=== PATIENT | male | born 1960 | race Caucasian/White ===

== ENCOUNTER 2019-09-19 00:23 | Day surgery (SDC) | payer MEDICARE, MEDICAID, SELFPAY ==
[2019-09-14 12:47] VITALS: BMI 39.5
[2019-09-19 11:44] LABS: Glucose Point of Care 110 (65-105)
[2019-09-19 11:47] VITALS: BP 111/76; PULSE 102; RESP 20; TEMP 36.9; O2SAT 90
[2019-09-19] MEDS: LACTATED RINGERS 1,000 ML 150 ML IV CONT (11:49)
[2019-09-19 11:56] LABS: INR 1.4; Prothrombin Time 16.6 Seconds (11.1-14.7)
[2019-09-19 11:57] LABS: Partial Thromboplastin Time 34.2 SECONDS (22.3-36.8)
--- NOTE | 2019-09-19 12:02 | WPDANESEPPF ---
Anes - Initial Pre Proc Eval Procedure: Operation Date: 09/19/19 12:45 Proposed Procedures p Screening Colonoscopy - Tulio Lawton MD Date/Time: 09/19/19 12:02 Surgeon: Tulio Lawton MD Pre Op Diagnosis: Screening Patient Data Age: 59 Gender: M Height: 5 ft 8 in Weight: 122.4 kg Last Vital Signs Temp 36.9 C 09/19/19 11:47 Pulse 102 H 09/19/19 11:47 Resp 20 09/19/19 11:47 BP 111/76 09/19/19 11:47 Pulse Ox 90 09/19/19 11:47 Allergies Allergy/AdvReac Type Severity Reaction Status Date / Time morphine AdvReac Unknown Increased Verified 09/19/19 11:45 HR Home Medications Medication Instructions Recorded Confirmed Type alprazolam 0.5 mg tablet 0.5 mg PO TID #90 tablet 06/19/19 09/14/19 Rx fluticasone propionate 50 2 spray NASAL DAILY PRN #18.2 ml 06/19/19 09/14/19 Rx mcg/actuation nasal spray,suspension potassium chloride 20 mEq 20 meq PO BID #180 tablet 06/28/19 09/14/19 Rx tablet,extended release albuterol sulfate 90 mcg/actuation 2 puff INHALATION Q4H PRN #6.7 gm 08/04/19 09/14/19 Rx aerosol inhaler furosemide 80 mg tablet 80 mg PO QAM #180 tablet 08/07/19 09/14/19 Rx metoprolol tartrate 100 mg tablet 150 mg PO BID #180 tablet 08/07/19 09/14/19 Rx simvastatin 40 mg tablet 40 mg PO DAILY #180 tablet 08/07/19 09/14/19 Rx warfarin 5 mg tablet See Rx Instructions PO QTUTHSA 08/24/19 09/14/19 Rx #135 tablet hydrocodone 7.5 mg-acetaminophen 1 tablet PO Q6H PRN #120 tablet 08/30/19 09/14/19 Rx 325 mg tablet aspirin 325 mg PO DAILY 09/14/19 09/14/19 History escitalopram oxalate [Lexapro] 5 mg PO DAILY 09/14/19 09/14/19 History metformin 500 mg PO BID 09/14/19 09/14/19 History methimazole 10 mg tablet 20 mg PO DAILY #90 tablet 09/19/19 Rx Laboratory Tests 09/19/19 09/19/19 11:35 11:39 PT 16.6 Seconds H Seconds (11.1-14.7) INR 1.4 APTT 34.2 SECONDS SECONDS (22.3-36.8) POC Capillary Glucose 110 mg/dl mg/dl (65-105) Patient hx anesthesia problems: none Family hx anesthesia problems: none PMFSH Past Medical History Medical History CAD (coronary artery disease) CHF (congestive heart failure) Hx of migraines Family History Family History Father Family history of cardiovascular disease Family history of malignant neoplasm of bone Mother Family history of malignant neoplasm Sibling Family history of cardiovascular disease Social History Social History Smoking status: Former smoker Smoking end date: 07/12/17 Alcohol intake: never Anes - Eval Final PreProcedure Day of Procedure 09/19/19 12:02 Patient weight: morbidly obese Heart: irregular rhythm Lungs: decreased breath sounds Airway: Mallampati scale class II Neurological: other (alert expressive aphasia) Last oral intake: >/= 8 hours ASA classification: IV Emergent: no Anesthetic plan: proceed Anesthesia type and monitoring: general GIVS and standard monitoring Informed Consent: The patient's anesthetic plan and its attendant risks and benefits were discussed with the patient/family/POA. Questions were solicited and answers provided to the satisfaction of the patient/family/POA.
--- NOTE | 2019-09-19 12:56 | PM.HPGS ---
History of Present Illness History of Present Illness Consent: Risks, benefits, and alternatives have been discussed and questions answered. Patient agrees to proceed with procedure. Chief complaint: Screening Narrative: John Peters is a 59 year old male here for first colonoscopy, he has been holding coumadin for 5 days Review of Systems Constitutional: Constitutional: Denies headache(s) and Denies weakness Eyes: Eyes: Denies blurry vision ENT: Reports Normal hearing present, Denies headache(s) and Denies neck pain Cardiovascular: Cardiovascular: Denies chest pain and Denies dyspnea Respiratory: Respiratory: Denies dyspnea Gastrointestinal: Gastrointestinal: Reports no additional gastrointestinal complaints Genitourinary: Genitourinary: Denies dysuria Musculoskeletal: Musculoskeletal: Denies neck pain Integumentary/Breasts: Skin/Breast: Denies dry skin Neurologic: Reports Normal hearing present, Denies headache(s) and Denies weakness Psychiatric: Psychiatric: Denies anxiety Endocrine: Endocrine: Denies change in body appearance Hematologic/Lymphatic: Hematologic/Lymphatic: Denies easy bleeding Allergic/Immunologic: Allergic/Immunologic: Denies urticaria PMFSH Past Medical History Medical History CAD (coronary artery disease) CHF (congestive heart failure) Hx of migraines Family History Family History Father Family history of cardiovascular disease Family history of malignant neoplasm of bone Mother Family history of malignant neoplasm Sibling Family history of cardiovascular disease Social History Social History Smoking status: Former smoker Smoking end date: 07/12/17 Alcohol intake: never Meds Home Medications and Allergies Home Medications Medication Instructions Recorded Confirmed Type alprazolam 0.5 mg tablet 0.5 mg PO TID #90 tablet 06/19/19 09/14/19 Rx fluticasone propionate 50 2 spray NASAL DAILY PRN #18.2 ml 06/19/19 09/14/19 Rx mcg/actuation nasal spray,suspension potassium chloride 20 mEq 20 meq PO BID #180 tablet 06/28/19 09/14/19 Rx tablet,extended release albuterol sulfate 90 mcg/actuation 2 puff INHALATION Q4H PRN #6.7 gm 08/04/19 09/14/19 Rx aerosol inhaler furosemide 80 mg tablet 80 mg PO QAM #180 tablet 08/07/19 09/14/19 Rx metoprolol tartrate 100 mg tablet 150 mg PO BID #180 tablet 08/07/19 09/14/19 Rx simvastatin 40 mg tablet 40 mg PO DAILY #180 tablet 08/07/19 09/14/19 Rx warfarin 5 mg tablet See Rx Instructions PO QTUTHSA 08/24/19 09/14/19 Rx #135 tablet hydrocodone 7.5 mg-acetaminophen 1 tablet PO Q6H PRN #120 tablet 08/30/19 09/14/19 Rx 325 mg tablet aspirin 325 mg PO DAILY 09/14/19 09/14/19 History escitalopram oxalate [Lexapro] 5 mg PO DAILY 09/14/19 09/14/19 History metformin 500 mg PO BID 09/14/19 09/14/19 History methimazole 10 mg tablet 20 mg PO DAILY #90 tablet 09/19/19 Rx Allergies Allergy/AdvReac Type Severity Reaction Status Date / Time morphine AdvReac Unknown Increased Verified 09/19/19 11:45 HR Vital Signs Vital Signs - 24 hr 09/19/19 11:47 Temperature 98.4 F Pulse Rate 102 H Respiratory Rate 20 Blood Pressure 111/76 Pulse Oximetry 90 Exam Const: General: comfortable and no acute distress HENMT: General nose exam: Normal nares present Eyes: General: appearance normal, both eyes and all related structures Neck: Neck: no JVD Resp: Auscultation: clear to auscultation bilaterally Cardio: Rhythm: abnormal rhythm GI: Inspection: non-distended GI Palp: Yes Soft to palpation Skin: General skin exam: normal color Neuro: General: gait normal Speech: normal speech Extrem: General: normal to inspection Psych: Mental Status: mental status grossly normal Assessment and Plan Asse
--- NOTE | 2019-09-19 13:21 | SUR.OPER ---
CLIP PLACED X2 TO TRANSVERSE COLON [id number] EXP 2022-06-10 & LOT [id number] 2022-05-31
--- NOTE | 2019-09-19 13:28 | SUR.OPER ---
CLIP TO DESCENDING COLON LOT [id number] EXP 2022-05-31
--- NOTE | 2019-09-19 13:38 | SUR.OPER ---
CLIP X2 TO SIGMOID [id number] EXP 2022-05-31
[2019-09-19 13:41] VITALS: BP 123/88; PULSE 87; RESP 20; O2SAT 99
[2019-09-19 13:51] VITALS: BP 133/92; PULSE 89; RESP 22; O2SAT 99
[2019-09-19 14:01] VITALS: BP 114/83; PULSE 84; RESP 22; O2SAT 92
== END 2019-09-19 14:16 | disposition home or self-care (01) ==
PROVIDERS: PCP Internal Medicine; Visit Provider Internal Medicine Gastroenterology
PROC: 0DJD8ZZ Inspection of Lower Intestinal Tract, Via Natural or Artificial Opening Endoscopic (ICD-10-PCS; CPT 45378; principal; 2019-09-19 12:45)
DX: Z12.11 Encounter for screening for malignant neoplasm of colon (principal); D12.2 Benign neoplasm of ascending colon; D12.3 Benign neoplasm of transverse colon; D12.5 Benign neoplasm of sigmoid colon; K63.5 Polyp of colon; I25.10 Atherosclerotic heart disease of native coronary artery without angina pectoris; I48.19 Other persistent atrial fibrillation; J44.9 Chronic obstructive pulmonary disease, unspecified; I50.9 Heart failure, unspecified; Z86.73 Personal history of transient ischemic attack (TIA), and cerebral infarction without residual deficits; Z87.891 Personal history of nicotine dependence; Z79.01 Long term (current) use of anticoagulants; Z79.82 Long term (current) use of aspirin; Z79.84 Long term (current) use of oral hypoglycemic drugs
CPT/HCPCS: 45385; 36415; 85610; 85730; 88305; J2704; J7120

== ENCOUNTER 2020-01-31 18:32 | Inpatient (IN) | payer MEDICARE, MEDICAID, SELFPAY ==
--- NOTE | ~2020-01-31 | XR_ITS ---
XR chest 1V portable DATE: 02/01/2020 08:08 INDICATION: Congestive heart failure, coronary artery disease. Weakness. TECHNIQUE: Portable upright AP chest on 02/01/2020 at 0800 hours COMPARISON: 01/31/2020 portable AP chest at 1856 hours FINDINGS: Status post sternotomy. Cardiomegaly. There is pulmonary vascular redistribution consistent with pulmonary venous hypertension. There is minimal atelectasis is suggested at the lung bases. No pulmonary consolidation, pleural effu tamiko or pneumothorax is detected. Osteopenia. IMPRESSION: Cardiomegaly Pulmonary vascular distribution suggests mild pulmonary venous hypertension Minimal atelectasis is suggested at the lung bases Reviewed, dictated and finalized at location B.
--- NOTE | ~2020-01-31 | XR_ITS ---
EXAMINATION: XR chest 1V portable INDICATION: Weakness, history of congestive heart failure TECHNIQUE: Portable AP chest at 1856 hours COMPARISON: 12/23/2018 FINDINGS: Mild interstitial and airspace opacities are present, worst in the mid and lower lung zones . No pleural effusion or pneumothorax is identified. The heart size is normal for technique. Median s ternotomy wires are consistent with prior cardiac surgery. IMPRESSION: 1. Interstitial and airspace opacities, worst in the mid and lower lung zones, consistent with atelec tasis versus pneumonia versus pulmonary edema. Reviewed, dictated and finalized at location A. IMPRESSION: 1. Interstitial and airspace opacities, worst in the mid and lower lung zones, consistent with atelectasis versus pneumonia versus pulmonary edema.
[2020-01-31 18:33] VITALS: BP 117/82; PULSE 133; RESP 17; TEMP 36.8; O2SAT 92
--- NOTE | 2020-01-31 18:38 | ECG_ITS ---
Measurements Intervals [place] Rate: 124 P: [place]: 0 QRS: 112 QRSD: 101 T: 20 QT: 346 QTc: 498 Interpretive Statements ATRIAL FIBRILLATION WITH RAPID VENTRICULAR RESPONSE DELAYED PRECORDIAL R/S TRANSITION BORDERLINE ST-T WAVE ABNORMALITY- DIFFUSE LEADS BASELINE ARTIFACT- I, III, AVL ABNORMAL ECG Electronically Signed On 02-01-2020 8:02:46 CDT by Charli Griffiths D.O.
[2020-01-31 19:02] VITALS: BP 117/82; PULSE 126
[2020-01-31] MEDS: dilTIAZem HCl INJ 25 MG/5 ML VIAL 10 MG IV PUSH (19:02)
[2020-01-31] MEDS: ONDANSETRON INJ 4 MG/2 ML VIAL IV PUSH (19:03)
--- NOTE | 2020-01-31 19:09 | ED.WEAKNESS ---
HPI - Weakness General Chief complaint: Weakness Stated complaint: weakness Time Seen by Provider: 01/31/20 18:42 Source: patient and family History of Present Illness HPI Narrative: 59 years old white male, history of CVA with coordination disorder. Patient lives alone, did not take his medication lately probably since yesterday. Patient reported getting weak over the last few days worse since yesterday. Patient denies any fever, chills, nausea, vomiting, coughing, shortness of breath, chest pain. EKG on arrival to the emergency room showed A. fib at 124 bpm, history of A. fib on Coumadin. Patient is DNR. Does not take oxygen at home, patient on CPAP. Patient came to the emergency room with his brother. Complaint: generalized weakness Related Data Home Medications Medication Instructions Recorded Confirmed aspirin 325 mg PO DAILY 09/14/19 12/11/19 Allergies Allergy/AdvReac Type Severity Reaction Status Date / Time morphine AdvReac Unknown Increased Verified 01/31/20 18:56 HR Review of Systems Review of Systems: Narrative: CONSTITUTIONAL: Denies fever, chills, or sweats. EYES: Denies visual changes, redness, or discharge. ENT: Denies rhinorrhea, congestion, sore throat, or otalgia. CARDIOVASCULAR: Denies chest pain, palpitations, or edema. RESPIRATORY: Denies cough or dyspnea. GASTROINTESTINAL: Denies abdominal pain, nausea, vomiting, or diarrhea. GENITOURINARY: Denies dysuria or hematuria. SKIN: Denies rash or itching. MUSCULOSKELETAL: Denies back pain, joint pain, or myalgia. NEUROLOGIC: Denies headache, numbness, or weakness. PSYCHIATRIC: Denies anxiety or depression. [facility] Past Medical History Medical History CAD (coronary artery disease) CHF (congestive heart failure) Colon cancer screening Hx of migraines Family History Family History Father Family history of cardiovascular disease Family history of malignant neoplasm of bone Mother Family history of malignant neoplasm Sibling Family history of cardiovascular disease Social History Social History Smoking status: Former smoker Smoking end date: 07/12/17 Alcohol intake: never Exam Narrative: Exam Narrative: General appearance: Well-developed, well-nourished, morbidly obese Skin: Normal color Head: Normocephalic, nontraumatic Eyes: Clear conjunctiva ENT: Oropharynx normal, ears normal, nose normal Neck: Supple, nontender Chest and respiratory: Airway patent, no respiratory distress, no accessory muscle use Heart: Tachycardia, irregular irregularity Abdomen: Soft, nontender, no organomegaly, quiet bowel sounds Vascular: Normal peripheral pulses, normal capillary refill. Musculoskeletal: Normal range of motion, nontender back Neurologic: Alert and oriented ?3, [employer] is normal as tested, no gross motor deficit Course Course Emergency Course: Improving Consultations Consultation #1: DR WAGNER Date: 01/31/20 Time: 20:25 Vital Signs Vital signs: Vital Signs Temperature 36.8 C 01/31/20 18:33 Pulse Rate 133 H 01/31/20 18:33 Respiratory Rate 17 01/31/20 18:33 Blood Pressure 117/82 01/31/20 18:33 Pulse Oximetry 92 01/31/20 18:33 Temperature 36.8 C 01/31/20 18:33 Pulse Rate 126 H 01/31/20 19:02 Respiratory Rate 17 01/31/20 18:33 Blood Pressure 117/82 01/31/20 19:02 Pulse Oximetry 92 01/31/20 18:33 MDM - Weakness MDM Narrative Medical decision making narrative: Patient came with general weakness, atrial fibrillation with RVR, nic
[2020-01-31 19:13] LABS: Basophils Absolute Auto 0.1 K/mm3 (0.0-0.1); Basophils Percent Auto 0.4 % (0.2-1.2); Eosinophils Percent Auto 0.1 % (0-4.4); Hematocrit 41.2 % (42.0-52.0); Hemoglobin 12.6 g/dL (14.0-18.0); Immature Granulocyte Absolute 0.07 K/mm3 (0.00-0.031); Immature Granulocyte Percent A 0.6 % (0-0.5); Lymphocytes Absolute Auto 0.61 K/mm3 (0.9-3.2); Lymphocytes Percent Auto 4.9 % (18.3-44.2); Mean Corpuscular HGB Conc 30.6 g/dl (32-36); Mean Corpuscular Hemoglobin 25.5 pg (26-34); Mean Corpuscular Volume 83.4 fl (80-100); Mean Platelet Volume 9.4 fl (7.4-10.4); Monocytes Absolute Auto 1.2 K/mm3 (0.1-0.6); Monocytes Percent Auto 9.5 % (2.6-8.5); Neutrophils Absolute Auto 10.6 K/mm3 (1.3-6.7); Neutrophils Percent Auto 84.5 % (45.5-73.1); Platelet Count Result 179 k/mm3 (150-375); Red Blood Count 4.94 M/mm3 (4.6-6.20); Red Cell Distribution Width 17.9 % (11.5-14.5); White Blood Count 12.5 K/mm3 (4.5-10.0)
[2020-01-31 19:23] LABS: INR 1.9; Prothrombin Time 21.7 Seconds (11.1-14.7)
[2020-01-31 19:24] LABS: Partial Thromboplastin Time 45.2 SECONDS (22.3-36.8)
[2020-01-31 19:25] LABS: Alanine Aminotransferase 39 U/L (4-50); Albumin Level 4.8 g/dL (3.5-5.1); Alkaline Phosphatase 119 U/L (38-126); Anion Gap 18.6 mmol/L (7-16); Aspartate Amino Transferase 211 U/L (17-59); Bilirubin,Total 0.8 mg/dL (0.2-1.3); Blood Urea Nitrogen 30 mg/dL (9-20); Calcium 8.8 mg/dL (8.4-10.2); Carbon Dioxide 25 mmol/L (22-30); Chloride 100 mmol/L (98-107); Estimated CRCL calculation 65 ml/min; Estimated Glomerular Filt Rate 52; Glucose 159 mg/dL (75-110); Potassium 3.6 mmol/L (3.4-5.0); Sodium 140 mmol/L (137-145)
[2020-01-31 19:34] LABS: Add Urine Microscopic? YES; Appearance Urine Clear (Clear); Bilirubin Urine Negative (Negative); Blood Urine 3+ (Negative); Color Urine Yellow (Yellow); Glucose Urine UA Negative (Negative); Ketones Urine Negative (Negative); Leukocyte Esterase Ur Negative LEU/UL (Negative); Mucus Urine Rare /lpf; Nitrate Urine Negative (Negative); Protein Urine 2+ mg/dL (Negative); RBC Urine 0-2 /hpf (0-2); Specific Grav Ur 1.017 (1.001-1.035); Squamous Epithelial Cell Urine Rare /hpf (Few); Urobilinogen Urine Negative mg/dL (<2.0); WBC Urine 0-3 /hpf
[2020-01-31 19:36] LABS: NT Pro B Type Natriuretic Pept 3310 PG/ML (5-100); Troponin I < 0.012 ng/mL (0.000-0.034)
[2020-01-31 19:45] LABS: Alveolar/Arterial O2 Gradient 48.4 mmHg; Base Excess ABG -4.8 mEq/l (+/-2.0); Fractional Inspired Oxygen 21 %; HCO3 ABG 21.2 mEq/l (22.0-26.0); Oxyhemoglobin 80.5 % THb (90.0-100.0); PCO2 ABG 42.6 mmHg (35.0-45.0); PO2 ABG 50.3 mmHg (80.0-100.0); Total Hemoglobin 13.3 g/dL (12.0-18.0); pH ABG 7.315 (7.350-7.450)
[2020-01-31 19:46] LABS: Device ROOM AIR; Modified Allen's Test Pass; Oxygen Saturation ABG 82.5 % (95.0-100.0); Site Drawn RIGHT RADIAL
[2020-01-31] MEDS: FUROSEMIDE INJ 100 MG/10 ML VIAL 80 MG IV PUSH (20:07)
--- NOTE | 2020-01-31 20:26 | PC.NURSE ---
pt placed on 3L nasal cannula for 02 saturation of 82% on ABG per verbal order
[2020-01-31 20:30] VITALS: BP 123/89; PULSE 114; RESP 14; O2SAT 99
--- NOTE | 2020-01-31 21:08 | PM.IMHP ---
H&P: HPI History of Present Illness Chief complaint: Rapid A. fib, CHF, JESUS, urinary retention, Narrative: This is a 59 year old morbidly obese male with known history of Atrial fibrillation on chronic coumadin therapy, CAD, CHF, s/p aortic valve repair who presented to the hospital with a complaints of increased generalized weakness and back pain. The patient admits that he has not taken his medications for over 48 hours and that he spent most of yesterday sitting in his chair. He isn't sure if he has had any increased lower extremity swelling but denies any fevers, chills, chest pain, cough, shortness of breath, abdominal pain, dysuria, hematuria, nausea, vomiting or diarrhea. The patient was evaluated in the ER tonight and found to be in rapid atrial fibrillation. The patient was started on Cardizem IV for rate control. He denies any known contact with anyone who might have coronavirus. The patient was swabbed for coronavirus in the ER tonight. He has not other complaints. Review of Systems Review of Systems: All systems reviewed & are unremarkable except as noted in HPI and below PMFSH Past Medical History Medical History (Updated 01/31/20 @ 23:29 by Manuel Prajapati MD) CAD (coronary artery disease) CHF (congestive heart failure) Colon cancer screening Hx of migraines Surgical History Surgical History (Updated 01/31/20 @ 21:43 by Manuel Prajapati MD) Hx of aortic valve repair Family History Family History Father Family history of cardiovascular disease Family history of malignant neoplasm of bone Mother Family history of malignant neoplasm Sibling Family history of cardiovascular disease Social History Social History Smoking packs per day: 1 Smoking cigarettes per day: 20.0 Years smoked: 30 Smoking pack-years: 30.00 Smoking status: Former smoker Second hand tobacco smoke exposure: No Smoking end date: 07/12/17 Alcohol intake: former Substance use: current Spiritual care concerns: No Meds Home Medications and Allergies Home Medications Medication Instructions Recorded Confirmed Type potassium chloride 20 mEq 20 meq PO BID #180 tablet 06/28/19 01/31/20 Rx tablet,extended release metoprolol tartrate 100 mg tablet 150 mg PO BID #180 tablet 08/07/19 01/31/20 Rx aspirin 325 mg PO DAILY 09/14/19 01/31/20 History simvastatin 40 mg tablet 40 mg PO DAILY #180 tablet 10/03/19 01/31/20 Rx escitalopram oxalate 5 mg tablet 5 mg PO DAILY #90 tablet 10/12/19 01/31/20 Rx metformin 500 mg tablet 500 mg PO BID #180 tablet 11/24/19 01/31/20 Rx fluticasone propionate 50 2 spray NASAL DAILY PRN #18.2 ml 12/27/19 01/31/20 Rx mcg/actuation nasal spray,suspension furosemide 80 mg tablet 80 mg PO BID #180 tablet 12/27/19 01/31/20 Rx alprazolam 0.5 mg tablet 0.5 mg PO TID #90 tablet 01/29/20 01/31/20 Rx albuterol sulfate 2 puff INHALATION Q4H PRN 01/31/20 01/31/20 History hydrocodone-acetaminophen 1 tablet PO Q6H PRN 01/31/20 01/31/20 History methimazole 20 mg PO DAILY 01/31/20 01/31/20 History warfarin 5 mg PO QMWF 01/31/20 01/31/20 History warfarin 7.5 mg PO QTUTHSASU 01/31/20 01/31/20 History Allergies Allergy/AdvReac Type Severity Reaction Status Date / Time morphine AdvReac Unknown Increased Verified 01/31/20 18:56 HR Vital Signs Vital Signs - 24 hr 01/31/20 18:33 01/31/20 19:02 01/31/20 20:30 Temperature 36.8 C Pulse Rate 133 H 126 H 114 H Respiratory Rate 17 14 Blood Pressure 117/82 117/82 123/89 Pulse Oximetry 92 99 Exam Const: General: cooperative, alert, awake and ill appearing chronically Nutritional Appearance: obese morbidly obese Orientation/consciousness: patient oriented x3 HENMT: Head: normal to inspection General nose exam: Normal external nose present Face and sinus: normal facial exam Mouth: Yes
[2020-01-31 21:46] VITALS: BP 94/84; PULSE 103; RESP 16; TEMP 36.6; O2SAT 99
[2020-01-31 22:15] LABS: Troponin I < 0.012 ng/mL (0.000-0.034)
[2020-01-31 22:22] VITALS: BMI 40.8
--- NOTE | 2020-01-31 22:40 | ADMIMU ---
This patient, John Peters, was admitted to IMU status, and placed in Intensive Care Unit-5. Patient/family oriented to hospital policies and general routines including ID bracelet, bed and alarms, visiting hours, pain management, procedures, bathroom and other care routines, personal items, smoking policy, room service/diet, and visiting hours. Valuables list has been completed. Information on how to activate the Rapid Response Team has been discussed. Patient/Family are encouraged to report perceived risks to care and to ask questions if they do not understand what they are told or what they should do.
[2020-01-31 22:45] VITALS: BP 100/78; PULSE 105; RESP 16; O2SAT 93
[2020-01-31] MEDS: ENOXAPARIN 120 MG/0.8 ML SYRINGE SUB-Q (22:47)
[2020-01-31 23:00] VITALS: BP 100/78; PULSE 108
[2020-02-01] VITALS (15 sets, daily range): BP systolic 96–113; BP diastolic 67–81; PULSE 95–122; RESP 11–20; TEMP 37.1–37.3; O2SAT 93–97
[2020-02-01 05:53] LABS: SARS-CoV-2 RNA PCR Negative
[2020-02-01] MEDS: ALPRAZolam 0.5 MG TABLET PO ×3 (06:03→21:29)
--- NOTE | 2020-02-01 06:23 | PC.NURSE ---
Pt refused labs during the entire shift because he wants pain meds
[2020-02-01 08:44] LABS: Basophils Percent Auto 0.4 % (0.2-1.2); Eosinophils Absolute Auto 0.2 K/mm3 (0-0.3); Eosinophils Percent Auto 1.6 % (0-4.4); Hematocrit 38.3 % (42.0-52.0); Hemoglobin 11.6 g/dL (14.0-18.0); Immature Granulocyte Absolute 0.06 K/mm3 (0.00-0.031); Immature Granulocyte Percent A 0.5 % (0-0.5); Lymphocytes Absolute Auto 0.74 K/mm3 (0.9-3.2); Lymphocytes Percent Auto 6.7 % (18.3-44.2); Mean Corpuscular HGB Conc 30.3 g/dl (32-36); Mean Corpuscular Hemoglobin 25.4 pg (26-34); Mean Platelet Volume 9.4 fl (7.4-10.4); Monocytes Absolute Auto 1.1 K/mm3 (0.1-0.6); Monocytes Percent Auto 9.8 % (2.6-8.5); Neutrophils Absolute Auto 8.9 K/mm3 (1.3-6.7); Platelet Count Result 166 k/mm3 (150-375); Red Blood Count 4.56 M/mm3 (4.6-6.20)
[2020-02-01 08:52] LABS: INR 2.1; Prothrombin Time 22.8 Seconds (11.1-14.7)
[2020-02-01 08:59] LABS: Anion Gap 10.7 mmol/L (7-16); Anion Gap 11.6 mmol/L (7-16); Blood Urea Nitrogen 23 mg/dL (9-20); Calcium 8.1 mg/dL (8.4-10.2); Calcium 8.3 mg/dL (8.4-10.2); Carbon Dioxide 31 mmol/L (22-30); Carbon Dioxide 33 mmol/L (22-30); Chloride 97 mmol/L (98-107); Estimated CRCL calculation 88 ml/min; Estimated Glomerular Filt Rate > 60; Glucose 132 mg/dL (75-110); Lactic Acid Reflex 0.9 mmol/L (0.7-2.1); Magnesium 2.3 mg/dL (1.6-2.3); Phosphorus 3.7 mg/dL (2.5-4.5); Potassium 3.6 mmol/L (3.4-5.0); Potassium 3.7 mmol/L (3.4-5.0); Sodium 136 mmol/L (137-145); Sodium 137 mmol/L (137-145)
[2020-02-01 09:10] LABS: Troponin I < 0.012 ng/mL (0.000-0.034)
[2020-02-01] MEDS: ASPIRIN 325 MG TABLET PO (09:49)
[2020-02-01] MEDS: ESCITALOPRAM OXALATE 5 MG TABLET PO (09:49)
[2020-02-01] MEDS: ENOXAPARIN 120 MG/0.8 ML SYRINGE SUB-Q (09:49)
[2020-02-01] MEDS: SIMVASTATIN 20 MG TABLET 40 MG PO (09:50)
[2020-02-01] MEDS: FUROSEMIDE INJ 40 MG/4 ML VIAL 80 MG IV PUSH (09:50)
[2020-02-01 10:13] LABS: Creatine Kinase 13280 U/L (55-170)
[2020-02-01 13:21] LABS: Free T4 Free Thyroxine Reflex 0.12 ng/dL (0.78-2.19)
--- NOTE | 2020-02-01 17:15 | PC.NURSE ---
This patient, John Peters, was received from ICU 5 on 02/01/20 at 1715. Report received from KENYA Chowdary. Patient/family oriented to unit policies and routines
[2020-02-01] MEDS: WARFARIN (*PBKC) 7.5 MG TABLET PO (17:16)
--- NOTE | 2020-02-01 17:27 | PM.IMPN ---
Progress Note: A&P Assessment and Plan (1) Atrial fibrillation with rapid ventricular response: Code(s): I48.91 - Unspecified atrial fibrillation Status: Acute Assessment and Plan: Patient noted to be in AFib/RVR on admission. Diltiazem drip started. He is on Metoprolol for rate control. INR mildly subtherapeutic. Brother states patient very compliant with his medications. HR still mildly elevated but BP soft. Will keep on drip for tonight and stop Lasix. IV fluids should help with BP. Transition to oral meds tomorrow as BP allows. Echo as mentioned below. (2) Rhabdomyolysis: Code(s): M62.82 - Rhabdomyolysis Status: Acute Assessment and Plan: Patient down for an extended period with elevated AST and 3+ blood in urine but no red cells consistent with rhabdo. Stop Lasix. Start IV fluids. PT/OT. Check lumbar spine xray and brain CT since he fell. (3) Acute CHF (congestive heart failure): Qualifiers: Heart failure type: unspecified Qualified Code(s): I50.9 - Heart failure, unspecified Code(s): I50.9 - Heart failure, unspecified Status: Acute Assessment and Plan: CXR showing mild intersistial airspace disease. BNP 3310. Patient stared on IV Lasix on admission. Excellent UOP. Cr 1.4 but improved to 1.0 today. Patient probably fluid overloaded and Lasix has improved renal perfusion. Will stop Lasix now that rhabdomyolysis has been recognized. Start IV fluids and will give intermittent Lasix as needed until TCK improves. Echo showng EF 50-55% wiht diastolic dysfunction. (4) JESUS (acute kidney injury): Code(s): N17.9 - Acute kidney failure, unspecified Status: Acute Assessment and Plan: Likely secondary to rhabdomyolysis. Cr impoved. Continue to monitor renal function. Avoid nephrotoxic agents. Renally dose medications. Monitor Cr closely given the Lasix IV and rhabdo. (5) High anion gap metabolic acidosis: Code(s): E87.2 - Acidosis Status: Acute Assessment and Plan: Likely secondary to poor perfusion. Lactic acid normal. No urine ketones. Related to rhabdo? AG has closed. (6) Subtherapeutic international normalized ratio (INR): Code(s): R79.1 - Abnormal coagulation profile Status: Acute Assessment and Plan: INR is subtherapeuticat 1.9. He was started on therapeutic Lovenox to bridge. INR 2.1 today so will stop Lovenox. Continue warfarin. Daily INR. (7) Hyperthyroidism: Code(s): E05.90 - Thyrotoxicosis, unspecified without thyrotoxic crisis or storm Status: Acute Assessment and Plan: Patient with hyperthyroidism. TSH 29.5 with low FT4 at 0.12. Hyperthyroidism too well controlled. Will stop his methimazole for now. Resume in a few days at lower dose. (8) Acute urinary retention: Code(s): R33.8 - Other retention of urine Status: Acute Assessment and Plan: Patient with urine retention. Walker secured. Will attempt Walker trial in a few days. Add Flomax as BP allows. (9) Suspected 2019 novel coronavirus infection: Code(s): Z20.828 - Contact with and (suspected) exposure to other viral communicable diseases Status: Acute Assessment and Plan: COVID-19 negative. Isolation stopped. Subjective Date/time seen: 02/01/20 17:27 Interval history: 59yo male with AFib on Coumadin, CAD, CHF, s/p aortic valve repair here for increased generalized weakness and back pain. He states he was having back pain and went to lie on the floor. He couldn't get back up and layed on the floor for about 6hours. No head injury, fall or LOC. He normally sleeps in a recliner. His brother states patietn told him that he had fallen and was down for at least 18 hours. Patient has hx of CVA 18 months ago. Brother states patient did not have imaging because he would become belligerent. Patietn complains of back pain
[2020-02-01] MEDS: SODIUM CHLORIDE 0.9% IV 1,000 ML 125 ML IV CONT (18:10)
--- NOTE | 2020-02-01 20:15 | PC.NURSE ---
PT. REFUSED TO HAVE XRAYS AND CT SCAN. STATES HE DID NOT FALL. RADIOLOGY DEPT. NOTIFIED.
[2020-02-01] MEDS: ACETAMINOPHEN 325 MG TABLET 650 MG PO (21:28)
--- NOTE | 2020-02-01 23:09 | ECHO_ITS ---
Patient Info Name: John Peters Age: 59 years : 1960 Gender: Male Ht: 68 in Wt: 269 lbs BSA: 2.48 m2 HR: 110 bpm BP: 105 / 71 mmHg Heart Rhythm: Atrial Fibrillation Technical Quality: Good Exam Date: 02/01/2020 1:10 PM Exam Location: [facility] Pulmonary Patient Status: Inpatient Admit Date: 01/31/2020 Staff Ordering Physician: Manuel Prajapati MD Emergency Medical Service Coordinator: Lamont Yip RDCS Attending Provider: Manuel Prajapati MD Referring Physician: Victorina SCHULER; Exam Type: CA echo dop color flow w con Study Info Indications I48.1 - Persistent atrial fibrillation Complete two-dimensional, color flow and Doppler transthoracic echocardiogram is performed with contrast to opacify the left ventricle and to improve the deliniation of the left ventricle endocardial borders. Contrast/Agitated Saline Contrast/Ag. Saline: Definity Amount: 2.00 ml Administered By: Gayathri Gorman RN Existing IV Access: Yes History/Risk Factors Atrial fibrillation w/ MV Ring, CHF, CAD, edema. Summary 1. Left ventricular chamber dimension is mildly enlarged. 2. Left ventricular systolic function is mildly reduced, estimated at 50-55%. 3. There is mildly increased left ventricular wall thickness. 4. The left ventricular diastolic function is abnormal. 5. Left atrial chamber dimension is moderately enlarged. 6. There is mild regurgitation of the annuloplasty ring prosthetic mitral valve. 7. There is mild tricuspid valve regurgitation. 8. Mild pulmonary hypertension, estimated pulmonary arterial systolic pressure is 39 mmHg. Left Ventricle Left ventricular chamber dimension is mildly enlarged. Left ventricular systolic function is mildly reduced, estimated at 50-55%. There is mildly increased left ventricular wall thickness. The left ventricular diastolic function is abnormal. Right Ventricle Right ventricular chamber dimension is normal. Right ventricular systolic function is normal. Left Atria Left atrial chamber dimension is moderately enlarged. Right Atria Right atrial chamber dimension is normal. Atrial Septum Intact interatrial septum visualized by color flow imaging. Aortic Valve The aortic valve is trileaflet. There is mild aortic valve sclerosis. There is no aortic valve stenosis. There is trace aortic valve regurgitation. Pulmonic Valve The pulmonic valve is normal. There is no pulmonic valve stenosis. There is trace pulmonic regurgitation. Mitral Valve There is no stenosis of the annuloplasty ring prosthetic mitral valve. There is mild regurgitation of the annuloplasty ring prosthetic mitral valve. Tricuspid Valve The tricuspid valve leaflets are normal. There is no significant tricuspid valve stenosis. There is mild tricuspid valve regurgitation. Mild pulmonary hypertension, estimated pulmonary arterial systolic pressure is 39 mmHg. Pericardium/Pleural The pericardium appears normal. There is no pericardial effusion. Inferior Vena Cava Normal inferior vena cava with >50% collapse upon inspiration consistent with normal right atrial pressure, 5 mmHg. Aorta The aortic root size at the sinus of Valsalva is normal. Left Ventricular Outflow Tract Name Value Normal LVOT 2D
[2020-02-02] VITALS (13 sets, daily range): BP systolic 95–123; BP diastolic 60–79; PULSE 86–139; RESP 18–22; TEMP 36–36.6; O2SAT 91–98
[2020-02-02] MEDS: SODIUM CHLORIDE 0.9% IV 1,000 ML 125 ML IV CONT ×3 (00:14→23:07)
[2020-02-02] MEDS: ACETAMINOPHEN 325 MG TABLET 650 MG PO (03:08)
[2020-02-02 05:13] LABS: Basophils Percent Auto 0.5 % (0.2-1.2); Eosinophils Absolute Auto 0.4 K/mm3 (0-0.3); Eosinophils Percent Auto 4.7 % (0-4.4); Hematocrit 36.1 % (42.0-52.0); Hemoglobin 10.6 g/dL (14.0-18.0); Immature Granulocyte Absolute 0.02 K/mm3 (0.00-0.031); Immature Granulocyte Percent A 0.3 % (0-0.5); Lymphocytes Absolute Auto 0.81 K/mm3 (0.9-3.2); Lymphocytes Percent Auto 10.7 % (18.3-44.2); Mean Corpuscular HGB Conc 29.4 g/dl (32-36); Mean Corpuscular Hemoglobin 25.3 pg (26-34); Mean Corpuscular Volume 86.2 fl (80-100); Mean Platelet Volume 9.8 fl (7.4-10.4); Monocytes Percent Auto 13.7 % (2.6-8.5); Neutrophils Absolute Auto 5.3 K/mm3 (1.3-6.7); Neutrophils Percent Auto 70.1 % (45.5-73.1); Platelet Count Result 160 k/mm3 (150-375); Red Blood Count 4.19 M/mm3 (4.6-6.20); Red Cell Distribution Width 17.9 % (11.5-14.5); White Blood Count 7.6 K/mm3 (4.5-10.0)
[2020-02-02 05:18] LABS: INR 2.2; Prothrombin Time 23.8 Seconds (11.1-14.7)
[2020-02-02 05:26] LABS: Alanine Aminotransferase 35 U/L (4-50); Albumin Level 3.7 g/dL (3.5-5.1); Alkaline Phosphatase 88 U/L (38-126); Anion Gap 9.7 mmol/L (7-16); Aspartate Amino Transferase 132 U/L (17-59); Bilirubin,Total 0.4 mg/dL (0.2-1.3); Blood Urea Nitrogen 20 mg/dL (9-20); Calcium 7.8 mg/dL (8.4-10.2); Carbon Dioxide 33 mmol/L (22-30); Chloride 97 mmol/L (98-107); Estimated CRCL calculation 88 ml/min; Estimated Glomerular Filt Rate > 60; Glucose 156 mg/dL (75-110); Magnesium 2.3 mg/dL (1.6-2.3); Phosphorus 2.8 mg/dL (2.5-4.5); Potassium 3.7 mmol/L (3.4-5.0); Sodium 136 mmol/L (137-145)
[2020-02-02] MEDS: ALPRAZolam 0.5 MG TABLET PO ×2 (06:08→21:35)
[2020-02-02 06:11] LABS: Creatine Kinase 7059 U/L (55-170)
[2020-02-02] MEDS: ASPIRIN 325 MG TABLET PO (09:13)
[2020-02-02] MEDS: ESCITALOPRAM OXALATE 5 MG TABLET PO (09:13)
--- NOTE | 2020-02-02 11:54 | PM.IMPN ---
Progress Note: A&P Assessment and Plan (1) Atrial fibrillation with rapid ventricular response: Code(s): I48.91 - Unspecified atrial fibrillation Status: Acute Assessment and Plan: Patient noted to be in AFib/RVR on admission. Diltiazem drip started. He is on Metoprolol at home for rate control. Brother states patient very compliant with his medications. HR still mildly elevated but BP soft at times. Will transition to oral diltiazem and then resume metoprolol at lower dose as BP toelrates. Increase activity. (2) Rhabdomyolysis: Code(s): M62.82 - Rhabdomyolysis Status: Acute Assessment and Plan: Patient down for an extended period with elevated AST and 3+ blood in urine but no red cells [place] [address]. Lasix stopped and IV fluids started. TCK today 7060. Continue PT/OT. Patient refusing any imaging studies. (3) Acute CHF (congestive heart failure): Qualifiers: Heart failure type: unspecified Qualified Code(s): I50.9 - Heart failure, unspecified Code(s): I50.9 - Heart failure, unspecified Status: Acute Assessment and Plan: CXR showing mild intersistial airspace disease. BNP 3310. Echo 02/01/20 showing EF 50-55% with diastolic dysfunction. Patient stared on IV Lasix on admission. Excellent UOP. Cr 1.4 but improved to 1.0. Patient probably fluid overloaded and Lasix has improved renal perfusion. Lasix stopped once rhabdomyolysis had been recognized. IV fluids started and will give intermittent Lasix as needed until TCK improves. (4) JESUS (acute kidney injury): Code(s): N17.9 - Acute kidney failure, unspecified Status: Acute Assessment and Plan: Likely secondary to rhabdomyolysis. Cr improved and stable. Continue to monitor renal function. Avoid nephrotoxic agents. Renally dose medications. Monitor Cr closely (5) High anion gap metabolic acidosis: Code(s): E87.2 - Acidosis Status: Acute Assessment and Plan: Likely secondary to poor perfusion. Lactic acid normal. No urine ketones. Related to rhabdo? AG has closed. (6) Subtherapeutic international normalized ratio (INR): Code(s): R79.1 - Abnormal coagulation profile Status: Acute Assessment and Plan: INR is subtherapeutic at 1.9 on admission. He was started on therapeutic Lovenox to bridge. INR became therapeutic so will stop Lovenox. INR 2.2. Continue warfarin. Daily INR. (7) Hyperthyroidism: Code(s): E05.90 - Thyrotoxicosis, unspecified without thyrotoxic crisis or storm Status: Acute Assessment and Plan: Patient with hyperthyroidism. TSH 29.5 with low FT4 at 0.12. Hyperthyroidism too well controlled. Methimazole on hold for now. Resume in a few days at lower dose. (8) Acute urinary retention: Code(s): R33.8 - Other retention of urine Status: Acute Assessment and Plan: Patient with urine retention. Walker secured. Will attempt Walker trial in a few days. Add Flomax as BP allows. (9) Suspected 2019 novel coronavirus infection: Code(s): Z20.828 - Contact with and (suspected) exposure to other viral communicable diseases Status: Acute Assessment and Plan: COVID-19 negative. Isolation stopped. Subjective Date/time seen: 02/02/20 11:54 Interval history: 59yo male with AFib on Coumadin, CAD, CHF, s/p aortic valve repair here for increased generalized weakness and back pain. Patient refused CT of the brain and x-ray. He denies that he fell. He is requesting information on how to change POA since he dislikes his brother's involvement. He denies any chest pain or palpitations. Still has the back pain. Denies any nausea or vomiting. Eating normally Exam Narrative: Exam Narrative: AF 95/60 106 20 91% 2L Gen - NARD lying semi-recumbent in bed Chest - bilateral LL crackles, nml RR CV - Irregularly irre
[2020-02-02] MEDS: dilTIAZem HCL 30 MG TABLET PO ×3 (13:10→23:08)
[2020-02-02] MEDS: WARFARIN (*PBKC) 5 MG TABLET PO (18:12)
[2020-02-03] VITALS (17 sets, daily range): BP systolic 111–137; BP diastolic 56–94; PULSE 92–134; RESP 12–22; TEMP 36–37.6; O2SAT 90–98
[2020-02-03 05:04] LABS: Basophils Absolute Auto 0.1 K/mm3 (0.0-0.1); Basophils Percent Auto 0.7 % (0.2-1.2); Eosinophils Absolute Auto 0.4 K/mm3 (0-0.3); Eosinophils Percent Auto 5.8 % (0-4.4); Hematocrit 35.8 % (42.0-52.0); Hemoglobin 10.2 g/dL (14.0-18.0); Immature Granulocyte Absolute 0.04 K/mm3 (0.00-0.031); Immature Granulocyte Percent A 0.5 % (0-0.5); Lymphocytes Absolute Auto 0.76 K/mm3 (0.9-3.2); Lymphocytes Percent Auto 10.2 % (18.3-44.2); Mean Corpuscular HGB Conc 28.5 g/dl (32-36); Mean Corpuscular Hemoglobin 25.3 pg (26-34); Mean Corpuscular Volume 88.8 fl (80-100); Mean Platelet Volume 9.6 fl (7.4-10.4); Monocytes Absolute Auto 0.8 K/mm3 (0.1-0.6); Monocytes Percent Auto 10.6 % (2.6-8.5); Neutrophils Absolute Auto 5.4 K/mm3 (1.3-6.7); Neutrophils Percent Auto 72.2 % (45.5-73.1); Platelet Count Result 158 k/mm3 (150-375); Red Blood Count 4.03 M/mm3 (4.6-6.20); Red Cell Distribution Width 18.3 % (11.5-14.5); White Blood Count 7.4 K/mm3 (4.5-10.0)
[2020-02-03 05:18] LABS: Prothrombin Time 22.1 Seconds (11.1-14.7)
[2020-02-03 05:19] LABS: Alanine Aminotransferase 37 U/L (4-50); Albumin Level 3.6 g/dL (3.5-5.1); Alkaline Phosphatase 83 U/L (38-126); Anion Gap 8.7 mmol/L (7-16); Aspartate Amino Transferase 92 U/L (17-59); Bilirubin,Total 0.3 mg/dL (0.2-1.3); Blood Urea Nitrogen 14 mg/dL (9-20); Calcium 8.1 mg/dL (8.4-10.2); Carbon Dioxide 35 mmol/L (22-30); Chloride 99 mmol/L (98-107); Creatine Kinase 2344 U/L (55-170); Estimated CRCL calculation 102 ml/min; Estimated Glomerular Filt Rate > 60; Glucose 134 mg/dL (75-110); Magnesium 2.4 mg/dL (1.6-2.3); Phosphorus 3.1 mg/dL (2.5-4.5); Potassium 4.7 mmol/L (3.4-5.0); Sodium 138 mmol/L (137-145)
[2020-02-03] MEDS: ALPRAZolam 0.5 MG TABLET PO ×3 (05:34→22:02)
[2020-02-03] MEDS: dilTIAZem HCL 30 MG TABLET PO ×4 (05:34→23:53)
[2020-02-03] MEDS: SODIUM CHLORIDE 0.9% IV 1,000 ML 125 ML IV CONT ×2 (06:39→14:47)
[2020-02-03 07:30] LABS: Hypochromasia 1+ (NORMAL); Platelet Estimate Adequate (Adequate)
[2020-02-03] MEDS: ASPIRIN 325 MG TABLET PO (07:39)
[2020-02-03] MEDS: ESCITALOPRAM OXALATE 5 MG TABLET PO (07:40)
--- NOTE | 2020-02-03 14:09 | PM.IMPN ---
Progress Note: A&P Assessment and Plan (1) Atrial fibrillation with rapid ventricular response: Code(s): I48.91 - Unspecified atrial fibrillation Status: Acute Assessment and Plan: Patient has chronic AFib and noted to be in RVR on admission. Diltiazem drip started. He is on Metoprolol at home for rate control. Brother states patient very compliant with his medications. Able to be transitioned to oral diltiazem and rate reasonable. Will add back lower dose Metoprolol and continue to advance medciations as his BP tolerates. (2) Rhabdomyolysis: Code(s): M62.82 - Rhabdomyolysis Status: Acute Assessment and Plan: Patient down for an extended period with elevated AST and 3+ blood in urine but no red cells consistent with rhabdo. TCK 11022. Lasix stopped and IV fluids started. TCK today 2344. Continue PT/OT. Patient refusing any imaging studies. Check UA. Decrease fluid rate and start Lasix. (3) Acute CHF (congestive heart failure): Qualifiers: Heart failure type: unspecified Qualified Code(s): I50.9 - Heart failure, unspecified Code(s): I50.9 - Heart failure, unspecified Status: Acute Assessment and Plan: CXR showing mild intersistial airspace disease. BNP 3310. Echo 02/01/20 showing EF 50-55% with diastolic dysfunction. Patient stared on IV Lasix on admission. Excellent UOP. Cr 1.4 but improved to 1.0. Patient probably fluid overloaded and Lasix has improved renal perfusion. Lasix stopped once rhabdomyolysis had been recognized. IV fluids started. Will decrease IV fluid rate. Start IV Lasix. (4) JESUS (acute kidney injury): Code(s): N17.9 - Acute kidney failure, unspecified Status: Acute Assessment and Plan: Likely secondary to rhabdomyolysis. Cr improved and stable. Continue to monitor renal function. Avoid nephrotoxic agents. Renally dose medications. Monitor Cr closely (5) High anion gap metabolic acidosis: Code(s): E87.2 - Acidosis Status: Acute Assessment and Plan: Likely secondary to poor perfusion. Lactic acid normal. No urine ketones. Related to rhabdo? AG has closed. (6) Subtherapeutic international normalized ratio (INR): Code(s): R79.1 - Abnormal coagulation profile Status: Acute Assessment and Plan: INR was subtherapeutic at 1.9 on admission. He was started on therapeutic Lovenox to bridge. INR became therapeutic so Lovenox stopped. INR 2.0. Continue warfarin. Daily INR. (7) Hyperthyroidism: Code(s): E05.90 - Thyrotoxicosis, unspecified without thyrotoxic crisis or storm Status: Acute Assessment and Plan: Patient with hyperthyroidism. TSH 29.5 with low FT4 at 0.12. Hyperthyroidism too well controlled. Methimazole on hold for now. Resume in a few days at lower dose. (8) Acute urinary retention: Code(s): R33.8 - Other retention of urine Status: Acute Assessment and Plan: Patient with urine retention. Walker secured. Will attempt Walker trial in a few days. Add Flomax tomorrow if BP tolerates the metoprolol. (9) Suspected 2019 novel coronavirus infection: Code(s): Z20.828 - Contact with and (suspected) exposure to other viral communicable diseases Status: Acute Assessment and Plan: COVID-19 negative. Isolation stopped. Subjective Date/time seen: 02/03/20 14:09 Interval history: 59yo male with AFib on Coumadin, CAD, CHF, s/p aortic valve repair here for increased generalized weakness and back pain. Patient still with back pain. He slept well last night. He has been up walking with assistance. He denies any chest pain. He denies any orthopnea. No shortness of breath. Exam Narrative: Exam Narrative: AF 112/73 122 20 94% ra Gen - NARD Chest - bilateral LL crackles, nml RR CV - Irregularly irregular and tachycaridc. Tele showing AFib with occasional RVR.
[2020-02-03] MEDS: WARFARIN (*PBKC) 7.5 MG TABLET PO (17:34)
[2020-02-03] MEDS: FUROSEMIDE INJ 40 MG/4 ML VIAL IV PUSH (18:08)
[2020-02-03] MEDS: METOPROLOL TARTRATE 25 MG TABLET PO ×2 (18:09→22:02)
[2020-02-04] VITALS (20 sets, daily range): BP systolic 113–141; BP diastolic 69–85; PULSE 91–131; RESP 16–20; TEMP 35.9–37.2; O2SAT 90–96
[2020-02-04 00:07] LABS: Add Urine Microscopic? YES; Appearance Urine Clear (Clear); Bilirubin Urine Negative (Negative); Blood Urine 3+ (Negative); Color Urine Yellow (Yellow); Glucose Urine UA Negative (Negative); Ketones Urine Negative (Negative); Leukocyte Esterase Ur Trace LEU/UL (NEGATIVE); Mucus Urine Rare /lpf; Nitrate Urine Negative (Negative); Protein Urine 1+ mg/dL (Negative); RBC Urine >75 /hpf (0-2); Specific Grav Ur 1.017 (1.001-1.035); Squamous Epithelial Cell Urine Rare /hpf (Few); Urobilinogen Urine Negative mg/dL (<2.0)
[2020-02-04] MEDS: SODIUM CHLORIDE 0.9% IV 1,000 ML 75 ML IV CONT (04:09)
[2020-02-04 05:36] LABS: Basophils Percent Auto 0.5 % (0.2-1.2); Eosinophils Absolute Auto 0.3 K/mm3 (0-0.3); Eosinophils Percent Auto 3.2 % (0-4.4); Hematocrit 36.3 % (42.0-52.0); Hemoglobin 10.4 g/dL (14.0-18.0); Immature Granulocyte Absolute 0.05 K/mm3 (0.00-0.031); Immature Granulocyte Percent A 0.6 % (0-0.5); Lymphocytes Absolute Auto 0.61 K/mm3 (0.9-3.2); Lymphocytes Percent Auto 7.5 % (18.3-44.2); Mean Corpuscular HGB Conc 28.7 g/dl (32-36); Mean Corpuscular Hemoglobin 25.6 pg (26-34); Mean Corpuscular Volume 89.2 fl (80-100); Mean Platelet Volume 10.2 fl (7.4-10.4); Monocytes Absolute Auto 0.9 K/mm3 (0.1-0.6); Monocytes Percent Auto 10.9 % (2.6-8.5); Neutrophils Absolute Auto 6.2 K/mm3 (1.3-6.7); Neutrophils Percent Auto 77.3 % (45.5-73.1); Platelet Count Result 174 k/mm3 (150-375); Red Blood Count 4.07 M/mm3 (4.6-6.20); Red Cell Distribution Width 18.7 % (11.5-14.5); White Blood Count 8.1 K/mm3 (4.5-10.0)
[2020-02-04 05:47] LABS: INR 1.8; Prothrombin Time 20.8 Seconds (11.1-14.7)
[2020-02-04 05:52] LABS: Alanine Aminotransferase 50 U/L (4-50); Albumin Level 3.8 g/dL (3.5-5.1); Alkaline Phosphatase 86 U/L (38-126); Anion Gap 11.4 mmol/L (7-16); Aspartate Amino Transferase 70 U/L (17-59); Bilirubin,Total 0.5 mg/dL (0.2-1.3); Blood Urea Nitrogen 13 mg/dL (9-20); Calcium 8.1 mg/dL (8.4-10.2); Carbon Dioxide 32 mmol/L (22-30); Chloride 98 mmol/L (98-107); Creatine Kinase 864 U/L (55-170); Estimated CRCL calculation 129 ml/min; Estimated Glomerular Filt Rate > 60; Glucose 147 mg/dL (75-110); Magnesium 2.2 mg/dL (1.6-2.3); Phosphorus 3.3 mg/dL (2.5-4.5); Potassium 4.4 mmol/L (3.4-5.0); Sodium 137 mmol/L (137-145)
[2020-02-04] MEDS: dilTIAZem HCL 30 MG TABLET PO ×4 (05:57→23:02)
[2020-02-04] MEDS: WARFARIN (*PBKC) 5 MG TABLET PO (09:17)
[2020-02-04] MEDS: ALPRAZolam 0.5 MG TABLET PO ×3 (09:17→20:10)
[2020-02-04] MEDS: METOPROLOL TARTRATE 50 MG TAB PO ×2 (09:18→20:09)
[2020-02-04] MEDS: ASPIRIN 81 MG CHEWABLE TABLET PO (09:18)
[2020-02-04] MEDS: ESCITALOPRAM OXALATE 5 MG TABLET PO (09:18)
[2020-02-04] MEDS: FUROSEMIDE INJ 40 MG/4 ML VIAL IV PUSH ×3 (09:19→20:10)
--- NOTE | 2020-02-04 15:59 | PM.IMPN ---
Progress Note: A&P Assessment and Plan (1) Atrial fibrillation with rapid ventricular response: Code(s): I48.91 - Unspecified atrial fibrillation Status: Acute Assessment and Plan: Patient has chronic AFib and noted to be in RVR on admission. Diltiazem drip started. He is on Metoprolol at home for rate control. Brother states patient very compliant with his medications. Able to be transitioned to oral diltiazem and lower dose Metoprolol added back. HR overall better. Change to Diltiazem CD and continue to advance Metoprolol as needed. (2) Rhabdomyolysis: Code(s): M62.82 - Rhabdomyolysis Status: Acute Assessment and Plan: Patient down for an extended period with elevated AST and 3+ blood in urine but no red cells [place]do. T[place] [address]70. Lasix stopped and IV fluids started. TCK today 864. Continue PT/OT. Patient refusing any imaging studies. UA not helpful given the hematuria from the Walker. Stop IV fluids. (3) Acute CHF (congestive heart failure): Qualifiers: Heart failure type: unspecified Qualified Code(s): I50.9 - Heart failure, unspecified Code(s): I50.9 - Heart failure, unspecified Status: Acute Assessment and Plan: CXR showing mild intersistial airspace disease. BNP 3310. Echo 02/01/20 showing EF 50-55% with diastolic dysfunction. Patient stared on IV Lasix on admission. Excellent UOP. Cr 1.4 but improved to 1.0. Patient probably fluid overloaded and Lasix has improved renal perfusion. Lasix was stopped and IV fluids started once rhabdomyolysis was recognized. TCK coming down so IV Lasix resumed on 02/02. IV fluid stopped this morning when TCK 864. Still appears edematous. Will advance IV Lasix and continue fluid restriction. (4) JESUS (acute kidney injury): Code(s): N17.9 - Acute kidney failure, unspecified Status: Acute Assessment and Plan: Likely secondary to rhabdomyolysis. Cr improved and stable despite the IV Lasix. Continue to monitor renal function. Monitor Cr closely (5) High anion gap metabolic acidosis: Code(s): E87.2 - Acidosis Status: Acute Assessment and Plan: Likely secondary to poor perfusion. Lactic acid normal. No urine ketones. Related to rhabdo? AG has closed. (6) Subtherapeutic international normalized ratio (INR): Code(s): R79.1 - Abnormal coagulation profile Status: Acute Assessment and Plan: INR was subtherapeutic at 1.9 on admission. He was started on therapeutic Lovenox to bridge. INR became therapeutic so Lovenox stopped. INR 1.8 today so extra dose of Coumadin given today. Continue warfarin. Continue daily INR. (7) Hyperthyroidism: Code(s): E05.90 - Thyrotoxicosis, unspecified without thyrotoxic crisis or storm Status: Acute Assessment and Plan: Patient with hyperthyroidism. TSH 29.5 with low FT4 at 0.12. Hyperthyroidism too well controlled. Methimazole on hold for now. Resume methimazole at lower dose. (8) Acute urinary retention: Code(s): R33.8 - Other retention of urine Status: Acute Assessment and Plan: Patient with urine retention so Walker placed. Patient demanding to have Walker removed per RN. Wakler removed and patient appears to be voidnig normally. Will monitor for recurrent retention. Will hold on Flomax at this time given his hx of soft BP and ongong diuresis. (9) Suspected 2019 novel coronavirus infection: Code(s): Z20.828 - Contact with and (suspected) exposure to other viral communicable diseases Status: Acute Assessment and Plan: COVID-19 negative. Isolation stopped. Subjective Date/time seen: 02/04/20 15:59 Interval history: 59yo male with AFib on Coumadin, CAD, CHF, s/p aortic valve repair here for increased generalized weakness and back pain. Patient complaining of back pain still. Denies CP. Feels better ove
[2020-02-04] MEDS: WARFARIN (*PBKC) 7.5 MG TABLET PO (18:09)
--- NOTE | 2020-02-04 22:20 | ADMGEN ---
This patient, John Peters, was admitted to 3 [facility] Surg Room 319-01. Patient/family oriented to hospital policies and general routines including ID bracelet, bed and alarms, visiting hours, pain management, procedures, bathroom and other care routines, personal items, smoking policy, room service/diet, and visiting hours. Valuables list has been completed. Information on how to activate the Rapid Response Team has been discussed. Patient/Family are encouraged to report perceived risks to care and to ask questions if they do not understand what they are told or what they should do.
[2020-02-05] VITALS (11 sets, daily range): BP systolic 123–127; BP diastolic 68–83; PULSE 91–126; RESP 16–18; TEMP 36.5–37.2; O2SAT 93–96
[2020-02-05] MEDS: ONDANSETRON INJ 4 MG/2 ML VIAL IV PUSH (01:40)
[2020-02-05] MEDS: FUROSEMIDE INJ 40 MG/4 ML VIAL IV PUSH ×3 (05:33→21:07)
[2020-02-05] MEDS: ALPRAZolam 0.5 MG TABLET PO ×3 (05:33→21:07)
[2020-02-05 06:36] LABS: Basophils Percent Auto 0.5 % (0.2-1.2); Eosinophils Absolute Auto 0.3 K/mm3 (0-0.3); Eosinophils Percent Auto 3.5 % (0-4.4); Hematocrit 36.8 % (42.0-52.0); Hemoglobin 10.7 g/dL (14.0-18.0); Immature Granulocyte Absolute 0.01 K/mm3 (0.00-0.031); Immature Granulocyte Percent A 0.1 % (0-0.5); Lymphocytes Absolute Auto 0.89 K/mm3 (0.9-3.2); Lymphocytes Percent Auto 10.3 % (18.3-44.2); Mean Corpuscular HGB Conc 29.1 g/dl (32-36); Mean Corpuscular Hemoglobin 25.4 pg (26-34); Mean Corpuscular Volume 87.2 fl (80-100); Mean Platelet Volume 9.7 fl (7.4-10.4); Monocytes Absolute Auto 0.9 K/mm3 (0.1-0.6); Monocytes Percent Auto 10.3 % (2.6-8.5); Neutrophils Absolute Auto 6.5 K/mm3 (1.3-6.7); Neutrophils Percent Auto 75.3 % (45.5-73.1); Platelet Count Result 175 k/mm3 (150-375); Red Blood Count 4.22 M/mm3 (4.6-6.20); White Blood Count 8.6 K/mm3 (4.5-10.0)
[2020-02-05 06:38] LABS: INR 2.3; Prothrombin Time 24.9 Seconds (11.1-14.7)
[2020-02-05 06:46] LABS: Alanine Aminotransferase 53 U/L (4-50); Alkaline Phosphatase 99 U/L (38-126); Anion Gap 11.7 mmol/L (7-16); Aspartate Amino Transferase 59 U/L (17-59); Bilirubin,Total 0.7 mg/dL (0.2-1.3); Blood Urea Nitrogen 15 mg/dL (9-20); Calcium 8.5 mg/dL (8.4-10.2); Carbon Dioxide 36 mmol/L (22-30); Chloride 94 mmol/L (98-107); Estimated CRCL calculation 112 ml/min; Estimated Glomerular Filt Rate > 60; Glucose 161 mg/dL (75-110); Magnesium 2.1 mg/dL (1.6-2.3); Phosphorus 3.3 mg/dL (2.5-4.5); Potassium 3.7 mmol/L (3.4-5.0); Sodium 138 mmol/L (137-145)
[2020-02-05] MEDS: methiMAzole 10 MG TAB PO (08:11)
[2020-02-05] MEDS: ASPIRIN 81 MG CHEWABLE TABLET PO (08:11)
[2020-02-05] MEDS: ESCITALOPRAM OXALATE 5 MG TABLET PO (08:11)
[2020-02-05] MEDS: METOPROLOL TARTRATE 50 MG TAB PO (09:32)
--- NOTE | 2020-02-05 15:04 | PM.IMPN ---
Progress Note: A&P Assessment and Plan (1) Atrial fibrillation with rapid ventricular response: Code(s): I48.91 - Unspecified atrial fibrillation Status: Acute Assessment and Plan: Patient has chronic AFib and noted to be in RVR on admission. Diltiazem drip started. He is on Metoprolol at home for rate control. Brother states patient very compliant with his medications. Able to be transitioned to oral diltiazem and lower dose Metoprolol added back. HR stil elevated at times. Change to Diltiazem CD and continue to advance medications now that BP more stable. (2) Rhabdomyolysis: Code(s): M62.82 - Rhabdomyolysis Status: Acute Assessment and Plan: Patient down for an extended period with elevated AST and 3+ blood in urine but no red cells consistent with [place]habdo. T[place] [address]696. Lasix stopped and IV fluids started. TCK yesterday 864 so IV fluids stopped. Continue PT/OT. Patient refusing any imaging studies. (3) Acute CHF (congestive heart failure): Qualifiers: Heart failure type: unspecified Qualified Code(s): I50.9 - Heart failure, unspecified Code(s): I50.9 - Heart failure, unspecified Status: Acute Assessment and Plan: CXR showing mild interstisial airspace disease. BNP 3310. Echo 02/01/20 showing EF 50-55% with diastolic dysfunction. Patient stared on IV Lasix on admission. Excellent UOP. Cr 1.4 but improved to 1.0. Patient probably fluid overloaded and Lasix has improved renal perfusion. Lasix was stopped and IV fluids started once rhabdomyolysis was recognized. TCK coming down so IV Lasix resumed on 02/02. IV fluid stopped 02/03 when TCK 864. Still appears edematous. Will continue IV Lasix at current dose given the good response (-2.7L) and continue fluid restriction. (4) JESUS (acute kidney injury): Code(s): N17.9 - Acute kidney failure, unspecified Status: Acute Assessment and Plan: Likely secondary to rhabdomyolysis. Cr improved and stable despite the IV Lasix. Continue to monitor renal function. Monitor Cr closely (5) High anion gap metabolic acidosis: Code(s): E87.2 - Acidosis Status: Acute Assessment and Plan: Likely secondary to poor perfusion. Lactic acid normal. No urine ketones. Related to rhabdo? AG has closed. (6) Subtherapeutic international normalized ratio (INR): Code(s): R79.1 - Abnormal coagulation profile Status: Acute Assessment and Plan: INR was subtherapeutic at 1.9 on admission. He was started on therapeutic Lovenox to bridge. INR became therapeutic so Lovenox stopped. INR 1.8 yesterday so extra dose of Coumadin given. INR therapeutic today. Continue warfarin. Continue daily INR. (7) Hyperthyroidism: Code(s): E05.90 - Thyrotoxicosis, unspecified without thyrotoxic crisis or storm Status: Acute Assessment and Plan: Patient with hyperthyroidism. TSH 29.5 with low FT4 at 0.12. Hyperthyroidism too well controlled. Methimazole wsa held and now resumed at lower dose. (8) Acute urinary retention: Code(s): R33.8 - Other retention of urine Status: Acute Assessment and Plan: Patient with urine retention so Walker placed. Patient demanding to have Walker removed per RN. Walker removed 02/03 and patient appears to be voiding normally. Will monitor for recurrent retention. Will hold on Flomax at this time given his hx of soft BP (9) Suspected 2019 novel coronavirus infection: Code(s): Z20.828 - Contact with and (suspected) exposure to other viral communicable diseases Status: Acute Assessment and Plan: COVID-19 negative. Isolation stopped. Subjective Date/time seen: 02/05/20 15:04 Interval history: 59yo male with AFib on Coumadin, CAD, CHF, s/p aortic valve repair here for increased generalized weakness and back pain. Feeling better. Walking with walker now. Still with edema
[2020-02-05] MEDS: WARFARIN (*PBKC) 5 MG TABLET PO (18:54)
[2020-02-05] MEDS: METOPROLOL TARTRATE TAB 25 MG, METOPROLOL TARTRATE TAB 50 MG 75 MG PO (20:25)
[2020-02-06] VITALS (7 sets, daily range): BP systolic 110–112; BP diastolic 72–79; PULSE 85–122; RESP 16; TEMP 36.6–36.8; O2SAT 92–93
[2020-02-06] MEDS: ALPRAZolam 0.5 MG TABLET PO ×2 (05:38→13:38)
[2020-02-06] MEDS: FUROSEMIDE INJ 40 MG/4 ML VIAL IV PUSH ×2 (05:38→13:38)
[2020-02-06 06:46] LABS: Blood Urea Nitrogen 27 mg/dL (9-20); Calcium 8.5 mg/dL (8.4-10.2); Carbon Dioxide > 40 mmol/L (22-30); Chloride 90 mmol/L (98-107); Estimated CRCL calculation 102 ml/min; Estimated Glomerular Filt Rate > 60; Glucose 183 mg/dL (75-110); Potassium 3.7 mmol/L (3.4-5.0); Sodium 137 mmol/L (137-145)
[2020-02-06] MEDS: ASPIRIN 81 MG CHEWABLE TABLET PO (09:15)
[2020-02-06] MEDS: METOPROLOL TARTRATE TAB 25 MG, METOPROLOL TARTRATE TAB 50 MG 75 MG PO (09:15)
[2020-02-06] MEDS: methiMAzole 10 MG TAB PO (09:15)
[2020-02-06] MEDS: ESCITALOPRAM OXALATE 5 MG TABLET PO (09:15)
[2020-02-06] MEDS: dilTIAZem HCL CD 180 MG CAP.ER.24H PO (09:17)
--- NOTE | 2020-02-06 12:58 | P.CDI_ITS ---
CDI Query Clarification Request - Acute CHF has been documented - Echo 02/01/20 showing EF 50-55% with diastolic dysfunction. Patient stared on IV Lasix on admission. has been documented Please further specify type of CHF: * Systolic * Diastolic * Both Systolic and Diastolic * Unable to determine
[2020-02-06] MEDS: WARFARIN (*PBKC) 7.5 MG TABLET PO (18:07)
--- NOTE | 2020-02-07 17:48 | PM.DS ---
DS: Admitting Diagnosis Admitting Diagnosis Admitting Diagnosis: Unspecified atrial fibrillation DS: Discharge Diagnosis Discharge Diagnosis (1) Atrial fibrillation with rapid ventricular response: Code(s): I48.91 - Unspecified atrial fibrillation Status: Acute Assessment and Plan: Patient has chronic AFib and noted to be in RVR on admission. Diltiazem drip started. He is on Metoprolol at home for rate control. Brother states patient very compliant with his medications. Able to be transitioned to oral diltiazem and lower dose Metoprolol added back. HR stil elevated at times. Changed to Diltiazem CD 180 and metoprolol tartrate 100 b.i.d. and ventricular rate consistently in the 80s or low 90s (2) Rhabdomyolysis: Code(s): M62.82 - Rhabdomyolysis Status: Acute Assessment and Plan: Patient down for an extended period with elevated AST and 3+ blood in urine but no red cells [place]do. T[place] [address]. Lasix stopped and IV fluids started. TCK decreased 864 2 days prior to discharge so IV fluids stopped. Continue PT/OT. Patient refusing any imaging studies. (3) Acute CHF (congestive heart failure): Qualifiers: Heart failure type: unspecified Qualified Code(s): I50.9 - Heart failure, unspecified Code(s): I50.9 - Heart failure, unspecified Status: Acute Assessment and Plan: CXR showing mild interstisial airspace disease. BNP 3310. Echo 02/01/20 showing EF 50-55% with diastolic dysfunction. Patient stared on IV Lasix on admission. Excellent UOP. Cr 1.4 but improved to 1.0. Patient probably fluid overloaded and Lasix has improved renal perfusion. Lasix was stopped and IV fluids started once rhabdomyolysis was recognized. TCK coming down so IV Lasix resumed on 02/02. IV fluid stopped 02/03 when TCK 864. . Will continue is Lasix 80 b.i.d. at discharge (4) JESUS (acute kidney injury): Code(s): N17.9 - Acute kidney failure, unspecified Status: Acute Assessment and Plan: Likely secondary to rhabdomyolysis. Cr improved 0.9 at discharge (5) High anion gap metabolic acidosis: Code(s): E87.2 - Acidosis Status: Acute Assessment and Plan: Likely secondary to poor perfusion. Lactic acid normal. No urine ketones. Related to rhabdo? AG closed. (6) Subtherapeutic international normalized ratio (INR): Code(s): R79.1 - Abnormal coagulation profile Status: Acute Assessment and Plan: INR was subtherapeutic at 1.9 on admission. He was started on therapeutic Lovenox to bridge. INR became therapeutic so Lovenox stopped. INR 1.8 yesterday so extra dose of Coumadin given. INR therapeutic 2.2 at discharge. Continue warfarin. (7) Hyperthyroidism: Code(s): E05.90 - Thyrotoxicosis, unspecified without thyrotoxic crisis or storm Status: Acute Assessment and Plan: Patient with hyperthyroidism. TSH 29.5 with low FT4 at 0.12. Hyperthyroidism too well controlled. Methimazole was held and now resumed at lower dose. of 10 mg daily instead of 20, T4 TSH in 5 weeks (8) Acute urinary retention: Code(s): R33.8 - Other retention of urine Status: Acute Assessment and Plan: Patient with urine retention so Walker placed. Patient demanding to have Walker removed per RN. Walker removed 02/03 and patient appears to be voiding normally. Will monitor for recurrent retention. Flomax continued on discharge DS: Summary Hospital Course Hospital Course: 59-year-old white male with chronic AFib found down at home and admitted with dehydration, acute kidney injury, and rhabdomyolysis. With hydration creatinine fell to 0.9 at discharge, CK fell, and AFib ventricular rate was controlled. TSH was elevated so methimazole was decreased to 10 mg daily and diltiazem 180 daily was added to his metoprolol 100 b.i.d. with good control of rate and blood pressure. Will fa
== END 2020-02-06 18:50 | disposition home health service (06) | DRG 309 ==
LOC: ANHED 20:44 → ANHIMU 02-01 21:08 → ANH3MEDSUR 02-08 15:08 → ANHICU 02-08 15:08 → ANHIMU 02-08 15:08
PROVIDERS: Internal Medicine; Admitting Provider Family Medicine; Emergency Provider Emergency Medicine; Visit Provider Internal Medicine
DX: I48.20 Chronic atrial fibrillation, unspecified (principal); N17.9 Acute kidney failure, unspecified; Z68.41 Body mass index [BMI] 40.0-44.9, adult; E87.2 Acidosis; M62.82 Rhabdomyolysis; I50.9 Heart failure, unspecified; I25.10 Atherosclerotic heart disease of native coronary artery without angina pectoris; E86.0 Dehydration; R33.8 Other retention of urine; E05.90 Thyrotoxicosis, unspecified without thyrotoxic crisis or storm; E66.01 Morbid (severe) obesity due to excess calories; R79.1 Abnormal coagulation profile; R79.89 Other specified abnormal findings of blood chemistry; D72.829 Elevated white blood cell count, unspecified; Z20.828 Contact with and (suspected) exposure to other viral communicable diseases; Z66 Do not resuscitate; Z79.01 Long term (current) use of anticoagulants; Z79.82 Long term (current) use of aspirin; Z79.84 Long term (current) use of oral hypoglycemic drugs; Z87.891 Personal history of nicotine dependence; Z91.19 Patient's noncompliance with other medical treatment and regimen; Z86.73 Personal history of transient ischemic attack (TIA), and cerebral infarction without residual deficits
CPT/HCPCS: 36415; 36600; 51701; 71045; 80048; 80053; 81001; 82550; 82805; 83605; 83735; 83880; 84100; 84439; 84443; 84484; 85025; 85610; 85730; 87040; 87635; 93005; 96374; 96375; 97110; 97116; 97161; 97165; 97530; 99285; A9270; C8929; C9803; J1650; J1940; J2405; J7030; Q9957; U0003

== ENCOUNTER 2020-02-08 15:01 | Emergency (ER) | payer MEDICARE, MEDICAID, SELFPAY ==
[2020-02-08] VITALS (16 sets, daily range): BP systolic 95–126; BP diastolic 67–96; PULSE 88–126; RESP 16–26; TEMP 36.6–37.2; O2SAT 85–100
--- NOTE | ~2020-02-08 | CT_ITS ---
EXAMINATION: CT brain wo con DATE: 02/08/2020 15:40 INDICATION: Altered mental status. TECHNIQUE: Computed tomography (CT) of the head was performed without intravenous contrast. The mA wa s adjusted according to patient size. Iterative reconstruction technique was employed. The dose-lengt h product was 1513.33 mGy-cm. COMPARISON: Head CT 12/23/2018 FINDINGS: Motion artifact is noted. Again seen is a 3.7 x 2.6 cm arachnoid cyst anterior to left temp oral lobe. There is a hyperdense subdural hematoma overlying right frontal lobe with maximum thicknes s of 5 mm. There is an old infarct involving left parietal lobe. There is no abnormal mass lesion. Th e ventricles are normal in size. The paranasal sinuses are clear. The mastoid air cells are normal. T he orbits are normal. IMPRESSION: 1. Small acute subdural hematoma overlying right frontal lobe. I called this result to Dr. Yu on 02/08/20 at 15:48. 2. 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 Reviewed, dictated and finalized at location A. IMPRESSION: 1. Small acute subdural hematoma overlying right frontal lobe. I called this re sult to Dr. Yu on 02/08/20 at 15:48. 2. 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
--- NOTE | ~2020-02-08 | XR_ITS ---
XR chest ET placement 02/08/2020 17:12 Indication: Intubation. Respiratory distress. Procedure: AP portable chest Comparison: Comparison to multiple prior studies sequentially, with oldest reviewed study dated 05/13. Findings: Status post median sternotomy for CABG interstitial edema. No pleural effusion. No pneumoth orax. Endotracheal tube tip 3.4 cm above the loraine. Impression: 1: Cardiomegaly with interstitial edema. Reviewed, dictated and finalized at location A. Impression: 1: Cardiomegaly with interstitial edema.
--- NOTE | 2020-02-08 14:58 | ED.GENADULT ---
HPI - General Adult General Chief complaint: Shortness of Breath/Dyspnea Stated complaint: Leg swelling, SOB Source: EMS Mode of arrival: EMS Limitations: altered mental status and clinical condition History of Present Illness HPI narrative: Patient is a 59-year-old male who presents for evaluation of low oxygen. Patient was assessed by home health today at home, patient's mother was also checking on him and found him to have increased work of breathing and increased confusion from baseline. At the time of EMS arrival, oxygen saturation was approximately 86 to 87% on room air, diminished breath sounds bilaterally with tachypnea. Patiently recently admitted to this hospital and discharged home. Patient currently is denying any pain, he is very difficult to obtain any history from and is basically unreliable. He is able to state that he has not been feeling well today. When asked about alcohol intoxication or drug use the patient denies. Additional history unable to be obtained. Related Data Home Medications Medication Instructions Recorded Confirmed aspirin 325 mg PO DAILY 09/14/19 01/31/20 albuterol sulfate 2 puff INHALATION Q4H PRN 01/31/20 01/31/20 hydrocodone-acetaminophen 1 tablet PO Q6H PRN 01/31/20 01/31/20 warfarin 5 mg PO QMWF 01/31/20 01/31/20 warfarin 7.5 mg PO QTUTHSASU 01/31/20 01/31/20 Allergies Allergy/AdvReac Type Severity Reaction Status Date / Time morphine AdvReac Unknown Increased Verified 02/08/20 15:26 HR Review of Systems Review of Systems: ROS unobtainable: Yes unobtainable due to mental status PMFSH Past Medical History Medical History CAD (coronary artery disease) CHF (congestive heart failure) Colon cancer screening Hx of migraines Surgical History Surgical History Hx of aortic valve repair Family History Family History Father Family history of cardiovascular disease Family history of malignant neoplasm of bone Mother Family history of malignant neoplasm Sibling Family history of cardiovascular disease Social History Social History Smoking packs per day: 1 Smoking cigarettes per day: 20.0 Years smoked: 30 Smoking pack-years: 30.00 Smoking status: Former smoker Second hand tobacco smoke exposure: No Smoking end date: 07/12/17 Alcohol intake: former Substance use: current Spiritual care concerns: No Exam Narrative: Exam Narrative: GENERAL: Awake, alert, conversant, confused HEAD: Normocephalic, atraumatic. EYES: 2+ PERRLA and EOMI. ENT: Nares clear, no rhinorrhea or epistaxis. Mucous membranes moist. NECK: Supple. CHEST: Tachypnea, use of abdominal accessory muscles to breathe, diminished breath sounds bilaterally, crackles greatest on the left HEART: Regular rate, sinus rhythm ABDOMEN:Non distended, non tender, ecchymosis to the lower abdomen EXTREMITIES: Normal range of motion. Bilateral lower extremity pitting edema to the knees, 2+ SKIN: Warm, dry, no rash. NEURO:No focal deficits. Alert and oriented x3. Able to name the President as well. GCS 14. Course Vital Signs Vital signs: Vital Signs Temperature 36.6 C 02/08/20 14:59 Pulse Rate 105 H 02/08/20 14:59 Respiratory Rate 18 02/08/20 14:59 Blood Pressure 118/82 02/08/20 14:59 Pulse Oximetry 85 L 02/08/20 14:59 Temperature 36.6 C 02/08/20 20:08 Pulse Rate 111 H 02/08/20 20:15 Respiratory Rate 16 02/08/20 20:08 Blood Pressure 103/79 02/08/20 20:08 Pulse Oximetry 100 02/08/20 20:15 Transfer Transfered to: [facility] Transportation: ALS Transfer rationale: Acute subdural hemorrhage Accepting physician: MD Mynor Procedures Intubation Intubation #1: Intubation Date: 02/08/20
[2020-02-08 15:20] LABS: Glucose Point of Care 139 (65-105)
--- NOTE | 2020-02-08 15:20 | ECG_ITS ---
Measurements Intervals [place] Rate: 97 P: AK: 0 QRS: 112 QRSD: 94 T: 70 QT: 363 QTc: 463 Interpretive Statements ATRIAL FIBRILLATION RIGHT AXIS DEVIATION BASELINE ARTIFACT- I, II, AVR, AVL, AVF, V1-V2, V4-V5 ABNORMAL ECG Electronically Signed On 02-08-2020 16:09:45 CDT by Charli Griffiths D.O.
[2020-02-08] MEDS: NALOXONE HCL INJ 2 MG/2 ML AMP IV PUSH (15:26)
[2020-02-08 15:45] LABS: Basophils Absolute Auto 0.1 K/mm3 (0.0-0.1); Basophils Percent Auto 0.7 % (0.2-1.2); Eosinophils Absolute Auto 0.3 K/mm3 (0-0.3); Eosinophils Percent Auto 3.7 % (0-4.4); Hematocrit 35.1 % (42.0-52.0); Hemoglobin 9.9 g/dL (14.0-18.0); Immature Granulocyte Absolute 0.04 K/mm3 (0.00-0.031); Immature Granulocyte Percent A 0.5 % (0-0.5); Lymphocytes Absolute Auto 1.01 K/mm3 (0.9-3.2); Lymphocytes Percent Auto 12.2 % (18.3-44.2); Mean Corpuscular HGB Conc 28.2 g/dl (32-36); Mean Corpuscular Hemoglobin 25.1 pg (26-34); Mean Corpuscular Volume 89.1 fl (80-100); Mean Platelet Volume 9.7 fl (7.4-10.4); Monocytes Absolute Auto 0.8 K/mm3 (0.1-0.6); Monocytes Percent Auto 9.9 % (2.6-8.5); Neutrophils Absolute Auto 6.1 K/mm3 (1.3-6.7); Platelet Count Result 200 k/mm3 (150-375); Red Blood Count 3.94 M/mm3 (4.6-6.20); Red Cell Distribution Width 19.7 % (11.5-14.5); White Blood Count 8.3 K/mm3 (4.5-10.0)
[2020-02-08 15:50] LABS: Acetaminophen < 10 ug/mL (10-30); Ammonia 20 umol/L (9-30); Ethanol < 10 mg/dL (<10); Prothrombin Time 38.3 Seconds (11.1-14.7); Salicylate < 1.0 mg/dL (2-20)
[2020-02-08 15:51] LABS: Alanine Aminotransferase 38 U/L (4-50); Albumin Level 4.1 g/dL (3.5-5.1); Alkaline Phosphatase 100 U/L (38-126); Aspartate Amino Transferase 25 U/L (17-59); Bilirubin,Total 0.5 mg/dL (0.2-1.3); Blood Urea Nitrogen 26 mg/dL (9-20); Calcium 8.4 mg/dL (8.4-10.2); Carbon Dioxide 36 mmol/L (22-30); Chloride 95 mmol/L (98-107); Estimated CRCL calculation 92 ml/min; Estimated Glomerular Filt Rate > 60; Glucose 136 mg/dL (75-110); Partial Thromboplastin Time 57.1 SECONDS (22.3-36.8); Sodium 140 mmol/L (137-145)
[2020-02-08 15:52] LABS: Lactic Acid Reflex 1.1 mmol/L (0.7-2.1)
--- NOTE | 2020-02-08 15:52 | PC.NURSE ---
Dr Yu speaking with patients brother at this time about patient care
[2020-02-08 16:02] LABS: Troponin I 0.017 ng/mL (0.000-0.034)
[2020-02-08 16:04] LABS: Anisocytosis 3+ (NORMAL); Hypochromasia 1+ (NORMAL); Platelet Estimate Adequate (Adequate)
[2020-02-08 16:08] LABS: Alveolar/Arterial O2 Gradient 185.9 mmHg; Base Excess ABG 9.9 mEq/l (+/-2.0); Fractional Inspired Oxygen 44 %; HCO3 ABG 36.3 mEq/l (22.0-26.0); Oxygen Saturation ABG 90.6 % (95.0-100.0); Oxyhemoglobin 88.5 % THb (90.0-100.0); PCO2 ABG 59.2 mmHg (35.0-45.0); PO2 ABG 60.3 mmHg (80.0-100.0); PO2 FiO2 Ratio Arterial Blood 1.37 %; Total Hemoglobin 11.2 g/dL (12.0-18.0); pH ABG 7.406 (7.350-7.450)
[2020-02-08 16:09] LABS: Device NASAL CANNULA; Modified Allen's Test Pass; Site Drawn LEFT RADIAL
[2020-02-08 16:21] LABS: NT Pro B Type Natriuretic Pept 4070 PG/ML (5-100); Thyroid Stimulating Hormone 0.787 uIU/mL (0.465-4.680)
--- NOTE | 2020-02-08 16:22 | PC.NURSE ---
Pt becoming more restless and diaphoretic. Heart lead not staying on patient due to sweat. placed on crash cart monitor
--- NOTE | 2020-02-08 16:30 | PC.NURSE ---
Pt put on a non rebeather to hyperventilate prior to intubation
--- NOTE | 2020-02-08 16:39 | PC.NURSE ---
Addendum entered by Rupa Xie RN 02/08/20 16:40: Dr at bedside Original Note: Pt at bedside to intubate at this time.
--- NOTE | 2020-02-08 16:46 | PC.NURSE ---
1646: 20 mg Etomidate, 100 mg Rocuronium given at this time
--- NOTE | 2020-02-08 16:48 | PC.NURSE ---
1648: Pt tube placed, 23 at the lip, good color change, equal bilateral breath sounds. Vent settings: 400, peep of 5, 100%, rate of 15
[2020-02-08] MEDS: PHYTONADIONE ADULT INJ 10 MG in DEXTROSE 5% IN WATER 50 ML 100 MG IVPB (17:13)
[2020-02-08] MEDS: HUMAN PROTHROMBIN COMPLEX(PCC) 3,500 UNITS in PREMIXIV 0 ML 504 UNITS IV CONT (17:24)
[2020-02-08 18:07] LABS: Add Urine Microscopic? NO; Appearance Urine Clear (Clear); Bilirubin Urine Negative (Negative); Blood Urine Negative (Negative); Color Urine Yellow (Yellow); Glucose Urine UA Negative (Negative); Ketones Urine Negative (Negative); Leukocyte Esterase Ur Negative LEU/UL (Negative); Nitrate Urine Negative (Negative); Protein Urine Negative (Negative); Specific Grav Ur 1.013 (1.001-1.035); Urobilinogen Urine Negative mg/dL (<2.0)
[2020-02-08 18:45] LABS: Amphetamine Screen Urine Negative (Negative); Barbiturate Screen Urine Negative (Negative); Benzodiazepines Screen Urine Positive (Negative); Cannabinoid Screen Urine Negative (Negative); Cocaine Screen Urine Negative (Negative); Methadone Screen Urine Negative (Negative); Opiate Screen Urine Positive (Negative); Phencyclidine Screen Urine Negative (Negative)
== END 2020-02-08 21:30 | disposition short-term general hospital (02) ==
PROVIDERS: Emergency Provider Emergency Medicine
DX: I62.00 Nontraumatic subdural hemorrhage, unspecified (principal); J96.90 Respiratory failure, unspecified, unspecified whether with hypoxia or hypercapnia; I25.10 Atherosclerotic heart disease of native coronary artery without angina pectoris; I50.9 Heart failure, unspecified; Z87.891 Personal history of nicotine dependence; Z79.82 Long term (current) use of aspirin; Z79.01 Long term (current) use of anticoagulants; Z79.899 Other long term (current) drug therapy
CPT/HCPCS: 31500; 36415; 36600; 70450; 80053; 80307; 81003; 82140; 82805; 82948; 83605; 83880; 84443; 84484; 85025; 85610; 85730; 87040; 93005; 96365; 96366; 96367; 96368; 99291; C9132; J2250; J2310; J3010; J3430

== ENCOUNTER 2020-02-28 14:12 | Inpatient (IN) | payer MEDICARE, MEDICAID, SELFPAY ==
[2020-02-28] VITALS (34 sets, daily range): BP systolic 104–132; BP diastolic 54–120; PULSE 89–124; RESP 13–22; TEMP 36.6–37.1; O2SAT 90–100; BMI 43.5
--- NOTE | ~2020-02-28 | XR_ITS ---
EXAMINATION: XR chest 1V portable INDICATION: Congestive heart failure TECHNIQUE: Portable AP chest at 0610 hours COMPARISON: 02/28/2020 FINDINGS: Diffuse interstitial and airspace opacities persist without significant change. There appea rs to be a small amount of fluid in the minor fissure. Cardiomegaly is noted. There is no pneumothora x. Median sternotomy wires are consistent with prior cardiac surgery. IMPRESSION: 1. Cardiomegaly with stable pulmonary edema. Reviewed, dictated and finalized at location A.
--- NOTE | ~2020-02-28 | XR_ITS ---
EXAMINATION: XR chest 1V portable DATE: 02/28/2020 16:20 INDICATION: Shortness of breath TECHNIQUE: frontal view of the chest was obtained. COMPARISON: Chest radiograph dated 02/08/2020 FINDINGS: Bilateral opacities with perihilar and basilar predominance. Suggestion of small left pleural effusio n with blunting at the right costophrenic angle. No pneumothorax or definitive left pleural effusion. Cardiomegaly. Median sternotomy wires and mediastinal surgical clips are seen, likely from prior cor onary artery bypass grafting. IMPRESSION: 1. Cardiomegaly with perihilar and basilar predominant opacities most likely congestive heart failure related mild pulmonary edema with differential including less likely atelectasis or pneumonia. 2. Likely small right pleural effusion. Reviewed, dictated and finalized at location A. IMPRESSION: 1. Cardiomegaly with perihilar and basilar predominant opacities most likely co ngestive heart failure related mild pulmonary edema with differential including less likely atelectasis or pneumonia. 2. Likely small right pleural effusion.
--- NOTE | 2020-02-28 14:23 | ECG_ITS ---
Measurements Intervals [place] Rate: 103 P: NM: 0 QRS: 96 QRSD: 96 T: 32 QT: 339 QTc: 445 Interpretive Statements ATRIAL FIBRILLATION WITH RAPID VENTRICULAR RESPONSE RIGHT AXIS DEVIATION NONSPECIFIC T-WAVE ABNORMALITY- ANTERIOR LEADS BASELINE WANDER- V4-V6 ABNORMAL ECG Electronically Signed On 02-28-2020 14:42:44 CDT by Charli Griffiths D.O.
[2020-02-28 14:29] LABS: Alveolar/Arterial O2 Gradient 519.4 mmHg; Base Excess ABG 4.2 mEq/l (+/-2.0); Carboxyhemoglobin 1.9 % THb (0-2.0); Fractional Inspired Oxygen 100 %; HCO3 ABG 28.6 mEq/l (22.0-26.0); Methemoglobin ABG 0.2 %THb (0-1.5); Oxygen Content ABG 12.8 %vol (16.0-22.0); Oxyhemoglobin 96.6 % THb (90.0-100.0); PCO2 ABG 42.4 mmHg (35.0-45.0); PO2 ABG 151.2 mmHg (80.0-100.0); PO2 FiO2 Ratio Arterial Blood 1.51 %; Reduced Hemoglobin 1.3 %THb (0-5.0); Total Hemoglobin 9.2 g/dL (12.0-18.0); pH ABG 7.447 (7.350-7.450)
[2020-02-28 14:30] LABS: Modified Allen's Test Pass; Site Drawn RIGHT RADIAL
[2020-02-28 14:31] LABS: Device OTHER DEVICE
--- NOTE | 2020-02-28 14:39 | ED.SOB ---
HPI - SOB/Dyspnea General Chief Complaint: Shortness of Breath/Dyspnea Stated Complaint: DIFFICULTY BREATHING Time Seen by Provider: 02/28/20 14:21 Source: patient and EMS Mode of arrival: EMS Limitations: no limitations History of Present Illness HPI Narrative: Patient presents via EMS from his home for low saturations. His home health nurse was there and could not get his saturations above 80. He has known congestive heart failure and COPD. He is on 3 L of oxygen at home routinely. He comes in via EMS with CPAP and he has 100% saturation. His blood gas showed 151 on the oxygenation. Patient said he feels much better since being on the CPAP. He said he has pain all over but particularly in his back and his legs. He has not been sick recently. He denies cough fever chills or sweats. He said his appetite is been decreased. MD elicited complaint: shortness of breath Pertinent past history: COPD and congestive heart failure Onset (ago): hour(s) Timing: constant Severity: severe Exacerbating factors: nothing Relieving factors: nothing Known history of: COPD and congestive heart failure Associated symptoms: denies other symptoms Treatment prior to arrival: oxygen and other (CPAP) Related Data Home oxygen amount: 3 liters Home Medications Medication Instructions Recorded Confirmed aspirin 325 mg PO DAILY 09/14/19 01/31/20 albuterol sulfate 2 puff INHALATION Q4H PRN 01/31/20 01/31/20 warfarin 5 mg PO QMWF 01/31/20 01/31/20 alprazolam 0.5 mg PO TID 02/28/20 simvastatin 40 mg PO DAILY 02/28/20 Allergies Allergy/AdvReac Type Severity Reaction Status Date / Time morphine AdvReac Unknown Increased Verified 02/20/20 13:15 HR Review of Systems Review of Systems: Narrative: CONSTITUTIONAL: Denies fever, chills, or sweats. ENT: Denies rhinorrhea, congestion, sore throat, or otalgia. CARDIOVASCULAR: Denies chest pain, palpitations, or edema. RESPIRATORY: Denies cough but does have dyspnea. GASTROINTESTINAL: Denies abdominal pain, nausea, vomiting, or diarrhea. GENITOURINARY: Denies dysuria or hematuria. SKIN: Denies rash or itching. MUSCULOSKELETAL: Denies back pain, joint pain, or myalgia. NEUROLOGIC: Denies headache, numbness, or weakness. PSYCHIATRIC: Denies anxiety or depression. All systems reviewed & are unremarkable except as noted in HPI and below PMFSH Past Medical History Medical History CAD (coronary artery disease) CHF (congestive heart failure) Colon cancer screening Hx of migraines Surgical History Surgical History Hx of aortic valve repair Social History Social History Smoking packs per day: 1 Smoking cigarettes per day: 20.0 Years smoked: 30 Smoking pack-years: 30.00 Smoking status: Former smoker Second hand tobacco smoke exposure: No Smoking end date: 07/12/17 Alcohol intake: former Substance use: current Gender identity (if verbalized by the patient): Male Spiritual care concerns: No Exam Narrative: Exam Narrative: GENERAL: Well-appearing, well-nourished, morbid obesity on CPAP. HEAD: Normocephalic, atraumatic. EYES: PERRLA and EOMI. ENT: Nares clear, no rhinorrhea or epistaxis. Mucous membranes moist. NECK: Supple. CHEST: Clear to auscultation. No respiratory distress. Shallow respirations. HEART: Regular rate and rhythm. No murmur heard. Normal peripheral pulses. ABDOMEN: Soft, nontender, nondistended, normal active bowel sounds. EXTREMITIES: Normal range of motion. Large amount of edema. SKIN: Warm, dry, no rash. Bruises on his lower abdomen(from Lovenox injections) NEURO: No focal deficits. Alert and oriented x3. PSYCH: Normal mood and affect. Course Reevaluation(s) Reevaluation #1: The brother was here and he is the power of commercial real estate attorney. Alton says that Zain takes too much of his narcotic and Xanax a
[2020-02-28 14:52] LABS: Basophils Percent Auto 0.5 % (0.2-1.2); Eosinophils Absolute Auto 0.1 K/mm3 (0-0.3); Eosinophils Percent Auto 1.4 % (0-4.4); Hematocrit 28.6 % (42.0-52.0); Hemoglobin 8.1 g/dL (14.0-18.0); Immature Granulocyte Absolute 0.03 K/mm3 (0.00-0.031); Immature Granulocyte Percent A 0.3 % (0-0.5); Lymphocytes Absolute Auto 0.67 K/mm3 (0.9-3.2); Lymphocytes Percent Auto 7.6 % (18.3-44.2); Mean Corpuscular HGB Conc 28.3 g/dl (32-36); Mean Corpuscular Hemoglobin 25.4 pg (26-34); Mean Corpuscular Volume 89.7 fl (80-100); Mean Platelet Volume 9.3 fl (7.4-10.4); Monocytes Absolute Auto 0.9 K/mm3 (0.1-0.6); Monocytes Percent Auto 10.4 % (2.6-8.5); Neutrophils Percent Auto 79.8 % (45.5-73.1); Platelet Count Result 159 k/mm3 (150-375); Red Blood Count 3.19 M/mm3 (4.6-6.20); White Blood Count 8.8 K/mm3 (4.5-10.0)
[2020-02-28 15:04] LABS: Alanine Aminotransferase 18 U/L (4-50); Albumin Level 3.7 g/dL (3.5-5.1); Alkaline Phosphatase 87 U/L (38-126); Anion Gap 5 mmol/L (8-16); Aspartate Amino Transferase 21 U/L (17-59); Bilirubin,Total 0.6 mg/dL (0.2-1.3); Blood Urea Nitrogen 19 mg/dL (9-20); Calcium 8.2 mg/dL (8.4-10.2); Carbon Dioxide 38 mmol/L (22-30); Chloride 94 mmol/L (98-107); Estimated CRCL calculation 134 ml/min; Estimated Glomerular Filt Rate > 60; Glucose 114 mg/dL (75-110); Potassium 4.2 mmol/L (3.4-5.0); Sodium 137 mmol/L (137-145)
[2020-02-28 15:11] LABS: Anisocytosis 2+ (NORMAL); Hypochromasia 1+ (NORMAL); Platelet Estimate Adequate (Adequate)
[2020-02-28 15:14] LABS: Add Urine Microscopic? YES; Appearance Urine Clear (Clear); Bilirubin Urine Negative (Negative); Blood Urine Negative (Negative); Color Urine Yellow (Yellow); Glucose Urine UA Negative (Negative); Ketones Urine Negative (Negative); Leukocyte Esterase Ur Negative LEU/UL (Negative); Nitrate Urine Negative (Negative); Protein Urine 1+ mg/dL (Negative); RBC Urine 0-2 /hpf (0-2); Specific Grav Ur 1.017 (1.001-1.035); Squamous Epithelial Cell Urine Rare /hpf (Few); Urobilinogen Urine Negative mg/dL (<2.0); WBC Urine 0-3 /hpf
[2020-02-28 15:15] LABS: NT Pro B Type Natriuretic Pept 1470 PG/ML (5-100); Troponin I < 0.012 ng/mL (0.000-0.034)
[2020-02-28] MEDS: FUROSEMIDE INJ 100 MG/10 ML VIAL 80 MG IV PUSH (16:26)
[2020-02-28] MEDS: methylPREDNISolone SOD SUCC 125 MG VIAL IV PUSH (16:26)
--- NOTE | 2020-02-28 17:41 | PC.NURSE ---
Pt. has 850 after 80mg of lasix IVP. EDP notified. EDP wants to hold off on 40mg of lasix for now via verbal order readback.
[2020-02-28 18:15] LABS: Troponin I < 0.012 ng/mL (0.000-0.034)
--- NOTE | 2020-02-28 19:18 | PM.IMHP ---
H&P: HPI History of Present Illness Date/Time: 02/28/20 19:18 Chief complaint: CHF and COPD ex Narrative: This is a 59 year old male with known Diastolic heart failure w/ an EF of 50-55% and chronic respiratory failure on 3L of oxygen at home who was recently admitted to our Hospitalist service in January for Afib w/ RVR, rhabdomyolysis and acute CHF returned to the hospital today with a complaint of worsening shortness of breath. Apparently the patient was just discharged from [facility] and since his discharge he has been at home and not doing much. He has had increased shortness of breath since his discharge home from [place] and today his home health nurse could not get his saturations above 80%. The patient was placed on Cpap by EMS and bought to the hospital. On my encounter with the patient kenzie he is currently on 6L of oxygen via [place] and saturating 97%. His ABG on the Cpap was unrermarkable. He complains of diffuse aches and pains which he tells me is chronic as well as generalized weakness. He admits that he has noticed increased lower extremity swelling and abdominal swelling. He has not been walking at all as he cannot tolerate even minimal activity due to his shortness of breath. Tonight he denies any recent fevers, chills, coughing, sore throat, headache, chest pain, palpitations, abdominal pain, nausea, vomiting, dysuria, or rectal bleeding. The patient is chronically on warfarin for Atrial fibrillation and [facility]. The patient has been treated with solumedrol and lasix IV in the ER [facility]. He last tested negative for Coronavirus about 1 week ago at [facility]. Review of Systems Review of Systems: All systems reviewed & are unremarkable except as noted in HPI and below PMFSH Past Medical History Medical History CAD (coronary artery disease) CHF (congestive heart failure) Colon cancer screening Hx of migraines Surgical History Surgical History Hx of aortic valve repair Family History Family History Father Family history of cardiovascular disease Family history of malignant neoplasm of bone Mother Family history of malignant neoplasm Sibling Family history of cardiovascular disease Social History Social History Smoking packs per day: 1 Smoking cigarettes per day: 20.0 Years smoked: 30 Smoking pack-years: 30.00 Smoking status: Former smoker Second hand tobacco smoke exposure: No Smoking end date: 07/12/17 Alcohol intake: never Substance use: never Gender identity (if verbalized by the patient): Male Spiritual care concerns: No Meds Home Medications and Allergies Home Medications Medication Instructions Recorded Confirmed Type aspirin 325 mg PO DAILY 09/14/19 02/28/20 History escitalopram oxalate 5 mg tablet 5 mg PO DAILY #90 tablet 10/12/19 02/28/20 Rx metformin 500 mg tablet 500 mg PO BID #180 tablet 11/24/19 02/28/20 Rx fluticasone propionate 50 2 spray NASAL DAILY PRN #18.2 ml 12/27/19 02/28/20 Rx mcg/actuation nasal spray,suspension furosemide 80 mg tablet 80 mg PO BID #180 tablet 12/27/19 02/28/20 Rx albuterol sulfate 2 puff INHALATION Q4H PRN 01/31/20 02/28/20 History warfarin 5 mg PO QMWF 01/31/20 02/28/20 History methimazole 10 mg PO DAILY #0 tablet 02/06/20 02/28/20 Rx metoprolol tartrate 100 mg tablet 150 mg PO Q12H #60 tablet 02/20/20 02/28/20 Rx hydrocodone 5 mg-acetaminophen 325 1 tablet PO Q6H PRN #120 tablet 02/26/20 02/28/20 Rx mg tablet potassium chloride 20 mEq See Rx Instructions .ROUTE 02/26/20 02/28/20 Rx tablet,extended release(part/cryst) .COMPLEX #180 tablet warfarin 5 mg tablet 7.5 mg PO QTUTHSASU #135 tablet 02/26/20 02/28/20 Rx alprazolam 0.5 mg PO TID 02/28/2002/27
--- NOTE | 2020-02-28 19:56 | PM.CNCAR ---
Assessment and Plan Assessment and plan (1) Acute diastolic heart failure: Code(s): I50.31 - Acute diastolic (congestive) heart failure Status: Acute (2) Acute and chronic respiratory failure ([id number]): Code(s): J96.20 - Acute and chronic respiratory failure, unspecified whether with hypoxia or hypercapnia Status: Acute Assessment and Plan: Pt appears to have exacerbation of diastolic dysfunction in setting of respiratory failure. Previous ECHO showed low normal LV systolic function (LVEF 50-55%) will repeat ECHO to re-evaluate LV function agree with diuretics monitor electrolytes and kidney function (3) Chronic obstructive pulmonary disease with (acute) exacerbation: Code(s): J44.1 - Chronic obstructive pulmonary disease with (acute) exacerbation Status: Acute Assessment and Plan: management per hospitalist (4) Non-compliance: Code(s): Z91.19 - Patient's noncompliance with other medical treatment and regimen Status: Acute (5) HERNAN (obstructive sleep apnea): Code(s): G47.33 - Obstructive sleep apnea (adult) (pediatric) Status: Acute (6) Persistent atrial fibrillation: Code(s): I48.19 - Other persistent atrial fibrillation Status: Chronic Assessment and Plan: HR relatively well controlled cont meds INR subtherapeutic goal 2-3 (7) Status post aorto-coronary artery bypass graft: Code(s): Z95.1 - Presence of aortocoronary bypass graft Status: Acute Assessment and Plan: appears stable cont meds Thank you for consult. Saurav estes. History of Present Illness History of Present Illness Consult date/time: 02/28/20 Mr. Peters is a pleasant 68 y/o WM with PMH of CAD s/p CABG, s/p MV repair, chronic AFIB, CVA, CRI, HL, HERNAN, COPD and diastolic dyfunction who presented today to ER of [facility] due to SOB. Pt is a poor historian, history is obtained predominantly from medical records and family. Pt does have SOB and LE edema for the last few weeks. States that his symptoms were getting worse which is the reason of presentation to ER. He denies CP, palpitations or syncopal episodes. No fever, chills or cough. According to notes he had about one week ago test for COVID which was negative. Pt does follow on regular basis with his sales engineer account manager at [facility] - Dr. Vasquez. He was recently dc from [facility] where he was admitted due to SOB. Previously was admitted to [facility] due to SOB in setting of AFIB with RVR. Pt does have long hx of smoking (> 40 yrs) as well as ETOH in the past. Pt was seen and examined while in ER, chart was reviewed, case d/w pt's family. Reason For Visit: CHF and COPD ex Review of Systems Review of Systems: All systems reviewed & are unremarkable except as noted in HPI and below Constitutional: Constitutional: Reports as per HPI Eyes: Eyes: Reports as per HPI ENT: Reports system reviewed and no additional complaints, except as documented and Reports as per HPI Cardiovascular: Cardiovascular: Reports as per HPI Respiratory: Respiratory: Reports as per HPI Gastrointestinal: Gastrointestinal: Reports as per HPI Genitourinary: Genitourinary: Reports as per HPI Musculoskeletal: Musculoskeletal: Reports as per HPI PMFSH Past Medical History Medical History CAD (coronary artery disease) CHF (congestive heart failure) Colon cancer screening Hx of migraines Surgical History Surgical History Hx of aortic valve repair Family History Family History Father Family history of cardiovascular disease Family history of malignant neoplasm of bone Mother Family history of malignant neoplasm Sibling Family history of cardiovascular disease Social History Social Hi
--- NOTE | 2020-02-28 21:23 | ADMGEN ---
This patient, John Peters, was admitted to IMU Room 212-01 at 2049. Patient/family oriented to hospital policies and general routines including ID bracelet, bed and alarms, visiting hours, pain management, procedures, bathroom and other care routines, personal items, smoking policy, room service/diet, and visiting hours. Valuables list has been completed. Information on how to activate the Rapid Response Team has been discussed. Patient/Family are encouraged to report perceived risks to care and to ask questions if they do not understand what they are told or what they should do.
[2020-02-28] MEDS: ALPRAZolam 0.5 MG TABLET PO (22:25)
[2020-02-28] MEDS: ENOXAPARIN 30 MG/0.3 ML SYRINGE SUB-Q (22:26)
[2020-02-28] MEDS: ENOXAPARIN 100 MG/ML SYRINGE SUB-Q (22:26)
[2020-02-28 23:02] LABS: Troponin I < 0.012 ng/mL (0.000-0.034)
[2020-02-29] VITALS (21 sets, daily range): BP systolic 99–129; BP diastolic 62–85; PULSE 93–115; RESP 15–22; TEMP 36.2–36.5; O2SAT 90–97
[2020-02-29 05:36] LABS: Hematocrit 26.6 % (42.0-52.0); Hemoglobin 7.7 g/dL (14.0-18.0); Immature Granulocyte Absolute 0.03 K/mm3 (0.00-0.031); Immature Granulocyte Percent A 0.4 % (0-0.5); Lymphocytes Percent Auto 5.8 % (18.3-44.2); Mean Corpuscular HGB Conc 28.9 g/dl (32-36); Mean Corpuscular Hemoglobin 25.6 pg (26-34); Mean Corpuscular Volume 88.4 fl (80-100); Mean Platelet Volume 9.6 fl (7.4-10.4); Monocytes Absolute Auto 0.2 K/mm3 (0.1-0.6); Monocytes Percent Auto 3.1 % (2.6-8.5); Neutrophils Absolute Auto 6.2 K/mm3 (1.3-6.7); Neutrophils Percent Auto 90.7 % (45.5-73.1); Platelet Count Result 163 k/mm3 (150-375); Red Blood Count 3.01 M/mm3 (4.6-6.20); Red Cell Distribution Width 18.5 % (11.5-14.5); White Blood Count 6.9 K/mm3 (4.5-10.0)
[2020-02-29 05:37] LABS: INR 2.7; Prothrombin Time 27.8 Seconds (11.1-14.7)
[2020-02-29 06:12] LABS: Hypochromasia 3+ (NORMAL)
[2020-02-29 06:13] LABS: Ovalocytes 1+ (NORMAL); Platelet Estimate Adequate (Adequate); Stomatocytes 1+ (NORMAL); Tear Drop Cells 1+ (NORMAL)
[2020-02-29 08:11] LABS: Anion Gap 4 mmol/L (8-16); Blood Urea Nitrogen 23 mg/dL (9-20); Calcium 7.9 mg/dL (8.4-10.2); Carbon Dioxide 33 mmol/L (22-30); Chloride 97 mmol/L (98-107); Estimated CRCL calculation 129 ml/min; Estimated Glomerular Filt Rate > 60; Glucose 154 mg/dL (75-110); Potassium 4.3 mmol/L (3.4-5.0); Sodium 134 mmol/L (137-145)
--- NOTE | 2020-02-29 08:40 | PM.PNCARD ---
Progress Note: A&P Assessment and Plan (1) Acute diastolic heart failure: Code(s): I50.31 - Acute diastolic (congestive) heart failure Status: Acute Assessment and Plan: 59 y/o with h/o CAD s/p CABG and mitral valve repair, Chronic A fib on coumadin, HERNAN, CVA, recent admission with JESUS/dehydration who presents now with shortness of breath and acute CHF exacerbation with A fib and RVR He received IV fluids during recent admission for JESUS. Now appears to have decompensated CHF. He required BiPAP on admission. He is doing better now. Will continue Lasix 80 mg BID. No accurate in/out as he is incontinent Monitor creatinine and electrolytes He had recent echocardiogram in January. EF 50-55% with mildly dilated LV. Mild MR with mitral ring prosthesis. No need to repeat 2D echocardiogram (2) Atrial fibrillation with rapid ventricular response: Code(s): I48.91 - Unspecified atrial fibrillation Status: Acute Assessment and Plan: He is on 150 BID of Metoprolol. HR ~100-120 Will add Diltiazem 120 mg daily. His INR is therapeutic. May d/c Lovenox. (3) Cerebrovascular accident (CVA): Qualifiers: CVA mechanism: unspecified Qualified Code(s): I63.9 - Cerebral infarction, unspecified Code(s): I63.9 - Cerebral infarction, unspecified Status: Acute (4) HERNAN (obstructive sleep apnea): Code(s): G47.33 - Obstructive sleep apnea (adult) (pediatric) Status: Acute Subjective Date/time seen: 02/29/20 08:40 Objective Data Vital Signs Vital Signs: Vital Signs - 24 hr 02/28/20 14:26 02/28/20 14:29 02/28/20 14:32 Temperature 37.1 C Pulse Rate 110 H 104 H Respiratory Rate 20 Blood Pressure 109/79 Pulse Oximetry 100 100 02/28/20 14:53 02/28/20 15:07 02/28/20 15:15 Temperature Pulse Rate 99 102 H 98 Respiratory Rate 17 18 17 Blood Pressure Pulse Oximetry 100 100 100 02/28/20 15:16 02/28/20 15:30 02/28/20 15:31 Temperature Pulse Rate 103 H 98 93 Respiratory Rate 16 16 17 Blood Pressure 108/66 108/74 Pulse Oximetry 100 100 100 02/28/20 15:48 02/28/20 16:03 02/28/20 16:15 Temperature Pulse Rate 98 89 105 H Respiratory Rate 18 15 20 Blood Pressure Pulse Oximetry 100 100 100 02/28/20 16:30 02/28/20 16:45 02/28/20 17:00 Temperature Pulse Rate 100 106 H Respiratory Rate 13 15 Blood Pressure Pulse Oximetry 100 100 100 02/28/20 17:07 02/28/20 17:15 02/28/20 17:16 Temperature Pulse Rate 104 H 104 H 93 Respiratory Rate 18 17 17 Blood Pressure 121/88 104/80 Pulse Oximetry 100 100 100 02/28/20 17:30 02/28/20 17:45 02/28/20 17:46 Temperature Pulse Rate 103 H 103 H 102 H Respiratory Rate 20 21 H 18 Blood Pressure 108/65 Pulse Oximetry 98 99 02/28/20 18:00 02/28/20 18:01 02/28/20 18:15 Temperature Pulse Rate 101 H 98 111 H Respiratory Rate 17 16 22 H Blood Pressure 107/76 Pulse Oximetry 94 96 90 02/28/20 18:17 02/28/20 18:30 02/28/20 18:31 Temperature Pulse Rate 124 H Respiratory Rate 17 Blood Pressure 132/120 H 113/88 Pulse Oximetry 95 96 02/28/20 18:45 02/28/20 18:46 02/28/20 19:40 Temperature Pulse Rate 108 H 104 H 107 H Respiratory Rate 16 14 16 Blood Pressure 123/83 123/89 Pulse Oximetry 96 96 100 02/28/20 20:29 02/28/20 20:50 02/28/20 22:00 Temperature 36.6 C Pulse Rate 112 H 113 H 117 H Respiratory Rate 18 20 Blood Pressure 111/54 L 125/75 Pulse Oximetry 98 96 02/28/20 23:30 02/29/20 00:00 02/29/20 00:10 Temperature 36.5 C Pulse Rate 110 H 107 H Respiratory Rate 14 18 Blood Pressure 104/65 Pulse Oximetry 93 95 92 02/29/20 02:00 02/29/20 02:21 02/29/20 04:00 Temperature Pulse Rate 98 113 H 106 H Respiratory Rate 15 16 Blood Pressure Pulse Oximetry 92 97 02/29/20 04:06 02/29/20 06:00 02/29/20 08:00 Temperature 36.2 C L 36.2 C L Pulse Rate 106 H 98 115 H Respiratory Rate 16 18 Blood Pressur
[2020-02-29 08:55] LABS: Glucose Point of Care 153 (65-105)
[2020-02-29] MEDS: ALPRAZolam 0.5 MG TABLET PO ×3 (10:03→21:05)
[2020-02-29] MEDS: SIMVASTATIN 20 MG TABLET 40 MG PO (10:04)
[2020-02-29] MEDS: ASPIRIN 325 MG TABLET PO (10:04)
[2020-02-29] MEDS: ESCITALOPRAM OXALATE 5 MG TABLET PO (10:04)
[2020-02-29] MEDS: FUROSEMIDE INJ 100 MG/10 ML VIAL 80 MG IV PUSH ×2 (10:04→16:59)
[2020-02-29] MEDS: metFORMIN HCL 500 MG TABLET PO ×2 (10:04→16:59)
[2020-02-29] MEDS: methiMAzole 10 MG TAB PO (10:04)
[2020-02-29] MEDS: METOPROLOL TARTRATE 50 MG TAB 100 MG PO ×2 (10:05→21:04)
[2020-02-29] MEDS: MAGNESIUM OXIDE 400 MG TABLET PO (10:05)
[2020-02-29] MEDS: SPIRONOLACTONE 12.5 MG TABLET PO (10:05)
--- NOTE | 2020-02-29 11:20 | PM.IMPN ---
Progress Note: A&P Assessment and Plan (1) Acute and chronic respiratory failure ([id number]): Code(s): J96.20 - Acute and chronic respiratory failure, unspecified whether with hypoxia or hypercapnia Status: Acute Assessment and Plan: CXR findings most likely related to CHF. Patient did well with BiPAP overnight. He states his mask is broken at home so will consult respiratory to try to obtain new mask for him. Currently on 6 L nasal cannula. Continue to wean down to his baseline 3 L nasal cannula. (2) Acute diastolic heart failure: Code(s): I50.31 - Acute diastolic (congestive) heart failure Status: Acute Assessment and Plan: On home Lasix at 80mg BID. This was changed to IV form. CXR as above. Trop negative x3. BNP 1470. Continue to follow Is and Os. Continue fluid restricted. Wean O2 as toelrated. Monitor renal function. (3) Persistent atrial fibrillation: Code(s): I48.19 - Other persistent atrial fibrillation Status: Chronic Assessment and Plan: HR mildly elevated. Was on Metoprolol 150mg BID on admission but this dropped to 100mf BID and Diltiazem added. INR therapeutic on admission. Continue warfarin. Daily INR. Agree with stopping Lovenox. (4) Chronic anemia: Code(s): D64.9 - Anemia, unspecified Status: Acute Assessment and Plan: Hemoglobin mostly in the 10 range in January. Hemoglobin has drifted down to 7.7 now today. No signs of acute blood loss. He is on Coumadin. Will check iron studes, etc. Monitor H/H, transfuse prn. (5) Type 2 diabetes mellitus without complication, without long-term current use of insulin: Code(s): E11.9 - Type 2 diabetes mellitus without complications Status: Chronic Assessment and Plan: The patient's blood glucose was reviewed on 02/29/20. Glucose remains well controlled. Continue AccuCheks covering with sliding scale. Hypoglycemia protocol available as needed. Continue current medications of metformin. (6) Hyperthyroidism: Code(s): E05.90 - Thyrotoxicosis, unspecified without thyrotoxic crisis or storm Status: Chronic Assessment and Plan: TSH 46 in January so methimazole dose decreased from 20mg to 10mg. TSH 5.3 on 02/15/20. Continue methimazole at lower dose of 10 mg. (7) Chronic obstructive pulmonary disease, unspecified: Qualifiers: COPD type: unspecified COPD Qualified Code(s): J44.9 - Chronic obstructive pulmonary disease, unspecified Code(s): J44.9 - Chronic obstructive pulmonary disease, unspecified Status: Chronic Assessment and Plan: Stable. A few rhonchi but no wheezing. Continue to moniotr. Subjective Date/time seen: 02/29/20 11:20 Interval history: 59yo male with CHF here for acute on chronic respiratory failure from CHF exacerbation and AFib/RVR. Kaila wears 3L NC at home. He does not use BiPAP at home since his machine has been broken. He does not know the name of the [employer] company. He states that his SOB improved here once they put the mask on. He slept well last night with using the mask. This morning, he feels 'much better'. Eating well. Minimal cough. Exam Narrative: Exam Narrative: AF 129/85 105 18 93% 5L Gen - NARD siting up in chair Chest - bibasilar inspiratory rhonchi, nml RR CV - IRR and mildly tachycardic; Tele showing AFIB with occas RVR Abd - Soft, NT/ND, Positive BS Ext - 2+ pitting and nonpitting pedal edema Psych - Nml mood and affect Skin - Warm and dry; small abd wound oozing blood Objective Data Vital Signs Vital Signs: Vital Signs - 24 hr 02/28/20 14:26 02/28/20 14:29 02/28/20 14:32 Temperature 98.8 F Pulse Rate 110 H 104 H Respiratory Rate 20 Blood Pressure 109/79 Pulse Oximetry 100 100 02/28/20 14:53 02/28/20 15:07 02/28/20 15:15 Temperature Pulse Rate 99 102 H 98 Respiratory Rate 17 18 17 Blood Pressure Pulse
[2020-02-29 13:10] LABS: Glucose Point of Care 189 (65-105)
[2020-02-29 16:26] LABS: Glucose Point of Care 174 (65-105)
[2020-02-29] MEDS: WARFARIN (*PBKC) 7.5 MG TABLET PO (16:59)
[2020-02-29 20:42] LABS: Glucose Point of Care 138 (65-105)
--- NOTE | 2020-02-29 21:16 | PCRCNOTE ---
APNEA LINK HELD UNTIL CLOSER TO DISCHARGE. PT WEARS 3LPM NC AT HOME AND IS ON 6LPM NC AT THIS TIME. DR YAN AND KENYA Cifuentes IS AWARE OF PLAN.
[2020-03-01] VITALS (16 sets, daily range): BP systolic 105–124; BP diastolic 69–77; PULSE 84–112; RESP 12–26; TEMP 35.5–36.7; O2SAT 90–97
[2020-03-01 04:47] LABS: Basophils Percent Auto 0.3 % (0.2-1.2); Eosinophils Absolute Auto 0.1 K/mm3 (0-0.3); Eosinophils Percent Auto 0.6 % (0-4.4); Hematocrit 29.5 % (42.0-52.0); Hemoglobin 8.2 g/dL (14.0-18.0); Immature Granulocyte Absolute 0.06 K/mm3 (0.00-0.031); Immature Granulocyte Percent A 0.5 % (0-0.5); Lymphocytes Percent Auto 9.1 % (18.3-44.2); Mean Corpuscular HGB Conc 27.8 g/dl (32-36); Mean Corpuscular Hemoglobin 25.4 pg (26-34); Mean Corpuscular Volume 91.3 fl (80-100); Mean Platelet Volume 9.4 fl (7.4-10.4); Monocytes Absolute Auto 1.3 K/mm3 (0.1-0.6); Monocytes Percent Auto 11.9 % (2.6-8.5); Neutrophils Absolute Auto 8.5 K/mm3 (1.3-6.7); Neutrophils Percent Auto 77.6 % (45.5-73.1); Platelet Count Result 172 k/mm3 (150-375); Red Blood Count 3.23 M/mm3 (4.6-6.20)
[2020-03-01 04:57] LABS: Prothrombin Time 21.9 Seconds (11.1-14.7)
[2020-03-01 05:07] LABS: Albumin Level 3.6 g/dL (3.5-5.1); Anion Gap 7 mmol/L (8-16); Blood Urea Nitrogen 25 mg/dL (9-20); Calcium 7.9 mg/dL (8.4-10.2); Carbon Dioxide 39 mmol/L (22-30); Chloride 92 mmol/L (98-107); Estimated CRCL calculation 129 ml/min; Estimated Glomerular Filt Rate > 60; Glucose 133 mg/dL (75-110); Magnesium 2.6 mg/dL (1.6-2.3); Potassium 4.1 mmol/L (3.4-5.0); Sodium 138 mmol/L (137-145)
[2020-03-01 05:41] LABS: Iron 213 ug/dL (49-181)
[2020-03-01 05:48] LABS: Anisocytosis 1+ (NORMAL); Hypochromasia 1+ (NORMAL); Ovalocytes 1+ (NORMAL); Platelet Estimate Adequate (Adequate)
[2020-03-01 05:49] LABS: Percent Iron Saturation 43 % (20-50)
[2020-03-01 06:08] LABS: Folic Acid 15.6 ng/mL (2.76->20)
--- NOTE | 2020-03-01 08:07 | PM.PNCARD ---
Progress Note: A&P Assessment and Plan (1) Acute diastolic heart failure: Code(s): I50.31 - Acute diastolic (congestive) heart failure Status: Acute Assessment and Plan: 59 y/o with h/o CAD s/p CABG and mitral valve repair, Chronic A fib on coumadin, HERNAN, CVA, recent admission with JESUS/dehydration who presents now with shortness of breath and acute CHF exacerbation with A fib and RVR He received IV fluids during recent admission for JESUS. Now appears to have decompensated CHF. Diuresing well. Creatinine stable. Will continue with IV lasix today. Will also give one time dose of Metolazone Monitor creatinine and electrolytes He had recent echocardiogram in January. EF 50-55% with mildly dilated LV. Mild MR with mitral ring prosthesis. No need to repeat 2D echocardiogram (2) Atrial fibrillation with rapid ventricular response: Code(s): I48.91 - Unspecified atrial fibrillation Status: Acute Assessment and Plan: Continue Metoprolol 100 BID. Added Diltiazem 120 daily. HR better overall ~90-100 Continue coumadin. Anemia noted. Need close follow up of INR (2.0 today) (3) Cerebrovascular accident (CVA): Qualifiers: CVA mechanism: unspecified Qualified Code(s): I63.9 - Cerebral infarction, unspecified Code(s): I63.9 - Cerebral infarction, unspecified Status: Acute (4) HERNAN (obstructive sleep apnea): Code(s): G47.33 - Obstructive sleep apnea (adult) (pediatric) Status: Acute Subjective Date/time seen: 03/01/20 08:07 He continues to feel better every passing day. Leg swelling going down. Still on 6 liters of oxygen. Denies chest pain Review of Systems Review of Systems: All systems reviewed & are unremarkable except as noted in HPI and below Constitutional: Constitutional: Reports as per HPI Eyes: Eyes: Reports as per HPI ENT: Reports system reviewed and no additional complaints, except as documented and Reports as per HPI Cardiovascular: Cardiovascular: Reports as per HPI Respiratory: Respiratory: Reports as per HPI Gastrointestinal: Gastrointestinal: Reports as per HPI Genitourinary: Genitourinary: Reports as per HPI Musculoskeletal: Musculoskeletal: Reports as per HPI Exam Const: General: alert and awake; No acute distress Nutritional Appearance: obese Other: Pt on CPAP HENMT: Head: normal to inspection and atraumatic Ears: hearing grossly normal bilaterally Face and sinus: normal facial exam Eyes: General: appearance normal, both eyes and all related structures Pupils: Equal, round and reactive pupils present EOM: EOMs intact bilaterally Neck: Neck: normal visual inspection and no JVD Chest: Chest palpation & inspection: normal inspection of the chest Resp: Effort & Inspection: normal respiratory effort and no respiratory distress Auscultation: diminished lung sounds Cardio: Jugular venous distension: no JVD Rate: regular rate Heart sounds: S1 normal heart sound present, S2 normal heart sound present and no murmurs GI: Inspection: normal to inspection Auscultation: normal bowel sounds Skin: General skin exam: normal color Neuro: Cranial nerves: Yes Equal, round and reactive pupils present Extrem: General: edema (2+ matthew LE edema) Objective Data Vital Signs Vital Signs: Vital Signs - 24 hr 02/29/20 09:46 02/29/20 10:00 02/29/20 10:05 Temperature Pulse Rate 108 H 105 H Respiratory Rate Blood Pressure Pulse Oximetry 93 02/29/20 12:00 02/29/20 14:00 02/29/20 16:00 Temperature 36.2 C L 36.2 C L Pulse Rate 93 94 97 Respiratory Rate 22 H 20 Blood Pressure 99/62 L 118/80 Pulse Oximetry 96 97 02/29/20 18:00 02/29/20 19:30 02/29/20 20:00 Temperature 36.5 C Pulse Rate 99 115 H 103 H Respiratory Rate 22 H 22 H Blood Pressure 120/74 Pulse Oximetry 94 94 02/29/20 20:45 02/29/20 21:04 02/29/20 22:00 Temperature Pulse Rate 104 H 103 H 106 H Respiratory Rate 20 Blood Pr
[2020-03-01] MEDS: ALPRAZolam 0.5 MG TABLET PO ×3 (08:32→16:28)
[2020-03-01] MEDS: FUROSEMIDE INJ 100 MG/10 ML VIAL 80 MG IV PUSH ×2 (08:33→16:28)
[2020-03-01] MEDS: ASPIRIN 81 MG CHEWABLE TABLET PO (08:34)
[2020-03-01] MEDS: MAGNESIUM OXIDE 400 MG TABLET PO (08:34)
[2020-03-01] MEDS: metFORMIN HCL 500 MG TABLET PO ×2 (08:34→16:29)
[2020-03-01] MEDS: SIMVASTATIN 20 MG TABLET 40 MG PO (08:34)
[2020-03-01] MEDS: methiMAzole 10 MG TAB PO (08:34)
[2020-03-01] MEDS: SPIRONOLACTONE 12.5 MG TABLET PO (08:34)
[2020-03-01] MEDS: METOPROLOL TARTRATE 50 MG TAB 100 MG PO ×2 (08:35→20:49)
[2020-03-01] MEDS: ESCITALOPRAM OXALATE 5 MG TABLET PO (08:35)
[2020-03-01 08:39] LABS: Glucose Point of Care 154 (65-105)
[2020-03-01] MEDS: metOLazone 5 MG TABLET PO (11:00)
[2020-03-01 12:15] LABS: Glucose Point of Care 125 (65-105)
--- NOTE | 2020-03-01 13:40 | PM.IMPN ---
Progress Note: A&P Assessment and Plan (1) Acute and chronic respiratory failure ([id number]): Code(s): J96.20 - Acute and chronic respiratory failure, unspecified whether with hypoxia or hypercapnia Status: Acute Assessment and Plan: CXR findings most likely related to CHF. Patient tolerating BiPAP at night. He states his mask is broken at home but come to discover that patient has not had a machine for many years. Currently on 5L nasal cannula. Continue to wean down to his baseline 3 L nasal cannula. Will need apnea link toward the end of his stay. Brother states patient uses Albuterol very frequently (200 dose container lasted 8 days per brother). Patient educated about the use of medications as prescribed. (2) Acute diastolic heart failure: Code(s): I50.31 - Acute diastolic (congestive) heart failure Status: Acute Assessment and Plan: On home Lasix at 80mg BID. This was changed to IV form. CXR as above. Trop negative x3. BNP 1470. Negative fluid balance. Continue to follow Is and Os. Continue fluid restricted. Metolazone once today. Wean O2 as tolerated. Monitor renal function. Discussed with Cardiology. (3) Persistent atrial fibrillation: Code(s): I48.19 - Other persistent atrial fibrillation Status: Chronic Assessment and Plan: HR better controlled now. Was on Metoprolol 150mg BID on admission but this was dropped to 100mg BID and Diltiazem added. INR remains therapeutic. Continue warfarin. Daily INR. (4) Chronic anemia: Code(s): D64.9 - Anemia, unspecified Status: Acute Assessment and Plan: Hemoglobin mostly in the 10 range in January. Hemoglobin has drifted down to 7-8 this admisison. No signs of acute blood loss. He is on Coumadin. Iron studies noted. Monitor H/H, transfuse prn. (5) Type 2 diabetes mellitus without complication, without long-term current use of insulin: Code(s): E11.9 - Type 2 diabetes mellitus without complications Status: Chronic Assessment and Plan: The patient's blood glucose was reviewed on 03/01. Glucose remains well controlled. Continue AccuCheks covering with sliding scale. Hypoglycemia protocol available as needed. Continue metformin. (6) Hyperthyroidism: Code(s): E05.90 - Thyrotoxicosis, unspecified without thyrotoxic crisis or storm Status: Chronic Assessment and Plan: TSH 46 in January so methimazole dose decreased from 20mg to 10mg. TSH 5.3 on 02/15/20. Continue methimazole at lower dose of 10 mg. (7) Chronic obstructive pulmonary disease, unspecified: Qualifiers: COPD type: unspecified COPD Qualified Code(s): J44.9 - Chronic obstructive pulmonary disease, unspecified Code(s): J44.9 - Chronic obstructive pulmonary disease, unspecified Status: Chronic Assessment and Plan: Stable. A few rhonchi but no wheezing. Has productive cough but no fever. WBC slightly elevated. Continue to monitor. Subjective Date/time seen: 03/01/20 13:40 Interval history: 59yo male with CHF here for acute on chronic respiratory failure from CHF exacerbation and AFib/RVR. Patient wears 3L NC at home. He does not use BiPAP at home. Patient slept well last night. He did wear the mask last night. Eating normally. Back pain much improved today. Good urine output. Denies chest pain. He states the legs are less edematous today. Is having cough productive of brownish sputum. brother is in the room and he was updated with patient permission. Exam Narrative: Exam Narrative: AF 112/69 108 20 95% 5L Gen - NARD sitting up at the side of the bed Chest - Bibasilar inspiratory crackles. Normal respiratory rate. CV - Irregularly irregular. S1-S2. Telemetry showing atrial fibrillation with mostly controlled rate Abd - Soft, NT/ND, Positive BS Ext - 2+ pitting and nonpitting pedal edema Psych - Nml mood and affect Skin
[2020-03-01] MEDS: WARFARIN (*PBKC) 5 MG TABLET PO (16:29)
[2020-03-01 16:50] LABS: Glucose Point of Care 135 (65-105)
--- NOTE | 2020-03-01 18:10 | PC.NURSE ---
Patient received from IMU at 1800 03/01/20. Patient oriented to the room.
--- NOTE | 2020-03-01 18:31 | PC.NURSE ---
This patient, John Peters, was transferred to [facility] on 03/01/20 at 1754. Personal belongings sent with patient. Belongings list checked and signed with receiving. Report given to KENYA Mai. Appropriate documentation sent with patient.
[2020-03-01 21:11] LABS: Glucose Point of Care 164 (65-105)
[2020-03-02] VITALS (15 sets, daily range): BP systolic 104–116; BP diastolic 66–73; PULSE 86–119; RESP 16–20; TEMP 36–36.5; O2SAT 91–95
[2020-03-02 05:41] LABS: Hematocrit 28.3 % (42.0-52.0); Hemoglobin 8.1 g/dL (14.0-18.0); Mean Corpuscular HGB Conc 28.6 g/dl (32-36); Mean Corpuscular Hemoglobin 26.2 pg (26-34); Mean Corpuscular Volume 91.6 fl (80-100); Mean Platelet Volume 9.6 fl (7.4-10.4); Platelet Count Result 191 k/mm3 (150-375); Red Blood Count 3.09 M/mm3 (4.6-6.20); Red Cell Distribution Width 19.3 % (11.5-14.5); White Blood Count 9.4 K/mm3 (4.5-10.0)
[2020-03-02 05:52] LABS: INR 2.2; Prothrombin Time 23.9 Seconds (11.1-14.7)
[2020-03-02 05:56] LABS: Potassium 3.4 mmol/L (3.4-5.0)
[2020-03-02 05:58] LABS: Anion Gap 10.99999 mmol/L (8-16); Blood Urea Nitrogen 23 mg/dL (9-20); Calcium 8.2 mg/dL (8.4-10.2); Carbon Dioxide > 40 mmol/L (22-30); Chloride 85 mmol/L (98-107); Estimated CRCL calculation 103 ml/min; Estimated Glomerular Filt Rate > 60; Glucose 119 mg/dL (75-110); Sodium 136 mmol/L (137-145)
[2020-03-02] MEDS: POTASSIUM CHLORIDE 20 MEQ TABLET 40 MEQ PO (08:03)
[2020-03-02] MEDS: METOPROLOL TARTRATE 50 MG TAB 100 MG PO ×2 (08:03→20:32)
[2020-03-02] MEDS: ALPRAZolam 0.5 MG TABLET PO ×3 (08:03→16:23)
[2020-03-02] MEDS: MAGNESIUM OXIDE 400 MG TABLET PO (08:03)
[2020-03-02] MEDS: SPIRONOLACTONE 12.5 MG TABLET PO (08:04)
[2020-03-02] MEDS: ASPIRIN 81 MG CHEWABLE TABLET PO (08:04)
[2020-03-02] MEDS: ESCITALOPRAM OXALATE 5 MG TABLET PO (08:04)
[2020-03-02] MEDS: SIMVASTATIN 20 MG TABLET 40 MG PO (08:04)
[2020-03-02] MEDS: metFORMIN HCL 500 MG TABLET PO ×2 (08:05→16:23)
[2020-03-02] MEDS: FUROSEMIDE INJ 100 MG/10 ML VIAL 80 MG IV PUSH ×2 (08:05→16:24)
[2020-03-02] MEDS: methiMAzole 10 MG TAB PO (08:05)
[2020-03-02 09:27] LABS: Glucose Point of Care 128 (65-105)
[2020-03-02 12:52] LABS: Glucose Point of Care 130 (65-105)
--- NOTE | 2020-03-02 14:06 | PM.PNCARD ---
Progress Note: A&P Assessment and Plan (1) Acute diastolic heart failure: Code(s): I50.31 - Acute diastolic (congestive) heart failure Status: Acute Assessment and Plan: 59 y/o with h/o CAD s/p CABG and mitral valve repair, Chronic A fib on coumadin, HERNAN, CVA, recent admission with JESUS/dehydration who presents now with shortness of breath and acute CHF exacerbation with A fib and RVR Diuresing well. Net negative 2 liters over the last 24 hours Creatinine stable. Will continue with IV lasix today. Will also give one time dose of Metolazone Monitor creatinine with effective diurses Need to replace K Will continue with IV lasix and will give another dose of Metolazone today He had recent echocardiogram in January. EF 50-55% with mildly dilated LV. Mild MR with mitral ring prosthesis. No need to repeat 2D echocardiogram (2) Atrial fibrillation with rapid ventricular response: Code(s): I48.91 - Unspecified atrial fibrillation Status: Acute Assessment and Plan: Continue Metoprolol 100 BID. Added Diltiazem 120 daily. HR better overall ~90-100 Continue coumadin. Anemia noted. Need close follow up of INR (3) HERNAN (obstructive sleep apnea): Code(s): G47.33 - Obstructive sleep apnea (adult) (pediatric) Status: Acute Assessment and Plan: Continue CPAP QHS Subjective Date/time seen: 03/02/20 14:06 He continues to feel better. Leg edema is improving. Still with some shortness of breath but that is also improving Review of Systems Review of Systems: All systems reviewed & are unremarkable except as noted in HPI and below Constitutional: Constitutional: Reports as per HPI Eyes: Eyes: Reports as per HPI ENT: Reports system reviewed and no additional complaints, except as documented and Reports as per HPI Cardiovascular: Cardiovascular: Reports as per HPI Respiratory: Respiratory: Reports as per HPI Gastrointestinal: Gastrointestinal: Reports as per HPI Genitourinary: Genitourinary: Reports as per HPI Musculoskeletal: Musculoskeletal: Reports as per HPI Exam Const: General: alert and awake; No acute distress Nutritional Appearance: obese Other: Pt on CPAP HENMT: Head: normal to inspection and atraumatic Ears: hearing grossly normal bilaterally Face and sinus: normal facial exam Eyes: General: appearance normal, both eyes and all related structures Pupils: Equal, round and reactive pupils present EOM: EOMs intact bilaterally Neck: Neck: normal visual inspection and no JVD Chest: Chest palpation & inspection: normal inspection of the chest Resp: Effort & Inspection: normal respiratory effort and no respiratory distress Auscultation: diminished lung sounds Cardio: Jugular venous distension: no JVD Rate: regular rate Heart sounds: S1 normal heart sound present, S2 normal heart sound present and no murmurs GI: Inspection: normal to inspection Auscultation: normal bowel sounds Skin: General skin exam: normal color Neuro: Cranial nerves: Yes Equal, round and reactive pupils present Extrem: General: edema (2+ matthew LE edema) Objective Data Vital Signs Vital Signs: Vital Signs - 24 hr 03/01/20 16:00 03/01/20 17:46 03/01/20 20:00 Temperature 36.2 C L 36.7 C Pulse Rate 104 H 101 H 84 Respiratory Rate 18 18 18 Blood Pressure 119/71 105/74 Pulse Oximetry 92 96 96 03/01/20 20:49 03/01/20 21:22 03/02/20 00:00 Temperature 36.6 C Pulse Rate 84 99 98 Respiratory Rate 18 Blood Pressure 111/76 Pulse Oximetry 95 03/02/20 01:32 03/02/20 02:02 03/02/20 04:00 Temperature 36.3 C L Pulse Rate 89 86 100 Respiratory Rate 20 18 Blood Pressure 113/73 Pulse Oximetry 95 94 03/02/20 06:00 03/02/20 08:00 03/02/20 08:03 Temperature 36.0 C L Pulse Rate 102 H 101 H 96 Respiratory Rate 16 Blood Pressure 116/68 Pulse Oximetry 92 03/02/20 10:00 03/02/20 10:40 03/02/20 12:00 Temperature 36.3 C L Pulse Rate 9
[2020-03-02] MEDS: WARFARIN (*PBKC) 7.5 MG TABLET PO (16:23)
[2020-03-02 16:45] LABS: Glucose Point of Care 160 (65-105)
--- NOTE | 2020-03-02 18:12 | PM.IMPN ---
Progress Note: A&P Assessment and Plan (1) Acute and chronic respiratory failure ([id number]): Code(s): J96.20 - Acute and chronic respiratory failure, unspecified whether with hypoxia or hypercapnia Status: Acute Assessment and Plan: CXR findings most likely related to CHF. Patient tolerating BiPAP at night. He has not had a CPAP machine for many years. Currently on 6L nasal cannula despite the good diuresis. Continue to wean down to his baseline 3 L nasal cannula. Will need apnea link toward the end of his stay. (2) Acute diastolic heart failure: Code(s): I50.31 - Acute diastolic (congestive) heart failure Status: Acute Assessment and Plan: On home Lasix at 80mg BID. This was changed to IV form. CXR as above. Trop negative x3. BNP 1470. Negative fluid balance with good UOP. Continue to follow Is and Os. Continue fluid restricted. Wean O2 as tolerated. Monitor renal function. Repeat CXR in the morning. (3) Persistent atrial fibrillation: Code(s): I48.19 - Other persistent atrial fibrillation Status: Chronic Assessment and Plan: HR better controlled now. Was on Metoprolol 150mg BID on admission but this was dropped to 100mg BID and Diltiazem added. INR remains therapeutic. Continue warfarin. Daily INR. Change Zocor to Lipitor due to the addition of DIltiazem (4) Chronic anemia: Code(s): D64.9 - Anemia, unspecified Status: Acute Assessment and Plan: Hemoglobin mostly in the 10 range in January. Hemoglobin has drifted down to 7-8 this admission. No signs of acute blood loss. He is on Coumadin. Iron studies noted. Monitor H/H, transfuse prn. (5) Type 2 diabetes mellitus without complication, without long-term current use of insulin: Code(s): E11.9 - Type 2 diabetes mellitus without complications Status: Chronic Assessment and Plan: The patient's blood glucose was reviewed on 03/02. Glucose remains well controlled. Continue AccuCheks covering with sliding scale. Hypoglycemia protocol available as needed. Continue metformin. (6) Hyperthyroidism: Code(s): E05.90 - Thyrotoxicosis, unspecified without thyrotoxic crisis or storm Status: Chronic Assessment and Plan: TSH 46 in January so methimazole dose decreased from 20mg to 10mg. TSH 5.3 on 02/15/20. Continue methimazole at lower dose of 10 mg. (7) Chronic obstructive pulmonary disease, unspecified: Qualifiers: COPD type: unspecified COPD Qualified Code(s): J44.9 - Chronic obstructive pulmonary disease, unspecified Code(s): J44.9 - Chronic obstructive pulmonary disease, unspecified Status: Chronic Assessment and Plan: Stable. No wheezing. WBC slightly elevated intially but normal now. Continue to monitor. Repeat CXR in the morning. (8) DVT prophylaxis: Code(s): Z29.9 - Encounter for prophylactic measures, unspecified Status: Acute Assessment and Plan: On Coumadin. INR therapeutic Subjective Date/time seen: 03/02/20 18:12 Interval history: 59yo male with CHF here for acute on chronic respiratory failure from CHF exacerbation and AFib/RVR. Patient wears 3L NC at home. He does not use BiPAP at home. Patient feels well today. Leg pain persistent but improve today. Good UOP with diuretics. No CP. Eating well. Exam Narrative: Exam Narrative: AF 97.5 104/67 102 20 92% 6L Gen - NARD Chest - bibasilar crackles R>L CV - Irregularly irregular. S1-S2. Abd - Soft, NT/ND, Positive BS Ext - 2+ pitting and nonpitting pedal edema Psych - Nml mood and affect; in good spirits Skin - Warm and dry Objective Data Vital Signs Vital Signs: Vital Signs - 24 hr 03/01/20 20:00 03/01/20 20:49 03/01/20 21:22 Temperature 97.9 F Pulse Rate 84 84 99 Respiratory Rate 18 18 Blood Pressure 111/76 Pulse Oximetry 96 95 03/02/20 00:00 03/02/20 01:32 03/02/20 02
[2020-03-02 21:35] LABS: Glucose Point of Care 152 (65-105)
[2020-03-03] VITALS (15 sets, daily range): BP systolic 104–121; BP diastolic 62–78; PULSE 86–116; RESP 16–20; TEMP 36.3–36.9; O2SAT 87–97
[2020-03-03 07:54] LABS: Hematocrit 26.5 % (42.0-52.0); Hemoglobin 7.5 g/dL (14.0-18.0); Mean Corpuscular HGB Conc 28.3 g/dl (32-36); Mean Corpuscular Hemoglobin 25.8 pg (26-34); Mean Corpuscular Volume 91.1 fl (80-100); Mean Platelet Volume 9.5 fl (7.4-10.4); Platelet Count Result 155 k/mm3 (150-375); Red Blood Count 2.91 M/mm3 (4.6-6.20); Red Cell Distribution Width 19.4 % (11.5-14.5); White Blood Count 8.7 K/mm3 (4.5-10.0)
[2020-03-03 07:59] LABS: INR 2.1; Prothrombin Time 23.1 Seconds (11.1-14.7)
[2020-03-03 08:01] LABS: Glucose Point of Care 140 (65-105)
[2020-03-03 08:10] LABS: Albumin Level 3.6 g/dL (3.5-5.1); Anion Gap 12.99999 mmol/L (8-16); Blood Urea Nitrogen 24 mg/dL (9-20); Calcium 8.4 mg/dL (8.4-10.2); Carbon Dioxide > 40 mmol/L (22-30); Chloride 82 mmol/L (98-107); Estimated CRCL calculation 115 ml/min; Estimated Glomerular Filt Rate > 60; Glucose 131 mg/dL (75-110); Magnesium 2.3 mg/dL (1.6-2.3); Phosphorus 3.9 mg/dL (2.5-4.5); Potassium 3.4 mmol/L (3.4-5.0); Sodium 135 mmol/L (137-145)
[2020-03-03] MEDS: MAGNESIUM OXIDE 400 MG TABLET PO (09:57)
[2020-03-03] MEDS: METOPROLOL TARTRATE 50 MG TAB 100 MG PO ×2 (09:57→20:29)
[2020-03-03] MEDS: metFORMIN HCL 500 MG TABLET PO ×2 (09:58→16:39)
[2020-03-03] MEDS: methiMAzole 10 MG TAB PO (09:58)
[2020-03-03] MEDS: ASPIRIN 81 MG CHEWABLE TABLET PO (09:58)
[2020-03-03] MEDS: SPIRONOLACTONE 12.5 MG TABLET PO (09:58)
[2020-03-03] MEDS: FUROSEMIDE INJ 100 MG/10 ML VIAL 80 MG IV PUSH (09:58)
[2020-03-03] MEDS: ATORVASTATIN 20 MG TABLET PO (09:58)
[2020-03-03] MEDS: ESCITALOPRAM OXALATE 5 MG TABLET PO (09:59)
[2020-03-03] MEDS: ALPRAZolam 0.5 MG TABLET PO ×3 (10:02→16:39)
[2020-03-03 11:59] LABS: Glucose Point of Care 129 (65-105)
--- NOTE | 2020-03-03 13:30 | PM.PNCARD ---
Progress Note: A&P Assessment and Plan (1) Acute diastolic heart failure: Code(s): I50.31 - Acute diastolic (congestive) heart failure Status: Acute Assessment and Plan: 59 y/o with h/o CAD s/p CABG and mitral valve repair, Chronic A fib on coumadin, HERNAN, CVA, recent admission with JESUS/dehydration who presents now with shortness of breath and acute CHF exacerbation with A fib and RVR Urine out put slowed down. Creatinine remains stable. Will continue with IV lasix 80 mg BID Will also give one time dose of Metolazone (did not received yesterday) Monitor creatinine Need to replace K He had recent echocardiogram in January. EF 50-55% with mildly dilated LV. Mild MR with mitral ring prosthesis. (2) Atrial fibrillation with rapid ventricular response: Code(s): I48.91 - Unspecified atrial fibrillation Status: Acute Assessment and Plan: Continue Metoprolol 100 BID. Added Diltiazem 120 daily. HR better overall ~90-100 Continue coumadin. Anemia noted. Need close follow up of INR (3) HERNAN (obstructive sleep apnea): Code(s): G47.33 - Obstructive sleep apnea (adult) (pediatric) Status: Acute Assessment and Plan: Continue CPAP QHS Subjective Date/time seen: 03/03/20 13:30 No overnight events. Continues to feel better every passing day. Not quite back to normal though Review of Systems Review of Systems: All systems reviewed & are unremarkable except as noted in HPI and below Constitutional: Constitutional: Reports as per HPI Eyes: Eyes: Reports as per HPI ENT: Reports system reviewed and no additional complaints, except as documented and Reports as per HPI Cardiovascular: Cardiovascular: Reports as per HPI Respiratory: Respiratory: Reports as per HPI Gastrointestinal: Gastrointestinal: Reports as per HPI Genitourinary: Genitourinary: Reports as per HPI Musculoskeletal: Musculoskeletal: Reports as per HPI Exam Const: General: alert and awake; No acute distress Nutritional Appearance: obese Other: Pt on CPAP HENMT: Head: normal to inspection and atraumatic Ears: hearing grossly normal bilaterally Face and sinus: normal facial exam Eyes: General: appearance normal, both eyes and all related structures Pupils: Equal, round and reactive pupils present EOM: EOMs intact bilaterally Neck: Neck: normal visual inspection and no JVD Chest: Chest palpation & inspection: normal inspection of the chest Resp: Effort & Inspection: normal respiratory effort and no respiratory distress Auscultation: diminished lung sounds Cardio: Jugular venous distension: no JVD Rate: regular rate Heart sounds: S1 normal heart sound present, S2 normal heart sound present and no murmurs GI: Inspection: normal to inspection Auscultation: normal bowel sounds Skin: General skin exam: normal color Neuro: Cranial nerves: Yes Equal, round and reactive pupils present Extrem: General: edema (2+ matthew LE edema) Objective Data Vital Signs Vital Signs: Vital Signs - 24 hr 03/02/20 14:00 03/02/20 16:00 03/02/20 20:00 Temperature 36.4 C L Pulse Rate 90 102 H 103 H Respiratory Rate 20 Blood Pressure 104/67 Pulse Oximetry 92 03/02/20 20:32 03/02/20 22:00 03/03/20 00:00 Temperature 36.5 C Pulse Rate 119 H 97 90 Respiratory Rate 18 Blood Pressure 112/66 Pulse Oximetry 92 03/03/20 04:00 03/03/20 06:00 03/03/20 08:00 Temperature 36.3 C L Pulse Rate 88 89 116 H Respiratory Rate 16 Blood Pressure 121/78 Pulse Oximetry 94 03/03/20 09:57 03/03/20 12:00 Temperature Pulse Rate 105 H 96 Respiratory Rate Blood Pressure Pulse Oximetry Intake/Output Intake/Output: Intake & Output 02/29/20 03/01/20 03/02/20 03/03/20 23:59 23:59 23:59 23:59 Intake Total 1110 1280 1300 870 Output Total 1850 2750 1600 1250 [facility] -[phone] -[phone] Meds/Results Medications: Active Medications Generic Name Dose Route Start
--- NOTE | 2020-03-03 14:06 | PM.IMPN ---
Progress Note: A&P Assessment and Plan (1) Acute and chronic respiratory failure ([id number]): Code(s): J96.20 - Acute and chronic respiratory failure, unspecified whether with hypoxia or hypercapnia Status: Acute Assessment and Plan: CXR findings most likely related to CHF. Patient tolerating BiPAP at night when he wears it. He has not had a CPAP machine for many years. Currently on 5L nasal cannula. Good diuresis but minimal negative fluid balance. Continue to wean down to his baseline 3 L nasal cannula. Will need apnea link toward the end of his stay. (2) Acute diastolic heart failure: Code(s): I50.31 - Acute diastolic (congestive) heart failure Status: Acute Assessment and Plan: On home Lasix at 80mg BID. This was changed to IV form. CXR on admission as above. Trop negative x3. BNP 1470. Minor negative fluid balance with good UOP. Repeat CXR showing persistent pulmonary edema. Continue to follow Is and Os. Continue fluid restricted. Wean O2 as tolerated. Monitor renal function. Change to Bumex. Metolazone to be repeated (3) Persistent atrial fibrillation: Code(s): I48.19 - Other persistent atrial fibrillation Status: Chronic Assessment and Plan: HR better controlled now. Was on Metoprolol 150mg BID on admission but this was dropped to 100mg BID and Diltiazem added. INR remains therapeutic. Continue warfarin. Daily INR. Statin changed form Zocor to Lipitor due to the addition of Diltiazem. (4) Chronic anemia: Code(s): D64.9 - Anemia, unspecified Status: Acute Assessment and Plan: Hemoglobin mostly in the 10 range in January. Hemoglobin has drifted down to 7-8 this admission. No signs of acute blood loss. He is on Coumadin. Iron studies noted. Monitor H/H, transfuse prn. (5) Type 2 diabetes mellitus without complication, without long-term current use of insulin: Code(s): E11.9 - Type 2 diabetes mellitus without complications Status: Chronic Assessment and Plan: The patient's blood glucose was reviewed on 03/03. Glucose remains well controlled. Continue AccuCheks covering with sliding scale. Hypoglycemia protocol available as needed. Continue metformin. (6) Hyperthyroidism: Code(s): E05.90 - Thyrotoxicosis, unspecified without thyrotoxic crisis or storm Status: Chronic Assessment and Plan: TSH 46 in January so methimazole dose decreased from 20mg to 10mg. TSH 5.3 on 02/15/20. Continue methimazole at lower dose of 10 mg. (7) Chronic obstructive pulmonary disease, unspecified: Qualifiers: COPD type: unspecified COPD Qualified Code(s): J44.9 - Chronic obstructive pulmonary disease, unspecified Code(s): J44.9 - Chronic obstructive pulmonary disease, unspecified Status: Chronic Assessment and Plan: Stable. No wheezing. WBC slightly elevated initially but normal now. Continue to monitor. (8) DVT prophylaxis: Code(s): Z29.9 - Encounter for prophylactic measures, unspecified Status: Acute Assessment and Plan: On Coumadin. INR therapeutic Subjective Date/time seen: 03/03/20 14:06 Interval history: 59yo male with CHF here for acute on chronic respiratory failure from CHF exacerbation and AFib/RVR. Patient wears 3L NC at home. He does not use BiPAP at home. No complaints today. Voiding well. no nausea or vomiting. Slept well last night but did not wear his mask. He is up walking to the bathroom with standby assist. No chest pain. He has mild shortness of breath at times. No significant dyspnea on exertion. Exam Narrative: Exam Narrative: AF 97.4 121/78 96 94% 5L Gen - NARD sitting up in bed Chest - bibasilar crackles R>L CV - Irregularly irregular. S1-S2. Abd - Soft, obese, NT, +BS Ext - 1+ pitting and nonpitting pedal edema Psych - Nml mood and affect; in good spirits Skin - Warm and dry Ob
[2020-03-03] MEDS: POTASSIUM CHLORIDE 20 MEQ TABLET 40 MEQ PO (15:09)
[2020-03-03] MEDS: metOLazone 5 MG TABLET PO (15:10)
[2020-03-03] MEDS: BUMETANIDE INJ 1 MG/4 ML VIAL 2 MG IV PUSH (16:39)
[2020-03-03] MEDS: WARFARIN (*PBKC) 7.5 MG TABLET PO (16:44)
[2020-03-03 16:50] LABS: Glucose Point of Care 124 (65-105)
[2020-03-04] VITALS (14 sets, daily range): BP systolic 114–121; BP diastolic 65–69; PULSE 85–111; RESP 13–20; TEMP 36.4–36.9; O2SAT 90–96
[2020-03-04 01:21] LABS: Glucose Point of Care 160 (65-105)
[2020-03-04 05:49] LABS: INR 1.7; Prothrombin Time 19.3 Seconds (11.1-14.7)
[2020-03-04 06:04] LABS: Albumin Level 3.8 g/dL (3.5-5.1); Anion Gap 13.99999 mmol/L (8-16); Blood Urea Nitrogen 29 mg/dL (9-20); Calcium 8.6 mg/dL (8.4-10.2); Carbon Dioxide > 40 mmol/L (22-30); Chloride 81 mmol/L (98-107); Estimated CRCL calculation 103 ml/min; Estimated Glomerular Filt Rate > 60; Glucose 158 mg/dL (75-110); Phosphorus 3.9 mg/dL (2.5-4.5); Potassium 3.3 mmol/L (3.4-5.0); Sodium 135 mmol/L (137-145)
[2020-03-04 07:55] LABS: Glucose Point of Care 128 (65-105)
[2020-03-04] MEDS: ASPIRIN 81 MG CHEWABLE TABLET PO (09:45)
[2020-03-04] MEDS: METOPROLOL TARTRATE 50 MG TAB 100 MG PO ×2 (09:45→20:44)
[2020-03-04] MEDS: WARFARIN (*PBKC) 5 MG TABLET PO ×2 (09:45→16:28)
[2020-03-04] MEDS: metFORMIN HCL 500 MG TABLET PO ×2 (09:46→16:28)
[2020-03-04] MEDS: ESCITALOPRAM OXALATE 5 MG TABLET PO (09:46)
[2020-03-04] MEDS: ATORVASTATIN 20 MG TABLET PO (09:46)
[2020-03-04] MEDS: SPIRONOLACTONE 12.5 MG TABLET PO (09:47)
[2020-03-04] MEDS: methiMAzole 10 MG TAB PO (09:47)
[2020-03-04] MEDS: BUMETANIDE INJ 1 MG/4 ML VIAL 2 MG IV PUSH ×2 (09:47→16:28)
[2020-03-04] MEDS: MAGNESIUM OXIDE 400 MG TABLET PO (09:47)
[2020-03-04] MEDS: ALPRAZolam 0.5 MG TABLET PO ×3 (09:51→16:28)
[2020-03-04] MEDS: POTASSIUM CHLORIDE 20 MEQ TABLET 40 MEQ PO (09:51)
[2020-03-04 11:36] LABS: Glucose Point of Care 150 (65-105)
--- NOTE | 2020-03-04 13:18 | PM.PNCARD ---
Progress Note: A&P Assessment and Plan (1) Acute diastolic heart failure: Code(s): I50.31 - Acute diastolic (congestive) heart failure Status: Acute Assessment and Plan: 59 y/o with h/o CAD s/p CABG and mitral valve repair, Chronic A fib on coumadin, HERNAN, CVA, recent admission with JESUS/dehydration who presents now with shortness of breath and acute CHF exacerbation with A fib and RVR Creatinine remains stable. Will continue with IV lasix 80 mg BID Will also give one time dose of Metolazone Monitor creatinine Need to replace K He had recent echocardiogram in January. EF 50-55% with mildly dilated LV. Mild MR with mitral ring prosthesis. (2) Atrial fibrillation with rapid ventricular response: Code(s): I48.91 - Unspecified atrial fibrillation Status: Acute Assessment and Plan: Continue Metoprolol 100 BID. Added Diltiazem 120 daily. HR better overall ~90-100 Continue coumadin. Anemia noted. Need close follow up of INR (3) HERNAN (obstructive sleep apnea): Code(s): G47.33 - Obstructive sleep apnea (adult) (pediatric) Status: Acute Assessment and Plan: Continue CPAP QHS Subjective Date/time seen: 03/04/20 13:18 He feels better today, still with mild shortness of breath, mild cough and mild leg swelling. Exam Const: General: alert and awake; No acute distress Nutritional Appearance: obese Other: Pt on CPAP HENMT: Head: normal to inspection and atraumatic Ears: hearing grossly normal bilaterally Face and sinus: normal facial exam Eyes: General: appearance normal, both eyes and all related structures Pupils: Equal, round and reactive pupils present EOM: EOMs intact bilaterally Neck: Neck: normal visual inspection and no JVD Chest: Chest palpation & inspection: normal inspection of the chest Resp: Effort & Inspection: normal respiratory effort and no respiratory distress Auscultation: diminished lung sounds Cardio: Jugular venous distension: no JVD Rate: regular rate Heart sounds: S1 normal heart sound present, S2 normal heart sound present and no murmurs GI: Inspection: normal to inspection Auscultation: normal bowel sounds Skin: General skin exam: normal color Neuro: Cranial nerves: Yes Equal, round and reactive pupils present Extrem: General: edema (2+ matthew LE edema) Objective Data Vital Signs Vital Signs: Vital Signs - 24 hr 03/03/20 14:00 08/23/20 15:20 03/03/20 16:00 Temperature 36.3 C L Pulse Rate 86 95 Respiratory Rate 20 Blood Pressure 104/62 Pulse Oximetry 96 96 03/03/20 16:15 03/03/20 16:23 03/03/20 20:00 Temperature Pulse Rate 99 Respiratory Rate Blood Pressure Pulse Oximetry 87 L 91 03/03/20 20:29 03/03/20 20:45 03/03/20 20:53 Temperature 36.9 C Pulse Rate 110 H 102 H Respiratory Rate 16 17 Blood Pressure 113/77 Pulse Oximetry 95 94 97 03/04/20 00:00 03/04/20 02:01 03/04/20 04:00 Temperature Pulse Rate 85 88 108 H Respiratory Rate 13 Blood Pressure Pulse Oximetry 93 03/04/20 06:00 03/04/20 08:00 03/04/20 09:29 Temperature 36.4 C Pulse Rate 99 99 Respiratory Rate 18 Blood Pressure 114/69 Pulse Oximetry 96 93 03/04/20 09:45 03/04/20 12:00 Temperature Pulse Rate 99 111 H Respiratory Rate Blood Pressure Pulse Oximetry Intake/Output Intake/Output: Intake & Output 03/01/20 03/02/20 03/03/20 03/04/20 23:59 23:59 23:59 23:59 Intake Total 1280 1300 1380 620 Output Total 2750 1600 1115 1600 [facility] -1470 -300 -1445 -980 Meds/Results Medications: Active Medications Generic Name Dose Route Start Last Admin Trade Name Freq PRN Reason Stop Dose Admin Acetaminophen 650 mg 02/28/20 19:38 Tylenol Tablet PO Q4H PRN Mild Pain (1-3) or Fever Hydrocodone Bitart/Acetaminophen 2 tab 02/28/20 17:24 03/04/20 09:51 [place] 5-325 Mg PO 2 tab Q4H PRN Administration Pain Rated 7-10 Alprazolam 0.5 mg 08
--- NOTE | 2020-03-04 16:12 | PM.IMPN ---
Progress Note: A&P Assessment and Plan (1) Acute and chronic respiratory failure ([id number]): Code(s): J96.20 - Acute and chronic respiratory failure, unspecified whether with hypoxia or hypercapnia Status: Acute Assessment and Plan: CXR findings most likely related to CHF. Patient tolerating BiPAP at night when he wears it. He has not had a CPAP machine for many years. Currently on 4L nasal cannula. Good diuresis but minimal negative fluid balance. Continue to wean down to his baseline 3 L nasal cannula. Will need apnea link toward the end of his stay. (2) Acute diastolic heart failure: Code(s): I50.31 - Acute diastolic (congestive) heart failure Status: Acute Assessment and Plan: On home Lasix at 80mg BID. This was changed to IV form. CXR on admission as above. Trop negative x3. BNP 1470. Negative fluid balance with good UOP. Repeat CXR showing persistent pulmonary edema. Continue to follow Is and Os. Continue fluid restricted. Wean O2 as tolerated. Monitor renal function. Changed to Bumex. Also receiving intermittent Metolazone dosing (3) Persistent atrial fibrillation: Code(s): I48.19 - Other persistent atrial fibrillation Status: Chronic Assessment and Plan: HR better controlled now. Was on Metoprolol 150mg BID on admission but this was dropped to 100mg BID and Diltiazem added. INR subtherapeutic. Continue warfarin but add one extra dose today. Daily INR. Statin changed form Zocor to Lipitor due to the addition of Diltiazem. (4) Chronic anemia: Code(s): D64.9 - Anemia, unspecified Status: Acute Assessment and Plan: Hemoglobin mostly in the 10 range in January. Hemoglobin has drifted down to 7-8 this admission. No signs of acute blood loss. He is on Coumadin. Iron studies noted. Monitor H/H, transfuse prn. (5) Type 2 diabetes mellitus without complication, without long-term current use of insulin: Code(s): E11.9 - Type 2 diabetes mellitus without complications Status: Chronic Assessment and Plan: The patient's blood glucose was reviewed on . Glucose remains well controlled. Continue AccuCheks covering with sliding scale. Hypoglycemia protocol available as needed. Continue metformin. (6) Hyperthyroidism: Code(s): E05.90 - Thyrotoxicosis, unspecified without thyrotoxic crisis or storm Status: Chronic Assessment and Plan: TSH 46 in January so methimazole dose decreased from 20mg to 10mg. TSH 5.3 on 02/15/20. Continue methimazole at lower dose of 10 mg. (7) Chronic obstructive pulmonary disease, unspecified: Qualifiers: COPD type: unspecified COPD Qualified Code(s): J44.9 - Chronic obstructive pulmonary disease, unspecified Code(s): J44.9 - Chronic obstructive pulmonary disease, unspecified Status: Chronic Assessment and Plan: Stable. No wheezing. Continue to monitor. (8) DVT prophylaxis: Code(s): Z29.9 - Encounter for prophylactic measures, unspecified Status: Acute Assessment and Plan: On Coumadin. INR sub therapeutic. Coumadin 5mg x1. Subjective Date/time seen: 03/04/20 16:12 Interval history: 59yo male with CHF here for acute on chronic respiratory failure from CHF exacerbation and AFib/RVR. Patient wears 3L NC at home. He does not use BiPAP at home. Eating well. Slept okay. Normal bowel movements. Did not wear the mask. Shortness of breath is much improved. Exam Narrative: Exam Narrative: AF 98.5 121/67 87 19 94% ra Gen - NARD Chest - Left base inspiratory crackles otherwise distant breath sounds. CV - Irregularly irregular. S1-S2. Telemetry showing 1 episode of 4 beat run of nonsustained V-tach Abd - Soft, obese, NT, +BS Ext - 1+ pitting and nonpitting pedal edema Psych - Nml mood and affect; in good spirits Skin - Warm and dry Objective Data Vital Signs Vital Signs:
[2020-03-04 16:46] LABS: Glucose Point of Care 150 (65-105)
[2020-03-04 20:21] LABS: Glucose Point of Care 174 (65-105)
[2020-03-05] VITALS (12 sets, daily range): BP systolic 98–117; BP diastolic 62–73; PULSE 82–108; RESP 15–20; TEMP 36.1–36.6; O2SAT 87–97
[2020-03-05 05:37] LABS: Hemoglobin 8.2 g/dL (14.0-18.0); Mean Corpuscular HGB Conc 28.3 g/dl (32-36); Mean Corpuscular Hemoglobin 25.5 pg (26-34); Mean Corpuscular Volume 90.3 fl (80-100); Platelet Count Result 195 k/mm3 (150-375); Red Blood Count 3.21 M/mm3 (4.6-6.20); Red Cell Distribution Width 19.3 % (11.5-14.5); White Blood Count 11.3 K/mm3 (4.5-10.0)
[2020-03-05 05:55] LABS: Anion Gap 12.99999 mmol/L (8-16); Blood Urea Nitrogen 27 mg/dL (9-20); Calcium 8.6 mg/dL (8.4-10.2); Carbon Dioxide > 40 mmol/L (22-30); Chloride 82 mmol/L (98-107); Estimated CRCL calculation 103 ml/min; Estimated Glomerular Filt Rate > 60; Glucose 147 mg/dL (75-110); Magnesium 2.4 mg/dL (1.6-2.3); Potassium 3.9 mmol/L (3.4-5.0); Sodium 135 mmol/L (137-145)
[2020-03-05] MEDS: ALPRAZolam 0.5 MG TABLET PO ×3 (07:54→17:38)
[2020-03-05] MEDS: ASPIRIN 81 MG CHEWABLE TABLET PO (07:55)
[2020-03-05] MEDS: methiMAzole 10 MG TAB PO (07:55)
[2020-03-05] MEDS: SPIRONOLACTONE 12.5 MG TABLET PO (07:55)
[2020-03-05] MEDS: metFORMIN HCL 500 MG TABLET PO ×2 (07:56→17:38)
[2020-03-05] MEDS: ATORVASTATIN 20 MG TABLET PO (07:56)
[2020-03-05] MEDS: METOPROLOL TARTRATE 50 MG TAB 100 MG PO ×2 (07:56→19:58)
[2020-03-05] MEDS: BUMETANIDE INJ 1 MG/4 ML VIAL 2 MG IV PUSH ×2 (07:57→17:38)
[2020-03-05] MEDS: ESCITALOPRAM OXALATE 5 MG TABLET PO (07:58)
[2020-03-05 08:03] LABS: Glucose Point of Care 141 (65-105)
[2020-03-05 11:58] LABS: Glucose Point of Care 128 (65-105)
--- NOTE | 2020-03-05 13:44 | PM.PNCARD ---
Progress Note: A&P Assessment and Plan (1) Acute diastolic heart failure: Code(s): I50.31 - Acute diastolic (congestive) heart failure Status: Acute Assessment and Plan: 59 y/o with h/o CAD s/p CABG and mitral valve repair, Chronic A fib on coumadin, HERNAN, CVA, recent admission with JESUS/dehydration who presents now with shortness of breath and acute CHF exacerbation with A fib and RVR He was switched to Bumex and his urine output improved. Net negative 1 liter so far today. He is also scheduled to received dose of Metolazone this afternoon Creatinine remains stable. Will plan discharge possibly tomorrow if he continues to improve. Will discharge on Bumex for better bio-availability and he responded better to it compared to lasix. Would also discharge on Metolazone 3 times a week He had recent echocardiogram in January. EF 50-55% with mildly dilated LV. Mild MR with mitral ring prosthesis. He is followed by Dr Vasquez at [facility]. He will need close follow up post discharge (2) Atrial fibrillation with rapid ventricular response: Code(s): I48.91 - Unspecified atrial fibrillation Status: Acute Assessment and Plan: Continue Metoprolol 100 BID (dose decreased this admission) Continue Diltiazem 120 daily (started this admission). HR better overall ~90-100 Continue coumadin. (3) HERNAN (obstructive sleep apnea): Code(s): G47.33 - Obstructive sleep apnea (adult) (pediatric) Status: Acute Assessment and Plan: Continue CPAP QHS Subjective Date/time seen: 03/05/20 13:44 No overnight events. He denies chest pain or dyspnea. Leg edema continues to improve Review of Systems Review of Systems: All systems reviewed & are unremarkable except as noted in HPI and below Constitutional: Constitutional: Reports as per HPI Eyes: Eyes: Reports as per HPI ENT: Reports system reviewed and no additional complaints, except as documented and Reports as per HPI Cardiovascular: Cardiovascular: Reports as per HPI Respiratory: Respiratory: Reports as per HPI Gastrointestinal: Gastrointestinal: Reports as per HPI Genitourinary: Genitourinary: Reports as per HPI Musculoskeletal: Musculoskeletal: Reports as per HPI Exam Const: General: alert and awake; No acute distress Nutritional Appearance: obese Other: Pt on CPAP HENMT: Head: normal to inspection and atraumatic Ears: hearing grossly normal bilaterally Face and sinus: normal facial exam Eyes: General: appearance normal, both eyes and all related structures Pupils: Equal, round and reactive pupils present EOM: EOMs intact bilaterally Neck: Neck: normal visual inspection and no JVD Chest: Chest palpation & inspection: normal inspection of the chest Resp: Effort & Inspection: normal respiratory effort and no respiratory distress Auscultation: diminished lung sounds Cardio: Jugular venous distension: no JVD Rate: regular rate Heart sounds: S1 normal heart sound present, S2 normal heart sound present and no murmurs GI: Inspection: normal to inspection Auscultation: normal bowel sounds Skin: General skin exam: normal color Neuro: Cranial nerves: Yes Equal, round and reactive pupils present Extrem: General: edema (2+ matthew LE edema) Objective Data Vital Signs Vital Signs: Vital Signs - 24 hr 03/04/20 14:00 03/04/20 16:00 03/04/20 20:00 Temperature 36.9 C Pulse Rate 87 87 105 H Respiratory Rate 19 Blood Pressure 121/67 Pulse Oximetry 94 03/04/20 20:32 03/04/20 20:44 03/04/20 22:00 Temperature 36.5 C Pulse Rate 92 98 Respiratory Rate 20 Blood Pressure 118/65 Pulse Oximetry 90 93 03/05/20 00:00 03/05/20 04:00 03/05/20 05:54 Temperature 36.6 C Pulse Rate 93 95 97 Respiratory Rate 20 Blood Pressure 117/73 Pulse Oximetry 87 L 03/05/20 08:00 03/05/20 08:16 03/05/20 12:00 Temperature Pulse Rate 108 H 99 Respiratory Rate Blood Pressure Pulse Oximetry 90
[2020-03-05] MEDS: LIDOCAINE 5% PATCH 1 PATCH TRANSDERM (14:42)
[2020-03-05] MEDS: metOLazone 5 MG TABLET PO (14:42)
--- NOTE | 2020-03-05 16:37 | PM.IMPN ---
Progress Note: A&P Assessment and Plan (1) Acute and chronic respiratory failure ([id number]): Code(s): J96.20 - Acute and chronic respiratory failure, unspecified whether with hypoxia or hypercapnia Status: Acute Assessment and Plan: CXR findings most likely related to CHF. Patient tolerating BiPAP at night when he wears it. He has not had a CPAP machine for many years. Currently on 3L nasal cannula. Good diuresis . . (2) Acute diastolic heart failure: Code(s): I50.31 - Acute diastolic (congestive) heart failure Status: Acute Assessment and Plan: On home Lasix at 80mg BID. This was changed to IV form. CXR on admission as above. Trop negative x3. BNP 1470. Minor negative fluid balance with good UOP. Repeat CXR showing persistent pulmonary edema. Continue to follow Is and Os. Continue fluid restricted. Wean O2 as tolerated. Monitor renal function. Changed to Bumex. Metolazone to be repeated againt today too (3) Persistent atrial fibrillation: Code(s): I48.19 - Other persistent atrial fibrillation Status: Chronic Assessment and Plan: HR better controlled now. Was on Metoprolol 150mg BID on admission but this was dropped to 100mg BID and Diltiazem added. INR recheck am. Continue warfarin. Statin changed form Zocor to Lipitor due to the addition of Diltiazem. (4) Chronic anemia: Code(s): D64.9 - Anemia, unspecified Status: Acute Assessment and Plan: Hemoglobin mostly in the 10 range in January. Hemoglobin has drifted down to 7-8 this admission. No signs of acute blood loss. He is on Coumadin. Iron studies noted. Monitor H/H, transfuse prn. (5) Type 2 diabetes mellitus without complication, without long-term current use of insulin: Code(s): E11.9 - Type 2 diabetes mellitus without complications Status: Chronic Assessment and Plan: The patient's blood glucose was reviewed on 03/05. Glucose remains well controlled. Continue AccuCheks covering with sliding scale. Hypoglycemia protocol available as needed. Continue metformin. (6) Hyperthyroidism: Code(s): E05.90 - Thyrotoxicosis, unspecified without thyrotoxic crisis or storm Status: Chronic Assessment and Plan: TSH 46 in January so methimazole dose decreased from 20mg to 10mg. TSH 5.3 on 02/15/20. Continue methimazole at lower dose of 10 mg. (7) Chronic obstructive pulmonary disease, unspecified: Qualifiers: COPD type: unspecified COPD Qualified Code(s): J44.9 - Chronic obstructive pulmonary disease, unspecified Code(s): J44.9 - Chronic obstructive pulmonary disease, unspecified Status: Chronic Assessment and Plan: Stable. No wheezing. WBC slightly elevated initially but normal now. Continue to monitor. (8) DVT prophylaxis: Code(s): Z29.9 - Encounter for prophylactic measures, unspecified Status: Acute Assessment and Plan: On Coumadin. INR therapeutic Subjective Date/time seen: 03/05/20 16:37 Interval history: DAte of visit 03/05. 59yo male with CHF here for acute on chronic respiratory failure from CHF exacerbation and AFib/RVR. Patient wears 3L NC at home. He does not use BiPAP at home. Eating well. Slept okay. Normal bowel movements. Did not wear the mask. Shortness of breath is much improved. Still some swelling Exam Narrative: Exam Narrative: AF 98.5 100/62 86 19 97% 3L Gen - NARD Chest - Left base faint inspiratory crackles otherwise distant breath sounds. CV - Irregularly irregular. S1-S2 Abd - Soft, obese, NT, +BS Ext - 1+ pitting and nonpitting pedal edema Psych - Nml mood and affect; in good spirits Skin - Warm and dry Objective Data Vital Signs Vital Signs: Vital Signs - 24 hr 03/04/20 20:00 03/04/20 20:32 03/04/20 20:44 Temperature Pulse Rate 105 H 92 Respiratory Rate Blood Pressure Pulse Oximetry 90 08/
--- NOTE | 2020-03-05 16:46 | PCRCNOTE ---
SPOKE TO PT IN REGARDS TO CURRENT HOME O2 DME COMPANY. HE DOESNT KNOW WHO PROVIDES HIM WITH HOME O2. RECEIVED O2 FROM [facility] WHEN HE DISCHARGED FROM THERE.
[2020-03-05 16:51] LABS: Glucose Point of Care 125 (65-105)
[2020-03-05] MEDS: WARFARIN (*PBKC) 7.5 MG TABLET PO (17:38)
[2020-03-05] MEDS: ACETAMINOPHEN 325 MG TABLET 650 MG PO (19:55)
[2020-03-05 21:26] LABS: Glucose Point of Care 145 (65-105)
[2020-03-06] VITALS (12 sets, daily range): BP systolic 109–118; BP diastolic 67–77; PULSE 91–130; RESP 19–22; TEMP 35.5–36.9; O2SAT 91–96
[2020-03-06 06:36] LABS: Basophils Percent Auto 0.4 % (0.2-1.2); Eosinophils Absolute Auto 0.4 K/mm3 (0-0.3); Eosinophils Percent Auto 3.4 % (0-4.4); Hematocrit 28.7 % (42.0-52.0); Hemoglobin 8.2 g/dL (14.0-18.0); Immature Granulocyte Absolute 0.04 K/mm3 (0.00-0.031); Immature Granulocyte Percent A 0.4 % (0-0.5); Lymphocytes Absolute Auto 0.98 K/mm3 (0.9-3.2); Lymphocytes Percent Auto 9.6 % (18.3-44.2); Mean Corpuscular HGB Conc 28.6 g/dl (32-36); Mean Corpuscular Hemoglobin 25.5 pg (26-34); Mean Corpuscular Volume 89.4 fl (80-100); Mean Platelet Volume 9.3 fl (7.4-10.4); Monocytes Absolute Auto 1.1 K/mm3 (0.1-0.6); Monocytes Percent Auto 10.3 % (2.6-8.5); Neutrophils Absolute Auto 7.7 K/mm3 (1.3-6.7); Neutrophils Percent Auto 75.9 % (45.5-73.1); Platelet Count Result 197 k/mm3 (150-375); Red Blood Count 3.21 M/mm3 (4.6-6.20); White Blood Count 10.2 K/mm3 (4.5-10.0)
[2020-03-06 06:44] LABS: INR 2.1; Prothrombin Time 22.9 Seconds (11.1-14.7)
[2020-03-06 06:50] LABS: Potassium 3.5 mmol/L (3.4-5.0)
[2020-03-06 07:08] LABS: Anion Gap 10.99999 mmol/L (8-16); Blood Urea Nitrogen 27 mg/dL (9-20); Calcium 8.6 mg/dL (8.4-10.2); Carbon Dioxide > 40 mmol/L (22-30); Chloride 83 mmol/L (98-107); Estimated CRCL calculation 115 ml/min; Estimated Glomerular Filt Rate > 60; Glucose 133 mg/dL (75-110); Sodium 134 mmol/L (137-145)
[2020-03-06 07:32] LABS: Hypochromasia 1+ (NORMAL); Platelet Estimate Adequate (Adequate)
[2020-03-06 07:33] LABS: Anisocytosis 1+ (NORMAL); Ovalocytes 1+ (NORMAL); Poikilocytosis 1+ (NORMAL); Stomatocytes 1+ (NORMAL)
[2020-03-06 07:50] LABS: Glucose Point of Care 138 (65-105)
[2020-03-06] MEDS: METOPROLOL TARTRATE 50 MG TAB 100 MG PO ×2 (08:06→20:39)
[2020-03-06] MEDS: metFORMIN HCL 500 MG TABLET PO ×2 (08:08→17:52)
[2020-03-06] MEDS: methiMAzole 10 MG TAB PO (08:08)
[2020-03-06] MEDS: ATORVASTATIN 20 MG TABLET PO (08:08)
[2020-03-06] MEDS: BUMETANIDE INJ 1 MG/4 ML VIAL 2 MG IV PUSH ×2 (08:08→17:52)
[2020-03-06] MEDS: MAGNESIUM OXIDE 400 MG TABLET PO (08:08)
[2020-03-06] MEDS: ESCITALOPRAM OXALATE 5 MG TABLET PO (08:09)
[2020-03-06] MEDS: LIDOCAINE 5% PATCH 2 PATCH TRANSDERM (08:09)
[2020-03-06] MEDS: SPIRONOLACTONE 12.5 MG TABLET PO (08:09)
[2020-03-06] MEDS: ASPIRIN 81 MG CHEWABLE TABLET PO (08:09)
[2020-03-06] MEDS: ALPRAZolam 0.5 MG TABLET PO ×3 (08:11→17:52)
[2020-03-06] MEDS: POTASSIUM CHLORIDE 20 MEQ TABLET 40 MEQ PO (08:11)
--- NOTE | 2020-03-06 08:57 | PM.PNCARD ---
Progress Note: A&P Assessment and Plan (1) Acute diastolic heart failure: Code(s): I50.31 - Acute diastolic (congestive) heart failure Status: Acute Assessment and Plan: 59 y/o with h/o CAD s/p CABG and mitral valve repair, Chronic A fib on coumadin, HERNAN, CVA, recent admission with JESUS/dehydration who presents now with shortness of breath and acute CHF exacerbation with A fib and RVR He diuresed very well so far and appears close to euvolemia now He is stable for discharge from cardiac standpoint. Would recommend following regimen on discharge s/c Lasix 80 BID. Start Bumex 2 mg BID Metolazone 5 mg Twice a WEEK Metoprolol 100 BID (previously on 150 BID) Diltiazem 180 mg daily (newly started this admission) Continue Coumadin He is followed by Dr Vasquez at [facility]. He will need close follow up post discharge (2) Atrial fibrillation with rapid ventricular response: Code(s): I48.91 - Unspecified atrial fibrillation Status: Acute Assessment and Plan: Heart rate well controlled overall. Elevated this am as did not received evening dose of Metoprolol Will follow HR control after am meds. If better by afternoon then he should be stable for discharge Continue coumadin. (3) HERNAN (obstructive sleep apnea): Code(s): G47.33 - Obstructive sleep apnea (adult) (pediatric) Status: Acute Assessment and Plan: Continue CPAP QHS Subjective Date/time seen: 03/06/20 08:57 He feels good. HR up to 120s this am. It appears he did not take his evening dose of Metoprolol last night (tablet found by nursing staff in his room this morning) Review of Systems Review of Systems: All systems reviewed & are unremarkable except as noted in HPI and below Constitutional: Constitutional: Reports as per HPI Eyes: Eyes: Reports as per HPI ENT: Reports system reviewed and no additional complaints, except as documented and Reports as per HPI Cardiovascular: Cardiovascular: Reports as per HPI Respiratory: Respiratory: Reports as per HPI Gastrointestinal: Gastrointestinal: Reports as per HPI Genitourinary: Genitourinary: Reports as per HPI Musculoskeletal: Musculoskeletal: Reports as per HPI Exam Const: General: alert and awake; No acute distress Nutritional Appearance: obese Other: Pt on CPAP HENMT: Head: normal to inspection and atraumatic Ears: hearing grossly normal bilaterally Face and sinus: normal facial exam Eyes: General: appearance normal, both eyes and all related structures Pupils: Equal, round and reactive pupils present EOM: EOMs intact bilaterally Neck: Neck: normal visual inspection and no JVD Chest: Chest palpation & inspection: normal inspection of the chest Resp: Effort & Inspection: normal respiratory effort and no respiratory distress Auscultation: diminished lung sounds Cardio: Jugular venous distension: no JVD Rate: regular rate Heart sounds: S1 normal heart sound present, S2 normal heart sound present and no murmurs GI: Inspection: normal to inspection Auscultation: normal bowel sounds Skin: General skin exam: normal color Neuro: Cranial nerves: Yes Equal, round and reactive pupils present Extrem: General: edema (2+ matthew LE edema) Objective Data Vital Signs Vital Signs: Vital Signs - 24 hr 03/05/20 12:00 03/05/20 14:00 03/05/20 16:00 Temperature 36.4 C L Pulse Rate 99 88 84 Respiratory Rate 20 Blood Pressure 98/62 L Pulse Oximetry 97 03/05/20 19:58 03/05/20 20:00 03/05/20 21:15 Temperature 36.1 C L Pulse Rate 82 97 Respiratory Rate 20 Blood Pressure 100/66 Pulse Oximetry 97 93 03/05/20 23:35 03/06/20 00:00 03/06/20 03:54 Temperature Pulse Rate 90 100 98 Respiratory Rate 15 Blood Pressure Pulse Oximetry 94 95 03/06/20 04:00 03/06/20 08:06 03/06/20 08:41 Temperature 36.1 C L Pulse Rate 99 130 H 108 H Respiratory Rate 20 20 Blood Pressure 109/72 Pulse Oximetry 94 91
--- NOTE | 2020-03-06 09:43 | PC.NURSE ---
Patient has received Diltiazem 120mg this morning prior to his new order of Diltiazem 180mg. Does he want patient to receive 120mg and 180mg this morning? Per Dr. Szymanski, it is okay to not give patient the new Dilt 180mg order since he has received 120mg already. Monitor HR. Nonadministered the 0900 Diltiazem CD 180mg dose.
--- NOTE | 2020-03-06 10:55 | PM.IMPN ---
Progress Note: A&P Assessment and Plan (1) Acute and chronic respiratory failure ([id number]): Code(s): J96.20 - Acute and chronic respiratory failure, unspecified whether with hypoxia or hypercapnia Status: Acute Assessment and Plan: CXR findings related to CHF ad copd . Patient tolerating ventilator device at night which he requires . He has not had a ventilator device for home use for many years. Currently on 3L nasal cannula. Good diuresis . Due to his COPD and chronic respiratory failure with c02 retention he requires a ventilator for non-invasive ventilation to reduce the c02 levels , improve overall lung function and reduce hospital readmissions . (2) Acute diastolic heart failure: Code(s): I50.31 - Acute diastolic (congestive) heart failure Status: Acute Assessment and Plan: On home Lasix at 80mg BID. This was changed to IV form. CXR on admission as above. Trop negative x3. BNP 1470. Minor negative fluid balance with good UOP. Repeat CXR showed persistent pulmonary edema. Changed to Bumex. Metolazone to be repeated last days with good output (3) Persistent atrial fibrillation: Code(s): I48.19 - Other persistent atrial fibrillation Status: Chronic Assessment and Plan: HR better controlled now. Was on Metoprolol 150mg BID on admission but this was dropped to 100mg BID and Diltiazem added. INR 2.1 . Continue warfarin. Statin changed form Zocor to Lipitor due to the addition of Diltiazem. (4) Chronic anemia: Code(s): D64.9 - Anemia, unspecified Status: Acute Assessment and Plan: Hemoglobin mostly in the 10 range in January. Hemoglobin has drifted down to 7-8 this admission. No signs of acute blood loss. He is on Coumadin. Iron studies noted. Hgb 8.2 last 2 days Monitor H/H, transfuse prn. (5) Type 2 diabetes mellitus without complication, without long-term current use of insulin: Code(s): E11.9 - Type 2 diabetes mellitus without complications Status: Chronic Assessment and Plan: The patient's blood glucose was reviewed on 03/05. Glucose remains well controlled. Continue AccuCheks covering with sliding scale. Hypoglycemia protocol available as needed. Continue metformin. (6) Hyperthyroidism: Code(s): E05.90 - Thyrotoxicosis, unspecified without thyrotoxic crisis or storm Status: Chronic Assessment and Plan: TSH 46 in January so methimazole dose decreased from 20mg to 10mg. TSH 5.3 on 02/15/20. Continue methimazole at lower dose of 10 mg. (7) Chronic obstructive pulmonary disease, unspecified: Qualifiers: COPD type: unspecified COPD Qualified Code(s): J44.9 - Chronic obstructive pulmonary disease, unspecified Code(s): J44.9 - Chronic obstructive pulmonary disease, unspecified Status: Chronic Assessment and Plan: Stable. No wheezing. WBC slightly elevated initially but normal now. Continue to monitor. (8) DVT prophylaxis: Code(s): Z29.9 - Encounter for prophylactic measures, unspecified Status: Acute Assessment and Plan: On Coumadin. INR therapeutic Subjective Date/time seen: 03/06/20 10:55 Interval history: DAte of visit 03/06 . 59yo male with CHF here for acute on chronic respiratory failure from CHF exacerbation and AFib/RVR. Patient wears 3L NC at home. . Eating well. Slept okay. Normal bowel movements. . Shortness of breath is much improved. Minimal swelling Exam Narrative: Exam Narrative: AF 98.5 110/72 86 19 94% 3L Gen - NARD sitting in chair Chest - distant breath sounds otherwise clear CV - Irregularly irregular. S1-S2 Abd - Soft, obese, NT, +BS Ext - trace pitting and nonpitting pedal edema Psych - Nml mood and affect; in good spirits Skin - Warm and dry Objective Data Vital Signs Vital Signs: Vital Signs - 24 hr 03/05/20 12:00 03/05/20 14:00 03/05/20 16:00 Solange
[2020-03-06 11:37] LABS: Glucose Point of Care 118 (65-105)
[2020-03-06 16:30] LABS: Glucose Point of Care 144 (65-105)
[2020-03-06] MEDS: WARFARIN (*PBKC) 5 MG TABLET PO (17:53)
[2020-03-06 21:03] LABS: Glucose Point of Care 192 (65-105)
[2020-03-07] VITALS (9 sets, daily range): BP systolic 100–104; BP diastolic 60–63; PULSE 78–92; RESP 11–22; TEMP 36–36.5; O2SAT 90–97
[2020-03-07 06:14] LABS: Potassium 3.9 mmol/L (3.4-5.0)
[2020-03-07 06:40] LABS: Anion Gap 9.99999 mmol/L (8-16); Blood Urea Nitrogen 36 mg/dL (9-20); Calcium 8.8 mg/dL (8.4-10.2); Carbon Dioxide > 40 mmol/L (22-30); Chloride 84 mmol/L (98-107); Estimated CRCL calculation 93 ml/min; Estimated Glomerular Filt Rate > 60; Glucose 138 mg/dL (75-110); Sodium 134 mmol/L (137-145)
[2020-03-07 07:57] LABS: Glucose Point of Care 133 (65-105)
[2020-03-07] MEDS: METOPROLOL TARTRATE 50 MG TAB 100 MG PO (08:53)
[2020-03-07] MEDS: MAGNESIUM OXIDE 400 MG TABLET PO (08:53)
[2020-03-07] MEDS: metFORMIN HCL 500 MG TABLET PO (08:53)
[2020-03-07] MEDS: methiMAzole 10 MG TAB PO (08:53)
[2020-03-07] MEDS: ALPRAZolam 0.5 MG TABLET PO ×2 (08:53→13:00)
[2020-03-07] MEDS: SPIRONOLACTONE 25 MG TABLET PO (08:53)
[2020-03-07] MEDS: ASPIRIN 81 MG CHEWABLE TABLET PO (08:53)
[2020-03-07] MEDS: dilTIAZem HCL CD 180 MG CAP.ER.24H PO (08:53)
[2020-03-07] MEDS: ATORVASTATIN 20 MG TABLET PO (08:54)
[2020-03-07] MEDS: LIDOCAINE 5% PATCH 2 PATCH TRANSDERM (08:54)
[2020-03-07] MEDS: BUMETANIDE INJ 1 MG/4 ML VIAL 2 MG IV PUSH (08:54)
[2020-03-07] MEDS: ESCITALOPRAM OXALATE 5 MG TABLET PO (08:54)
[2020-03-07 11:45] LABS: Glucose Point of Care 116 (65-105)
--- NOTE | 2020-03-07 13:02 | PCNWS ---
Weekly nutritional screen. Patient is tolerating DBCC/2 gram sodium diet with a fluid restriction of 1,500 ml/day. Patient is eating 100% of meals with no diet related issues (i.e. N/V, Diarrhea, Constipation). Patient states the food is amazing and is feeling great with a strong appetite. Weight remans stable. Abdomen puncture is well approximated according to the integumentary report. No nutritional needs at this time.
--- NOTE | 2020-03-07 13:23 | PCNSR ---
On 03/07/20, the student, Kirby Alcantar, provided care and completed [facility] on this [facility]. I have reviewed the student's documentation and agree with the findings.
--- NOTE | 2020-03-07 18:12 | PM.DS ---
DS: Admitting Diagnosis Admitting Diagnosis Admitting Diagnosis: CHF and COPD ex DS: Discharge Diagnosis Discharge Diagnosis (1) Acute and chronic respiratory failure ([id number]): Code(s): J96.20 - Acute and chronic respiratory failure, unspecified whether with hypoxia or hypercapnia Status: Acute Assessment and Plan: CXR findings related to CHF ad copd . Patient tolerating ventilator device at night which he requires . He has not had a ventilator device for home use for many years. Currently on 3L nasal cannula. Good diuresis . Due to his COPD and chronic respiratory failure with c02 retention he requires a ventilator for non-invasive ventilation to reduce the c02 levels , improve overall lung function and reduce hospital readmissions trilogy unit approved for home use . (2) Acute diastolic heart failure: Code(s): I50.31 - Acute diastolic (congestive) heart failure Status: Acute Assessment and Plan: On home Lasix at 80mg BID. This was changed to IV form. CXR on admission as above. Trop negative x3. BNP 1470. Minor negative fluid balance with good UOP. Repeat CXR showed persistent pulmonary edema. Changed to Bumex. Metolazone and achieved good diuresis continue both at home with the spironolactone (3) Persistent atrial fibrillation: Code(s): I48.19 - Other persistent atrial fibrillation Status: Chronic Assessment and Plan: HR better controlled now. Was on Metoprolol 150mg BID on admission but this was dropped to 100mg BID and Diltiazem added. INR 2.1 . Continue warfarin. Statin changed form Zocor to Lipitor due to the addition of Diltiazem 180 daily. (4) Chronic anemia: Code(s): D64.9 - Anemia, unspecified Status: Acute Assessment and Plan: Hemoglobin mostly in the 10 range in January. Hemoglobin has drifted down to 7-8 this admission. No signs of acute blood loss. He is on Coumadin. Iron studies noted. Hgb 8.2 last 2 days Monitor H/H, transfuse prn. (5) Type 2 diabetes mellitus without complication, without long-term current use of insulin: Code(s): E11.9 - Type 2 diabetes mellitus without complications Status: Chronic Assessment and Plan: The patient's blood glucose was reviewed on 03/07. Glucose remains well controlled. Continue AccuCheks covering with sliding scale. Continue metformin on discharge. (6) Hyperthyroidism: Code(s): E05.90 - Thyrotoxicosis, unspecified without thyrotoxic crisis or storm Status: Chronic Assessment and Plan: TSH 46 in January so methimazole dose decreased from 20mg to 10mg. TSH 5.3 on 02/15/20. Continue methimazole at lower dose of 10 mg. (7) Chronic obstructive pulmonary disease, unspecified: Qualifiers: COPD type: unspecified COPD Qualified Code(s): J44.9 - Chronic obstructive pulmonary disease, unspecified Code(s): J44.9 - Chronic obstructive pulmonary disease, unspecified Status: Chronic Assessment and Plan: Stable. No wheezing. WBC slightly elevated initially but normal now. trilogy at night. (8) DVT prophylaxis: Code(s): Z29.9 - Encounter for prophylactic measures, unspecified Status: Acute Assessment and Plan: On Coumadin. INR therapeutic DS: Summary Hospital Course Hospital Course: 76-year-old obese white male with chronic AFib and diastolic heart failure admitted with respiratory failure. He was diuresed and medication adjusted and arrange for trilogy unit at home HS. Lasix was changed to Bumex 2 mg b.i.d. and will have metolazone 2 times a week BMP in 1 week and follow-up with cardiology in 2-3 week Time Spent with Patient Time attestation: Total time spent providing and/or coordinating discharge services: 35 minutes Exam Narrative: Exam Narrative: condition on discharge blood pressure 104/62 pulse is 78 saturating 95% on 3 L nasal cannula lungs clear
== END 2020-03-07 15:25 | disposition home health service (06) | DRG 291 ==
LOC: ANHED 17:31 → ANHIMU 23:34 → ANH2MED 03-02 14:35 → ANHIMU 03-08 15:22
PROVIDERS: Family Medicine; Admitting Provider Internal Medicine; Emergency Provider Emergency Medicine; Visit Provider Internal Medicine
DX: I50.33 Acute on chronic diastolic (congestive) heart failure (principal); J96.20 Acute and chronic respiratory failure, unspecified whether with hypoxia or hypercapnia; J44.1 Chronic obstructive pulmonary disease with (acute) exacerbation; I48.19 Other persistent atrial fibrillation; E11.9 Type 2 diabetes mellitus without complications; E05.90 Thyrotoxicosis, unspecified without thyrotoxic crisis or storm; G89.4 Chronic pain syndrome; F41.8 Other specified anxiety disorders; E78.2 Mixed hyperlipidemia; I25.10 Atherosclerotic heart disease of native coronary artery without angina pectoris; D63.8 Anemia in other chronic diseases classified elsewhere; R79.1 Abnormal coagulation profile; G47.33 Obstructive sleep apnea (adult) (pediatric); Z91.19 Patient's noncompliance with other medical treatment and regimen; Z87.891 Personal history of nicotine dependence; Z99.81 Dependence on supplemental oxygen; Z95.1 Presence of aortocoronary bypass graft
CPT/HCPCS: 36415; 36600; 71045; 80048; 80053; 80069; 81001; 82375; 82607; 82728; 82746; 82805; 83050; 83540; 83550; 83735; 83880; 84484; 85025; 85027; 85610; 85730; 93005; 94002; 94003; 94762; 96374; 96375; 99285; A9270; J1650; J1940; J2930

== ENCOUNTER 2020-03-17 10:25 | Inpatient (IN) | payer MEDICARE, MEDICAID, SELFPAY ==
[2020-03-17] VITALS (16 sets, daily range): BP systolic 95–127; BP diastolic 72–97; PULSE 80–103; RESP 13–23; TEMP 36.1–36.8; O2SAT 88–98; BMI 39.2
--- NOTE | ~2020-03-17 | XR_ITS ---
EXAMINATION: XR chest 1V portable INDICATION: Shortness of breath TECHNIQUE: Portable AP chest at 1511 hours COMPARISON: 03/17/2020 FINDINGS: Diffuse interstitial and airspace opacities persist without significant change. Small pleur al effusions are suggested. Cardiomegaly is noted. There is no pneumothorax. Median sternotomy wires are consistent with prior cardiac surgery. IMPRESSION: 1. Stable diffuse lung disease, consistent with pneumonia and/or pulmonary edema and/or acute respira tory distress syndrome (ARDS). 2. Cardiomegaly. Reviewed, dictated and finalized at location B. IMPRESSION: 1. Stable diffuse lung disease, consistent with pneumonia and/or pulmonary aden a and/or acute respiratory distress syndrome (ARDS). 2. Cardiomegaly.
--- NOTE | ~2020-03-17 | CT_ITS ---
EXAMINATION: CT brain wo con INDICATION: Altered mental status COMPARISON: 02/08/2020 TECHNIQUE: Standard unenhanced head CT. The dose-length product (DLP) was 681.00 mGy-cm. The mA was a djusted according to patient size. Iterative reconstruction technique was employed. FINDINGS: There is no acute intraparenchymal hemorrhage. No evidence of mass lesion. No evidence of a cute infarction. An old left temporoparietal infarct is noted. An arachnoid cyst is again seen anteri or to the left temporal lobe. There is mild periventricular and subcortical hypodensity probably rela kathia to small vessel ischemic disease. There is mild prominence of the sulci and ventricles related to cerebral atrophy. Intracranial calcified cerebral atherosclerosis is noted. There are no extra-axial collections. There is no mass effect or midline shift. The orbits and soft tissues are unremarkable. The visualized sinuses and mastoid air cells are well aerated. IMPRESSION: 1. Old left temporoparietal infarct without acute intracranial abnormality. 2. Age related findings. Reviewed, dictated and finalized at location A.
--- NOTE | ~2020-03-17 | XR_ITS ---
EXAMINATION: XR chest 1V portable INDICATION: Shortness of breath and confusion TECHNIQUE: Portable AP chest at 1234 hours COMPARISON: 03/03/2020 FINDINGS: There is stable cardiomegaly. Diffuse interstitial and airspace opacities persist with slig ht worsening in the right lung base. No pleural effusion or pneumothorax is identified. Median sterno angelia wires and mediastinal surgical clips are seen, likely from prior coronary artery bypass grafting . IMPRESSION: 1. Diffuse lung disease, consistent with pneumonia and/or pulmonary edema and/or acute respiratory di stress syndrome (ARDS). 2. Cardiomegaly. Reviewed, dictated and finalized at location A. IMPRESSION: 1. Diffuse lung disease, consistent with pneumonia and/or pulmonary edema and/o r acute respiratory distress syndrome (ARDS). 2. Cardiomegaly.
--- NOTE | 2020-03-17 10:34 | ECG_ITS ---
Measurements Intervals [place] Rate: 88 P: CT: 0 QRS: 79 QRSD: 89 T: 51 QT: 348 QTc: 423 Interpretive Statements ATRIAL FIBRILLATION BASELINE ARTIFACT- V5-V6 ABNORMAL ECG Electronically Signed On 03-17-2020 13:02:04 CDT by Charli Griffiths D.O.
--- NOTE | 2020-03-17 10:37 | ED.AMS ---
HPI - Altered Mental Status General Chief Complaint: Altered Mental Status Stated Complaint: SOB, ALTERED MENTAL STATUS Time Seen by Provider: 03/17/20 10:37 Source: patient and EMS Mode of arrival: EMS Limitations: no limitations History of Present Illness HPI narrative: Patient is a 59-year-old male with a history of atrial fibrillation, congestive heart failure, hypoxic respiratory failure who presents for evaluation of shortness of breath and altered mental status. Per EMS report, the patient's brother called to speak with him this morning and felt he was more confused from baseline, thus EMS was called and patient was transported to this facility. Patient at the time of EMS arrival oxygen saturations were 80%, patient was confused. Patient was placed on a nonrebreather as a tried initially to place nasal cannula oxygen without improvement in his oxygenation. At the time of assessment, patient is awake and alert to person, place and time. He is a bit foggy but I have treated this patient before, and he is able to provide some history and is denying any pain. He can identify his brother in the room Patient does have crackles bilaterally and coarse breath sounds. Patient states he has tried to be compliant with his medication but is very difficult. Patient's brother is stating that he does not seem to be doing well at home given multiple recent admissions. Related Data Home Medications Medication Instructions Recorded Confirmed albuterol sulfate 2 puff INHALATION Q4H PRN 01/31/20 02/28/20 warfarin 5 mg PO QMWF 01/31/20 02/28/20 alprazolam 0.5 mg PO TID 02/28/20 02/28/20 Allergies Allergy/AdvReac Type Severity Reaction Status Date / Time morphine AdvReac Unknown Increased Verified 03/17/20 10:42 HR Review of Systems Review of Systems: Narrative: CONSTITUTIONAL: Denies fever CARDIOVASCULAR: Denies chest pain RESPIRATORY: Denies cough, reports mild shortness of breath GASTROINTESTINAL: Denies abdominal pain SKIN: Denies rash MUSCULOSKELETAL: Denies back pain NEUROLOGIC: Denies headache [facility] Past Medical History Medical History CAD (coronary artery disease) CHF (congestive heart failure) Colon cancer screening Hx of migraines Surgical History Surgical History Hx of aortic valve repair Social History Social History Smoking packs per day: 1 Smoking cigarettes per day: 20.0 Years smoked: 30 Smoking pack-years: 30.00 Smoking status: Former smoker Second hand tobacco smoke exposure: No Smoking end date: 07/12/17 Alcohol intake: never Substance use: never Gender identity (if verbalized by the patient): Male Spiritual care concerns: No Exam Narrative: Exam Narrative: GENERAL: Awake, conversant, chronically ill-appearing HEAD: Normocephalic, atraumatic. EYES: PERRLA and EOMI. ENT: Nares clear, no rhinorrhea or epistaxis. Mucous membranes dry NECK: Supple. CHEST: Moderate respiratory distress, mild tachypnea, hypoxemia, abdominal retractions noted HEART: Regular rate, sinus rhythm ABDOMEN: Obese, mild distention, non tender EXTREMITIES: Normal range of motion. Bilateral pitting edema 2+ to the knees. SKIN: Warm, dry, no rash. NEURO:No focal deficits. Alert and oriented x3 Course Vital Signs Vital signs: Vital Signs Temperature 36.8 C 03/17/20 10:23 Pulse Rate 83 03/17/20 10:23 Respiratory Rate 18 03/17/20 10:23 Blood Pressure 112/72 03/17/20 10:23 Pulse Oximetry 88 L 03/17/20 10:23 Temperature 36.8 C 03/17/20 10:23 Pulse Rate 83 03/17/20 15:19 Respiratory Rate 15 03/17/20 15:19 Blood Pressure 95/76 L 03/17/20 15:19 Pulse Oximetry 92 03/17/20 15:19 MDM - Altered Mental Status MDM Narrative Medical decision making narrative: Patient presented for evaluation of altered ment
[2020-03-17 10:48] LABS: Glucose Point of Care 147 (65-105)
[2020-03-17 10:51] LABS: Basophils Absolute Auto 0.1 K/mm3 (0.0-0.1); Basophils Percent Auto 0.4 % (0.2-1.2); Eosinophils Absolute Auto 0.2 K/mm3 (0-0.3); Eosinophils Percent Auto 1.7 % (0-4.4); Hematocrit 27.3 % (42.0-52.0); Hemoglobin 7.5 g/dL (14.0-18.0); Immature Granulocyte Absolute 0.03 K/mm3 (0.00-0.031); Immature Granulocyte Percent A 0.3 % (0-0.5); Lymphocytes Absolute Auto 0.79 K/mm3 (0.9-3.2); Mean Corpuscular HGB Conc 27.5 g/dl (32-36); Mean Corpuscular Hemoglobin 25.3 pg (26-34); Mean Corpuscular Volume 91.9 fl (80-100); Mean Platelet Volume 8.7 fl (7.4-10.4); Monocytes Absolute Auto 0.9 K/mm3 (0.1-0.6); Monocytes Percent Auto 8.2 % (2.6-8.5); Neutrophils Absolute Auto 9.3 K/mm3 (1.3-6.7); Neutrophils Percent Auto 82.4 % (45.5-73.1); Platelet Count Result 203 k/mm3 (150-375); Red Blood Count 2.97 M/mm3 (4.6-6.20); Red Cell Distribution Width 17.9 % (11.5-14.5); White Blood Count 11.3 K/mm3 (4.5-10.0)
--- NOTE | 2020-03-17 10:59 | PCRCNOTE ---
ARRIVED TO DRAW THE ABG AND PT. WAS NOT IN THE ROOM.
[2020-03-17 11:03] LABS: Alanine Aminotransferase 20 U/L (4-50); Albumin Level 4.1 g/dL (3.5-5.1); Alkaline Phosphatase 107 U/L (38-126); Anion Gap 7 mmol/L (8-16); Aspartate Amino Transferase 18 U/L (17-59); Bilirubin,Total 0.6 mg/dL (0.2-1.3); Blood Urea Nitrogen 23 mg/dL (9-20); Calcium 8.6 mg/dL (8.4-10.2); Carbon Dioxide 37 mmol/L (22-30); Chloride 92 mmol/L (98-107); Estimated CRCL calculation 84 ml/min; Estimated Glomerular Filt Rate > 60; Glucose 145 mg/dL (75-110); Lactic Acid 1.1 mmol/L (0.7-2.1); Potassium 5.6 mmol/L (3.4-5.0); Sodium 136 mmol/L (137-145)
[2020-03-17 11:41] LABS: Alveolar/Arterial O2 Gradient 72.9 mmHg; Base Excess ABG 10.2 mEq/l (+/-2.0); Carboxyhemoglobin 1.7 % THb (0-2.0); Fractional Inspired Oxygen 32 %; HCO3 ABG 38.6 mEq/l (22.0-26.0); Methemoglobin ABG 0.4 %THb (0-1.5); Oxygen Content ABG 10.2 %vol (16.0-22.0); PO2 ABG 58.7 mmHg (80.0-100.0); PO2 FiO2 Ratio Arterial Blood 1.83 %; Reduced Hemoglobin 12.9 %THb (0-5.0); Total Hemoglobin 8.5 g/dL (12.0-18.0)
[2020-03-17 11:42] LABS: pH ABG 7.288 (7.350-7.450)
[2020-03-17 11:43] LABS: Oxygen Saturation ABG 85.7 % (95.0-100.0); PCO2 ABG 82.5 mmHg (35.0-45.0)
[2020-03-17 11:44] LABS: Device NASAL CANNULA; Modified Allen's Test Pass; Site Drawn LEFT RADIAL
[2020-03-17 12:01] LABS: Add Urine Microscopic? YES; Appearance Urine Clear (Clear); Bacteria Urine Trace /hpf; Bilirubin Urine Negative (Negative); Blood Urine Negative (Negative); Color Urine Yellow (Yellow); Glucose Urine UA Negative (Negative); Hyaline Casts Urine 15-19 /lpf; Ketones Urine Negative (Negative); Leukocyte Esterase Ur Trace LEU/UL (Negative); Mucus Urine Rare /lpf; Nitrate Urine Negative (Negative); Protein Urine 1+ mg/dL (Negative); Specific Grav Ur 1.024 (1.001-1.035); Squamous Epithelial Cell Urine Rare /hpf (Few); Urobilinogen Urine Negative mg/dL (<2.0); WBC Urine 0-3 /hpf
[2020-03-17 12:59] LABS: Troponin I < 0.012 ng/mL (0.000-0.034)
[2020-03-17 13:06] LABS: NT Pro B Type Natriuretic Pept 2730 PG/ML (5-100)
[2020-03-17] MEDS: FUROSEMIDE INJ 40 MG/4 ML VIAL 20 MG IV PUSH (13:23)
[2020-03-17 13:50] LABS: Alveolar/Arterial O2 Gradient 116.1 mmHg; Base Excess ABG 8.6 mEq/l (+/-2.0); Carboxyhemoglobin 1.5 % THb (0-2.0); Fractional Inspired Oxygen 40 %; HCO3 ABG 37.2 mEq/l (22.0-26.0); Methemoglobin ABG 0.3 %THb (0-1.5); Oxygen Content ABG 10.8 %vol (16.0-22.0); Oxygen Saturation ABG 91.6 % (95.0-100.0); Oxyhemoglobin 89.7 % THb (90.0-100.0); PO2 FiO2 Ratio Arterial Blood 1.83 %; Reduced Hemoglobin 8.5 %THb (0-5.0); Total Hemoglobin 8.5 g/dL (12.0-18.0)
[2020-03-17 13:51] LABS: PCO2 ABG 83.6 mmHg (35.0-45.0); pH ABG 7.266 (7.350-7.450)
[2020-03-17] MEDS: CALCIUM GLUC 2,000 MG/NS 100ML 2,000 MG/100 ML BAG 100 MG IVPB (13:51)
[2020-03-17 13:52] LABS: Device NON-INVASIVE VENT; Modified Allen's Test Pass; Non-Invasive Expiratory Pressure 5 CMH2O; Non-Invasive Inspiratory Pressure 15 CMH2O; Non-Invasive Vent Rate 16 /MIN; Site Drawn LEFT RADIAL
[2020-03-17 15:25] LABS: Troponin I < 0.012 ng/mL (0.000-0.034)
--- NOTE | 2020-03-17 16:23 | ADMGEN ---
This patient, John Peters, was admitted to Intensive Care Unit-2. Patient/family oriented to hospital policies and general routines including ID bracelet, bed and alarms, visiting hours, pain management, procedures, bathroom and other care routines, personal items, smoking policy, room service/diet, and visiting hours. Valuables list has been completed. Information on how to activate the Rapid Response Team has been discussed. Patient/Family are encouraged to report perceived risks to care and to ask questions if they do not understand what they are told or what they should do.
[2020-03-17 17:13] LABS: Alveolar/Arterial O2 Gradient 68.1 mmHg; Base Excess ABG 7.1 mEq/l (+/-2.0); Carboxyhemoglobin 1.4 % THb (0-2.0); Fractional Inspired Oxygen 30 %; HCO3 ABG 31.8 mEq/l (22.0-26.0); Methemoglobin ABG 0.4 %THb (0-1.5); Oxygen Content ABG 10.6 %vol (16.0-22.0); Oxygen Saturation ABG 97.2 % (95.0-100.0); Oxyhemoglobin 95.3 % THb (90.0-100.0); PCO2 ABG 46.7 mmHg (35.0-45.0); PO2 ABG 90.9 mmHg (80.0-100.0); PO2 FiO2 Ratio Arterial Blood 3.03 %; Reduced Hemoglobin 2.9 %THb (0-5.0); Site Drawn RIGHT RADIAL; Total Hemoglobin 7.8 g/dL (12.0-18.0); pH ABG 7.451 (7.350-7.450)
[2020-03-17 17:14] LABS: Device NON-INVASIVE VENT; Modified Allen's Test Pass; Non-Invasive Expiratory Pressure 10 CMH2O; Non-Invasive Inspiratory Pressure 20 CMH2O; Non-Invasive Vent Rate 20 /MIN
--- NOTE | 2020-03-17 18:30 | PM.IMHP ---
H&P: HPI History of Present Illness Date/Time: 03/17/20 17:30. Chief complaint: Altered mental status. Narrative: John Peters is a 59-year-old male with multiple medical problems including history of stroke, chronic atrial fibrillation, obstructive sleep apnea, chronic respiratory failure, type 2 diabetes mellitus, coronary artery disease, hypertension, and several other comorbidities who presented to the emergency department earlier this morning via EMS from home for evaluation of altered mental status. With his previous stroke he had global aphasia, however has improved markedly though with the BiPAP, mild hearing loss, and history of stroke it is difficult for him to understand everything that I am saying to him. As such, some of this medical history is supplemented via a review of his electronic medical records. He is known to myself and the hospitalist service and this will be his 3rd admission to us since January 31, 2020. At that time he was admitted for rhabdomyolysis, acute kidney injury, and atrial fibrillation with rapid ventricular response. With IV fluid rehydration he did develop some volume overload as well requiring diuresis. It is my understanding he was hospitalized at [facility] sometime thereafter before being readmitted to our facility on February 27 with acute on chronic respiratory failure and CHF exacerbation. According to documentation, he was approved for a trilogy unit at home and is my understanding that he had 1 provided to him on or shortly after discharge on March 07, 2020. He states compliance with the mask majority of the time, however admits that he frequently falls asleep in his recliner watching television and will not have the mask on during those times. In any regard, his brother was concerned after and our conversation this morning, apparently she on was saying some bizarre and nonsensical things. On EMS arrival his SpO2 was in the 80s and he was indeed confused. He was started on BiPAP with marked improvement in his ABGs. This evening when the BiPAP was removed for him to eat dinner, his oxygen saturations dipped into the 80s despite being on his usual 3 L nasal cannula and he was placed back on the BiPAP. It sounds as though he has chronic shortness of breath and orthopnea, spending a majority of time in his recliner. He has chronic lower extremity edema but he does not believe that is changed significantly. Will occasionally have a cough productive of dark brown/green phlegm and this does not seem to be a new finding. He has not had fever, chills, or sweats. He denies chest pain, palpitations, and pleuritic pain. No nausea or vomiting. He denies diarrhea and dysuria. Of note, it does not sound as though he is very compliant with his diet or medications at home and I think he does get a bit confused with regards to his medications ?I think I am a little bit dumb from my previous stroke.? Review of Systems Review of Systems: Narrative: Twelve systems were reviewed with pertinent positives and negatives as per HPI. Except as documented, all other systems were reviewed and are negative. [facility] Past Medical History Medical History (Updated 03/18/20 @ 00:15 by Bharati Tripathi PA-C) Cerebrovascular accident (~05/2018) With global aphasia, much improved. Chronic anemia Chronic atrial fibrillation With failed cardiac ablation and cardioversion on several occasions. On long-term Coumadin for stroke prophylaxis. [employer] is Dr. Vasquez at [facility] in [place]. Chronic respiratory failure with hypoxia, on home oxygen therapy 3 L nasal cannula with rest. 4 L bleed in at nighttime. Congestive heart failure Echocardiogram on 01/31/2020: 1. Left ventricular chamber dimension is mildly enlarged. 2. Left ventricular systolic function mildly reduced, estimated at 50-55%. 3. There is mildly increased left ventricular wall thickness. 4. The left ventricular diastolic function is abnormal. 5. Left atrial chamber di
[2020-03-17] MEDS: METOPROLOL TARTRATE 50 MG TAB 100 MG PO (22:17)
[2020-03-17 22:20] LABS: Hematocrit 25.5 % (42.0-52.0); Hemoglobin 7.1 g/dL (14.0-18.0)
[2020-03-17 22:30] LABS: INR 2.7; Prothrombin Time 27.8 Seconds (11.1-14.7)
[2020-03-17 22:31] LABS: Partial Thromboplastin Time 46.6 SECONDS (22.3-36.8)
[2020-03-17 22:34] LABS: Anion Gap 7 mmol/L (8-16); Blood Urea Nitrogen 21 mg/dL (9-20); Calcium 8.7 mg/dL (8.4-10.2); Carbon Dioxide 35 mmol/L (22-30); Chloride 93 mmol/L (98-107); Estimated CRCL calculation 106 ml/min; Estimated Glomerular Filt Rate > 60; Glucose 113 mg/dL (75-110); Magnesium 2.3 mg/dL (1.6-2.3); Potassium 4.7 mmol/L (3.4-5.0); Sodium 135 mmol/L (137-145)
[2020-03-17 22:51] LABS: T4 Thyroxine 4.17 ug/dL (5.53-11.0)
[2020-03-18] VITALS (23 sets, daily range): BP systolic 104–125; BP diastolic 56–85; PULSE 80–116; RESP 12–25; TEMP 35.9–36.8; O2SAT 94–100
[2020-03-18] MEDS: ALPRAZolam 0.5 MG TABLET PO ×4 (03:11→16:05)
[2020-03-18 04:30] LABS: Mean Corpuscular HGB Conc 28.3 g/dl (32-36); Mean Corpuscular Hemoglobin 25.6 pg (26-34); Mean Corpuscular Volume 90.2 fl (80-100); Platelet Count Result 175 k/mm3 (150-375); Red Blood Count 2.66 M/mm3 (4.6-6.20); Red Cell Distribution Width 17.8 % (11.5-14.5); White Blood Count 7.7 K/mm3 (4.5-10.0)
[2020-03-18 04:43] LABS: Anion Gap 4 mmol/L (8-16); Blood Urea Nitrogen 19 mg/dL (9-20); Calcium 8.4 mg/dL (8.4-10.2); Carbon Dioxide 39 mmol/L (22-30); Chloride 90 mmol/L (98-107); Estimated CRCL calculation 120 ml/min; Estimated Glomerular Filt Rate > 60; Glucose 159 mg/dL (75-110); Magnesium 2.4 mg/dL (1.6-2.3); Potassium 4.4 mmol/L (3.4-5.0); Sodium 133 mmol/L (137-145)
[2020-03-18 05:02] LABS: Hemoglobin 6.8 g/dL (14.0-18.0)
[2020-03-18] MEDS: BUMETANIDE INJ 1 MG/4 ML VIAL IV PUSH ×2 (09:06→16:05)
[2020-03-18] MEDS: ATORVASTATIN 20 MG TABLET PO (09:06)
[2020-03-18] MEDS: metOLazone 5 MG TABLET PO (09:06)
[2020-03-18] MEDS: ESCITALOPRAM OXALATE 5 MG TABLET PO (09:06)
[2020-03-18] MEDS: dilTIAZem HCL CD 180 MG CAP.ER.24H PO (09:07)
[2020-03-18] MEDS: ASPIRIN 81 MG CHEWABLE TABLET PO (10:08)
[2020-03-18] MEDS: METOPROLOL TARTRATE 50 MG TAB 100 MG PO ×2 (10:08→20:13)
[2020-03-18 11:39] LABS: SARS-CoV-2 RNA PCR Negative
--- NOTE | 2020-03-18 11:50 | PM.CNCAR ---
Assessment and Plan Assessment and plan (1) Chronic anemia: Code(s): D64.9 - Anemia, unspecified Status: Acute Assessment and Plan: his latest hemoglobin is 6.8, he is getting 1 unit of RBCs today (2) Obstructive sleep apnea: Code(s): G47.33 - Obstructive sleep apnea (adult) (pediatric) Status: Acute Assessment and Plan: currently on BiPAP, he seems to be responding better to erica (3) Chronic atrial fibrillation: Code(s): I48.20 - Chronic atrial fibrillation, unspecified Status: Acute Assessment and Plan: rate is well controlled continue with Cardizem He is on Coumadin INR is 2.7, okay to hold Coumadin due to bleeding, in case he had GI bleed, and could be resumed in 2 weeks if he has no more drop in his hemoglobin (4) Congestive heart failure: Code(s): I50.9 - Heart failure, unspecified Status: Acute Assessment and Plan: last echo showed EF 50%, with significant pulmonary hypertension due to sleep apnea, agree with diuresis, follow up input and outputs closely. (5) Metabolic encephalopathy: Code(s): G93.41 - Metabolic encephalopathy Status: Acute Assessment and Plan: He had respiratory acidosis which improved after he was placed on BiPAP (6) Acute and chronic respiratory failure with hypercapnia: Code(s): J96.22 - Acute and chronic respiratory failure with hypercapnia Status: Acute (7) Suspected 2019 novel coronavirus infection: Code(s): Z20.828 - Contact with and (suspected) exposure to other viral communicable diseases Status: Acute (8) Acute CHF (congestive heart failure): Qualifiers: Heart failure type: combined systolic and diastolic Qualified Code(s): I50.41 - Acute combined systolic (congestive) and diastolic (congestive) heart failure Code(s): I50.9 - Heart failure, unspecified Status: Acute Assessment and Plan: he has acute on chronic diastolic congestive heart failure, likely worsened by AFib and anemia, rate is well controlled continue diuresis, follow up input and outputs closely. Additional Plan Thank you for allowing me to participate in this patient's care, I will be following up with you. Please do not hesitate to call me for any other inquiry History of Present Illness History of Present Illness Consult date/time: 03/18/20 11:50 59 years old gentleman with multiple medical problems including diastolic congestive heart failure sleep apnea COPD, was brought to the hospital due to change in mental status and weakness and shortness of breath. Noted to have significant anemia and currently is getting blood transfusion he was in the hospital recently with the COPD exacerbation, according to his family he has been taking his medication at home but he had significant respiratory acidosis, improved with BiPAP. He has occasional cough no chest pain, [id number] leg swelling. He has been in the hospital multiple times with the respiratory failure. Last echocardiogram was done last admission showed EF 50% Reason For Visit: Altered mental status. Review of Systems Review of Systems: ROS unobtainable: Yes unobtainable due to medical condition and unobtainable due to mental status PMFSH Past Medical History Medical History (Updated 03/18/20 @ 00:15 by Bharati Tripathi PA-C) Cerebrovascular accident (~05/2018) With global aphasia, much improved. Chronic anemia Chronic atrial fibrillation With failed cardiac ablation and cardioversion on several occasions. On long-term Coumadin for stroke prophylaxis. 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 Chronic respiratory failure with hypoxia, on home oxygen therapy 3 L nasal cannula with rest. 4 L bleed in at nighttime. Congestive heart failure Echocardiogram on 01/31/2020: 1. Left ventricular chamber dimension is mildly enlarged. 2. Left ventricular systolic function mildly reduced, estima
--- NOTE | 2020-03-18 11:52 | P.PNIM_ITS ---
Progress Note: A&P Assessment and Plan (1) Acute and chronic respiratory failure with hypercapnia: Code(s): J96.22 - Acute and chronic respiratory failure with hypercapnia Status: Acute Assessment and Plan: Patient states he is compliant with the Trilogy but notes state he is intermittently compliant. Respiratory status better. Continue to wean Trilogy to being used at sleep. Once weaned to NC while awake, then wean down to his baseline 3 L nasal cannula. (2) Abnormal chest x-ray: Code(s): R93.89 - Abnormal findings on diagnostic imaging of other specified body structures Status: Acute Assessment and Plan: * Chest x-ray shows diffuse lung disease consistent with pneumonia and/or pulmonary edema and/or acute respiratory distress syndrome. * He has been started on empiric antibiotics for possible underlying pneumonia. * Continue isolation, pending SARS-CoV-2 by PCR * Could all be related to CHF. Continue Bumex IV. * Contract Attorney to see (3) Hyperkalemia: Code(s): E87.5 - Hyperkalemia Status: Acute Assessment and Plan: * Potassium has normalized with diuresis. * Spironolactone remains on hold (4) Metabolic encephalopathy: Code(s): G93.41 - Metabolic encephalopathy Status: Acute Assessment and Plan: * Secondary to hypercarbia * He appears back to his baseline. (5) Chronic atrial fibrillation: Code(s): I48.20 - Chronic atrial fibrillation, unspecified Status: Acute Assessment and Plan: * He is rate controlled on diltiazem and metoprolol. * Continue warfarin; INR is 2.7 yesterday * Daily INR. (6) Congestive heart failure: Code(s): I50.9 - Heart failure, unspecified Status: Acute Assessment and Plan: * Acute on Chronic Diastolic congestive heart failure * Likely due to intermittent compliance with medications and dietary indiscretion. * Continue IV Bumex; Continue metolazone. (7) Hyperthyroidism: Code(s): E05.90 - Thyrotoxicosis, unspecified without thyrotoxic crisis or storm Status: Acute Assessment and Plan: * TSH 46 in January so methimazole dose decreased from 20mg to 10mg. TSH dropped to 5.3 on 02/15/20 on the lower dose. * Methimazole 10 mg currently on hold. * TSH now 7.6 but no FT4. * Check FT4; continue to hold but would resume back at 10mg dose if FT4 okay. (8) Type 2 diabetes mellitus: Code(s): E11.9 - Type 2 diabetes mellitus without complications Status: Acute Assessment and Plan: * Well controlled with a recent hemoglobin A1c of 6.8%. * Hold metformin while hospitalized. * Continue sliding scale insulin, Accu-Cheks, and hypoglycemic protocol. (9) Obstructive sleep apnea: Code(s): G47.33 - Obstructive sleep apnea (adult) (pediatric) Status: Acute Assessment and Plan: * Currently on BiPAP * As above. (10) Chronic anemia: Code(s): D64.9 - Anemia, unspecified Status: Acute Assessment and Plan: * Hegb mostly in the 10 range in January. Hemoglobin has drifted down to 7-8
--- NOTE | 2020-03-18 11:52 | PM.IMPN ---
Progress Note: A&P Assessment and Plan (1) Acute and chronic respiratory failure with hypercapnia: Code(s): J96.22 - Acute and chronic respiratory failure with hypercapnia Status: Acute Assessment and Plan: Patient states he is compliant with the Trilogy but notes state he is intermittently compliant. Respiratory status better. Continue to wean Trilogy to being used at sleep. Once weaned to NC while awake, then wean down to his baseline 3 L nasal cannula. (2) Abnormal chest x-ray: Code(s): R93.89 - Abnormal findings on diagnostic imaging of other specified body structures Status: Acute Assessment and Plan: Chest x-ray shows diffuse lung disease consistent with pneumonia and/or pulmonary edema and/or acute respiratory distress syndrome. He has been started on empiric antibiotics for possible underlying pneumonia. Continue isolation, pending SARS-CoV-2 by PCR Could all be related to CHF. Continue Bumex IV. Merchandise For Res[employer] Purchasing Agent to see (3) Hyperkalemia: Code(s): E87.5 - Hyperkalemia Status: Acute Assessment and Plan: Potassium has normalized with diuresis. Spironolactone remains on hold (4) Metabolic encephalopathy: Code(s): G93.41 - Metabolic encephalopathy Status: Acute Assessment and Plan: Secondary to hypercarbia He appears back to his baseline. (5) Chronic atrial fibrillation: Code(s): I48.20 - Chronic atrial fibrillation, unspecified Status: Acute Assessment and Plan: He is rate controlled on diltiazem and metoprolol. Continue warfarin; INR is 2.7 yesterday Daily INR. (6) Congestive heart failure: Code(s): I50.9 - Heart failure, unspecified Status: Acute Assessment and Plan: Acute on Chronic Diastolic congestive heart failure Likely due to intermittent compliance with medications and dietary indiscretion. Continue IV Bumex; Continue metolazone. (7) Hyperthyroidism: Code(s): E05.90 - Thyrotoxicosis, unspecified without thyrotoxic crisis or storm Status: Acute Assessment and Plan: TSH 46 in January so methimazole dose decreased from 20mg to 10mg. TSH dropped to 5.3 on 02/15/20 on the lower dose. Methimazole 10 mg currently on hold. TSH now 7.6 but no FT4. Check FT4; continue to hold but would resume back at 10mg dose if FT4 okay. (8) Type 2 diabetes mellitus: Code(s): E11.9 - Type 2 diabetes mellitus without complications Status: Acute Assessment and Plan: Well controlled with a recent hemoglobin A1c of 6.8%. Hold metformin while hospitalized. Continue sliding scale insulin, Accu-Cheks, and hypoglycemic protocol. (9) Obstructive sleep apnea: Code(s): G47.33 - Obstructive sleep apnea (adult) (pediatric) Status: Acute Assessment and Plan: Currently on BiPAP As above. (10) Chronic anemia: Code(s): D64.9 - Anemia, unspecified Status: Acute Assessment and Plan: Hegb mostly in the 10 range in January. Hemoglobin has drifted down to 7-8 in February but no signs of acute blood loss. Iron studies showing saturation of 43%; B12 and Folate okay in February. Hgb 7.5 on admission but dropped to 6.8 this morning. Transfusion ordered. Will check stool guaiac; Hold Coumadin but not reverse yet. Subjective Date/time seen: 03/18/20 11:52 Interval history: 59yo male with history of stroke, chronic AFib, HERNNA an
--- NOTE | 2020-03-18 14:06 | PM.CNPUL ---
Assessment and Plan Assessment and plan (1) Acute and chronic respiratory failure with hypercapnia: Code(s): J96.22 - Acute and chronic respiratory failure with hypercapnia Status: Acute Assessment and Plan: Improved with biPAP 20/10 + 30%. He has poor compliance at home with naps throughout the day, not using the Trilogy NPPV provided Feb 28 after discharge. He uses it some, but not with all sleep. He also reports having O2 at home for 5-8 years, and uses 3 L/min. He has a pulmonary doctor in [place]. He may have overlap with COPD. There are no inhalers listed on home meds. CXR has diffuse markings, and appears to show pulmonary edema. He has a significant amount of leg edema, suggesting that this episode may be driven by a CHF exacerbation. Shortness of breath is worsened by his anemia, worse today and required transfusion. (2) Obstructive sleep apnea: Code(s): G47.33 - Obstructive sleep apnea (adult) (pediatric) Status: Acute Assessment and Plan: Split night test 08/21/2003 severe HERNAN AHI 120 and min sat 70%, optimal pressure 16 cm. not sure if he has had a more recent study; he now has a Trilogy device which is being used for chronic respiratory failure, so degree of HERNAN is not an issue. (3) Altered mental status: Qualifiers: Altered mental status type: transient alteration of awareness Qualified Code(s): R40.4 - Transient alteration of awareness Code(s): R41.82 - Altered mental status, unspecified Status: Acute Assessment and Plan: admitted with decreased LOC, improved with biPAP; Has had this experience before, has been found confused and incoherent. This is likely due to increased pCO2 from not using NPPV, exac CHF. (4) CHF (congestive heart failure): Qualifiers: Heart failure chronicity: unspecified Heart failure type: unspecified Qualified Code(s): I50.9 - Heart failure, unspecified Code(s): I50.9 - Heart failure, unspecified Status: Acute Assessment and Plan: diastolic CHF, CAD, h/o MV Ring replacement (5) Chronic, continuous use of opioids: Code(s): F11.90 - Opioid use, unspecified, uncomplicated Status: Acute Assessment and Plan: He is on Bethesda 5 mg QID and Xanax 0,5 mg TID; on these same doses at home; Seems to be anxious, may need more meds to prevent withdrawal. I think he may be under-reporting his home doses. Will add additional Xanax 0.25 Q 3 hours p.r.n. anxiety. In the big picture, avoiding benzodiazepines and opioids would benefit him in multiple ways including avoiding suppressing his respiratory drive and aggravating his hypercapnea. He gives a hx of possible bipolar disorder, may benefit from re-evaluation of his treatment. History of Present Illness History of Present Illness Consult date: 03/19/20 Requesting physician: Bharati Tripathi PA-C Reason for consult: other (hypercapnia, abnormal CXR) Chief complaint: Altered mental status. Narrative: NEW: John Peters is a 59 yo man admitted yesterday 03/17/2020 with acute and chronic respiratory failure with hypercapnia, who has been in the hospital several times over the last 6-7 weeks. He was admitted with altered mental status. He recently was started on a NPPV Trilogy for respiratory failure with hypercapnia, however he does not always wear it with sleep. He had a stroke which caused problems with memory and aphasia. He reported that he often sleeps in his chair, napping on and off in the day, without the Trilogy. His initial ABGs showed severe CO2 retention, ABG on Mar 17 pH 7.228 / pCO2 82.5 / pO2 58.7 / HCO3 38.6 /
--- NOTE | 2020-03-18 15:04 | PC.NURSE ---
This patient, John Peters, was received from ICU-02 on 03/18/20 at 1502 into room 203. Personal belongings list checked and signed. Patient/family oriented to unit policies and routines
--- NOTE | 2020-03-18 15:11 | PC.NURSE ---
This patient, John Peters, was transferred to [ imu 203] on 03/18/20 at 1500. Personal belongings sent with patient. Belongings list checked and signed with receiving [ bela snow rn]. Report given to [ bela snow rn]. Appropriate documentation sent with patient.
[2020-03-18 16:26] LABS: Glucose Point of Care 164 (65-105)
[2020-03-18 17:35] LABS: IFOB Positive Control Positive; Immunochemical Fecal Occult Bl Negative (N)
[2020-03-18 17:58] LABS: Glucose Point of Care 146 (65-105)
[2020-03-18] MEDS: ACETAMINOPHEN 325 MG TABLET PO (18:42)
[2020-03-18 19:57] LABS: Glucose Point of Care 127 (65-105)
[2020-03-18] MEDS: ALPRAZolam 0.25 MG TABLET PO (22:06)
[2020-03-19] VITALS (18 sets, daily range): BP systolic 114–128; BP diastolic 59–79; PULSE 71–102; RESP 18–27; TEMP 36.1–37; O2SAT 91–100
[2020-03-19] MEDS: ALPRAZolam 0.25 MG TABLET PO ×2 (04:00→20:52)
[2020-03-19 04:43] LABS: Hematocrit 27.5 % (42.0-52.0); Hemoglobin 7.7 g/dL (14.0-18.0); Mean Corpuscular Hemoglobin 25.2 pg (26-34); Mean Corpuscular Volume 89.9 fl (80-100); Platelet Count Result 167 k/mm3 (150-375); Red Blood Count 3.06 M/mm3 (4.6-6.20); Red Cell Distribution Width 17.2 % (11.5-14.5); White Blood Count 7.2 K/mm3 (4.5-10.0)
[2020-03-19 04:52] LABS: INR 1.7; Prothrombin Time 19.7 Seconds (11.1-14.7)
[2020-03-19 05:00] LABS: Albumin Level 3.6 g/dL (3.5-5.1); Anion Gap 6.99999 mmol/L (8-16); Blood Urea Nitrogen 25 mg/dL (9-20); Calcium 8.2 mg/dL (8.4-10.2); Carbon Dioxide > 40 mmol/L (22-30); Chloride 87 mmol/L (98-107); Estimated CRCL calculation 83 ml/min; Estimated Glomerular Filt Rate > 60; Glucose 188 mg/dL (75-110); Magnesium 2.1 mg/dL (1.6-2.3); Phosphorus 4.3 mg/dL (2.5-4.5); Potassium 3.9 mmol/L (3.4-5.0); Sodium 134 mmol/L (137-145)
[2020-03-19 05:32] LABS: Free T4 Free Thyroxine 0.48 ng/mL (0.78-2.19)
[2020-03-19] MEDS: dilTIAZem HCL CD 180 MG CAP.ER.24H PO (08:30)
[2020-03-19] MEDS: LIDOCAINE 5% PATCH 2 PATCH TRANSDERM (08:30)
[2020-03-19] MEDS: BUMETANIDE INJ 1 MG/4 ML VIAL IV PUSH (08:30)
[2020-03-19] MEDS: ESCITALOPRAM OXALATE 5 MG TABLET PO (08:31)
[2020-03-19] MEDS: ALPRAZolam 0.5 MG TABLET PO ×3 (08:31→17:10)
[2020-03-19] MEDS: ACETAMINOPHEN 325 MG TABLET PO ×3 (08:31→20:52)
[2020-03-19] MEDS: METOPROLOL TARTRATE 50 MG TAB 100 MG PO ×2 (08:31→20:53)
[2020-03-19] MEDS: ASPIRIN 81 MG CHEWABLE TABLET PO (08:31)
[2020-03-19] MEDS: ATORVASTATIN 20 MG TABLET PO (08:31)
[2020-03-19 08:44] LABS: Glucose Point of Care 159 (65-105)
[2020-03-19 13:18] LABS: Glucose Point of Care 128 (65-105)
--- NOTE | 2020-03-19 14:13 | PM.PNCARD ---
Progress Note: A&P Assessment and Plan (1) Congestive heart failure: Code(s): I50.9 - Heart failure, unspecified Status: Acute Assessment and Plan: Recent admission with CHF exacerbation. Now back with encephalopathy (Pco2 80 on admission). better on BiPAP He appears volume overloaded,with questionable compliance with meds Continue diuretics via IV while admitted. Will increase Bumex to 2 mg BID. Will also give dose of Metolazone (was discharged recently on Bi-weekly dosing of Metolazone) last echo showed EF 50%, with significant pulmonary hypertension due to sleep apnea Follow up input and outputs closely. (2) Chronic atrial fibrillation: Code(s): I48.20 - Chronic atrial fibrillation, unspecified Status: Acute Assessment and Plan: rate is well controlled continue with Cardizem and Metoprolol He is on Coumadin previously. Okay to hold Coumadin due to anemia. In case he had GI bleed, and could be resumed in 2 weeks if he has no more drop in his hemoglobin (3) Obstructive sleep apnea: Code(s): G47.33 - Obstructive sleep apnea (adult) (pediatric) Status: Acute Assessment and Plan: currently on BiPAP (4) Chronic anemia: Code(s): D64.9 - Anemia, unspecified Status: Acute Assessment and Plan: Hold Coumadin (5) Metabolic encephalopathy: Code(s): G93.41 - Metabolic encephalopathy Status: Acute Assessment and Plan: He had respiratory acidosis which improved after he was placed on BiPAP (6) Acute and chronic respiratory failure with hypercapnia: Code(s): J96.22 - Acute and chronic respiratory failure with hypercapnia Status: Acute Assessment and Plan: Pulmonary on board Subjective Date/time seen: 03/19/20 14:13 Breathing better. Leg edema better. Hg better since transfusion. His main concern now is back pain. He does not feel that he is getting enough pain medications. Review of Systems Review of Systems: All systems reviewed & are unremarkable except as noted in HPI and below Exam Narrative: Exam Narrative: Const: General: alert and awake;obese. Pt on BiPAP HENMT: Head: normal to inspection and atraumatic Ears: hearing grossly normal bilaterally Face and sinus: normal facial exam Eyes: General: appearance normal, both eyes and all related structures Pupils: Equal, round and reactive pupils present EOM: EOMs intact bilaterally Neck: Neck: normal visual inspection and no JVD Chest: Chest palpation & inspection: normal inspection of the chest Resp: Effort & Inspection: normal respiratory effort and no respiratory distress Auscultation: diminished lung sounds Cardio: Jugular venous distension: no JVD Rate: regular rate Heart sounds: S1 normal heart sound present, S2 normal heart sound present and no murmurs. +1-2 edema GI: Inspection: normal to inspection Auscultation: normal bowel sounds Skin: General skin exam: normal color Neuro: Cranial nerves: Yes Equal, round and reactive pupils present Objective Data Vital Signs Vital Signs: Vital Signs - 24 hr 03/18/20 16:00 03/18/20 18:00 03/18/20 18:51 Temperature 36.5 C 36.3 C L Pulse Rate 91 83 96 Respiratory Rate 18 18 Blood Pressure 110/56 L 116/64 Pulse Oximetry 98 98 03/18/20 20:00 03/18/20 20:13 03/18/20 21:23 Temperature Pulse Rate 88 85 80 Respiratory Rate 18 Blood Pressure Pulse Oximetry 98 03/18/20 23:11 03/18/20 23:30 03/19/20 00:00 Temperature 36.6 C Pulse Rate 87 85 76 Respiratory Rate 24 H 20 20 Blood Pressure 104/67 Pulse Oximetry 96 99 99 03/19/20 02:00 03/19/20 02:42 03/19/20 03:35 Temperature Pulse Rate 72 89 86 Respiratory Rate 25 H 25 H Blood Pressure Pulse Oximetry 96 96 03/19/20 04:00 03/19/20 05:58 03/19/20 08:00 Temperature 36.7 C 36.1 C L Pulse Rate 81 82 78 Respiratory Rate 22 H 18 Blood Pressure 114/73 118/78 Pulse Oximetry 96 100
--- NOTE | 2020-03-19 14:33 | P.PNIM_ITS ---
Progress Note: A&P Assessment and Plan (1) Acute and chronic respiratory failure with hypercapnia: Code(s): J96.22 - Acute and chronic respiratory failure with hypercapnia Status: Acute Assessment and Plan: Patient states he is compliant with the Trilogy but notes state he is intermittently compliant. Respiratory status better. Continue to wean Trilogy to being used at sleep. Once weaned to NC while awake, then wean down to his baseline 3 L nasal cannula. (2) Abnormal chest x-ray: Code(s): R93.89 - Abnormal findings on diagnostic imaging of other specified body structures Status: Acute Assessment and Plan: * Chest x-ray shows diffuse lung disease consistent with pneumonia and/or pulmonary edema and/or acute respiratory distress syndrome. * He has been started on empiric antibiotics for possible underlying pneumonia. SARS-CoV-2 by PCR negative * Could all be related to CHF. Continue Bumex IV. (3) Hyperkalemia: Code(s): E87.5 - Hyperkalemia Status: Acute Assessment and Plan: * Potassium has normalized with diuresis. * Spironolactone remains on hold (4) Metabolic encephalopathy: Code(s): G93.41 - Metabolic encephalopathy Status: Acute Assessment and Plan: * Secondary to hypercarbia * He appears back to his baseline. (5) Chronic atrial fibrillation: Code(s): I48.20 - Chronic atrial fibrillation, unspecified Status: Acute Assessment and Plan: * He is rate controlled on diltiazem and metoprolol. * Continue warfarin; INR is 1.7 today * Daily INR. (6) Congestive heart failure: Code(s): I50.9 - Heart failure, unspecified Status: Acute Assessment and Plan: * Acute on Chronic Diastolic congestive heart failure * Likely due to intermittent compliance with medications and dietary indiscretion. * Continue IV Bumex; Continue metolazone. (7) Hyperthyroidism: Code(s): E05.90 - Thyrotoxicosis, unspecified without thyrotoxic crisis or storm Status: Acute Assessment and Plan: * TSH 46 in January so methimazole dose decreased from 20mg to 10mg. TSH dropped to 5.3 on 02/15/20 on the lower dose. * Methimazole 10 mg currently on hold. * TSH now 7.6. * Check FT4; still low at 0.48 so will continue to hold (8) Type 2 diabetes mellitus: Code(s): E11.9 - Type 2 diabetes mellitus without complications Status: Acute Assessment and Plan: * Well controlled with a recent hemoglobin A1c of 6.8%. * Hold metformin while hospitalized. * Continue sliding scale insulin, Accu-Cheks, and hypoglycemic protocol. * FBS 188 today (9) Obstructive sleep apnea: Code(s): G47.33 - Obstructive sleep apnea (adult) (pediatric) Status: Acute Assessment and Plan: * Currently on BiPAP * As above. (10) Chronic anemia: Code(s): D64.9 - Anemia, unspecified Status: Acute Assessment and Plan: * Hegb mostly in the 10 range in January. Hemoglobin has drifted down to 7-8 in February but no signs of acute blood loss.
--- NOTE | 2020-03-19 14:33 | PM.IMPN ---
Progress Note: A&P Assessment and Plan (1) Acute and chronic respiratory failure with hypercapnia: Code(s): J96.22 - Acute and chronic respiratory failure with hypercapnia Status: Acute Assessment and Plan: Patient states he is compliant with the Trilogy but notes state he is intermittently compliant. Respiratory status better. Continue to wean Trilogy to being used at sleep. Once weaned to NC while awake, then wean down to his baseline 3 L nasal cannula. (2) Abnormal chest x-ray: Code(s): R93.89 - Abnormal findings on diagnostic imaging of other specified body structures Status: Acute Assessment and Plan: Chest x-ray shows diffuse lung disease consistent with pneumonia and/or pulmonary edema and/or acute respiratory distress syndrome. He has been started on empiric antibiotics for possible underlying pneumonia. SARS-CoV-2 by PCR negative Could all be related to CHF. Continue Bumex IV. (3) Hyperkalemia: Code(s): E87.5 - Hyperkalemia Status: Acute Assessment and Plan: Potassium has normalized with diuresis. Spironolactone remains on hold (4) Metabolic encephalopathy: Code(s): G93.41 - Metabolic encephalopathy Status: Acute Assessment and Plan: Secondary to hypercarbia He appears back to his baseline. (5) Chronic atrial fibrillation: Code(s): I48.20 - Chronic atrial fibrillation, unspecified Status: Acute Assessment and Plan: He is rate controlled on diltiazem and metoprolol. Continue warfarin; INR is 1.7 today Daily INR. (6) Congestive heart failure: Code(s): I50.9 - Heart failure, unspecified Status: Acute Assessment and Plan: Acute on Chronic Diastolic congestive heart failure Likely due to intermittent compliance with medications and dietary indiscretion. Continue IV Bumex; Continue metolazone. (7) Hyperthyroidism: Code(s): E05.90 - Thyrotoxicosis, unspecified without thyrotoxic crisis or storm Status: Acute Assessment and Plan: TSH 46 in January so methimazole dose decreased from 20mg to 10mg. TSH dropped to 5.3 on 02/15/20 on the lower dose. Methimazole 10 mg currently on hold. TSH now 7.6. Check FT4; still low at 0.48 so will continue to hold (8) Type 2 diabetes mellitus: Code(s): E11.9 - Type 2 diabetes mellitus without complications Status: Acute Assessment and Plan: Well controlled with a recent hemoglobin A1c of 6.8%. Hold metformin while hospitalized. Continue sliding scale insulin, Accu-Cheks, and hypoglycemic protocol. FBS 188 today (9) Obstructive sleep apnea: Code(s): G47.33 - Obstructive sleep apnea (adult) (pediatric) Status: Acute Assessment and Plan: Currently on BiPAP As above. (10) Chronic anemia: Code(s): D64.9 - Anemia, unspecified Status: Acute Assessment and Plan: Hegb mostly in the 10 range in January. Hemoglobin has drifted down to 7-8 in February but no signs of acute blood loss. Iron studies showing saturation of 43%; B12 and Folate okay in February. Hgb 7.5 on admission but dropped to 6.8 and now 7.7 after transfusion stool guaiac negative ; continue warfarin Subjective Date/time seen: 03/19/20 14:33 Interval history: Date of visit 03/19. 59yo male with history of stroke, chronic AFib, HERNAN and chronic respiratory failure here for acute respiratory
[2020-03-19] MEDS: metOLazone 5 MG TABLET PO (15:42)
[2020-03-19] MEDS: BUMETANIDE INJ 1 MG/4 ML VIAL 2 MG IV PUSH (17:09)
[2020-03-19 17:13] LABS: Glucose Point of Care 122 (65-105)
--- NOTE | 2020-03-19 18:12 | PC.NURSE ---
This patient, John Peters, was transferred to [facility] on 03/19/20 at 1812. Personal belongings sent with patient. Belongings list checked and signed with receiving. Report given to KENYA Rodriguez. Appropriate documentation sent with patient.
--- NOTE | 2020-03-19 18:31 | PC.NURSE ---
Received patient from IMU 203, IV intact.
[2020-03-20] VITALS (15 sets, daily range): BP systolic 100–114; BP diastolic 56–63; PULSE 67–97; RESP 16–24; TEMP 36.1–36.8; O2SAT 93–98
[2020-03-20 00:22] LABS: Glucose Point of Care 133 (65-105)
[2020-03-20 04:58] LABS: Basophils Percent Auto 0.6 % (0.2-1.2); Eosinophils Absolute Auto 0.3 K/mm3 (0-0.3); Eosinophils Percent Auto 3.9 % (0-4.4); Hematocrit 26.3 % (42.0-52.0); Hemoglobin 7.7 g/dL (14.0-18.0); Immature Granulocyte Absolute 0.02 K/mm3 (0.00-0.031); Immature Granulocyte Percent A 0.3 % (0-0.5); Lymphocytes Absolute Auto 1.01 K/mm3 (0.9-3.2); Lymphocytes Percent Auto 14.7 % (18.3-44.2); Mean Corpuscular HGB Conc 29.3 g/dl (32-36); Mean Corpuscular Hemoglobin 25.1 pg (26-34); Mean Corpuscular Volume 85.7 fl (80-100); Mean Platelet Volume 8.3 fl (7.4-10.4); Monocytes Absolute Auto 0.7 K/mm3 (0.1-0.6); Monocytes Percent Auto 9.9 % (2.6-8.5); Neutrophils Absolute Auto 4.8 K/mm3 (1.3-6.7); Neutrophils Percent Auto 70.6 % (45.5-73.1); Platelet Count Result 158 k/mm3 (150-375); Red Blood Count 3.07 M/mm3 (4.6-6.20); Red Cell Distribution Width 16.7 % (11.5-14.5); White Blood Count 6.9 K/mm3 (4.5-10.0)
[2020-03-20 05:08] LABS: INR 1.3; Prothrombin Time 15.8 Seconds (11.1-14.7)
[2020-03-20 05:15] LABS: Anion Gap 7.99999 mmol/L (8-16); Blood Urea Nitrogen 24 mg/dL (9-20); Calcium 8.2 mg/dL (8.4-10.2); Carbon Dioxide > 40 mmol/L (22-30); Chloride 83 mmol/L (98-107); Estimated CRCL calculation 101 ml/min; Estimated Glomerular Filt Rate > 60; Glucose 124 mg/dL (75-110); Potassium 3.3 mmol/L (3.4-5.0); Sodium 131 mmol/L (137-145)
[2020-03-20 05:55] LABS: Hypochromasia 2+ (NORMAL); Platelet Estimate Adequate (Adequate)
[2020-03-20 05:57] LABS: Microcytosis 1+ (NORMAL)
[2020-03-20 07:45] LABS: Glucose Point of Care 101 (65-105)
[2020-03-20] MEDS: POTASSIUM CHLORIDE 20 MEQ TABLET 40 MEQ PO ×2 (08:38→17:20)
[2020-03-20] MEDS: ATORVASTATIN 20 MG TABLET PO (08:39)
[2020-03-20] MEDS: ALPRAZolam 0.5 MG TABLET PO ×3 (08:39→16:46)
[2020-03-20] MEDS: ASPIRIN 81 MG CHEWABLE TABLET PO (08:39)
[2020-03-20] MEDS: BUMETANIDE INJ 1 MG/4 ML VIAL 2 MG IV PUSH ×2 (08:40→16:46)
[2020-03-20] MEDS: ESCITALOPRAM OXALATE 5 MG TABLET PO (08:40)
[2020-03-20] MEDS: LIDOCAINE 5% PATCH 2 PATCH TRANSDERM (08:40)
[2020-03-20] MEDS: dilTIAZem HCL CD 180 MG CAP.ER.24H PO (08:40)
[2020-03-20] MEDS: METOPROLOL TARTRATE 50 MG TAB 100 MG PO ×2 (08:41→21:02)
--- NOTE | 2020-03-20 09:38 | PM.PNCARD ---
Progress Note: A&P Assessment and Plan (1) Congestive heart failure: Code(s): I50.9 - Heart failure, unspecified Status: Acute Assessment and Plan: Recent admission with CHF exacerbation. Now back with encephalopathy (Pco2 80 on admission). better on BiPAP Exam and Chest X ray shows evidence of volume overloaded Diuresing well with Bumex. Bicarb going up, possible in part due to contraction alkalosis. Will add Acetazolamide 250 BID for 1-2 days. Continue Bumex IV while admitted. Continue Metolazone on Bi-weekly schedule last echo showed EF 50%, with significant pulmonary hypertension due to sleep apnea Follow up input and outputs closely. (2) Chronic atrial fibrillation: Code(s): I48.20 - Chronic atrial fibrillation, unspecified Status: Acute Assessment and Plan: rate is well controlled continue with Cardizem and Metoprolol He is on Coumadin. Okay to hold if needed due to anemia. In case he had GI bleed, and could be resumed in 2 weeks if he has no more drop in his hemoglobin (3) Obstructive sleep apnea: Code(s): G47.33 - Obstructive sleep apnea (adult) (pediatric) Status: Acute Assessment and Plan: currently on BiPAP (4) Chronic anemia: Code(s): D64.9 - Anemia, unspecified Status: Acute (5) Metabolic encephalopathy: Code(s): G93.41 - Metabolic encephalopathy Status: Acute Assessment and Plan: He had respiratory acidosis which improved after he was placed on BiPAP (6) Acute and chronic respiratory failure with hypercapnia: Code(s): J96.22 - Acute and chronic respiratory failure with hypercapnia Status: Acute Assessment and Plan: Pulmonary on board Additional Plan Thank you for allowing me to participate in this patient's care, I will be following up with you. Please do not hesitate to call me for any other inquiry Subjective Date/time seen: 03/20/20 09:38 Asks to get higher dose of the pain medication. Also asks if can get up to chair as staying in bed not helping his back pain. Review of Systems Review of Systems: All systems reviewed & are unremarkable except as noted in HPI and below ROS unobtainable: Yes unobtainable due to medical condition and unobtainable due to mental status Exam Narrative: Exam Narrative: Const: General: alert and awake;obese. Pt on BiPAP HENMT: Head: normal to inspection and atraumatic Ears: hearing grossly normal bilaterally Face and sinus: normal facial exam Eyes: General: appearance normal, both eyes and all related structures Pupils: Equal, round and reactive pupils present EOM: EOMs intact bilaterally Neck: Neck: normal visual inspection and no JVD Chest: Chest palpation & inspection: normal inspection of the chest Resp: Effort & Inspection: normal respiratory effort and no respiratory distress Auscultation: diminished lung sounds Cardio: Jugular venous distension: no JVD Rate: regular rate Heart sounds: S1 normal heart sound present, S2 normal heart sound present and no murmurs. +1-2 edema GI: Inspection: normal to inspection Auscultation: normal bowel sounds Skin: General skin exam: normal color Neuro: Cranial nerves: Yes Equal, round and reactive pupils present Objective Data Vital Signs Vital Signs: Vital Signs - 24 hr 03/19/20 10:00 03/19/20 12:00 03/19/20 14:00 Temperature 36.9 C Pulse Rate 76 76 71 Respiratory Rate 22 H Blood Pressure 128/79 Pulse Oximetry 95 03/19/20 14:30 03/19/20 16:00 03/19/20 17:55 Temperature 36.2 C L Pulse Rate 88 77 88 Respiratory Rate 24 H 20 Blood Pressure 122/59 L Pulse Oximetry 98 95 03/19/20 20:00 03/19/20 20:04 03/19/20 20:53 Temperature 37.0 C Pulse Rate 97 102 H 86 Respiratory Rate 18 Blood Pressure 121/73 Pulse Oximetry 91 03/19/20 22:50 03/20/20 00:00 03/20/20 02:00 Temperature 36.6 C Pulse Rate 89 75 82 Respiratory Rate 27 H 18 Blood Pressure 10
[2020-03-20] MEDS: acetaZOLAMIDE TAB 250 MG TABLET PO ×2 (10:26→16:47)
[2020-03-20 11:48] LABS: Glucose Point of Care 129 (65-105)
--- NOTE | 2020-03-20 14:47 | P.PNIM_ITS ---
Progress Note: A&P Assessment and Plan (1) Acute and chronic respiratory failure with hypercapnia: Code(s): J96.22 - Acute and chronic respiratory failure with hypercapnia Status: Acute Assessment and Plan: Patient states he is compliant with the Trilogy but notes state he is intermittently compliant. Respiratory status better. Continue to wean Trilogy to being used at sleep. Once weaned to NC while awake, then wean down to his baseline 3 L nasal cannula. (2) Abnormal chest x-ray: Code(s): R93.89 - Abnormal findings on diagnostic imaging of other specified body structures Status: Acute Assessment and Plan: * Chest x-ray shows diffuse lung disease consistent with pneumonia and/or pulmonary edema and/or acute respiratory distress syndrome most likely chf. * started on empiric antibiotics for possible underlying pneumonia.and have continued SARS-CoV-2 by PCR negative * Probably related to CHF. Continue Bumex IV. * repeat cxr am (3) Hyperkalemia: Code(s): E87.5 - Hyperkalemia Status: Acute Assessment and Plan: * Potassium has normalized with diuresis. * Spironolactone remains on hold (4) Metabolic encephalopathy: Code(s): G93.41 - Metabolic encephalopathy Status: Acute Assessment and Plan: * Secondary to hypercarbia * He appears back to his baseline. (5) Chronic atrial fibrillation: Code(s): I48.20 - Chronic atrial fibrillation, unspecified Status: Acute Assessment and Plan: * He is rate controlled on diltiazem and metoprolol. * warfarin held with anemia and to restart later per cardiology (6) Congestive heart failure: Code(s): I50.9 - Heart failure, unspecified Status: Acute Assessment and Plan: * Acute on Chronic Diastolic congestive heart failure * Likely due to intermittent compliance with medications and dietary indiscretion. * Continue IV Bumex; Continue metolazone., continues to diurese (7) Hyperthyroidism: Code(s): E05.90 - Thyrotoxicosis, unspecified without thyrotoxic crisis or storm Status: Acute Assessment and Plan: * TSH 46 in January so methimazole dose decreased from 20mg to 10mg. TSH dropped to 5.3 on 02/15/20 on the lower dose. * Methimazole 10 mg currently on hold. * TSH now 7.6. * Check FT4; still low at 0.48 so will continue to hold (8) Type 2 diabetes mellitus: Code(s): E11.9 - Type 2 diabetes mellitus without complications Status: Acute Assessment and Plan: * Well controlled with a recent hemoglobin A1c of 6.8%. * Hold metformin while hospitalized. * Continue sliding scale insulin, Accu-Cheks, and hypoglycemic protocol. * FBS 124 today (9) Obstructive sleep apnea: Code(s): G47.33 - Obstructive sleep apnea (adult) (pediatric) Status: Acute Assessment and Plan: * Currently on BiPAP(trilogy at home) * As above. (10) Chronic anemia: Code(s): D64.9 - Anemia, unspecified Status: Acute Assessment and Plan: * Hegb mostly in the 10 range in Ju
--- NOTE | 2020-03-20 14:47 | PM.IMPN ---
Progress Note: A&P Assessment and Plan (1) Acute and chronic respiratory failure with hypercapnia: Code(s): J96.22 - Acute and chronic respiratory failure with hypercapnia Status: Acute Assessment and Plan: Patient states he is compliant with the Trilogy but notes state he is intermittently compliant. Respiratory status better. Continue to wean Trilogy to being used at sleep. Once weaned to NC while awake, then wean down to his baseline 3 L nasal cannula. (2) Abnormal chest x-ray: Code(s): R93.89 - Abnormal findings on diagnostic imaging of other specified body structures Status: Acute Assessment and Plan: Chest x-ray shows diffuse lung disease consistent with pneumonia and/or pulmonary edema and/or acute respiratory distress syndrome most likely chf. started on empiric antibiotics for possible underlying pneumonia.and have continued SARS-CoV-2 by PCR negative Probably related to CHF. Continue Bumex IV. repeat cxr am (3) Hyperkalemia: Code(s): E87.5 - Hyperkalemia Status: Acute Assessment and Plan: Potassium has normalized with diuresis. Spironolactone remains on hold (4) Metabolic encephalopathy: Code(s): G93.41 - Metabolic encephalopathy Status: Acute Assessment and Plan: Secondary to hypercarbia He appears back to his baseline. (5) Chronic atrial fibrillation: Code(s): I48.20 - Chronic atrial fibrillation, unspecified Status: Acute Assessment and Plan: He is rate controlled on diltiazem and metoprolol. warfarin held with anemia and to restart later per cardiology (6) Congestive heart failure: Code(s): I50.9 - Heart failure, unspecified Status: Acute Assessment and Plan: Acute on Chronic Diastolic congestive heart failure Likely due to intermittent compliance with medications and dietary indiscretion. Continue IV Bumex; Continue metolazone., continues to diurese (7) Hyperthyroidism: Code(s): E05.90 - Thyrotoxicosis, unspecified without thyrotoxic crisis or storm Status: Acute Assessment and Plan: TSH 46 in January so methimazole dose decreased from 20mg to 10mg. TSH dropped to 5.3 on 02/15/20 on the lower dose. Methimazole 10 mg currently on hold. TSH now 7.6. Check FT4; still low at 0.48 so will continue to hold (8) Type 2 diabetes mellitus: Code(s): E11.9 - Type 2 diabetes mellitus without complications Status: Acute Assessment and Plan: Well controlled with a recent hemoglobin A1c of 6.8%. Hold metformin while hospitalized. Continue sliding scale insulin, Accu-Cheks, and hypoglycemic protocol. FBS 124 today (9) Obstructive sleep apnea: Code(s): G47.33 - Obstructive sleep apnea (adult) (pediatric) Status: Acute Assessment and Plan: Currently on BiPAP(trilogy at home) As above. (10) Chronic anemia: Code(s): D64.9 - Anemia, unspecified Status: Acute Assessment and Plan: Hegb mostly in the 10 range in January. Hemoglobin has drifted down to 7-8 in February but no signs of acute blood loss. Iron studies showing saturation of 43%; B12 and Folate okay in February. Hgb 7.5 on admission but dropped to 6.8 and now 7.7 after transfusion stool guaiac negative but holding warfarin Subjective Date/time seen: 03/20/20 14:47 Interval history: Date of visit 03/20. 59 yo male with his
[2020-03-20 16:29] LABS: Glucose Point of Care 145 (65-105)
--- NOTE | 2020-03-20 20:02 | PM.PNPUL ---
Progress Note: A&P Assessment and Plan (1) Acute and chronic respiratory failure with hypercapnia: Code(s): J96.22 - Acute and chronic respiratory failure with hypercapnia Status: Acute Assessment and Plan: Improved with biPAP 20/10 + 30%. He has poor compliance at home with naps throughout the day, not using the Trilogy NPPV provided Feb 28 after discharge. He uses it some, but not with all sleep. He also reports having O2 at home for 5-8 years, and uses 3 L/min. He has a pulmonary doctor in [place]. He may have overlap with COPD. There are no inhalers listed on home meds. CXR has diffuse markings, and appears to show pulmonary edema. He has a significant amount of leg edema, suggesting that this episode may be driven by a CHF exacerbation. Shortness of breath is worsened by his anemia, worse today and required transfusion. (2) Obstructive sleep apnea: Code(s): G47.33 - Obstructive sleep apnea (adult) (pediatric) Status: Acute Assessment and Plan: Split night test 08/21/2003 severe HERNAN AHI 120 and min sat 70%, optimal pressure 16 cm. not sure if he has had a more recent study; he now has a Trilogy device which is being used for chronic respiratory failure, so degree of HERNAN is not an issue. (3) Altered mental status: Qualifiers: Altered mental status type: transient alteration of awareness Qualified Code(s): R40.4 - Transient alteration of awareness Code(s): R41.82 - Altered mental status, unspecified Status: Acute Assessment and Plan: admitted with decreased LOC, improved with biPAP; Has had this experience before, has been found confused and incoherent. This is likely due to increased pCO2 from not using NPPV, exac CHF. (4) CHF (congestive heart failure): Qualifiers: Heart failure chronicity: unspecified Heart failure type: unspecified Qualified Code(s): I50.9 - Heart failure, unspecified Code(s): I50.9 - Heart failure, unspecified Status: Acute Assessment and Plan: diastolic CHF, CAD, h/o MV Ring replacement (5) Chronic, continuous use of opioids: Code(s): F11.90 - Opioid use, unspecified, uncomplicated Status: Acute Assessment and Plan: He is on [place] 5 mg QID and Xanax 0,5 mg TID; on these same doses at home; Seems to be anxious, may need more meds to prevent withdrawal. I think he may be under-reporting his home doses. Will add additional Xanax 0.25 Q 3 hours p.r.n. anxiety. In the big picture, avoiding benzodiazepines and opioids would benefit him in multiple ways including avoiding suppressing his respiratory drive and aggravating his hypercapnea. He gives a hx of possible bipolar disorder, may benefit from re-evaluation of his treatment. Subjective Date/time seen: 03/20/20 20:02 This 59 yo man is seen in follow up for acute on chronic resp failure, lower O2 needs, on Trilogy at night but was not compliant prior to this admission Review of Systems Gastrointestinal: Gastrointestinal: Denies abdominal pain Neurologic: Reports Abnormal speech present (slow, deliberate; not slurred. ) Exam Narrative: Exam Narrative: This is a pleasant 59 yo man, alert, has poor hearing. This is made worse by wearing BiPAP and the examiner wearing an N95 mask. He speaks deliberately, he is cooperative. Const: General: comfortable and no acute distress Eyes: General: appearance normal, both eyes and all related structures Neck: Lymphatic: lymphadenopathy not noted Resp: Effort & Inspection: normal respiratory effort Auscultation: diminished lung sounds (large man, seems larger than
[2020-03-20] MEDS: ACETAMINOPHEN 325 MG TABLET PO (21:02)
[2020-03-20] MEDS: ALPRAZolam 0.25 MG TABLET PO (21:02)
[2020-03-20 21:16] LABS: Glucose Point of Care 157 (65-105)
[2020-03-21] VITALS (13 sets, daily range): BP systolic 102–110; BP diastolic 52–65; PULSE 68–96; RESP 16–20; TEMP 35.9–37; O2SAT 93–99
[2020-03-21 05:28] LABS: Basophils Absolute Auto 0.1 K/mm3 (0.0-0.1); Basophils Percent Auto 0.9 % (0.2-1.2); Eosinophils Absolute Auto 0.4 K/mm3 (0-0.3); Eosinophils Percent Auto 5.8 % (0-4.4); Hematocrit 29.3 % (42.0-52.0); Hemoglobin 8.4 g/dL (14.0-18.0); Immature Granulocyte Absolute 0.02 K/mm3 (0.00-0.031); Immature Granulocyte Percent A 0.3 % (0-0.5); Lymphocytes Absolute Auto 1.05 K/mm3 (0.9-3.2); Lymphocytes Percent Auto 16.5 % (18.3-44.2); Mean Corpuscular HGB Conc 28.7 g/dl (32-36); Mean Corpuscular Hemoglobin 24.9 pg (26-34); Mean Corpuscular Volume 86.7 fl (80-100); Mean Platelet Volume 9.1 fl (7.4-10.4); Monocytes Absolute Auto 0.7 K/mm3 (0.1-0.6); Monocytes Percent Auto 11.7 % (2.6-8.5); Neutrophils Absolute Auto 4.1 K/mm3 (1.3-6.7); Neutrophils Percent Auto 64.8 % (45.5-73.1); Platelet Count Result 198 k/mm3 (150-375); Red Blood Count 3.38 M/mm3 (4.6-6.20); Red Cell Distribution Width 16.7 % (11.5-14.5); White Blood Count 6.4 K/mm3 (4.5-10.0)
[2020-03-21 05:45] LABS: Anion Gap 8 mmol/L (8-16); Blood Urea Nitrogen 23 mg/dL (9-20); Calcium 8.6 mg/dL (8.4-10.2); Carbon Dioxide 37 mmol/L (22-30); Chloride 87 mmol/L (98-107); Estimated CRCL calculation 84 ml/min; Estimated Glomerular Filt Rate > 60; Glucose 127 mg/dL (75-110); Potassium 3.6 mmol/L (3.4-5.0); Sodium 132 mmol/L (137-145)
[2020-03-21] MEDS: FLUTICASONE PROPIONATE 0.05% NA SPR 16 GM BTL (*BKC) 2 SPRAY NASAL (08:12)
[2020-03-21] MEDS: ASPIRIN 81 MG CHEWABLE TABLET PO (08:12)
[2020-03-21] MEDS: ALPRAZolam 0.5 MG TABLET PO ×3 (08:12→16:51)
[2020-03-21] MEDS: dilTIAZem HCL CD 180 MG CAP.ER.24H PO (08:13)
[2020-03-21] MEDS: metOLazone 5 MG TABLET PO (08:13)
[2020-03-21] MEDS: acetaZOLAMIDE TAB 250 MG TABLET PO ×2 (08:13→16:50)
[2020-03-21] MEDS: ESCITALOPRAM OXALATE 5 MG TABLET PO (08:13)
[2020-03-21] MEDS: ATORVASTATIN 20 MG TABLET PO (08:13)
[2020-03-21] MEDS: METOPROLOL TARTRATE 50 MG TAB 100 MG PO ×2 (08:13→20:32)
[2020-03-21] MEDS: LIDOCAINE 5% PATCH 2 PATCH TRANSDERM (08:14)
[2020-03-21] MEDS: BUMETANIDE INJ 1 MG/4 ML VIAL 2 MG IV PUSH ×2 (08:14→16:51)
--- NOTE | 2020-03-21 13:42 | PM.PNCARD ---
Progress Note: A&P Assessment and Plan (1) Congestive heart failure: Code(s): I50.9 - Heart failure, unspecified Status: Acute Assessment and Plan: Recent admission with CHF exacerbation. Now back with encephalopathy (Pco2 80 on admission). better on BiPAP Exam and Chest X ray shows evidence of volume overloaded Diuresing well with Bumex. Bicarb going up, possible in part due to contraction alkalosis. Will add Acetazolamide 250 BID for 1-2 days. Continue Bumex IV while admitted. Continue Metolazone on Bi-weekly schedule last echo showed EF 50%, with significant pulmonary hypertension due to sleep apnea Follow up input and outputs closely. (2) Chronic atrial fibrillation: Code(s): I48.20 - Chronic atrial fibrillation, unspecified Status: Acute Assessment and Plan: rate is well controlled continue with Cardizem and Metoprolol He is on Coumadin. Okay to hold if needed due to anemia. In case he had GI bleed, and could be resumed in 2 weeks if he has no more drop in his hemoglobin (3) Obstructive sleep apnea: Code(s): G47.33 - Obstructive sleep apnea (adult) (pediatric) Status: Acute Assessment and Plan: currently on BiPAP (4) Chronic anemia: Code(s): D64.9 - Anemia, unspecified Status: Acute (5) Metabolic encephalopathy: Code(s): G93.41 - Metabolic encephalopathy Status: Acute Assessment and Plan: He had respiratory acidosis which improved after he was placed on BiPAP (6) Acute and chronic respiratory failure with hypercapnia: Code(s): J96.22 - Acute and chronic respiratory failure with hypercapnia Status: Acute Assessment and Plan: Pulmonary on board Subjective Date/time seen: 03/21/20 13:42 he feels slightly better today, shortness of breath is better, still with some leg swelling but seems to be slightly better today no chest pain Exam Narrative: Exam Narrative: Const: General: alert and awake;obese. Pt on BiPAP HENMT: Head: normal to inspection and atraumatic Ears: hearing grossly normal bilaterally Face and sinus: normal facial exam Eyes: General: appearance normal, both eyes and all related structures Pupils: Equal, round and reactive pupils present EOM: EOMs intact bilaterally Neck: Neck: normal visual inspection and no JVD Chest: Chest palpation & inspection: normal inspection of the chest Resp: Effort & Inspection: normal respiratory effort and no respiratory distress Auscultation: diminished lung sounds Cardio: Jugular venous distension: no JVD Rate: regular rate Heart sounds: S1 normal heart sound present, S2 normal heart sound present and no murmurs. +1 edema GI: Inspection: normal to inspection Auscultation: normal bowel sounds Skin: General skin exam: normal color Neuro: Cranial nerves: Yes Equal, round and reactive pupils present Objective Data Vital Signs Vital Signs: Vital Signs - 24 hr 03/20/20 15:01 03/20/20 16:00 03/20/20 20:00 Temperature 36.8 C Pulse Rate 67 95 Respiratory Rate 18 Blood Pressure 100/56 L Pulse Oximetry 93 96 03/20/20 20:13 03/20/20 20:31 03/20/20 21:02 Temperature 36.8 C Pulse Rate 85 84 76 Respiratory Rate 16 20 Blood Pressure 110/59 L Pulse Oximetry 98 97 03/20/20 23:36 03/21/20 00:00 03/21/20 02:00 Temperature 36.9 C Pulse Rate 75 68 80 Respiratory Rate 22 H 18 Blood Pressure 105/60 Pulse Oximetry 98 98 03/21/20 04:00 03/21/20 05:00 03/21/20 08:00 Temperature 37.0 C 36.1 C L Pulse Rate 73 88 86 Respiratory Rate 18 20 Blood Pressure 110/64 102/59 L Pulse Oximetry 99 99 03/21/20 08:13 03/21/20 10:45 03/21/20 11:05 Temperature Pulse Rate 88 Respiratory Rate Blood Pressure Pulse Oximetry 98 94 03/21/20 12:00 Temperature Pulse Rate 78 Respiratory Rate Blood Pressure Pulse Oximetry Intake/Output Intake/Output: Intake & Output 03/18/20 03/19/20
[2020-03-21 14:16] LABS: Glucose Point of Care 141 (65-105)
[2020-03-21 14:16] LABS: Glucose Point of Care 125 (65-105)
--- NOTE | 2020-03-21 18:10 | P.PNIM_ITS ---
Progress Note: A&P Assessment and Plan (1) Acute and chronic respiratory failure with hypercapnia: Code(s): J96.22 - Acute and chronic respiratory failure with hypercapnia Status: Acute Assessment and Plan: Patient states he is compliant with the Trilogy but notes state he is intermittently compliant. Respiratory status better. Continue to wear Trilogy to being used at sleep. weaned to NC while awake, and weaned down to his baseline 3 L nasal cannula. (2) Abnormal chest x-ray: Code(s): R93.89 - Abnormal findings on diagnostic imaging of other specified body structures Status: Acute Assessment and Plan: * Chest x-ray shows diffuse lung disease consistent with pneumonia and/or pulmonary edema and/or acute respiratory distress syndrome most likely chf. * started on empiric antibiotics for possible underlying pneumonia.and have continued SARS-CoV-2 by PCR negative * Probably related to CHF. Continue Bumex IV. * repeat cxr today no real change (3) Hyperkalemia: Code(s): E87.5 - Hyperkalemia Status: Acute Assessment and Plan: * Potassium has normalized with diuresis and have had to replace. * Spironolactone remains on hold (4) Metabolic encephalopathy: Code(s): G93.41 - Metabolic encephalopathy Status: Acute Assessment and Plan: * Secondary to hypercarbia * He appears back to his baseline. (5) Chronic atrial fibrillation: Code(s): I48.20 - Chronic atrial fibrillation, unspecified Status: Acute Assessment and Plan: * He is rate controlled on diltiazem and metoprolol. * warfarin held with anemia and to restart later per cardiology (6) Congestive heart failure: Code(s): I50.9 - Heart failure, unspecified Status: Acute Assessment and Plan: * Acute on Chronic Diastolic congestive heart failure * Likely due to intermittent compliance with medications and dietary indis cretion. * Continue IV Bumex; Continue metolazone., continues to diurese (7) Hyperthyroidism: Code(s): E05.90 - Thyrotoxicosis, unspecified without thyrotoxic crisis or storm Status: Acute Assessment and Plan: * TSH 46 in January so methimazole dose decreased from 20mg to 10mg. TSH dropped to 5.3 on 02/15/20 on the lower dose. * Methimazole 10 mg currently on hold. * TSH now 7.6. * Check FT4; still low at 0.48 so will continue to hold (8) Type 2 diabetes mellitus: Code(s): E11.9 - Type 2 diabetes mellitus without complications Status: Acute Assessment and Plan: * Well controlled with a recent hemoglobin A1c of 6.8%. * Hold metformin while hospitalized. * Continue sliding scale insulin, Accu-Cheks, and hypoglycemic protocol. * FBS 127 today (9) Obstructive sleep apnea: Code(s): G47.33 - Obstructive sleep apnea (adult) (pediatric) Status: Acute Assessment and Plan: * Currently on BiPAP(trilogy at home) * As above. (10) Chronic anemia: Code(s): D64.9 - Anemia, unspecified Status: Acute Assessment and Plan:
--- NOTE | 2020-03-21 18:10 | PM.IMPN ---
Progress Note: A&P Assessment and Plan (1) Acute and chronic respiratory failure with hypercapnia: Code(s): J96.22 - Acute and chronic respiratory failure with hypercapnia Status: Acute Assessment and Plan: Patient states he is compliant with the Trilogy but notes state he is intermittently compliant. Respiratory status better. Continue to wear Trilogy to being used at sleep. weaned to NC while awake, and weaned down to his baseline 3 L nasal cannula. (2) Abnormal chest x-ray: Code(s): R93.89 - Abnormal findings on diagnostic imaging of other specified body structures Status: Acute Assessment and Plan: Chest x-ray shows diffuse lung disease consistent with pneumonia and/or pulmonary edema and/or acute respiratory distress syndrome most likely chf. started on empiric antibiotics for possible underlying pneumonia.and have continued SARS-CoV-2 by PCR negative Probably related to CHF. Continue Bumex IV. repeat cxr today no real change (3) Hyperkalemia: Code(s): E87.5 - Hyperkalemia Status: Acute Assessment and Plan: Potassium has normalized with diuresis and have had to replace. Spironolactone remains on hold (4) Metabolic encephalopathy: Code(s): G93.41 - Metabolic encephalopathy Status: Acute Assessment and Plan: Secondary to hypercarbia He appears back to his baseline. (5) Chronic atrial fibrillation: Code(s): I48.20 - Chronic atrial fibrillation, unspecified Status: Acute Assessment and Plan: He is rate controlled on diltiazem and metoprolol. warfarin held with anemia and to restart later per cardiology (6) Congestive heart failure: Code(s): I50.9 - Heart failure, unspecified Status: Acute Assessment and Plan: Acute on Chronic Diastolic congestive heart failure Likely due to intermittent compliance with medications and dietary indiscretion. Continue IV Bumex; Continue metolazone., continues to diurese (7) Hyperthyroidism: Code(s): E05.90 - Thyrotoxicosis, unspecified without thyrotoxic crisis or storm Status: Acute Assessment and Plan: TSH 46 in January so methimazole dose decreased from 20mg to 10mg. TSH dropped to 5.3 on 02/15/20 on the lower dose. Methimazole 10 mg currently on hold. TSH now 7.6. Check FT4; still low at 0.48 so will continue to hold (8) Type 2 diabetes mellitus: Code(s): E11.9 - Type 2 diabetes mellitus without complications Status: Acute Assessment and Plan: Well controlled with a recent hemoglobin A1c of 6.8%. Hold metformin while hospitalized. Continue sliding scale insulin, Accu-Cheks, and hypoglycemic protocol. FBS 127 today (9) Obstructive sleep apnea: Code(s): G47.33 - Obstructive sleep apnea (adult) (pediatric) Status: Acute Assessment and Plan: Currently on BiPAP(trilogy at home) As above. (10) Chronic anemia: Code(s): D64.9 - Anemia, unspecified Status: Acute Assessment and Plan: Hegb mostly in the 10 range in January. Hemoglobin has drifted down to 7-8 in February but no signs of acute blood loss. Iron studies showing saturation of 43%; B12 and Folate okay in February. Hgb 7.5 on admission but dropped to 6.8 and now 8.4 today stool guaiac negative but holding warfarin Subjective Date/time seen: 03/21/20 18:10 Interval history: Date of visit
[2020-03-21 19:23] LABS: Glucose Point of Care 135 (65-105)
[2020-03-21] MEDS: POTASSIUM CHLORIDE 20 MEQ TABLET 40 MEQ PO (20:33)
[2020-03-22] VITALS (12 sets, daily range): BP systolic 99–106; BP diastolic 62–70; PULSE 64–94; RESP 16–22; TEMP 36.7–37.1; O2SAT 92–98
[2020-03-22 02:43] LABS: Glucose Point of Care 160 (65-105)
[2020-03-22 05:05] LABS: Basophils Absolute Auto 0.1 K/mm3 (0.0-0.1); Basophils Percent Auto 0.5 % (0.2-1.2); Eosinophils Absolute Auto 0.5 K/mm3 (0-0.3); Eosinophils Percent Auto 5.3 % (0-4.4); Hematocrit 31.6 % (42.0-52.0); Hemoglobin 9.3 g/dL (14.0-18.0); Immature Granulocyte Absolute 0.03 K/mm3 (0.00-0.031); Immature Granulocyte Percent A 0.3 % (0-0.5); Lymphocytes Absolute Auto 0.93 K/mm3 (0.9-3.2); Mean Corpuscular HGB Conc 29.4 g/dl (32-36); Mean Corpuscular Hemoglobin 25.6 pg (26-34); Mean Corpuscular Volume 87.1 fl (80-100); Mean Platelet Volume 9.1 fl (7.4-10.4); Monocytes Absolute Auto 1.2 K/mm3 (0.1-0.6); Monocytes Percent Auto 12.5 % (2.6-8.5); Neutrophils Absolute Auto 6.6 K/mm3 (1.3-6.7); Neutrophils Percent Auto 71.4 % (45.5-73.1); Platelet Count Result 226 k/mm3 (150-375); Red Blood Count 3.63 M/mm3 (4.6-6.20); Red Cell Distribution Width 16.5 % (11.5-14.5); White Blood Count 9.3 K/mm3 (4.5-10.0)
[2020-03-22 05:32] LABS: Anion Gap 11 mmol/L (8-16); Blood Urea Nitrogen 31 mg/dL (9-20); Carbon Dioxide 35 mmol/L (22-30); Chloride 87 mmol/L (98-107); Estimated CRCL calculation 75 ml/min; Estimated Glomerular Filt Rate > 60; Glucose 140 mg/dL (75-110); Potassium 3.6 mmol/L (3.4-5.0); Sodium 133 mmol/L (137-145)
[2020-03-22] MEDS: FLUTICASONE PROPIONATE 0.05% NA SPR 16 GM BTL (*BKC) 2 SPRAY NASAL (08:18)
[2020-03-22] MEDS: METOPROLOL TARTRATE 50 MG TAB 100 MG PO (08:19)
[2020-03-22] MEDS: ASPIRIN 81 MG CHEWABLE TABLET PO (08:19)
[2020-03-22] MEDS: LIDOCAINE 5% PATCH 2 PATCH TRANSDERM (08:19)
[2020-03-22] MEDS: BUMETANIDE INJ 1 MG/4 ML VIAL 2 MG IV PUSH (08:19)
[2020-03-22] MEDS: dilTIAZem HCL CD 180 MG CAP.ER.24H PO (08:19)
[2020-03-22] MEDS: ESCITALOPRAM OXALATE 5 MG TABLET PO (08:19)
[2020-03-22] MEDS: ATORVASTATIN 20 MG TABLET PO (08:19)
[2020-03-22] MEDS: acetaZOLAMIDE TAB 250 MG TABLET PO (08:19)
[2020-03-22] MEDS: ALPRAZolam 0.5 MG TABLET PO ×2 (08:30→12:43)
[2020-03-22 09:27] LABS: Glucose Point of Care 147 (65-105)
--- NOTE | 2020-03-22 09:29 | PM.PNCARD ---
Progress Note: A&P Assessment and Plan (1) Congestive heart failure: Code(s): I50.9 - Heart failure, unspecified Status: Acute Assessment and Plan: Recent admission with CHF exacerbation. Now back with encephalopathy (Pco2 80 on admission). better on BiPAP Exam and Chest X ray shows evidence of volume overloaded Diuresing well with Bumex. Bicarb going up, possible in part due to contraction alkalosis. Will add Acetazolamide 250 BID for 1-2 days. Continue Bumex IV while admitted. Continue Metolazone on Bi-weekly schedule last echo showed EF 50%, with significant pulmonary hypertension due to sleep apnea Follow up input and outputs closely. (2) Chronic atrial fibrillation: Code(s): I48.20 - Chronic atrial fibrillation, unspecified Status: Acute Assessment and Plan: rate is well controlled continue with Cardizem and Metoprolol (3) Obstructive sleep apnea: Code(s): G47.33 - Obstructive sleep apnea (adult) (pediatric) Status: Acute (4) Chronic anemia: Code(s): D64.9 - Anemia, unspecified Status: Acute (5) Type 2 diabetes mellitus: Code(s): E11.9 - Type 2 diabetes mellitus without complications Status: Acute (6) Metabolic encephalopathy: Code(s): G93.41 - Metabolic encephalopathy Status: Acute Assessment and Plan: He had respiratory acidosis which improved after he was placed on BiPAP (7) Acute and chronic respiratory failure with hypercapnia: Code(s): J96.22 - Acute and chronic respiratory failure with hypercapnia Status: Acute Subjective Date/time seen: 03/22/20 09:29 Pt feels fine today. No CP, SOB . Little sleepy. Pt was seen and examined, chart reviewed. Review of Systems Review of Systems: All systems reviewed & are unremarkable except as noted in HPI and below Constitutional: Constitutional: Reports as per HPI Eyes: Eyes: Reports as per HPI ENT: Reports system reviewed and no additional complaints, except as documented and Reports as per HPI Cardiovascular: Cardiovascular: Reports as per HPI Respiratory: Respiratory: Reports as per HPI Gastrointestinal: Gastrointestinal: Reports as per HPI Genitourinary: Genitourinary: Reports as per HPI Musculoskeletal: Musculoskeletal: Reports as per HPI Exam Const: General: no acute distress Nutritional Appearance: well nourished Orientation/consciousness: patient oriented x3 HENMT: Head: normal to inspection and atraumatic Ears: hearing grossly normal bilaterally Face and sinus: normal facial exam Eyes: General: appearance normal, both eyes and all related structures Pupils: Equal, round and reactive pupils present EOM: EOMs intact bilaterally Neck: Neck: supple Chest: Chest palpation & inspection: normal inspection of the chest Resp: Effort & Inspection: normal respiratory effort and no respiratory distress Auscultation: clear to auscultation bilaterally Cardio: Jugular venous distension: no JVD Rate: regular rate Heart sounds: S1 normal heart sound present, S2 normal heart sound present and no murmurs Peripheral pulses: Peripheral pulses 2+ throughout GI: GI Palp: No abdominal tenderness Auscultation: normal bowel sounds Skin: General skin exam: normal color Neuro: General: patient oriented x3 Cranial nerves: Yes Equal, round and reactive pupils present Extrem: General: normal to inspection and no clubbing, cyanosis or edema Objective Data Vital Signs Vital Signs: Vital Signs - 24 hr 03/21/20 10:45 03/21/20 11:05 03/21/20 12:00 Temperature 35.9 C L Pulse Rate 78 Respiratory Rate 20 Blood Pressure 102/52 L Pulse Oximetry 98 94 99 03/21/20 16:00 03/21/20 20:00 03/21/20 20:32 Temperature 36.0 C L 36.6 C Pulse Rate 80 78 78 Respiratory Rate 20 16 Blood Pressure 109/61 106/65 Pulse Oximetry 95 93 03/21/20 22:45 03/22/20 00:00 03/22/20 01:41 Temperature Pulse Rate 77 77 72 Respiratory Rate 20 20
[2020-03-22 11:49] LABS: Glucose Point of Care 133 (65-105)
[2020-03-22 15:54] LABS: Glucose Point of Care 149 (65-105)
--- NOTE | 2020-03-23 17:43 | P.DS_ITS ---
DS: Admitting Diagnosis Admitting Diagnosis Admitting Diagnosis: Hypercarbic hypoxemic respiratory failure,AMS,ARDS DS: Discharge Diagnosis Discharge Diagnosis (1) Acute and chronic respiratory failure with hypercapnia: Code(s): J96.22 - Acute and chronic respiratory failure with hypercapnia Status: Acute Assessment and Plan: Patient states he is compliant with the Trilogy but notes state he is intermittently compliant. steadily improved while here and transitioned from BiPAP to nasal cannula with BiPAP HS only., and weaned down to his baseline 3 L nasal cannula. Instructed uses trilogy unit HS but also during the day if he naps (2) Abnormal chest x-ray: Code(s): R93.89 - Abnormal findings on diagnostic imaging of other specified body structures Status: Acute Assessment and Plan: * Chest x-ray shows diffuse lung disease consistent with pneumonia and/or pulmonary edema and/or acute respiratory distress syndrome most likely chf. * started on empiric antibiotics for possible underlying pneumonia.and have continued while here SARS-CoV-2 by PCR negative * Probably related to CHF. Continue Bumex IV while here and p.o. on discharge with increase of metolazone to 3 times a week. repeat BMP 03/27 (3) Hyperkalemia: Code(s): E87.5 - Hyperkalemia Status: Acute Assessment and Plan: * Potassium has normalized with diuresis and have had to replace. * Spironolactone was discontinued and potassium to be drawn 03/27 (4) Metabolic encephalopathy: Code(s): G93.41 - Metabolic encephalopathy Status: Acute Assessment and Plan: * Secondary to hypercarbia * He appears back to his baseline. after correction (5) Chronic atrial fibrillation: Code(s): I48.20 - Chronic atrial fibrillation, unspecified Status: Acute Assessment and Plan: * He is rate controlled on diltiazem and metoprolol. * warfarin held with anemia and to restart later per cardiology (6) Congestive heart failure: Code(s): I50.9 - Heart failure, unspecified Status: Acute Assessment and Plan: * Acute on Chronic Diastolic congestive heart failure * Likely due to intermittent compliance with medications and dietary i ndiscretion. * Continued IV Bumex; Continue metolazone. and diuresed upwards of 1-2 L daily while here (7) Hyperthyroidism: Code(s): E05.90 - Thyrotoxicosis, unspecified without thyrotoxic crisis or storm Status: Acute Assessment and Plan: * TSH 46 in January so methimazole dose decreased from 20mg to 10mg. TSH dropped to 5.3 on 02/15/20 on the lower dose. * Methimazole 10 mg currently on hold. * TSH now 7.6. * FT4; still low at 0.48 so held while here but restarted on discharge (8) Type 2 diabetes mellitus: Code(s): E11.9 - Type 2 diabetes mellitus without complications Status: Acute Assessment and Plan: * Well controlled with a recent hemoglobin A1c of 6.8%. * Held metformin while hospitalized and restart at discharge (9) Obstructive sleep apnea: Code(s): G47.33 - Obstructive sleep apnea (adult) (pediatric)
--- NOTE | 2020-03-23 17:43 | PM.DS ---
DS: Admitting Diagnosis Admitting Diagnosis Admitting Diagnosis: Hypercarbic hypoxemic respiratory failure,AMS,ARDS DS: Discharge Diagnosis Discharge Diagnosis (1) Acute and chronic respiratory failure with hypercapnia: Code(s): J96.22 - Acute and chronic respiratory failure with hypercapnia Status: Acute Assessment and Plan: Patient states he is compliant with the Trilogy but notes state he is intermittently compliant. steadily improved while here and transitioned from BiPAP to nasal cannula with BiPAP HS only., and weaned down to his baseline 3 L nasal cannula. Instructed uses trilogy unit HS but also during the day if he naps (2) Abnormal chest x-ray: Code(s): R93.89 - Abnormal findings on diagnostic imaging of other specified body structures Status: Acute Assessment and Plan: Chest x-ray shows diffuse lung disease consistent with pneumonia and/or pulmonary edema and/or acute respiratory distress syndrome most likely chf. started on empiric antibiotics for possible underlying pneumonia.and have continued while here SARS-CoV-2 by PCR negative Probably related to CHF. Continue Bumex IV while here and p.o. on discharge with increase of metolazone to 3 times a week. repeat BMP 03/27 (3) Hyperkalemia: Code(s): E87.5 - Hyperkalemia Status: Acute Assessment and Plan: Potassium has normalized with diuresis and have had to replace. Spironolactone was discontinued and potassium to be drawn 03/27 (4) Metabolic encephalopathy: Code(s): G93.41 - Metabolic encephalopathy Status: Acute Assessment and Plan: Secondary to hypercarbia He appears back to his baseline. after correction (5) Chronic atrial fibrillation: Code(s): I48.20 - Chronic atrial fibrillation, unspecified Status: Acute Assessment and Plan: He is rate controlled on diltiazem and metoprolol. warfarin held with anemia and to restart later per cardiology (6) Congestive heart failure: Code(s): I50.9 - Heart failure, unspecified Status: Acute Assessment and Plan: Acute on Chronic Diastolic congestive heart failure Likely due to intermittent compliance with medications and dietary indiscretion. Continued IV Bumex; Continue metolazone. and diuresed upwards of 1-2 L daily while here (7) Hyperthyroidism: Code(s): E05.90 - Thyrotoxicosis, unspecified without thyrotoxic crisis or storm Status: Acute Assessment and Plan: TSH 46 in January so methimazole dose decreased from 20mg to 10mg. TSH dropped to 5.3 on 02/15/20 on the lower dose. Methimazole 10 mg currently on hold. TSH now 7.6. FT4; still low at 0.48 so held while here but restarted on discharge (8) Type 2 diabetes mellitus: Code(s): E11.9 - Type 2 diabetes mellitus without complications Status: Acute Assessment and Plan: Well controlled with a recent hemoglobin A1c of 6.8%. Held metformin while hospitalized and restart at discharge (9) Obstructive sleep apnea: Code(s): G47.33 - Obstructive sleep apnea (adult) (pediatric) Status: Acute Assessment and Plan: Currently on BiPAP(trilogy at home) (10) Chronic anemia: Code(s): D64.9 - Anemia, unspecified Status: Acute Assessment and Plan: Hegb mostly in the 10 range in January. Hemoglobin has drifted down to 7-8 in February but no signs of acute blood loss. Iron studies showing saturation of 43%;
== END 2020-03-22 17:00 | disposition home health service (06) | DRG 189 ==
LOC: ANHED 10:41 → ANHICU 15:39 → ANHIMU 03-19 11:26 → ANH2MED 03-20 13:50 → ANHICU 03-26 08:34 → ANHIMU 03-26 08:34
PROVIDERS: Internal Medicine; Physician Assistant; Admitting Provider Family Medicine; Emergency Provider Emergency Medicine; Visit Provider Internal Medicine
DX: J96.22 Acute and chronic respiratory failure with hypercapnia (principal); I50.33 Acute on chronic diastolic (congestive) heart failure; G93.41 Metabolic encephalopathy; J18.9 Pneumonia, unspecified organism; I48.20 Chronic atrial fibrillation, unspecified; F05 Delirium due to known physiological condition; R47.01 Aphasia; J96.21 Acute and chronic respiratory failure with hypoxia; I69.320 Aphasia following cerebral infarction; Z20.828 Contact with and (suspected) exposure to other viral communicable diseases; Z91.19 Patient's noncompliance with other medical treatment and regimen; E87.5 Hyperkalemia; E05.90 Thyrotoxicosis, unspecified without thyrotoxic crisis or storm; E11.9 Type 2 diabetes mellitus without complications; G47.33 Obstructive sleep apnea (adult) (pediatric); D64.9 Anemia, unspecified; R93.89 Abnormal findings on diagnostic imaging of other specified body structures; I25.10 Atherosclerotic heart disease of native coronary artery without angina pectoris; E78.5 Hyperlipidemia, unspecified; M19.90 Unspecified osteoarthritis, unspecified site; Z99.81 Dependence on supplemental oxygen; Z87.891 Personal history of nicotine dependence; F11.90 Opioid use, unspecified, uncomplicated; Z95.1 Presence of aortocoronary bypass graft
CPT/HCPCS: 36415; 36430; 36600; 51701; 70450; 71045; 80048; 80053; 80069; 81001; 82274; 82375; 82805; 82948; 83050; 83605; 83735; 83880; 84436; 84439; 84443; 84484; 85014; 85018; 85025; 85027; 85610; 85730; 86850; 86900; 86901; 86923; 87040; 87635; 93005; 94002; 94003; 96365; 96375; 97110; 97116; 97161; 97165; 97530; 99291; A9270; C9803; J0456; J0610; J0696; J1940; P9016; U0003

== ENCOUNTER 2020-04-24 16:17 | Outpatient (NON) | payer MEDICARE, MEDICAID, SELFPAY ==
[2020-04-24 18:25] LABS: Anion Gap 14.99999 mmol/L (8-16); Blood Urea Nitrogen 25 mg/dL (9-20); Calcium 9.7 mg/dL (8.4-10.2); Carbon Dioxide > 40 mmol/L (22-30); Chloride 85 mmol/L (98-107); Estimated Glomerular Filt Rate > 60; Glucose 99 mg/dL (75-110); Potassium 3.2 mmol/L (3.4-5.0); Sodium 140 mmol/L (137-145)
== END 2020-04-24 16:18 ==
LOC: ANHLAB 16:22 → HOME HLTH 16:22
PROVIDERS: Visit Provider Internal Medicine
DX: I48.91 Unspecified atrial fibrillation (principal); J96.22 Acute and chronic respiratory failure with hypercapnia; G93.40 Encephalopathy, unspecified; I50.9 Heart failure, unspecified
CPT/HCPCS: 80048

== ENCOUNTER 2020-10-18 09:43 | Outpatient (RCR) | payer MEDICARE, MEDICAID, SELFPAY ==
[2020-10-18 10:23] LABS: INR 1.4
== END 2021-01-16 23:59 | disposition home or self-care (01) ==
LOC: ANHLAB 09:43
PROVIDERS: Visit Provider Internal Medicine
DX: Z51.81 Encounter for therapeutic drug level monitoring (principal); I48.20 Chronic atrial fibrillation, unspecified; Z79.01 Long term (current) use of anticoagulants
CPT/HCPCS: 36415; 85610

== ENCOUNTER 2021-01-20 08:51 | Outpatient (CLI) | payer MEDICARE, MEDICAID, SELFPAY ==
[2021-01-20 10:30] LABS: Free T4 Free Thyroxine 0.33 ng/mL (0.78-2.19)
== END 2021-01-20 08:52 | disposition home or self-care (01) ==
PROVIDERS: PCP Internal Medicine; Visit Provider Nurse Practitioner
DX: E05.90 Thyrotoxicosis, unspecified without thyrotoxic crisis or storm (principal)
CPT/HCPCS: 36415; 84439; 84443

== ENCOUNTER 2021-03-25 09:24 | Inpatient (IN) | payer MEDICARE, MEDICAID, SELFPAY ==
[2021-03-25] VITALS (10 sets, daily range): BP systolic 100–135; BP diastolic 58–87; PULSE 75–103; RESP 16–20; TEMP 36.4–37.7; O2SAT 95–99; BMI 44.6
--- NOTE | ~2021-03-25 | XR_ITS ---
EXAMINATION: XR chest 1V portable INDICATION: COPD TECHNIQUE: Portable AP chest at 0751 hours COMPARISON: 03/25/2021 FINDINGS: Cardiomegaly is noted. There is mild atelectasis of the lung bases. No pleural effusion or pneumothorax is identified. Median sternotomy wires and mediastinal surgical clips are seen, likely f rom prior coronary artery bypass grafting. IMPRESSION: 1. Bibasilar atelectasis. 2. Cardiomegaly. Reviewed, dictated and finalized at location A.
--- NOTE | ~2021-03-25 | CT_ITS ---
EXAMINATION: CT chest high resolution wo ne DATE: 03/27/2021 09:46 INDICATION: Pneumonia, history of interstitial lung disease TECHNIQUE: Computed tomography (CT) of the chest was performed without intravenous contrast. The dose -length product (DLP) was 781.62 mGy-cm. Automated exposure control and iterative reconstruction tech [employer] were employed. COMPARISON: 05/14/2018 FINDINGS: Thyromegaly is noted. There are small pleural effusions. Passive dependent atelectasis is p resent. There is no pneumothorax. Changes of coronary artery bypass grafting are noted. Cardiomegaly is noted. Calcified pulmonary nodules and calcified bilateral hilar and mediastinal lymph nodes are c onsistent with old granulomatous disease. There is mild bilateral gynecomastia. There are no patholog ically enlarged thoracic lymph nodes. Punctate calcifications in an otherwise normal spleen likely re present healed granulomatous disease. There is moderate thoracic spondylosis. There is chronic thicke alena of the left adrenal gland. IMPRESSION: 1. Small pleural effusions with passive dependent atelectasis. Reviewed, dictated and finalized at location A.
--- NOTE | ~2021-03-25 | XR_ITS ---
EXAMINATION: XR lumbar spine 2-3V EXAM DATE: 03/26/2021 15:13 INDICATION: Fell this morning, back pain. Initial encounter. Mild abdominal aortic ectasia. TECHNIQUE: Lumber spine frontal, lateral, lateral L5-S1 projections for interpretation. There is no prior study for comparison. FINDINGS: Sacrum, sacroiliac joints, sacral arcuate lines are intact. There is moderate disc disease at L5-S1. There are no acute fractures identified. Mild to moderate lumbar facet arthropathy. IMPRESSION: 1. L5-S1 moderate disc disease. 2. Mild to moderate facet arthropathy. Reviewed, dictated and finalized at location B.
--- NOTE | ~2021-03-25 | XR_ITS ---
EXAMINATION: XR chest 1V portable EXAM DATE: 03/25/2021 10:50 INDICATION: Dyspnea, CHF. Coronary artery disease. TECHNIQUE: Portable AP frontal chest x-ray was obtained. Comparison is made to prior examination from 03/20/2020. FINDINGS: Sternotomy wires are present without findings to suggest sternal dehiscence. The cardiac si lhouette is enlarged. There is indistinct reticulation with a bibasal predominance which may indicate pulmonary edema. Some regions of confluence also suspected which could be pneumonia or edema. There is no pneumothorax suspected. There are bony degenerative changes. Accounting for differences in tech nique, there is no significant interval change. IMPRESSION: Cardiomegaly, congestion, edema and/or pneumonia. Reviewed, dictated and finalized at location B.
--- NOTE | ~2021-03-25 | XR_ITS ---
EXAMINATION: XR thoracic spine 3V EXAM DATE: 03/26/2021 15:13 INDICATION: Fall, back pain. Initial encounter. TECHNIQUE: Frontal and lateral projections of the thoracic spine as well as lateral swimmers projecti on of the upper thoracic spine for interpretation. Correlation is made to CT thoracic spine 2007. FINDINGS: Mild anterior wedging 2 couple of midthoracic levels, unchanged compared to a CT thoracic spine 2018. There are no acute fractures identified. Small lower thoracic bridging endplate osteoph ytes. Mild diffuse thoracic disc disease. There are no bony erosions identified. Sternotomy wires are present without findings to suggest sternal dehiscence. IMPRESSION: 1. Mild thoracic spondylosis. 2. No acute findings. Reviewed, dictated and finalized at location B.
--- NOTE | 2021-03-25 09:26 | ECG_ITS ---
Measurements Intervals [place] Rate: 94 P: SD: 0 QRS: 91 QRSD: 89 T: 48 QT: 337 QTc: 422 Interpretive Statements ATRIAL FIBRILLATION BASELINE ARTIFACT- I, II, III, AVR, AVL, AVF ABNORMAL ECG Electronically Signed On 03-25-2021 9:43:55 CDT by Charli Griffiths D.O.
[2021-03-25 09:51] LABS: Basophils Percent Auto 0.5 % (0.2-1.2); Eosinophils Absolute Auto 0.1 K/mm3 (0-0.3); Eosinophils Percent Auto 1.2 % (0-4.4); Hematocrit 34.2 % (42.0-52.0); Hemoglobin 10.5 g/dL (14.0-18.0); Immature Granulocyte Absolute 0.02 K/mm3 (0.00-0.031); Immature Granulocyte Percent A 0.2 % (0-0.5); Lymphocytes Percent Auto 8.6 % (18.3-44.2); Mean Corpuscular HGB Conc 30.7 g/dl (32-36); Mean Corpuscular Hemoglobin 29.7 pg (26-34); Mean Corpuscular Volume 96.9 fl (80-100); Mean Platelet Volume 8.9 fl (7.4-10.4); Monocytes Absolute Auto 0.6 K/mm3 (0.1-0.6); Monocytes Percent Auto 7.4 % (2.6-8.5); Neutrophils Absolute Auto 6.7 K/mm3 (1.3-6.7); Neutrophils Percent Auto 82.1 % (45.5-73.1); Platelet Count Result 177 k/mm3 (150-375); Red Blood Count 3.53 M/mm3 (4.6-6.20); White Blood Count 8.1 K/mm3 (4.5-10.0)
[2021-03-25 10:04] LABS: Anion Gap 11 mmol/L (8-16); Blood Urea Nitrogen 12 mg/dL (9-20); Calcium 8.9 mg/dL (8.4-10.2); Carbon Dioxide 28 mmol/L (22-30); Chloride 101 mmol/L (98-107); Estimated CRCL calculation 129 ml/min; Estimated Glomerular Filt Rate > 60; Glucose 144 mg/dL (65-110); Potassium 4.4 mmol/L (3.4-5.0); Sodium 140 mmol/L (137-145)
[2021-03-25 10:24] LABS: Add Urine Microscopic? NO; Appearance Urine Clear (Clear); Bilirubin Urine Negative (Negative); Blood Urine Negative (Negative); Color Urine Colorless (Yellow); Glucose Urine UA Negative (Negative); Ketones Urine Negative (Negative); Leukocyte Esterase Ur Negative LEU/UL (Negative); Nitrate Urine Negative (Negative); Protein Urine Negative (Negative); Specific Grav Ur 1.005 (1.001-1.035); Urobilinogen Urine Negative mg/dL (<2.0)
[2021-03-25 11:17] LABS: NT Pro B Type Natriuretic Pept 925 pg/mL (5-100)
--- NOTE | 2021-03-25 11:28 | PC.NURSE ---
pt aggressive and yelling at RN. pt grabbing at RN shirt while trying to place O2 in pt nares. pt told sternly to not touch this RN or any staff. therapeutic communication used and pt settled back into stretcher with call light and TV on.
[2021-03-25 11:50] LABS: Alveolar/Arterial O2 Gradient 125.1 mmHg; Base Excess ABG 0.1 mEq/l (+/-2.0); Carboxyhemoglobin 0.6 % THb (0-2.0); Fractional Inspired Oxygen 40 %; HCO3 ABG 25.2 mEq/l (22.0-26.0); Methemoglobin ABG 0.2 %THb (0-1.5); Oxygen Content ABG 14.2 %vol (16.0-22.0); Oxyhemoglobin 96.7 % THb (90.0-100.0); PCO2 ABG 42.7 mmHg (35.0-45.0); PO2 FiO2 Ratio Arterial Blood 2.78 %; Reduced Hemoglobin 2.5 %THb (0-5.0); Total Hemoglobin 10.3 g/dL (12.0-18.0); pH ABG 7.388 (7.350-7.450)
[2021-03-25 11:52] LABS: Device NASAL CANNULA; Modified Allen's Test Pass; Site Drawn RIGHT RADIAL
--- NOTE | 2021-03-25 12:55 | ED.SOB ---
HPI - SOB/Dyspnea General Chief Complaint: Shortness of Breath/Dyspnea Stated Complaint: sob Time Seen by Provider: 03/25/21 09:37 History of Present Illness HPI Narrative: Patient is a 60-year-old male who presents to the ER with shortness of breath. Ongoing over the last week. Reports he is exposed to potential Covid after seeing something members 2 weeks ago who are positive at the time. Denies fevers or chills. Reports he has had to increase his oxygen to help with his shortness of breath at home and has also been using his home CPAP more often. Denies chest pain or chest pressure. No loss consciousness. Related Data Home Medications Medication Instructions Recorded Confirmed furosemide 80 mg tablet 80 mg PO QAM 03/07/21 Allergies Allergy/AdvReac Type Severity Reaction Status Date / Time morphine AdvReac Unknown Increased Verified 03/07/21 13:06 HR Review of Systems Review of Systems: All systems reviewed & are unremarkable except as noted in HPI and below Constitutional: Constitutional: Denies chills, Reports fatigue and Denies fever(s) ENT: Denies nasal congestion and Denies sore throat Cardiovascular: Cardiovascular: Denies chest pain and Denies radiating jaw, neck or arm pain Respiratory: Respiratory: Reports chest congestion, Reports cough, Reports dyspnea and Reports wheezing Gastrointestinal: Gastrointestinal: Denies abdominal pain, Denies nausea and Denies vomiting PMFSH Past Medical History Medical History Cerebrovascular accident (~05/2018) With global aphasia, much improved. Chronic anemia Chronic atrial fibrillation With failed cardiac ablation and cardioversion on several occasions. On long-term Coumadin for stroke prophylaxis. 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 Chronic respiratory failure with hypoxia, on home oxygen therapy 3 L nasal cannula with rest. 4 L bleed in at nighttime. Congestive heart failure Echocardiogram on 01/31/2020: 1. Left ventricular chamber dimension is mildly enlarged. 2. Left ventricular systolic function mildly reduced, estimated at 50-55%. 3. There is mildly increased left ventricular wall thickness. 4. The left ventricular diastolic function is abnormal. 5. Left atrial chamber dimension is moderately enlarged. 6. Mild regurgitation of the annuloplasty ring prosthetic mitral valve. 7. There is mild tricuspid valve regurgitation. 8. Mild pulmonary hypertension, estimated pulmonary arterial systolic pressure is 39 mmHg. Coronary artery disease (~2001) Status post three-vessel bypass. Depression with anxiety Essential hypertension Hyperlipidemia Hyperthyroidism MRSA colonization Obstructive sleep apnea Approved for trilogy unit in February 2020. Osteoarthritis Type 2 diabetes mellitus Hemoglobin A1c was 6.8% on 01/08/2020. Valvular heart disease Status post mitral valve repair. Surgical History Surgical History History of coronary artery bypass graft x 3 History of mitral valve repair Family History Family History Father Family history of cardiovascular disease Family history of malignant neoplasm of bone Mother Family history of malignant neoplasm Sibling Family history of cardiovascular disease Social History Social History Social History: Surrogate decision maker: Alton Peters, brother. Code status: Do not resuscitate. 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
--- NOTE | 2021-03-25 15:00 | PM.IMHP ---
H&P: HPI History of Present Illness Date/Time: 03/25/21 15:00 this is a 60-year-old male patient has a history of interstitial lung disease and has chronically on oxygen at 3 L per nasal cannula. The patient stated that he is fully vaccinated for COVID-19. The patient stated he has 1 more short of breath over the last week. He was exposed to potential COVID 19 by visiting 1 of his family members 2 weeks ago who had a positive COVID test at that time. The patient does not have any fever chills. He has had increased his oxygen level at home and has been using his nebulizer treatment and CPAP machine more frequently. 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 The patient is quite anxious and complaining of lower back pain as well. He stated that his back pain is chronic. Chest x-ray was read as cardiomegaly, congestion, edema and/or pneumonia. The patient was started on a azithromycin Rocephin. His H&H is stable at 10.5 and 34.2 which is his baseline. His pH was normal on his ABGs and his PO2 was 111.0. Patient was taken off the BiPAP and placed on his home oxygen of 3 L at this time. The COVID PCR is pending. The patient is being admitted for observation status on the date of service of 03/25/2021. Chief Complaint: Shortness of breath Review of Systems Review of Systems: All systems reviewed & are unremarkable except as noted in HPI and below Constitutional: Constitutional: Reports as per HPI and Reports no additional constitutional complaints Eyes: Eyes: Reports as per HPI and Reports no additional eye complaints ENT: Reports system reviewed and no additional complaints, except as documented and Reports Normal hearing present Cardiovascular: Cardiovascular: Reports no additional cardiovascular complaints Respiratory: Respiratory: Reports no additional respiratory complaints and Reports no additional respiratory complaints Gastrointestinal: Gastrointestinal: Reports as per HPI and Reports no additional gastrointestinal complaints Musculoskeletal: Musculoskeletal: Reports no additional musculoskeletal complaints Integumentary/Breasts: Skin/Breast: Reports system reviewed and no additional complaints, except as docu and Reports as per HPI Neurologic: Reports system reviewed and no additional complaints, except as documented, Reports as per HPI and Reports Normal hearing present Psychiatric: Psychiatric: Reports no additional psychiatric complaints and Reports as per HPI Endocrine: Endocrine: Reports no additional endocrine complaints Hematologic/Lymphatic: Hematologic/Lymphatic: Reports no additional hematologic/lymphatic complaints Allergic/Immunologic: Allergic/Immunologic: Reports no additional allergic/immunologic complaints [facility] Past Medical History Medical History Cerebrovascular accident (~05/2018) With global aphasia, much improved. Chronic anemia Chronic atrial fibrillation With failed cardiac ablation and cardioversion on several occasions. On long-term Coumadin for stroke prophylaxis. 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 Chronic respiratory failure with hypoxia, on home oxygen therapy 3 L nasal cannula with rest. 4 L bleed in at nighttime. Congestive heart failure Echocardiogram on 01/31/2020: 1. Left ventricular chamber dimension is mildly enlarged. 2. Left ventricular systolic function mildly reduced, estimated at 50-55%. 3. There is mildly increased left ventricular wall thickness. 4. The left ventricular diastolic function is abnormal. 5. Left atrial chamber dimension is moderately enlarged. 6. Mild regurgitation of the annuloplasty ring prosthetic mitral valve. 7. There is mild tricuspid valve regurgitation. 8. Mild pulmonary hypertension, estimated pulmonary arterial systolic pressure is 39 mmHg. Coronary artery disease (~2001) Status post three-vessel bypass. Depression with anxiety Ess
--- NOTE | 2021-03-25 15:52 | ADMGEN ---
This patient, John Peters, was admitted to [facility] Room 300-01. Patient/family oriented to hospital policies and general routines including ID bracelet, bed and alarms, visiting hours, pain management, procedures, bathroom and other care routines, personal items, smoking policy, room service/diet, and visiting hours. Information on how to activate the Rapid Response Team has been discussed. Patient/Family are encouraged to report perceived risks to care and to ask questions if they do not understand what they are told or what they should do.
--- NOTE | 2021-03-25 16:10 | PCRCNOTE ---
Window of time for administration has passed. See next scheduled administration.
[2021-03-25] MEDS: BUMETANIDE INJ 1 MG/4 ML VIAL IV PUSH (16:53)
[2021-03-25 17:22] LABS: Glucose Point of Care 160 mg/dl (65-105)
[2021-03-25] MEDS: POTASSIUM CHLORIDE 20 MEQ TABLET.ER BY MOUTH (18:56)
[2021-03-25] MEDS: HYDROcodone/acetaminophen (*CRX) 7.5-325 MG TABLET 1 TAB PO (18:59)
[2021-03-25] MEDS: LIDOCAINE 5% PATCH 2 PATCH TRANSDERM (20:25)
[2021-03-25] MEDS: ACETAMINOPHEN 325 MG TABLET 650 MG PO (20:26)
[2021-03-25] MEDS: METOPROLOL TARTRATE 50 MG TAB 100 MG PO (20:26)
[2021-03-25] MEDS: ALBUTEROL SULFATE NEB 2.5 MG/0.5 ML INH 5 MG INHALATION (20:26)
[2021-03-25] MEDS: IPRATROPIUM BR 0.02% INH SOLN 0.5 MG/2.5 ML VIAL 1 MG INHALATION (20:27)
[2021-03-25 20:37] LABS: INR 1.5; Prothrombin Time 18.2 Seconds (11.1-14.7)
[2021-03-25] MEDS: LORazepam INJ (*CRX) 2 MG/ML VIAL 0.5 MG IV PUSH (22:23)
[2021-03-26] VITALS (18 sets, daily range): BP systolic 78–112; BP diastolic 48–84; PULSE 53–123; RESP 16–20; TEMP 36–36.7; O2SAT 91–100
[2021-03-26] MEDS: HYDROcodone/acetaminophen (*CRX) 5-325 MG TABLET 1 TAB PO ×4 (01:43→22:53)
[2021-03-26] MEDS: ENOXAPARIN 80 MG/0.8 ML SYRINGE 135 MG SUB-Q ×2 (01:44→15:16)
[2021-03-26 01:54] LABS: Glucose Point of Care 133 mg/dl (65-105)
[2021-03-26] MEDS: LORazepam INJ (*CRX) 2 MG/ML VIAL 0.5 MG IV PUSH ×4 (04:23→20:28)
[2021-03-26 06:13] LABS: Basophils Percent Auto 0.6 % (0.2-1.2); Eosinophils Absolute Auto 0.2 K/mm3 (0-0.3); Eosinophils Percent Auto 3.3 % (0-4.4); Hematocrit 33.3 % (42.0-52.0); Hemoglobin 10.1 g/dL (14.0-18.0); Immature Granulocyte Absolute 0.01 K/mm3 (0.00-0.031); Immature Granulocyte Percent A 0.2 % (0-0.5); Lymphocytes Absolute Auto 0.98 K/mm3 (0.9-3.2); Mean Corpuscular HGB Conc 30.3 g/dl (32-36); Mean Corpuscular Hemoglobin 29.9 pg (26-34); Mean Corpuscular Volume 98.5 fl (80-100); Mean Platelet Volume 9.2 fl (7.4-10.4); Monocytes Absolute Auto 0.4 K/mm3 (0.1-0.6); Monocytes Percent Auto 7.9 % (2.6-8.5); Neutrophils Absolute Auto 3.8 K/mm3 (1.3-6.7); Platelet Count Result 171 k/mm3 (150-375); Red Blood Count 3.38 M/mm3 (4.6-6.20); Red Cell Distribution Width 14.7 % (11.5-14.5); White Blood Count 5.4 K/mm3 (4.5-10.0)
[2021-03-26 06:26] LABS: INR 1.5; Prothrombin Time 17.9 Seconds (11.1-14.7)
[2021-03-26 06:30] LABS: Lactic Acid Reflex 1.5 mmol/L (0.7-2.1)
[2021-03-26 06:31] LABS: Alanine Aminotransferase 24 U/L (4-50); Albumin Level 3.7 g/dL (3.5-5.1); Alkaline Phosphatase 90 U/L (38-126); Anion Gap 9 mmol/L (8-16); Aspartate Amino Transferase 21 U/L (17-59); Bilirubin,Total 0.5 mg/dL (0.2-1.3); Blood Urea Nitrogen 12 mg/dL (9-20); CRP 2.4 mg/dL (<1.0); Calcium 8.4 mg/dL (8.4-10.2); Carbon Dioxide 31 mmol/L (22-30); Chloride 99 mmol/L (98-107); Estimated CRCL calculation 113 ml/min; Estimated Glomerular Filt Rate > 60; Glucose 150 mg/dL (65-110); Lactate Dehydrogenase 394 U/L (313-618); Lipase 74 U/L (23-300); Magnesium 1.9 mg/dL (1.6-2.3); Potassium 3.7 mmol/L (3.4-5.0); Sodium 139 mmol/L (137-145)
[2021-03-26 07:17] LABS: Hemoglobin A1C 6.4 % (<5.7)
[2021-03-26] MEDS: metOLazone 5 MG TABLET BY MOUTH (08:13)
[2021-03-26] MEDS: FUROSEMIDE 80 MG TABLET PO (08:13)
[2021-03-26] MEDS: POTASSIUM CHLORIDE 20 MEQ TABLET.ER BY MOUTH ×2 (08:13→16:32)
[2021-03-26] MEDS: methiMAzole 10 MG TAB 20 MG BY MOUTH (08:16)
[2021-03-26] MEDS: METOPROLOL TARTRATE 50 MG TAB 100 MG PO ×2 (08:17→20:26)
[2021-03-26] MEDS: ESCITALOPRAM OXALATE 5 MG TABLET PO (08:17)
[2021-03-26] MEDS: BUMETANIDE 1 MG TABLET 2 MG BY MOUTH ×2 (08:19→16:32)
[2021-03-26] MEDS: HYDROcodone/acetaminophen (*CRX) 7.5-325 MG TABLET 1 TAB PO ×2 (08:25→16:31)
[2021-03-26 08:31] LABS: Glucose Point of Care 160 mg/dl (65-105)
--- NOTE | 2021-03-26 09:23 | PM.CNPUL ---
Assessment and Plan Assessment and plan (1) Obstructive sleep apnea: Code(s): G47.33 - Obstructive sleep apnea (adult) (pediatric) Status: Acute Assessment and Plan: Patient with history ups obstructive sleep apnea and the computer says he was approved for a trilogy machine in February of 2020. I will attempt to find out his DME company and obtain a download to determine what settings he was on at home and to assess his compliance. I recommended that he bring his home machine to the hospital and he says he has no way to accomplish this. Patient states that the auto PAP 23/12 with 5 L bleed in felt similar to his machine at home and he tolerated this well with a fullface mask. His blood gas on admission was 7.39/43/111 on 5 L bleed in so there is no evidence of hypercarbic respiratory failure at this time. Will continue his current auto PAP settings until more data is available. (2) Chronic obstructive pulmonary disease, unspecified: Qualifiers: COPD type: unspecified COPD Qualified Code(s): J44.9 - Chronic obstructive pulmonary disease, unspecified Code(s): J44.9 - Chronic obstructive pulmonary disease, unspecified Status: Chronic Assessment and Plan: Patient with a history of tobacco use quit 3 years ago and carries a diagnosis of COPD on home oxygen anywhere from 2-5 L nasal cannula 24-7. On a good day he can walk 5 yd and has an M MRC grade 4. He said he is on no inhaled medicines at home because his brother has destroyed all his medicines. Currently he was admitted for and hypoxic event, shortness of breath, increased cough and increased phlegm. Chest x-ray shows fluid overload versus pneumonia and his BNP is elevated at 925. He has peripheral edema. Given the shortness of breath change in phlegm production and worsening cough I will treat him for a COPD exacerbation. I will place him on prednisone 40 mg p.o. q.day x5 days, albuterol 2.5 mg nebs q.4 hours standing, ipratropium 0.5 mg nebs q.4 hours standing. Patient also may have a pneumonia and I would agree with ceftriaxone and azithromycin pending blood cultures which are negative today. Currently patient is on 5 L nasal cannula oxygen with saturations 94% and this appears to be close to his baseline oxygen use at home. His blood gases 7.39/43/111 on 5 L nasal cannula oxygen so there is no evidence of hypercarbic respiratory failure. His COVID test is pending. If the COVID test is negative, I will obtain a CT scan of the chest to exclude interstitial lung disease which was listed as the consultation reason. Agree with diuresing as aggressively as tolerated by his cardiac and renal systems. Will follow with you. History of Present Illness History of Present Illness Consult date: 03/26/21 Requesting physician: Carmita Coronado NP Reason for consult: hypoxemia and other (ILD) Chief complaint: Pneumonia; Covid PUI Narrative: This is a new Pulmonary consultation for hypoxemia and interstitial lung disease. 60-year-old man with a history of hypertension, diabetes, hyperthyroidism, CVA, coronary artery disease post status post CABG and mitral valve repair approximately 10 years ago, atrial fibrillation status post failed ablation on warfarin, COPD on home oxygen, obstructive sleep apnea on either CPAP, BiPAP or noninvasive ventilation.. Patient states that he had a stroke and it is hard for him to answer many of my questions. He simply says I do not know to about 50% of my questions. Regarding his COPD patient has a history of tobacco use from age [age] at 1 pack per day for total 31 pack years and he states he quit 2-3 years ago. he was exposed to secondhand smoke from both his parents but none currently. 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 One of these chemicals included Agent [place] to clear weeds. Patient states that he w
[2021-03-26] MEDS: ATORVASTATIN 20 MG TABLET PO (09:37)
[2021-03-26] MEDS: ASPIRIN 81 MG CHEWABLE TABLET PO (09:37)
[2021-03-26] MEDS: dilTIAZem HCL CD 180 MG CAP.ER.24H PO (09:37)
[2021-03-26] MEDS: predniSONE 20 MG TABLET 40 MG PO (11:20)
--- NOTE | 2021-03-26 12:14 | PM.IMPN ---
Progress Note: A&P Assessment and Plan (1) Pneumonia: Code(s): J18.9 - Pneumonia, unspecified organism Status: Acute Assessment and Plan: Chest x-ray nonspecific and does show congestion or pneumonia -BNP 925, much lower now than has been in the past. Continue home diuretics -continue ceftriaxone and azithromycin to cover for community-acquired pneumonia -COVID test pending, he has had exposure but is vaccinated -sputum culture ordered -pulmonology consulted, prednisone started (2) Person under investigation for COVID-19: Code(s): Z20.822 - Contact with and (suspected) exposure to COVID-19 Status: Acute Assessment and Plan: As above -continue isolation until PCR has resulted (3) Type 2 diabetes mellitus: Code(s): E11.9 - Type 2 diabetes mellitus without complications Status: Acute Assessment and Plan: Last glucose 160 -A1c 6.4 -continue sliding scale insulin (4) Obstructive sleep apnea: Code(s): G47.33 - Obstructive sleep apnea (adult) (pediatric) Status: Acute Assessment and Plan: History of sleep apnea and does wear a machine at home -continue with DME we have available here (5) Chronic back pain: Code(s): M54.9 - Dorsalgia, unspecified; G89.29 - Other chronic pain Status: Acute Assessment and Plan: Chronic in somewhat worse since the fall -will obtain x-rays (6) Chronic anemia: Code(s): D64.9 - Anemia, unspecified Status: Acute Assessment and Plan: Patient appears to be at baseline. Continue to monitor. (7) Essential hypertension: Code(s): I10 - Essential (primary) hypertension Status: Acute Assessment and Plan: Last blood pressure 108/84 -continue diltiazem, metoprolol, metolazone and Lasix (8) Chronic atrial fibrillation: Code(s): I48.20 - Chronic atrial fibrillation, unspecified Status: Acute Assessment and Plan: Continue with metoprolol and diltiazem -anticoagulated with warfarin with subtherapeutic INR 1.5 -he has been started on full-dose Lovenox -check daily INRs (9) Congestive heart failure: Code(s): I50.9 - Heart failure, unspecified Status: Acute Assessment and Plan: Slightly fluid overloaded as stated above, BNP better than baseline - Last filed echo was 01/31/2021 with an EF of 50-55%. Repeat echo. 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 Ativan (11) Hyperthyroidism: Code(s): E05.90 - Thyrotoxicosis, unspecified without thyrotoxic crisis or storm Status: Acute Assessment and Plan: TSH high and T4 low--will decrease methimazole -January 2020 his methimazole was changed from 20 mg to 10 mg when his TSH was high at that time as well. His home medications show that he takes 20 mg, I am unclear why this changed back to the 20 mg dose. I am going to have the nurse verify. Time Spent With Patient Time with patient: 25 - 35 minutes Subjective Date/time seen: 03/26/21 12:14 Interval history: Pt is a 60-year-old male on chronic oxygen here for pneumonia and hypoxia. Patient was seen today and says he feels slightly better but is upset that he did not get his morning medications on time. A code debra was called due to this. He was able to come down fairly easily but is upset with the food and timing of medications. Had to be redirected a lot during my history taking. He states that he has been having a cough for a while. He was found to be hypoxic at home which prompted him to call 911. He says he uses between 1 L and 5 L of oxygen just depending on how he feels. He says he came in because he thinks he passed out but did not lose consciousn
[2021-03-26 12:26] LABS: Glucose Point of Care 139 mg/dl (65-105)
[2021-03-26] MEDS: IPRATROPIUM BR 0.02% INH SOLN 0.5 MG/2.5 ML VIAL INHALATION ×3 (12:39→19:45)
[2021-03-26] MEDS: ALBUTEROL SULFATE NEB 2.5 MG/0.5 ML INH INHALATION ×3 (12:39→19:45)
[2021-03-26] MEDS: WARFARIN (*PBKC) 5 MG TABLET PO (16:32)
[2021-03-26] MEDS: INSULIN ASPART (*BKC) 100 UNITS/ML SUB-Q (16:50)
[2021-03-26 18:07] LABS: Glucose Point of Care 221 mg/dl (65-105)
[2021-03-26] MEDS: NICOTINE (*PBKC) 21 MG PATCH 1 PATCH TRANSDERM (20:59)
[2021-03-26 22:41] LABS: SARS-CoV-2 RNA PCR Negative
[2021-03-26 23:49] LABS: Glucose Point of Care 244 mg/dl (65-105)
[2021-03-27] VITALS (17 sets, daily range): BP systolic 83–118; BP diastolic 51–80; PULSE 70–106; RESP 16–20; TEMP 35.8–36; O2SAT 94–99
--- NOTE | 2021-03-27 | ECHO_ITS ---
Patient Info Name: John Peters Age: 60 years : 1960 Gender: Male Ht: 69 in Wt: 293 lbs BSA: 2.61 m2 HR: 89 bpm BP: 97 / 60 mmHg Heart Rhythm: Atrial Fibrillation Technical Quality: Fair Exam Date: 03/27/2021 2:47 PM Exam Location: [facility] Patient Status: Inpatient Admit Date: 03/26/2021 Staff Ordering Physician: Carmita Coronado NP Secondary Connector Armature: Donna Melchor RDCS Attending Provider: Aneta Sifuentes PA-C Referring Physician: Ivonne COLON; Exam Type: CA echo doppler color flow Study Info Indications - MITRAL VALVE RING I50.9 - Heart failure, unspecified Complete two-dimensional, color flow and Doppler transthoracic echocardiogram is performed. Summary 1. Complete two-dimensional, color flow and Doppler transthoracic echocardiogram is performed. 2. Left ventricular chamber dimension is mildly enlarged. 3. Left ventricular systolic function is normal, estimated at 55-60%. 4. There is mildly increased left ventricular wall thickness. 5. The left ventricular diastolic function is abnormal. 6. Right ventricular chamber dimension is moderately enlarged. 7. Right ventricular systolic function is reduced. 8. Left atrial chamber dimension is severely enlarged. 9. Right atrial chamber dimension is moderately enlarged. 10. There is mild regurgitation of the annuloplasty ring prosthetic mitral valve. 11. There is mild tricuspid valve regurgitation. 12. Mild pulmonary hypertension, estimated pulmonary arterial systolic pressure is 44 mmHg. Left Ventricle Left ventricular chamber dimension is mildly enlarged. Left ventricular systolic function is normal, estimated at 55-60%. There is mildly increased left ventricular wall thickness. The left ventricular diastolic function is abnormal. Right Ventricle Right ventricular chamber dimension is moderately enlarged. Right ventricular systolic function is reduced. Left Atria Left atrial chamber dimension is severely enlarged. Right Atria Right atrial chamber dimension is moderately enlarged. Atrial Septum Intact interatrial septum visualized by color flow imaging. Aortic Valve The aortic valve is trileaflet. There is mild aortic valve sclerosis. There is no aortic valve stenosis. There is trace aortic valve regurgitation. Pulmonic Valve The pulmonic valve is normal. There is no pulmonic valve stenosis. There is trace pulmonic regurgitation. Mitral Valve There is no stenosis of the annuloplasty ring prosthetic mitral valve. There is mild regurgitation of the annuloplasty ring prosthetic mitral valve. Tricuspid Valve The tricuspid valve leaflets are normal. There is no significant tricuspid valve stenosis. There is mild tricuspid valve regurgitation. Mild pulmonary hypertension, estimated pulmonary arterial systolic pressure is 44 mmHg. Pericardium/Pleural The pericardium appears normal. There is no pericardial effusion. Inferior Vena Cava Normal inferior vena cava with >50% collapse upon inspiration consistent with elevated right atrial pressure, 10 mmHg. Aorta The aortic root size at the sinus of Valsalva is normal. Left Ventricular Outflow Tract Name Value Normal LVOT 2D LVOT Diameter
[2021-03-27] MEDS: ALBUTEROL SULFATE NEB 2.5 MG/0.5 ML INH INHALATION ×2 (01:16→07:38)
[2021-03-27] MEDS: IPRATROPIUM BR 0.02% INH SOLN 0.5 MG/2.5 ML VIAL INHALATION ×2 (01:17→07:38)
[2021-03-27] MEDS: HYDROcodone/acetaminophen (*CRX) 7.5-325 MG TABLET 1 TAB PO ×3 (01:41→22:44)
[2021-03-27] MEDS: ENOXAPARIN 80 MG/0.8 ML SYRINGE 135 MG SUB-Q ×2 (01:42→15:09)
[2021-03-27] MEDS: LORazepam INJ (*CRX) 2 MG/ML VIAL 0.5 MG IV PUSH ×3 (02:59→21:10)
[2021-03-27 06:51] LABS: Hematocrit 33.9 % (42.0-52.0); Hemoglobin 10.8 g/dL (14.0-18.0); Mean Corpuscular HGB Conc 31.9 g/dl (32-36); Mean Corpuscular Hemoglobin 29.5 pg (26-34); Mean Corpuscular Volume 92.6 fl (80-100); Mean Platelet Volume 9.5 fl (7.4-10.4); Platelet Count Result 237 k/mm3 (150-375); Red Blood Count 3.66 M/mm3 (4.6-6.20); Red Cell Distribution Width 14.2 % (11.5-14.5)
[2021-03-27 07:01] LABS: INR 1.3; Prothrombin Time 15.6 Seconds (11.1-14.7)
[2021-03-27] MEDS: NICOTINE (*PBKC) 21 MG PATCH 1 PATCH TRANSDERM (08:33)
[2021-03-27] MEDS: METOPROLOL TARTRATE 50 MG TAB 100 MG PO ×2 (08:33→21:08)
[2021-03-27] MEDS: dilTIAZem HCL CD 180 MG CAP.ER.24H PO (08:35)
[2021-03-27] MEDS: ESCITALOPRAM OXALATE 5 MG TABLET PO (08:35)
[2021-03-27] MEDS: ATORVASTATIN 20 MG TABLET PO (08:35)
[2021-03-27] MEDS: predniSONE 20 MG TABLET 40 MG PO (08:35)
[2021-03-27] MEDS: ASPIRIN 81 MG CHEWABLE TABLET PO (08:35)
[2021-03-27] MEDS: FUROSEMIDE 80 MG TABLET PO (08:35)
[2021-03-27] MEDS: BUMETANIDE 1 MG TABLET 2 MG BY MOUTH ×2 (08:35→16:42)
[2021-03-27] MEDS: POTASSIUM CHLORIDE 20 MEQ TABLET.ER BY MOUTH ×2 (08:35→16:43)
[2021-03-27] MEDS: methiMAzole 10 MG TAB BY MOUTH (08:35)
--- NOTE | 2021-03-27 08:46 | PM.PNPUL ---
Progress Note: A&P Assessment and Plan (1) Obstructive sleep apnea: Code(s): G47.33 - Obstructive sleep apnea (adult) (pediatric) Status: Acute Assessment and Plan: 03/26 Patient with history ups obstructive sleep apnea and the computer says he was approved for a trilogy machine in February of 2020. I will attempt to find out his DME company and obtain a download to determine what settings he was on at home and to assess his compliance. I recommended that he bring his home machine to the hospital and he says he has no way to accomplish this. Patient states that the auto PAP 23/12 with 5 L bleed in felt similar to his machine at home and he tolerated this well with a fullface mask. His blood gas on admission was 7.39/43/111 on 5 L bleed in so there is no evidence of hypercarbic respiratory failure at this time. Will continue his current auto PAP settings until more data is available. I received a trilogy download from [employer] from 02/23/2021 through 03/24/2021. The patient is on AVAPS-AE mode with breath rate auto, tidal volume 375 mL, EPAP Min 6, EPAP max 10, pressure support min 5, pressure support max 25, max pressure 25, rise time 5.0 ramp is off. % days used is 100% days used for more hours is 100%, average use days used is 11.9 hours, average EPAP is 7.6, average IPAP is 14.9, average tidal volume is 419.5 mL, average peak flow 24, average total leak 84. this indicates excellent compliance, with a high air leak. I will place the patient on AVAPS in the hospital with a rate of 14, tidal volume 450, EPAP 8, minimal inspiratory pressure 9, maximal inspiratory pressure 25, 5 liters bleed in for now. 03/27 Charting indicates he wore hospital noninvasive ventilator with AVAPS mode last night but the patient states that he wore auto Pap. Patient states he wears his home a VATS 8 G with 2 L bleed in and I will place him on hospital noninvasive ventilation with AVAPS mode with 2 L bleed in and check an overnight oximetry. (2) Chronic obstructive pulmonary disease, unspecified: Qualifiers: COPD type: unspecified COPD Qualified Code(s): J44.9 - Chronic obstructive pulmonary disease, unspecified Code(s): J44.9 - Chronic obstructive pulmonary disease, unspecified Status: Chronic Assessment and Plan: Patient with a history of tobacco use quit 3 years ago and carries a diagnosis of COPD on home oxygen anywhere from 2-5 L nasal cannula 24-7. On a good day he can walk 5 yd and has an M MRC grade 4. He said he is on no inhaled medicines at home because his brother has destroyed all his medicines. 03/26 Currently he was admitted for and hypoxic event, shortness of breath, increased cough and increased phlegm. Chest x-ray shows fluid overload versus pneumonia and his BNP is elevated at 925. He has peripheral edema. Given the shortness of breath change in phlegm production and worsening cough I will treat him for a COPD exacerbation. I will place him on prednisone 40 mg p.o. q.day x5 days, albuterol 2.5 mg nebs q.4 hours standing, ipratropium 0.5 mg nebs q.4 hours standing. Patient also may have a pneumonia and I would agree with ceftriaxone and azithromycin pending blood cultures which are negative today. Currently patient is on 5 L nasal cannula oxygen with saturations 94% and this appears to be close to his baseline oxygen use at home. His blood gases 7.39/43/111 on 5 L nasal cannula oxygen so there is no evidence of hypercarbic respiratory failure. His COVID test is pending. If the COVID test is negative, I will obtain a CT scan of the chest to exclude interstitial lung disease which was listed as the consultation reason. Agree with diuresing as aggressively as tolerated by his cardiac and renal systems. 03/27 Patient tells me that he is improved since admission. He states he is 50% back to normal that his breathing, cough and phlegm production are all improved. I will discontinue
[2021-03-27 09:09] LABS: Anion Gap 9 mmol/L (8-16); Blood Urea Nitrogen 15 mg/dL (9-20); CRP 1.3 mg/dL (<1.0); Calcium 8.8 mg/dL (8.4-10.2); Carbon Dioxide 36 mmol/L (22-30); Chloride 90 mmol/L (98-107); Estimated CRCL calculation 113 ml/min; Estimated Glomerular Filt Rate > 60; Glucose 148 mg/dL (65-110); Potassium 3.6 mmol/L (3.4-5.0); Sodium 135 mmol/L (137-145)
[2021-03-27 09:11] LABS: Glucose Point of Care 144 mg/dl (65-105)
[2021-03-27] MEDS: HYDROcodone/acetaminophen (*CRX) 5-325 MG TABLET 1 TAB PO (10:08)
[2021-03-27] MEDS: FLUTICASONE PROPIONATE 0.05% NA SPR 16 GM BTL (*BKC) 2 SPRAY NASAL (10:11)
--- NOTE | 2021-03-27 11:15 | PM.IMPN ---
Progress Note: A&P Assessment and Plan (1) Pneumonia: Code(s): J18.9 - Pneumonia, unspecified organism Status: Acute Assessment and Plan: Chest x-ray nonspecific and does show congestion or pneumonia -BNP 925, much lower now than has been in the past. Continue home diuretics -continue ceftriaxone and azithromycin to cover for community-acquired pneumonia -COVID PCR negative -high-resolution CT ordered but has not been read -sputum culture ordered -pulmonology consulted, prednisone started -patient would like nebulizer medications at discharge. He has a nebulizer at home. He states these medications are improving his shortness of breath. (2) Congestive heart failure: Code(s): I50.9 - Heart failure, unspecified Status: Acute Assessment and Plan: Slightly fluid overloaded as stated above, BNP better than baseline - Last filed echo was 01/31/2021 with an EF of 50-55%. Repeat echo pending. 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 -continue metoprolol and diuretics (3) Type 2 diabetes mellitus: Code(s): E11.9 - Type 2 diabetes mellitus without complications Status: Acute Assessment and Plan: Last glucose 144 -A1c 6.4 -continue sliding scale insulin (4) Obstructive sleep apnea: Code(s): G47.33 - Obstructive sleep apnea (adult) (pediatric) Status: Acute Assessment and Plan: History of sleep apnea and does wear a machine at home -continue with DME we have available here (5) Chronic back pain: Code(s): M54.9 - Dorsalgia, unspecified; G89.29 - Other chronic pain Status: Acute Assessment and Plan: Chronic in somewhat worse since the fall -back x-rays without acute pathology (6) Chronic anemia: Code(s): D64.9 - Anemia, unspecified Status: Acute Assessment and Plan: Patient appears to be at baseline. Continue to monitor. (7) Essential hypertension: Code(s): I10 - Essential (primary) hypertension Status: Acute Assessment and Plan: Last blood pressure 97/60 and was low throughout the night. RN states that prior to giving blood pressure medications his blood pressure was 117/65 -he was given diltiazem, metoprolol, metolazone and Lasix this morning -I have called the nurse who is going to repeat a blood pressure. Patient is not having any symptoms of dizziness or lightheadedness -will add parameters on blood pressure medications (8) Chronic atrial fibrillation: Code(s): I48.20 - Chronic atrial fibrillation, unspecified Status: Acute Assessment and Plan: Rate controlled. -anticoagulated with warfarin with subtherapeutic INR 1.3 -he has been started on full-dose Lovenox -check daily INRs (9) Depression with anxiety: Code(s): F41.8 - Other specified anxiety disorders Status: Chronic Assessment and Plan: Continue Lexapro and p.r.n. Ativan (10) Hyperthyroidism: Code(s): E05.90 - Thyrotoxicosis, unspecified without thyrotoxic crisis or storm Status: Acute Assessment and Plan: TSH high and T4 low-decreased methimazole -January 2020 his methimazole was changed from 20 mg to 10 mg when his TSH was high at that time as well. His home medications show that he takes 20 mg, I am unclear why this changed back to the 20 mg dose. Pt unsure (11) Person under investigation for COVID-19: Code(s): Z20.822 - Contact with and (suspected) exposure to COVID-19 Status: Acute Assessment and Plan: Ruled out (12) Hypotension: Code(s): I95.9 - Hypotension, unspecified Status: Acute Assessment and Plan: As above -parameters set on blood pressure medications -no signs of worsening infection/sepsis Subjective Date/time seen: 03/27/21 11:15 Interval history: Pt is a 60-year-old male on chronic oxygen here for pneumonia and hypoxia. Patient was seen toda
--- NOTE | 2021-03-27 11:26 | PCRCNOTE ---
Attempted home O2 eval x2, pt is speaking with [facility]. Will check back at a later time.
[2021-03-27 11:40] LABS: Glucose Point of Care 137 mg/dl (65-105)
[2021-03-27] MEDS: UMECLIDINIUM/VILANTEROL 62.5-25 MCG ELLIPTA 1 PUFF INHALATION (12:54)
[2021-03-27] MEDS: WARFARIN (*PBKC) 7.5 MG TABLET PO (16:44)
[2021-03-27 17:25] LABS: Glucose Point of Care 232 mg/dl (65-105)
[2021-03-27] MEDS: INSULIN ASPART (*BKC) 100 UNITS/ML SUB-Q (17:52)
[2021-03-27] MEDS: guaiFENesin 12 HR 600 MG TABCR PO (21:08)
[2021-03-27] MEDS: SODIUM CHLORIDE NASAL GEL 14.1 GM 1 APPLIC NASAL (21:08)
[2021-03-27] MEDS: ARTIFICIAL TEARS OPHTH SOLN 15 ML BOTTLE 1 DROP EACH EYE (21:14)
[2021-03-27 22:55] LABS: Glucose Point of Care 183 mg/dl (65-105)
[2021-03-28] VITALS (12 sets, daily range): BP systolic 90–103; BP diastolic 56–79; PULSE 76–88; RESP 12–20; TEMP 36–36.6; O2SAT 85–100
[2021-03-28] MEDS: ENOXAPARIN 80 MG/0.8 ML SYRINGE 135 MG SUB-Q ×2 (01:10→15:17)
[2021-03-28] MEDS: HYDROcodone/acetaminophen (*CRX) 5-325 MG TABLET 1 TAB PO ×2 (02:18→16:31)
--- NOTE | 2021-03-28 05:44 | PCRCNOTE ---
patient refused the use of NIV-AVAPS mode for the oximetry study and stated that his home unit works properly; the patient said that he could not tolerate the use of AVAPS for more than a few hours; The oximetry study was completed with the use of a hospital unit with a 2L oxygen bleed-in
[2021-03-28 06:48] LABS: Hemoglobin 11.3 g/dL (14.0-18.0); Mean Corpuscular HGB Conc 31.4 g/dl (32-36); Mean Corpuscular Hemoglobin 29.7 pg (26-34); Mean Corpuscular Volume 94.7 fl (80-100); Mean Platelet Volume 9.6 fl (7.4-10.4); Platelet Count Result 265 k/mm3 (150-375); Red Cell Distribution Width 14.4 % (11.5-14.5); White Blood Count 10.3 K/mm3 (4.5-10.0)
[2021-03-28 06:57] LABS: INR 1.3; Prothrombin Time 16.1 Seconds (11.1-14.7)
--- NOTE | 2021-03-28 07:10 | PM.PNPUL ---
Progress Note: A&P Assessment and Plan (1) Obstructive sleep apnea: Code(s): G47.33 - Obstructive sleep apnea (adult) (pediatric) Status: Acute Assessment and Plan: 03/26 Patient with history ups obstructive sleep apnea and the computer says he was approved for a trilogy machine in February of 2020. I will attempt to find out his DME company and obtain a download to determine what settings he was on at home and to assess his compliance. I recommended that he bring his home machine to the hospital and he says he has no way to accomplish this. Patient states that the auto PAP 23/12 with 5 L bleed in felt similar to his machine at home and he tolerated this well with a fullface mask. His blood gas on admission was 7.39/43/111 on 5 L bleed in so there is no evidence of hypercarbic respiratory failure at this time. Will continue his current auto PAP settings until more data is available. I received a trilogy download from [employer] from 02/23/2021 through 03/24/2021. The patient is on AVAPS-AE mode with breath rate auto, tidal volume 375 mL, EPAP Min 6, EPAP max 10, pressure support min 5, pressure support max 25, max pressure 25, rise time 5.0 ramp is off. % days used is 100% days used for more hours is 100%, average use days used is 11.9 hours, average EPAP is 7.6, average IPAP is 14.9, average tidal volume is 419.5 mL, average peak flow 24, average total leak 84. this indicates excellent compliance, with a high air leak. I will place the patient on AVAPS in the hospital with a rate of 14, tidal volume 450, EPAP 8, minimal inspiratory pressure 9, maximal inspiratory pressure 25, 5 liters bleed in for now. 03/27 Charting indicates he wore hospital noninvasive ventilator with AVAPS mode last night but the patient states that he wore auto Pap. Patient states he wears his home a VATS 8 G with 2 L bleed in and I will place him on hospital noninvasive ventilation with AVAPS mode with 2 L bleed in and check an overnight oximetry. 03/28 patient with echocardiogram this admission showing improved LV function but worsening RV enlargement and now with reduced RV function. He has mild pulmonary heart hypertension essentially unchanged from 39-40 for now. His mitral valve shows mild regurgitation and I suspect this worsening RV function and pulmonary hypertension or related to his obstructive sleep apnea. Patient wore the auto PAP unit with pressures 14/6 and 2 L bleed in with Patient had an overnight oximetry on these settings that demonstrated an average saturation of 93, lowest saturation 71%, time with saturation less than or equal to 88% was 35 minutes or 10% of the monitored time. I have told him to wear his home AVAPS-AE unit with 3 L bleed in and to have at repeat overnight oximetry as an outpatient on 3 L. (2) Chronic obstructive pulmonary disease, unspecified: Qualifiers: COPD type: unspecified COPD Qualified Code(s): J44.9 - Chronic obstructive pulmonary disease, unspecified Code(s): J44.9 - Chronic obstructive pulmonary disease, unspecified Status: Chronic Assessment and Plan: Patient with a history of tobacco use quit 3 years ago and carries a diagnosis of COPD on home oxygen anywhere from 2-5 L nasal cannula 24-7. On a good day he can walk 5 yd and has an M MRC grade 4. He said he is on no inhaled medicines at home because his brother has destroyed all his medicines. 03/26 Currently he was admitted for and hypoxic event, shortness of breath, increased cough and increased phlegm. Chest x-ray shows fluid overload versus pneumonia and his BNP is elevated at 925. He has peripheral edema. Given the shortness of breath change in phlegm production and worsening cough I will treat him for a COPD exacerbation. I will place him on prednisone 40 mg p.o. q.day x5 days, albuterol 2.5 mg nebs q.4 hours standing, ipratropium 0.5 mg nebs q.4 hours standing. Patient also may have a pneumonia
[2021-03-28 07:14] LABS: Blood Urea Nitrogen 26 mg/dL (9-20); Calcium 8.9 mg/dL (8.4-10.2); Carbon Dioxide > 40 mmol/L (22-30); Chloride 87 mmol/L (98-107); Estimated CRCL calculation 91 ml/min; Estimated Glomerular Filt Rate > 60; Glucose 139 mg/dL (65-110); Potassium 3.4 mmol/L (3.4-5.0); Sodium 136 mmol/L (137-145)
[2021-03-28] MEDS: ASPIRIN 81 MG CHEWABLE TABLET PO (08:10)
[2021-03-28] MEDS: guaiFENesin 12 HR 600 MG TABCR PO (08:10)
[2021-03-28] MEDS: POTASSIUM CHLORIDE 20 MEQ TABLET.ER BY MOUTH ×2 (08:10→16:34)
[2021-03-28] MEDS: ESCITALOPRAM OXALATE 5 MG TABLET PO (08:10)
[2021-03-28] MEDS: predniSONE 20 MG TABLET 40 MG PO (08:10)
[2021-03-28] MEDS: BUMETANIDE 1 MG TABLET 2 MG BY MOUTH ×2 (08:10→16:33)
[2021-03-28] MEDS: NICOTINE (*PBKC) 21 MG PATCH 1 PATCH TRANSDERM (08:11)
[2021-03-28] MEDS: methiMAzole 10 MG TAB 20 MG BY MOUTH (08:11)
[2021-03-28] MEDS: ATORVASTATIN 20 MG TABLET PO (08:11)
[2021-03-28] MEDS: FLUTICASONE PROPIONATE 0.05% NA SPR 16 GM BTL (*BKC) 2 SPRAY NASAL (08:12)
[2021-03-28] MEDS: HYDROcodone/acetaminophen (*CRX) 7.5-325 MG TABLET 1 TAB PO (08:14)
[2021-03-28] MEDS: LORazepam INJ (*CRX) 2 MG/ML VIAL 0.5 MG IV PUSH ×2 (08:15→16:31)
[2021-03-28] MEDS: UMECLIDINIUM/VILANTEROL 62.5-25 MCG ELLIPTA 1 PUFF INHALATION (08:30)
[2021-03-28 08:31] LABS: Glucose Point of Care 125 mg/dl (65-105)
[2021-03-28] MEDS: FUROSEMIDE 80 MG TABLET PO (08:37)
[2021-03-28] MEDS: METOPROLOL TARTRATE 50 MG TAB 100 MG PO (08:37)
[2021-03-28 11:29] LABS: Glucose Point of Care 186 mg/dl (65-105)
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
--- NOTE | 2021-03-28 14:05 | HOMEO2EVAL ---
Evaluation was performed at [facility] Home Oxygen Evaluation RC: Home Oxygen (O2) Evaluation Start: 03/27/21 08:52 Freq: ONCE Status: Active Protocol: RPE Activity Type Activity Date Activity User E-Sign Co-Sign Detail Recorded Client Recorded Date Recorded By Document 03/28/21 11:15 JOHNATHAN [email or web address] 03/28/21 11:49 JOHNATHAN Document 03/28/21 11:16 JOHNATHAN [email or web address] 03/28/21 11:49 JOHNATHAN Document 03/28/21 11:17 JOHNATHAN [email or web address] 03/28/21 11:49 JOHNATHAN Document 03/28/21 11:18 JOHNATHAN [email or web address] 03/28/21 11:49 JOHNATHAN Document 03/28/21 11:19 JOHNATHAN [email or web address] 03/28/21 11:49 JOHNATHAN Document 03/28/21 11:20 JOHNATHAN [email or web address] 03/28/21 11:49 JOHNATHAN Document 03/28/21 11:30 JOHNATHAN [email or web address] 03/28/21 11:49 JOHNATHAN 03/28/21 03/28/21 03/28/21 11:15 11:16 11:17 Home O2 Evaluation Test Phase Resting Resting Resting Oxygen Delivery Room Air Nasal Cannula Nasal Cannula Oxygen Flow Rate (L/min) 2 3 Pulse Oximetry (90-100 %) 85 L 86 L 87 L Home Oxygen Evaluation Comments Treatment Charges O2 Evaluation - Inpatient 03/28/21 03/28/21 03/28/21 11:18 11:19 11:20 Home O2 Evaluation Test Phase Resting Resting Resting Oxygen Delivery Nasal Cannula Nasal Cannula Nasal Cannula Oxygen Flow Rate (L/min) 4 5 5 Pulse Oximetry (90-100 %) 87 L 94 96 Home Oxygen Evaluation Comments pt requires 5 liters and rest and with exertion Treatment Charges 03/28/21 11:30 Home O2 Evaluation Test Phase Resting Oxygen Delivery Nasal Cannula Oxygen Flow Rate (L/min) 5 Pulse Oximetry (90-100 %) 94 Home Oxygen Evaluation Comments Treatment Charges
--- NOTE | 2021-03-28 14:08 | PCRCNOTE ---
Pt is not currently an established O2 pt with any DME. Pt at one point was being serviced with [facility], although they havent billed for him or serviced his equipment in quite some time. I will resend required documentation and new order to re-establish him and ensure all o2 equipment is being serviced properly. [facility] # Pt does have his [facility] equip/supplies and services with [facility].
--- NOTE | 2021-03-28 14:13 | PCRCNOTE ---
Awaiting approval from [facility], then belly dump driver will bring a tank to hospital prior to DC for transport home.
--- NOTE | 2021-03-28 16:20 | PCRCNOTE ---
SPOKE TO RN, TANK FOR TRANSPORT HOME WILL BE ANOTHER 1-2 HOURS DUE TO NIGHT SHIFT SUPERVISOR SHORTAGE.
[2021-03-28] MEDS: WARFARIN (*PBKC) 5 MG TABLET PO (16:33)
[2021-03-28 17:19] LABS: Glucose Point of Care 218 mg/dl (65-105)
[2021-03-28] MEDS: INSULIN ASPART (*BKC) 100 UNITS/ML SUB-Q (18:00)
== END 2021-03-28 19:40 | disposition home or self-care (01) | DRG 193 ==
LOC: ANHED 13:51 → ANH3MEDSUR 13:54
PROVIDERS: Nurse Practitioner; Physician Assistant; Admitting Provider Internal Medicine; Emergency Provider Emergency Medicine; PCP Internal Medicine; Visit Provider Internal Medicine
DX: J18.9 Pneumonia, unspecified organism (principal); I50.33 Acute on chronic diastolic (congestive) heart failure; I48.20 Chronic atrial fibrillation, unspecified; J96.11 Chronic respiratory failure with hypoxia; Z68.41 Body mass index [BMI] 40.0-44.9, adult; J44.0 Chronic obstructive pulmonary disease with (acute) lower respiratory infection; G47.33 Obstructive sleep apnea (adult) (pediatric); I11.0 Hypertensive heart disease with heart failure; M54.9 Dorsalgia, unspecified; G89.29 Other chronic pain; D64.9 Anemia, unspecified; I10 Essential (primary) hypertension; F41.8 Other specified anxiety disorders; E05.90 Thyrotoxicosis, unspecified without thyrotoxic crisis or storm; I95.9 Hypotension, unspecified; Z20.822 Contact with and (suspected) exposure to COVID-19; I25.10 Atherosclerotic heart disease of native coronary artery without angina pectoris; E78.5 Hyperlipidemia, unspecified; M19.90 Unspecified osteoarthritis, unspecified site; E11.9 Type 2 diabetes mellitus without complications; E66.01 Morbid (severe) obesity due to excess calories; Z66 Do not resuscitate; I69.320 Aphasia following cerebral infarction; Z79.01 Long term (current) use of anticoagulants; Z99.81 Dependence on supplemental oxygen; Z95.1 Presence of aortocoronary bypass graft; Z87.891 Personal history of nicotine dependence
CPT/HCPCS: 36415; 36600; 51701; 71045; 71250; 72072; 72100; 80048; 80053; 81003; 82375; 82805; 82948; 83036; 83050; 83605; 83615; 83690; 83735; 83880; 84439; 84443; 85025; 85027; 85610; 86140; 87040; 93005; 93306; 94002; 94003; 94618; 94640; 94762; 96372; 96374; 96375; 96376; 97161; 97165; 99285; A9270; C9803; G0378; J0456; J0696; J1650; J1815; J2060; J7512; U0003; U0005

== ENCOUNTER 2021-04-14 12:42 | Emergency (ER) | payer MEDICARE, MEDICAID, SELFPAY ==
--- NOTE | ~2021-04-14 | XR_ITS ---
EXAMINATION: XR chest 2V EXAM DATE: 04/14/2021 13:26 INDICATION: Chest pain and shortness of breath. TECHNIQUE: Frontal and lateral projections of the chest obtained and reviewed. Comparison is made to prior examination from 03/28/2021. FINDINGS: Sternotomy wires are present without findings to suggest sternal dehiscence. Cardiomediast inal silhouette is normal. There is no pneumothorax suspected. There are no pleural effusions. There are no osseous abnormalities identified. Mild chronic midthoracic compression fracture. IMPRESSION: No acute cardiopulmonary findings. Reviewed, dictated and finalized at location A.
[2021-04-14 12:52] VITALS: BP 125/66; PULSE 64; RESP 18; TEMP 36.6; O2SAT 98
--- NOTE | 2021-04-14 13:02 | ECG_ITS ---
Measurements Intervals [place] Rate: 109 P: MA: 0 QRS: 86 QRSD: 115 T: -6 QT: 394 QTc: 531 Interpretive Statements ATRIAL FIBRILLATION WITH RAPID VENTRICULAR RESPONSE FREQUENT VENTRICULAR PREMATURE COMPLEXES INTRAVENTRICULAR CONDUCTION DELAY BORDERLINE ST-T WAVE ABNORMALITY- INF/LAT LEADS BASELINE ARTIFACT- I, III, AVR, AVL, AVF ABNORMAL ECG Electronically Signed On 04-14-2021 13:38:43 CDT by Charli Griffiths D.O.
[2021-04-14 13:16] LABS: Basophils Percent Auto 0.3 % (0.2-1.2); Eosinophils Percent Auto 0.3 % (0-4.4); Hematocrit 40.5 % (42.0-52.0); Hemoglobin 13.2 g/dL (14.0-18.0); Immature Granulocyte Absolute 0.04 K/mm3 (0.00-0.031); Immature Granulocyte Percent A 0.5 % (0-0.5); Lymphocytes Absolute Auto 0.84 K/mm3 (0.9-3.2); Lymphocytes Percent Auto 9.5 % (18.3-44.2); Mean Corpuscular HGB Conc 32.6 g/dl (32-36); Mean Corpuscular Hemoglobin 29.4 pg (26-34); Mean Corpuscular Volume 90.2 fl (80-100); Mean Platelet Volume 9.4 fl (7.4-10.4); Monocytes Absolute Auto 0.8 K/mm3 (0.1-0.6); Monocytes Percent Auto 9.5 % (2.6-8.5); Neutrophils Absolute Auto 7.1 K/mm3 (1.3-6.7); Neutrophils Percent Auto 79.9 % (45.5-73.1); Platelet Count Result 177 k/mm3 (150-375); Red Blood Count 4.49 M/mm3 (4.6-6.20); Red Cell Distribution Width 14.4 % (11.5-14.5); White Blood Count 8.9 K/mm3 (4.5-10.0)
[2021-04-14 13:28] LABS: Ethanol < 10 mg/dL (<10)
[2021-04-14 13:34] LABS: Add Urine Microscopic? NO; Appearance Urine Clear (Clear); Bilirubin Urine Negative (Negative); Blood Urine Negative (Negative); Color Urine Colorless (Yellow); Glucose Urine UA Negative (Negative); Ketones Urine Negative (Negative); Leukocyte Esterase Ur Negative LEU/UL (Negative); Nitrate Urine Negative (Negative); Protein Urine Negative (Negative); Urobilinogen Urine Negative mg/dL (<2.0)
[2021-04-14 13:38] LABS: NT Pro B Type Natriuretic Pept 287 pg/mL (5-100); Troponin I < 0.012 ng/mL (0.000-0.034)
[2021-04-14 13:45] LABS: Specific Grav Ur 1.004 (1.001-1.035)
[2021-04-14 13:55] LABS: Alanine Aminotransferase 36 U/L (4-50); Alkaline Phosphatase 106 U/L (38-126); Anion Gap 18 mmol/L (8-16); Aspartate Amino Transferase 24 U/L (17-59); Bilirubin,Total 0.6 mg/dL (0.2-1.3); Blood Urea Nitrogen 14 mg/dL (9-20); Calcium 9.5 mg/dL (8.4-10.2); Carbon Dioxide 27 mmol/L (22-30); Chloride 88 mmol/L (98-107); Estimated CRCL calculation 106 ml/min; Estimated Glomerular Filt Rate > 60; Glucose 178 mg/dL (65-110); Potassium 2.3 mmol/L (3.4-5.0); Sodium 133 mmol/L (137-145)
[2021-04-14 14:01] LABS: Thyroid Stimulating Hormone 0.412 uIU/mL (0.465-4.680)
[2021-04-14 14:15] LABS: Amphetamine Screen Urine Negative (Negative); Barbiturate Screen Urine Negative (Negative); Benzodiazepines Screen Urine Negative (Negative); Cannabinoid Screen Urine Negative (Negative); Cocaine Screen Urine Negative (Negative); Methadone Screen Urine Negative (Negative); Opiate Screen Urine Positive (Negative); Phencyclidine Screen Urine Negative (Negative)
[2021-04-14 15:04] VITALS: BP 128/71; PULSE 95; RESP 21; O2SAT 98
[2021-04-14 15:26] VITALS: O2SAT 98
[2021-04-14] MEDS: HYDROcodone/acetaminophen (*CRX) 5-325 MG TABLET 1 TAB PO (16:15)
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
[2021-04-14 21:04] VITALS: BP 126/85; PULSE 107; RESP 16; O2SAT 96
== END 2021-04-14 21:05 | disposition home or self-care (01) ==
PROVIDERS: Emergency Medicine; Emergency Provider Family Medicine; PCP Internal Medicine
DX: E87.6 Hypokalemia (principal); F11.23 Opioid dependence with withdrawal; I48.20 Chronic atrial fibrillation, unspecified; J96.11 Chronic respiratory failure with hypoxia; I50.9 Heart failure, unspecified; I25.10 Atherosclerotic heart disease of native coronary artery without angina pectoris; I11.0 Hypertensive heart disease with heart failure; E11.9 Type 2 diabetes mellitus without complications; E78.5 Hyperlipidemia, unspecified; E05.90 Thyrotoxicosis, unspecified without thyrotoxic crisis or storm; D64.9 Anemia, unspecified; M19.90 Unspecified osteoarthritis, unspecified site; Z99.81 Dependence on supplemental oxygen; Z95.1 Presence of aortocoronary bypass graft; Z66 Do not resuscitate; F41.8 Other specified anxiety disorders; G47.33 Obstructive sleep apnea (adult) (pediatric); Z79.84 Long term (current) use of oral hypoglycemic drugs; Z79.01 Long term (current) use of anticoagulants; Z79.82 Long term (current) use of aspirin; Z86.14 Personal history of Methicillin resistant Staphylococcus aureus infection; Z87.891 Personal history of nicotine dependence; I49.3 Ventricular premature depolarization; I45.9 Conduction disorder, unspecified
CPT/HCPCS: 36415; 71046; 80053; 80307; 81003; 83880; 84443; 84484; 85025; 93005; 96365; 96366; 99284; A9270; J3480

== ENCOUNTER 2021-04-25 13:35 | Observation (INO) | payer MEDICARE, MEDICAID, SELFPAY ==
[2021-04-25] VITALS (46 sets, daily range): BP systolic 95–146; BP diastolic 54–83; PULSE 115–159; RESP 13–28; TEMP 36.3–36.8; O2SAT 87–100; BMI 39.5
--- NOTE | 2021-04-25 | ECG_ITS ---
Measurements Intervals [place] Rate: 127 P: TN: 0 QRS: 92 QRSD: 90 T: 4 QT: 286 QTc: 417 Interpretive Statements ATRIAL FIBRILLATION WITH RAPID VENTRICULAR RESPONSE VENTRICULAR PREMATURE COMPLEX DELAYED PRECORDIAL R/S TRANSITION BORDERLINE T WAVE ABNORMALITY- INFERIOR LEADS BASELINE ARTIFACT- I, II, AVR, AVF, V5 ABNORMAL ECG Electronically Signed On 04-28-2021 10:47:14 CDT by Charli Griffiths D.O.
--- NOTE | ~2021-04-25 | XR_ITS ---
XR chest 1V portable DATE: 04/25/2021 14:15 INDICATION: Dyspnea TECHNIQUE: Portable upright AP chest views on 04/25/2021 at 1410 hours COMPARISON: 04/2021 2 view chest FINDINGS: There is pulmonary vascular congestion and redistribution, prominence of the minor fissure and Alisa B-lines, perihilar and lower lung zone infiltrates consistent with congestive heart failur e and pulmonary edema. Status post sternotomy. Aortic calcification. No pleural effusion or pneumothorax is evident. IMPRESSION: Congestive changes, pulmonary edema Reviewed, dictated and finalized at location A.
--- NOTE | 2021-04-25 14:05 | ED.SOB ---
HPI - SOB/Dyspnea General Chief Complaint: Shortness of Breath/Dyspnea Stated Complaint: sob Time Seen by Provider: 04/25/21 13:45 History of Present Illness HPI Narrative: Patient presents with shortness of breath and weakness. Patient reports he is feeling well over the weekend was not using any oxygen however since approximately Wednesday has had increased shortness of breath he is turned up his oxygen levels to 5 L which is unusual for him he had progressive weakness was concerned so came to the ER for evaluation. Shortness of breath is constant is worsened with laying flat he reports nonproductive cough generalized weakness. He has not noted any fevers or congestion. Denies any chest pain nausea or vomiting. Related Data Home Medications Medication Instructions Recorded Confirmed fluticasone propionate See Rx Instructions .ROUTE 03/25/21 03/25/21 .COMPLEX PRN lidocaine [Lidoderm] 2 patch TRANSDERMAL DAILY PRN 03/25/21 03/25/21 Allergies Allergy/AdvReac Type Severity Reaction Status Date / Time morphine AdvReac Unknown Increased Verified 04/25/21 15:03 HR Review of Systems Review of Systems: CONSTITUTIONAL: Denies fever, chills, or sweats. EYES: Denies visual changes, redness, or discharge. ENT: Denies rhinorrhea, congestion, sore throat, or otalgia. CARDIOVASCULAR: Denies chest pain, palpitations, or edema. RESPIRATORY: Reports shortness of breath and cough GASTROINTESTINAL: Denies abdominal pain, nausea, vomiting, or diarrhea. GENITOURINARY: Denies dysuria or hematuria. SKIN: Denies rash or itching. MUSCULOSKELETAL: Denies back pain, joint pain, or myalgia. NEUROLOGIC: Denies headache, numbness, dizziness, or weakness. PSYCHIATRIC: Denies anxiety or depression. All systems reviewed & are unremarkable except as noted in HPI and below PMFSH Past Medical History Medical History Cerebrovascular accident (~05/2018) With global aphasia, much improved. Chronic anemia Chronic atrial fibrillation With failed cardiac ablation and cardioversion on several occasions. On long-term Coumadin for stroke prophylaxis. 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 Chronic respiratory failure with hypoxia, on home oxygen therapy 3 L nasal cannula with rest. 4 L bleed in at nighttime. Congestive heart failure Echocardiogram on 01/31/2020: 1. Left ventricular chamber dimension is mildly enlarged. 2. Left ventricular systolic function mildly reduced, estimated at 50-55%. 3. There is mildly increased left ventricular wall thickness. 4. The left ventricular diastolic function is abnormal. 5. Left atrial chamber dimension is moderately enlarged. 6. Mild regurgitation of the annuloplasty ring prosthetic mitral valve. 7. There is mild tricuspid valve regurgitation. 8. Mild pulmonary hypertension, estimated pulmonary arterial systolic pressure is 39 mmHg. Coronary artery disease (~2001) Status post three-vessel bypass. Depression with anxiety Essential hypertension Hyperlipidemia Hyperthyroidism MRSA colonization Obstructive sleep apnea Approved for trilogy unit in February 2020. Osteoarthritis Type 2 diabetes mellitus Hemoglobin A1c was 6.8% on 01/08/2020. Valvular heart disease Status post mitral valve repair. Surgical History Surgical History History of coronary artery bypass graft x 3 History of mitral valve repair Family History Family History Father Family history of cardiovascular disease Family history of malignant neoplasm of bone Mother Family history of malignant neoplasm Sibling Family history of cardiovascular disease Social History Social History Social History: Surrogate decision maker: Alton Peters, brother. Code status: Do not
[2021-04-25] MEDS: ALBUTEROL SULFATE NEB 2.5 MG/0.5 ML INH 5 MG INHALATION ×3 (14:29→15:49)
[2021-04-25] MEDS: IPRATROPIUM BR 0.02% INH SOLN 0.5 MG/2.5 ML VIAL INHALATION ×3 (14:29→15:48)
[2021-04-25 14:32] LABS: Alveolar/Arterial O2 Gradient 110.8 mmHg; Fractional Inspired Oxygen 32 %; HCO3 ABG 27.8 mEq/l (22.0-26.0); Oxygen Content ABG 14.2 %vol (16.0-22.0); Oxygen Saturation ABG 90.1 % (95.0-100.0); PO2 FiO2 Ratio Arterial Blood 1.88 %; Total Hemoglobin 11.3 g/dL (12.0-18.0); pH ABG 7.372 (7.350-7.450)
[2021-04-25 14:38] LABS: Device NASAL CANNULA; Site Drawn LEFT BRACHIAL
[2021-04-25] MEDS: FUROSEMIDE INJ 40 MG/4 ML VIAL IV PUSH ×2 (14:51→22:37)
--- NOTE | 2021-04-25 15:13 | PC.NURSE ---
Called lab to add on BNP and troponin.
[2021-04-25 15:28] LABS: Anion Gap 7 mmol/L (8-16); Blood Urea Nitrogen 21 mg/dL (9-20); Calcium 8.6 mg/dL (8.4-10.2); Carbon Dioxide 31 mmol/L (22-30); Chloride 99 mmol/L (98-107); Estimated CRCL calculation 86 ml/min; Estimated Glomerular Filt Rate > 60; Glucose 166 mg/dL (65-110); Potassium 4.2 mmol/L (3.4-5.0); Sodium 137 mmol/L (137-145)
[2021-04-25] MEDS: HYDROcodone/acetaminophen (*CRX) 5-325 MG TABLET 1 TAB PO ×2 (15:32→17:54)
[2021-04-25 15:37] LABS: Add Urine Microscopic? YES; Appearance Urine Clear (Clear); Bilirubin Urine Negative (Negative); Blood Urine Negative (Negative); Color Urine Straw (Yellow); Glucose Urine UA 3+ mg/dL (Negative); Ketones Urine Trace mg/dL (Negative); Leukocyte Esterase Ur Negative LEU/UL (Negative); Nitrate Urine Negative (Negative); Protein Urine 1+ mg/dL (Negative); RBC Urine 0-2 /hpf (0-2); Specific Grav Ur 1.009 (1.001-1.035); Urobilinogen Urine Negative mg/dL (<2.0); WBC Urine 0-3 /hpf
[2021-04-25 15:45] LABS: Basophils Percent Auto 0.4 % (0.2-1.2); Eosinophils Absolute Auto 0.2 K/mm3 (0-0.3); Eosinophils Percent Auto 2.4 % (0-4.4); Hematocrit 38.6 % (42.0-52.0); Immature Granulocyte Absolute 0.03 K/mm3 (0.00-0.031); Immature Granulocyte Percent A 0.4 % (0-0.5); Lymphocytes Absolute Auto 0.51 K/mm3 (0.9-3.2); Mean Corpuscular HGB Conc 31.1 g/dl (32-36); Mean Corpuscular Hemoglobin 29.3 pg (26-34); Mean Corpuscular Volume 94.4 fl (80-100); Monocytes Absolute Auto 0.6 K/mm3 (0.1-0.6); Monocytes Percent Auto 6.6 % (2.6-8.5); Neutrophils Absolute Auto 7.2 K/mm3 (1.3-6.7); Neutrophils Percent Auto 84.2 % (45.5-73.1); Platelet Count Result 163 k/mm3 (150-375); Red Blood Count 4.09 M/mm3 (4.6-6.20); Red Cell Distribution Width 14.6 % (11.5-14.5); White Blood Count 8.5 K/mm3 (4.5-10.0)
[2021-04-25 15:49] LABS: NT Pro B Type Natriuretic Pept 1290 pg/mL (5-100); Troponin I < 0.012 ng/mL (0.000-0.034)
[2021-04-25] MEDS: dilTIAZem HCl INJ 25 MG/5 ML VIAL 10 MG IV PUSH (16:20)
--- NOTE | 2021-04-25 16:25 | PC.NURSE ---
Pt requesting his anxious medication. Takes Alprazolam at home per home med list / pharmacy. Dr Yoder aware, will place order.
--- NOTE | 2021-04-25 17:43 | PC.NURSE ---
Dietary called for dinner tray
[2021-04-25 18:03] LABS: Prothrombin Time 13.3 Seconds (11.1-14.7)
[2021-04-25 18:04] LABS: Partial Thromboplastin Time 30.2 SECONDS (22.3-36.8)
--- NOTE | 2021-04-25 18:15 | PM.IMHP ---
H&P: HPI History of Present Illness Date/Time: 04/25/21 18:15 Chief Complaint: Shortness of breath. Narrative: This is a 60-year-old male with multiple medical problems including history of stroke, chronic atrial fibrillation, obstructive sleep apnea, chronic respiratory failure, type 2 diabetes mellitus, coronary artery disease, hypertension, congestive heart failure, and several other comorbidities who presented to the emergency department earlier this morning via EMS from home with complaints of shortness of breath. He has been doing pretty well at home and in fact he has not really needed his oxygen much although over the past couple of days he has developed increasing shortness of breath on lesser and lesser exertion. Since that time he has been requiring about 5 L nasal cannula but unfortunately he has gotten progressively more weak as well. Additionally he reports mild orthopnea and lower extremity edema, which prompted him to come to the emergency department today. On arrival to triage he was tachycardic and was found to be in atrial fibrillation with rapid ventricular response for which he has been started on a Cardizem drip. He also received a nebulizer treatment as well as a dose of Lasix and he feels somewhat better at the time my evaluation. In fact he was resting quite comfortably when I entered the room. His only complaint at this time is that of being hungry. He has had a mild, nonproductive cough which is not necessarily unusual for him. He denies feelings of racing heart, fluttering, and palpitations. No chest pain or pleuritic pain. He denies nausea and vomiting. Review of Systems Review of Systems: Twelve systems were reviewed. No fever, chills, or sweats. No syncope or near syncope. He denies sinus congestion, rhinorrhea, otalgia, and odynophagia. No nausea, vomiting, or diarrhea. No dysuria. No sick contacts. No known exposure to those positive for COVID 19. Denies dysphagia and concerns for aspiration. Except as documented, all other systems were reviewed and are negative. [facility] Past Medical History Medical History (Updated 04/25/21 @ 23:29 by Bharati Tripathi PA-C) Cerebrovascular accident (~05/2018) With global aphasia, much improved with mild expressive aphasia. Chronic anemia Chronic atrial fibrillation With failed cardiac ablation and cardioversion on several occasions. On long-term Coumadin for stroke prophylaxis. 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 Vasquez at [facility] ([facility] Chronic respiratory failure with hypoxia, on home oxygen therapy 3 L nasal cannula with rest p.r.n. 4 L bleed in at nighttime. Congestive heart failure Echocardiogram on 03/27/2021 showed an enlarged left ventricular chamber with normal LV systolic function and an estimated EF of 55 to 60%, diastolic dysfunction, moderately enlarged right ventricular chamber, reduced RV systolic function, biatrial enlargement, mild regurgitation of annuloplasty ring of a prosthetic mitral valve, and mild pulmonary hypertension with an estimated pulmonary arterial systolic pressure of 44 mmHg. Coronary artery disease (~2001) Status post three-vessel bypass. Depression with anxiety Essential hypertension Hyperlipidemia Hyperthyroidism MRSA colonization Obstructive sleep apnea Approved for trilogy unit in February 2020. Osteoarthritis Type 2 diabetes mellitus Hemoglobin A1c was 6.4% on 03/26/2021. Valvular heart disease Status post mitral valve repair. Surgical History Surgical History History of coronary artery bypass graft x 3 History of mitral valve repair Family History Family History Father Family history of cardiovascular disease Family history of malignant neoplasm of bone Mother Family history of malignant neoplasm Sibling Family history of cardiovascular disease Social History Social History (Update
[2021-04-25] MEDS: ALPRAZolam (*CRX) 0.25 MG TABLET 0.5 MG PO (22:37)
[2021-04-26] VITALS (13 sets, daily range): BP systolic 97–117; BP diastolic 53–79; PULSE 90–121; RESP 16–20; TEMP 36.1–36.4; O2SAT 95–100
--- NOTE | 2021-04-26 00:48 | ADMGEN ---
This patient, John Peters, was admitted to IMU Room 201-01 on 04/25/21 at 2345. Patient/family oriented to hospital policies and general routines including ID bracelet, bed and alarms, visiting hours, pain management, procedures, bathroom and other care routines, personal items, smoking policy, room service/diet, and visiting hours. Information on how to activate the Rapid Response Team has been discussed. Patient/Family are encouraged to report perceived risks to care and to ask questions if they do not understand what they are told or what they should do.
[2021-04-26] MEDS: HYDROmorphone HCL INJ (*CRX) 1 MG/ML SYR IV PUSH (02:18)
[2021-04-26 05:24] LABS: Hemoglobin 9.5 g/dL (14.0-18.0); Mean Corpuscular HGB Conc 31.7 g/dl (32-36); Mean Corpuscular Hemoglobin 29.5 pg (26-34); Mean Corpuscular Volume 93.2 fl (80-100); Mean Platelet Volume 9.2 fl (7.4-10.4); Platelet Count Result 193 k/mm3 (150-375); Red Blood Count 3.22 M/mm3 (4.6-6.20); Red Cell Distribution Width 14.5 % (11.5-14.5); White Blood Count 7.7 K/mm3 (4.5-10.0)
[2021-04-26 05:29] LABS: Alanine Aminotransferase 42 U/L (4-50); Albumin Level 3.7 g/dL (3.5-5.1); Alkaline Phosphatase 99 U/L (38-126); Anion Gap 7 mmol/L (8-16); Aspartate Amino Transferase 27 U/L (17-59); Bilirubin,Total 0.4 mg/dL (0.2-1.3); Blood Urea Nitrogen 22 mg/dL (9-20); Calcium 8.5 mg/dL (8.4-10.2); Carbon Dioxide 33 mmol/L (22-30); Chloride 95 mmol/L (98-107); Estimated CRCL calculation 86 ml/min; Estimated Glomerular Filt Rate > 60; Glucose 256 mg/dL (65-110); Magnesium 2.3 mg/dL (1.6-2.3); Potassium 3.7 mmol/L (3.4-5.0); Sodium 135 mmol/L (137-145)
[2021-04-26 05:51] LABS: Free T4 Free Thyroxine 0.73 ng/mL (0.78-2.19)
--- NOTE | 2021-04-26 07:31 | PM.IMPN ---
Progress Note: A&P Assessment and Plan (1) Atrial fibrillation with rapid ventricular response: Code(s): I48.91 - Unspecified atrial fibrillation Status: Acute (2) CHF exacerbation: Code(s): I50.9 - Heart failure, unspecified Status: Acute (3) Chronic respiratory failure with hypoxia, on home oxygen therapy: Code(s): J96.11 - Chronic respiratory failure with hypoxia; Z99.81 - Dependence on supplemental oxygen Status: Chronic (4) Hyperthyroidism: Code(s): E05.90 - Thyrotoxicosis, unspecified without thyrotoxic crisis or storm Status: Chronic Assessment and Plan: tsh 1.37, t4 0.73 (5) Obstructive sleep apnea: Code(s): G47.33 - Obstructive sleep apnea (adult) (pediatric) Status: Acute (6) Type 2 diabetes mellitus: Code(s): E11.9 - Type 2 diabetes mellitus without complications Status: Acute (7) Chronic anemia: Code(s): D64.9 - Anemia, unspecified Status: Acute Additional Plan Decompensated CHF: pulm edema on cxr, BNP 1290, exertional dyspnea; 40 IV BID lasix, fl restrict diet, monitor I&O; wean off 3L as tolerated; obtain covid swab to ensure not contributing to resp failure; hold kalpana and other hypertensives for now in setting of SBP in 90s AFib RVR: chronic afib; currently on Dilt drip, cardiology on board, appreciate recommendations regarding converting to po; Eliquis held for drop in hgb Normocytic anemia: chronically hgb between 10-13, slightly low 9.5; will discuss any possible source of bleed; b12 and folate normal in 2020; will obtain iron studies and reticulocyte count HERNAN: CPAP at night, ordered; patient also can bring Trilogy from home if he prefers. DM2: sliding scale insulin Subjective Date/time seen: 04/26/21 07:31 3L NC for respiratory support no additional complaints - breathing greatly improved Review of Systems Review of Systems: All systems reviewed & are unremarkable except as noted in HPI and below Exam Const: General: no acute distress Neck: Neck: no JVD Resp: Effort & Inspection: normal respiratory effort Auscultation: clear to auscultation bilaterally Cardio: Rate: regular rate Rhythm: regular rhythm GI: GI Palp: Yes Soft to palpation and No Tenderness to palpation present (GI) Objective Data Vital Signs Vital Signs: Vital Signs - 24 hr 04/25/21 13:54 04/25/21 13:55 04/25/21 14:01 Temperature 98.3 F Pulse Rate 121 H 140 H 120 H Respiratory Rate 24 H 23 H Blood Pressure 137/77 Pulse Oximetry 87 L 94 04/25/21 14:15 04/25/21 14:24 04/25/21 14:30 Temperature Pulse Rate 117 H 119 H 116 H Respiratory Rate 18 23 H 16 Blood Pressure 109/58 L Pulse Oximetry 93 100 04/25/21 14:31 04/25/21 14:35 04/25/21 14:45 Temperature Pulse Rate 121 H 124 H Respiratory Rate 13 16 20 Blood Pressure 105/64 Pulse Oximetry 100 04/25/21 14:53 04/25/21 14:55 04/25/21 14:58 Temperature Pulse Rate 129 H 130 H Respiratory Rate 15 18 Blood Pressure 135/73 135/73 Pulse Oximetry 93 94 92 04/25/21 15:00 04/25/21 15:01 04/25/21 15:08 Temperature Pulse Rate 126 H 122 H 124 H Respiratory Rate 19 20 16 Blood Pressure 146/78 H Pulse Oximetry 92 92 04/25/21 15:15 04/25/21 15:16 04/25/21 15:20 Temperature Pulse Rate 133 H 132 H 130 H Respiratory Rate 16 Blood Pressure 120/75 Pulse Oximetry 99 100 04/25/21 15:30 04/25/21 15:36 04/25/21 15:45 Temperature Pulse Rate 143 H 149 H 142 H Respiratory Rate 26 H 18 19 Blood Pressure 137/79 Pulse Oximetry 96 93 04/25/21 15:46 04/25/21 15:49 04/25/21 15:58 Temperature Pulse Rate 159 H 144 H 143 H Respiratory Rate 22 H 16 16 Blood Pressure 129/78 Pulse Oximetry 04/25/21 16:00 04/25/21 16:01 04/25/21 16:15 Temperature Pulse Rate 141 H 146 H 152 H Respiratory Rate 15 17 17 Blood Pressure 116/59 L Pulse Oximetry 99 04/25/21 16:16 04/25/21 16:30 04/25/21 16:31
[2021-04-26] MEDS: INSULIN ASPART (*BKC) 100 UNITS/ML SUB-Q ×3 (09:06→18:32)
[2021-04-26] MEDS: HYDROcodone/acetaminophen (*CRX) 7.5-325 MG TABLET 1 TAB PO ×3 (09:07→21:43)
[2021-04-26] MEDS: NICOTINE (*PBKC) 21 MG PATCH 1 PATCH TRANSDERM (09:08)
[2021-04-26] MEDS: FUROSEMIDE INJ 40 MG/4 ML VIAL IV PUSH (09:08)
[2021-04-26 09:24] LABS: Glucose Point of Care 206 mg/dl (65-105)
--- NOTE | 2021-04-26 10:18 | PM.CNCAR ---
Assessment and Plan Additional Plan 60-year-old man with: Shortness of breath with modest exacerbation of CHF. His pathology is well worked up in delineated I do not think he needs any additional workup here. Echocardiogram done last month demonstrated normal left ventricular systolic function but dilated and dysfunctional right ventricle. His repaired mitral valve is working well. I believe I would recommend resuming his metoprolol and diltiazem for rate control and switching him to intravenous Bumex to try to improve his shortness of breath. I will also resume his systemic anticoagulation with apixaban. He seems to be field for taking this medication. I would have a high degree of suspicion that his frequent readmissions are likely due to medical non adherence in this setting. Osman Henao MD [facility] History of Present Illness History of Present Illness Consult date/time: 04/26/21 10:18 Consult reason: atrial fibrillation and congestive heart failure Reason For Visit: hypoxia Narrative: This is a 60-year-old man who is of relatively well known to physicians here at [facility] and apparently recently transitioned his cardiovascular care to Dr. Spence of our practice. He came to the emergency room yesterday afternoon because of symptoms of progressive shortness of breath that started about 3 days before his presentation. He states that that before that in early than the weekend last weekend he was doing relatively well with his breathing he notices gradual worsening in shortness of breath and of eventually came to the hospital yesterday. He is not noticing any orthopnea or PND he is not having any chest pain. He does not have any sense of palpitations. In the emergency room he was evaluated he was felt to be in atrial fibrillation with rapid ventricular response and modest congestive heart failure by exam and by x-ray. He was asleep admitted to the IMU. I do not know this patient well but his chart has been reviewed. He has a history of coronary heart disease valvular heart disease and chronic atrial fibrillation. He had a prior CVA as well. According to the records he underwent surgical myocardial revascularization and mitral valve repair about 10 years ago. He also had a history of atrial fibrillation for many years which was initially paroxysmal but has been chronic for a number of years as ablation and cardioversion have failed to restore sinus rhythm. He previously followed with a blunger loader at [facility] as stated above has recently transitioned his care to our practice. The patient in my opinion seems to be a rather questionable historian he does describe the symptoms fairly well but he does not really recall seeing my partner in the office even though he saw him in the office earlier this year. He seems to be relatively unaware of his medical regimen he also indicated that he is fearful of taking his anticoagulant because of the hemorrhagic complications. He states he lives alone in his own home but his brother is involved in his health and helps him obtain his medications. He then states he does not trust his brother to provide the correct medications. It is my opinion that it is unclear if he is taking his home medical regimen are not. In this setting he is being seen in consultation today. His home medical regimen includes a fairly high dose of metoprolol, a modest dose of diltiazem and 1 mg of Bumex q.12 hours as well as anticoagulation with apixaban. Following admission yesterday he was placed on a diltiazem infusion and IV furosemide 40 mg q.12 hours. His beta-jose and anticoagulant have not been reordered. His telemetry shows that he is in atrial fibrillation with a heart rate of about 105. Review of Systems Constitutional: Constitutional: Reports weakness Eyes: Eyes: Reports no additional eye complaints ENT: Reports system reviewed and no additional complaints, except as documented Cardiovascular:
[2021-04-26 12:29] LABS: Hematocrit 33.1 % (42.0-52.0); Hemoglobin 10.5 g/dL (14.0-18.0)
[2021-04-26 13:20] LABS: Glucose Point of Care 228 mg/dl (65-105)
[2021-04-26] MEDS: BUMETANIDE INJ 1 MG/4 ML VIAL IV PUSH (15:52)
[2021-04-26 17:01] LABS: Glucose Point of Care 229 mg/dl (65-105)
[2021-04-26 17:04] LABS: SARS-CoV-2 RNA PCR Negative
--- NOTE | 2021-04-26 18:52 | PC.NURSE ---
This patient, John Peters, was transferred to [facility] on 04/26/21 at 1845. Personal belongings sent with patient. Report given to Lauryn ZAMBRANO. Appropriate documentation sent with patient.
[2021-04-26] MEDS: ALPRAZolam (*CRX) 0.5 MG TABLET PO (20:01)
[2021-04-26] MEDS: METOPROLOL TARTRATE 50 MG TAB 100 MG PO (20:01)
[2021-04-26] MEDS: APIXABAN 5 MG TABLET PO (20:01)
[2021-04-26 20:51] LABS: Glucose Point of Care 143 mg/dl (65-105)
[2021-04-27] VITALS (18 sets, daily range): BP systolic 98–137; BP diastolic 65–88; PULSE 97–131; RESP 14–20; TEMP 35.8–36.9; O2SAT 96–98
[2021-04-27] MEDS: ALBUTEROL SULFATE NEB 2.5 MG/0.5 ML INH INHALATION ×4 (00:31→19:42)
[2021-04-27] MEDS: IPRATROPIUM BR 0.02% INH SOLN 0.5 MG/2.5 ML VIAL INHALATION ×4 (00:32→19:42)
[2021-04-27] MEDS: ALPRAZolam (*CRX) 0.5 MG TABLET PO ×4 (02:12→18:23)
[2021-04-27] MEDS: HYDROcodone/acetaminophen (*CRX) 7.5-325 MG TABLET 1 TAB PO ×3 (04:10→20:43)
[2021-04-27 06:22] LABS: Basophils Percent Auto 0.3 % (0.2-1.2); Eosinophils Percent Auto 0.1 % (0-4.4); Immature Granulocyte Absolute 0.12 K/mm3 (0.00-0.031); Immature Granulocyte Percent A 1.1 % (0-0.5); Lymphocytes Absolute Auto 0.96 K/mm3 (0.9-3.2); Lymphocytes Percent Auto 9.1 % (18.3-44.2); Mean Corpuscular HGB Conc 31.3 g/dl (32-36); Mean Corpuscular Hemoglobin 29.9 pg (26-34); Mean Corpuscular Volume 95.5 fl (80-100); Mean Platelet Volume 9.2 fl (7.4-10.4); Monocytes Absolute Auto 0.7 K/mm3 (0.1-0.6); Monocytes Percent Auto 6.8 % (2.6-8.5); Neutrophils Absolute Auto 8.8 K/mm3 (1.3-6.7); Neutrophils Percent Auto 82.6 % (45.5-73.1); Nucleated Red Blood Cells Perc 0.2 % (0.0-0.2); Platelet Count Result 225 k/mm3 (150-375); Red Blood Count 3.35 M/mm3 (4.6-6.20); Red Cell Distribution Width 14.7 % (11.5-14.5); White Blood Count 10.6 K/mm3 (4.5-10.0)
[2021-04-27 06:35] LABS: Alanine Aminotransferase 48 U/L (4-50); Albumin Level 3.6 g/dL (3.5-5.1); Alkaline Phosphatase 89 U/L (38-126); Anion Gap 8 mmol/L (8-16); Aspartate Amino Transferase 35 U/L (17-59); Bilirubin,Total 0.4 mg/dL (0.2-1.3); Blood Urea Nitrogen 24 mg/dL (9-20); Calcium 8.2 mg/dL (8.4-10.2); Carbon Dioxide 32 mmol/L (22-30); Chloride 95 mmol/L (98-107); Estimated CRCL calculation 111 ml/min; Estimated Glomerular Filt Rate > 60; Glucose 270 mg/dL (65-110); Magnesium 2.2 mg/dL (1.6-2.3); Phosphorus 2.3 mg/dL (2.5-4.5); Potassium 3.9 mmol/L (3.4-5.0); Sodium 135 mmol/L (137-145)
--- NOTE | 2021-04-27 08:13 | PM.PNCARD ---
Progress Note: A&P Additional Plan 60-year-old man with: Coronary artery disease remote history of bypass grafting and mitral valve repair as well as chronic atrial fibrillation. Patient has right ventricular dysfunction and edema on the basis of this. Regarding his frequent readmissions it seems relatively clear in my opinion that he is not capable of taking his medical regimen reliably at home. This is the only reasonable explanation for these frequent readmissions in my opinion. He is was still somewhat edematous but given his severe RV dysfunction I doubt that will be completely resolvable. There is clearly some underlying psychiatric issues going on here that are beyond the scope of my evaluation. I mention this because I seriously doubt this gentleman is capable of following his medical regimen when he is not in the hospital and he seems paranoid about the treatment that he is receiving in the hospital. Osman Henao MD [facility] Subjective Date/time seen: Date of service:04/27/21 08:13 Interval history: Follow-up visit in this 60-year-old man with: Chronic atrial fibrillation coronary artery disease with previous bypass surgery and previous mitral valve repair. Patient has been admitted here frequently with shortness of breath some evidence of decompensated heart failure and RVR with his atrial fibrillation. This is almost certainly the result of medical noncompliance. date of service 04/27/2021: Patient is comfortable sitting in his bed eating his breakfast. He seems to be unhappy that he is not receiving any of his cardiac medications and he does not believe that he is receiving good care and would like to be discharged. From my review of the chart it seems that his medications are ordered he persistent his statements that he is not receiving his medications and is unhappy with his treatment. Once again the patient speaks for a long time about his brother and is of the opinion that he is not receiving appropriate care apparently his brother assist him with arranging his medications at home. Exam Const: General: comfortable and no acute distress Other: Obese unkempt gentleman no distress HENMT: Mouth: Yes moist mucous membranes Eyes: Sclera: sclerae normal Pupils: Equal, round and reactive pupils present Neck: Neck: supple Other: no obvious venous distention somewhat difficult exam with his obesity Resp: Effort & Inspection: normal respiratory effort Other: breath sounds are relatively clear bilaterally Cardio: Rhythm: abnormal rhythm irregularly irregular GI: GI Palp: Yes Soft to palpation Auscultation: normal bowel sounds Neuro: Cognition (Neuro): abnormal cognition Extrem: General: normal to inspection Other: moderate chronic edema persists Objective Data Vital Signs Vital Signs: Vital Signs - 24 hr 04/26/21 10:00 04/26/21 12:00 04/26/21 16:00 Temperature 36.3 C L 36.4 C Pulse Rate 92 95 116 H Respiratory Rate 16 20 Blood Pressure 107/69 102/61 Pulse Oximetry 100 99 04/26/21 20:00 04/26/21 20:01 04/27/21 00:00 Temperature 36.1 C L 36.9 C Pulse Rate 117 H 117 H 126 H Respiratory Rate 20 18 Blood Pressure 117/79 107/65 Pulse Oximetry 100 96 04/27/21 00:35 04/27/21 00:45 04/27/21 04:00 Temperature Pulse Rate 105 H 110 H 108 H Respiratory Rate 18 18 Blood Pressure Pulse Oximetry 04/27/21 04:13 04/27/21 08:00 04/27/21 08:04 Temperature 36.6 C Pulse Rate 128 H 107 H 107 H Respiratory Rate 20 18 18 Blood Pressure 137/88 Pulse Oximetry 97 97 04/27/21 08:07 Temperature Pulse Rate 111 H Respiratory Rate 20 Blood Pressure Pulse Oximetry Intake/Output Intake/Output: Intake & Output 04/24/21 04/25/21 04/26/21 04/27/21 23:59 23:59 23:59 23:59 Intake Total 1420 450 Output Total 049 3825 Balance -750 -2405 450 Meds/Results Medications: Active Medications Generic Name Dose Route Start Last Admin Trade Name Darin
[2021-04-27 08:38] LABS: Glucose Point of Care 234 mg/dl (65-105)
[2021-04-27] MEDS: dilTIAZem HCL CD 180 MG CAP.ER.24H PO (09:39)
[2021-04-27] MEDS: METOPROLOL TARTRATE 50 MG TAB 100 MG PO ×2 (09:39→20:42)
[2021-04-27] MEDS: BUMETANIDE INJ 1 MG/4 ML VIAL IV PUSH ×2 (09:40→18:24)
[2021-04-27] MEDS: NICOTINE (*PBKC) 21 MG PATCH 1 PATCH TRANSDERM (09:40)
[2021-04-27] MEDS: APIXABAN 5 MG TABLET PO ×2 (09:40→20:43)
[2021-04-27] MEDS: INSULIN ASPART (*BKC) 100 UNITS/ML SUB-Q (09:40)
--- NOTE | 2021-04-27 09:55 | PM.IMPN ---
Progress Note: A&P Assessment and Plan (1) Atrial fibrillation with rapid ventricular response: Code(s): I48.91 - Unspecified atrial fibrillation Status: Acute (2) CHF exacerbation: Code(s): I50.9 - Heart failure, unspecified Status: Acute (3) Chronic respiratory failure with hypoxia, on home oxygen therapy: Code(s): J96.11 - Chronic respiratory failure with hypoxia; Z99.81 - Dependence on supplemental oxygen Status: Chronic (4) Hyperthyroidism: Code(s): E05.90 - Thyrotoxicosis, unspecified without thyrotoxic crisis or storm Status: Chronic Assessment and Plan: tsh 1.37, t4 0.73 (5) Obstructive sleep apnea: Code(s): G47.33 - Obstructive sleep apnea (adult) (pediatric) Status: Acute (6) Type 2 diabetes mellitus: Code(s): E11.9 - Type 2 diabetes mellitus without complications Status: Acute (7) Chronic anemia: Code(s): D64.9 - Anemia, unspecified Status: Acute Additional Plan 60yo man with chf and afib presenting with SOB & weakness. Found to be in CHF decompensation & AFib with RVR. Decompensated CHF: pulm edema on cxr, BNP 1290, exertional dyspnea; 40 IV BID lasix, fl restrict diet, monitor I&O; wean off 3L as tolerated; COVID negative; hold kalpana and other hypertensives for now in setting of SBP in 90s. Defer to cardiology regarding starting kalpana. AFib RVR: chronic afib; has been transitioned off of dilt drip, cardiology on board, titrating metoprolol - 100 BID tartrate rt now; 5 Q12 Eliquis Normocytic anemia: chronically hgb between 10-13, slightly low 9.5; will discuss any possible source of bleed; b12 and folate normal in 2020; will obtain iron studies and reticulocyte count HERNAN: CPAP at night, ordered; patient also can bring Trilogy from home if he prefers. DM2: sliding scale insulin Disposition: Per cardiology - serious doubt if patient can properly administer medications at home. May help explain frequent readmissions. Will discuss options with care coordination, incl home health or snf. Time Spent With Patient Time with patient: less than 15 minutes Subjective Date/time seen: 04/27/21 09:55 no acute medical complaints feeling like breathing at or near baseline Review of Systems Review of Systems: All systems reviewed & are unremarkable except as noted in HPI and below Exam Const: General: no acute distress Neck: Neck: no JVD Resp: Effort & Inspection: normal respiratory effort Auscultation: clear to auscultation bilaterally Cardio: Rate: regular rate Rhythm: regular rhythm GI: GI Palp: Yes Soft to palpation and No Tenderness to palpation present (GI) Objective Data Vital Signs Vital Signs: Vital Signs - 24 hr 04/26/21 10:00 04/26/21 12:00 04/26/21 16:00 Temperature 97.4 F L 97.6 F Pulse Rate 92 95 116 H Respiratory Rate 16 20 Blood Pressure 107/69 102/61 Pulse Oximetry 100 99 04/26/21 20:00 04/26/21 20:01 04/27/21 00:00 Temperature 97 F L 98.4 F Pulse Rate 117 H 117 H 126 H Respiratory Rate 20 18 Blood Pressure 117/79 107/65 Pulse Oximetry 100 96 04/27/21 00:35 04/27/21 00:45 04/27/21 04:00 Temperature Pulse Rate 105 H 110 H 108 H Respiratory Rate 18 18 Blood Pressure Pulse Oximetry 04/27/21 04:13 04/27/21 08:00 04/27/21 08:04 Temperature 98 F Pulse Rate 128 H 107 H 107 H Respiratory Rate 20 18 18 Blood Pressure 137/88 Pulse Oximetry 97 97 04/27/21 08:07 04/27/21 09:39 Temperature Pulse Rate 111 H 111 H Respiratory Rate 20 Blood Pressure Pulse Oximetry Intake/Output Intake/Output: Intake & Output 04/24/21 04/25/21 04/26/21 04/27/21 23:59 23:59 23:59 23:59 Intake Total 1420 930 Output Total 750 3825 Balance -750 -2405 930 Meds/Results Medications: Active Medications Generic Name Dose Route Start Last Admin Trade Name Freq PRN Reason Stop Dose Admin Hydrocodone Bitart/Acetaminophen 1 tab 04/26/21 08:04 04/11
[2021-04-27 10:47] LABS: Iron 60 ug/dL (49-181)
[2021-04-27 10:56] LABS: Transferrin 227 mg/dL (206-381)
[2021-04-27 11:02] LABS: Percent Iron Saturation 17 % (20-50)
[2021-04-27 12:05] LABS: Glucose Point of Care 192 mg/dl (65-105)
--- NOTE | 2021-04-27 16:56 | PCRCNOTE ---
Window of time for administration has passed. See next scheduled administration.
[2021-04-27 18:02] LABS: Glucose Point of Care 169 mg/dl (65-105)
[2021-04-27 20:47] LABS: Glucose Point of Care 153 mg/dl (65-105)
[2021-04-28] VITALS (10 sets, daily range): BP systolic 92–122; BP diastolic 52–69; PULSE 70–121; RESP 12–20; TEMP 36.6; O2SAT 97
[2021-04-28] MEDS: IPRATROPIUM BR 0.02% INH SOLN 0.5 MG/2.5 ML VIAL INHALATION ×2 (02:16→07:59)
[2021-04-28] MEDS: ALBUTEROL SULFATE NEB 2.5 MG/0.5 ML INH INHALATION ×2 (02:16→07:59)
[2021-04-28] MEDS: HYDROcodone/acetaminophen (*CRX) 7.5-325 MG TABLET 1 TAB PO ×2 (03:41→10:12)
[2021-04-28 06:23] LABS: Basophils Absolute Auto 0.1 K/mm3 (0.0-0.1); Basophils Percent Auto 0.7 % (0.2-1.2); Eosinophils Absolute Auto 0.2 K/mm3 (0-0.3); Eosinophils Percent Auto 2.1 % (0-4.4); Hematocrit 33.2 % (42.0-52.0); Hemoglobin 10.3 g/dL (14.0-18.0); Immature Granulocyte Absolute 0.24 K/mm3 (0.00-0.031); Immature Granulocyte Percent A 3.2 % (0-0.5); Lymphocytes Absolute Auto 1.17 K/mm3 (0.9-3.2); Lymphocytes Percent Auto 15.5 % (18.3-44.2); Mean Corpuscular Hemoglobin 29.3 pg (26-34); Mean Corpuscular Volume 94.3 fl (80-100); Mean Platelet Volume 8.8 fl (7.4-10.4); Monocytes Absolute Auto 0.6 K/mm3 (0.1-0.6); Monocytes Percent Auto 7.8 % (2.6-8.5); Neutrophils Absolute Auto 5.3 K/mm3 (1.3-6.7); Neutrophils Percent Auto 70.7 % (45.5-73.1); Nucleated Red Blood Cells Perc 0.4 % (0.0-0.2); Platelet Count Result 228 k/mm3 (150-375); Red Blood Count 3.52 M/mm3 (4.6-6.20); Red Cell Distribution Width 14.9 % (11.5-14.5); White Blood Count 7.5 K/mm3 (4.5-10.0)
[2021-04-28 06:41] LABS: Alanine Aminotransferase 44 U/L (4-50); Albumin Level 3.6 g/dL (3.5-5.1); Alkaline Phosphatase 74 U/L (38-126); Anion Gap 7 mmol/L (8-16); Aspartate Amino Transferase 31 U/L (17-59); Bilirubin,Total 0.6 mg/dL (0.2-1.3); Blood Urea Nitrogen 25 mg/dL (9-20); Calcium 8.1 mg/dL (8.4-10.2); Carbon Dioxide 33 mmol/L (22-30); Chloride 96 mmol/L (98-107); Estimated CRCL calculation 99 ml/min; Estimated Glomerular Filt Rate > 60; Glucose 206 mg/dL (65-110); Phosphorus 3.6 mg/dL (2.5-4.5); Potassium 3.6 mmol/L (3.4-5.0); Sodium 136 mmol/L (137-145)
[2021-04-28 07:55] LABS: Glucose Point of Care 162 mg/dl (65-105)
[2021-04-28] MEDS: METOPROLOL TARTRATE 50 MG TAB 100 MG PO (09:02)
[2021-04-28] MEDS: APIXABAN 5 MG TABLET PO (09:03)
[2021-04-28] MEDS: NICOTINE (*PBKC) 21 MG PATCH 1 PATCH TRANSDERM (09:03)
[2021-04-28] MEDS: dilTIAZem HCL CD 180 MG CAP.ER.24H PO (09:03)
[2021-04-28] MEDS: BUMETANIDE INJ 1 MG/4 ML VIAL IV PUSH (09:03)
[2021-04-28] MEDS: ALPRAZolam (*CRX) 0.5 MG TABLET PO (09:05)
--- NOTE | 2021-04-28 10:05 | PM.PNCARD ---
Progress Note: A&P Assessment and Plan (1) Atrial fibrillation with RVR: Code(s): I48.91 - Unspecified atrial fibrillation Status: Acute Assessment and Plan: Chronic atrial fibrillation reasonably rate controlled on metoprolol and diltiazem. He does become mildly tachycardic with activity but he tells me he is not symptomatic with this. Continue current doses of metoprolol and diltizem. 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 No signs or symptoms of adverse bleeding. (3) Congestive heart failure: Code(s): I50.9 - Heart failure, unspecified Status: Acute Assessment and Plan: This is stable. He does still have some LE edema but no evidence of volume overload on pulmonary exam. Continue bumex 1mg p.o. b.i.d., metolazone 5mg p.o. QMWF Additional Plan Subjective Date/time seen: 04/28/21 10:05 Interval history: Follow-up visit in this 60-year-old man with: Chronic atrial fibrillation coronary artery disease with previous bypass surgery and previous mitral valve repair. Patient has been admitted here frequently with shortness of breath some evidence of decompensated heart failure and RVR with his atrial fibrillation. This is almost certainly the result of medical noncompliance. date of service 04/27/2021: Patient is comfortable sitting in his bed eating his breakfast. He seems to be unhappy that he is not receiving any of his cardiac medications and he does not believe that he is receiving good care and would like to be discharged. From my review of the chart it seems that his medications are ordered he persistent his statements that he is not receiving his medications and is unhappy with his treatment. Once again the patient speaks for a long time about his brother and is of the opinion that he is not receiving appropriate care apparently his brother assist him with arranging his medications at home. Date of service 04/28/2021: Review of Systems Constitutional: Constitutional: Reports weakness Eyes: Eyes: Reports no additional eye complaints ENT: Reports system reviewed and no additional complaints, except as documented Cardiovascular: Cardiovascular: Reports as per HPI and Reports dyspnea Respiratory: Respiratory: Reports dyspnea Gastrointestinal: Gastrointestinal: Reports no additional gastrointestinal complaints Musculoskeletal: Musculoskeletal: Reports no additional musculoskeletal complaints Integumentary/Breasts: Skin/Breast: Reports system reviewed and no additional complaints, except as docu Neurologic: Reports system reviewed and no additional complaints, except as documented and Reports weakness Endocrine: Endocrine: Reports no additional endocrine complaints Hematologic/Lymphatic: Hematologic/Lymphatic: Reports no additional hematologic/lymphatic complaints Allergic/Immunologic: Allergic/Immunologic: Reports no additional allergic/immunologic complaints Exam Const: General: comfortable and no acute distress Other: Obese gentleman sitting on the edge of the bed. Alert and oriented. Pleasant and cooperative. HENMT: Head: normal to inspection Mouth: Yes moist mucous membranes Eyes: Sclera: sclerae normal Pupils: Equal, round and reactive pupils present Neck: Neck: supple and no JVD Resp: Effort & Inspection: normal respiratory effort Cardio: Rate: regular rate Rhythm: abnormal rhythm irregularly irregular Heart sounds: no murmurs GI: Auscultation: normal bowel sounds Skin: General skin exam: normal color Neuro: Cranial nerves: Yes Equal, round and reactive pupils present Cognition (Neuro): normal cognition and abnormal cognition Extrem: General: abnormal to inspection and edema
--- NOTE | 2021-04-28 10:41 | PC.NURSE ---
Patient refuses flu vaccine, states he has already received this.
--- NOTE | 2021-05-07 18:50 | PM.DS ---
DS: Admitting Diagnosis Discharge Date 04/28/21 Admitting Diagnosis Congestive heart failure decompensation, atrial fib with rapid ventricular response DS: Discharge Diagnosis Discharge Diagnosis (1) CHF exacerbation: Code(s): I50.9 - Heart failure, unspecified Status: Acute DS: Summary Hospital Course Reason for hospitalization: Shortness of breath and weakness Hospital Course: Patient is 60-year-old man with congestive heart failure and atrial fibrillation presenting with shortness of breath and weakness. Found to be in CHF decompensation with AFib with rapid ventricular response. Decompensated congestive heart failure likely as evidenced by pulmonary edema on chest x-ray and BNP of 1290, treated with IV diuresis and fluid restricted diet, was able to wean off of 3 L oxygen requirement at time of discharge. For atrial fibrillation, was initially on diltiazem drip, however transitioned to metoprolol tartrate. Continued Eliquis. Patient has normocytic anemia chronically, which was monitored without acute drops in patient continue CPAP for HERNAN, and sliding scale insulin while here an outpatient diabetes management per outpatient team. Discussed several options regarding placement, however patient mom very resolute that wants to return home, and can take care himself, and that is from we discharged him. Status at Discharge Functional status at discharge: independent ambulation Time Spent with Patient Time attestation: Total time spent providing and/or coordinating discharge services: Time spent: Less than 30 minutes Exam Const: General: no acute distress Neck: Neck: no JVD Resp: Effort & Inspection: normal respiratory effort Auscultation: clear to auscultation bilaterally Cardio: Rate: regular rate Rhythm: regular rhythm GI: GI Palp: Yes Soft to palpation and No Tenderness to palpation present (GI) Discharge Plan Discharge Attending physician on discharge: Otto Patel Consulting providers: Osman Henao ; Bharati Tripathi ; Charli Griffiths ; Sridhar Mckinney ; Radha Beltre Discharging Clinician: Otto Patel Anticipated Discharge Date/Time: 04/28/21 09:40 Patient Disposition: Home Health Service Activity: no shower, no straining and no driving Diet: as tolerated, heart healthy, diabetic, low cholesterol and low fat Discharge Instructions: Per Care Coordination, patient to discharge with [facility] ([phone]) for PT/OT and intermediate for medication management and monitoring. Patient Instructions: Antibiotic Form, Apixaban (By mouth), Heart Failure (DC), A-fib (Atrial Fibrillation) (DC), Pain Management (DC), Hypoxia (GEN) Stand Alone Forms: General Discharge Information Follow-up/Referrals: Osman Henao MD [Physician] - Valdo Wu DO [Primary Care Provider] - Discharge Medications: Continued metformin 500 mg tablet 500 mg PO Q12H RF: 0 atorvastatin 20 mg tablet 20 mg PO QNOON RF: 0 metolazone 5 mg tablet 5 mg PO QMWF RF: 0 potassium chloride 20 mEq tablet,ER particles/crystals 20 meq PO Q12H RF: 0 aspirin [Children's Aspirin] 81 mg tablet,chewable 81 mg PO QNOON RF: 0 bumetanide 1 mg tablet 1 mg PO BID RF: 0 methimazole 10 mg tablet 20 mg PO DAILY RF: 0 escitalopram oxalate [Lexapro] 5 mg tablet 5 mg PO HS RF: 0 Eliquis 5 mg tablet 5 mg PO Q12H RF: 0 Anoro Ellipta 62.5-25 mcg/actuation blister with device 1 inh INHALATION DAILY RF: 0 metoprolol tartrate 50 mg tablet 100 mg PO Q12HR Qty: 360 RF: 1 diltiazem HCl 180 mg capsule,ext.rel 24h degradable 180 mg PO QAM Qty: 90 RF: 1 albuterol sulfate 90 mcg/actuation HFA aerosol inhaler 2 puff inhalation Q4H PRN (Reason: Shortness Of Breath Or Wheezing) Qty: 8 RF: 3 hydrocodone-acetaminophen 7.5-325 mg tablet 1 tablet PO Q8H PRN (Reason: pain) Qty: 90 RF: 0 No Action alprazolam 0.5 mg tablet 0.5 mg PO
== END 2021-04-28 12:00 | disposition home health service (06) ==
LOC: ANHED 16:57 → ANHIMU 04-26 01:30 → ANH3MED 04-27 22:26 → ANHIMU 04-30 11:51
PROVIDERS: Physician Assistant; Admitting Provider Internal Medicine; Emergency Provider Emergency Medicine; PCP Internal Medicine; Visit Provider Internal Medicine
DX: I48.91 Unspecified atrial fibrillation (principal); I50.9 Heart failure, unspecified; I11.0 Hypertensive heart disease with heart failure; G47.33 Obstructive sleep apnea (adult) (pediatric); J96.11 Chronic respiratory failure with hypoxia; I25.10 Atherosclerotic heart disease of native coronary artery without angina pectoris; D64.9 Anemia, unspecified; E05.90 Thyrotoxicosis, unspecified without thyrotoxic crisis or storm; E11.9 Type 2 diabetes mellitus without complications; Z87.891 Personal history of nicotine dependence; Z99.81 Dependence on supplemental oxygen; Z86.73 Personal history of transient ischemic attack (TIA), and cerebral infarction without residual deficits; Z79.84 Long term (current) use of oral hypoglycemic drugs; Z20.822 Contact with and (suspected) exposure to COVID-19
CPT/HCPCS: 36415; 36600; 71045; 80048; 80053; 81001; 82728; 82805; 82948; 83540; 83550; 83735; 83880; 84100; 84439; 84443; 84466; 84484; 85014; 85018; 85025; 85027; 85610; 85730; 93005; 94640; 96365; 96366; 96368; 96375; 96376; 99285; A9270; C9803; G0378; J0131; J1170; J1815; J1940; U0003; U0005

== ENCOUNTER 2021-05-10 20:35 | Inpatient (IN) | payer MEDICARE, MEDICAID, SELFPAY ==
--- NOTE | ~2021-05-10 | XR_ITS ---
XR chest 2V 05/10/2021 21:05 Indication: Midsternal chest pain. Nausea, vomiting and diarrhea. Procedure: 2 view chest Comparison: 04/25/2021 Findings: Status post median sternotomy for CABG. Mild cardiomegaly. No focal air space disease, pulm onary edema, pleural effusion or suspected pneumothorax. Impression: 1: No acute cardiopulmonary disease. Reviewed, dictated and finalized at location A. Impression: 1: No acute cardiopulmonary disease.
--- NOTE | 2021-05-10 20:37 | ECG_ITS ---
Measurements Intervals [place] Rate: 114 P: CA: 0 QRS: 94 QRSD: 97 T: -9 QT: 430 QTc: 594 Interpretive Statements ATRIAL FIBRILLATION WITH RAPID VENTRICULAR RESPONSE RIGHT AXIS DEVIATION BORDERLINE ST-T WAVE ABNORMALITY- ANTEROLAT/INF LEADS BASELINE ARTIFACT- I, II, III, AVR, AVL, V5-V6 ABNORMAL ECG Electronically Signed On 05-11-2021 7:32:58 CDT by Charli Griffiths D.O.
[2021-05-10 20:42] VITALS: BP 123/80; PULSE 108; RESP 18; TEMP 37.1; O2SAT 97
[2021-05-10] MEDS: ASPIRIN 81 MG CHEWABLE TABLET 324 MG PO (20:53)
[2021-05-10 21:00] LABS: Basophils Absolute Auto 0.1 K/mm3 (0.0-0.1); Basophils Percent Auto 0.5 % (0.2-1.2); Eosinophils Percent Auto 0.2 % (0-4.4); Hematocrit 43.4 % (42.0-52.0); Hemoglobin 14.6 g/dL (14.0-18.0); Immature Granulocyte Absolute 0.05 K/mm3 (0.00-0.031); Immature Granulocyte Percent A 0.4 % (0-0.5); Lymphocytes Absolute Auto 1.23 K/mm3 (0.9-3.2); Lymphocytes Percent Auto 9.5 % (18.3-44.2); Mean Corpuscular HGB Conc 33.6 g/dl (32-36); Mean Corpuscular Hemoglobin 29.3 pg (26-34); Mean Platelet Volume 9.9 fl (7.4-10.4); Monocytes Percent Auto 7.8 % (2.6-8.5); Neutrophils Absolute Auto 10.5 K/mm3 (1.3-6.7); Neutrophils Percent Auto 81.6 % (45.5-73.1); Platelet Count Result 302 k/mm3 (150-375); Red Blood Count 4.99 M/mm3 (4.6-6.20); Red Cell Distribution Width 13.8 % (11.5-14.5); White Blood Count 12.9 K/mm3 (4.5-10.0)
[2021-05-10 21:15] LABS: INR 1.2; Prothrombin Time 14.6 Seconds (11.1-14.7)
[2021-05-10 21:16] LABS: Partial Thromboplastin Time 31.9 SECONDS (22.3-36.8)
[2021-05-10 21:20] LABS: Anion Gap 19 mmol/L (8-16); Blood Urea Nitrogen 24 mg/dL (9-20); Calcium 10.2 mg/dL (8.4-10.2); Carbon Dioxide 30 mmol/L (22-30); Chloride 80 mmol/L (98-107); Estimated CRCL calculation 84 ml/min; Estimated Glomerular Filt Rate > 60; Glucose 248 mg/dL (65-110); Potassium 2.5 mmol/L (3.4-5.0); Sodium 129 mmol/L (137-145)
[2021-05-10 21:26] LABS: Troponin I < 0.012 ng/mL (0.000-0.034)
[2021-05-10 21:31] VITALS: O2SAT 97
[2021-05-10] MEDS: SODIUM CHLORIDE 0.9% IV 1,000 ML 999 ML IV CONT (21:38)
[2021-05-10] MEDS: POTASSIUM CHLORIDE 20 MEQ TABLET 40 MEQ PO (21:39)
[2021-05-10 22:15] VITALS: PULSE 92; RESP 14; O2SAT 97
[2021-05-10] MEDS: fentaNYL CITRATE INJ (*CRX) 100 MCG/2 ML VIAL 50 MCG IV PUSH (22:21)
[2021-05-10] MEDS: ONDANSETRON INJ 4 MG/2 ML VIAL IV PUSH (22:22)
[2021-05-10 23:08] VITALS: BP 104/76; PULSE 91; RESP 15; O2SAT 98
--- NOTE | 2021-05-10 23:14 | ED.GENADULT ---
HPI - General Adult General Chief complaint: Chest Pain Stated complaint: chest pain Time Seen by Provider: 05/10/21 20:50 History of Present Illness HPI narrative: Patient is a 60-year-old male who presents ER with multiple complaints. Reports over the last week he has had numerous episodes of emesis and diarrhea. He has not been able to eat or drink due to this. He also has developed epigastric and central chest pain. No radiation. Has history of heart disease. No fevers or chills or sweats. No known sick contacts. Family is present and concerned patient may be abusing alprazolam. He is due for a refill on 05/16, however he thinks medication should have lasted longer as patient has had recurrent hospitalizations, and he is currently out of his medication. Patient cannot elaborate on these details, he is unsure if he could be withdrawing or not. Related Data Home Medications Medication Instructions Recorded Confirmed Anoro Ellipta 1 inh INHALATION DAILY 04/26/21 05/11/21 Eliquis 5 mg PO Q12H 04/26/21 05/11/21 aspirin [Children's Aspirin] 81 mg PO QAM 04/26/21 05/11/21 atorvastatin 20 mg PO HS 04/26/21 05/11/21 bumetanide 1 mg PO TID 04/26/21 05/11/21 escitalopram oxalate [Lexapro] 5 mg PO HS 04/26/21 05/11/21 metformin 500 mg PO Q12H 04/26/21 05/11/21 methimazole 20 mg PO DAILY 04/26/21 05/11/21 metolazone 5 mg PO DAILY 04/26/21 05/11/21 potassium chloride 20 meq PO Q12H 04/26/21 05/11/21 alprazolam 0.5 mg tablet 0.5 mg PO TID tablet 04/30/21 05/11/21 Allergies Allergy/AdvReac Type Severity Reaction Status Date / Time morphine AdvReac Unknown Increased Verified 05/10/21 20:54 HR Review of Systems Review of Systems: All systems reviewed & are unremarkable except as noted in HPI and below Constitutional: Constitutional: Denies chills, Reports fatigue, Denies fever(s) and Reports weakness ENT: Denies nasal congestion and Denies sore throat Cardiovascular: Cardiovascular: Reports chest pain, Denies rapid heart rate and Denies radiating jaw, neck or arm pain Gastrointestinal: Gastrointestinal: Reports abdominal pain, Reports diarrhea, Reports nausea and Reports vomiting Genitourinary: Genitourinary: Denies hematuria, Denies dysuria and Denies urinary frequency Musculoskeletal: Musculoskeletal: Denies back pain and Denies muscle cramps PMFSH Past Medical History Medical History Cerebrovascular accident (~05/2018) With global aphasia, much improved with mild expressive aphasia. Chronic anemia Chronic atrial fibrillation With failed cardiac ablation and cardioversion on several occasions. On long-term Coumadin for stroke prophylaxis. Transition Nurse is Dr. Vasquez at [facility]. Chronic respiratory failure with hypoxia, on home oxygen therapy 3 L nasal cannula with rest p.r.n. 4 L bleed in at nighttime. Congestive heart failure Echocardiogram on 03/27/2021 showed an enlarged left ventricular chamber with normal LV systolic function and an estimated EF of 55 to 60%, diastolic dysfunction, moderately enlarged right ventricular chamber, reduced RV systolic function, biatrial enlargement, mild regurgitation of annuloplasty ring of a prosthetic mitral valve, and mild pulmonary hypertension with an estimated pulmonary arterial systolic pressure of 44 mmHg. Coronary artery disease (~2001) Status post three-vessel bypass. Depression with anxiety Essential hypertension Hyperlipidemia Hyperthyroidism MRSA colonization Obstructive sleep apnea Approved for trilogy unit in February 2020. Osteoarthritis Type 2 diabetes mellitus Hemoglobin A1c was 6.4% on 03/26/2021. Valvular heart disease Status post mitral valve repair. Surgical History Surgical History History of coronary artery bypass graft x 3 History of mitral valve repair Family History Family History (Reviewed 05/11/21 @ 02:05 by Martha
--- NOTE | 2021-05-10 23:34 | PM.IMHP ---
H&P: HPI History of Present Illness Date/Time: 05/10/21 23:34 Chief Complaint: Nausea vomiting and diarrhea Narrative: This is a 60-year-old male with past medical history significant for cor pulmonale, mitral valve repair, chronic atrial fibrillation status post multiple cardioversions and ablations, COPD/emphysema, obstructive sleep apnea, coronary artery disease. Patient had a recent hospitalization and discharge as well he comes back today due to nausea vomiting and diarrhea for several days feeling very fatigue and tired and worsening shortness of breath he denies any fevers, any rigors, any chills,any cough ,any sputum production, he has bilateral lower extremity swelling but states that that is his usual, no lightheadedness ,no dizziness ,no syncope ,no near-syncope. Preliminary workup was significant for sodium of 129 chloride of 80 potassium of 2.5 a chest x-ray did not show any acute cardiopulmonary abnormality. Review of Systems Review of Systems: Nausea vomiting and diarrhea of several days duration now unable to eat Constitutional: Constitutional: Denies chills, Reports fatigue, Denies fever(s), Reports lethargy, Reports malaise, Denies night sweats and Reports weakness Eyes: Eyes: Denies change in vision ENT: Denies dysphagia, Denies vertigo, Denies dizziness, Denies nasal congestion, Denies nasal discharge, Denies nasal obstruction and Denies odynophagia Cardiovascular: Cardiovascular: Denies chest pain at rest, Denies irregular heart rhythm, Denies radiating jaw, neck or arm pain, Denies palpitations, Denies dyspnea on exertion and Denies orthopnea Respiratory: Respiratory: Denies cough, Denies dyspnea and Denies wheezing Gastrointestinal: Gastrointestinal: Reports abdominal pain (Epigastric), Reports diarrhea, Reports nausea and Reports vomiting Musculoskeletal: Musculoskeletal: Denies arthralgias Integumentary/Breasts: Skin/Breast: Denies rash and Denies skin ulcer Neurologic: Denies syncope, Denies focal weakness and Denies Sensory deficit (Neuro) Psychiatric: Psychiatric: Reports no additional psychiatric complaints and Reports as per HPI Endocrine: Endocrine: Reports no additional endocrine complaints and Reports as per HPI Hematologic/Lymphatic: Hematologic/Lymphatic: Reports no additional hematologic/lymphatic complaints and Reports as per HPI Allergic/Immunologic: Allergic/Immunologic: Reports no additional allergic/immunologic complaints and Reports as per HPI [facility] Past Medical History Medical History Cerebrovascular accident (~05/2018) With global aphasia, much improved with mild expressive aphasia. Chronic anemia Chronic atrial fibrillation With failed cardiac ablation and cardioversion on several occasions. On long-term Coumadin for stroke prophylaxis. [employer] is Dr. Vasquez at [facility]. Chronic respiratory failure with hypoxia, on home oxygen therapy 3 L nasal cannula with rest p.r.n. 4 L bleed in at nighttime. Congestive heart failure Echocardiogram on 03/27/2021 showed an enlarged left ventricular chamber with normal LV systolic function and an estimated EF of 55 to 60%, diastolic dysfunction, moderately enlarged right ventricular chamber, reduced RV systolic function, biatrial enlargement, mild regurgitation of annuloplasty ring of a prosthetic mitral valve, and mild pulmonary hypertension with an estimated pulmonary arterial systolic pressure of 44 mmHg. Coronary artery disease (~2001) Status post three-vessel bypass. Depression with anxiety Essential hypertension Hyperlipidemia Hyperthyroidism MRSA colonization Obstructive sleep apnea Approved for trilogy unit in February 2020. Osteoarthritis Type 2 diabetes mellitus Hemoglobin A1c was 6.4% on 03/26/2021. Valvular heart disease Status post mitral valve repair. Surgical History Surgical History History of
[2021-05-11] VITALS (25 sets, daily range): BP systolic 99–128; BP diastolic 56–88; PULSE 8–127; RESP 15–22; TEMP 36.3–37.4; O2SAT 96–100; BMI 38.8
[2021-05-11 00:05] LABS: Troponin I < 0.012 ng/mL (0.000-0.034)
--- NOTE | 2021-05-11 02:06 | PC.NURSE ---
This patient, John Peters, was admitted to IMU Room 213-01 on 05/11/21 at 0200. Patient/family oriented to hospital policies and general routines including ID bracelet, bed and alarms, visiting hours, pain management, procedures, bathroom and other care routines, personal items, smoking policy, room service/diet, and visiting hours. Information on how to activate the Rapid Response Team has been discussed. Patient/Family are encouraged to report perceived risks to care and to ask questions if they do not understand what they are told or what they should do.
[2021-05-11] MEDS: HYDROcodone/acetaminophen (*CRX) 5-325 MG TABLET 1 TAB PO ×4 (02:40→19:50)
[2021-05-11 03:18] LABS: Troponin I < 0.012 ng/mL (0.000-0.034)
[2021-05-11] MEDS: NICOTINE (*PBKC) 21 MG PATCH 1 PATCH TRANSDERM (05:43)
[2021-05-11] MEDS: BUMETANIDE 1 MG TABLET PO ×3 (07:57→17:56)
[2021-05-11] MEDS: METOPROLOL TARTRATE 50 MG TAB 100 MG PO ×2 (07:57→21:01)
[2021-05-11] MEDS: dilTIAZem HCL CD 180 MG CAP.ER.24H PO (07:58)
[2021-05-11] MEDS: ASPIRIN 81 MG CHEWABLE TABLET PO (07:58)
[2021-05-11] MEDS: APIXABAN 5 MG TABLET PO ×2 (07:58→21:02)
[2021-05-11] MEDS: methiMAzole 10 MG TAB 20 MG PO (07:58)
[2021-05-11] MEDS: metOLazone 5 MG TABLET PO (07:58)
[2021-05-11] MEDS: POTASSIUM CHLORIDE 20 MEQ TABLET.ER PO (07:58)
[2021-05-11] MEDS: ALPRAZolam (*CRX) 0.5 MG TABLET PO ×2 (07:59→21:01)
[2021-05-11 08:27] LABS: Glucose Point of Care 144 mg/dl (65-105)
[2021-05-11] MEDS: UMECLIDINIUM/VILANTEROL 62.5-25 MCG ELLIPTA 1 PUFF INHALATION (09:50)
[2021-05-11 10:49] LABS: Basophils Absolute Auto 0.1 K/mm3 (0.0-0.1); Basophils Percent Auto 0.6 % (0.2-1.2); Eosinophils Absolute Auto 0.1 K/mm3 (0-0.3); Eosinophils Percent Auto 0.4 % (0-4.4); Hematocrit 42.6 % (42.0-52.0); Hemoglobin 14.4 g/dL (14.0-18.0); Immature Granulocyte Absolute 0.05 K/mm3 (0.00-0.031); Immature Granulocyte Percent A 0.4 % (0-0.5); Lymphocytes Absolute Auto 1.42 K/mm3 (0.9-3.2); Lymphocytes Percent Auto 10.8 % (18.3-44.2); Mean Corpuscular HGB Conc 33.8 g/dl (32-36); Mean Corpuscular Hemoglobin 29.6 pg (26-34); Mean Corpuscular Volume 87.7 fl (80-100); Mean Platelet Volume 9.5 fl (7.4-10.4); Monocytes Absolute Auto 1.1 K/mm3 (0.1-0.6); Neutrophils Absolute Auto 10.5 K/mm3 (1.3-6.7); Neutrophils Percent Auto 79.8 % (45.5-73.1); Platelet Count Result 285 k/mm3 (150-375); Red Blood Count 4.86 M/mm3 (4.6-6.20); White Blood Count 13.1 K/mm3 (4.5-10.0)
[2021-05-11 11:10] LABS: Alanine Aminotransferase 26 U/L (4-50); Albumin Level 4.5 g/dL (3.5-5.1); Alkaline Phosphatase 118 U/L (38-126); Anion Gap 15 mmol/L (8-16); Aspartate Amino Transferase 23 U/L (17-59); Bilirubin,Total 0.6 mg/dL (0.2-1.3); Blood Urea Nitrogen 20 mg/dL (9-20); Calcium 9.7 mg/dL (8.4-10.2); Carbon Dioxide 33 mmol/L (22-30); Chloride 86 mmol/L (98-107); Estimated CRCL calculation 85 ml/min; Estimated Glomerular Filt Rate > 60; Glucose 251 mg/dL (65-110); Sodium 134 mmol/L (137-145)
[2021-05-11 11:17] LABS: Add Urine Microscopic? YES; Appearance Urine Clear (Clear); Bilirubin Urine Negative (Negative); Blood Urine Negative (Negative); Color Urine Straw (Yellow); Glucose Urine UA 3+ mg/dL (Negative); Ketones Urine Negative (Negative); Leukocyte Esterase Ur Negative LEU/UL (NEGATIVE); Nitrate Urine Negative (Negative); Protein Urine Negative (Negative); RBC Urine 0-2 /hpf (0-2); Specific Grav Ur 1.005 (1.001-1.035); Urobilinogen Urine Negative mg/dL (<2.0); WBC Urine 0-3 /hpf (0-3)
[2021-05-11 11:31] LABS: Amphetamine Screen Urine Negative (Negative); Barbiturate Screen Urine Negative (Negative); Benzodiazepines Screen Urine Negative (Negative); Cannabinoid Screen Urine Positive (Negative); Cocaine Screen Urine Negative (Negative); Methadone Screen Urine Negative (Negative); Opiate Screen Urine Positive (Negative); Phencyclidine Screen Urine Negative (Negative)
[2021-05-11 12:03] LABS: Glucose Point of Care 170 mg/dl (65-105)
--- NOTE | 2021-05-11 15:36 | PM.IMPN ---
Progress Note: A&P Assessment and Plan (1) Gastroenteritis: Code(s): K52.9 - Noninfective gastroenteritis and colitis, unspecified Status: Acute (2) Cannabis hyperemesis syndrome concurrent with and due to cannabis abuse: Code(s): F12.188 - Cannabis abuse with other cannabis-induced disorder Status: Acute (3) Hyponatremia: Code(s): E87.1 - Hypo-osmolality and hyponatremia Status: Acute (4) Hypokalemia: Code(s): E87.6 - Hypokalemia Status: Acute (5) Dehydration: Code(s): E86.0 - Dehydration Status: Acute (6) Chronic atrial fibrillation: Code(s): I48.20 - Chronic atrial fibrillation, unspecified Status: Acute (7) Obstructive sleep apnea: Code(s): G47.33 - Obstructive sleep apnea (adult) (pediatric) Status: Acute (8) Chronic anemia: Code(s): D64.9 - Anemia, unspecified Status: Acute (9) Essential hypertension: Code(s): I10 - Essential (primary) hypertension Status: Acute (10) Type 2 diabetes mellitus: Qualifiers: Diabetes mellitus long winder tender insulin use: with long winder tender use Diabetes mellitus complication status: with other specified complication Qualified Code(s): E11.69 - Type 2 diabetes mellitus with other specified complication; Z79.4 - senior care (current) use of insulin Code(s): E11.9 - Type 2 diabetes mellitus without complications Status: Acute (11) Hyperthyroidism: Code(s): E05.90 - Thyrotoxicosis, unspecified without thyrotoxic crisis or storm Status: Acute (12) Chronic atrial fibrillation: Code(s): I48.20 - Chronic atrial fibrillation, unspecified Status: Acute (13) Chronic obstructive pulmonary disease with (acute) exacerbation: Code(s): J44.1 - Chronic obstructive pulmonary disease with (acute) exacerbation Status: Acute (14) CHF (congestive heart failure): Qualifiers: Heart failure chronicity: unspecified Heart failure type: unspecified Qualified Code(s): I50.9 - Heart failure, unspecified Code(s): I50.9 - Heart failure, unspecified Status: Acute (15) Leukocytosis: Qualifiers: Leukocytosis type: unspecified Qualified Code(s): D72.829 - Elevated white blood cell count, unspecified Code(s): D72.829 - Elevated white blood cell count, unspecified Status: Acute (16) High anion gap metabolic acidosis: Code(s): E87.2 - Acidosis Status: Acute (17) Prolonged Q-T interval on ECG: Code(s): R94.31 - Abnormal electrocardiogram [ECG] [EKG] Status: Acute Additional Plan 1. Nausea vomiting possibly secondary to gastroenteritis with concerns for cannabis hyperemesis syndrome: -patient will be started IV Zosyn as ordered to have leukocytosis which is worsening since yesterday -IV Zofran the seed and IM Tigan started p.r.n. for nausea vomiting 2. Dehydration with multiple electrolyte abnormality secondary to 1.: -hold diuretics for now -continue p.o. hydration 3. Metabolic acidosis possibly secondary to lactic acidosis and metabolic alkalosis secondary to diuretic use: -patient presented with high anion gap metabolic acidosis possibly secondary to dehydration. Lactic acid was not evaluated on arrival however it is possible that it might have been elevated -continue to monitor for now 4. Elevated QT interval: -noted to have a QT interval of 594 -will provide IV magnesium 4 mg and replete potassium as well -check magnesium, potassium and phosphorus in a.m. Time Spent With Patient Time with patient: 25 - 35 minutes Subjective Date/time seen: 05/11/21 15:36 Interval history: 60-year-old male with past medical history significant for hypertension, hyperlipidemia, coronary artery disease status post CABG, chronic atrial fibrillation, heart failure with preserved ejection fraction, status post mitral valve repair, COPD, obstructive sleep apnea on CPAP and prior history
[2021-05-11] MEDS: POTASSIUM CHLORIDE 20 MEQ PACKET (FOR LIQUID) 60 MEQ PO (16:29)
[2021-05-11 16:35] LABS: Glucose Point of Care 168 mg/dl (65-105)
[2021-05-11] MEDS: MAGNESIUM SULF 4 GM/WATER100ML 4 GM/100 ML BAG IVPB (16:35)
[2021-05-11 19:48] LABS: Glucose Point of Care 200 mg/dl (65-105)
[2021-05-11] MEDS: ATORVASTATIN 20 MG TABLET PO (21:01)
[2021-05-11] MEDS: ESCITALOPRAM OXALATE 5 MG TABLET PO (21:01)
[2021-05-11 22:05] LABS: Potassium 3.2 mmol/L (3.4-5.0)
[2021-05-12] VITALS (22 sets, daily range): BP systolic 90–110; BP diastolic 52–83; PULSE 72–98; RESP 18–28; TEMP 35.7–36.9; O2SAT 96–100
[2021-05-12 05:11] LABS: Basophils Absolute Auto 0.1 K/mm3 (0.0-0.1); Basophils Percent Auto 0.9 % (0.2-1.2); Eosinophils Absolute Auto 0.2 K/mm3 (0-0.3); Eosinophils Percent Auto 1.8 % (0-4.4); Hemoglobin 13.9 g/dL (14.0-18.0); Immature Granulocyte Absolute 0.05 K/mm3 (0.00-0.031); Immature Granulocyte Percent A 0.5 % (0-0.5); Lymphocytes Absolute Auto 1.31 K/mm3 (0.9-3.2); Lymphocytes Percent Auto 12.5 % (18.3-44.2); Mean Corpuscular HGB Conc 33.1 g/dl (32-36); Mean Corpuscular Hemoglobin 29.5 pg (26-34); Mean Corpuscular Volume 89.2 fl (80-100); Mean Platelet Volume 9.7 fl (7.4-10.4); Monocytes Absolute Auto 1.2 K/mm3 (0.1-0.6); Monocytes Percent Auto 11.3 % (2.6-8.5); Neutrophils Absolute Auto 7.6 K/mm3 (1.3-6.7); Platelet Count Result 276 k/mm3 (150-375); Red Blood Count 4.71 M/mm3 (4.6-6.20); Red Cell Distribution Width 13.9 % (11.5-14.5); White Blood Count 10.5 K/mm3 (4.5-10.0)
[2021-05-12] MEDS: HYDROcodone/acetaminophen (*CRX) 5-325 MG TABLET 1 TAB PO ×3 (05:17→21:24)
[2021-05-12 05:20] LABS: Alanine Aminotransferase 28 U/L (4-50); Albumin Level 4.1 g/dL (3.5-5.1); Alkaline Phosphatase 115 U/L (38-126); Anion Gap 11 mmol/L (8-16); Aspartate Amino Transferase 24 U/L (17-59); Bilirubin,Total 0.5 mg/dL (0.2-1.3); Blood Urea Nitrogen 23 mg/dL (9-20); Calcium 9.2 mg/dL (8.4-10.2); Carbon Dioxide 32 mmol/L (22-30); Chloride 88 mmol/L (98-107); Creatine Kinase 28 U/L (55-170); Estimated CRCL calculation 77 ml/min; Estimated Glomerular Filt Rate > 60; Glucose 157 mg/dL (65-110); Magnesium 2.8 mg/dL (1.6-2.3); Phosphorus 4.2 mg/dL (2.5-4.5); Sodium 131 mmol/L (137-145)
[2021-05-12 08:21] LABS: Glucose Point of Care 122 mg/dl (65-105)
[2021-05-12] MEDS: ASPIRIN 81 MG CHEWABLE TABLET PO (09:18)
[2021-05-12] MEDS: dilTIAZem HCL CD 180 MG CAP.ER.24H PO (09:18)
[2021-05-12] MEDS: APIXABAN 5 MG TABLET PO ×2 (09:19→21:15)
[2021-05-12] MEDS: METOPROLOL TARTRATE 50 MG TAB 100 MG PO ×2 (09:19→21:15)
[2021-05-12] MEDS: POTASSIUM CHLORIDE 20 MEQ TABLET.ER PO ×2 (09:19→18:57)
[2021-05-12] MEDS: BUMETANIDE 1 MG TABLET PO ×3 (09:19→18:57)
[2021-05-12] MEDS: methiMAzole 10 MG TAB 20 MG PO (09:20)
[2021-05-12] MEDS: NICOTINE (*PBKC) 21 MG PATCH 1 PATCH TRANSDERM (09:21)
[2021-05-12] MEDS: UMECLIDINIUM/VILANTEROL 62.5-25 MCG ELLIPTA 1 PUFF INHALATION (09:29)
[2021-05-12] MEDS: ALPRAZolam (*CRX) 0.5 MG TABLET PO ×2 (09:34→21:14)
--- NOTE | 2021-05-12 09:59 | ECG_ITS ---
Measurements Intervals [place] Rate: 85 P: AL: 0 QRS: 97 QRSD: 102 T: 72 QT: 391 QTc: 466 Interpretive Statements ATRIAL FIBRILLATION RIGHT AXIS DEVIATION BORDERLINE T WAVE ABNORMALITY- HIGH LATERAL LEADS BASELINE ARTIFACT- I, III, AVR, AVL, AVF ABNORMAL ECG Electronically Signed On 05-12-2021 14:25:43 CDT by Charli Griffiths D.O.
[2021-05-12 11:42] LABS: Glucose Point of Care 166 mg/dl (65-105)
[2021-05-12] MEDS: POTASSIUM CHLORIDE 20 MEQ PACKET (FOR LIQUID) 60 MEQ PO (14:03)
[2021-05-12 14:33] LABS: Anion Gap 12 mmol/L (8-16); Blood Urea Nitrogen 24 mg/dL (9-20); Carbon Dioxide 35 mmol/L (22-30); Chloride 84 mmol/L (98-107); Estimated CRCL calculation 71 ml/min; Estimated Glomerular Filt Rate > 60; Glucose 163 mg/dL (65-110); Potassium 2.9 mmol/L (3.4-5.0); Sodium 131 mmol/L (137-145)
[2021-05-12 16:56] LABS: Glucose Point of Care 196 mg/dl (65-105)
[2021-05-12 17:13] LABS: Anion Gap 10 mmol/L (8-16); Blood Urea Nitrogen 24 mg/dL (9-20); Calcium 8.6 mg/dL (8.4-10.2); Carbon Dioxide 30 mmol/L (22-30); Chloride 89 mmol/L (98-107); Estimated CRCL calculation 66 ml/min; Estimated Glomerular Filt Rate 56; Glucose 190 mg/dL (65-110); Potassium 3.4 mmol/L (3.4-5.0); Sodium 129 mmol/L (137-145)
--- NOTE | 2021-05-12 19:35 | PM.IMPN ---
Progress Note: A&P Assessment and Plan (1) Prolonged Q-T interval on ECG: Code(s): R94.31 - Abnormal electrocardiogram [ECG] [EKG] Status: Resolved (2) Chronic atrial fibrillation: Code(s): I48.20 - Chronic atrial fibrillation, unspecified Status: Acute (3) Dehydration: Code(s): E86.0 - Dehydration Status: Acute (4) Hypokalemia: Code(s): E87.6 - Hypokalemia Status: Acute (5) Cannabis hyperemesis syndrome concurrent with and due to cannabis abuse: Code(s): F12.188 - Cannabis abuse with other cannabis-induced disorder Status: Acute (6) Hyponatremia: Code(s): E87.1 - Hypo-osmolality and hyponatremia Status: Acute (7) Gastroenteritis: Code(s): K52.9 - Noninfective gastroenteritis and colitis, unspecified Status: Acute (8) Chronic respiratory failure with hypoxia, on home oxygen therapy: Code(s): J96.11 - Chronic respiratory failure with hypoxia; Z99.81 - Dependence on supplemental oxygen Status: Chronic (9) Essential hypertension: Code(s): I10 - Essential (primary) hypertension Status: Acute (10) Chronic anemia: Code(s): D64.9 - Anemia, unspecified Status: Acute (11) Type 2 diabetes mellitus: Qualifiers: 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 insulin use: with equipment operator intermodal yard use Diabetes mellitus complication status: with other specified complication Qualified Code(s): E11.69 - Type 2 diabetes mellitus with other specified complication; Z79.4 - long-term (current) use of insulin Code(s): E11.9 - Type 2 diabetes mellitus without complications Status: Acute (12) Hyperthyroidism: Code(s): E05.90 - Thyrotoxicosis, unspecified without thyrotoxic crisis or storm Status: Acute (13) Congestive heart failure: Qualifiers: Heart failure type: diastolic Heart failure chronicity: chronic Qualified Code(s): I50.32 - Chronic diastolic (congestive) heart failure Code(s): I50.9 - Heart failure, unspecified Status: Acute (14) Chronic obstructive pulmonary disease, unspecified: Qualifiers: COPD type: unspecified COPD Qualified Code(s): J44.9 - Chronic obstructive pulmonary disease, unspecified Code(s): J44.9 - Chronic obstructive pulmonary disease, unspecified Status: Chronic (15) Major depressive disorder, single episode, unspecified: Qualifiers: Active/Remission status: remission status unspecified Qualified Code(s): F32.9 - Major depressive disorder, single episode, unspecified Code(s): F32.9 - Major depressive disorder, single episode, unspecified Status: Acute (16) HERNAN (obstructive sleep apnea): Code(s): G47.33 - Obstructive sleep apnea (adult) (pediatric) Status: Acute (17) Status post aorto-coronary artery bypass graft: Code(s): Z95.1 - Presence of aortocoronary bypass graft Status: Acute Additional Plan 1. Nausea vomiting possibly secondary to gastroenteritis with concerns for cannabis hyperemesis syndrome: -patient will be started IV Zosyn as ordered to have leukocytosis which is worsening since yesterday -IV Zofran the seed and IM Tigan started p.r.n. for nausea vomiting 2. Dehydration with multiple electrolyte abnormality secondary to 1.: -hold diuretics for now -will give a bolus of 500 mL patient is noted to be hypotensive 3. Metabolic acidosis possibly secondary to lactic acidosis and metabolic alkalosis secondary to diuretic use: -patient presented with high anion gap metabolic acidosis possibly secondary to dehydration. Lactic acid was not evaluated on arrival however it is possible that it might have been elevated -continue to monitor for now 4. Elevated QT interval-resolved: -noted to have a QT interval of 594 -provided with IV magnesium 4 mg and repleted potassium as well -QT interval this morning noted to be 466 Time Spent With Patient Time with patient: 15 - 25 m
[2021-05-12] MEDS: SODIUM CHLORIDE 0.9% IV 500 ML IV CONT (20:19)
[2021-05-12 20:34] LABS: Glucose Point of Care 233 mg/dl (65-105)
[2021-05-12] MEDS: ESCITALOPRAM OXALATE 5 MG TABLET PO (21:15)
[2021-05-12] MEDS: ATORVASTATIN 20 MG TABLET PO (21:15)
[2021-05-13] VITALS (21 sets, daily range): BP systolic 95–118; BP diastolic 47–91; PULSE 76–97; RESP 18–26; TEMP 36.2–36.8; O2SAT 95–100
[2021-05-13] MEDS: HYDROcodone/acetaminophen (*CRX) 5-325 MG TABLET 1 TAB PO ×3 (01:47→14:22)
[2021-05-13 05:40] LABS: Basophils Absolute Auto 0.1 K/mm3 (0.0-0.1); Basophils Percent Auto 1.1 % (0.2-1.2); Eosinophils Absolute Auto 0.2 K/mm3 (0-0.3); Hematocrit 40.2 % (42.0-52.0); Hemoglobin 13.3 g/dL (14.0-18.0); Immature Granulocyte Absolute 0.06 K/mm3 (0.00-0.031); Immature Granulocyte Percent A 0.6 % (0-0.5); Lymphocytes Absolute Auto 1.49 K/mm3 (0.9-3.2); Lymphocytes Percent Auto 14.6 % (18.3-44.2); Mean Corpuscular HGB Conc 33.1 g/dl (32-36); Mean Corpuscular Hemoglobin 29.1 pg (26-34); Monocytes Absolute Auto 0.9 K/mm3 (0.1-0.6); Monocytes Percent Auto 9.1 % (2.6-8.5); Neutrophils Absolute Auto 7.5 K/mm3 (1.3-6.7); Neutrophils Percent Auto 72.6 % (45.5-73.1); Platelet Count Result 258 k/mm3 (150-375); Red Blood Count 4.57 M/mm3 (4.6-6.20); Red Cell Distribution Width 13.6 % (11.5-14.5); White Blood Count 10.2 K/mm3 (4.5-10.0)
[2021-05-13 06:03] LABS: Alanine Aminotransferase 36 U/L (4-50); Alkaline Phosphatase 113 U/L (38-126); Anion Gap 15 mmol/L (8-16); Aspartate Amino Transferase 31 U/L (17-59); Bilirubin,Total 0.5 mg/dL (0.2-1.3); Blood Urea Nitrogen 26 mg/dL (9-20); CRP 0.9 mg/dL (<1.0); Calcium 8.3 mg/dL (8.4-10.2); Carbon Dioxide 30 mmol/L (22-30); Chloride 87 mmol/L (98-107); Creatine Kinase 23 U/L (55-170); Estimated CRCL calculation 71 ml/min; Estimated Glomerular Filt Rate > 60; Glucose 184 mg/dL (65-110); Potassium 2.9 mmol/L (3.4-5.0); Sodium 132 mmol/L (137-145)
[2021-05-13] MEDS: UMECLIDINIUM/VILANTEROL 62.5-25 MCG ELLIPTA 1 PUFF INHALATION (08:08)
[2021-05-13 08:10] LABS: Glucose Point of Care 181 mg/dl (65-105)
[2021-05-13] MEDS: ALPRAZolam (*CRX) 0.5 MG TABLET PO ×2 (08:13→20:20)
[2021-05-13] MEDS: POTASSIUM CHLORIDE 20 MEQ TABLET.ER PO ×2 (08:13→17:10)
[2021-05-13] MEDS: BUMETANIDE 1 MG TABLET PO (08:13)
[2021-05-13] MEDS: methiMAzole 10 MG TAB 20 MG PO (08:14)
[2021-05-13] MEDS: HYDROcodone/acetaminophen (*CRX) 7.5-325 MG TABLET 1 TAB PO ×2 (08:14→17:08)
[2021-05-13] MEDS: ASPIRIN 81 MG CHEWABLE TABLET PO (08:14)
[2021-05-13] MEDS: METOPROLOL TARTRATE 50 MG TAB 100 MG PO ×2 (08:15→20:21)
[2021-05-13] MEDS: dilTIAZem HCL CD 180 MG CAP.ER.24H PO (08:15)
[2021-05-13] MEDS: APIXABAN 5 MG TABLET PO ×2 (08:15→20:20)
[2021-05-13] MEDS: NICOTINE (*PBKC) 21 MG PATCH 1 PATCH TRANSDERM (08:16)
[2021-05-13 09:54] LABS: Phosphorus 3.2 mg/dL (2.5-4.5)
[2021-05-13 09:57] LABS: Lactic Acid Reflex 1.9 mmol/L (0.7-2.1)
[2021-05-13] MEDS: SODIUM CHLORIDE 0.9% IV 1,000 ML 999 ML IV CONT (10:39)
[2021-05-13 12:15] LABS: Glucose Point of Care 196 mg/dl (65-105)
--- NOTE | 2021-05-13 17:34 | PM.IMPN ---
Progress Note: A&P Assessment and Plan (1) Hypotension: Qualifiers: Hypotension type: unspecified hypotension type Qualified Code(s): I95.9 - Hypotension, unspecified Code(s): I95.9 - Hypotension, unspecified Status: Acute (2) Hypokalemia: Code(s): E87.6 - Hypokalemia Status: Acute (3) Prolonged Q-T interval on ECG: Code(s): R94.31 - Abnormal electrocardiogram [ECG] [EKG] Status: Resolved (4) Cannabis hyperemesis syndrome concurrent with and due to cannabis abuse: Code(s): F12.188 - Cannabis abuse with other cannabis-induced disorder Status: Acute (5) assisted (current) use of anticoagulants: Code(s): Z79.01 - marine oil terminal superintendent (current) use of anticoagulants Status: Acute (6) Type 2 diabetes mellitus: Qualifiers: Diabetes mellitus extermination inspector insulin use: with extermination inspector use Diabetes mellitus complication status: with other specified complication Qualified Code(s): E11.69 - Type 2 diabetes mellitus with other specified complication; Z79.4 - assisted (current) use of insulin Code(s): E11.9 - Type 2 diabetes mellitus without complications Status: Acute (7) Obstructive sleep apnea: Code(s): G47.33 - Obstructive sleep apnea (adult) (pediatric) Status: Acute (8) Chronic atrial fibrillation: Code(s): I48.20 - Chronic atrial fibrillation, unspecified Status: Acute (9) Congestive heart failure: Qualifiers: Heart failure type: diastolic Heart failure chronicity: chronic Qualified Code(s): I50.32 - Chronic diastolic (congestive) heart failure Code(s): I50.9 - Heart failure, unspecified Status: Acute (10) Metabolic encephalopathy: Code(s): G93.41 - Metabolic encephalopathy Status: Acute (11) Leukocytosis: Qualifiers: Leukocytosis type: unspecified Qualified Code(s): D72.829 - Elevated white blood cell count, unspecified Code(s): D72.829 - Elevated white blood cell count, unspecified Status: Acute (12) Mixed hyperlipidemia: Code(s): E78.2 - Mixed hyperlipidemia Status: Chronic (13) HERNAN (obstructive sleep apnea): Code(s): G47.33 - Obstructive sleep apnea (adult) (pediatric) Status: Acute (14) Status post aorto-coronary artery bypass graft: Code(s): Z95.1 - Presence of aortocoronary bypass graft Status: Acute (15) Type 2 diabetes mellitus without complication, without long-term current use of insulin: Code(s): E11.9 - Type 2 diabetes mellitus without complications Status: Chronic (16) Respiratory failure with hypoxia: Qualifiers: Chronicity: acute on chronic Qualified Code(s): J96.21 - Acute and chronic respiratory failure with hypoxia Code(s): J96.91 - Respiratory failure, unspecified with hypoxia Status: Acute Additional Plan 1. Hypotension: - unsure of the cause; possibly sec to Metoprolol and Cardizem use - ECHO from 03/27/2021 with RV systolic dysfunction; otherwise preserved EF; this could potentially make his BP more labile to fluid changes - will continue to hold Bumex and Metolazone now - received 1.5L bolus since yesterday- would not continue further boluses or fluids at this time - get orthostatic vitals - continue to monitor an additional day due to hypotension today - unfortunately patient's Afib was very hard to be controlled an di he is on maximal dose of Cardizem and Metoprolol; it would be difficult to dial down on the doses as previously has had much trouble with managing his heart rate - patient on both ASA and Eliquis however Hb is stable and no other evidence of bleeding is noted 2. Continued hypokalemia: -persistent hypokalemia despite multiple episodes of repletion - will continue to hold diuretics and schedule PO potassium BID 3. Metabolic acidosis and metabolic alkalosis secondary to diuretic use: -patient presented with high anion gap metabolic a
[2021-05-13] MEDS: POTASSIUM CHLORIDE 20 MEQ PACKET (FOR LIQUID) 40 MEQ PO (18:29)
[2021-05-13] MEDS: INSULIN ASPART (*BKC) 100 UNITS/ML SUB-Q (18:29)
--- NOTE | 2021-05-13 18:49 | PC.NURSE ---
This patient, John Peters, was transferred to [facility] on 05/13/21 at 1840. Personal belongings sent with patient. Report given to Lauryn ZAMBRANO. Appropriate documentation sent with patient.
[2021-05-13 18:53] LABS: Anion Gap 11 mmol/L (8-16); Blood Urea Nitrogen 29 mg/dL (9-20); Calcium 8.2 mg/dL (8.4-10.2); Carbon Dioxide 28 mmol/L (22-30); Chloride 91 mmol/L (98-107); Estimated CRCL calculation 54 ml/min; Estimated Glomerular Filt Rate 44; Glucose 202 mg/dL (65-110); Potassium 3.5 mmol/L (3.4-5.0); Sodium 130 mmol/L (137-145)
[2021-05-13 19:14] LABS: Glucose Point of Care 201 mg/dl (65-105)
[2021-05-13] MEDS: ATORVASTATIN 20 MG TABLET PO (20:20)
[2021-05-13] MEDS: ESCITALOPRAM OXALATE 5 MG TABLET PO (20:20)
[2021-05-13 22:05] LABS: Glucose Point of Care 182 mg/dl (65-105)
[2021-05-14] VITALS (7 sets, daily range): BP systolic 104–112; BP diastolic 69–92; PULSE 77–106; RESP 20; TEMP 36.2; O2SAT 99
[2021-05-14] MEDS: HYDROcodone/acetaminophen (*CRX) 7.5-325 MG TABLET 1 TAB PO (03:13)
[2021-05-14 05:36] LABS: Basophils Percent Auto 0.5 % (0.2-1.2); Eosinophils Absolute Auto 0.2 K/mm3 (0-0.3); Eosinophils Percent Auto 2.6 % (0-4.4); Hematocrit 36.3 % (42.0-52.0); Hemoglobin 11.9 g/dL (14.0-18.0); Immature Granulocyte Absolute 0.05 K/mm3 (0.00-0.031); Immature Granulocyte Percent A 0.6 % (0-0.5); Lymphocytes Absolute Auto 1.17 K/mm3 (0.9-3.2); Lymphocytes Percent Auto 14.4 % (18.3-44.2); Mean Corpuscular HGB Conc 32.8 g/dl (32-36); Mean Corpuscular Volume 91.4 fl (80-100); Mean Platelet Volume 9.9 fl (7.4-10.4); Monocytes Absolute Auto 0.7 K/mm3 (0.1-0.6); Monocytes Percent Auto 8.1 % (2.6-8.5); Neutrophils Percent Auto 73.8 % (45.5-73.1); Platelet Count Result 201 k/mm3 (150-375); Red Blood Count 3.97 M/mm3 (4.6-6.20); White Blood Count 8.2 K/mm3 (4.5-10.0)
[2021-05-14 05:46] LABS: Lactic Acid Reflex 1.8 mmol/L (0.7-2.1)
[2021-05-14 05:47] LABS: Alanine Aminotransferase 33 U/L (4-50); Albumin Level 3.7 g/dL (3.5-5.1); Alkaline Phosphatase 88 U/L (38-126); Anion Gap 12 mmol/L (8-16); Aspartate Amino Transferase 26 U/L (17-59); Bilirubin,Total 0.5 mg/dL (0.2-1.3); Blood Urea Nitrogen 22 mg/dL (9-20); Calcium 8.4 mg/dL (8.4-10.2); Carbon Dioxide 27 mmol/L (22-30); Chloride 94 mmol/L (98-107); Creatine Kinase 24 U/L (55-170); Estimated CRCL calculation 85 ml/min; Estimated Glomerular Filt Rate > 60; Glucose 253 mg/dL (65-110); Magnesium 2.1 mg/dL (1.6-2.3); Potassium 3.5 mmol/L (3.4-5.0); Sodium 133 mmol/L (137-145)
[2021-05-14 07:47] LABS: Glucose Point of Care 162 mg/dl (65-105)
[2021-05-14] MEDS: POTASSIUM CHLORIDE 20 MEQ TABLET.ER PO (08:24)
[2021-05-14] MEDS: APIXABAN 5 MG TABLET PO (08:24)
[2021-05-14] MEDS: dilTIAZem HCL CD 180 MG CAP.ER.24H PO (08:25)
[2021-05-14] MEDS: NICOTINE (*PBKC) 21 MG PATCH 1 PATCH TRANSDERM (08:25)
[2021-05-14] MEDS: ASPIRIN 81 MG CHEWABLE TABLET PO (08:25)
[2021-05-14] MEDS: methiMAzole 10 MG TAB 20 MG PO (08:25)
[2021-05-14] MEDS: METOPROLOL TARTRATE 50 MG TAB 100 MG PO (08:25)
[2021-05-14] MEDS: POTASSIUM CHLORIDE 20 MEQ PACKET (FOR LIQUID) 40 MEQ PO ×2 (08:26→16:07)
[2021-05-14] MEDS: LIDOCAINE 5% PATCH 2 PATCH TRANSDERM (08:28)
[2021-05-14] MEDS: ALPRAZolam (*CRX) 0.5 MG TABLET PO (08:30)
--- NOTE | 2021-05-14 10:33 | PCRCNOTE ---
Window of time for administration has passed. See next scheduled administration.
[2021-05-14] MEDS: HYDROcodone/acetaminophen (*CRX) 5-325 MG TABLET 1 TAB PO ×2 (10:38→15:47)
[2021-05-14 11:44] LABS: Glucose Point of Care 166 mg/dl (65-105)
--- NOTE | 2021-05-14 12:17 | PM.DS ---
DS: Admitting Diagnosis Discharge Date 05/14/2021 Admitting Diagnosis Nausea vomiting DS: Discharge Diagnosis Discharge Diagnosis (1) Cannabis hyperemesis syndrome concurrent with and due to cannabis abuse: Code(s): F12.188 - Cannabis abuse with other cannabis-induced disorder Status: Acute (2) Gastroenteritis: Code(s): K52.9 - Noninfective gastroenteritis and colitis, unspecified Status: Acute (3) Hypokalemia: Code(s): E87.6 - Hypokalemia Status: Acute (4) Dehydration: Code(s): E86.0 - Dehydration Status: Acute (5) Prolonged Q-T interval on ECG: Code(s): R94.31 - Abnormal electrocardiogram [ECG] [EKG] Status: Resolved (6) Hypotension: Qualifiers: Hypotension type: unspecified hypotension type Qualified Code(s): I95.9 - Hypotension, unspecified Code(s): I95.9 - Hypotension, unspecified Status: Acute DS: Summary Hospital Course Reason for hospitalization: Gastroenteritis Dehydration Cannabis hyperemesis syndrome Prolonged QT Hypokalemia Hospital Course: 60-year-old male with past medical history significant for hypertension, hyperlipidemia, coronary artery disease status post CABG, chronic atrial fibrillation, heart failure with preserved ejection fraction, status post mitral valve repair, COPD, obstructive sleep apnea on CPAP and prior history of recent hospitalization apparently his discharge 05/07 after being managed for AFib with RVR) presented with nausea vomiting and worsening shortness of breath. This is being attributed to possible gastroenteritis as patient reports he did consume food from outside and his symptoms seemed to have to abort association with food consumption of food. In addition the urine drug screen is positive for cannabinoids raising concerns for cannabinoid hyperemesis syndrome. In addition patient is noted to have significant electrolyte abnormalities which are resistant to repletion. His diuretics continue to be on hold. Despite multiple repletions to potassium, patient continued to have decreased K levels. He was also noted to have developed hypotension attributed to dehydration, as all three cell lines on CBC were noted to have gone up. He received a bolus of a total of 1.5 L and noted to have improving blood pressures. Of note, his QTC was noted to be 594 which is significantly elevated hence Zofran was discontinued and he received Tigan IM as needed. QTC is return to near normal around 466. He received IV Zosyn for possible gastroenteritis which will be discontinued at the time of discharge. He continued to improve and remained stable and is being discharged in stable condition. I have advised him to stop taking metolazone for now until he sees his PCP or viscosity inspector. He should see his PCP or viscosity inspector within a week after discharge as he also has a history of heart failure and not being on his 2nd diuretic might precipitate this. However is important that he does not take his metolazone his cousins in clinic disturbances which may put his life at risk. He is however understanding that not taking his 2nd diuretic might increase slight risk of heart failure he agrees to it. Status at Discharge Overall status at discharge: patient is progressing back to baseline Time Spent with Patient Time attestation: Total time spent providing and/or coordinating discharge services: Time spent: Greater than 30 minutes Exam Narrative: General: cooperative, comfortable, no acute distress HENMT:appearance normal, both eyes and all related structures; PERRLA; Dry mucous membranes Neck: normal visual inspection, full ROM, no lymphadenopathy, supple and no JVD Resp:decreased breath sounds B/L Heart: S1+S2+0; no MRGs GI: soft to palpation; no tenderness or organomegaly noted General skin exam: Bilateral lower extremity with stable pedal edema and stasis dermatitis noted Neuro: CN II-XII intact;A&Ox3 DS: Data Data Comp
[2021-05-14 16:37] LABS: Glucose Point of Care 175 mg/dl (65-105)
== END 2021-05-14 19:09 | disposition home health service (06) | DRG 391 ==
LOC: ANHED 21:45 → ANHIMU 05-11 01:31 → ANH3MED 05-13 18:42
PROVIDERS: Admitting Provider Internal Medicine; Emergency Provider Emergency Medicine; PCP Internal Medicine; Visit Provider Internal Medicine
DX: K52.9 Noninfective gastroenteritis and colitis, unspecified (principal); G93.41 Metabolic encephalopathy; E87.1 Hypo-osmolality and hyponatremia; J96.11 Chronic respiratory failure with hypoxia; I48.20 Chronic atrial fibrillation, unspecified; I50.32 Chronic diastolic (congestive) heart failure; E87.2 Acidosis; F12.188 Cannabis abuse with other cannabis-induced disorder; E87.6 Hypokalemia; E86.0 Dehydration; I11.0 Hypertensive heart disease with heart failure; E78.5 Hyperlipidemia, unspecified; I25.10 Atherosclerotic heart disease of native coronary artery without angina pectoris; R94.31 Abnormal electrocardiogram [ECG] [EKG]; E11.9 Type 2 diabetes mellitus without complications; G47.33 Obstructive sleep apnea (adult) (pediatric); J44.9 Chronic obstructive pulmonary disease, unspecified; D64.9 Anemia, unspecified; F41.8 Other specified anxiety disorders; M19.90 Unspecified osteoarthritis, unspecified site; I95.2 Hypotension due to drugs; T46.1X5A Adverse effect of calcium-channel blockers, initial encounter; E05.90 Thyrotoxicosis, unspecified without thyrotoxic crisis or storm; D72.829 Elevated white blood cell count, unspecified; M54.9 Dorsalgia, unspecified; G89.29 Other chronic pain; I69.320 Aphasia following cerebral infarction; Z95.1 Presence of aortocoronary bypass graft; Z79.01 Long term (current) use of anticoagulants; Z79.82 Long term (current) use of aspirin; Z99.81 Dependence on supplemental oxygen; Z87.891 Personal history of nicotine dependence
CPT/HCPCS: 36415; 71046; 80048; 80053; 80307; 81001; 82550; 82948; 83605; 83735; 84100; 84132; 84484; 85025; 85610; 85730; 86140; 93005; 94002; 94003; 94640; 96361; 96365; 96366; 96367; 96375; 99285; A9270; G0378; J1815; J2405; J2543; J3010; J3475; J3480; J7030; J7040

== ENCOUNTER 2021-05-20 10:59 | Outpatient (CLI) | payer MEDICARE, MEDICAID, SELFPAY ==
[2021-05-20 11:43] LABS: Anion Gap 7 mmol/L (8-16); Blood Urea Nitrogen 11 mg/dL (9-20); Calcium 9.2 mg/dL (8.4-10.2); Carbon Dioxide 29 mmol/L (22-30); Chloride 101 mmol/L (98-107); Estimated Glomerular Filt Rate > 60; Glucose 130 mg/dL (65-110); Phosphorus 3.8 mg/dL (2.5-4.5); Potassium 4.3 mmol/L (3.4-5.0); Sodium 137 mmol/L (137-145)
== END 2021-05-20 11:00 | disposition home or self-care (01) ==
PROVIDERS: PCP Internal Medicine; Visit Provider Internal Medicine
DX: E87.1 Hypo-osmolality and hyponatremia (principal); E87.6 Hypokalemia; E83.39 Other disorders of phosphorus metabolism
CPT/HCPCS: 36415; 80048; 84100

== ENCOUNTER 2021-05-26 04:04 | Emergency (ER) | payer MEDICARE, MEDICAID, SELFPAY ==
--- NOTE | ~2021-05-26 | CT_ITS ---
EXAMINATION: CT abdomen pelvis w con DATE: 05/26/2021 05:15 INDICATION: Generalized abdominal pain. TECHNIQUE: Computed tomography (CT) of the abdomen and pelvis was performed with 100 mL Omnipaque 350 intravenous contrast. Automated exposure control and iterative reconstruction technique were employe d. The dose-length product was 1397.47 mGy-cm. COMPARISON: CT abdomen and pelvis 09/21/2017, ultrasound kidneys 12/24/2018 FINDINGS: The visualized portions of the lung bases demonstrate mild atelectasis. Calcified bilateral lung nodules and calcified left hilar lymph nodes are consistent with old granulomatous disease. No pleural effusion. There is left atrial enlargement of the heart. There are coronary artery calcificat ions. There are calcifications of the aortic valve. No pericardial effusion. Calcifications in the li abiodun and spleen are consistent with old granulomatous disease. There is a 3 mm cyst in the liver. The gallbladder, pancreas, and right adrenal gland are normal. There is a chronic 2.2 cm mass in left adr enal gland that measured low attenuation on the prior CT, consistent with an adenoma. There are cysts in the kidneys measuring up to 2.1 cm on the left. There is a left inguinal hernia containing fat. T here are no dilated loops of bowel. The appendix is normal. There are no pathologically enlarged lymp h nodes. There is no free intraperitoneal fluid. There is severe lower lumbar spondylosis. IMPRESSION: 1. Left inguinal hernia containing fat. Reviewed, dictated and finalized at location A. [employer]
[2021-05-26 04:21] VITALS: BP 110/83; O2SAT 97
[2021-05-26 04:22] VITALS: BP 110/74; PULSE 88; RESP 14; TEMP 36.6; O2SAT 99
[2021-05-26 04:30] VITALS: O2SAT 93
--- NOTE | 2021-05-26 04:41 | ED.GENADULT ---
HPI - General Adult General Chief complaint: Nausea/Vomiting/Diarrhea Stated complaint: n/v, gen sick case, chills, body aches, back pain Time Seen by Provider: 05/26/21 04:23 History of Present Illness HPI narrative: Patient is a 60-year-old gentleman who presents the emergency department with chief complaint of nausea and vomiting and diarrhea. Patient reports he has been in and out of the hospital after he has had episodes of vomiting and diarrhea is also had an episode of congestive heart failure and hypokalemia. The patient states that he continues to have symptoms this morning started around 6 AM and reports that he has been vomiting since then and unable to keep anything down is also been unable to keep his pain meds down that he takes on a chronic basis. Patient states symptoms or not improved by anything or they worsened by anything. Related Data Home Medications Medication Instructions Recorded Confirmed Anoro Ellipta 1 inh INHALATION DAILY 04/26/21 05/19/21 aspirin [Children's Aspirin] 81 mg PO QAM 04/26/21 05/19/21 atorvastatin 20 mg PO HS 04/26/21 05/19/21 escitalopram oxalate [Lexapro] 5 mg PO HS 04/26/21 05/19/21 metformin 500 mg PO Q12H 04/26/21 05/19/21 methimazole 20 mg PO DAILY 04/26/21 05/19/21 bumetanide 1 mg tablet 2 mg PO ONCE tablet 05/19/21 05/19/21 Allergies Allergy/AdvReac Type Severity Reaction Status Date / Time morphine AdvReac Unknown Increased Verified 05/26/21 04:30 HR Review of Systems Review of Systems: A 10 system review of systems was completed on the patient and is negative except for what is stated in the HPI. Nursing and ancillary documentation was reviewed. [facility] Past Medical History Medical History Cerebrovascular accident (~05/2018) With global aphasia, much improved with mild expressive aphasia. Chronic anemia Chronic atrial fibrillation With failed cardiac ablation and cardioversion on several occasions. On long-term Coumadin for stroke prophylaxis. 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. Chronic respiratory failure with hypoxia, on home oxygen therapy 3 L nasal cannula with rest p.r.n. 4 L bleed in at nighttime. Congestive heart failure Echocardiogram on 03/27/2021 showed an enlarged left ventricular chamber with normal LV systolic function and an estimated EF of 55 to 60%, diastolic dysfunction, moderately enlarged right ventricular chamber, reduced RV systolic function, biatrial enlargement, mild regurgitation of annuloplasty ring of a prosthetic mitral valve, and mild pulmonary hypertension with an estimated pulmonary arterial systolic pressure of 44 mmHg. Coronary artery disease (~2001) Status post three-vessel bypass. Depression with anxiety Essential hypertension Hyperlipidemia Hyperthyroidism MRSA colonization Obstructive sleep apnea Approved for trilogy unit in February 2020. Osteoarthritis Type 2 diabetes mellitus Hemoglobin A1c was 6.4% on 03/26/2021. Valvular heart disease Status post mitral valve repair. Surgical History Surgical History History of coronary artery bypass graft x 3 History of mitral valve repair Family History Family History Father Family history of cardiovascular disease Family history of malignant neoplasm of bone Mother Family history of malignant neoplasm Sibling Family history of cardiovascular disease Social History Social History Social History: Surrogate decision maker: Alton Petres, brother. Code status: Full code. Smoking packs per day: 2 Smoking cigarettes per day: 40.0 Years smoked: 20 Smoking pack-years: 40.00 Smoking status: Former smoker Tobacco type: cigarettes Second hand tobacco smoke exposur
[2021-05-26] MEDS: ONDANSETRON INJ 4 MG/2 ML VIAL IV PUSH (04:42)
[2021-05-26] MEDS: HYDROmorphone HCL INJ (*CRX) 1 MG/ML SYR IV PUSH (04:42)
[2021-05-26 04:43] LABS: Basophils Absolute Auto 0.1 K/mm3 (0.0-0.1); Basophils Percent Auto 0.6 % (0.2-1.2); Eosinophils Absolute Auto 0.2 K/mm3 (0-0.3); Eosinophils Percent Auto 2.1 % (0-4.4); Hematocrit 37.7 % (42.0-52.0); Hemoglobin 12.5 g/dL (14.0-18.0); Immature Granulocyte Absolute 0.02 K/mm3 (0.00-0.031); Immature Granulocyte Percent A 0.2 % (0-0.5); Lymphocytes Absolute Auto 1.19 K/mm3 (0.9-3.2); Lymphocytes Percent Auto 13.3 % (18.3-44.2); Mean Corpuscular HGB Conc 33.2 g/dl (32-36); Mean Corpuscular Hemoglobin 29.8 pg (26-34); Mean Platelet Volume 9.4 fl (7.4-10.4); Monocytes Absolute Auto 0.7 K/mm3 (0.1-0.6); Monocytes Percent Auto 7.4 % (2.6-8.5); Neutrophils Absolute Auto 6.8 K/mm3 (1.3-6.7); Neutrophils Percent Auto 76.4 % (45.5-73.1); Platelet Count Result 184 k/mm3 (150-375); Red Blood Count 4.19 M/mm3 (4.6-6.20); Red Cell Distribution Width 15.1 % (11.5-14.5); White Blood Count 8.9 K/mm3 (4.5-10.0)
[2021-05-26] MEDS: SODIUM CHLORIDE 0.9% IV 1,000 ML 999 ML IV CONT (04:43)
[2021-05-26 04:45] VITALS: O2SAT 97
[2021-05-26 04:52] LABS: INR 1.1; Prothrombin Time 13.9 Seconds (11.1-14.7)
[2021-05-26 04:53] LABS: Partial Thromboplastin Time 33.2 SECONDS (22.3-36.8)
[2021-05-26 04:55] LABS: Lactic Acid Reflex 1.6 mmol/L (0.7-2.1)
[2021-05-26 04:56] LABS: Alanine Aminotransferase 20 U/L (4-50); Albumin Level 4.3 g/dL (3.5-5.1); Alkaline Phosphatase 84 U/L (38-126); Anion Gap 10 mmol/L (8-16); Aspartate Amino Transferase 20 U/L (17-59); Bilirubin,Total 0.3 mg/dL (0.2-1.3); Blood Urea Nitrogen 19 mg/dL (9-20); Calcium 9.5 mg/dL (8.4-10.2); Carbon Dioxide 27 mmol/L (22-30); Chloride 100 mmol/L (98-107); Estimated CRCL calculation 84 ml/min; Estimated Glomerular Filt Rate > 60; Glucose 158 mg/dL (65-110); Lipase 121 U/L (23-300); Magnesium 1.8 mg/dL (1.6-2.3); Potassium 3.6 mmol/L (3.4-5.0); Sodium 137 mmol/L (137-145)
[2021-05-26 05:00] VITALS: BP 112/78; PULSE 91; RESP 16; O2SAT 97
[2021-05-26 05:07] LABS: Troponin I < 0.012 ng/mL (0.000-0.034)
[2021-05-26 06:26] LABS: Add Urine Microscopic? YES; Appearance Urine Clear (Clear); Bilirubin Urine Negative (Negative); Blood Urine Negative (Negative); Color Urine Yellow (Yellow); Glucose Urine UA 2+ mg/dL (Negative); Ketones Urine Negative (Negative); Leukocyte Esterase Ur Negative LEU/UL (Negative); Nitrate Urine Negative (Negative); Protein Urine Negative (Negative); RBC Urine 0-2 /hpf (0-2); Urobilinogen Urine Negative mg/dL (<2.0); WBC Urine 0-3 /hpf
[2021-05-26 06:37] LABS: Amphetamine Screen Urine Negative (Negative); Barbiturate Screen Urine Negative (Negative); Benzodiazepines Screen Urine Negative (Negative); Cannabinoid Screen Urine Negative (Negative); Cocaine Screen Urine Negative (Negative); Methadone Screen Urine Negative (Negative); Opiate Screen Urine Positive (Negative); Phencyclidine Screen Urine Negative (Negative)
[2021-05-26 06:49] LABS: Specific Grav Ur 1.039 (1.001-1.035)
== END 2021-05-26 07:02 | disposition home or self-care (01) ==
PROVIDERS: Emergency Provider Emergency Medicine; PCP Internal Medicine
DX: R11.2 Nausea with vomiting, unspecified (principal); I48.20 Chronic atrial fibrillation, unspecified; J96.11 Chronic respiratory failure with hypoxia; Z99.81 Dependence on supplemental oxygen; I50.9 Heart failure, unspecified; I25.10 Atherosclerotic heart disease of native coronary artery without angina pectoris; I11.0 Hypertensive heart disease with heart failure; E78.5 Hyperlipidemia, unspecified; I69.920 Aphasia following unspecified cerebrovascular disease; E11.9 Type 2 diabetes mellitus without complications; I05.9 Rheumatic mitral valve disease, unspecified; E05.90 Thyrotoxicosis, unspecified without thyrotoxic crisis or storm; G47.33 Obstructive sleep apnea (adult) (pediatric); M19.90 Unspecified osteoarthritis, unspecified site; Z95.1 Presence of aortocoronary bypass graft; Z79.01 Long term (current) use of anticoagulants; Z79.84 Long term (current) use of oral hypoglycemic drugs; Z79.82 Long term (current) use of aspirin; Z87.891 Personal history of nicotine dependence; Z79.899 Other long term (current) drug therapy
CPT/HCPCS: 36415; 74177; 80053; 80307; 81001; 83605; 83690; 83735; 84484; 85025; 85610; 85730; 96361; 96374; 96375; 99284; J1170; J2405; J7030; Q9967

== ENCOUNTER 2021-05-28 03:31 | Emergency (ER) | payer MEDICARE, MEDICAID, SELFPAY ==
[2021-05-28 03:30] VITALS: BP 100/61; PULSE 92; RESP 16; TEMP 36.4; O2SAT 96
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
[2021-05-28] MEDS: CYCLOBENZAPRINE HCL 10 MG TABLET PO (04:52)
[2021-05-28 05:10] VITALS: BP 103/65; PULSE 92; RESP 17; O2SAT 97
== END 2021-05-28 05:06 | disposition home or self-care (01) ==
PROVIDERS: Emergency Provider Emergency Medicine; PCP Internal Medicine
DX: M54.42 Lumbago with sciatica, left side (principal); Z87.891 Personal history of nicotine dependence; I48.91 Unspecified atrial fibrillation; Z79.01 Long term (current) use of anticoagulants; I11.0 Hypertensive heart disease with heart failure; I50.9 Heart failure, unspecified; I25.10 Atherosclerotic heart disease of native coronary artery without angina pectoris; E78.5 Hyperlipidemia, unspecified; G40.909 Epilepsy, unspecified, not intractable, without status epilepticus; E05.90 Thyrotoxicosis, unspecified without thyrotoxic crisis or storm; M19.90 Unspecified osteoarthritis, unspecified site; E11.9 Type 2 diabetes mellitus without complications; Z79.84 Long term (current) use of oral hypoglycemic drugs
CPT/HCPCS: 96372; 99283; A9270; J1100

== ENCOUNTER 2021-06-12 04:12 | Emergency (ER) | payer MEDICARE, MEDICAID, SELFPAY ==
[2021-06-12 04:12] VITALS: BP 123/58; PULSE 111; RESP 22; TEMP 36.2; O2SAT 93
--- NOTE | 2021-06-12 04:31 | ED.GENADULT ---
HPI - General Adult General Chief complaint: Anxiety Stated complaint: anxious Time Seen by Provider: 06/12/21 04:21 History of Present Illness HPI narrative: Patient 60-year-old gentleman who presents the emergency department with complaint of anxiety and not on his pain medication patient reports that his primary care physician will not reorder his pain medicines because he has been taking too much of them. Patient states also they have increased his SSRI and will not rewrite Xanax. Patient states that he has not had his medications in about a week and a half and reports that he had some nausea and vomiting and some diarrhea. Related Data Home Medications Medication Instructions Recorded Confirmed Anoro Ellipta 1 inh INHALATION DAILY 04/26/21 06/03/21 aspirin [Children's Aspirin] 81 mg PO QAM 04/26/21 06/03/21 atorvastatin 20 mg PO HS 04/26/21 06/03/21 metformin 500 mg PO Q12H 04/26/21 06/03/21 methimazole 20 mg PO DAILY 04/26/21 06/03/21 bumetanide 1 mg tablet 2 mg PO ONCE tablet 05/19/21 06/03/21 Allergies Allergy/AdvReac Type Severity Reaction Status Date / Time morphine AdvReac Unknown Increased Verified 06/12/21 04:17 HR Review of Systems Review of Systems: A 10 system review of systems was completed on the patient and is negative except for what is stated in the HPI. Nursing and ancillary documentation was reviewed. [facility] Past Medical History Medical History Cerebrovascular accident (~05/2018) With global aphasia, much improved with mild expressive aphasia. Chronic anemia Chronic atrial fibrillation With failed cardiac ablation and cardioversion on several occasions. On long-term Coumadin for stroke prophylaxis. 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 Chronic respiratory failure with hypoxia, on home oxygen therapy 3 L nasal cannula with rest p.r.n. 4 L bleed in at nighttime. Congestive heart failure Echocardiogram on 03/27/2021 showed an enlarged left ventricular chamber with normal LV systolic function and an estimated EF of 55 to 60%, diastolic dysfunction, moderately enlarged right ventricular chamber, reduced RV systolic function, biatrial enlargement, mild regurgitation of annuloplasty ring of a prosthetic mitral valve, and mild pulmonary hypertension with an estimated pulmonary arterial systolic pressure of 44 mmHg. Coronary artery disease (~2001) Status post three-vessel bypass. Depression with anxiety Essential hypertension Hyperlipidemia Hyperthyroidism MRSA colonization Obstructive sleep apnea Approved for trilogy unit in February 2020. Osteoarthritis Type 2 diabetes mellitus Hemoglobin A1c was 6.4% on 03/26/2021. Valvular heart disease Status post mitral valve repair. Surgical History Surgical History History of coronary artery bypass graft x 3 History of mitral valve repair Family History Family History Father Family history of cardiovascular disease Family history of malignant neoplasm of bone Mother Family history of malignant neoplasm Sibling Family history of cardiovascular disease Social History Social History Social History: Surrogate decision maker: Alton Peters, brother. Code status: Full code. 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 Substance use: never Substance use type: does not use Additional living arrangements comments:
[2021-06-12] MEDS: diphenhydrAMINE HCl INJ 50 MG/ML VIAL IV PUSH (04:53)
[2021-06-12] MEDS: PROCHLORPERAZINE EDISYLATE 10 MG/2 ML VIAL IV PUSH (04:53)
[2021-06-12] MEDS: SODIUM CHLORIDE 0.9% IV 1,000 ML 999 ML IV CONT (04:54)
[2021-06-12 05:05] LABS: Basophils Absolute Auto 0.1 K/mm3 (0.0-0.1); Basophils Percent Auto 0.6 % (0.2-1.2); Eosinophils Absolute Auto 0.3 K/mm3 (0-0.3); Eosinophils Percent Auto 2.5 % (0-4.4); Hematocrit 39.9 % (42.0-52.0); Immature Granulocyte Absolute 0.04 K/mm3 (0.00-0.031); Immature Granulocyte Percent A 0.4 % (0-0.5); Lymphocytes Absolute Auto 1.38 K/mm3 (0.9-3.2); Lymphocytes Percent Auto 13.8 % (18.3-44.2); Mean Corpuscular HGB Conc 32.6 g/dl (32-36); Mean Corpuscular Hemoglobin 29.4 pg (26-34); Mean Corpuscular Volume 90.3 fl (80-100); Mean Platelet Volume 8.9 fl (7.4-10.4); Monocytes Absolute Auto 0.8 K/mm3 (0.1-0.6); Monocytes Percent Auto 7.6 % (2.6-8.5); Neutrophils Absolute Auto 7.5 K/mm3 (1.3-6.7); Neutrophils Percent Auto 75.1 % (45.5-73.1); Platelet Count Result 269 k/mm3 (150-375); Red Blood Count 4.42 M/mm3 (4.6-6.20); Red Cell Distribution Width 15.3 % (11.5-14.5)
[2021-06-12 05:42] LABS: Alanine Aminotransferase 25 U/L (4-50); Albumin Level 4.4 g/dL (3.5-5.1); Alkaline Phosphatase 122 U/L (38-126); Anion Gap 14 mmol/L (8-16); Aspartate Amino Transferase 24 U/L (17-59); Bilirubin,Total 0.7 mg/dL (0.2-1.3); Blood Urea Nitrogen 18 mg/dL (9-20); Calcium 9.9 mg/dL (8.4-10.2); Carbon Dioxide 27 mmol/L (22-30); Chloride 95 mmol/L (98-107); Estimated CRCL calculation 96 ml/min; Estimated Glomerular Filt Rate > 60; Glucose 154 mg/dL (65-110); Lipase 113 U/L (23-300); Potassium 3.5 mmol/L (3.4-5.0); Sodium 136 mmol/L (137-145)
[2021-06-12 06:21] VITALS: PULSE 120; RESP 20; O2SAT 93
--- NOTE | 2021-06-12 06:45 | PC.NURSE ---
RN called pt's brother to come pick him up from the ER. Brother will be by to pharmacy picking tech in a while
== END 2021-06-12 06:24 | disposition home or self-care (01) ==
PROVIDERS: Emergency Provider Emergency Medicine; PCP Internal Medicine
DX: F41.9 Anxiety disorder, unspecified (principal); R11.2 Nausea with vomiting, unspecified; I69.320 Aphasia following cerebral infarction; I48.20 Chronic atrial fibrillation, unspecified; I25.10 Atherosclerotic heart disease of native coronary artery without angina pectoris; I11.0 Hypertensive heart disease with heart failure; I50.9 Heart failure, unspecified; F32.A Depression, unspecified; E78.5 Hyperlipidemia, unspecified; E05.90 Thyrotoxicosis, unspecified without thyrotoxic crisis or storm; G47.33 Obstructive sleep apnea (adult) (pediatric); M19.90 Unspecified osteoarthritis, unspecified site; E11.9 Type 2 diabetes mellitus without complications; Z87.891 Personal history of nicotine dependence; Z86.2 Personal history of diseases of the blood and blood-forming organs and certain disorders involving the immune mechanism; Z86.14 Personal history of Methicillin resistant Staphylococcus aureus infection; Z79.899 Other long term (current) drug therapy; Z79.82 Long term (current) use of aspirin
CPT/HCPCS: 36415; 80053; 83690; 85025; 96361; 96374; 96375; 99284; J0780; J1200; J7030

== ENCOUNTER 2021-07-07 08:25 | Outpatient (CLI) | payer MEDICARE, SELFPAY ==
--- NOTE | ~2021-07-07 | XR_ITS ---
EXAMINATION: XR ankle RT 2V, XR foot RT min 3V DATE: 07/07/2021 08:40 INDICATION: Pain at the right first metatarsophalangeal joint. TECHNIQUE: 1. Anteroposterior and lateral view of the right ankle were obtained. 2. Dorsoplantar, oblique and lateral views of the right foot were obtained. COMPARISON: None. FINDINGS: Alignment of the right foot and ankle is normal. No fracture or osteochondral lesion. Moderate osteoa rthritis at the first metatarsophalangeal joint. Mild osteoarthritis at a few tarsal metatarsal, inte rphalangeal and a few remaining metatarsophalangeal joints. Small Achilles and plantar calcaneal spur s. No ankle joint effusion. The soft tissues are unremarkable. IMPRESSION: 1. Polyarticular osteoarthritis, moderate at the first metatarsophalangeal joint and otherwise mild a t several remaining joints in the mid and forefoot. Reviewed, dictated and finalized at location . [facility] IMPRESSION: 1. Polyarticular osteoarthritis, moderate at the first metatarsophalangeal join t and otherwise mild at several remaining joints in the mid and forefoot.
[2021-07-07 09:13] LABS: CRP 0.6 mg/dL (<1.0); Uric Acid 7.6 mg/dL (3.5-8.5)
== END 2021-07-07 08:26 | disposition home or self-care (01) ==
LOC: ANHIMG 08:27
PROVIDERS: PCP Internal Medicine; Visit Provider Internal Medicine
DX: M19.071 Primary osteoarthritis, right ankle and foot (principal)
CPT/HCPCS: 36415; 73600; 73630; 84550; 86140

== ENCOUNTER 2021-07-17 07:43 | Outpatient (CLI) | payer MEDICARE, SELFPAY ==
--- NOTE | 2021-07-21 20:27 | WPDSIXMINUTE ---
Six Minute Walk Procedure Procedure Performed Pulmonary Stress Test (6 min walk) Six Minute Walk Six Minute Walk: DOS: 07/17/2021 REQUESTING: Dr Osman Buchanan REASON FOR TESTING: COPD SIX MINUTE WALK This test was conducted per ATS guidelines. The study was conducted with the patient breathing room air. Initial saturation is 93% and the pulse is 85. The patient walked for 5 minutes and required 2 short episodes to rest due to back pain. His total time stopped was 15 seconds. His saturation decreased to 88% at the end of 4 minutes and again during recovery. Maximum pulse was 105. Distance walked was 1000 feet/ 304.8 meters. IMPRESSION: Mild desaturation transiently to 88% without renato hypoxemia. He does not meet criteria for supplemental oxygen with exertion. Test was stopped 1 minute early due to back pain. Distance walked is adequate given his age and that he walked 5 minutes instead of 6 minutes.
== END 2021-07-17 07:44 | disposition home or self-care (01) ==
PROVIDERS: PCP Internal Medicine; Visit Provider Internal Medicine Pulmonary Disease
DX: J40 Bronchitis, not specified as acute or chronic (principal); Z72.0 Tobacco use
CPT/HCPCS: 94618

== ENCOUNTER 2022-02-02 00:03 | Day surgery (SDC) | payer MEDICARE, MEDICAID, SELFPAY ==
[2022-01-19 09:13] VITALS: BMI 41.4
[2022-02-02 08:43] VITALS: BP 126/75; PULSE 98; RESP 18; TEMP 36.3; O2SAT 93; BMI 40.6
--- NOTE | 2022-02-02 08:53 | WPDANESEPPF ---
Anes - Initial Pre Proc Eval Procedure: Operation Date: 02/02/22 09:45 Proposed Procedures p Screening Colonoscopy - Tulio Lawton MD Date/Time: 02/02/22 08:53 Surgeon: Tulio Lawton MD Pre Op Diagnosis: hx of colon polyps Patient Data Age: 61 Gender: M Height: 1.75 m Weight: 125 kg Last Vital Signs Temp 36.3 C L 02/02/22 08:43 Pulse 98 02/02/22 08:43 Resp 18 02/02/22 08:43 BP 126/75 02/02/22 08:43 Pulse Ox 93 02/02/22 08:43 O2 Del Method Room Air 02/02/22 08:43 Allergies Allergy/AdvReac Type Severity Reaction Status Date / Time morphine AdvReac Unknown Increased Verified 02/02/22 08:41 HR Home Medications Medication Instructions Recorded Confirmed Type bumetanide 1 mg tablet 2 mg PO ONCE 05/19/21 02/02/22 History ipratropium 0.5 mg-albuterol 3 mg 3 ml inhalation QID PRN shortness 05/28/21 02/02/22 Rx (2.5 mg base)/3 mL nebulization of breath or wheezing #90 mL soln metolazone 5 mg tablet See Rx Instructions .Route 06/03/21 02/02/22 Rx .COMPLEX #180 tabs methimazole 10 mg tablet 20 mg PO DAILY #180 tabs 07/02/21 02/02/22 Rx Stiolto Respimat 2.5 mcg-2.5 2 puff inhalation Q24H #4 grams 07/09/21 02/02/22 Rx mcg/actuation solution for inhalation (tiotropium-olodaterol) apixaban 5 mg tablet (Eliquis) 5 mg PO BID #180 tabs 07/11/21 02/02/22 Rx albuterol sulfate 90 mcg/actuation 2 inh inhalation Q4H PRN shortness 07/24/21 02/02/22 Rx aerosol inhaler of breath or wheezing #8.5 grams atorvastatin 20 mg tablet 20 mg PO HS #90 tabs 07/24/21 02/02/22 Rx metoprolol tartrate 100 mg tablet 100 mg PO BID #180 tabs 08/12/21 02/02/22 Rx diltiazem HCl 180 mg 180 mg PO QAM #90 caps 08/13/21 02/02/22 Rx capsule,extended release 24 hr, controlled potassium chloride 20 mEq 40 meq PO Q12H 30 days #360 tabs 09/18/21 02/02/22 Rx tablet,extended release(part/cryst) citalopram 20 mg tablet 20 mg PO DAILY #30 tabs 12/05/21 02/02/22 Rx trazodone 50 mg tablet 50 mg PO QHS PRN insomnia #30 tabs 01/13/22 02/02/22 Rx gabapentin 300 mg capsule 300 cap PO DAILY 01/19/22 02/02/22 History metformin 500 mg tablet 500 mg PO Q12H #180 tabs 01/26/22 02/02/22 Rx hydrocodone 7.5 mg-acetaminophen 1 tablet PO Q8H PRN pain #90 tabs 01/29/22 02/02/22 Rx 325 mg tablet Patient hx anesthesia problems: none Family hx anesthesia problems: none Results Review: All pre-operative results and documents have been reviewed as part of the pre-operative evaluation. [facility] Past Medical History Medical History Cerebrovascular accident (~05/2018) With global aphasia, much improved with mild expressive aphasia. Chronic anemia Chronic atrial fibrillation With failed cardiac ablation and cardioversion on several occasions. On long-term Coumadin for stroke prophylaxis. 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 Chronic respiratory failure with hypoxia, on home oxygen therapy 3 L nasal cannula with rest p.r.n. 4 L bleed in at nighttime. Congestive heart failure Echocardiogram on 03/27/2021 showed an enlarged left ventricular chamber with normal LV systolic function and an estimated EF of 55 to 60%, diastolic dysfunction, moderately enlarged right ventricular chamber, reduced RV systolic function, biatrial enlargement, mild regurgitation of annuloplasty ring of a prosthetic mitral valve, and mild pulmonary hypertension with an estimated pulmonary arterial systolic pressure of 44 mmHg. Coronary artery disease (~2001) Status post three-vessel bypass. Depression with anxiety Essential hypertension Hyperlipidemia Hyperthyroidism MRSA colonization Obstructive sleep apnea Approved for trilogy unit in February 2020. Osteoarthritis Type 2 diabetes mellitus Hemoglobin A1c was 6.4% on 03/26/2021. Valvular heart disease Status post mitral valve repair. Surgical History Surgical History (Reviewed 10/06/21 @ 1
[2022-02-02 08:55] LABS: Glucose Point of Care 160 mg/dl (65-105)
[2022-02-02] MEDS: LACTATED RINGERS 1,000 ML 150 ML IV CONT (08:55)
--- NOTE | 2022-02-02 10:20 | PM.HPGS ---
History of Present Illness History of Present Illness Consent: Risks, benefits, and alternatives have been discussed and questions answered. Patient agrees to proceed with procedure. Chief complaint: hx of colon polyps Narrative: John Peters is a 61 year old male with colon polyp 3 years ago. Review of Systems Constitutional: Constitutional: Denies headache(s) and Denies weakness Eyes: Eyes: Denies blurry vision ENT: Reports Normal hearing present, Denies headache(s) and Denies neck pain Cardiovascular: Cardiovascular: Denies chest pain and Denies dyspnea Respiratory: Respiratory: Denies dyspnea Gastrointestinal: Gastrointestinal: Reports no additional gastrointestinal complaints Genitourinary: Genitourinary: Denies dysuria Musculoskeletal: Musculoskeletal: Denies neck pain Integumentary/Breasts: Skin/Breast: Denies dry skin Neurologic: Reports Normal hearing present, Denies headache(s) and Denies weakness Psychiatric: Psychiatric: Denies anxiety Endocrine: Endocrine: Denies change in body appearance Hematologic/Lymphatic: Hematologic/Lymphatic: Denies easy bleeding Allergic/Immunologic: Allergic/Immunologic: Denies urticaria PMFSH Past Medical History Medical History Cerebrovascular accident (~05/2018) With global aphasia, much improved with mild expressive aphasia. Chronic anemia Chronic atrial fibrillation With failed cardiac ablation and cardioversion on several occasions. On long-term Coumadin for stroke prophylaxis. 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 Chronic respiratory failure with hypoxia, on home oxygen therapy 3 L nasal cannula with rest p.r.n. 4 L bleed in at nighttime. Congestive heart failure Echocardiogram on 03/27/2021 showed an enlarged left ventricular chamber with normal LV systolic function and an estimated EF of 55 to 60%, diastolic dysfunction, moderately enlarged right ventricular chamber, reduced RV systolic function, biatrial enlargement, mild regurgitation of annuloplasty ring of a prosthetic mitral valve, and mild pulmonary hypertension with an estimated pulmonary arterial systolic pressure of 44 mmHg. Coronary artery disease (~2001) Status post three-vessel bypass. Depression with anxiety Essential hypertension Hyperlipidemia Hyperthyroidism MRSA colonization Obstructive sleep apnea Approved for trilogy unit in February 2020. Osteoarthritis Type 2 diabetes mellitus Hemoglobin A1c was 6.4% on 03/26/2021. Valvular heart disease Status post mitral valve repair. Surgical History Surgical History History of coronary artery bypass graft x 3 History of mitral valve repair Family History Family History Father Family history of cardiovascular disease Family history of malignant neoplasm of bone Mother Family history of malignant neoplasm Sibling Family history of cardiovascular disease Social History Social History Social History: Surrogate decision maker: Alton Peters, brother. Code status: Full code. Smoking packs per day: 2 Smoking cigarettes per day: 40.0 Years smoked: 40 Smoking pack-years: 80.00 Smoking status: Former smoker Tobacco type: cigarettes Second hand tobacco smoke exposure: No Smoking end date: 07/12/17 Alcohol intake: former Drinks per week: 199 Alcohol use details: recovering alcoholic since 1996, rare occasional single beer Substance use: never Substance use type: does not use Living arrangements: alone Additional living arrangements comments: Patient lives in his own apartment in [place]. Additional occupation/education comments: On disability. 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 Gender identity (if verbalized by the patient): Male Spiritual
[2022-02-02 10:53] VITALS: BP 128/44; PULSE 99; RESP 18; O2SAT 97
[2022-02-02 11:03] VITALS: BP 119/86; PULSE 97; RESP 18; O2SAT 99
[2022-02-02 11:13] VITALS: BP 126/64; PULSE 94; RESP 20; O2SAT 99
== END 2022-02-02 11:22 | disposition home or self-care (01) ==
PROVIDERS: PCP Internal Medicine; Visit Provider Internal Medicine Gastroenterology
PROC: 0DJD8ZZ Inspection of Lower Intestinal Tract, Via Natural or Artificial Opening Endoscopic (ICD-10-PCS; CPT 45378; principal; 2022-02-02 09:45)
DX: Z12.11 Encounter for screening for malignant neoplasm of colon (principal); K64.8 Other hemorrhoids; D64.9 Anemia, unspecified; I11.0 Hypertensive heart disease with heart failure; I48.20 Chronic atrial fibrillation, unspecified; J96.11 Chronic respiratory failure with hypoxia; Z95.1 Presence of aortocoronary bypass graft; F41.8 Other specified anxiety disorders; E05.90 Thyrotoxicosis, unspecified without thyrotoxic crisis or storm; G47.33 Obstructive sleep apnea (adult) (pediatric); E11.9 Type 2 diabetes mellitus without complications; E78.5 Hyperlipidemia, unspecified; I50.9 Heart failure, unspecified; Z95.4 Presence of other heart-valve replacement; Z79.01 Long term (current) use of anticoagulants; Z87.891 Personal history of nicotine dependence; Z79.84 Long term (current) use of oral hypoglycemic drugs; Z79.51 Long term (current) use of inhaled steroids; E66.01 Morbid (severe) obesity due to excess calories; Z68.41 Body mass index [BMI] 40.0-44.9, adult
CPT/HCPCS: 45380; 82948; 88305; J2704; J7120

== ENCOUNTER 2022-04-16 09:22 | Outpatient (CLI) | payer MEDICARE, MEDICAID, SELFPAY ==
[2022-04-16 10:53] LABS: Cholesterol 261 mg/dL (0-200); HDL Direct 36 mg/dL; Triglycerides 212 mg/dL (<150)
[2022-04-16 11:05] LABS: LDL Cholesterol Direct 192 mg/dL
[2022-04-16 12:00] LABS: Prostate Specific Antigen 0.3 ng/mL (< OR = 4.0)
[2022-04-16 13:01] LABS: Hemoglobin A1C 9.9 % (<5.7)
== END 2022-04-16 09:23 | disposition home or self-care (01) ==
LOC: ANHLAB 09:25
PROVIDERS: PCP Internal Medicine; Visit Provider Internal Medicine
DX: E78.5 Hyperlipidemia, unspecified (principal); E05.90 Thyrotoxicosis, unspecified without thyrotoxic crisis or storm; Z12.5 Encounter for screening for malignant neoplasm of prostate; Z79.4 Long term (current) use of insulin; E11.69 Type 2 diabetes mellitus with other specified complication
CPT/HCPCS: 36415; 80061; 83036; 84153; 84443; G0103

== ENCOUNTER 2022-10-12 07:30 | Emergency (ER) | payer MEDICARE, MEDICAID, SELFPAY ==
[2022-10-12] VITALS (9 sets, daily range): BP systolic 98–116; BP diastolic 59–85; PULSE 97–150; RESP 16–22; TEMP 36.5; O2SAT 97–98
--- NOTE | ~2022-10-12 | XR_ITS ---
EXAMINATION: XR chest 1V portable INDICATION: Weakness TECHNIQUE: Portable AP chest at 0811 hours COMPARISON: 05/10/2021 FINDINGS: Cardiomegaly is noted. There is mild atelectasis of the lung bases. No pleural effusion or pneumothorax. Median sternotomy wires are consistent with prior cardiac surgery. IMPRESSION: 1. Cardiomegaly. 2. Mild bibasilar atelectasis. Reviewed, dictated and finalized at location B.
--- NOTE | ~2022-10-12 | CT_ITS ---
EXAMINATION: CT brain wo con INDICATION: Fall, weakness, transient alteration of awareness COMPARISON: 03/17/2020 TECHNIQUE: Standard unenhanced head CT. The dose-length product (DLP) was 681.00 mGy-cm. The mA was a djusted according to patient size. Iterative reconstruction technique was employed. FINDINGS: There is no acute intraparenchymal hemorrhage. No evidence of mass lesion. No evidence of a cute infarction. Again noted is an old left temporoparietal infarct. A stable arachnoid cyst is seen anterior to the left temporal lobe. There is mild periventricular and subcortical hypodensity probabl y related to small vessel ischemic disease. There is mild prominence of the sulci and ventricles rela kathia to cerebral atrophy. Intracranial calcified cerebral atherosclerosis is noted. There are no extra -axial collections. There is no mass effect or midline shift. The orbits and soft tissues are unremar kable. There is a polyp or mucous retention cyst in the left sphenoid sinus. IMPRESSION: 1. Old left temporal parietal infarct without acute intracranial abnormality. 2. Age related findings. Reviewed, dictated and finalized at location B.
--- NOTE | ~2022-10-12 | CT_ITS ---
EXAMINATION: CT cervical spine wo con DATE: 10/12/2022 08:27 INDICATION: Head injury TECHNIQUE: Computed tomography (CT) of the cervical spine was performed without intravenous contrast. The dose-length product (DLP) was 539.44 mGy-cm. Automated exposure control and iterative reconstruc tion technique were employed. COMPARISON: 09/21/2017 FINDINGS: Bone alignment is normal. There is no fracture. The odontoid process is intact. There is mu ltilevel moderate facet and uncovertebral joint osteoarthritis. The vertebral body heights are normal . There is mild loss of intervertebral disc space height throughout the cervical spine. IMPRESSION: 1. Mild cervical spondylosis without acute findings or significant interval change. Reviewed, dictated and finalized at location B. IMPRESSION: 1. Mild cervical spondylosis without acute findings or significant interval yumiko nge.
--- NOTE | 2022-10-12 07:54 | ECG_ITS ---
Measurements Intervals [place] Rate: 116 P: MD: 0 QRS: 89 QRSD: 108 T: 57 QT: 349 QTc: 485 Interpretive Statements ATRIAL FIBRILLATION WITH RAPID VENTRICULAR RESPONSE ABNORMAL RHYTHM ECG COMPARED TO ECG 05/12/2021 14:14:58 RAPID VENTRICULAR RESPONSE IS PRESENT NOW Electronically Signed On 10-12-2022 12:25:20 CDT by Sadi Carvajal M.D.
[2022-10-12 08:03] LABS: Basophils Absolute Auto 0.1 K/mm3 (0.0-0.1); Basophils Percent Auto 0.6 % (0.2-1.2); Eosinophils Absolute Auto 0.1 K/mm3 (0-0.3); Eosinophils Percent Auto 1.2 % (0-4.4); Hematocrit 40.8 % (42.0-52.0); Hemoglobin 13.7 g/dL (14.0-18.0); Immature Granulocyte Absolute 0.03 K/mm3 (0.00-0.031); Immature Granulocyte Percent A 0.3 % (0-0.5); Lymphocytes Absolute Auto 1.44 K/mm3 (0.9-3.2); Lymphocytes Percent Auto 15.5 % (18.3-44.2); Mean Corpuscular HGB Conc 33.6 g/dl (32-36); Mean Corpuscular Hemoglobin 29.8 pg (26-34); Mean Corpuscular Volume 88.9 fl (80-100); Mean Platelet Volume 8.9 fl (7.4-10.4); Monocytes Absolute Auto 0.9 K/mm3 (0.1-0.6); Monocytes Percent Auto 9.2 % (2.6-8.5); Neutrophils Absolute Auto 6.8 K/mm3 (1.3-6.7); Neutrophils Percent Auto 73.2 % (45.5-73.1); Platelet Count Result 228 k/mm3 (150-375); Red Blood Count 4.59 M/mm3 (4.6-6.20); Red Cell Distribution Width 15.4 % (11.5-14.5); White Blood Count 9.3 K/mm3 (4.5-10.0)
--- NOTE | 2022-10-12 08:07 | PC.NURSE ---
Pt unable to provide urine sample at this time, declined straight cath. Given urinal and call light.
[2022-10-12 08:15] LABS: Alanine Aminotransferase 27 U/L (6-50); Alkaline Phosphatase 111 U/L (38-126); Anion Gap 7 mmol/L (8-16); Aspartate Amino Transferase 23 U/L (17-59); Bilirubin,Total 0.6 mg/dL (0.2-1.3); Blood Urea Nitrogen 15 mg/dL (9-20); Calcium 8.5 mg/dL (8.4-10.2); Carbon Dioxide 33 mmol/L (22-30); Chloride 92 mmol/L (98-107); Estimated CRCL calculation 117 ml/min; Estimated Glomerular Filt Rate > 60; Glucose 189 mg/dL (65-110); Lipase 124 U/L (23-300); Magnesium 1.9 mg/dL (1.6-2.3); Potassium 2.9 mmol/L (3.4-5.0); Sodium 132 mmol/L (137-145)
[2022-10-12 08:19] LABS: Prothrombin Time 13.2 Seconds (11.1-14.7)
[2022-10-12 08:21] LABS: Partial Thromboplastin Time 25.9 SECONDS (22.3-36.8)
[2022-10-12 08:26] LABS: NT Pro B Type Natriuretic Pept 303 pg/mL (19.9-100); Troponin I < 0.012 ng/mL (0.000-0.034)
--- NOTE | 2022-10-12 08:27 | ED.GENADULT ---
HPI - General Adult General Chief complaint: Extremity Injury, Lower Stated complaint: bilateral feet pain since Wednesday Time Seen by Provider: 10/12/22 07:40 Source: patient, EMS, RN notes reviewed and old records reviewed Mode of arrival: EMS Limitations: other (hard of hearing) History of Present Illness HPI narrative: This is a 62 year old male with history of multiple medical problems including DM and afib who presents for evaluation of bilateral feet pain and possible syncope. Patient reports having bilateral feet pain that he describes as pins and needles for 1 year but it has gotten worse. He takes norco twice daily for chronic pain but he states this is for his back pain. He also thinks that he may have passed out yesterday. He reports feeling dizzy and waking up on the floor yesterday. He reports nausea, dry heaves and poor appetite. He reports chronic issues with chest pain and palpitations. He denies shortness of breath, diarrhea , abdominal pain. He has not taken any medication today. Related Data Allergies Allergy/AdvReac Type Severity Reaction Status Date / Time morphine AdvReac Unknown Increased Verified 10/12/22 07:41 HR Review of Systems Constitutional: Constitutional: Reports weakness Cardiovascular: Cardiovascular: Reports syncope, Denies rapid heart rate, Reports irregular heart rhythm (chronic afib), Denies leg edema and Denies dyspnea Respiratory: Respiratory: Denies chest congestion, Denies hemoptysis, Denies excessive phlegm production and Denies dyspnea Gastrointestinal: Gastrointestinal: Denies abdominal pain, Denies hematochezia, Denies diarrhea, Reports nausea and Denies vomiting Genitourinary: Genitourinary: Denies hematuria, Denies dysuria, Denies penile discharge and Denies testicular pain Musculoskeletal: Musculoskeletal: Reports back pain (chronic), Reports arthralgias, Denies joint swelling, Denies loss of height and Denies muscle weakness Neurologic: Denies syncope, Denies focal weakness and Denies weakness PMFSH Past Medical History Medical History (Updated 10/12/22 @ 12:07 by Stephy Horvath MD) Cerebrovascular accident (~05/2018) With global aphasia, much improved with mild expressive aphasia. Chronic anemia Chronic atrial fibrillation With failed cardiac ablation and cardioversion on several occasions. On long-term Coumadin for stroke prophylaxis. 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 Chronic respiratory failure with hypoxia, on home oxygen therapy 3 L nasal cannula with rest p.r.n. 4 L bleed in at nighttime. Congestive heart failure Echocardiogram on 03/27/2021 showed an enlarged left ventricular chamber with normal LV systolic function and an estimated EF of 55 to 60%, diastolic dysfunction, moderately enlarged right ventricular chamber, reduced RV systolic function, biatrial enlargement, mild regurgitation of annuloplasty ring of a prosthetic mitral valve, and mild pulmonary hypertension with an estimated pulmonary arterial systolic pressure of 44 mmHg. COPD (chronic obstructive pulmonary disease) Coronary artery disease (~2001) Status post three-vessel bypass. Depression with anxiety Essential hypertension Hyperlipidemia Hyperthyroidism MRSA colonization Obstructive sleep apnea Approved for trilogy unit in February 2020. Osteoarthritis Type 2 diabetes mellitus Hemoglobin A1c was 6.4% on 03/26/2021. Type 2 diabetes mellitus without complication, without long-term current use of insulin Valvular heart disease Status post mitral valve repair. Surgical History Surgical History History of coronary artery bypass graft x 3 History of mitral valve repair Family History Family History Father Family history of cardiovascular disease Family history of malignant neoplasm of bone Mother Family history of malignant neop
[2022-10-12 08:28] LABS: Lactic Acid Reflex 2.7 mmol/L (0.7-2.0)
[2022-10-12] MEDS: POTASSIUM CHLORIDE 20 MEQ TABLET 40 MEQ PO (08:34)
[2022-10-12 08:38] LABS: SARS-CoV-2 RNA PCR Negative
[2022-10-12] MEDS: SODIUM CHLORIDE 0.9% IV 1,000 ML 999 ML IV CONT (08:48)
[2022-10-12 10:01] LABS: Appearance Urine Clear (Clear); Bilirubin Urine Negative (Negative); Blood Urine Negative (Negative); Color Urine Yellow (Yellow); Glucose Urine UA 3+ mg/dL (Negative); Ketones Urine Negative (Negative); Leukocyte Esterase Ur Negative LEU/UL (Negative); Nitrate Urine Negative (Negative); Protein Urine Negative (Negative); Urobilinogen Urine 0.2 mg/dL (<2.0)
[2022-10-12 10:06] LABS: Add Urine Microscopic? NO
[2022-10-12] MEDS: METOPROLOL TARTRATE 50 MG TAB 100 MG PO (10:19)
[2022-10-12 11:13] LABS: Reflex Lactic Acid Yes or No Add Lactic
[2022-10-12 12:00] LABS: Lactic Acid 1.9 mmol/L (0.7-2.0)
== END 2022-10-12 12:32 | disposition home or self-care (01) ==
PROVIDERS: Emergency Provider General Practice; PCP Internal Medicine
DX: G62.9 Polyneuropathy, unspecified (principal); E87.6 Hypokalemia; I48.20 Chronic atrial fibrillation, unspecified; J44.9 Chronic obstructive pulmonary disease, unspecified; I25.10 Atherosclerotic heart disease of native coronary artery without angina pectoris; I11.0 Hypertensive heart disease with heart failure; I50.9 Heart failure, unspecified; E11.9 Type 2 diabetes mellitus without complications; E78.5 Hyperlipidemia, unspecified; Z86.73 Personal history of transient ischemic attack (TIA), and cerebral infarction without residual deficits; Z87.891 Personal history of nicotine dependence; Z20.822 Contact with and (suspected) exposure to COVID-19
CPT/HCPCS: 36415; 70450; 71045; 72125; 80053; 81003; 83605; 83690; 83735; 83880; 84484; 85025; 85610; 85730; 93005; 96360; 99284; A9270; J7030; U0003; U0005

== ENCOUNTER 2022-10-25 07:19 | Inpatient (IN) | payer MEDICARE, MEDICAID, SELFPAY ==
[2022-10-25] VITALS (31 sets, daily range): BP systolic 94–140; BP diastolic 50–104; PULSE 77–153; RESP 15–25; TEMP 36–36.7; O2SAT 91–99; BMI 40.3
--- NOTE | ~2022-10-25 | CT_ITS ---
EXAMINATION: CT foot LT wo con DATE: 10/29/2022 14:35 INDICATION: Left foot pain TECHNIQUE: High resolution computed tomography (CT) of the was performed without intravenous contrast . Additional sagittal and coronal reconstructions were performed. The dose-length product was 352.40 mGy-cm. COMPARISON: None FINDINGS: Bone alignment is normal. No acute fracture. Mild polyarticular most prominent at the first metatarso phalangeal joint and to lesser degree at the left ankle and multiple additional joints in the mid and forefoot. No erosions or periosteal reaction. Moderate-sized plantar calcaneal spur. Minimal entheso pathic consultation at the distal Achilles tendon. Small calcaneal bone island. There is moderate fat ty atrophy of the intrinsic musculature of the foot which could represent sequela of chronic diabetic neuropathy. Subcutaneous edema along the dorsum of the foot. IMPRESSION: 1. Mild degenerative skeletal changes. No acute osseous abnormality. 2. Moderate fatty atrophy of the intrinsic musculature of the foot which could represent sequela of c hronic diabetic neuropathy. Reviewed, dictated and finalized at location A. IMPRESSION: 1. Mild degenerative skeletal changes. No acute osseous abnormality. 2. Moderate fatty atrophy of the intrinsic musculature of the foot which could represent sequela of chronic diabetic neuropathy.
--- NOTE | ~2022-10-25 | XR_ITS ---
EXAMINATION: XR lumbar spine 2-3V DATE: 10/25/2022 10:50 INDICATION: Chronic low back pain TECHNIQUE: Anteroposterior and lateral views of the lumbar spine, and cone-down lateral view of the l umbosacral junction were obtained. COMPARISON: 03/26/2021 FINDINGS: There is chronic moderate loss of intervertebral disc space height at L5-S1. There is mild loss of intervertebral disc space height at L4-5. The vertebral body heights and alignment are normal . There is no fracture. There are moderate facet joint osteoarthritis of the lower lumbar spine. Calc ified atherosclerosis is noted. IMPRESSION: 1. Moderate lumbar spondylosis without acute findings or significant interval change. Reviewed, dictated and finalized at location A. IMPRESSION: 1. Moderate lumbar spondylosis without acute findings or significant interval yousuf hodge
--- NOTE | ~2022-10-25 | XR_ITS ---
EXAMINATION: XR chest 2V DATE: 10/25/2022 07:42 INDICATION: Weakness TECHNIQUE: AP and lateral views of the chest are obtained. COMPARISON: 10/12/2022 FINDINGS: There is mild atelectasis of the lung bases. Cardiomegaly is noted. No pleural effusion or pneumothorax. Median sternotomy wires and mediastinal surgical clips are seen, likely from prior andrews nary artery bypass grafting. IMPRESSION: 1. Mild atelectasis of the lung bases. 2. Cardiomegaly. Reviewed, dictated and finalized at location A.
--- NOTE | ~2022-10-25 | US_ITS ---
US arterial ankle brachial ind INDICATION: Foot pain. Decreased pulses per TECHNIQUE: Segmental pressures and plethysmographic and Doppler waveforms of the brachial and lower e xtremity arteries were obtained. COMPARISON: None. FINDINGS: Right and left brachial artery pressures of 100 mm Hg and 95 mm Hg, respectively, are concordant (nor mal difference <= 30 mmHg). The right ankle-brachial index (JARET) is 0.9 (normal >= 0.9-1.0). The right great toe-brachial index ( TBI) is 0.76 (normal >= 0.60). The left JARET is 1.28. The left TBI is 0.68. IMPRESSION: 1. Normal bilateral ankle and toe brachial indices. Reviewed, dictated and finalized at location A.
--- NOTE | ~2022-10-25 | XR_ITS ---
XR foot RT standing 2V 10/28/2022 15:50 Indication: Foot pain and swelling Procedure: 2 views of the right foot Comparison: 07/07/2021 Findings: There is polyarticular osteoarthritis. There is moderate diffuse soft tissue swelling of th e foot. Lisfranc joint is intact. No acute fractures identified. There is a degenerative calcaneal en thesophyte at the plantar surface. Impression: 1: No acute bone or joint abnormality. 2: Mild-moderate polyarticular osteoarthritis. 3: Moderate diffuse soft tissue swelling. Reviewed, dictated and finalized at location A. Impression: 1: No acute bone or joint abnormality. 2: Mild-moderate polyarticular osteoarthritis. 3: Moderate diffuse soft tissue swelling.
--- NOTE | ~2022-10-25 | CT_ITS ---
EXAMINATION: CT foot RT wo con DATE: 10/29/2022 14:35 INDICATION: Right foot pain and edema TECHNIQUE: High resolution computed tomography (CT) of the right foot was performed without intraveno us contrast. Additional sagittal and coronal reconstructions were performed. Automated exposure contr ol and iterative reconstruction technique were employed. The dose-length product was 353.56 mGy-cm. COMPARISON: Right foot radiographs dated 10/28/2022 FINDINGS: Bone alignment is normal. No acute fracture. Irregular contour along the dorsal aspect of the navicul a which could represent either degenerative enthesophyte or sequela of old talonavicular capsular avu lsion injury. Mild polyarticular most prominent at the first metatarsophalangeal joint and to lesser degree at the right ankle and multiple additional joints in the mid and forefoot. No erosions or rocael osteal reaction. Moderate-sized plantar calcaneal spur. There is moderate fatty atrophy of the intrin sic musculature of the foot which could represent sequela of chronic diabetic neuropathy. Subcutaneou s edema about the medial and lateral ankle and over the dorsum of the foot. IMPRESSION: 1. Mild degenerative skeletal changes. No acute abnormality. 2. Moderate fatty atrophy of the intrinsic musculature of the foot which could represent sequela of c hronic diabetic neuropathy. Reviewed, dictated and finalized at location A. IMPRESSION: 1. Mild degenerative skeletal changes. No acute abnormality. 2. Moderate fatty atrophy of the intrinsic musculature of the foot which could represent sequela of chronic diabetic neuropathy.
--- NOTE | ~2022-10-25 | XR_ITS ---
XR foot LT standing 2V 10/28/2022 15:50 Indication: Left foot pain and swelling Procedure: 2 views left foot Comparison: No prior studies for comparison. Findings: There is mild polyarticular osteoarthritis. Lisfranc joint intact. No acute fracture or tra umatic malalignment. There is a degenerative calcaneal enthesophyte at the plantar surface. There is moderate diffuse soft tissue swelling. Impression: 1: No acute bone or joint abnormality. 2: Mild polyarticular osteoarthritis. 2: Moderate diffuse soft tissue swelling. Reviewed, dictated and finalized at location A. Impression: 1: No acute bone or joint abnormality. 2: Mild polyarticular osteoarthritis. 2: Moderate diffuse soft tissue swelling.
--- NOTE | ~2022-10-25 | US_ITS ---
Ultrasound of the Abdominal Aorta INDICATION: Smoking history, abdominal aortic aneurysm TECHNIQUE: Grayscale, color Doppler, and pulsed Doppler images of the aorta and common iliac arteries were obtained. COMPARISON: None. FINDINGS: Exam is markedly limited related to body habitus, and poor visualization of the aorta. Proximal abdominal aorta measures 2.3 cm in maximum diameter. Mid and distal aorta are not well seen. No definite aneurysm visualized. IMPRESSION: No definite aneurysm seen, but exam is very limited related to patient body habitus. Mid-distal aorta are clearly visualized. Reviewed, dictated and finalized at location . IMPRESSION: No definite aneurysm seen, but exam is very limited related to patient body hab itus. Mid-distal aorta are clearly visualized.
--- NOTE | 2022-10-25 07:24 | ECG_ITS ---
Measurements Intervals Scalf Rate: 145 P: NV: 0 QRS: 92 QRSD: 93 T: 31 QT: 298 QTc: 464 Interpretive Statements ATRIAL FIBRILLATION WITH RAPID VENTRICULAR RESPONSE BORDERLINE RIGHT AXIS DEVIATION [QRS AXIS > 90] ABNORMAL RHYTHM ECG COMPARED TO ECG 10/12/2022 07:59:24 NO SIGNIFICANT CHANGES Electronically Signed On 10-25-2022 9:23:48 CDT by Genie Carson M.D.
[2022-10-25 07:39] LABS: Basophils Absolute Auto 0.1 K/mm3 (0.0-0.1); Basophils Percent Auto 0.6 % (0.2-1.2); Eosinophils Absolute Auto 0.2 K/mm3 (0-0.3); Eosinophils Percent Auto 1.3 % (0-4.4); Hematocrit 42.3 % (42.0-52.0); Hemoglobin 13.8 g/dL (14.0-18.0); Immature Granulocyte Absolute 0.04 K/mm3 (0.00-0.031); Immature Granulocyte Percent A 0.4 % (0-0.5); Lymphocytes Absolute Auto 1.37 K/mm3 (0.9-3.2); Lymphocytes Percent Auto 12.2 % (18.3-44.2); Mean Corpuscular HGB Conc 32.6 g/dl (32-36); Mean Corpuscular Hemoglobin 29.6 pg (26-34); Mean Corpuscular Volume 90.6 fl (80-100); Mean Platelet Volume 9.2 fl (7.4-10.4); Monocytes Absolute Auto 1.2 K/mm3 (0.1-0.6); Monocytes Percent Auto 10.4 % (2.6-8.5); Neutrophils Absolute Auto 8.4 K/mm3 (1.3-6.7); Neutrophils Percent Auto 75.1 % (45.5-73.1); Platelet Count Result 193 k/mm3 (150-375); Red Blood Count 4.67 M/mm3 (4.6-6.20); Red Cell Distribution Width 15.2 % (11.5-14.5); White Blood Count 11.2 K/mm3 (4.5-10.0)
[2022-10-25] MEDS: dilTIAZem HCl INJ 25 MG/5 ML VIAL 10 MG IV PUSH ×2 (07:51→08:51)
[2022-10-25 07:52] LABS: Alanine Aminotransferase 31 U/L (6-50); Alkaline Phosphatase 113 U/L (38-126); Anion Gap 6 mmol/L (8-16); Aspartate Amino Transferase 23 U/L (17-59); Bilirubin,Total 0.7 mg/dL (0.2-1.3); Blood Urea Nitrogen 15 mg/dL (9-20); Calcium 8.5 mg/dL (8.4-10.2); Carbon Dioxide 35 mmol/L (22-30); Chloride 94 mmol/L (98-107); Estimated CRCL calculation 116 ml/min; Estimated Glomerular Filt Rate > 60; Glucose 189 mg/dL (65-110); Potassium 3.4 mmol/L (3.4-5.0); Sodium 135 mmol/L (137-145)
[2022-10-25 07:54] LABS: INR 1.1; Prothrombin Time 13.8 Seconds (11.1-14.7)
[2022-10-25 07:55] LABS: Partial Thromboplastin Time 30.4 SECONDS (22.3-36.8)
[2022-10-25 08:04] LABS: NT Pro B Type Natriuretic Pept 914 pg/mL (19.9-100); Troponin I < 0.012 ng/mL (0.000-0.034)
[2022-10-25] MEDS: fentaNYL CITRATE INJ (*CRX) 100 MCG/2 ML VIAL 50 MCG IV PUSH (08:52)
--- NOTE | 2022-10-25 09:18 | ED.GENADULT ---
HPI - General Adult General Chief complaint: Headache Stated complaint: OTOOLE Time Seen by Provider: 10/25/22 07:20 History of Present Illness HPI narrative: Patient is a 62-year-old male who presents ER with reports of low back pain. Began earlier today. No radiation down legs. Worse with walking. Patient reports headache to EMS but not to this physician. Patient also found to be in A-fib with RVR upon arrival. He does report racing heart but no chest pain or pressure. He is not short of breath. He is without any distress in regards to this. In terms of back pain he had no trauma. There is no fevers or chills. He reports chronic pain. Related Data Home Medications Medication Instructions Recorded Confirmed gabapentin 300 mg capsule 300 mg TID 10/25/22 10/25/22 Allergies Allergy/AdvReac Type Severity Reaction Status Date / Time morphine AdvReac Unknown Increased Verified 10/25/22 07:25 HR Review of Systems Review of Systems: All systems reviewed & are unremarkable except as noted in HPI and below Constitutional: Constitutional: Denies chills, Denies fatigue and Denies fever(s) ENT: Denies nasal congestion and Denies sore throat Cardiovascular: Cardiovascular: Denies chest pain, Reports rapid heart rate and Denies radiating jaw, neck or arm pain Respiratory: Respiratory: Denies cough, Denies dyspnea and Denies wheezing Gastrointestinal: Gastrointestinal: Denies abdominal pain, Denies nausea and Denies vomiting Musculoskeletal: Musculoskeletal: Reports back pain, Denies arthralgias and Denies joint swelling Neurologic: Denies syncope, Denies focal weakness and Denies numbness PMFSH Past Medical History Medical History Cerebrovascular accident (~05/2018) With global aphasia, much improved with mild expressive aphasia. Chronic anemia Chronic atrial fibrillation With failed cardiac ablation and cardioversion on several occasions. On long-term Coumadin for stroke prophylaxis. Virtual Assistant is Dr. Vasquez at [facility]. Chronic respiratory failure with hypoxia, on home oxygen therapy 3 L nasal cannula with rest p.r.n. 4 L bleed in at nighttime. Congestive heart failure Echocardiogram on 03/27/2021 showed an enlarged left ventricular chamber with normal LV systolic function and an estimated EF of 55 to 60%, diastolic dysfunction, moderately enlarged right ventricular chamber, reduced RV systolic function, biatrial enlargement, mild regurgitation of annuloplasty ring of a prosthetic mitral valve, and mild pulmonary hypertension with an estimated pulmonary arterial systolic pressure of 44 mmHg. COPD (chronic obstructive pulmonary disease) Coronary artery disease (~2001) Status post three-vessel bypass. Depression with anxiety Essential hypertension Hyperlipidemia Hyperthyroidism MRSA colonization Obstructive sleep apnea Approved for trilogy unit in February 2020. Osteoarthritis Type 2 diabetes mellitus Hemoglobin A1c was 6.4% on 03/26/2021. Type 2 diabetes mellitus without complication, without long-term current use of insulin Valvular heart disease Status post mitral valve repair. 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 Surrogate decision maker: Alton Peters, brother. 3 daughters Code status: Full code. Smoking packs per day: 2 Smoking ci
[2022-10-25] MEDS: dilTIAZem 100 MG/100 ML 100 MG/100 ML BAG IV CONT (09:23)
[2022-10-25 11:22] LABS: Appearance Urine Clear (Clear); Bilirubin Urine Negative (Negative); Blood Urine Negative (Negative); Color Urine Yellow (Yellow); Glucose Urine UA 3+ mg/dL (Negative); Ketones Urine Negative (Negative); Leukocyte Esterase Ur Negative LEU/UL (Negative); Nitrate Urine Negative (Negative); Protein Urine Negative (Negative); Specific Grav Ur 1.033 (1.001-1.035); Urobilinogen Urine 0.2 mg/dL (<2.0)
[2022-10-25 11:24] LABS: Add Urine Microscopic? NO
[2022-10-25] MEDS: HYDROcodone/acetaminophen (*CRX) 5-325 MG TABLET 1 TAB PO (11:47)
--- NOTE | 2022-10-25 11:55 | PC.NURSE ---
Pt meal ordered at this time.
--- NOTE | 2022-10-25 12:53 | PM.IMHP ---
H&P: HPI History of Present Illness Date/Time: 10/25/22 12:53 Chief Complaint: Headache Narrative: This is a 62-year-old male patient who came in with a complaint of a headache. The patient has had a history of having a CVA in the past with some global amnesia which is now improved. He has a history of atrial fibrillation and diastolic dysfunction. He also has a history of COPD and is diabetic. The patient has no complaints of any slurred speech or focal weakness. The patient is on apixaban for his AFib. The patient stated that he has been taking his medications as scheduled. His white count 11.2. Neutrophil percentage 75.1. Sodium is slightly low at 135. The patient complains of chronic back pain and today a lumbar spine x-ray was performed and it was read as the following moderate lumbar spondylosis without acute findings or significant interval change. Chest x-ray was read as mild atelectasis at the lung bases and cardiomegaly. The patient denies any chest pain or shortness of breath at this time. The patient's EKG was read as atrial fibrillation with rapid ventricular response heart rate 145. When I asked him about his AFib RVR the patient stated he had noticed and that it was not bothering him. The patient denies any fever chills. No nausea vomiting or diarrhea. The patient was just complaining of lower back pain. He was given fentanyl. The patient was given IV diltiazem x2. Then he was started on a Cardizem drip. His heart rate dropped down into the 1 teens. The patient is being admitted to observation status on the date of service of 10/25/2022 Review of Systems Review of Systems: All systems reviewed & are unremarkable except as noted in HPI and below Constitutional: Constitutional: Reports as per HPI and Reports no additional constitutional complaints Eyes: Eyes: Reports as per HPI and Reports no additional eye complaints ENT: Reports system reviewed and no additional complaints, except as documented and Reports Normal hearing present Cardiovascular: Cardiovascular: Reports no additional cardiovascular complaints Respiratory: Respiratory: Reports no additional respiratory complaints and Reports no additional respiratory complaints Gastrointestinal: Gastrointestinal: Reports as per HPI and Reports no additional gastrointestinal complaints Musculoskeletal: Musculoskeletal: Reports no additional musculoskeletal complaints Integumentary/Breasts: Skin/Breast: Reports system reviewed and no additional complaints, except as docu and Reports as per HPI Neurologic: Reports system reviewed and no additional complaints, except as documented, Reports as per HPI and Reports Normal hearing present Psychiatric: Psychiatric: Reports no additional psychiatric complaints and Reports as per HPI Endocrine: Endocrine: Reports no additional endocrine complaints Hematologic/Lymphatic: Hematologic/Lymphatic: Reports no additional hematologic/lymphatic complaints Allergic/Immunologic: Allergic/Immunologic: Reports no additional allergic/immunologic complaints [facility] Past Medical History Medical History Cerebrovascular accident (~05/2018) With global aphasia, much improved with mild expressive aphasia. Chronic anemia Chronic atrial fibrillation With failed cardiac ablation and cardioversion on several occasions. On long-term Coumadin for stroke prophylaxis. Housesmith is Dr. Vasquez at [facility] Chronic respiratory failure with hypoxia, on home oxygen therapy 3 L nasal cannula with rest p.r.n. 4 L bleed in at nighttime. Congestive heart failure Echocardiogram on 03/27/2021 showed an enlarged left ventricular chamber with normal LV systolic function and an estimated EF of 55 to 60%, diastolic dysfunction, moderately enlarged right ventricular chamber, reduced RV systolic function, biatrial enlargement, mild regurgitation of annuloplasty ring of a prosthetic mi
--- NOTE | 2022-10-25 13:19 | ADMGEN ---
This patient, John Peters, was admitted to IMU Room 232-01. Patient/family oriented to hospital policies and general routines including ID bracelet, bed and alarms, visiting hours, pain management, procedures, bathroom and other care routines, personal items, smoking policy, room service/diet, and visiting hours. Information on how to activate the Rapid Response Team has been discussed. Patient/Family are encouraged to report perceived risks to care and to ask questions if they do not understand what they are told or what they should do.
[2022-10-25 16:14] LABS: Glucose Point of Care 210 mg/dl (65-105)
[2022-10-25] MEDS: HYDROcodone/acetaminophen (*CRX) 7.5-325 MG TABLET 1 TAB PO (17:14)
[2022-10-25] MEDS: APIXABAN 5 MG TABLET PO (17:15)
[2022-10-25] MEDS: BUMETANIDE 1 MG TABLET 2 MG BY MOUTH (17:16)
[2022-10-25] MEDS: PREGABALIN (*CRX) 50 MG CAPSULE PO (17:18)
[2022-10-25] MEDS: INSULIN ASPART (*BKC) 100 UNITS/ML SUB-Q (17:19)
[2022-10-25] MEDS: dilTIAZem HCL CD 180 MG CAP.ER.24H PO (17:33)
[2022-10-25] MEDS: POTASSIUM CHLORIDE 20 MEQ TABLET.ER 40 MEQ PO (17:33)
[2022-10-25 20:06] LABS: Glucose Point of Care 225 mg/dl (65-105)
[2022-10-25] MEDS: ACETAMINOPHEN 325 MG TABLET 650 MG PO (21:14)
[2022-10-25] MEDS: ATORVASTATIN 40 MG TABLET PO (22:18)
[2022-10-25] MEDS: traZODone HCL 50 MG TABLET PO (22:18)
[2022-10-26] VITALS (16 sets, daily range): BP systolic 100–137; BP diastolic 65–80; PULSE 99–143; RESP 20–24; TEMP 36.2–36.7; O2SAT 95–100
--- NOTE | 2022-10-26 | ECHO_ITS ---
Patient Info Name: John Peters Age: 62 years : 1960 Gender: Male Ht: 68 in Wt: 265 lbs BSA: 2.46 m2 HR: 108 bpm BP: 148 / 72 mmHg Heart Rhythm: Atrial Fibrillation Exam Date: 10/26/2022 2:11 PM Exam Location: [facility] Patient Status: Inpatient Admit Date: 10/26/2022 Staff Ordering Physician: Carmita Coronado NP Auto Apprentice Mechanic: Sundar Awan RDCS, RT Attending Provider: Sophie Jones MD Referring Physician: Ivonne COLON; Exam Type: CA echo doppler color flow Study Info Indications I50.9 - Heart failure, unspecified Complete two-dimensional, color flow and Doppler transthoracic echocardiogram is performed. Strain analysis performed. Summary 1. Complete two-dimensional, color flow and Doppler transthoracic echocardiogram is performed. 2. Technically difficult echocardiogram presumably because of patient obesity. 3. Mild LV enlargement with mild global systolic dysfunction estimated ejection fraction 40-45%. 4. Dilated right ventricle with RV systolic dysfunction. 5. Biatrial dilation left greater than right. 6. Mitral valve appears to have previous annuloplasty ring with mild residual MR. 7. Aortic valve sclerosis but without significant stenosis. 8. Atrial fibrillation. Left Ventricle Left ventricular chamber dimension is mildly enlarged. Left ventricular systolic function is mildly reduced, estimated at 40-45%. The left ventricular diastolic function is grade I diastolic dysfunction. Right Ventricle Right ventricular chamber dimension is moderately enlarged. Right ventricular systolic function is reduced. Left Atria Left atrial chamber dimension is severely enlarged. Right Atria Right atrial chamber dimension is moderately enlarged. Aortic Valve The aortic valve is trileaflet. There is mild aortic valve sclerosis. Pulmonic Valve The pulmonic valve is not well visualized. Mitral Valve The annuloplasty ring prosthetic mitral valve leaflefts are Empty. There is mild regurgitation of the annuloplasty ring prosthetic mitral valve. Tricuspid Valve The tricuspid valve leaflets are normal. There is mild tricuspid valve regurgitation. Pericardium/Pleural The pericardium appears normal. Aorta The aortic root size at the sinus of Valsalva is normal. Left Ventricular Outflow Tract Name Value Normal LVOT 2D LVOT Diameter 2.1 cm LVOT Doppler LVOT Peak Gradient 2 mmHg LVOT Mean Gradient 1 mmHg LVOT VTI 16 cm LVOT VTI/AV VTI Ratio 0.7 LVOT Stroke Volume 56 ml LVOT CO 3.6 l/min LVOT CI 1.4 l/min/m2 Mitral Valve Name Value Normal MV Doppler MV Peak Gradient 2 mmHg
[2022-10-26] MEDS: HYDROcodone/acetaminophen (*CRX) 7.5-325 MG TABLET 1 TAB PO ×3 (00:54→16:55)
[2022-10-26 04:52] LABS: Basophils Absolute Auto 0.1 K/mm3 (0.0-0.1); Basophils Percent Auto 0.6 % (0.2-1.2); Eosinophils Absolute Auto 0.3 K/mm3 (0-0.3); Hemoglobin 13.1 g/dL (14.0-18.0); Immature Granulocyte Absolute 0.02 K/mm3 (0.00-0.031); Immature Granulocyte Percent A 0.2 % (0-0.5); Lymphocytes Percent Auto 15.8 % (18.3-44.2); Mean Corpuscular Hemoglobin 29.2 pg (26-34); Mean Corpuscular Volume 91.3 fl (80-100); Mean Platelet Volume 9.1 fl (7.4-10.4); Monocytes Absolute Auto 0.8 K/mm3 (0.1-0.6); Monocytes Percent Auto 9.1 % (2.6-8.5); Neutrophils Absolute Auto 5.9 K/mm3 (1.3-6.7); Neutrophils Percent Auto 71.3 % (45.5-73.1); Platelet Count Result 170 k/mm3 (150-375); Red Blood Count 4.49 M/mm3 (4.6-6.20); Red Cell Distribution Width 15.2 % (11.5-14.5); White Blood Count 8.2 K/mm3 (4.5-10.0)
[2022-10-26 05:02] LABS: Alanine Aminotransferase 28 U/L (6-50); Albumin Level 3.8 g/dL (3.5-5.1); Alkaline Phosphatase 106 U/L (38-126); Anion Gap 6 mmol/L (8-16); Aspartate Amino Transferase 27 U/L (17-59); Bilirubin,Total 0.9 mg/dL (0.2-1.3); Blood Urea Nitrogen 18 mg/dL (9-20); Calcium 8.2 mg/dL (8.4-10.2); Carbon Dioxide 37 mmol/L (22-30); Chloride 95 mmol/L (98-107); Estimated CRCL calculation 104 ml/min; Estimated Glomerular Filt Rate > 60; Glucose 180 mg/dL (65-110); Magnesium 1.8 mg/dL (1.6-2.3); Potassium 3.4 mmol/L (3.4-5.0); Sodium 138 mmol/L (137-145)
[2022-10-26 05:15] LABS: Lactic Acid Reflex 1.4 mmol/L (0.7-2.0)
[2022-10-26 05:30] LABS: Hemoglobin A1C 7.9 % (<5.7)
[2022-10-26 07:52] LABS: Glucose Point of Care 193 mg/dl (65-105)
[2022-10-26] MEDS: PREGABALIN (*CRX) 50 MG CAPSULE PO ×3 (08:43→17:01)
[2022-10-26] MEDS: NICOTINE (*PBKC) 21 MG PATCH 1 PATCH TRANSDERM (08:44)
[2022-10-26] MEDS: dilTIAZem HCL CD 180 MG CAP.ER.24H PO (08:44)
[2022-10-26] MEDS: POTASSIUM CHLORIDE 20 MEQ TABLET.ER 40 MEQ PO ×2 (08:44→16:56)
[2022-10-26] MEDS: methiMAzole 10 MG TAB 20 MG PO (11:18)
[2022-10-26] MEDS: CITALOPRAM HYDROBROMIDE 20 MG TABLET PO (11:18)
[2022-10-26] MEDS: APIXABAN 5 MG TABLET PO ×2 (11:19→16:56)
[2022-10-26] MEDS: BUMETANIDE 1 MG TABLET 2 MG BY MOUTH ×2 (11:19→16:54)
[2022-10-26] MEDS: EMPAGLIFLOZIN 25 MG TABLET PO (11:19)
[2022-10-26 11:47] LABS: Glucose Point of Care 314 mg/dl (65-105)
[2022-10-26] MEDS: INSULIN ASPART (*BKC) 100 UNITS/ML SUB-Q (12:27)
--- NOTE | 2022-10-26 13:21 | PM.IMPN ---
Progress Note: A&P Assessment and Plan (1) Atrial fibrillation with RVR: Code(s): I48.91 - Unspecified atrial fibrillation Status: Acute Assessment and Plan: The patient was given IV Cardizem and was started on a Cardizem drip. He was resumed on his p.o. Cardizem but rate still not at goal. BP soft so will add metoprolol. Continue apixaban. Monitor on tele. Adjust medications as needed (2) Congestive heart failure: Qualifiers: Heart failure chronicity: chronic Heart failure type: diastolic Qualified Code(s): I50.32 - Chronic diastolic (congestive) heart failure Code(s): I50.9 - Heart failure, unspecified Status: Acute Assessment and Plan: Appears euvolemic. CXR showing CMG and atelectasis. BNP 914. Echo ordered. Continue Bumex. Continue with Jardiance (3) Type 2 diabetes mellitus: Qualifiers: Diabetes mellitus complication status: with other specified complication Diabetes mellitus termite renewal inspector insulin use: with prison use Qualified Code(s): E11.69 - Type 2 diabetes mellitus with other specified complication; Z79.4 - terminal operations supervisor (current) use of insulin Code(s): E11.9 - Type 2 diabetes mellitus without complications Status: Acute Assessment and Plan: A1c 7.9. The patient's blood glucose was reviewed on 10/26 Glucose up and down. Continue AccuCheks covering with sliding scale. Hypoglycemia protocol available as needed. Continue current medications. (4) Essential hypertension: Code(s): I10 - Essential (primary) hypertension Status: Acute Assessment and Plan: Patient's blood pressure was reviewed on 10/26 Blood pressure remains well controlled. Will continue current medications. (5) Hyperthyroidism: Code(s): E05.90 - Thyrotoxicosis, unspecified without thyrotoxic crisis or storm Status: Acute Assessment and Plan: TSH normal. Continue with Tapazole (6) COPD (chronic obstructive pulmonary disease): Code(s): J44.9 - Chronic obstructive pulmonary disease, unspecified Status: Acute Assessment and Plan: No wheezing. Xopenex available prn (7) Obstructive sleep apnea: Code(s): G47.33 - Obstructive sleep apnea (adult) (pediatric) Status: Acute Assessment and Plan: According to the records the patient was approved for a trilogy. Continue BiPAP here (8) Chronic, continuous use of opioids: Code(s): F11.90 - Opioid use, unspecified, uncomplicated Status: Acute Assessment and Plan: The patient has peripheral neuropathy and is being followed by a doctor for this. Continue with Lyrica and [place]. He no longer takes Gabapentin. Subjective Date/time seen: 10/26/22 13:21 Interval history: 62yo male with hx of CHF, DM and AFib here for headache and found to have AFib/RVR He complains of feet pain that he has been told related to his back. Has pins and needles. no CP but feels slightly SOB. Feet pain better today. Exam Narrative: AF 98.0 109/71 120 24 95% ra Gen - NARD Chest - CTA bilaterally, nml RR CV - irregularly irregular and tachcycardic, Tele showing AFib with RVR Abd - Soft, obese, +BS Ext - Non-pitting pedal edema. No open areas on his feet Psych - Nml mood and affect Skin - Warm and dry Objective Data Vital Signs Vital Signs: Vital Signs - 24 hr 10/25/22 13:31 10/25/22 15:23 10/25/22 17:01 Temperature 96.8 F L 97.3 F L Pulse Rate 129 H 77 Respiratory Rate 22 H 22 H Blood Pressure 109/71 96/50 L 112/73 Pulse Oximetry 92 94 Oxygen Delivery 10/25/22 14:00 10/25/22 16:00 10/25/22 18:00 Temperature Pulse Rate 125 H 104 H 118 H Respiratory Rate Blood Pressure Pulse Oximetry Oxygen Delivery 10/25/22 16:00 10/25/22 20:00 10/25/22 20:00 Temperature 98.1 F Pulse Rate 114 H 115 H Respiratory Rate 22 H Blood Pressure 112/57 L Pulse Oximetry 99 Oxygen Delivery Room
[2022-10-26] MEDS: METOPROLOL TARTRATE 12.5 MG TABLET PO (15:24)
[2022-10-26 17:10] LABS: Glucose Point of Care 175 mg/dl (65-105)
[2022-10-26 19:57] LABS: Glucose Point of Care 211 mg/dl (65-105)
[2022-10-26] MEDS: ATORVASTATIN 40 MG TABLET PO (20:35)
[2022-10-26] MEDS: METOPROLOL TARTRATE 25 MG TABLET PO (20:35)
[2022-10-26] MEDS: traZODone HCL 50 MG TABLET PO (20:47)
[2022-10-27] VITALS (17 sets, daily range): BP systolic 95–106; BP diastolic 54–77; PULSE 63–126; RESP 14–22; TEMP 36.5–36.7; O2SAT 90–100
[2022-10-27] MEDS: HYDROcodone/acetaminophen (*CRX) 7.5-325 MG TABLET 1 TAB PO ×3 (01:08→17:05)
[2022-10-27 04:58] LABS: Anion Gap 2 mmol/L (8-16); Blood Urea Nitrogen 17 mg/dL (9-20); Calcium 8.2 mg/dL (8.4-10.2); Carbon Dioxide 37 mmol/L (22-30); Chloride 94 mmol/L (98-107); Estimated CRCL calculation 104 ml/min; Estimated Glomerular Filt Rate > 60; Glucose 162 mg/dL (65-110); Potassium 3.6 mmol/L (3.4-5.0); Sodium 133 mmol/L (137-145)
[2022-10-27 08:22] LABS: Glucose Point of Care 169 mg/dl (65-105)
[2022-10-27] MEDS: PREGABALIN (*CRX) 50 MG CAPSULE PO ×3 (08:47→17:30)
[2022-10-27] MEDS: METOPROLOL TARTRATE 25 MG TABLET PO ×3 (08:47→21:24)
[2022-10-27] MEDS: dilTIAZem HCL CD 180 MG CAP.ER.24H PO (08:47)
[2022-10-27] MEDS: POTASSIUM CHLORIDE 20 MEQ TABLET.ER 40 MEQ PO ×2 (08:47→17:03)
[2022-10-27] MEDS: CITALOPRAM HYDROBROMIDE 20 MG TABLET PO (08:47)
[2022-10-27] MEDS: APIXABAN 5 MG TABLET PO ×2 (08:47→17:02)
[2022-10-27] MEDS: BUMETANIDE 1 MG TABLET 2 MG BY MOUTH ×2 (08:47→17:02)
[2022-10-27] MEDS: EMPAGLIFLOZIN 25 MG TABLET PO (08:48)
[2022-10-27] MEDS: NICOTINE (*PBKC) 21 MG PATCH 1 PATCH TRANSDERM (08:48)
[2022-10-27] MEDS: methiMAzole 10 MG TAB 20 MG PO (08:48)
--- NOTE | 2022-10-27 10:05 | PM.IMPN ---
Progress Note: A&P Assessment and Plan (1) Atrial fibrillation with RVR: Code(s): I48.91 - Unspecified atrial fibrillation Status: Acute Assessment and Plan: The patient was given IV Cardizem and was started on a Cardizem drip. He was resumed on his p.o. Cardizem but rate was still not at goal so Metoprolol added. BP soft. Echo showing EF 40-45% with Grade I diastolic dysfunction, dilated RV and dysfunction, MV repair and biatrial enlargement. Continue apixaban. Monitor on tele. HR poorly controlled at to 120-130 with minor activity. Could be contributing to his decreasing EF. Will stop Diltiazem (should still have the HR control for the next 24 hrs). Consult Cardiology. Advance metoprolol today and again tomorrow once Diltiazem has washed out. (2) Congestive heart failure: Qualifiers: Heart failure chronicity: chronic Heart failure type: diastolic Qualified Code(s): I50.32 - Chronic diastolic (congestive) heart failure Code(s): I50.9 - Heart failure, unspecified Status: Acute Assessment and Plan: Appears euvolemic. CXR showing CMG and atelectasis. BNP 914. Echo in 03/2021 with EF 55-60% and Echo in 05/2022 with EF 51%. Echo this admission 40-45% otherwise as above. BP soft. Remains on Bumex but contributes to his soft BP. Continue with Jardiance. Plan to change to Toprol XL once his HR better controlled. No KIKE/ARB given soft BP. (3) Type 2 diabetes mellitus: Qualifiers: Diabetes mellitus complication status: with other specified complication Diabetes mellitus usp insulin use: with usp use Qualified Code(s): E11.69 - Type 2 diabetes mellitus with other specified complication; Z79.4 - [facility]FP (current) use of insulin Code(s): E11.9 - Type 2 diabetes mellitus without complications Status: Acute Assessment and Plan: A1c 7.9. The patient's blood glucose was reviewed on 10/27 Glucose better controlled this morning at 162. Continue AccuCheks covering with sliding scale. Hypoglycemia protocol available as needed. Continue current medications. (4) Essential hypertension: Code(s): I10 - Essential (primary) hypertension Status: Acute Assessment and Plan: Patient's blood pressure was reviewed on 10/27 Blood pressure soft at times Will continue current medications. (5) Hyperthyroidism: Code(s): E05.90 - Thyrotoxicosis, unspecified without thyrotoxic crisis or storm Status: Acute Assessment and Plan: TSH normal. Continue with Tapazole (6) COPD (chronic obstructive pulmonary disease): Code(s): J44.9 - Chronic obstructive pulmonary disease, unspecified Status: Acute Assessment and Plan: No wheezing. Xopenex available prn (7) Obstructive sleep apnea: Code(s): G47.33 - Obstructive sleep apnea (adult) (pediatric) Status: Acute Assessment and Plan: According to the records the patient was approved for a trilogy. Continue BiPAP here (8) Chronic, continuous use of opioids: Code(s): F11.90 - Opioid use, unspecified, uncomplicated Status: Acute Assessment and Plan: The patient has peripheral neuropathy and is being followed by a doctor for this. Continue with Lyrica and [place]. He no longer takes Gabapentin. Subjective Date/time seen: 10/27/22 10:05 Interval history: 62yo male with hx of CHF, DM and AFib here for headache and found to have AFib/RVR Feeling better. No CP. Slept well. Eating okay. Exam Narrative: AF 97.7 95/70 112 16 90% ra Gen - NARD sitting at the side of the bed Chest - CTA bilaterally, nml RR CV - irregularly irregular and tachycardic. HR 120-130 when patient was ambulating in the room. Tele showing AFib with RVR with rate average around 100 Abd - Soft, obese, +BS Ext - Non-pitting pedal edema Psych - Nml mood and affect Skin - Warm and dry Objective Data Vital Signs Vital Signs: Vital Sign
[2022-10-27 12:11] LABS: Glucose Point of Care 212 mg/dl (65-105)
[2022-10-27 12:14] LABS: Troponin I < 0.012 ng/mL (0.000-0.034)
[2022-10-27] MEDS: INSULIN ASPART (*BKC) 100 UNITS/ML SUB-Q (12:15)
[2022-10-27 17:14] LABS: Glucose Point of Care 263 mg/dl (65-105)
[2022-10-27 19:34] LABS: Glucose Point of Care 212 mg/dl (65-105)
[2022-10-27] MEDS: ATORVASTATIN 40 MG TABLET PO (21:24)
[2022-10-27] MEDS: traZODone HCL 50 MG TABLET PO (22:09)
[2022-10-28] VITALS (15 sets, daily range): BP systolic 95–106; BP diastolic 54–75; PULSE 88–129; RESP 20–22; TEMP 36.2–36.8; O2SAT 93–100
[2022-10-28] MEDS: HYDROcodone/acetaminophen (*CRX) 7.5-325 MG TABLET 1 TAB PO ×4 (01:09→20:55)
[2022-10-28 05:02] LABS: Albumin Level 3.8 g/dL (3.5-5.1); Anion Gap 5 mmol/L (8-16); Blood Urea Nitrogen 24 mg/dL (9-20); Carbon Dioxide 35 mmol/L (22-30); Chloride 93 mmol/L (98-107); Estimated CRCL calculation 104 ml/min; Estimated Glomerular Filt Rate > 60; Glucose 167 mg/dL (65-110); Phosphorus 3.7 mg/dL (2.5-4.5); Potassium 3.7 mmol/L (3.4-5.0); Sodium 133 mmol/L (137-145)
[2022-10-28] MEDS: METOPROLOL TARTRATE 25 MG TABLET PO (06:23)
[2022-10-28 07:43] LABS: Glucose Point of Care 196 mg/dl (65-105)
[2022-10-28] MEDS: BUMETANIDE 1 MG TABLET 2 MG BY MOUTH ×2 (08:34→17:26)
[2022-10-28] MEDS: CITALOPRAM HYDROBROMIDE 20 MG TABLET PO (08:34)
[2022-10-28] MEDS: POTASSIUM CHLORIDE 20 MEQ TABLET.ER 40 MEQ PO ×2 (08:34→17:25)
[2022-10-28] MEDS: APIXABAN 5 MG TABLET PO ×2 (08:34→17:26)
[2022-10-28] MEDS: EMPAGLIFLOZIN 25 MG TABLET PO (08:34)
[2022-10-28] MEDS: methiMAzole 10 MG TAB 20 MG PO (08:35)
[2022-10-28] MEDS: PREGABALIN (*CRX) 50 MG CAPSULE PO (08:35)
[2022-10-28] MEDS: NICOTINE (*PBKC) 21 MG PATCH 1 PATCH TRANSDERM (08:35)
[2022-10-28 12:10] LABS: Glucose Point of Care 201 mg/dl (65-105)
--- NOTE | 2022-10-28 13:20 | PM.CNCAR ---
Assessment and Plan Assessment and plan (1) Atrial fibrillation with RVR: Code(s): I48.91 - Unspecified atrial fibrillation Status: Acute Plan Currently, patient is overall rate controlled. Diltiazem has been discontinued due to mildly reduced LVEF. On Metoprolol 25mg Q8H, will switch to 100mg BID, which is what patient was taking at home. Continue with Eliquis. We will arrange for outpatient follow-up visit with Dr. Spence. History of Present Illness History of Present Illness Consult date/time: 10/28/22 13:20 Requesting physician: Mor Mccloud MD Consult reason: atrial fibrillation Reason For Visit: Afib RVR,Low back pain Narrative: We are consulted for atrial fibrillation with RVR. Patient follows with Dr. Spence in our office. Last seen in 03/2022. He has a history of CVA, hearing loss, permanent atrial fibrillation, history of AFIB ablation, history of CABG and mitral valve repair, COPD on home oxygen, hypertension, diabetes, hyperthyroidism. Patient had initially presented to the ER with low back pain and headache. Found to be in atrial fibrillation with RVR on arrival to the ED. He was started on IV Diltiazem drip which was then switched over to PO and his home Metoprolol restarted. Echocardiogram th admission shows LVEF 40-45%, dilated RV with RV systolic dysfunction, biatrial dilation. Review of Systems Review of Systems: All systems reviewed & are unremarkable except as noted in HPI and below (HPI) [facility] Past Medical History Medical History Cerebrovascular accident (~05/2018) With global aphasia, much improved with mild expressive aphasia. Chronic anemia Chronic atrial fibrillation With failed cardiac ablation and cardioversion on several occasions. On long-term Coumadin for stroke prophylaxis. 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 Chronic respiratory failure with hypoxia, on home oxygen therapy 3 L nasal cannula with rest p.r.n. 4 L bleed in at nighttime. Congestive heart failure Echocardiogram on 03/27/2021 showed an enlarged left ventricular chamber with normal LV systolic function and an estimated EF of 55 to 60%, diastolic dysfunction, moderately enlarged right ventricular chamber, reduced RV systolic function, biatrial enlargement, mild regurgitation of annuloplasty ring of a prosthetic mitral valve, and mild pulmonary hypertension with an estimated pulmonary arterial systolic pressure of 44 mmHg. COPD (chronic obstructive pulmonary disease) Coronary artery disease (~2001) Status post three-vessel bypass. Depression with anxiety Essential hypertension Hyperlipidemia Hyperthyroidism MRSA colonization Obstructive sleep apnea Approved for trilogy unit in February 2020. Osteoarthritis Type 2 diabetes mellitus Hemoglobin A1c was 6.4% on 03/26/2021. Type 2 diabetes mellitus without complication, without long-term current use of insulin Valvular heart disease Status post mitral valve repair. 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 Surrogate decision maker: Alton Peters, brother. 3 daughters Code status: Full code. Smoking packs per day: 2 Smoking cigarettes per day: 40.0 Years smoked: 40 Smoking pack-years: 80.00 Smoking status: Former smoker Tobacco type: cigarettes Second hand tobacco smoke exposure: No Smoking end
--- NOTE | 2022-10-28 14:33 | PM.IMPN ---
Progress Note: A&P Assessment and Plan (1) Atrial fibrillation with RVR: Code(s): I48.91 - Unspecified atrial fibrillation Status: Acute Assessment and Plan: The patient was given IV Cardizem and was started on a Cardizem drip. He was resumed on his p.o. Cardizem but rate was still not at goal so Metoprolol added. BP soft. Echo showing EF 40-45% with Grade I diastolic dysfunction, dilated RV and dysfunction, MV repair and biatrial enlargement. Continue apixaban. Monitor on tele. Appreciate cardiology consult, metoprolol increased to 100 mg BID (2) Congestive heart failure: Qualifiers: Heart failure chronicity: chronic Heart failure type: diastolic Qualified Code(s): I50.32 - Chronic diastolic (congestive) heart failure Code(s): I50.9 - Heart failure, unspecified Status: Acute Assessment and Plan: Appears euvolemic. CXR showing CMG and atelectasis. BNP 914. Echo in 03/2021 with EF 55-60% and Echo in 05/2022 with EF 51%. Echo this admission 40-45% otherwise as above. BP soft. Remains on Bumex but contributes to his soft BP. Continue with Jardiance. No KIKE/ARB given soft BP. 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 The patient's blood glucose was reviewed on 10/28 Glucose better controlled this morning at 162. Continue AccuCheks covering with sliding scale. Hypoglycemia protocol available as needed. Continue current medications. (4) Essential hypertension: Code(s): I10 - Essential (primary) hypertension Status: Acute Assessment and Plan: Patient's blood pressure was reviewed on 10/28 Blood pressure soft at times Will continue current medications. (5) Hyperthyroidism: Code(s): E05.90 - Thyrotoxicosis, unspecified without thyrotoxic crisis or storm Status: Acute Assessment and Plan: TSH normal. Continue with Tapazole (6) COPD (chronic obstructive pulmonary disease): Code(s): J44.9 - Chronic obstructive pulmonary disease, unspecified Status: Acute Assessment and Plan: No wheezing. Xopenex available prn (7) Obstructive sleep apnea: Code(s): G47.33 - Obstructive sleep apnea (adult) (pediatric) Status: Acute Assessment and Plan: According to the records the patient was approved for a trilogy. Continue BiPAP here (8) Chronic, continuous use of opioids: Code(s): F11.90 - Opioid use, unspecified, uncomplicated Status: Acute Assessment and Plan: The patient has peripheral neuropathy and is being followed by a doctor for this. Continue with Lyrica and [place]. He no longer takes Gabapentin. 10/28: d/c lyrica and celexa, trial cymbalta, check B12, folate, check standing foot xrays Plan DVT prophylaxis with SCDs GI prophylaxis not indicated Code status full code Subjective Date/time seen: 10/28/22 14:33 Interval history: 62yo male with hx of CHF, DM and AFib here for headache and found to have AFib/RVR No overnight events noted. No chest pain or shortness of breath. No nausea, vomiting or diarrhea. No fevers or chills. HR improved. Still c/o B/L foot pain, severe. He has also noted intermittent headaches, resolved at this point. He is requesting a AAA US to rule out aneurysm. He would also like the blood flow to his feet to be evaluated due to the severe, stabbing pain that is unresolved with gabapentin, lyrica. [place] only helps a little. Review of Systems Review of Systems: 12 point review of systems was assessed and was negative ex
[2022-10-28] MEDS: HYDROmorphone HCL INJ (*CRX) 1 MG/ML SYR 0.5 MG IV PUSH (16:06)
[2022-10-28 16:18] LABS: Folic Acid 13.1 ng/mL (2.76->20)
[2022-10-28 16:33] LABS: Glucose Point of Care 207 mg/dl (65-105)
[2022-10-28] MEDS: INSULIN ASPART (*BKC) 100 UNITS/ML SUB-Q (17:25)
[2022-10-28 20:15] LABS: Glucose Point of Care 167 mg/dl (65-105)
[2022-10-28] MEDS: traZODone HCL 50 MG TABLET PO (20:54)
[2022-10-28] MEDS: ATORVASTATIN 40 MG TABLET PO (20:55)
[2022-10-28] MEDS: METOPROLOL TARTRATE 50 MG TAB 100 MG PO (20:55)
[2022-10-29] VITALS (7 sets, daily range): BP systolic 97–115; BP diastolic 60–70; PULSE 81–123; RESP 16–20; TEMP 36.2–37.2; O2SAT 92–94
[2022-10-29] MEDS: HYDROcodone/acetaminophen (*CRX) 7.5-325 MG TABLET 1 TAB PO ×4 (01:30→16:32)
--- NOTE | 2022-10-29 01:52 | PC.NURSE ---
This patient, John Peters, was transferred to [[id number] ] on 10/29/22 at 0152. Personal belongings sent with patient. Report given to [ rn]. Appropriate documentation sent with patient.
[2022-10-29 08:19] LABS: Glucose Point of Care 171 mg/dl (65-105)
[2022-10-29 11:22] LABS: Basophils Absolute Auto 0.1 K/mm3 (0.0-0.1); Basophils Percent Auto 0.7 % (0.2-1.2); Eosinophils Absolute Auto 0.4 K/mm3 (0-0.3); Eosinophils Percent Auto 5.3 % (0-4.4); Hematocrit 40.5 % (42.0-52.0); Hemoglobin 12.9 g/dL (14.0-18.0); Immature Granulocyte Absolute 0.03 K/mm3 (0.00-0.031); Immature Granulocyte Percent A 0.4 % (0-0.5); Lymphocytes Absolute Auto 1.08 K/mm3 (0.9-3.2); Lymphocytes Percent Auto 15.9 % (18.3-44.2); Mean Corpuscular HGB Conc 31.9 g/dl (32-36); Mean Corpuscular Volume 94.2 fl (80-100); Mean Platelet Volume 9.2 fl (7.4-10.4); Monocytes Absolute Auto 0.6 K/mm3 (0.1-0.6); Monocytes Percent Auto 8.1 % (2.6-8.5); Neutrophils Absolute Auto 4.7 K/mm3 (1.3-6.7); Neutrophils Percent Auto 69.6 % (45.5-73.1); Platelet Count Result 199 k/mm3 (150-375); Red Cell Distribution Width 15.1 % (11.5-14.5); White Blood Count 6.8 K/mm3 (4.5-10.0)
[2022-10-29 11:42] LABS: Alanine Aminotransferase 38 U/L (6-50); Albumin Level 3.7 g/dL (3.5-5.1); Alkaline Phosphatase 112 U/L (38-126); Anion Gap 3 mmol/L (8-16); Aspartate Amino Transferase 27 U/L (17-59); Bilirubin,Total 0.6 mg/dL (0.2-1.3); Blood Urea Nitrogen 22 mg/dL (9-20); Calcium 8.2 mg/dL (8.4-10.2); Carbon Dioxide 39 mmol/L (22-30); Chloride 93 mmol/L (98-107); Estimated CRCL calculation 104 ml/min; Estimated Glomerular Filt Rate > 60; Glucose 150 mg/dL (65-110); Potassium 4.1 mmol/L (3.4-5.0); Sodium 135 mmol/L (137-145)
[2022-10-29] MEDS: DULoxetine HCL 30 MG CAPSULE.DR PO (11:50)
[2022-10-29] MEDS: BUMETANIDE 1 MG TABLET 2 MG BY MOUTH ×2 (11:50→16:32)
[2022-10-29] MEDS: APIXABAN 5 MG TABLET PO ×2 (11:50→16:33)
[2022-10-29] MEDS: EMPAGLIFLOZIN 25 MG TABLET PO (11:50)
[2022-10-29] MEDS: methiMAzole 10 MG TAB 20 MG PO (11:50)
[2022-10-29] MEDS: POTASSIUM CHLORIDE 20 MEQ TABLET.ER 40 MEQ PO ×2 (11:50→16:32)
[2022-10-29] MEDS: METOPROLOL TARTRATE 50 MG TAB 100 MG PO (11:53)
[2022-10-29] MEDS: CYANOCOBALAMIN INJ 1,000 MCG/ML VIAL 1000 MCG IM (11:55)
[2022-10-29 11:58] LABS: Glucose Point of Care 168 mg/dl (65-105)
[2022-10-29] MEDS: ACETAMINOPHEN 500 MG TABLET 1000 MG PO (13:30)
[2022-10-29] MEDS: NICOTINE (*PBKC) 21 MG PATCH 1 PATCH TRANSDERM (13:31)
--- NOTE | 2022-10-29 17:12 | PM.DS ---
DS: Admitting Diagnosis Discharge Date 10/29/22 Admitting Diagnosis sob DS: Discharge Diagnosis Discharge Diagnosis (1) Atrial fibrillation with RVR: Code(s): I48.91 - Unspecified atrial fibrillation Status: Acute Assessment and Plan: The patient was given IV Cardizem and was started on a Cardizem drip. He was resumed on his p.o. Cardizem but rate was still not at goal so Metoprolol added. BP soft. Echo showing EF 40-45% with Grade I diastolic dysfunction, dilated RV and dysfunction, MV repair and biatrial enlargement. Continue apixaban. Monitor on tele. Appreciate cardiology consult, metoprolol increased to 100 mg BID (2) Congestive heart failure: Qualifiers: Heart failure chronicity: chronic Heart failure type: diastolic Qualified Code(s): I50.32 - Chronic diastolic (congestive) heart failure Code(s): I50.9 - Heart failure, unspecified Status: Acute Assessment and Plan: Appears euvolemic. CXR showing CMG and atelectasis. BNP 914. Echo in 03/2021 with EF 55-60% and Echo in 05/2022 with EF 51%. Echo this admission 40-45% otherwise as above. BP soft. Remains on Bumex but contributes to his soft BP. Continue with Jardiance. No KIKE/ARB given soft BP. (3) Type 2 diabetes mellitus: Qualifiers: Diabetes mellitus complication status: with other specified complication Diabetes mellitus intermodal dispatcher insulin use: with intermodal dispatcher use Qualified Code(s): E11.69 - Type 2 diabetes mellitus with other specified complication; Z79.4 - MCFP (current) use of insulin Code(s): E11.9 - Type 2 diabetes mellitus without complications Status: Acute Assessment and Plan: A1c 7.9. The patient's blood glucose was reviewed on 10/28 Glucose better controlled this morning at 162. Continue AccuCheks covering with sliding scale. Hypoglycemia protocol available as needed. Continue current medications. (4) Essential hypertension: Code(s): I10 - Essential (primary) hypertension Status: Acute Assessment and Plan: Patient's blood pressure was reviewed on 10/28 Blood pressure soft at times Will continue current medications. (5) Hyperthyroidism: Code(s): E05.90 - Thyrotoxicosis, unspecified without thyrotoxic crisis or storm Status: Acute Assessment and Plan: TSH normal. Continue with Tapazole (6) COPD (chronic obstructive pulmonary disease): Code(s): J44.9 - Chronic obstructive pulmonary disease, unspecified Status: Acute Assessment and Plan: No wheezing. Xopenex available prn (7) Obstructive sleep apnea: Code(s): G47.33 - Obstructive sleep apnea (adult) (pediatric) Status: Acute Assessment and Plan: According to the records the patient was approved for a trilogy. Continue BiPAP here (8) Chronic, continuous use of opioids: Code(s): F11.90 - Opioid use, unspecified, uncomplicated Status: Acute Assessment and Plan: The patient has peripheral neuropathy and is being followed by a doctor for this. Continue with Lyrica and [place]. He no longer takes Gabapentin. 10/28: d/c lyrica and celexa, trial cymbalta, check B12, folate, check standing foot xrays Plan DVT prophylaxis with SCDs GI prophylaxis not indicated Code status full code DS: Summary Hospital Course Hospital Course: 62yo male with hx of CHF, DM and AFib here for headache and found to have AFib/RVR HR improved. Still c/o B/L foot pain, severe. He has also noted intermittent headaches, resolved at this point. He is requesting a AAA US to rule out aneurysm. He would also like the blood flow to his feet to be evaluated due to the severe, stabbing pain that is unresolved with gabapentin, lyrica. [place] only helps a little. Requesting oxycodone. Lyrica and celexa d/c in favor of cymbalta due to uncontrolled diabetic neuropathy and depression/anxiety. The patient was given IV Cardize
[2022-10-29 17:14] LABS: Glucose Point of Care 165 mg/dl (65-105)
== END 2022-10-29 19:22 | disposition home or self-care (01) | DRG 309 ==
LOC: ANHED 08:17 → ANHIMU 12:48 → ANH3MED 10-29 17:20 → ANHIMU 10-30 13:29 → ANH3MED 10-30 13:29
PROVIDERS: Internal Medicine; Nurse Practitioner; Admitting Provider Family Medicine; Emergency Provider Emergency Medicine; PCP Internal Medicine; Visit Provider Student in an Organized Health Care Education/Training Program
DX: I48.21 Permanent atrial fibrillation (principal); I50.32 Chronic diastolic (congestive) heart failure; J96.11 Chronic respiratory failure with hypoxia; I48.20 Chronic atrial fibrillation, unspecified; I69.320 Aphasia following cerebral infarction; I11.0 Hypertensive heart disease with heart failure; I25.10 Atherosclerotic heart disease of native coronary artery without angina pectoris; J44.9 Chronic obstructive pulmonary disease, unspecified; D64.9 Anemia, unspecified; E05.90 Thyrotoxicosis, unspecified without thyrotoxic crisis or storm; E11.42 Type 2 diabetes mellitus with diabetic polyneuropathy; E78.5 Hyperlipidemia, unspecified; M79.672 Pain in left foot; M79.671 Pain in right foot; M47.816 Spondylosis without myelopathy or radiculopathy, lumbar region; G47.33 Obstructive sleep apnea (adult) (pediatric); F10.21 Alcohol dependence, in remission; F32.A Depression, unspecified; F41.9 Anxiety disorder, unspecified; Z99.81 Dependence on supplemental oxygen; Z95.1 Presence of aortocoronary bypass graft; Z79.01 Long term (current) use of anticoagulants; Z87.891 Personal history of nicotine dependence; Z79.84 Long term (current) use of oral hypoglycemic drugs; Z79.891 Long term (current) use of opiate analgesic
CPT/HCPCS: 36415; 71046; 72100; 73620; 73700; 76706; 80048; 80053; 80069; 81003; 82607; 82746; 82948; 83036; 83605; 83735; 83880; 84443; 84484; 85025; 85610; 85730; 93005; 93306; 93922; 94660; 96365; 96366; 96375; 96376; 99285; A9270; G0378; J1170; J1815; J3010; J3420

== ENCOUNTER 2022-11-16 09:31 | Emergency (ER) | payer MEDICARE, MEDICAID, SELFPAY ==
--- NOTE | 2022-11-16 09:34 | ED.SOB ---
HPI - SOB/Dyspnea General Chief Complaint: Shortness of Breath/Dyspnea Stated Complaint: shortness of breath/leg swelling Time Seen by Provider: 11/16/22 09:33 Source: patient Mode of arrival: ambulatory Limitations: no limitations History of Present Illness HPI Narrative: John is a 62-year-old male patient presenting to the clinic today with complaints of shortness of breath and leg swelling x1 week. Was in the hospital at [place] 2 weeks ago for CHF. 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 Did not call primary care or oil tanker captain this morning. Having increase in shortness of breath, lower extremity edema, and weight gain. Related Data Home Medications Medication Instructions Recorded Confirmed metoprolol tartrate 100 mg tablet 100 mg PO BID 10/27/22 11/16/22 metolazone 5 mg tablet 5 mg PO 3XW 11/16/22 11/16/22 Allergies Allergy/AdvReac Type Severity Reaction Status Date / Time morphine AdvReac Unknown Increased Verified 11/16/22 09:39 HR Review of Systems Review of Systems: Pertinent positives per HPI. Patient denies any fever, chills, rash, headache, visual changes, dizziness, runny nose, sore throat, chest pain, palpitations, nausea, vomiting, diarrhea, constipation, abdominal pain, or any urinary issues. [facility] Past Medical History Medical History Cerebrovascular accident (~05/2018) With global aphasia, much improved with mild expressive aphasia. Chronic anemia Chronic atrial fibrillation With failed cardiac ablation and cardioversion on several occasions. On long-term Coumadin for stroke prophylaxis. Outreach Worker is Dr. Vasquez at [facility] [place]. Chronic respiratory failure with hypoxia, on home oxygen therapy 3 L nasal cannula with rest p.r.n. 4 L bleed in at nighttime. Congestive heart failure Echocardiogram on 03/27/2021 showed an enlarged left ventricular chamber with normal LV systolic function and an estimated EF of 55 to 60%, diastolic dysfunction, moderately enlarged right ventricular chamber, reduced RV systolic function, biatrial enlargement, mild regurgitation of annuloplasty ring of a prosthetic mitral valve, and mild pulmonary hypertension with an estimated pulmonary arterial systolic pressure of 44 mmHg. COPD (chronic obstructive pulmonary disease) Coronary artery disease (~2001) Status post three-vessel bypass. Depression with anxiety Essential hypertension Hyperlipidemia Hyperthyroidism MRSA colonization Obstructive sleep apnea Approved for trilogy unit in February 2020. Osteoarthritis Type 2 diabetes mellitus Hemoglobin A1c was 6.4% on 03/26/2021. Type 2 diabetes mellitus without complication, without long-term current use of insulin Valvular heart disease Status post mitral valve repair. Surgical History Surgical History History of coronary artery bypass graft x 3 History of mitral valve repair Family History Family History Father Family history of cardiovascular disease Family history of malignant neoplasm of bone Mother Family history of malignant neoplasm Sibling Family history of cardiovascular disease Social History Social History Social History: He lives with his and is retired from [employer] business. Surrogate decision maker: Alton Peters, brother. 3 daughters Code status: Full code. Smoking packs per day: 2 Smoking cigarettes per day: 40.0 Years smoked: 40 Smoking pack-years: 80.00 Smoking status: Former smoker Tobacco type: cigarettes Second hand tobacco smoke exposure: No Smoking end date: 07/12/17 Alcohol intake: current Alcohol use details: recovering alcohol
[2022-11-16 09:41] VITALS: BP 137/125; PULSE 112; RESP 18; TEMP 36.2; O2SAT 94
[2022-11-16 09:43] VITALS: BP 137/125; PULSE 112; RESP 18; TEMP 36.2; O2SAT 94
== END 2022-11-16 09:59 | disposition short-term general hospital (02) ==
PROVIDERS: Emergency Provider Nurse Practitioner Family
DX: R06.02 Shortness of breath (principal); R60.0 Localized edema; J44.9 Chronic obstructive pulmonary disease, unspecified; I50.9 Heart failure, unspecified; I11.0 Hypertensive heart disease with heart failure; I48.20 Chronic atrial fibrillation, unspecified; I25.10 Atherosclerotic heart disease of native coronary artery without angina pectoris; Z95.1 Presence of aortocoronary bypass graft; E78.5 Hyperlipidemia, unspecified; E05.90 Thyrotoxicosis, unspecified without thyrotoxic crisis or storm; G47.33 Obstructive sleep apnea (adult) (pediatric); M19.90 Unspecified osteoarthritis, unspecified site; E11.9 Type 2 diabetes mellitus without complications; Z79.4 Long term (current) use of insulin; Z87.891 Personal history of nicotine dependence
CPT/HCPCS: 99212; G0463

== ENCOUNTER 2022-11-16 10:14 | Inpatient (IN) | payer MEDICARE, MEDICAID, SELFPAY ==
[2022-11-16] VITALS (16 sets, daily range): BP systolic 95–114; BP diastolic 42–86; PULSE 70–120; RESP 20–24; TEMP 36.3–36.7; O2SAT 93–99; BMI 40.7
--- NOTE | ~2022-11-16 | XR_ITS ---
XR chest 2V 11/16/2022 10:53 Indication: Shortness of breath. COPD. CHF. Procedure: 2 view chest Comparison: Comparison to multiple prior studies sequentially, with oldest reviewed study dated 04/11. Findings: Status post median sternotomy for CABG. Cardiomegaly. Mild interstitial edema. Small pleura l effusions. No pneumothorax. Impression: 1: Mild interstitial edema. 2: Small pleural effusions. Reviewed, dictated and finalized at location B. Impression: 1: Mild interstitial edema. 2: Small pleural effusions.
--- NOTE | 2022-11-16 10:27 | ECG_ITS ---
Measurements Intervals [place] Rate: 117 P: VA: 0 QRS: 100 QRSD: 96 T: 8 QT: 337 QTc: 471 Interpretive Statements ATRIAL FIBRILLATION WITH RAPID VENTRICULAR RESPONSE VENTRICULAR PREMATURE COMPLEX RIGHT AXIS DEVIATION CONSIDER ANTERIOR INFARCT, AGE INDETERMINATE BASELINE ARTIFACT- V3, V6 ABNORMAL ECG COMPARED TO ECG 10/25/2022 07:23:25 NO SIGNIFICANT CHANGES Electronically Signed On 11-16-2022 11:07:00 CDT by Charli Griffiths D.O.
[2022-11-16 10:39] LABS: Basophils Absolute Auto 0.1 K/mm3 (0.0-0.1); Basophils Percent Auto 0.5 % (0.2-1.2); Eosinophils Absolute Auto 0.2 K/mm3 (0-0.3); Hematocrit 41.7 % (42.0-52.0); Hemoglobin 13.4 g/dL (14.0-18.0); Immature Granulocyte Absolute 0.06 K/mm3 (0.00-0.031); Immature Granulocyte Percent A 0.6 % (0-0.5); Lymphocytes Percent Auto 8.7 % (18.3-44.2); Mean Corpuscular HGB Conc 32.1 g/dl (32-36); Mean Corpuscular Hemoglobin 29.9 pg (26-34); Mean Corpuscular Volume 93.1 fl (80-100); Mean Platelet Volume 9.4 fl (7.4-10.4); Monocytes Absolute Auto 0.8 K/mm3 (0.1-0.6); Monocytes Percent Auto 7.9 % (2.6-8.5); Neutrophils Absolute Auto 8.3 K/mm3 (1.3-6.7); Neutrophils Percent Auto 80.3 % (45.5-73.1); Platelet Count Result 185 k/mm3 (150-375); Red Blood Count 4.48 M/mm3 (4.6-6.20); Red Cell Distribution Width 15.7 % (11.5-14.5); White Blood Count 10.4 K/mm3 (4.5-10.0)
[2022-11-16 10:46] LABS: Alanine Aminotransferase 49 U/L (6-50); Albumin Level 4.1 g/dL (3.5-5.1); Alkaline Phosphatase 122 U/L (38-126); Anion Gap 8 mmol/L (8-16); Aspartate Amino Transferase 30 U/L (17-59); Bilirubin,Total 0.9 mg/dL (0.2-1.3); Blood Urea Nitrogen 12 mg/dL (9-20); Calcium 8.5 mg/dL (8.4-10.2); Carbon Dioxide 29 mmol/L (22-30); Chloride 101 mmol/L (98-107); Estimated CRCL calculation 105 ml/min; Estimated Glomerular Filt Rate > 60; Glucose 174 mg/dL (65-110); Potassium 3.8 mmol/L (3.4-5.0); Sodium 138 mmol/L (137-145)
--- NOTE | 2022-11-16 11:15 | ED.SOB ---
HPI - SOB/Dyspnea General Chief Complaint: Shortness of Breath/Dyspnea Stated Complaint: sob, chf Time Seen by Provider: 11/16/22 10:45 History of Present Illness HPI Narrative: This is a 62-year-old male with history of CHF, COPD and coronary artery disease, who presents to the emergency department complaining of shortness of breath and bilateral lower extremity swelling for the past several days. He states he was admitted to this hospital 2 weeks ago for CHF exacerbation with adjustment to his medications. Over the past week he has had increased bilateral lower extremity swelling and shortness of breath. He complains of mild chest tightness and nausea but has no other pain Related Data Home Medications Medication Instructions Recorded Confirmed metoprolol tartrate 100 mg tablet 100 mg PO BID 10/27/22 11/16/22 metolazone 5 mg tablet 5 mg PO 3XW 11/16/22 11/16/22 Allergies Allergy/AdvReac Type Severity Reaction Status Date / Time morphine AdvReac Unknown Increased Verified 11/16/22 09:39 HR Review of Systems Review of Systems: CONSTITUTIONAL: Denies fever, chills, or sweats. CARDIOVASCULAR: Chest tightness and lower extremity edema denies palpitations, RESPIRATORY: Dyspnea on exertion denies cough GASTROINTESTINAL: Nausea, nonbloody vomiting denies abdominal pain or diarrhea. GENITOURINARY: Denies dysuria or hematuria. SKIN: Denies rash or itching. MUSCULOSKELETAL: Denies back pain, joint pain, or myalgia. NEUROLOGIC: Denies headache, numbness, dizziness, or weakness. PSYCHIATRIC: Denies anxiety or depression. [facility] Past Medical History Medical History Cerebrovascular accident (~05/2018) With global aphasia, much improved with mild expressive aphasia. Chronic anemia Chronic atrial fibrillation With failed cardiac ablation and cardioversion on several occasions. On long-term Coumadin for stroke prophylaxis. Ornament Stapler is Dr. Vasquez at [facility] Chronic respiratory failure with hypoxia, on home oxygen therapy 3 L nasal cannula with rest p.r.n. 4 L bleed in at nighttime. Congestive heart failure Echocardiogram on 03/27/2021 showed an enlarged left ventricular chamber with normal LV systolic function and an estimated EF of 55 to 60%, diastolic dysfunction, moderately enlarged right ventricular chamber, reduced RV systolic function, biatrial enlargement, mild regurgitation of annuloplasty ring of a prosthetic mitral valve, and mild pulmonary hypertension with an estimated pulmonary arterial systolic pressure of 44 mmHg. COPD (chronic obstructive pulmonary disease) Coronary artery disease (~2001) Status post three-vessel bypass. Depression with anxiety Essential hypertension Hyperlipidemia Hyperthyroidism MRSA colonization Obstructive sleep apnea Approved for trilogy unit in February 2020. Osteoarthritis Type 2 diabetes mellitus Hemoglobin A1c was 6.4% on 03/26/2021. Type 2 diabetes mellitus without complication, without long-term current use of insulin Valvular heart disease Status post mitral valve repair. Surgical History Surgical History History of coronary artery bypass graft x 3 History of mitral valve repair Family History Family History Father Family history of cardiovascular disease Family history of malignant neoplasm of bone Mother Family history of malignant neoplasm Sibling Family history of cardiovascular disease Social History Social History Social History: He lives alone and is retired from [employer] business. Surrogate decision maker: Alton Peters, brother. 3 daughters Code status: Full code. Smoking packs per day: 2 Smoking cigarettes per day: 40.0 Years smoked: 40 Smoking pack-years: 80.00 Smoking
[2022-11-16 12:04] LABS: INR 1.2; Prothrombin Time 15.2 Seconds (11.1-14.7)
[2022-11-16 12:15] LABS: NT Pro B Type Natriuretic Pept 1030 pg/mL (19.9-100); Troponin I < 0.012 ng/mL (0.000-0.034)
--- NOTE | 2022-11-16 13:47 | PM.IMHP ---
H&P: HPI History of Present Illness Date/Time: 11/16/22 13:47 Chief Complaint: Shortness of breath and increased swelling to lower extremities. Narrative: This is a 62-year-old male patient who has a history of atrial fibrillation, diabetes, COPD could, CAD, and congestive heart failure. The patient was discharged from here on 10/29/2022 with some medication changes. His echo at that time shows EF of 40-45% with grade 1 diastolic dysfunction dilated RV and dysfunction. Mitral valve repair and biatrial enlargement. His Lyrica and Celexa were discontinued at that time. Patient is now complaining of diabetic neuropathy. The patient did follow-up with his associate manager after he was discharged from the hospital. The patient went to the urgent care today because he had been complaining shortness of breath and bilateral lower extremity swelling over the last several days. The urgent care sent him to the hospital. The patient complains mild chest tightness and nausea. He also has increased lower extremity pain and swelling. The patient has been weak over the last week. Her white count is 10.4. H&H is 13.4 in 41.7. Blood glucose is 174. BNP is 1030. Chest x-ray was as mild interstitial edema. Small pleural effusions. Patient's heart rate has been stain above 110 any send AFib with RVR. The patient was switched to IMU status. Date of service is 11/16/2022. Review of Systems Review of Systems: All systems reviewed & are unremarkable except as noted in HPI and below Constitutional: Constitutional: Reports as per HPI and Reports no additional constitutional complaints Eyes: Eyes: Reports as per HPI and Reports no additional eye complaints ENT: Reports system reviewed and no additional complaints, except as documented and Reports Normal hearing present Cardiovascular: Cardiovascular: Reports no additional cardiovascular complaints Respiratory: Respiratory: Reports no additional respiratory complaints and Reports no additional respiratory complaints Gastrointestinal: Gastrointestinal: Reports as per HPI and Reports no additional gastrointestinal complaints Musculoskeletal: Musculoskeletal: Reports no additional musculoskeletal complaints Integumentary/Breasts: Skin/Breast: Reports system reviewed and no additional complaints, except as docu and Reports as per HPI Neurologic: Reports system reviewed and no additional complaints, except as documented, Reports as per HPI and Reports Normal hearing present Psychiatric: Psychiatric: Reports no additional psychiatric complaints and Reports as per HPI Endocrine: Endocrine: Reports no additional endocrine complaints Hematologic/Lymphatic: Hematologic/Lymphatic: Reports no additional hematologic/lymphatic complaints Allergic/Immunologic: Allergic/Immunologic: Reports no additional allergic/immunologic complaints [facility] Past Medical History Medical History Cerebrovascular accident (~05/2018) With global aphasia, much improved with mild expressive aphasia. Chronic anemia Chronic atrial fibrillation With failed cardiac ablation and cardioversion on several occasions. On long-term Coumadin for stroke prophylaxis. Group Director is Dr. Vasquez at [facility]. Chronic respiratory failure with hypoxia, on home oxygen therapy 3 L nasal cannula with rest p.r.n. 4 L bleed in at nighttime. Congestive heart failure Echocardiogram on 03/27/2021 showed an enlarged left ventricular chamber with normal LV systolic function and an estimated EF of 55 to 60%, diastolic dysfunction, moderately enlarged right ventricular chamber, reduced RV systolic function, biatrial enlargement, mild regurgitation of annuloplasty ring of a prosthetic mitral valve, and mild pulmonary hypertension with an estimated pulmonary arterial systolic pressure of 44 mmHg. COPD (chronic obstructive pulmonary disease) Coronary artery disease (~2001) Status post three-vessel
[2022-11-16] MEDS: AMIODARONE 150 MG/D5W 100 ML 150 MG/100 ML BAG 600 MG IV CONT ×2 (14:08→14:22)
[2022-11-16 14:48] LABS: Troponin I < 0.012 ng/mL (0.000-0.034)
[2022-11-16] MEDS: AMIODARONE 360 MG/D5W 200 ML 360 MG/200 ML BAG 16.67 MG IV CONT (14:52)
--- NOTE | 2022-11-16 15:58 | ADMGEN ---
This patient, John Peters, was admitted to IMU Room 202-01. Patient/family oriented to hospital policies and general routines including ID bracelet, bed and alarms, visiting hours, pain management, procedures, bathroom and other care routines, personal items, smoking policy, room service/diet, and visiting hours. Information on how to activate the Rapid Response Team has been discussed. Patient/Family are encouraged to report perceived risks to care and to ask questions if they do not understand what they are told or what they should do.
[2022-11-16 16:32] LABS: Glucose Point of Care 172 mg/dl (65-105)
[2022-11-16 19:47] LABS: Glucose Point of Care 195 mg/dl (65-105)
[2022-11-16] MEDS: oxyCODONE HCL (*CRX) 5 MG TAB IR PO (20:36)
[2022-11-16] MEDS: ATORVASTATIN 40 MG TABLET PO (20:36)
[2022-11-16] MEDS: APIXABAN 5 MG TABLET PO (20:36)
[2022-11-16] MEDS: metFORMIN HCL 500 MG TABLET 1000 MG PO (20:36)
[2022-11-17] VITALS (20 sets, daily range): BP systolic 101–131; BP diastolic 61–82; PULSE 92–136; RESP 20–24; TEMP 35.9–36.7; O2SAT 94–98
[2022-11-17] MEDS: AMIODARONE 360 MG/D5W 200 ML 360 MG/200 ML BAG 16.67 MG IV CONT (01:45)
[2022-11-17] MEDS: oxyCODONE HCL (*CRX) 5 MG TAB IR PO ×4 (01:48→18:15)
[2022-11-17 04:57] LABS: Basophils Percent Auto 0.5 % (0.2-1.2); Eosinophils Absolute Auto 0.3 K/mm3 (0-0.3); Eosinophils Percent Auto 3.5 % (0-4.4); Hematocrit 40.6 % (42.0-52.0); Hemoglobin 12.4 g/dL (14.0-18.0); Immature Granulocyte Absolute 0.03 K/mm3 (0.00-0.031); Immature Granulocyte Percent A 0.4 % (0-0.5); Lymphocytes Absolute Auto 1.19 K/mm3 (0.9-3.2); Lymphocytes Percent Auto 15.5 % (18.3-44.2); Mean Corpuscular HGB Conc 30.5 g/dl (32-36); Mean Corpuscular Hemoglobin 29.5 pg (26-34); Mean Corpuscular Volume 96.7 fl (80-100); Mean Platelet Volume 9.2 fl (7.4-10.4); Monocytes Absolute Auto 0.7 K/mm3 (0.1-0.6); Monocytes Percent Auto 9.2 % (2.6-8.5); Neutrophils Absolute Auto 5.5 K/mm3 (1.3-6.7); Neutrophils Percent Auto 70.9 % (45.5-73.1); Platelet Count Result 165 k/mm3 (150-375); Red Cell Distribution Width 15.8 % (11.5-14.5); White Blood Count 7.7 K/mm3 (4.5-10.0)
[2022-11-17 05:06] LABS: Lactic Acid Reflex 2.4 mmol/L (0.7-2.0)
[2022-11-17 07:49] LABS: Reflex Lactic Acid Yes or No Add Lactic
[2022-11-17 07:53] LABS: Glucose Point of Care 152 mg/dl (65-105)
[2022-11-17] MEDS: EMPAGLIFLOZIN 25 MG TABLET PO (08:16)
[2022-11-17] MEDS: DULoxetine HCL 30 MG CAPSULE.DR PO (08:16)
[2022-11-17] MEDS: BUMETANIDE 1 MG TABLET 2 MG PO (08:16)
[2022-11-17] MEDS: APIXABAN 5 MG TABLET PO ×2 (08:17→18:20)
[2022-11-17] MEDS: metFORMIN HCL 500 MG TABLET 1000 MG PO (08:17)
[2022-11-17] MEDS: DOCUSATE SODIUM 100 MG CAPSULE PO (08:17)
[2022-11-17 08:19] LABS: Lactic Acid 1.7 mmol/L (0.7-2.0)
--- NOTE | 2022-11-17 08:40 | PM.IMPN ---
Progress Note: A&P Assessment and Plan (1) Atrial fibrillation with RVR: Code(s): I48.91 - Unspecified atrial fibrillation Status: Acute Assessment and Plan: Appreciate cardiology consultation, continue amiodarone for now, defer further management to their recommendations Currently rate controlled with heart rate less than 110, continue Eliquis (2) CHF exacerbation: Code(s): I50.9 - Heart failure, unspecified Status: Acute Assessment and Plan: Appreciate cardiology consultation, diurese with IV Bumex, metolazone, Eliquis Strict I's/O's, daily standing weights requested Monitor diuresis closely (3) Hyperthyroidism: Code(s): E05.90 - Thyrotoxicosis, unspecified without thyrotoxic crisis or storm Status: Acute Assessment and Plan: Continue with Tapazole Check TSH/T3/T4 (4) Chronic back pain: Code(s): M54.9 - Dorsalgia, unspecified; G89.29 - Other chronic pain Status: Acute Assessment and Plan: Continue home pain medications Increase Cymbalta to 60 mg daily (5) Chronic anemia: Code(s): D64.9 - Anemia, unspecified Status: Acute Assessment and Plan: His H&H is at his baseline. (6) Essential hypertension: Code(s): I10 - Essential (primary) hypertension Status: Acute Assessment and Plan: Continue home metoprolol (7) Depression with anxiety: Code(s): F41.8 - Other specified anxiety disorders Status: Chronic Assessment and Plan: Continue with Cymbalta (8) HERNAN (obstructive sleep apnea): Code(s): G47.33 - Obstructive sleep apnea (adult) (pediatric) Status: Acute Assessment and Plan: Patient is on a trilogy at home. (9) Type 2 diabetes mellitus: Qualifiers: Diabetes mellitus complication status: with other specified complication Diabetes mellitus diamond selector insulin use: with diamond selector use Qualified Code(s): E11.69 - Type 2 diabetes mellitus with other specified complication; Z79.4 - [facility] (current) use of insulin Code(s): E11.9 - Type 2 diabetes mellitus without complications Status: Acute Assessment and Plan: Continue with Accu-Cheks AC and HS and sliding scale insulin. Metformin is on hold at this time. A1c 7.8 Blood glucose reviewed 11/17 (10) COPD (chronic obstructive pulmonary disease): Code(s): J44.9 - Chronic obstructive pulmonary disease, unspecified Status: Acute Assessment and Plan: Continue with home nebulizers Plan DVT prophylaxis with Eliquis GI prophylaxis not indicated Code status full code Subjective Date/time seen: 11/17/22 08:40 Interval history: 62-year-old male with history of AFib, diabetes, heart failure is presenting with shortness of breath, chest pain and lower extremity edema, found to have AFib with RVR. No overnight events noted. No chest pain. No nausea, vomiting or diarrhea. No fevers or chills. Patient states he had progressively worsening shortness of breaths of the last 4 days, a little better since coming in now. He also noted decreased urine output and lower extremity swelling. Review of Systems Review of Systems: 12 point review of systems was assessed and was negative except as noted in the HPI Exam Narrative: General: No acute distress, alert and oriented per baseline HEENT: Atraumatic, normocephalic, mucous membranes moist, exophthalmos noted bilaterally CV: Regular rate and rhythm, S1, S2 Lungs: Moderate air entry, scattered crackles noted, no wheeze Abdomen: Soft, nontender, nondistended Extremities: Normal to inspection, bilateral 2+ nonpitting edema noted Skin: No rashes noted, no lesions or wounds seen Psych: Euthymic, normal affect Objective Data Vital Signs Vital Signs: Vital Signs - 24 hr 11/16/22 10:18 11/16/22 10:29 11/16/22 10:33 Temperature 97.6 F Pulse
[2022-11-17] MEDS: POTASSIUM CHLORIDE 20 MEQ TABLET.ER 40 MEQ PO ×2 (10:31→18:22)
[2022-11-17] MEDS: GABAPENTIN 300 MG CAPSULE BY MOUTH ×3 (10:32→18:22)
[2022-11-17] MEDS: METOPROLOL TARTRATE 50 MG TAB 100 MG PO ×2 (10:32→20:25)
[2022-11-17] MEDS: methiMAzole 10 MG TAB 20 MG PO (10:32)
[2022-11-17 12:00] LABS: Glucose Point of Care 198 mg/dl (65-105)
--- NOTE | 2022-11-17 12:21 | PM.CNCAR ---
Assessment and Plan Assessment and plan (1) Acute on chronic combined systolic and diastolic CHF (congestive heart failure): Code(s): I50.43 - Acute on chronic combined systolic (congestive) and diastolic (congestive) heart failure Status: Acute Assessment and Plan: Patient is readmitted with another episode of acute on chronic CHF, failing outpatient therapy with increasing diuretics. Probably aggravated by his underlying atrial fibrillation , RVR. --Change po Bumex to IV if BP tolerates --Daily BMP --Control a fib (2) Atrial fibrillation with RVR: Code(s): I48.91 - Unspecified atrial fibrillation Status: Acute Assessment and Plan: A fib,, which appears permanent, is difficult to control despite high dose metoprolol. IV amiodarone is reasonable, chad since pt runs a soft BP and has some LV dysfxn (thus resuming diltiazem has disadvantages), though with his COPD he is at risk of pulm complications. Seems to have helped w/ his heart rate already. --OPT PFTs --Cont Eliquis, amio --Perhaps resume the diltiazem and DC amio as OPT if/when LV fxn and BP improve (3) Cardiomyopathy: Code(s): I42.9 - Cardiomyopathy, unspecified Status: Acute Assessment and Plan: CArdiomyopathy with mid-range EF, 40-45% in October 2022, which declined from his echo of March 2021 when his EF was 55-60. Perhaps due to his AFib RVR and potentially reversible. -- Unable to add losartan or Entresto at this time due to soft blood pressure --Cont Jardiance, BB. (4) Mitral valve disease: Code(s): I05.9 - Rheumatic mitral valve disease, unspecified Status: Acute Assessment and Plan: H/O MV repair with only mild residual regurgitation. (5) Coronary artery disease: Onset Date: ~2001 Code(s): I25.10 - Atherosclerotic heart disease of [place] coronary artery without angina pectoris Status: Acute Assessment and Plan: CAD and h/o CABG, stable. I think the fullness pt is experiencing is due to his CHF and a fib. (6) Chronic obstructive pulmonary disease, unspecified: Qualifiers: COPD type: unspecified COPD Qualified Code(s): J44.9 - Chronic obstructive pulmonary disease, unspecified Code(s): J44.9 - Chronic obstructive pulmonary disease, unspecified Status: Chronic Assessment and Plan: H/O COPD and HERNAN. History of Present Illness History of Present Illness Consult date/time: 11/17/22 12:21 Reason For Visit: CHF Exacerbation Narrative: John Peters is a 62 y.o. male whom I was asked to see by Dr. Placido Stark for our advice regarding the patient's recurrent CHF in consultation. He has a history of diastolic heart failure, CAD & CABG, mitral valve repair about 10 years ago, permanent atrial fibrillation, COPD, HERNAN, hypertension and diabetes. The patient was hospitalized here in October for atrial fibrillation RVR and CHF, discharged taking metoprolol 100 mg b.i.d.., Bumex 1 mg 2 tablets b.i.d., and others. His diltiazem was discontinued due to his decreased LV function, as was his metolazone. EF 40-45% with diastolic dysfunction. He was seen by our nurse practitioner for follow-up on 11/12/2022. He appeared to be in mild CHF and she resumed metolazone 5 mg 1 daily for 3 days than Wednesdays and Fridays. He was in AFib with a rate of 109 beats per minute at that time. The patient presented to the emergency room yesterday with increasing edema and shortness of breath. He also has some chest fullness. He was found to be in AFib RVR, heart rate in the 130s, and has been started on IV amiodarone. His oral Bumex and metolazone are continued. Blood pressure has been soft, running around 100 systolic. He states he has been compliant with his medications (his brother Alton lays them out for him). Review of Systems Constitutional: Constitutional: Denies fever(s) Eyes: Eyes: Reports no additional eye com
[2022-11-17 13:56] LABS: Hemoglobin A1C 7.8 % (<5.7)
[2022-11-17 16:38] LABS: Glucose Point of Care 136 mg/dl (65-105)
[2022-11-17] MEDS: BUMETANIDE INJ 2.5 MG/10 ML VIAL 2 MG IV PUSH (18:20)
[2022-11-17 19:47] LABS: Glucose Point of Care 161 mg/dl (65-105)
[2022-11-17] MEDS: ATORVASTATIN 40 MG TABLET PO (20:25)
[2022-11-18] VITALS (17 sets, daily range): BP systolic 91–120; BP diastolic 55–81; PULSE 80–108; RESP 18–22; TEMP 36–36.6; O2SAT 93–99
--- NOTE | 2022-11-18 06:28 | PC.NURSE ---
Addendum entered by Cruz Bender RN 11/18/22 06:30: 11/17/[id number] -11/18/22619 Original Note: Paper documentation exists on this patient due to [employer] downtime on 11/18/22 2100 from to 11/18/22619.
[2022-11-18 06:33] LABS: Basophils Percent Auto 0.6 % (0.2-1.2); Eosinophils Absolute Auto 0.2 K/mm3 (0-0.3); Eosinophils Percent Auto 3.4 % (0-4.4); Hematocrit 40.2 % (42.0-52.0); Hemoglobin 12.6 g/dL (14.0-18.0); Immature Granulocyte Absolute 0.02 K/mm3 (0.00-0.031); Immature Granulocyte Percent A 0.3 % (0-0.5); Lymphocytes Absolute Auto 1.18 K/mm3 (0.9-3.2); Lymphocytes Percent Auto 17.7 % (18.3-44.2); Mean Corpuscular HGB Conc 31.3 g/dl (32-36); Mean Corpuscular Hemoglobin 29.5 pg (26-34); Mean Corpuscular Volume 94.1 fl (80-100); Mean Platelet Volume 9.4 fl (7.4-10.4); Monocytes Absolute Auto 0.6 K/mm3 (0.1-0.6); Monocytes Percent Auto 8.2 % (2.6-8.5); Neutrophils Absolute Auto 4.7 K/mm3 (1.3-6.7); Neutrophils Percent Auto 69.8 % (45.5-73.1); Platelet Count Result 170 k/mm3 (150-375); Red Blood Count 4.27 M/mm3 (4.6-6.20); Red Cell Distribution Width 15.5 % (11.5-14.5); White Blood Count 6.7 K/mm3 (4.5-10.0)
[2022-11-18 06:55] LABS: Alanine Aminotransferase 40 U/L (6-50); Albumin Level 3.8 g/dL (3.5-5.1); Alkaline Phosphatase 110 U/L (38-126); Anion Gap 5 mmol/L (8-16); Aspartate Amino Transferase 25 U/L (17-59); Bilirubin,Total 0.7 mg/dL (0.2-1.3); Blood Urea Nitrogen 15 mg/dL (9-20); Calcium 8.4 mg/dL (8.4-10.2); Carbon Dioxide 32 mmol/L (22-30); Chloride 100 mmol/L (98-107); Estimated CRCL calculation 105 ml/min; Estimated Glomerular Filt Rate > 60; Glucose 124 mg/dL (65-110); Potassium 3.6 mmol/L (3.4-5.0); Sodium 137 mmol/L (137-145)
[2022-11-18] MEDS: POTASSIUM CHLORIDE 20 MEQ TABLET.ER 40 MEQ PO ×2 (08:37→17:29)
[2022-11-18] MEDS: BUMETANIDE INJ 2.5 MG/10 ML VIAL 2 MG IV PUSH ×2 (08:38→17:28)
[2022-11-18] MEDS: EMPAGLIFLOZIN 25 MG TABLET PO (08:39)
[2022-11-18] MEDS: methiMAzole 10 MG TAB 20 MG PO (08:39)
[2022-11-18] MEDS: METOPROLOL TARTRATE 50 MG TAB 100 MG PO ×2 (08:40→20:09)
[2022-11-18 08:41] LABS: Glucose Point of Care 144 mg/dl (65-105)
[2022-11-18] MEDS: DULoxetine HCL 60 MG CAPSULE.DR PO (08:41)
[2022-11-18] MEDS: APIXABAN 5 MG TABLET PO ×2 (08:42→17:29)
[2022-11-18] MEDS: GABAPENTIN 300 MG CAPSULE BY MOUTH ×3 (08:43→17:29)
[2022-11-18] MEDS: oxyCODONE HCL (*CRX) 5 MG TAB IR PO ×3 (08:55→20:21)
[2022-11-18 12:08] LABS: Glucose Point of Care 177 mg/dl (65-105)
--- NOTE | 2022-11-18 13:23 | PM.PNCARD ---
Progress Note: A&P Assessment and Plan (1) Acute on chronic combined systolic and diastolic CHF (congestive heart failure): Code(s): I50.43 - Acute on chronic combined systolic (congestive) and diastolic (congestive) heart failure Status: Acute Assessment and Plan: Patient is readmitted with another episode of acute on chronic CHF, failing outpatient therapy with increasing diuretics. Probably aggravated by his underlying atrial fibrillation , RVR. --continue IV Bumex for another day --Daily BMP --Control a fib --possible discharge on (2) Atrial fibrillation with RVR: Code(s): I48.91 - Unspecified atrial fibrillation Status: Acute Assessment and Plan: A fib,, which appears permanent, is difficult to control despite high dose metoprolol. Improved after treatment of CHF and amiodarone bolus. Likely will have more trouble with AFib RVR with doubt further treatment. Normal renal function. Will add digoxin. Other options include p.o. amiodarone or resuming diltiazem if his LV function improves. --Cont Eliquis --Load w/ p.o. digoxin; will need outpatient follow-up for digoxin levels etc.. --Perhaps resume the diltiazem as OPT if/when LV fxn and BP improve (3) Cardiomyopathy: Code(s): I42.9 - Cardiomyopathy, unspecified Status: Acute Assessment and Plan: CArdiomyopathy with mid-range EF, 40-45% in October 2022, which declined from his echo of March 2021 when his EF was 55-60. Perhaps due to his AFib RVR and potentially reversible. -- Unable to add losartan or Entresto at this time due to soft blood pressure --Cont Jardiance, BB. (4) Mitral valve disease: Code(s): I05.9 - Rheumatic mitral valve disease, unspecified Status: Acute Assessment and Plan: H/O MV repair with only mild residual regurgitation. (5) Coronary artery disease: Onset Date: ~2001 Code(s): I25.10 - Atherosclerotic heart disease of [place] coronary artery without angina pectoris Status: Acute Assessment and Plan: CAD and h/o CABG, stable. I think the fullness pt is experiencing is due to his CHF and a fib. (6) Chronic obstructive pulmonary disease, unspecified: Qualifiers: COPD type: unspecified COPD Qualified Code(s): J44.9 - Chronic obstructive pulmonary disease, unspecified Code(s): J44.9 - Chronic obstructive pulmonary disease, unspecified Status: Chronic Assessment and Plan: H/O COPD and HERNAN. Subjective Date/time seen: 11/18/22 13:23 Interval history: Follow-up for acute on chronic systolic and diastolic heart failure, AFib RVR. Mr Peters has a history of diastolic heart failure, CAD & CABG, mitral valve repair about 10 years ago, permanent atrial fibrillation, COPD, HERNAN, hypertension and diabetes. EF 40-45%. Diltiazem recently discontinued due to LV dysfxn, metolazone DC'd and pt readmitted w/ a fib RVR and CHF. 11/17/2022: changed diuretics to IV and amiodarone bolus. Date of service 11/18/2022: Feels better, less short of breath and no palpitations. Some GARCIA persists. Systolic BP runs 91-131 mmHg. Diuresed 1100 cc yesterday. On room air. Renal function stable. Amiodarone bolus yesterday, now Tele = a fib, heart rate generally in the 90s. Pt w/ chronic neuropathic pain, asking about seeing a Chronic correctional casework specialist as OPT. Review of Systems Review of Systems: Some GARCIA, no shortness of breath at rest, palpitations improved, no chest pain. Still has lower extremity edema and chronic neuropathic pain. Exam Const: General: cooperative and comfortable; No confusion Orientation/consciousness: oriented to person, patient oriented x3 and No confusion HENMT: Mouth: Yes moist mucous membranes Eyes: EOM: EOMs intact bilaterally Neck: Neck: supple and no JVD Thyroid: thyroid normal Resp: Effort & Inspection: normal respiratory effort Auscultation: rales (Scattere
[2022-11-18] MEDS: DIGOXIN 250 MCG TABLET PO ×2 (14:20→20:10)
--- NOTE | 2022-11-18 14:43 | PM.IMPN ---
Progress Note: A&P Assessment and Plan (1) Atrial fibrillation with RVR: Code(s): I48.91 - Unspecified atrial fibrillation Status: Acute Assessment and Plan: Found to have AFib/RVR. Amiodarone stopped. Digoxin added 11/18 Continue Eliquis. Continue metoprolol. Rate controlled now. Appreciate cardiology input (2) CHF exacerbation: Code(s): I50.9 - Heart failure, unspecified Status: Acute Assessment and Plan: Acute on chronic systolic and diastolic CHF exacerbation. May right sided failure as well with dilated RV with RV systolic dysfunction. 10/26/22 Echo: Mild LV enlargement with mild global systolic dysfunction estimated EF 40-45%, diastolic function is grade I diastolic dysfunction, dilated RV with RV systolic dysfunction, biatrial dilation and previous annuloplasty ring mitral valve with mild MR. Diuresing with IV Bumex Strict I's/O's, daily weights. Monitor Cr. Monitor diuresis closely Appreciate cardiology consultation (3) Hyperthyroidism: Code(s): E05.90 - Thyrotoxicosis, unspecified without thyrotoxic crisis or storm Status: Acute Assessment and Plan: TSH normal. Continue with Tapazole (4) Essential hypertension: Code(s): I10 - Essential (primary) hypertension Status: Acute Assessment and Plan: Patient's blood pressure was reviewed on 11/18 Blood pressure remains well controlled. Will continue current medications. (5) Type 2 diabetes mellitus: Qualifiers: Diabetes mellitus complication status: with other specified complication Diabetes mellitus jail insulin use: with rodent exterminator use Qualified Code(s): E11.69 - Type 2 diabetes mellitus with other specified complication; Z79.4 - intermodal customer service (current) use of insulin Code(s): E11.9 - Type 2 diabetes mellitus without complications Status: Acute Assessment and Plan: A1c 7.8. The patient's blood glucose was reviewed on 11/18 Glucose remains well controlled. Continue AccuCheks covering with sliding scale. Hypoglycemia protocol available as needed. Continue current medications. (6) HERNAN (obstructive sleep apnea): Code(s): G47.33 - Obstructive sleep apnea (adult) (pediatric) Status: Acute Assessment and Plan: Stable. Patient compliant with treatment. Patient is on a trilogy at home. Continue here (7) COPD (chronic obstructive pulmonary disease): Code(s): J44.9 - Chronic obstructive pulmonary disease, unspecified Status: Acute Assessment and Plan: No wheezing. Continue with home nebulizers (8) Chronic back pain: Code(s): M54.9 - Dorsalgia, unspecified; G89.29 - Other chronic pain Status: Acute Assessment and Plan: Stable. Cymbalta increased to 60 mg daily. Continue home medications. Increase activity as toelrated. (9) Chronic anemia: Code(s): D64.9 - Anemia, unspecified Status: Acute Assessment and Plan: Mild normocytic anemia with Hgb running 12-13 range and stable. B12 level low end of normal at 247 on 10/28/22. Replace B12. (10) Depression with anxiety: Code(s): F41.8 - Other specified anxiety disorders Status: Chronic Assessment and Plan: Mood stable. Cymbalta increased. Continue with Cymbalta Plan DVT prophylaxis with Eliquis GI prophylaxis not indicated Code status full code Subjective Date/time seen: 11/18/22 14:43 Interval history: 62-year-old male with history of AFib, diabetes, heart failure is presenting with shortness of breath, chest pain and lower extremity edema, found to have AFib with RVR. Assuming care. Chart reviewed. Patient feels better today. No shortness of breath but does still have dyspnea on exertion. Chest pain. His pedal edema is improved. No clear reason why he continues to develop heart failure symptoms. Exam Narrative: AF 96.8 103/81 91 18 96% ra Gen - NARD Ch
[2022-11-18 16:53] LABS: Glucose Point of Care 142 mg/dl (65-105)
[2022-11-18] MEDS: CYANOCOBALAMIN INJ 1,000 MCG/ML VIAL 1000 MCG IM (17:36)
--- NOTE | 2022-11-18 18:58 | PC.NURSE ---
1600- asked pt to verified home medication metolazone- informed me to call his brother to verify med- that is brother takes care of medication- pt 's brother Alton stated pt takes on med MWF
[2022-11-18 19:46] LABS: Glucose Point of Care 164 mg/dl (65-105)
[2022-11-18] MEDS: ATORVASTATIN 40 MG TABLET PO (20:10)
[2022-11-19] VITALS (15 sets, daily range): BP systolic 95–108; BP diastolic 56–72; PULSE 83–100; RESP 18–20; TEMP 36–36.6; O2SAT 94–98
[2022-11-19] MEDS: oxyCODONE HCL (*CRX) 5 MG TAB IR PO ×5 (00:53→20:05)
[2022-11-19 04:49] LABS: Basophils Absolute Auto 0.1 K/mm3 (0.0-0.1); Basophils Percent Auto 0.7 % (0.2-1.2); Eosinophils Absolute Auto 0.3 K/mm3 (0-0.3); Eosinophils Percent Auto 3.4 % (0-4.4); Hematocrit 40.3 % (42.0-52.0); Hemoglobin 12.8 g/dL (14.0-18.0); Immature Granulocyte Absolute 0.02 K/mm3 (0.00-0.031); Immature Granulocyte Percent A 0.3 % (0-0.5); Lymphocytes Absolute Auto 1.21 K/mm3 (0.9-3.2); Lymphocytes Percent Auto 15.8 % (18.3-44.2); Mean Corpuscular HGB Conc 31.8 g/dl (32-36); Mean Corpuscular Hemoglobin 29.8 pg (26-34); Mean Corpuscular Volume 93.7 fl (80-100); Monocytes Absolute Auto 0.7 K/mm3 (0.1-0.6); Monocytes Percent Auto 8.6 % (2.6-8.5); Neutrophils Absolute Auto 5.4 K/mm3 (1.3-6.7); Neutrophils Percent Auto 71.2 % (45.5-73.1); Platelet Count Result 168 k/mm3 (150-375); Red Cell Distribution Width 15.3 % (11.5-14.5); White Blood Count 7.6 K/mm3 (4.5-10.0)
[2022-11-19 05:00] LABS: Alanine Aminotransferase 42 U/L (6-50); Albumin Level 3.7 g/dL (3.5-5.1); Alkaline Phosphatase 103 U/L (38-126); Anion Gap 8 mmol/L (8-16); Aspartate Amino Transferase 26 U/L (17-59); Bilirubin,Total 0.5 mg/dL (0.2-1.3); Blood Urea Nitrogen 20 mg/dL (9-20); Calcium 8.2 mg/dL (8.4-10.2); Carbon Dioxide 32 mmol/L (22-30); Chloride 97 mmol/L (98-107); Estimated CRCL calculation 85 ml/min; Estimated Glomerular Filt Rate > 60; Glucose 131 mg/dL (65-110); Magnesium 2.1 mg/dL (1.6-2.3); Sodium 137 mmol/L (137-145)
[2022-11-19 08:27] LABS: Glucose Point of Care 134 mg/dl (65-105)
[2022-11-19] MEDS: POTASSIUM CHLORIDE 20 MEQ TABLET.ER 40 MEQ PO ×2 (09:48→16:54)
[2022-11-19] MEDS: CYANOCOBALAMIN 1,000 MCG TABLET 1000 MCG PO (09:49)
[2022-11-19] MEDS: METOPROLOL TARTRATE 50 MG TAB 100 MG PO ×2 (09:49→20:05)
[2022-11-19] MEDS: EMPAGLIFLOZIN 25 MG TABLET PO (09:50)
[2022-11-19] MEDS: GABAPENTIN 300 MG CAPSULE BY MOUTH ×3 (09:50→16:53)
[2022-11-19] MEDS: methiMAzole 10 MG TAB 20 MG PO (09:50)
[2022-11-19] MEDS: APIXABAN 5 MG TABLET PO ×2 (09:50→16:53)
[2022-11-19] MEDS: DIGOXIN 250 MCG TABLET PO (09:50)
[2022-11-19] MEDS: DULoxetine HCL 60 MG CAPSULE.DR PO (09:50)
[2022-11-19] MEDS: BUMETANIDE INJ 2.5 MG/10 ML VIAL 2 MG IV PUSH (09:51)
--- NOTE | 2022-11-19 10:52 | PM.PNCARD ---
Progress Note: A&P Assessment and Plan (1) Acute on chronic combined systolic and diastolic CHF (congestive heart failure): Code(s): I50.43 - Acute on chronic combined systolic (congestive) and diastolic (congestive) heart failure Status: Acute Assessment and Plan: Patient is readmitted with another episode of acute on chronic CHF, failing outpatient therapy with increasing diuretics. Probably aggravated by his underlying atrial fibrillation , RVR. Also he was not discharged on metolazone last admission. It was resumed on a FU visit a few days [employer]. Continues to diurese and improved. --transition to home dose of Bumex, Bumex 2 mg b.i.d. orally --resume metolazone mg daily for now (perhaps as OPT reduce to 3 times a week) --Daily BMP --Control a fib --probably discharge Wednesday (2) Atrial fibrillation with RVR: Code(s): I48.91 - Unspecified atrial fibrillation Status: Acute Assessment and Plan: A fib,, which appears permanent, is difficult to control despite high dose metoprolol. Improved after treatment of CHF and amiodarone bolus. Likely will have more trouble with AFib RVR with additional medication, and digoxin was added with improvement of heart rate control. Normal renal function. Other options include p.o. amiodarone or resuming diltiazem if his LV function improves. --Cont Eliquis --continue digoxin; will need outpatient follow-up for digoxin levels etc.. --Perhaps resume the diltiazem as OPT if/when LV fxn and BP improve (3) Cardiomyopathy: Code(s): I42.9 - Cardiomyopathy, unspecified Status: Acute Assessment and Plan: CArdiomyopathy with mid-range EF, 40-45% in October 2022, which declined from his echo of March 2021 when his EF was 55-60. Perhaps due to his AFib RVR and potentially reversible. -- Unable to add losartan or Entresto at this time due to soft blood pressure --Cont Jardiance, BB. (4) Mitral valve disease: Code(s): I05.9 - Rheumatic mitral valve disease, unspecified Status: Acute Assessment and Plan: H/O MV repair with only mild residual regurgitation. (5) Coronary artery disease: Onset Date: ~2001 Code(s): I25.10 - Atherosclerotic heart disease of [place] coronary artery without angina pectoris Status: Acute Assessment and Plan: CAD and h/o CABG, stable. (6) Chronic obstructive pulmonary disease, unspecified: Qualifiers: COPD type: unspecified COPD Qualified Code(s): J44.9 - Chronic obstructive pulmonary disease, unspecified Code(s): J44.9 - Chronic obstructive pulmonary disease, unspecified Status: Chronic Assessment and Plan: H/O COPD and HERNAN. Subjective Date/time seen: 11/19/22 10:52 Interval history: Follow-up for acute on chronic systolic and diastolic heart failure, AFib RVR. Mr Peters has a history of diastolic heart failure, CAD & CABG, mitral valve repair about 10 years ago, permanent atrial fibrillation, COPD, HERNAN, hypertension and diabetes. EF 40-45%. Diltiazem recently discontinued due to LV dysfxn, metolazone DC'd and pt readmitted w/ a fib RVR and CHF. 11/17/2022: changed diuretics to IV and amiodarone bolus. Date of service 11/18/2022: Feels better, less short of breath and no palpitations. Some GARCIA persists. Systolic BP runs 91-131 mmHg. Diuresed 1100 cc yesterday. On room air. Renal function stable. Amiodarone bolus yesterday, now Tele = a fib, heart rate generally in the 90s. Pt w/ chronic neuropathic pain, asking about seeing a Chronic internal corrosion specialist as OPT. Started p.o. digoxin to help with heart rate control. Date of service 11/19/2022: Still w/ GARCIA but overall breathing is better. Diuresed 1800 cc yesterday. Systolic blood pressure 91-104 mmHg. Renal function stable. Remains on room air, CPAP at night. Tele: a fib HR 80-90's. Review of Systems Review of Systems: Still some GARCIA and e
[2022-11-19 12:51] LABS: Glucose Point of Care 177 mg/dl (65-105)
--- NOTE | 2022-11-19 13:47 | PM.IMPN ---
Progress Note: A&P Assessment and Plan (1) Atrial fibrillation with RVR: Code(s): I48.91 - Unspecified atrial fibrillation Status: Acute Assessment and Plan: Found to have AFib/RVR. Amiodarone stopped. Digoxin added 11/18 Rate controlled now. Continue Eliquis. Continue Digoxin and metoprolol. Appreciate cardiology input (2) CHF exacerbation: Code(s): I50.9 - Heart failure, unspecified Status: Acute Assessment and Plan: Echo 10/26/22: Mild LV enlargement with mild global systolic dysfunction estimated EF 40-45%, diastolic function is grade I diastolic dysfunction, dilated RV with RV systolic dysfunction, biatrial dilation and previous annuloplasty ring mitral valve with mild MR. Acute on chronic systolic and diastolic CHF exacerbation. May have right sided failure as well with dilated RV with RV systolic dysfunction. He was not sent home with metolazone last admission but this was resumed in the clinic Diuresing well with IV Bumex Strict I's/O's, daily weights. Monitor Cr. Changed to oral Bumex today and metolazone resumed (daily now but will change back to M-W-F at some point). Discussed with Cardiology (3) Hyperthyroidism: Code(s): E05.90 - Thyrotoxicosis, unspecified without thyrotoxic crisis or storm Status: Acute Assessment and Plan: TSH normal. Continue with Tapazole (4) Essential hypertension: Code(s): I10 - Essential (primary) hypertension Status: Acute Assessment and Plan: Patient's blood pressure was reviewed on 11/19 Blood pressure remains well controlled and even soft at times. Will continue current medications. (5) Type 2 diabetes mellitus: Qualifiers: Diabetes mellitus complication status: with other specified complication Diabetes mellitus terminal operator insulin use: with shelter use Qualified Code(s): E11.69 - Type 2 diabetes mellitus with other specified complication; Z79.4 - terminal operations supervisor (current) use of insulin Code(s): E11.9 - Type 2 diabetes mellitus without complications Status: Acute Assessment and Plan: A1c 7.8. The patient's blood glucose was reviewed on 11/19 Glucose remains well controlled. Continue AccuCheks covering with sliding scale. Hypoglycemia protocol available as needed. Continue current medications. (6) HERNAN (obstructive sleep apnea): Code(s): G47.33 - Obstructive sleep apnea (adult) (pediatric) Status: Acute Assessment and Plan: Stable. Patient compliant with treatment. Patient is on a trilogy at home. Continue here. (7) COPD (chronic obstructive pulmonary disease): Code(s): J44.9 - Chronic obstructive pulmonary disease, unspecified Status: Acute Assessment and Plan: No wheezing. Continue with home nebulizers (8) Chronic back pain: Code(s): M54.9 - Dorsalgia, unspecified; G89.29 - Other chronic pain Status: Acute Assessment and Plan: Stable. Cymbalta increased to 60 mg daily. Continue home medications. Increase activity as toelrated. (9) Chronic anemia: Code(s): D64.9 - Anemia, unspecified Status: Acute Assessment and Plan: Mild normocytic anemia with Hgb running 12-13 range and stable. B12 level low end of normal at 247 on 10/28/22. Continue B12 replacement. (10) Depression with anxiety: Code(s): F41.8 - Other specified anxiety disorders Status: Chronic Assessment and Plan: Mood stable. Cymbalta increased. Continue with current dose of Cymbalta Plan DVT prophylaxis with Eliquis GI prophylaxis not indicated Code status full code Subjective Date/time seen: 11/19/22 13:47 Interval history: 62-year-old male with history of AFib, diabetes, heart failure is presenting with shortness of breath, chest pain and lower extremity edema, found to have AFib with RVR. He is feeling 'much better'. Voiding well. No CP or SOB. Eating better. St
[2022-11-19] MEDS: BUMETANIDE 1 MG TABLET 2 MG PO (16:53)
[2022-11-19 17:09] LABS: Glucose Point of Care 151 mg/dl (65-105)
[2022-11-19] MEDS: ATORVASTATIN 40 MG TABLET PO (20:05)
[2022-11-19 20:28] LABS: Glucose Point of Care 165 mg/dl (65-105)
--- NOTE | 2022-11-19 21:33 | PC.NURSE ---
Patient being transferred to [facility] [place] via wheelchair. Report called to Lauryn ZAMBRANO on [facility]. Patient in stable condition and all belongings to be sent with patient.
--- NOTE | 2022-11-19 21:50 | PC.NURSE ---
2140 Pt transferred from [facility]-. Pt arrived in wheelchair with belongings and hosptial cpap.
[2022-11-20] MEDS: oxyCODONE HCL (*CRX) 5 MG TAB IR PO ×3 (00:26→09:49)
[2022-11-20 05:02] LABS: Basophils Absolute Auto 0.1 K/mm3 (0.0-0.1); Basophils Percent Auto 0.7 % (0.2-1.2); Eosinophils Absolute Auto 0.3 K/mm3 (0-0.3); Eosinophils Percent Auto 4.2 % (0-4.4); Hematocrit 40.5 % (42.0-52.0); Hemoglobin 12.9 g/dL (14.0-18.0); Immature Granulocyte Absolute 0.03 K/mm3 (0.00-0.031); Immature Granulocyte Percent A 0.4 % (0-0.5); Lymphocytes Absolute Auto 1.27 K/mm3 (0.9-3.2); Lymphocytes Percent Auto 15.5 % (18.3-44.2); Mean Corpuscular HGB Conc 31.9 g/dl (32-36); Mean Corpuscular Hemoglobin 29.8 pg (26-34); Mean Corpuscular Volume 93.5 fl (80-100); Mean Platelet Volume 9.5 fl (7.4-10.4); Monocytes Absolute Auto 0.8 K/mm3 (0.1-0.6); Monocytes Percent Auto 9.8 % (2.6-8.5); Neutrophils Absolute Auto 5.7 K/mm3 (1.3-6.7); Neutrophils Percent Auto 69.4 % (45.5-73.1); Platelet Count Result 194 k/mm3 (150-375); Red Blood Count 4.33 M/mm3 (4.6-6.20); Red Cell Distribution Width 14.9 % (11.5-14.5); White Blood Count 8.2 K/mm3 (4.5-10.0)
[2022-11-20 05:13] LABS: Alanine Aminotransferase 38 U/L (6-50); Albumin Level 3.8 g/dL (3.5-5.1); Alkaline Phosphatase 110 U/L (38-126); Anion Gap 5 mmol/L (8-16); Aspartate Amino Transferase 23 U/L (17-59); Bilirubin,Total 0.7 mg/dL (0.2-1.3); Blood Urea Nitrogen 20 mg/dL (9-20); Carbon Dioxide 33 mmol/L (22-30); Chloride 95 mmol/L (98-107); Estimated CRCL calculation 94 ml/min; Estimated Glomerular Filt Rate > 60; Glucose 128 mg/dL (65-110); Potassium 3.9 mmol/L (3.4-5.0); Sodium 133 mmol/L (137-145)
[2022-11-20 05:17] VITALS: BP 110/71; PULSE 82; RESP 16; TEMP 36.6; O2SAT 99
[2022-11-20] MEDS: BUMETANIDE 1 MG TABLET 2 MG PO (08:13)
[2022-11-20] MEDS: GABAPENTIN 300 MG CAPSULE BY MOUTH ×2 (08:13→12:29)
[2022-11-20] MEDS: DIGOXIN 250 MCG TABLET PO (08:14)
[2022-11-20] MEDS: methiMAzole 10 MG TAB 20 MG PO (08:14)
[2022-11-20] MEDS: POTASSIUM CHLORIDE 20 MEQ TABLET.ER 40 MEQ PO (08:14)
[2022-11-20] MEDS: METOPROLOL TARTRATE 50 MG TAB 100 MG PO (08:14)
[2022-11-20] MEDS: CYANOCOBALAMIN 1,000 MCG TABLET 1000 MCG PO (08:15)
[2022-11-20] MEDS: metOLazone 5 MG TABLET PO (08:15)
[2022-11-20] MEDS: DULoxetine HCL 60 MG CAPSULE.DR PO (08:15)
[2022-11-20] MEDS: APIXABAN 5 MG TABLET PO (08:15)
[2022-11-20] MEDS: EMPAGLIFLOZIN 25 MG TABLET PO (08:15)
[2022-11-20] MEDS: DOCUSATE SODIUM 100 MG CAPSULE PO (08:15)
[2022-11-20 08:40] LABS: Glucose Point of Care 127 mg/dl (65-105)
--- NOTE | 2022-11-20 08:44 | PM.PNCARD ---
Progress Note: A&P Assessment and Plan (1) Acute on chronic combined systolic and diastolic CHF (congestive heart failure): Code(s): I50.43 - Acute on chronic combined systolic (congestive) and diastolic (congestive) heart failure Status: Acute Assessment and Plan: Patient is readmitted with another episode of acute on chronic CHF, failing outpatient therapy with increasing diuretics. Probably aggravated by his underlying atrial fibrillation , RVR. Also he was not discharged on metolazone last admission. It was resumed on a FU visit a few days [employer]. Continues to diurese and improved. --transition to home dose of Bumex, Bumex 2 mg b.i.d. orally --resume metolazone mg daily for now (perhaps as OPT reduce to 3 times a week) --Afib rate controlled --OK for discharge today --Close follow up in our office (2) Atrial fibrillation with RVR: Code(s): I48.91 - Unspecified atrial fibrillation Status: Acute Assessment and Plan: A fib,, which appears permanent, is difficult to control despite high dose metoprolol. Improved after treatment of CHF and amiodarone bolus. Likely will have more trouble with AFib RVR with additional medication, and digoxin was added with improvement of heart rate control. Normal renal function. Other options include p.o. amiodarone or resuming diltiazem if his LV function improves. --Cont Eliquis --continue digoxin; will need outpatient follow-up for digoxin levels etc.. (3) Cardiomyopathy: Code(s): I42.9 - Cardiomyopathy, unspecified Status: Acute Assessment and Plan: CArdiomyopathy with mid-range EF, 40-45% in October 2022, which declined from his echo of March 2021 when his EF was 55-60. Perhaps due to his AFib RVR and potentially reversible. -- Unable to add losartan or Entresto at this time due to soft blood pressure --Cont Jardiance, BB. (4) Mitral valve disease: Code(s): I05.9 - Rheumatic mitral valve disease, unspecified Status: Acute Assessment and Plan: H/O MV repair with only mild residual regurgitation. (5) Coronary artery disease: Onset Date: ~2001 Code(s): I25.10 - Atherosclerotic heart disease of [place] coronary artery without angina pectoris Status: Acute Assessment and Plan: CAD and h/o CABG, stable. (6) Chronic obstructive pulmonary disease, unspecified: Qualifiers: COPD type: unspecified COPD Qualified Code(s): J44.9 - Chronic obstructive pulmonary disease, unspecified Code(s): J44.9 - Chronic obstructive pulmonary disease, unspecified Status: Chronic Assessment and Plan: H/O COPD and HERNAN. Subjective Date/time seen: 11/20/22 08:44 Interval history: Follow-up for acute on chronic systolic and diastolic heart failure, AFib RVR. Mr Peters has a history of diastolic heart failure, CAD & CABG, mitral valve repair about 10 years ago, permanent atrial fibrillation, COPD, HERNAN, hypertension and diabetes. EF 40-45%. Diltiazem recently discontinued due to LV dysfxn, metolazone DC'd and pt readmitted w/ a fib RVR and CHF. 11/17/2022: changed diuretics to IV and amiodarone bolus. Date of service 11/18/2022: Feels better, less short of breath and no palpitations. Some GARCIA persists. Systolic BP runs 91-131 mmHg. Diuresed 1100 cc yesterday. On room air. Renal function stable. Amiodarone bolus yesterday, now Tele = a fib, heart rate generally in the 90s. Pt w/ chronic neuropathic pain, asking about seeing a Chronic media marketing specialist as OPT. Started p.o. digoxin to help with heart rate control. Date of service 11/19/2022: Still w/ GARCIA but overall breathing is better. Diuresed 1800 cc yesterday. Systolic blood pressure 91-104 mmHg. Renal function stable. Remains on room air, CPAP at night. Tele: a fib HR 80-90's. Date of service 11/20/2022: Breathing improved today. Does not have any complaints at the time of my visit.
--- NOTE | 2022-11-20 12:18 | PM.DS ---
DS: Admitting Diagnosis Discharge Date 11/20/22 Admitting Diagnosis Atrial fibrillation with RVR, congestive heart failure exacerbation DS: Discharge Diagnosis Discharge Diagnosis (1) Acute on chronic combined systolic and diastolic CHF (congestive heart failure): Code(s): I50.43 - Acute on chronic combined systolic (congestive) and diastolic (congestive) heart failure Status: Acute Assessment and Plan: Continue Bumex 2 mg b.i.d.. Giving metolazone 5 mg 3 times a week. Was diuresed in the hospital back to his baseline. Cardiomyopathy EF 40-45% October 2022, recommendation for Jardiance and beta-jose. (2) Atrial fibrillation with RVR: Code(s): I48.91 - Unspecified atrial fibrillation Status: Acute Assessment and Plan: Continue Eliquis for anticoagulation 5 mg b.i.d.. Rate control with metoprolol 100 mg b.i.d.. DS: Summary Hospital Course Reason for hospitalization: Heart failure exacerbation and atrial fibrillation with RVR Hospital Course: Patient is a 62-year-old male past with history of atrial fibrillation, type 2 diabetes, COPD, CAD, heart failure with reduced ejection fraction presents to ED with complaints of dyspnea on 11/16/2022. Patient was found to be in AFib with RVR treated with amiodarone and transition to digoxin 250 mcg daily and metoprolol 100 mg b.i.d.. Diltiazem has been stopped. Patient to follow-up with cardiology for digoxin levels. For fluid overload patient was treated with IV diuresis with IV Bumex and will be discharged on Bumex 2 mg p.o. b.i.d., metolazone 3 times a week. Patient diuresed well and will be discharged with his new regimen, breathing comfortably on room air, ambulating well. Patient's Cymbalta has been increased from 30 mg to 60 mg for his anxiety his mood is better. At time of discharge patient's labs stable, vitals stable, patient is stable for discharge home. Patient follow-up with Cardiology PCP. Patient understands agrees with plan. Status at Discharge Cognitive/behavioral status at discharge: Stable Time Spent with Patient Time attestation: Total time spent providing and/or coordinating discharge services: 40 min Exam Narrative: - GENERAL: Pleasant morbidly obese male no acute distress. Well-nourished. - EYES: EOMI. Anicteric. - HENT: Moist mucous membranes. - LUNGS: Clear to auscultation bilaterally, no wheezing, rhonchi, or rales. - CARDIOVASCULAR: Regular rate and rhythm. No murmur. No JVD. - ABDOMEN: Soft, non-tender and non-distended. No palpable masses. - EXTREMITIES: wearing compression stockings.. Peripheral pulses 2+. Non-tender. - NEUROLOGIC: No focal neurological deficits. CN II-XII grossly intact. - PSYCHIATRIC: Awake, Alert and oriented x 3. Appropriate mood and affect. - SKIN: No rashes or lesions. Warm. - LYMPH: No cervical lymphadenopathy. DS: Data Data Completed and Pending Labs on day of discharge: Labs from last 24 hours 11/20/22 11/20/22 11/19/22 08:33 04:18 20:17 WBC 8.2 RBC 4.33 L Hgb 12.9 L Hct 40.5 L MCV 93.5 MCH 29.8 MCHC 31.9 L RDW 14.9 H Plt Count 194 MPV 9.5 Immature Gran % (Auto) 0.4 Neut % (Auto) 69.4 Lymph % (Auto) 15.5 L [place] % (Auto) 9.8 H Eos % (Auto) 4.2 Baso % (Auto) 0.7 Lymph # (Auto) 1.27 [place] # (Auto) 0.8 H Eos # (Auto) 0.3 Baso # (Auto) 0.1 Abs Immat Gran (auto) 0.03 Absolute Neuts (auto) 5.7 Absolute Nucleated RBC 0.0 Nucleated RBC % 0.0 Sodium 133 L Potassium 3.9 Chloride 95 L Carbon Dioxide 33 H Anion Gap 5 L BUN 20 Creatinine 0.90 Estim Creat Clear Calc 94 Estimated GFR > 60 Glucose 128 H POC Capillary Glucose 127 H 165 H Calcium 8.0 L Total Bilirubin 0.7 AST 23 ALT 38 Alkaline Phosphatase 110 Total Protein 7.0 Albumin 3.8 11/19/22 11/19/22 16:34 12:02 WBC RBC Hgb Hct MCV MCH MCHC RDW Plt Count MPV Im
[2022-11-20 12:20] LABS: Glucose Point of Care 165 mg/dl (65-105)
== END 2022-11-20 14:41 | disposition home or self-care (01) | DRG 291 ==
LOC: ANHED 10:45 → ANHIMU 15:05 → ANH2MED 11-19 21:48
PROVIDERS: Nurse Practitioner; Student in an Organized Health Care Education/Training Program; Admitting Provider Internal Medicine; Emergency Provider Preventive Medicine Aerospace Medicine; PCP Nurse Practitioner Family; Visit Provider Student in an Organized Health Care Education/Training Program
DX: I11.0 Hypertensive heart disease with heart failure (principal); I50.43 Acute on chronic combined systolic (congestive) and diastolic (congestive) heart failure; J96.11 Chronic respiratory failure with hypoxia; I48.21 Permanent atrial fibrillation; I50.9 Heart failure, unspecified; I25.10 Atherosclerotic heart disease of native coronary artery without angina pectoris; I42.9 Cardiomyopathy, unspecified; I34.0 Nonrheumatic mitral (valve) insufficiency; I69.320 Aphasia following cerebral infarction; I95.9 Hypotension, unspecified; J44.9 Chronic obstructive pulmonary disease, unspecified; E78.5 Hyperlipidemia, unspecified; E05.90 Thyrotoxicosis, unspecified without thyrotoxic crisis or storm; E11.9 Type 2 diabetes mellitus without complications; M19.90 Unspecified osteoarthritis, unspecified site; M54.9 Dorsalgia, unspecified; G89.29 Other chronic pain; G47.33 Obstructive sleep apnea (adult) (pediatric); F41.9 Anxiety disorder, unspecified; F32.A Depression, unspecified; Z99.81 Dependence on supplemental oxygen; Z79.01 Long term (current) use of anticoagulants; Z95.1 Presence of aortocoronary bypass graft; Z87.891 Personal history of nicotine dependence; Z79.85 Long-term (current) use of injectable non-insulin antidiabetic drugs
CPT/HCPCS: 36415; 71046; 80053; 82948; 83036; 83605; 83735; 83880; 84443; 84484; 85025; 85610; 93005; 96365; 96367; 96376; 99212; 99285; A9270; G0378; G0463; J0131; J0282; J3420

== ENCOUNTER 2022-12-29 06:33 | Outpatient (CLI) | payer MEDICARE, MEDICAID, SELFPAY ==
--- NOTE | ~2022-12-29 | MR_ITS ---
MRI of the lumbar spine Clinical History: Radiculopathy Technique: Axial T2-weighted images, and sagittal T1-weighted, T2-weighted, and T2 fat-sat images wer e acquired. Findings: There is no fracture or subluxation of lumbar spine. Vertebral bodies maintain normal heigh t and alignment. No bone marrow signal abnormality seen. At L1-L2, L2-L3, L3-L4, there is no significant disc bulge or herniation. There are mild to moderate facet joint degenerative changes at these levels. No spinal canal stenosis or neural foraminal narrow ing at these levels. At L4-L5, there is minimal disc bulge with moderate facet arthropathy. No central canal stenosis or s ignificant neural foraminal narrowing. At L5-S1, there is diffuse disc bulge with probable superimposed protrusion/extrusion at the left par acentral to left foraminal region. There is left lateral recess stenosis with severe left neural fora hermelinda narrowing. There is also moderate to severe right neural foraminal narrowing. Possible focal im pingement of descending left-sided S1-S2 level nerve root. Paravertebral soft tissues are unremarkable. Impression: Disc bulge with probable superimposed left paracentral to left foraminal disc protrusion/extrusion at L5-S1. Associated left lateral recess stenosis with bilateral neural foraminal narrowing as well as possible focal impingement of descending left-sided S1-S2 level nerve root. Reviewed, dictated and finalized at [facility]. Impression: Disc bulge with probable superimposed left paracentral to left foraminal disc p rotrusion/extrusion at L5-S1. Associated left lateral recess stenosis with bila teral neural foraminal narrowing as well as possible focal impingement of desce nding left-sided S1-S2 level nerve root.
== END 2022-12-29 06:34 | disposition home or self-care (01) ==
PROVIDERS: PCP Family Medicine Sports Medicine; Visit Provider Physical Medicine & Rehabilitation
DX: M51.17 Intervertebral disc disorders with radiculopathy, lumbosacral region (principal)
CPT/HCPCS: 72148

== ENCOUNTER 2023-01-07 08:19 | Outpatient (CLI) | payer MEDICARE, MEDICAID, SELFPAY ==
[2023-01-07 09:32] LABS: Anion Gap 3 mmol/L (8-16); Blood Urea Nitrogen 8 mg/dL (9-20); Calcium 8.6 mg/dL (8.4-10.2); Carbon Dioxide 35 mmol/L (22-30); Chloride 97 mmol/L (98-107); Estimated Glomerular Filt Rate > 60; Glucose 122 mg/dL (65-110); Potassium 4.2 mmol/L (3.4-5.0); Sodium 135 mmol/L (137-145)
[2023-01-07 09:33] LABS: Digoxin 0.8 ng/mL (0.8-2.0)
== END 2023-01-07 08:20 | disposition home or self-care (01) ==
LOC: ANHLAB 08:22
PROVIDERS: PCP Family Medicine Sports Medicine; Visit Provider Internal Medicine Cardiovascular Disease
DX: I50.42 Chronic combined systolic (congestive) and diastolic (congestive) heart failure (principal); I48.19 Other persistent atrial fibrillation; Z51.81 Encounter for therapeutic drug level monitoring; Z79.899 Other long term (current) drug therapy
CPT/HCPCS: 36415; 80048; 80162

== ENCOUNTER 2023-01-17 01:51 | Observation (INO) | payer MEDICARE, MEDICAID, SELFPAY ==
[2023-01-17] VITALS (35 sets, daily range): BP systolic 94–122; BP diastolic 57–108; PULSE 60–93; RESP 10–22; TEMP 36.4–36.8; O2SAT 92–100; BMI 36.6
--- NOTE | ~2023-01-17 | US_ITS ---
Procedure: Duplex Doppler examination of the bilateral carotids. Indication: Syncope Technique: Real time, color-flow and pulse wave Doppler examination of the bilateral carotids was performed. Findings: Sampson scale ultrasonography of the right neck demonstrated no significant plaque. There was demonstrat ion of normal color-flow and Doppler waveforms within the right common, internal and external carotid arteries. The peak systolic velocities in the right common, internal and external carotid arteries w ere demonstrated to be 91 cm/sec, 53 cm/sec and 76 cm/sec respectively. The right ICA/CCA ratio was 0 .6.The proximal right internal carotid artery demonstrates 0% stenosis relative to the normal distal artery lumen diameter. Sampson scale sonography of the left neck demonstrated no significant plaque. There was demonstration of normal color-flow and wave forms within the left common, internal and external carotid arteries. The peak systolic velocities in the left common, internal and external carotid arteries were demonstrate d to be 92cm/sec, 52 cm/sec and 102 cm/sec respectively. The left ICA/CCA ratio was 0.6. The proximal left internal carotid artery demonstrates 0% stenosis relative to the normal distal artery lumen maximiliano meter. There was antegrade flow demonstrated in the bilateral vertebral arteries. Impression: No hemodynamically significant stenosis of the bilateral internal carotid arteries. Antegrade flow in the bilateral vertebral arteries. Note: The methodology used is an indirect measurement validated against a direct method (such as the NASCET criteria) that compares diameters at the stenosis to the distal ICA. Reviewed, dictated and finalized at location . Impression: No hemodynamically significant stenosis of the bilateral internal carotid arter ies. Antegrade flow in the bilateral vertebral arteries. Note: The methodology used is an indirect measurement validated against a direct meth od (such as the NASCET criteria) that compares diameters at the stenosis to the distal ICA.
--- NOTE | ~2023-01-17 | CT_ITS ---
EXAMINATION: CT brain wo con DATE: 01/17/2023 02:46 INDICATION: Syncope. TECHNIQUE: Computed tomography (CT) of the head was performed without intravenous contrast. The mA wa s adjusted according to patient size. Iterative reconstruction technique was employed. The dose-lengt h product was 681.00 mGy-cm. COMPARISON: Head CT 10/12/22 FINDINGS: Again seen is a 3.6 x 2.4 cm arachnoid cyst anterior to left temporal lobe. Again seen is a n old infarct involving left temporal parietal region and left insula. There is no intracranial hemor rhage, acute infarction, or abnormal intracranial mass lesion. The ventricles are normal in size. The re is mild mucosal thickening in the ethmoid sinuses. The orbits are normal. The mastoid air cells ar e normal. IMPRESSION: 1. Old infarct involving left temporal parietal region and left insula. Reviewed, dictated and finalized at location E.
--- NOTE | ~2023-01-17 | XR_ITS ---
EXAMINATION: XR chest 1V portable DATE: 01/17/2023 02:35 INDICATION: Chest pain. Syncope. TECHNIQUE: A single frontal view of the chest was obtained. COMPARISON: Chest 2 views 11/16/2022, chest CT 03/27/2021 FINDINGS: Calcified pulmonary nodules and calcified hilar and mediastinal lymph nodes are consistent with old granulomatous disease. No pleural effusion or pneumothorax. Cardiomegaly is noted. Median st ernotomy wires are noted. IMPRESSION: 1. Cardiomegaly. Reviewed, dictated and finalized at location A. IMPRESSION: 1. Cardiomegaly.
--- NOTE | 2023-01-17 01:59 | ECG_ITS ---
Measurements Intervals [place] Rate: 79 P: [place]: 0 QRS: 110 QRSD: 102 T: -75 QT: 380 QTc: 438 Interpretive Statements ATRIAL FIBRILLATION RIGHT AXIS DEVIATION ST-T WAVE ABNORMALITY IN ANTEROLAT/INF LEADS- CONSIDER ISCHEMIA BASELINE ARTIFACT- I, II, III, AVR, AVL, AVF, V1 ABNORMAL ECG COMPARED TO ECG 11/16/2022 10:45:25 HEART RATE HAS DECREASED ST-T WAVE ABNORMALITY NOW PRESENT Electronically Signed On 01-17-2023 18:43:22 CDT by Charli Griffiths D.O.
--- NOTE | 2023-01-17 02:40 | PC.NURSE ---
This RN received pt from EMS and was doing he initial assessment along with other assessments for pt. This RN was asking questions to the pt. The pt responded with Stop speaking so fast, I cannot understand you in a raised voice. This RN apologized and spoke slower and louder for the patient to understand. Pt then stated why are you yelling at me, are you stupid? I am slow and cannot understand you . This RN rephrased her question and spoke slower for the patient to understand. This RN then was filling out an assessment on the patient condition. Pt stated are you stupid? There is no way you are a nurse or educated, you are too young. This RN did not respond and continued to do assessment. Pt then stated, guess you can't hear me, let me ask you a question.. what is it called when I have mitral regurgitation this RN stated she was not sure. Pt then proceeded to yell at this RN, You don't know what that is? Clearly you are not educated enough to be a nurse . This RN explained to pt that they will not speak to this RN that way and that behavior will not be tolerated. The patient then started screaming at this RN Get out of my room, get out of my fucking room, you are hurting me, you are not to be my nurse. This RN explained to pt that I was standing at the computer and not touching the patient. Pt continued to yell at this RN. This RN exited the room. Charge nurse made aware.
[2023-01-17 03:05] LABS: Basophils Absolute Auto 0.1 K/mm3 (0.0-0.1); Basophils Percent Auto 0.7 % (0.2-1.2); Eosinophils Absolute Auto 0.3 K/mm3 (0-0.3); Eosinophils Percent Auto 2.5 % (0-4.4); Hematocrit 51.1 % (42.0-52.0); Hemoglobin 17.1 g/dL (14.0-18.0); Immature Granulocyte Absolute 0.03 K/mm3 (0.00-0.031); Immature Granulocyte Percent A 0.3 % (0-0.5); Lymphocytes Absolute Auto 1.22 K/mm3 (0.9-3.2); Lymphocytes Percent Auto 10.5 % (18.3-44.2); Mean Corpuscular HGB Conc 33.5 g/dl (32-36); Mean Corpuscular Hemoglobin 29.5 pg (26-34); Mean Corpuscular Volume 88.3 fl (80-100); Mean Platelet Volume 9.2 fl (7.4-10.4); Monocytes Absolute Auto 0.9 K/mm3 (0.1-0.6); Monocytes Percent Auto 7.8 % (2.6-8.5); Neutrophils Absolute Auto 9.1 K/mm3 (1.3-6.7); Neutrophils Percent Auto 78.2 % (45.5-73.1); Platelet Count Result 280 k/mm3 (150-375); Red Blood Count 5.79 M/mm3 (4.6-6.20); Red Cell Distribution Width 14.2 % (11.5-14.5); White Blood Count 11.7 K/mm3 (4.5-10.0)
[2023-01-17] MEDS: ASPIRIN 81 MG CHEWABLE TABLET 324 MG PO ×2 (03:15→09:24)
[2023-01-17 03:19] LABS: INR 1.2; Prothrombin Time 16.2 Seconds (11.1-14.7)
--- NOTE | 2023-01-17 04:27 | PC.NURSE ---
Patient's brother is Alton Peters his phone number is [phone].
[2023-01-17 04:30] LABS: Alanine Aminotransferase 31 U/L (6-50); Albumin Level 4.7 g/dL (3.5-5.1); Alkaline Phosphatase 150 U/L (38-126); Aspartate Amino Transferase 25 U/L (17-59); Blood Urea Nitrogen 39 mg/dL (9-20); Calcium 9.4 mg/dL (8.4-10.2); Carbon Dioxide > 40 mmol/L (22-30); Chloride 81 mmol/L (98-107); Estimated CRCL calculation 61 ml/min; Estimated Glomerular Filt Rate 51; Glucose 182 mg/dL (65-110); Lipase 60 U/L (23-300); Potassium 2.5 mmol/L (3.4-5.0); Sodium 133 mmol/L (137-145)
[2023-01-17 04:34] LABS: NT Pro B Type Natriuretic Pept 693 pg/mL (19.9-100); Troponin I 0.017 ng/mL (0.000-0.034)
--- NOTE | 2023-01-17 04:43 | ED.GENADULT ---
HPI - General Adult General Chief complaint: Chest Pain Stated complaint: CHEST PAIN Time Seen by Provider: 01/17/23 02:14 History of Present Illness HPI narrative: Patient 62-year-old gentleman who presents the emergency department with chief complaint of chest pain. The patient reports he has prior history of cardiac disease and reports that he started having an episode of chest discomfort this evening the patient reports it felt similar to whenever he has had issues before in the past he also reports that he started feeling very lightheaded and had several syncopal episodes at home. The patient states that he is not having any pain anywhere patient reports that his chest pain is essentially almost resolved at this point. Related Data Home Medications Medication Instructions Recorded Confirmed metoprolol tartrate 100 mg tablet 100 mg PO BID 10/27/22 11/16/22 gabapentin 300 mg capsule 300 mg TID 11/16/22 11/16/22 Allergies Allergy/AdvReac Type Severity Reaction Status Date / Time morphine AdvReac Unknown Increased Verified 11/16/22 09:39 HR Review of Systems Review of Systems: A 10 system review of systems was completed on the patient and is negative except for what is stated in the HPI. Nursing and ancillary documentation was reviewed. [facility] Past Medical History Medical History Cardiomyopathy Cerebrovascular accident (~05/2018) With global aphasia, much improved with mild expressive aphasia. Chronic anemia Chronic atrial fibrillation With failed cardiac ablation and cardioversion on several occasions. On long-term Coumadin for stroke prophylaxis. Process Analyst is Dr. Vasquez at [facility] in [place]. Chronic respiratory failure with hypoxia, on home oxygen therapy 3 L nasal cannula with rest p.r.n. 4 L bleed in at nighttime. Congestive heart failure Echocardiogram on 03/27/2021 showed an enlarged left ventricular chamber with normal LV systolic function and an estimated EF of 55 to 60%, diastolic dysfunction, moderately enlarged right ventricular chamber, reduced RV systolic function, biatrial enlargement, mild regurgitation of annuloplasty ring of a prosthetic mitral valve, and mild pulmonary hypertension with an estimated pulmonary arterial systolic pressure of 44 mmHg. COPD (chronic obstructive pulmonary disease) Coronary artery disease (~2001) Status post three-vessel bypass. Depression with anxiety Essential hypertension Hyperlipidemia Hyperthyroidism MRSA colonization Obstructive sleep apnea Approved for trilogy unit in February 2020. Osteoarthritis Type 2 diabetes mellitus Hemoglobin A1c was 6.4% on 03/26/2021. Type 2 diabetes mellitus without complication, without long-term current use of insulin Valvular heart disease Status post mitral valve repair. Surgical History Surgical History History of coronary artery bypass graft x 3 History of mitral valve repair Family History Family History Father Family history of cardiovascular disease Family history of malignant neoplasm of bone Mother Family history of malignant neoplasm Sibling Family history of cardiovascular disease Social History Social History Social History: He lives alone and is retired from [employer] business. Surrogate decision maker: Alton Peters, brother. 3 daughters Code status: Full code. Smoking packs per day: 2 Smoking cigarettes per day: 40.0 Years smoked: 40 Smoking pack-years: 80.00 Smoking status: Former smoker Second hand tobacco smoke exposure: No Alcohol intake: never Alcohol use details: recovering alcoholic since 1996, rare occasional single beer Substance use: never Lack of Transportation: No Lack
[2023-01-17] MEDS: KCL 20 MEQ/SW 100 ML 100 ML 50 MEQ IVPB (05:14)
[2023-01-17] MEDS: POTASSIUM CHLORIDE 20 MEQ PACKET (FOR LIQUID) 40 MEQ PO (05:14)
[2023-01-17] MEDS: oxyCODONE/ACETAMINOPHEN (*CRX) 5-325 MG TABLET 1 TABLET PO (05:14)
[2023-01-17] MEDS: SODIUM CHLORIDE 0.9% IV 500 ML 125 ML IV CONT (05:40)
[2023-01-17 05:57] LABS: Magnesium 2.2 mg/dL (1.6-2.3); Phosphorus 3.6 mg/dL (2.5-4.5)
--- NOTE | 2023-01-17 06:28 | ADMGEN ---
This patient, John Peters, was admitted to IMU Room 205-02. Patient/family oriented to hospital policies and general routines including ID bracelet, bed and alarms, visiting hours, pain management, procedures, bathroom and other care routines, personal items, smoking policy, room service/diet, and visiting hours. Information on how to activate the Rapid Response Team has been discussed. Patient/Family are encouraged to report perceived risks to care and to ask questions if they do not understand what they are told or what they should do.
--- NOTE | 2023-01-17 07:37 | PM.IMHP ---
H&P: HPI History of Present Illness Date/Time: 01/17/23 07:37 Chief Complaint: Chest pain Narrative: 72 years old gentleman with history of CAD, status post CABG, CHF, echocardiogram in October 2022 EF 40-45%, hypertension, hyperlipidemia, chronic AFib, failed ablation, type 2 diabetes, presenting ED with a chief complaint of chest pain. Patient had episode of chest pain in the evening, pressure-like, associated with lightheadedness and several episodes of syncope and home. Patient states that he went to bathroom yesterday, when patient tried to stand up, patient had a severe chest pain, general weakness and dizziness, then patient passed out. After patient regained consciousness, patient was not confused, patient denied tongue bite, abdomen pain, nausea vomiting diarrhea. Patient also denied focal weakness, fever, chills, dysuria. The patient tried to reach out the phone to call EMS, patient passed out again. Patient was brought to ED by EMS. in the ED, patient was found have chronic AFib RVR, heart rate about 110, no specific ST-T changes, troponin pending, hypokalemia 2.5, Cl head shows no acute intracranial issues but old infarct involving left temporoparietal region and left insula. Blood pressure was marginally low in the ED Review of Systems Review of Systems: ROS negative reset above [facility] Past Medical History Medical History Cardiomyopathy Cerebrovascular accident (~05/2018) With global aphasia, much improved with mild expressive aphasia. Chronic anemia Chronic atrial fibrillation With failed cardiac ablation and cardioversion on several occasions. On long-term Coumadin for stroke prophylaxis. Corporate Controller is Dr. Vasquez at [facility]. Chronic respiratory failure with hypoxia, on home oxygen therapy 3 L nasal cannula with rest p.r.n. 4 L bleed in at nighttime. Congestive heart failure Echocardiogram on 03/27/2021 showed an enlarged left ventricular chamber with normal LV systolic function and an estimated EF of 55 to 60%, diastolic dysfunction, moderately enlarged right ventricular chamber, reduced RV systolic function, biatrial enlargement, mild regurgitation of annuloplasty ring of a prosthetic mitral valve, and mild pulmonary hypertension with an estimated pulmonary arterial systolic pressure of 44 mmHg. COPD (chronic obstructive pulmonary disease) Coronary artery disease (~2001) Status post three-vessel bypass. Depression with anxiety Essential hypertension Hyperlipidemia Hyperthyroidism MRSA colonization Obstructive sleep apnea Approved for trilogy unit in February 2020. Osteoarthritis Type 2 diabetes mellitus Hemoglobin A1c was 6.4% on 03/26/2021. Type 2 diabetes mellitus without complication, without long-term current use of insulin Valvular heart disease Status post mitral valve repair. Surgical History Surgical History History of coronary artery bypass graft x 3 History of mitral valve repair Family History Family History Father Family history of cardiovascular disease Family history of malignant neoplasm of bone Mother Family history of malignant neoplasm Sibling Family history of cardiovascular disease Social History Social History Social History: He lives alone and is retired from [employer] business. Surrogate decision maker: Alton Peters, brother. 3 daughters Code status: Full code. Smoking packs per day: 1.5 Smoking cigarettes per day: 30.0 Years smoked: 31 Smoking pack-years: 46.50 Smoking status: Former smoker Tobacco type: cigarettes Second hand tobacco smoke exposure: No Alcohol intake: former Alcohol use details: recovering alcoholic since 1996, rare occasional single be
[2023-01-17 08:10] LABS: Glucose Point of Care 226 mg/dl (65-105)
[2023-01-17 08:28] LABS: Troponin I 0.014 ng/mL (0.000-0.034)
[2023-01-17 09:04] LABS: Digoxin 0.6 ng/mL (0.8-2.0)
[2023-01-17] MEDS: PREGABALIN (*CRX) 50 MG CAPSULE PO ×3 (09:24→17:25)
[2023-01-17] MEDS: DULoxetine HCL 60 MG CAPSULE.DR PO (09:24)
[2023-01-17] MEDS: EMPAGLIFLOZIN 25 MG TABLET PO (09:24)
[2023-01-17] MEDS: methiMAzole 5 MG TAB 15 MG PO (09:24)
[2023-01-17] MEDS: DIGOXIN 250 MCG TABLET PO (09:25)
[2023-01-17] MEDS: APIXABAN 5 MG TABLET PO ×2 (09:25→17:25)
[2023-01-17] MEDS: SODIUM CHLORIDE 0.9% IV 1,000 ML 100 ML IV CONT ×2 (09:25→20:30)
[2023-01-17] MEDS: POTASSIUM CHLORIDE 20 MEQ PACKET (FOR LIQUID) PO (09:42)
--- NOTE | 2023-01-17 10:03 | PM.CNCAR ---
Assessment and Plan Assessment and plan (1) Chest pain: Code(s): R07.9 - Chest pain, unspecified Status: Acute Assessment and Plan: Patient had chest discomfort last night with some ST depression on his EKG suggesting this was anginal pain. I think this was likely related to his hypotension, syncope and distress superimposed on CAD. Doubt ACS; troponins have all been negative. In addition he has some chest wall tenderness and soreness likely due to injury from his syncope. --repeat EKG --if recurrent chest discomfort, ischemia evaluation (2) Syncope: Code(s): R55 - Syncope and collapse Status: Acute Assessment and Plan: Recurrent syncope with prodroome, in the face of dehydration and hypotension. No evidence of a cardiac arrhythmia. --IV hydration --hold Bumex and metolazone (3) JESUS (acute kidney injury): Code(s): N17.9 - Acute kidney failure, unspecified Status: Acute Assessment and Plan: The patient's BUN and creatinine have increased significantly in the past 2 weeks, corresponding to the time when his semaglutide was increased. Patient does admit to a decreased appetite recently. Appears dehydrated and mildly hypotensive. --getting normal saline 100 cc/hour --hold Bumex adn metolazone --likely will reduce diuretic on discharge, perhaps the metolazone which he gets 3 times a week. (4) Hypokalemia: Code(s): E87.6 - Hypokalemia Status: Acute Assessment and Plan: Severe hypokalemia noted, which may be contributing to muscle weakness. Unclear why his potassium has dropped so much the last 3 weeks. He is is supposed to take potassium 40 mEq t.i.d. and his brother has noted some medication noncompliance, so perhaps it is a compliance issue. --potassium has been supplemented with oral and p.o. potassium --daily BMP (5) Chronic atrial fibrillation: Code(s): I48.20 - Chronic atrial fibrillation, unspecified Status: Acute Assessment and Plan: Chronic atrial fibrillation, rate controlled. Tolerating anticoagulation --continue metoprolol 100 mg b.i.d., digoxin and Eliquis 5 mg b.i.d. (6) Coronary artery disease: Onset Date: ~2001 Code(s): I25.10 - Atherosclerotic heart disease of [place] coronary artery without angina pectoris Status: Acute Assessment and Plan: History of CAD with CABG about 10 years ago. I do not believe the patient has had an ischemia evaluation for a long time, but he has has not had angina either. --continue secondary prevention with Eliquis, atorvastatin --Ischemia evaluation if ongoing antinal sx (7) Chronic systolic heart failure: Code(s): I50.22 - Chronic systolic (congestive) heart failure Status: Acute Assessment and Plan: History of heart failure, EF 40-45%. Doing well, not in active heart failure. Appears a little intravascularly dry this admission. --continue control of atrial fibrillation, Jardiance, and some diuretic on discharge History of Present Illness History of Present Illness Consult date/time: 01/17/23 10:03 Reason For Visit: Chest Pain/Syncope/Hypokalemia Narrative: John Peters is a 62 y.o. male whom I was asked to see at the request of Dr. Barker for my advice and opinion regarding his unstable angina and syncope, in consultation. Mr Peters has a history of diastolic heart failure, CAD & CABG, mitral valve repair about 10 years ago,?permanent?atrial fibrillation, COPD, HERNAN, hypertension and diabetes.? EF 40-45%.? The patient was hospitalized in October for AFib RVR and CHF, discharged taking metoprolol 100 mg b.i.d., Bumex 2 mg b.i.d., but his diltiazem and metolazone were discontinued. He was readmitted in November for AFib RVR and CHF. Digoxin was added, and he was discharged on 11/20/2022 with this and metoprolol 100 mg b.i.d., Bumex 2 mg b.i.d., and metolazone 3 times weekly. He was seen by Dr. Spence on 12/14/2022 doing well. Patient
[2023-01-17 11:42] LABS: Troponin I < 0.012 ng/mL (0.000-0.034)
[2023-01-17 11:55] LABS: Glucose Point of Care 232 mg/dl (65-105)
[2023-01-17] MEDS: BUMETANIDE 1 MG TABLET 2 MG PO (11:58)
[2023-01-17] MEDS: oxyCODONE HCL (*CRX) 5 MG TAB IR PO ×2 (11:58→20:25)
[2023-01-17] MEDS: INSULIN ASPART (*BKC) 100 UNITS/ML SUB-Q ×2 (11:59→20:26)
[2023-01-17 12:45] LABS: Anion Gap 16 mmol/L (8-16); Blood Urea Nitrogen 42 mg/dL (9-20); Carbon Dioxide 31 mmol/L (22-30); Chloride 86 mmol/L (98-107); Estimated CRCL calculation 67 ml/min; Estimated Glomerular Filt Rate > 60; Glucose 218 mg/dL (65-110); Potassium 3.2 mmol/L (3.4-5.0); Sodium 133 mmol/L (137-145)
[2023-01-17] MEDS: POTASSIUM CHLORIDE 20 MEQ ER TABLET 40 MEQ PO ×2 (13:08→17:25)
[2023-01-17 16:59] LABS: Glucose Point of Care 164 mg/dl (65-105)
[2023-01-17] MEDS: METOPROLOL TARTRATE 50 MG TAB 100 MG PO (17:25)
[2023-01-17 19:50] LABS: Glucose Point of Care 210 mg/dl (65-105)
[2023-01-17] MEDS: ATORVASTATIN 40 MG TABLET PO (20:25)
[2023-01-18] VITALS (20 sets, daily range): BP systolic 96–126; BP diastolic 59–68; PULSE 58–92; RESP 16–22; TEMP 35.6–36.6; O2SAT 96–98
[2023-01-18 04:33] LABS: Anion Gap 5 mmol/L (8-16); Blood Urea Nitrogen 34 mg/dL (9-20); Calcium 8.8 mg/dL (8.4-10.2); Carbon Dioxide 37 mmol/L (22-30); Chloride 89 mmol/L (98-107); Estimated CRCL calculation 80 ml/min; Estimated Glomerular Filt Rate > 60; Glucose 173 mg/dL (65-110); Potassium 2.7 mmol/L (3.4-5.0); Sodium 131 mmol/L (137-145)
[2023-01-18] MEDS: POTASSIUM CHLORIDE 20 MEQ PACKET (FOR LIQUID) 80 MEQ PO (06:01)
[2023-01-18] MEDS: oxyCODONE HCL (*CRX) 5 MG TAB IR PO ×4 (06:08→22:30)
--- NOTE | 2023-01-18 08:00 | ECG_ITS ---
Measurements Intervals [place] Rate: 62 P: [place]: 0 QRS: 93 QRSD: 95 T: 60 QT: 370 QTc: 377 Interpretive Statements ATRIAL FIBRILLATION RIGHT AXIS DEVIATION NONSPECIFIC ST & T-WAVE ABNORMALITY- ANT/INF LEADS ABNORMAL ECG COMPARED TO ECG 01/17/2023 01:56:30 NO SIGNIFICANT CHANGES Electronically Signed On 01-18-2023 13:55:10 CDT by Charli Griffiths D.O.
[2023-01-18 08:05] LABS: Glucose Point of Care 171 mg/dl (65-105)
--- NOTE | 2023-01-18 08:27 | PM.IMPN ---
Progress Note: A&P Assessment and Plan (1) Unstable angina: Code(s): I20.0 - Unstable angina Status: Acute (2) Syncope: Code(s): R55 - Syncope and collapse Status: Acute (3) Atrial fibrillation with RVR: Code(s): I48.91 - Unspecified atrial fibrillation Status: Acute (4) Mixed hyperlipidemia: Code(s): E78.2 - Mixed hyperlipidemia Status: Chronic (5) Chronic obstructive pulmonary disease, unspecified: Qualifiers: COPD type: unspecified COPD Qualified Code(s): J44.9 - Chronic obstructive pulmonary disease, unspecified Code(s): J44.9 - Chronic obstructive pulmonary disease, unspecified Status: Chronic (6) Hypotension: Qualifiers: Hypotension type: unspecified hypotension type Qualified Code(s): I95.9 - Hypotension, unspecified Code(s): I95.9 - Hypotension, unspecified Status: Acute (7) Type 2 diabetes mellitus: Qualifiers: Diabetes mellitus complication status: with other specified complication Diabetes mellitus chcf insulin use: with intermission coordinator use Qualified Code(s): E11.69 - Type 2 diabetes mellitus with other specified complication; Z79.4 - terminal make up operator (current) use of insulin Code(s): E11.9 - Type 2 diabetes mellitus without complications Status: Acute (8) Hypokalemia: Code(s): E87.6 - Hypokalemia Status: Acute (9) Chronic systolic heart failure: Code(s): I50.22 - Chronic systolic (congestive) heart failure Status: Acute (10) Essential hypertension: Code(s): I10 - Essential (primary) hypertension Status: Acute (11) Hyperthyroidism: Code(s): E05.90 - Thyrotoxicosis, unspecified without thyrotoxic crisis or storm Status: Chronic Plan Chest pain History of CAD status post CABG, sudden-onset chest pain the day before the admission Start aspirin 325 mg once, 81 mg daily p.o., patient is on Eliquis 5 mg b.i.d. p.o., will not start new blood thinner Continue Lipitor 40 mg daily p.o. Nitroglycerin sublingual p.r.n. Consult functional architect for evaluation treatment Syncope Unclear etiology, possible due to HoTN and dehydration given history of CAD, systolic CHF, we need to rule out cardiogenic syncope Telemetry monitoring, no significant arrhythmia Fall precaution CT of head shows no acute intracranial issues Follow-up orthostatic test Consult functional architect for evaluation Hold the trazodone because of side effects QT prolongation and arrhythmia Hyponatremia Sodium 131 Start sodium chloride 1 g t.i.d. p.o. Follow-up bMP Chronic systolic heart failure hold metolazone 5 mg daily p.o. Bumex 2 mg b.i.d. p.o., c/w Jardiance 25 mg daily p.o. Fluid restriction BP is soft COPD continue DuoNeb q.6 hours or as needed O2 therapy. Hypothyroidism Continue methimazole 10 mg daily p.o. Follow-up TSH Chronic AFib RVR Continue Eliquis 5 mg b.i.d. p.o., digoxin 250 mg daily p.o. metoprolol 100 mg b.i.d. p.o. Blood pressure soft Consult functional architect for evaluation the medications Type 2 diabetes Hold metformin Continue Jardiance Start insulin sliding scale a.c. q.h.s. Patient may stay more than 2 midnights in hospital Patient wishes DNR DNI, the code status full discussed with patient in presence of patient's nurse at the bedside Subjective Date/time seen: 01/18/23 08:27 Interval history: I have saw and examined patient today, patient denies chest pain, lightheadedness, palpitation, abdominal pain, nausea vomiting. Patient is afebrile, hemodynamically stable, Exam Narrative: GENERAL: Pleasant, in no acute distress. Well-nourished. - EYES: EOMI. Anicteric. - HENT: Moist mucous membranes. - LUNGS: Clear to auscultation bilaterally, no wheezing, rhonchi, or rales. - CARDIOVASCULAR: Regular rate and rhythm. No murmur. No JVD. - ABDOMEN: Soft, non-tender and non-distended. No palpable masses. - EXTREMIT
[2023-01-18] MEDS: SODIUM CHLORIDE 0.9% IV 1,000 ML 100 ML IV CONT ×2 (10:32→17:20)
[2023-01-18] MEDS: DIGOXIN 250 MCG TABLET PO (10:33)
[2023-01-18] MEDS: EMPAGLIFLOZIN 25 MG TABLET PO (10:34)
[2023-01-18] MEDS: methiMAzole 5 MG TAB 15 MG PO (10:34)
[2023-01-18] MEDS: APIXABAN 5 MG TABLET PO ×2 (10:34→17:14)
[2023-01-18] MEDS: ASPIRIN 81 MG ENTERIC TABLET PO (10:34)
[2023-01-18] MEDS: POTASSIUM CHLORIDE 20 MEQ ER TABLET 40 MEQ PO ×3 (10:35→17:14)
[2023-01-18] MEDS: METOPROLOL TARTRATE 50 MG TAB 100 MG PO ×2 (10:35→17:15)
[2023-01-18] MEDS: DULoxetine HCL 60 MG CAPSULE.DR PO (10:36)
[2023-01-18] MEDS: PREGABALIN (*CRX) 50 MG CAPSULE PO ×3 (10:39→17:14)
[2023-01-18 11:55] LABS: Glucose Point of Care 161 mg/dl (65-105)
[2023-01-18 12:05] LABS: Potassium 3.6 mmol/L (3.4-5.0)
--- NOTE | 2023-01-18 14:37 | PCCCNOTE ---
On 01/18/23, the student, [Guadalupe Wells], provided care and [facility] I have reviewed the student's documentation and agree with the findings.
[2023-01-18 16:41] LABS: Glucose Point of Care 129 mg/dl (65-105)
[2023-01-18 20:32] LABS: Glucose Point of Care 177 mg/dl (65-105)
[2023-01-18] MEDS: ATORVASTATIN 40 MG TABLET PO (20:56)
--- NOTE | 2023-01-18 21:37 | PC.NURSE ---
This patient, John Peters, was transferred to [320-1 ] on 01/18/23 at 2137. Personal belongings sent with patient. Report given to [ Geetha ZAMBRANO]. Appropriate documentation sent with patient.
[2023-01-19] VITALS (7 sets, daily range): BP systolic 90; BP diastolic 58; PULSE 54–69; RESP 18; TEMP 36.1; O2SAT 100
[2023-01-19] MEDS: oxyCODONE HCL (*CRX) 5 MG TAB IR PO ×3 (02:25→11:16)
[2023-01-19] MEDS: SODIUM CHLORIDE 0.9% IV 1,000 ML 100 ML IV CONT (02:26)
[2023-01-19 06:49] LABS: Anion Gap 5 mmol/L (8-16); Blood Urea Nitrogen 19 mg/dL (9-20); Calcium 8.3 mg/dL (8.4-10.2); Carbon Dioxide 31 mmol/L (22-30); Chloride 98 mmol/L (98-107); Estimated CRCL calculation 111 ml/min; Estimated Glomerular Filt Rate > 60; Glucose 138 mg/dL (65-110); Phosphorus 2.8 mg/dL (2.5-4.5); Potassium 3.8 mmol/L (3.4-5.0); Sodium 134 mmol/L (137-145)
[2023-01-19 08:19] LABS: Glucose Point of Care 167 mg/dl (65-105)
[2023-01-19] MEDS: DIGOXIN 250 MCG TABLET PO (08:41)
[2023-01-19] MEDS: EMPAGLIFLOZIN 25 MG TABLET PO (08:41)
[2023-01-19] MEDS: methiMAzole 5 MG TAB 15 MG PO (08:42)
[2023-01-19] MEDS: APIXABAN 5 MG TABLET PO (08:42)
[2023-01-19] MEDS: METOPROLOL TARTRATE 50 MG TAB 100 MG PO (08:42)
[2023-01-19] MEDS: DULoxetine HCL 60 MG CAPSULE.DR PO (08:42)
[2023-01-19] MEDS: PREGABALIN (*CRX) 50 MG CAPSULE PO ×2 (08:43→14:00)
[2023-01-19] MEDS: POTASSIUM CHLORIDE 20 MEQ ER TABLET 40 MEQ PO ×2 (08:43→14:00)
[2023-01-19] MEDS: ASPIRIN 81 MG ENTERIC TABLET PO (08:43)
[2023-01-19] MEDS: MINERAL OIL/WHITE PETROLATUM OINTMENT 1 APPLIC EACH EYE (08:45)
[2023-01-19 11:18] LABS: Glucose Point of Care 153 mg/dl (65-105)
--- NOTE | 2023-01-19 13:18 | PM.DS ---
DS: Admitting Diagnosis Discharge Date 01/19/2023 Admitting Diagnosis Chest pain DS: Discharge Diagnosis Discharge Diagnosis (1) Unstable angina: Code(s): I20.0 - Unstable angina Status: Acute (2) Syncope: Code(s): R55 - Syncope and collapse Status: Acute (3) Atrial fibrillation with RVR: Code(s): I48.91 - Unspecified atrial fibrillation Status: Acute (4) Mixed hyperlipidemia: Code(s): E78.2 - Mixed hyperlipidemia Status: Chronic (5) Chronic obstructive pulmonary disease, unspecified: Qualifiers: COPD type: unspecified COPD Qualified Code(s): J44.9 - Chronic obstructive pulmonary disease, unspecified Code(s): J44.9 - Chronic obstructive pulmonary disease, unspecified Status: Chronic (6) Hypotension: Qualifiers: Hypotension type: unspecified hypotension type Qualified Code(s): I95.9 - Hypotension, unspecified Code(s): I95.9 - Hypotension, unspecified Status: Acute (7) Type 2 diabetes mellitus: Qualifiers: Diabetes mellitus complication status: with other specified complication Diabetes mellitus intermediate manager insulin use: with intermediate manager use Qualified Code(s): E11.69 - Type 2 diabetes mellitus with other specified complication; Z79.4 - residential (current) use of insulin Code(s): E11.9 - Type 2 diabetes mellitus without complications Status: Acute (8) Hypokalemia: Code(s): E87.6 - Hypokalemia Status: Acute (9) Chronic systolic heart failure: Code(s): I50.22 - Chronic systolic (congestive) heart failure Status: Acute (10) Essential hypertension: Code(s): I10 - Essential (primary) hypertension Status: Acute (11) Hyperthyroidism: Code(s): E05.90 - Thyrotoxicosis, unspecified without thyrotoxic crisis or storm Status: Chronic Plan Chest pain History of CAD status post CABG, sudden-onset chest pain the day before the admission Start aspirin 325 mg once, 81 mg daily p.o., patient is on Eliquis 5 mg b.i.d. p.o., will not start new blood thinner Continue Lipitor 40 mg daily p.o. Nitroglycerin sublingual p.r.n. Consulted junior paralegal as per cardiology note below- Patient is readmitted with another episode of acute on chronic CHF, failing outpatient therapy with increasing diuretics.? Probably aggravated by his underlying atrial fibrillation , RVR.??Also he was not discharged on metolazone last admission.? It was resumed on a FU visit a few days LAN MANAGER.? Continues to diurese and improved. --transition to home dose of Bumex, Bumex 2 mg b.i.d. orally --resume metolazone mg daily for now (perhaps as OPT reduce to 3 times a week) --Afib rate controlled --OK for discharge today --Close follow up in our office Syncope Unclear etiology, possible due to HoTN and dehydration given history of CAD, systolic CHF, we need to rule out cardiogenic syncope Telemetry monitoring, no significant arrhythmia CT of head shows no acute intracranial issues Follow-up orthostatic test Consult junior paralegal for evaluation Hold the trazodone because of side effects QT prolongation and arrhythmia Hyponatremia Sodium 131 Start sodium chloride 1 g t.i.d. p.o. in hospital only Chronic systolic heart failure adjust diuretics Fluid restriction COPD continue DuoNeb q.6 hours or as needed O2 therapy. Hypothyroidism Continue methimazole 10 mg daily p.o. Follow-up TSH Chronic AFib RVR Continue Eliquis 5 mg b.i.d. p.o., digoxin 250 mg daily p.o. metoprolol 100 mg b.i.d. p.o. Blood pressure soft Consult junior paralegal for evaluation the medications Type 2 diabetes Hold metformin Continue Aliza DS: Summary Hospital Course Hospital Course: 72 years old gentleman with history of CAD, status post CABG, CHF, echocardiogram in October 2022 EF 40-45%, hypertension, hyperlipidemia, chronic AFib, failed ablation, type 2 diabetes, presenting ED with a chief
== END 2023-01-19 14:55 | disposition home or self-care (01) ==
LOC: ANHED 05:50 → ANHIMU 06:03 → ANH3MEDSUR 01-18 21:54
PROVIDERS: Hospitalist; Internal Medicine Cardiovascular Disease; Admitting Provider Internal Medicine; Emergency Provider Emergency Medicine; PCP Family Medicine Sports Medicine; Visit Provider Internal Medicine
DX: I25.110 Atherosclerotic heart disease of native coronary artery with unstable angina pectoris (principal); Z95.1 Presence of aortocoronary bypass graft; R55 Syncope and collapse; I48.91 Unspecified atrial fibrillation; E78.2 Mixed hyperlipidemia; J44.9 Chronic obstructive pulmonary disease, unspecified; I95.9 Hypotension, unspecified; E11.69 Type 2 diabetes mellitus with other specified complication; E87.6 Hypokalemia; I11.0 Hypertensive heart disease with heart failure; I50.22 Chronic systolic (congestive) heart failure; E05.90 Thyrotoxicosis, unspecified without thyrotoxic crisis or storm; R07.9 Chest pain, unspecified; I42.9 Cardiomyopathy, unspecified; D64.9 Anemia, unspecified; J96.11 Chronic respiratory failure with hypoxia; Z99.81 Dependence on supplemental oxygen; N17.9 Acute kidney failure, unspecified; R94.31 Abnormal electrocardiogram [ECG] [EKG]; F41.8 Other specified anxiety disorders; E03.9 Hypothyroidism, unspecified; G47.33 Obstructive sleep apnea (adult) (pediatric); F10.90 Alcohol use, unspecified, uncomplicated; I69.320 Aphasia following cerebral infarction; Z87.891 Personal history of nicotine dependence; Z79.891 Long term (current) use of opiate analgesic; Z79.01 Long term (current) use of anticoagulants; Z79.84 Long term (current) use of oral hypoglycemic drugs; Z79.899 Other long term (current) drug therapy; Z82.49 Family history of ischemic heart disease and other diseases of the circulatory system
CPT/HCPCS: 36415; 70450; 71045; 80048; 80053; 80162; 82948; 83690; 83735; 83880; 84100; 84132; 84484; 85025; 85610; 85730; 93005; 93880; 94002; 96361; 96365; 99285; A9270; G0378; J1815; J3480; J7030; J7040

== ENCOUNTER 2023-02-07 22:15 | Emergency (ER) | payer MEDICARE, MEDICAID, SELFPAY ==
[2023-02-07 22:15] VITALS: BP 107/59; PULSE 80; RESP 17; TEMP 36.6; O2SAT 98
--- NOTE | 2023-02-07 23:58 | PC.NURSE ---
Patient ambulates to desk with steady unassisted gait to state that I don't want to wait anymore, I'm going home. Patient IV removed and patient ambulated out of the ED with a steady gait to get picked up in [address].
== END 2023-02-07 23:58 | disposition left against medical advice (07) ==
PROVIDERS: PCP Family Medicine Sports Medicine
DX: R51.9 Headache, unspecified (principal)
CPT/HCPCS: 99199

== ENCOUNTER 2023-06-21 15:48 | Inpatient (IN) | payer MEDICARE, MEDICAID, SELFPAY ==
[2023-06-21] VITALS (19 sets, daily range): BP systolic 115–142; BP diastolic 70–96; PULSE 92–138; RESP 14–22; TEMP 36.6; O2SAT 93–98
--- NOTE | ~2023-06-21 | XR_ITS ---
EXAMINATION: XR chest 2V DATE: 06/21/2023 16:39 INDICATION: Chest pain TECHNIQUE: AP and lateral views of the chest are obtained. COMPARISON: 01/17/2023 FINDINGS: The lungs are free of acute opacities. No pleural effusion or pneumothorax. The cardiomedia stinal silhouette is normal. There is moderate thoracic spondylosis. There are changes of prior cardi ac surgery. IMPRESSION: 1. Cardiomegaly. Reviewed, dictated and finalized at location B. H RIB GRADER IMPRESSION: 1. Cardiomegaly.
--- NOTE | ~2023-06-21 | CT_ITS ---
EXAMINATION: CT cervical spine wo con DATE: 06/21/2023 17:58 INDICATION: Neck pain TECHNIQUE: Computed tomography (CT) of the cervical spine was performed without intravenous contrast. Automated exposure control and iterative reconstruction technique were employed. The dose-length pro duct was 715.88 mGy-cm. COMPARISON: None FINDINGS: Alignment is normal. Vertebral body heights are normal. No fracture. Moderate osteoarthritis at the a tlantoaxial articulation. Moderate disc height loss at C6-C7, mild to moderate disc height loss at C5 -C6 and mild disc height loss at C3-C4 and C4-C5 along several levels in the visualized upper thoraci c spine. Disc bulges at C2-C3 through C5-C6 and posterior disc osteophyte complex at C6-C7, each resu lting in mild central canal stenosis. There is severe right-sided and moderate left-sided uncovertebr al osteoarthritis at C6-C7. There is mild to moderate uncovertebral osteoarthritis the remaining cerv ical levels. There is severe facet osteoarthritis on the right at C3-C4 and C7-T1 and on the left at C2-C3. There is mild to moderate facet osteoarthritis at the remaining cervical levels. This results in moderate neural foraminal stenosis on the right at C6-C7 and mild neural from stenosis at many of the remaining cervical levels on both the left and right. Atherosclerotic calcific a cyst at the bila teral carotid bulbs. Multinodular goiter. Cervical soft tissues are otherwise unremarkable. Tiny calc ified nodule at the right apex along with calcified mediastinal and bilateral hilar lymph nodes consi stent with old granulomatous disease. IMPRESSION: 1. Moderate cervical spondylosis. No acute osseous abnormality. 2. Multinodular goiter. Reviewed, dictated and finalized at location A. PAPER SCRAPER
--- NOTE | ~2023-06-21 | CT_ITS ---
EXAMINATION: CT brain wo con DATE: 06/21/2023 17:58 INDICATION: Headache TECHNIQUE: Computed tomography (CT) of the head was performed without intravenous contrast. Sagittal and coronal reconstructions were performed. The mA was adjusted according to patient size. Iterative reconstruction technique was employed. The dose-length product was 715.88 mGy-cm. COMPARISON: head CT dated 01/17/2023 FINDINGS: Chronic arachnoid cyst measuring approximately 4.4 x 2.4 cm and middle cranial fossa anterior to the left temporal lobe. Stable appearance of an old infarct involving the left temporoparietal region and the left insula. No acute intracranial hemorrhage, acute infarction or abnormal extra axial fluid co llection. Ventricles are normal and symmetric. No mass/mass effect. Mucosal thickening the posterior right ethmoid sinus and a retention cyst in the left sphenoid sinus. There is also a small osteoma in the posterior left ethmoid sinus. The orbits and mastoid air cells are normal. IMPRESSION: 1. Old infarct in the left temporoparietal region and left insula. No acute intracranial process. Reviewed, dictated and finalized at location A. NG MACHINE OPERATOR HELPER IMPRESSION: 1. Old infarct in the left temporoparietal region and left insula. No acute int racranial process.
--- NOTE | ~2023-06-21 | CT_ITS ---
EXAMINATION: CTA chest DATE: 06/21/2023 20:49 INDICATION: Generalized chest pain TECHNIQUE: Computed tomographic angiography (CTA) of the chest was performed without and with 100 mL Omnipaque-350 intravenous contrast. Volume-rendered 3D-reconstructions of the aorta and large arterie s were constructed by the technologist on a separate workstation. Automated exposure control and iter ative reconstruction technique were employed. The dose-length product was 978.52 mGy-cm. COMPARISON: 03/27/2021 FINDINGS: Multiple bilateral calcified pulmonary nodules and calcified mediastinal and bilateral hilar lymph no luzma and several scattered small hepatic and splenic calcifications, all consistent with old granuloma tous disease. No pneumonia, pulmonary edema or pleural effusion. Heart size is normal with left atria l enlargement. Atherosclerotic coronary artery calcifications. Postoperative change of prior median s ternotomy and coronary artery bypass grafting. Thoracic aorta is normal in caliber with no dissection . Although not performed as a pulmonary embolism protocol there is relatively good contrast opacifica tion of the central pulmonary arteries demonstrating no pulmonary arterial embolism through at least the segmental pulmonary arteries. No significant change in a multinodular No pathologically enlarged thoracic lymphadenopathy. Goiter with intrathoracic extension. Peripheral discontiguous puddling of contrast at approximately 3.5 cm hemangioma in the right hepatic lobe which can be seen dating back t o 10/04/2003. No significant change in a 2 cm left adrenal adenoma with a retrocecal attenuation on pr ior CT. Small cysts at the visualized upper poles of both kidneys the larger on the left measuring 1. 5 cm. Mild to moderate thoracic spondylosis with chronic mild anterior wedging at T6 and T7. IMPRESSION: 1. No acute cardiopulmonary disease. Thoracic aorta is normal in caliber with no dissection. 2. Left atrial enlargement. Reviewed, dictated and finalized at location A. E DESIGNER IMPRESSION: 1. No acute cardiopulmonary disease. Thoracic aorta is normal in caliber with n o dissection. 2. Left atrial enlargement.
--- NOTE | 2023-06-21 16:15 | ECG_ITS ---
Measurements Intervals [place] Rate: 94 P: DC: 0 QRS: 68 QRSD: 97 T: 46 QT: 360 QTc: 452 Interpretive Statements ATRIAL FIBRILLATION LOW QRS VOLTAGE IN EXTREMITY LEADS [QRS DEFLECTION < 0.5 mV IN LIMB LEADS] MODERATE ST DEPRESSION [0.05+ mV ST DEPRESSION] ABNORMAL ECG COMPARED TO ECG 01/18/2023 13:52:19 ST (T WAVE) DEVIATION NOW PRESENT Electronically Signed On 06-22-2023 16:49:54 ARCH CUSHION PRESS OPERATOR by Cameron Salas M.D.
[2023-06-21 16:32] LABS: Basophils Absolute Auto 0.1 K/mm3 (0.0-0.1); Basophils Percent Auto 0.6 % (0.2-1.2); Eosinophils Absolute Auto 0.3 K/mm3 (0-0.3); Hematocrit 44.6 % (42.0-52.0); Hemoglobin 14.3 g/dL (14.0-18.0); Immature Granulocyte Absolute 0.03 K/mm3 (0.00-0.031); Immature Granulocyte Percent A 0.4 % (0-0.5); Lymphocytes Absolute Auto 1.52 K/mm3 (0.9-3.2); Lymphocytes Percent Auto 19.6 % (18.3-44.2); Mean Corpuscular HGB Conc 32.1 g/dl (32-36); Mean Corpuscular Hemoglobin 29.2 pg (26-34); Mean Corpuscular Volume 91.2 fl (80-100); Mean Platelet Volume 9.5 fl (7.4-10.4); Monocytes Absolute Auto 0.7 K/mm3 (0.1-0.6); Monocytes Percent Auto 9.5 % (2.6-8.5); Neutrophils Absolute Auto 5.1 K/mm3 (1.3-6.7); Neutrophils Percent Auto 65.9 % (45.5-73.1); Platelet Count Result 169 k/mm3 (150-375); Red Blood Count 4.89 M/mm3 (4.6-6.20); Red Cell Distribution Width 14.4 % (11.5-14.5); White Blood Count 7.8 K/mm3 (4.5-10.0)
[2023-06-21 16:41] LABS: Alanine Aminotransferase 25 U/L (6-50); Albumin Level 4.1 g/dL (3.5-5.1); Alkaline Phosphatase 114 U/L (38-126); Anion Gap 8 mmol/L (8-16); Aspartate Amino Transferase 21 U/L (17-59); Bilirubin,Total 0.4 mg/dL (0.2-1.3); Blood Urea Nitrogen 23 mg/dL (9-20); Calcium 8.5 mg/dL (8.4-10.2); Carbon Dioxide 30 mmol/L (22-30); Chloride 95 mmol/L (98-107); Estimated CRCL calculation 101 ml/min; Estimated Glomerular Filt Rate > 60; Glucose 356 mg/dL (65-110); INR 0.9; Lipase 203 U/L (23-300); Potassium 3.9 mmol/L (3.4-5.0); Prothrombin Time 12.2 Seconds (11.1-14.7); Sodium 133 mmol/L (137-145)
[2023-06-21 16:42] LABS: Partial Thromboplastin Time 24.7 SECONDS (22.3-36.8)
[2023-06-21 16:53] LABS: Troponin I < 0.012 ng/mL (0.000-0.034)
--- NOTE | 2023-06-21 17:27 | ED.CHESTPAIN ---
HPI - Chest Pain General Chief Complaint: Chest Pain <Roxanne Medrano PA-C - Last Filed: 06/22/23 09:17> Stated Complaint: CP <Roxanne Medrano PA-C - Last Filed: 06/22/23 09:17> Time Seen by Provider: 06/21/23 19:41 <Roxanne Medrano PA-C - Last Filed: 06/22/23 09:17> Source: patient <ELLIOT Azar Last Filed: 06/22/23 09:17> Mode of arrival: wheelchair <ELLIOT Azar Last Filed: 06/22/23 09:17> Limitations: no limitations <Roxanne Medrano PA-C - Last Filed: 06/22/23 09:17> History of Present Illness HPI narrative: This is a 62 year old male that presents to the ER for dizziness, jaw pain and neck pain. Reports he had been grocery shopping and just got home when his symptoms started. Reports he has not taken any pain medication. Reports his chest pain is burning in nature. Denies fever, cough, shortness of breath or lower extremity edema. <ELLIOT Azar Last Filed: 06/22/23 09:17> Related Data Home Medications: Home Medications Medication Instructions Recorded Confirmed metoprolol tartrate 100 mg tablet 100 mg PO BID 10/27/22 06/22/23 artificial tears with lanolin eye 1 applic EACH EYE Q1-4H PRN Dry 01/17/23 06/22/23 ointment Eyes potassium chloride 20 mEq 40 meq PO TID 01/17/23 06/22/23 tablet,extended release(part/cryst) trazodone 50 mg tablet 50 mg PO HS 01/17/23 06/22/23 diclofenac sodium 1 % topical gel See Rx Instructions .Route .COMPLEX 06/22/23 06/22/23 <ELLIOT Azar Last Filed: 06/22/23 09:17> Allergies/Adverse Reactions: Allergies Allergy/AdvReac Type Severity Reaction Status Date / Time morphine AdvReac Unknown Increased Verified 06/22/23 12:57 HR <ELLIOT Azar Last Filed: 06/22/23 09:17> Review of Systems Review of Systems: CONSTITUTIONAL: Denies fever EYES: Denies visual changes CARDIOVASCULAR: Reports chest pain. Denies edema. RESPIRATORY: Denies cough or dyspnea. MUSCULOSKELETAL: Reports joint pain, and myalgia. NEUROLOGIC: Reports headache. Denies numbness, or weakness. <Roxanne Medrano PA-C - Last Filed: 06/22/23 09:17> All systems reviewed & are unremarkable except as noted in HPI and below <Roxanne Medrano PA-C - Last Filed: 06/22/23 09:17> [facility] Past Medical History Medical History: Medical History Cardiomyopathy Cerebrovascular accident (~05/2018) With global aphasia, much improved with mild expressive aphasia. Chronic anemia Chronic atrial fibrillation With failed cardiac ablation and cardioversion on several occasions. On long-term Coumadin for stroke prophylaxis. Kiln Stacker is Dr. Vasquez at [facility]. Chronic respiratory failure with hypoxia, on home oxygen therapy 3 L nasal cannula with rest p.r.n. 4 L bleed in at nighttime. Congestive heart failure Echocardiogram on 03/27/2021 showed an enlarged left ventricular chamber with normal LV systolic function and an estimated EF of 55 to 60%, diastolic dysfunction, moderately enlarged right ventricular chamber, reduced RV systolic function, biatrial enlargement, mild regurgitation of annuloplasty ring of a prosthetic mitral valve, and mild pulmonary hypertension with an estimated pulmonary arterial systolic pressure of 44 mmHg. COPD (chronic obstructive pulmonary disease) Coronary artery disease (~2001) Status post three-vessel bypass. Depression with anxiety Essential hypertension H/O: substance abuse Brother reports patient is an addict, previously abused cocaine, alcohol and opiates. Hyperlipidemia Hyperthyroidism MRSA colonization Obstructive sleep apnea Approved for trilogy unit in February 2020. Osteoarthritis Type 2 diabetes mellitus Hemoglobin A1c was 6.4% on 03/26/2021. Type 2 diabetes mellitus without complication, without long-term current use of insulin Valvular heart disease Status post mitral valve repair. <Roxanne Kennedy
[2023-06-21] MEDS: ACETAMINOPHEN 500 MG TABLET 1000 MG PO (17:39)
[2023-06-21] MEDS: PANTOPRAZOLE SODIUM IV 40 MG VIAL IV PUSH (17:39)
[2023-06-21] MEDS: diazePAM INJ (*CRX) 10 MG/2 ML SYRINGE 5 MG IM (17:43)
--- NOTE | 2023-06-21 20:12 | ECG_ITS ---
Measurements Intervals [place] Rate: 102 P: [place]: 0 QRS: 97 QRSD: 112 T: 40 QT: 337 QTc: 440 Interpretive Statements ATRIAL FIBRILLATION WITH RAPID VENTRICULAR RESPONSE BORDERLINE RIGHT AXIS DEVIATION [QRS AXIS > 90] MODERATE INTRAVENTRICULAR CONDUCTION DELAY [110+ ms QRS DURATION] MINIMAL ST DEPRESSION [0.025+ mV ST DEPRESSION] ABNORMAL ECG COMPARED TO ECG 06/21/2023 16:19:15 INTRAVENTRICULAR CONDUCTION DELAY NOW PRESENT Electronically Signed On 06-22-2023 16:54:18 WAISTLINE JOINER OVERLOCK by Cameron Salas M.D.
[2023-06-21 20:47] LABS: Troponin I 0.447 ng/mL (0.000-0.034)
[2023-06-21] MEDS: MORPHINE SULFATE (*CRX) 4 MG/ML INJ IV PUSH (21:24)
[2023-06-21] MEDS: ASPIRIN 81 MG CHEWABLE TABLET 324 MG PO (21:58)
[2023-06-21] MEDS: METOPROLOL TARTRATE INJ 5 MG/5 ML VIAL IV PUSH (21:58)
[2023-06-21] MEDS: HEPARIN SOD/D5W 100 UNITS/ML 25,000 UNITS/250 ML BAG 10 UNITS IV CONT (22:21)
--- NOTE | 2023-06-21 22:26 | PM.IMHP ---
H&P: HPI History of Present Illness Date/Time: 06/21/23 22:26 Chief Complaint: Chest pain Narrative: This is a 62-year-old male with past medical history significant for coronary artery disease, cardiomyopathy, systolic heart failure, substance abuse, atrial fibrillation, type diabetes mellitus, peripheral diabetic neuropathy, chronic pain syndrome, chronic respiratory failure with hypoxia on home oxygen, obstructive sleep apnea, obesity. Patient presents to the emergency room due to chest pain while walking in the parking lot localized to the retrosternal area with radiation to the jaw 0 now patient is localized to the back in the interscapular area. She he is rating his pain a 7/10 in intensity relieved by nitro. Patient has been in his usual state of health up until this point denies any chest pain prior to today, no lightheadedness, no dizziness, no nausea, no vomiting, no abdominal pain, no syncope or near syncope, no fevers, no rigors, no chills. Preliminary workup was significant for elevated troponin. Patient has been admitted for further evaluation management and treatment. EXAMINATION: XR chest 2V DATE: 06/21/2023 16:39 INDICATION: Chest pain TECHNIQUE: AP and lateral views of the chest are obtained. COMPARISON: 01/17/2023 FINDINGS: The lungs are free of acute opacities. No pleural effusion or pneumothorax. The cardiomediastinal silhouette is normal. There is moderate thoracic spondylosis. There are changes of prior cardiac surgery. IMPRESSION: 1. Cardiomegaly. EXAMINATION: CT brain wo con DATE: 06/21/2023 17:58 INDICATION: Headache TECHNIQUE: Computed tomography (CT) of the head was performed without intravenous contrast. Sagittal and coronal reconstructions were performed. The mA was adjusted according to patient size. Iterative reconstruction technique was employed. The dose-length product was 715.88 mGy-cm. COMPARISON: head CT dated 01/17/2023 FINDINGS: Chronic arachnoid cyst measuring approximately 4.4 x 2.4 cm and middle cranial fossa anterior to the left temporal lobe. Stable appearance of an old infarct involving the left temporoparietal region and the left insula. No acute intracranial hemorrhage, acute infarction or abnormal extra axial fluid collection. Ventricles are normal and symmetric. No mass/mass effect. Mucosal thickening the posterior right ethmoid sinus and a retention cyst in the left sphenoid sinus. There is also a small osteoma in the posterior left ethmoid sinus. The orbits and mastoid air cells are normal. IMPRESSION: 1. Old infarct in the left temporoparietal region and left insula. No acute intracranial process. EXAMINATION: CTA chest DATE: 06/21/2023 20:49 INDICATION: Generalized chest pain TECHNIQUE: Computed tomographic angiography (CTA) of the chest was performed without and with 100 mL Omnipaque-350 intravenous contrast. Volume-rendered 3D-reconstructions of the aorta and large arteries were constructed by the technologist on a separate workstation. Automated exposure control and iterative reconstruction technique were employed. The dose-length product was 978.52 mGy-cm. COMPARISON: 03/27/2021 FINDINGS: Multiple bilateral calcified pulmonary nodules and calcified mediastinal and bilateral hilar lymph nodes and several scattered small hepatic and splenic calcifications, all consistent with old granulomatous disease. No pneumonia, pulmonary edema or pleural effusion. Heart size is normal with left atrial enlargement. Atherosclerotic coronary artery calcifications. Postoperative change of prior median sternotomy and coronary artery bypass grafting. Thoracic aorta is normal in caliber with no dissection. Although not performed as a pulmonary embolism protocol there is relatively good contrast opacification of the central pulmonary arteries demonstrating no pulmonary arterial embolism through at least the segmental pulmonary arteries. No significant change in a multinodular No pathologi
[2023-06-21 22:44] LABS: INR 0.9; Partial Thromboplastin Time 24.8 SECONDS (22.3-36.8); Prothrombin Time 12.7 Seconds (11.1-14.7)
[2023-06-21] MEDS: INSULIN HUMAN REGULAR (*BKC) 100 UNITS/ML 6 UNITS IV PUSH (23:47)
[2023-06-21 23:49] LABS: Glucose Point of Care 309 mg/dl (65-105)
[2023-06-22] VITALS (79 sets, daily range): BP systolic 96–145; BP diastolic 48–120; PULSE 74–177; RESP 11–26; TEMP 36.4–36.9; O2SAT 90–100; BMI 38.1
--- NOTE | 2023-06-22 | ECHO_ITS ---
Patient Info Name: John Peters Age: 62 years : 1960 Gender: Male Ht: 68 in Wt: 253 lbs BSA: 2.40 m2 HR: 129 bpm BP: 120 / 108 mmHg Heart Rhythm: Atrial Fibrillation Technical Quality: Poor Exam Date: 06/22/2023 10:31 AM Exam Location: Echo Lab Patient Status: Outpatient Admit Date: 06/21/2023 Staff Ordering Physician: Sylvie Giron MD Nurse Receptionist: Martell Lamb RDCS Attending Provider: Sylvie Giron MD Referring Physician: Mack COURTNEY; Exam Type: CA echo dop color flow w con Study Info Indications - CHEST PAIN/ A-FIB Complete two-dimensional, color flow and Doppler transthoracic echocardiogram is performed with contrast to opacify the left ventricle and to improve the deliniation of the left ventricle endocardial borders. Contrast/Agitated Saline Contrast/Ag. Saline: Definity Amount: 3.00 ml Reason for Poor Study: poor echocardiographic windows Summary 1. Left ventricular chamber dimension is normal. 2. Left ventricular systolic function is mildly reduced, estimated at 45-50%. 3. There is moderately increased left ventricular wall thickness. 4. The left ventricular diastolic function is indeterminate. 5. Right ventricular chamber dimension is mildly enlarged. 6. Right ventricular systolic function is reduced. 7. Left atrial chamber dimension is mildly enlarged. 8. There is mild aortic valve calcification. 9. There is mild to moderate mitral valve regurgitation. 10. There is mild tricuspid valve regurgitation. 11. Poor echocardiographic study with limited useful information due to poor windows and his AFib with RVR. Wall motion abnormalities cannot be excluded. Recommend repeat study when heart rate is better controlled. Left Ventricle Left ventricular chamber dimension is normal. Left ventricular systolic function is mildly reduced, estimated at 45-50%. There is moderately increased left ventricular wall thickness. The left ventricular diastolic function is indeterminate. Right Ventricle Right ventricular chamber dimension is mildly enlarged. Right ventricular systolic function is reduced. Left Atria Left atrial chamber dimension is mildly enlarged. Right Atria Right atrial chamber dimension is normal. Aortic Valve The aortic valve is probable trileaflet. There is no aortic valve stenosis. There is trace aortic valve regurgitation. There is mild aortic valve calcification. Pulmonic Valve The pulmonic valve is normal. There is no pulmonic valve stenosis. There is trace pulmonic regurgitation. Mitral Valve The mitral valve has calcified annulus. There is no mitral valve stenosis. There is mild to moderate mitral valve regurgitation. Tricuspid Valve The tricuspid valve leaflets are normal. There is no significant tricuspid valve stenosis. There is mild tricuspid valve regurgitation. No pulmonary hypertension, estimated pulmonary arterial systolic pressure is 21 mmHg. Other Findings Poor echocardiographic study with limited useful information due to poor windows and his AFib with RVR. Wall motion abnormalities cannot be excluded. Recommend repeat study when heart rate is better controlled. Pericardium/Pleural The pericardium appears normal. There is no pericardial effusion. Aorta The aortic root size at the sinus of Valsalva is normal. There is mild aortic atherosclerosis. Left Ventricular Outflow Tract Name Value Normal
[2023-06-22 00:04] LABS: Hemoglobin A1C 8.4 % (<5.7)
[2023-06-22 00:59] LABS: Glucose Point of Care 251 mg/dl (65-105)
[2023-06-22] MEDS: HYDROmorphone HCL INJ (*CRX) 1 MG/ML SYR IV PUSH ×2 (01:02→04:53)
[2023-06-22 04:34] LABS: Basophils Percent Auto 0.4 % (0.2-1.2); Eosinophils Absolute Auto 0.2 K/mm3 (0-0.3); Eosinophils Percent Auto 1.9 % (0-4.4); Hematocrit 43.6 % (42.0-52.0); Immature Granulocyte Absolute 0.03 K/mm3 (0.00-0.031); Immature Granulocyte Percent A 0.3 % (0-0.5); Lymphocytes Percent Auto 13.4 % (18.3-44.2); Mean Corpuscular HGB Conc 32.1 g/dl (32-36); Mean Corpuscular Hemoglobin 29.3 pg (26-34); Mean Corpuscular Volume 91.2 fl (80-100); Mean Platelet Volume 9.6 fl (7.4-10.4); Monocytes Percent Auto 9.1 % (2.6-8.5); Neutrophils Absolute Auto 7.8 K/mm3 (1.3-6.7); Neutrophils Percent Auto 74.9 % (45.5-73.1); Platelet Count Result 171 k/mm3 (150-375); Red Blood Count 4.78 M/mm3 (4.6-6.20); Red Cell Distribution Width 14.4 % (11.5-14.5); White Blood Count 10.4 K/mm3 (4.5-10.0)
[2023-06-22 04:37] LABS: Partial Thromboplastin Time 32.3 SECONDS (22.3-36.8)
[2023-06-22] MEDS: HEPARIN SODIUM 5,000 UNITS/ML VIAL 4000 UNITS IV PUSH ×3 (05:14→17:16)
--- NOTE | 2023-06-22 06:54 | PC.NURSE ---
Pt sleeping. O2 sats dropping to 88%. 2L NC placed on pt. Improved sats to 97%.
--- NOTE | 2023-06-22 07:05 | PC.NURSE ---
Report to KENYA Macedo
--- NOTE | 2023-06-22 08:39 | ECG_ITS ---
Measurements Intervals [place] Rate: 159 P: MD: 0 QRS: 118 QRSD: 100 T: -36 QT: 260 QTc: 424 Interpretive Statements ATRIAL FIBRILLATION WITH RAPID VENTRICULAR RESPONSE POSSIBLE RIGHT VENTRICULAR HYPERTROPHY [SOME/ALL OF: PROMINENT R IN V1, LATE TRANSITION, RAD, CRISSY, SSS] MODERATE ST DEPRESSION [0.05+ mV ST DEPRESSION] ABNORMAL QRS-T ANGLE [QRS-T AXIS DIFFERENCE > 60] ABNORMAL ECG COMPARED TO ECG 06/21/2023 20:14:25 NO SIGNIFICANT CHANGES Electronically Signed On 06-22-2023 17:00:37 BARREL CHARRER HELPER by Cameron Salas M.D.
[2023-06-22] MEDS: NITROGLYCERIN SL 0.4 MG TABLET SUBLINGUAL (08:45)
[2023-06-22] MEDS: dilTIAZem 100 MG/100 ML 100 MG/100 ML BAG IV CONT (09:00)
[2023-06-22] MEDS: dilTIAZem HCl INJ 25 MG/5 ML VIAL 20 MG IV PUSH (09:03)
[2023-06-22 09:04] LABS: Glucose Point of Care 315 mg/dl (65-105)
[2023-06-22] MEDS: INSULIN ASPART (*BKC) 100 UNITS/ML SUB-Q ×4 (09:08→22:06)
--- NOTE | 2023-06-22 09:10 | PC.NURSE ---
Kashmir Bonilla NP in to evaluate pt.
--- NOTE | 2023-06-22 09:17 | PC.NURSE ---
at 0845 pt has c/o sunsternal chest pain radiating to left jaw and into back. ERP gave verbal order to give SL nitro. Hospitalist Kashmir called by SB,RN, charge nurse and new orders given to start cardizem and give bolus. Hospitalist came to evaluate pt in the ED.
--- NOTE | 2023-06-22 09:59 | PC.NURSE ---
pt resting on cot and reports pain in chest has resolved. Pt resting on cot wanting to nap
[2023-06-22 10:37] LABS: Partial Thromboplastin Time 36.8 SECONDS (22.3-36.8)
[2023-06-22 10:48] LABS: Alanine Aminotransferase 29 U/L (6-50); Alkaline Phosphatase 121 U/L (38-126); Anion Gap 8 mmol/L (8-16); Aspartate Amino Transferase 74 U/L (17-59); Bilirubin,Total 0.6 mg/dL (0.2-1.3); Blood Urea Nitrogen 15 mg/dL (9-20); Calcium 8.8 mg/dL (8.4-10.2); Carbon Dioxide 31 mmol/L (22-30); Chloride 98 mmol/L (98-107); Estimated CRCL calculation 101 ml/min; Estimated Glomerular Filt Rate > 60; Glucose 292 mg/dL (65-110); Magnesium 2.3 mg/dL (1.6-2.3); Potassium 4.2 mmol/L (3.4-5.0); Sodium 137 mmol/L (137-145)
--- NOTE | 2023-06-22 10:49 | PM.IMPN ---
Progress Note: A&P Assessment and Plan (1) Non-ST elevation [place] (NSTEMI): Code(s): I21.4 - Non-ST elevation (NSTEMI) myocardial infarction Status: Acute Assessment and Plan: Admit to IMU Patient is on heparin drip Morphine oxygen nitro aspirin-- patient reports itching with morphine and prefers Dilaudid instead Cardiology consult 06/22: Trop increased over 7, Cardiology to take to laboratory technologist tomorrow (2) Atrial fibrillation with RVR: Code(s): I48.91 - Unspecified atrial fibrillation Status: Acute Assessment and Plan: 06/22: Heparin drip, hold Eliquis until cleared by Cardiology. Diltiazem started but discontinued by Cardiology. (3) Essential hypertension: Code(s): I10 - Essential (primary) hypertension Status: Acute Assessment and Plan: Restart home meds. Blood pressure reviewed (4) Chronic systolic heart failure: Code(s): I50.22 - Chronic systolic (congestive) heart failure Status: Acute Assessment and Plan: Restart home meds, Monitor daily intake and output, Will obtain echocardiogram in the morning 06/22: Echo ordered (5) Cardiomyopathy: Qualifiers: Cardiomyopathy type: unspecified Qualified Code(s): I42.9 - Cardiomyopathy, unspecified Code(s): I42.9 - Cardiomyopathy, unspecified Status: Acute Assessment and Plan: Echocardiogram (6) HERNAN (obstructive sleep apnea): Code(s): G47.33 - Obstructive sleep apnea (adult) (pediatric) Status: Acute Assessment and Plan: Currently on oxygen by nasal cannula (7) Chronic pain syndrome: Code(s): G89.4 - Chronic pain syndrome Status: Chronic Assessment and Plan: Continue home meds, history of substance abuse (8) Respiratory failure with hypoxia: Qualifiers: Chronicity: acute on chronic Qualified Code(s): J96.21 - Acute and chronic respiratory failure with hypoxia Code(s): J96.91 - Respiratory failure, unspecified with hypoxia Status: Acute Assessment and Plan: On supplemental oxygen by nasal cannula, 2 liters/minute at home baseline for COPD (9) H/O: substance abuse: Code(s): F19.11 - Other psychoactive substance abuse, in remission Status: Acute Assessment and Plan: Judicious narcotic monitoring Plan Patient is boarded in the ER due to no available IMU beds Time Spent With Patient Time with patient: Greater than 35 minutes Subjective Date/time seen: 06/22/23 08:49 Interval history: H&P 06/21: This is a 62-year-old male with past medical history significant for coronary artery disease, cardiomyopathy, systolic heart failure, substance abuse, atrial fibrillation, type diabetes mellitus, peripheral diabetic neuropathy, chronic pain syndrome, chronic respiratory failure with hypoxia on home oxygen, obstructive sleep apnea, obesity.? Patient presents to the emergency room due to chest pain while walking in the parking lot localized to the retrosternal area with radiation to the jaw 0 now patient is localized to the back in the interscapular area.? She he is rating his pain a 7/10 in intensity relieved by nitro.? Patient has been in his usual state of health up until this point denies any chest pain prior to today, no lightheadedness, no dizziness, no nausea, no vomiting, no abdominal pain, no syncope or near syncope, no fevers, no rigors, no chills.? Preliminary workup was significant for elevated troponin.? Patient has been admitted for further evaluation management and treatment. Cardiology Consult 06/22: John Peters is a 62-year-old male with past medical history of CVA, hearing loss, persistent atrial fibrillation, history of AFib ablation, history of CABG and mitral valve repair about 12 years ago, COPD on home oxygen, hypertension, diabetes, hyperthyroidism, and chronic pain.? He comes to the hospital with a chief complaint of chest pain.? He states that yesterday while he was unl
[2023-06-22] MEDS: PERFLUTREN LIPID MICROSPHERES 1.5 ML VIAL DILUTED TO 10 ML TOTAL VOLUME IV PUSH (11:00)
--- NOTE | 2023-06-22 11:25 | PM.CNCAR ---
Assessment and Plan Assessment and plan (1) Non-ST elevation [place] (NSTEMI): Code(s): I21.4 - Non-ST elevation (NSTEMI) myocardial infarction Status: Acute Assessment and Plan: Presents with midsternal chest pain with radiation to neck and jaw. He does have elevated troponin levels concerning for and consistent with ACS. Continue heparin drip Continue ASA, statin Recommend coronary angiogram, however, he is on apixaban and took dose 12/11 a.m., so unable to proceed with cath until tomorrow p.r.n. nitro repeat EKG (2) Atrial fibrillation: Qualifiers: Atrial fibrillation type: unspecified Qualified Code(s): I48.91 - Unspecified atrial fibrillation Code(s): I48.91 - Unspecified atrial fibrillation Status: Acute Assessment and Plan: history of persistent atrial fibrillation now presents in atrial fibrillation with rapid ventricular response. Remains in RVR on a diltiazem drip. Will discontinue diltiazem drip as he is known to have reduced LV systolic function resume his home metoprolol, 100 mg p.o. b.i.d.. Give 1st dose now Metoprolol IV p.r.n. Continue heparin for anticoagulation for now (3) Chronic systolic heart failure: Code(s): I50.22 - Chronic systolic (congestive) heart failure Status: Acute (4) Chest pain: Code(s): R07.9 - Chest pain, unspecified Status: Acute (5) Coronary artery disease: Onset Date: ~2001 Code(s): I25.10 - Atherosclerotic heart disease of [place] coronary artery without angina pectoris Status: Acute Assessment and Plan: As above, plan for [facility] tomorrow History of Present Illness History of Present Illness Consult date/time: 06/22/23 11:25 Consult reason: atrial fibrillation Reason For Visit: NSTEMI/Afib Narrative: John Peters is a 62-year-old male with past medical history of CVA, hearing loss, persistent atrial fibrillation, history of AFib ablation, history of CABG and mitral valve repair about 12 years ago, COPD on home oxygen, hypertension, diabetes, hyperthyroidism, and chronic pain. He comes to the hospital with a chief complaint of chest pain. He states that yesterday while he was unloading groceries he developed midsternal chest pain that radiated up to his neck, jaw, and in between his shoulder blades. the chest pain has been constant since yesterday with waxing waning intensity. On evaluation in the emergency department was noted to be in atrial fibrillation with rapid ventricular response. His workup has also been significant for elevated troponin levels of 0.447, 1.210, and 7.110. Chest pain has improved with sublingual nitroglycerin but has not completely resolved. He is currently on a heparin drip. Prior to yesterday's onset of chest pain he has been feeling very well and has not experienced any angina, shortness of breath above his baseline, palpitations. At the time of my evaluation he is sitting comfortably in a chair and does have ongoing chest pain that he rates as mild, 3/10. Review of Systems Constitutional: Constitutional: Denies chills, Denies fever(s), Denies headache(s) and Denies malaise Eyes: Eyes: Denies change in vision ENT: Reports Normal hearing present, Denies dizziness, Denies headache(s) and Denies hearing loss Cardiovascular: Cardiovascular: Reports chest pain, Reports chest pain at rest, Denies chest pain with activity, Denies syncope, Denies leg edema, Denies palpitations, Reports dyspnea and Denies dyspnea on exertion Respiratory: Respiratory: Denies cough, Denies dyspnea, Denies dyspnea on exertion and Denies wheezing Gastrointestinal: Gastrointestinal: Denies abdominal pain, Denies constipation and Denies diarrhea Genitourinary: Genitourinary: Denies hematuria and Denies dysuria Musculoskeletal: Musculoskeletal: Reports back pain, Denies myalgias, Denies arthralgias, Denies muscle cramps and Reports neck pain Integumentary/Breasts:
--- NOTE | 2023-06-22 11:39 | ECG_ITS ---
Measurements Intervals [place] Rate: 95 P: OR: 0 QRS: 87 QRSD: 97 T: 40 QT: 323 QTc: 406 Interpretive Statements ATRIAL FIBRILLATION ABNORMAL ECG COMPARED TO ECG 06/22/2023 08:44:09 NO SIGNIFICANT CHANGES Electronically Signed On 06-23-2023 10:33:20 MEASUREMENT PSYCHOLOGIST by Cameron Salas M.D.
--- NOTE | 2023-06-22 11:50 | PC.NURSE ---
cardizem stopped per order to DC
--- NOTE | 2023-06-22 12:14 | PC.NURSE ---
medication list reviewed with pt's brother and he confirmed pt's daily meds
[2023-06-22 12:53] LABS: Glucose Point of Care 297 mg/dl (65-105)
[2023-06-22] MEDS: METOPROLOL TARTRATE 50 MG TAB 100 MG PO ×2 (13:15→22:07)
[2023-06-22 13:26] LABS: Glucose Point of Care 284 mg/dl (65-105)
[2023-06-22] MEDS: DULoxetine HCL 60 MG CAPSULE.DR PO (13:51)
[2023-06-22] MEDS: POTASSIUM CHLORIDE 20 MEQ ER TABLET 40 MEQ PO ×2 (13:51→22:07)
[2023-06-22] MEDS: DIGOXIN 250 MCG TABLET PO (13:51)
[2023-06-22] MEDS: EMPAGLIFLOZIN 25 MG TABLET PO (13:51)
[2023-06-22] MEDS: oxyCODONE HCL (*CRX) 5 MG TAB IR PO ×2 (16:08→22:08)
[2023-06-22 16:45] LABS: Magnesium 2.7 mg/dL (1.6-2.3)
[2023-06-22 16:50] LABS: Partial Thromboplastin Time 53.2 SECONDS (22.3-36.8)
--- NOTE | 2023-06-22 17:08 | PC.NURSE ---
reports pain has improved, now rating pain 5/10
[2023-06-22 17:11] LABS: Glucose Point of Care 246 mg/dl (65-105)
[2023-06-22 17:13] LABS: Digoxin 1.2 ng/mL (0.8-2.0)
[2023-06-22] MEDS: BUMETANIDE 1 MG TABLET 2 MG PO (18:14)
--- NOTE | 2023-06-22 20:40 | PC.NURSE ---
This RN was not notified of pt receiving bed.
--- NOTE | 2023-06-22 21:22 | ADMGEN ---
2109 This patient, John Peters, was admitted to IMU Room 212-01. Patient/family oriented to hospital policies and general routines including ID bracelet, bed and alarms, visiting hours, pain management, procedures, bathroom and other care routines, personal items, smoking policy, room service/diet, and visiting hours. Information on how to activate the Rapid Response Team has been discussed. Patient/Family are encouraged to report perceived risks to care and to ask questions if they do not understand what they are told or what they should do.
[2023-06-22 21:40] LABS: Glucose Point of Care 232 mg/dl (65-105)
--- NOTE | 2023-06-22 21:49 | PC.NURSE ---
Patient on heparin at 19ml/hr upon arrival to IMU. Heparin appears to be infused on the SEP. RN will consult with provider for further instructions.
[2023-06-22] MEDS: HEPARIN SOD/D5W 100 UNITS/ML 25,000 UNITS/250 ML BAG 19 UNITS IV CONT (21:54)
[2023-06-22] MEDS: traZODone HCL 50 MG TABLET PO (22:07)
[2023-06-22] MEDS: ATORVASTATIN 40 MG TABLET PO (22:07)
[2023-06-22] MEDS: DICLOFENAC SODIUM 1% 100 GM GEL (*BKC) 1 APPLIC TOPICAL (22:08)
[2023-06-23] VITALS (27 sets, daily range): BP systolic 92–119; BP diastolic 51–91; PULSE 85–122; RESP 12–20; TEMP 36.2–37.1; O2SAT 92–100
[2023-06-23 00:04] LABS: Partial Thromboplastin Time 67.6 SECONDS (22.3-36.8)
[2023-06-23] MEDS: HEPARIN SODIUM 5,000 UNITS/ML VIAL 3500 UNITS IV PUSH (00:16)
--- NOTE | 2023-06-23 02:45 | PC.NURSE ---
0240: RN and CCT, Sailaja, to bedside in response to bed alarm. Patient found outside of the bed. Patient was asked what he was doing and was reminded that he wasn't supposed to get out of bed on his own. Patient became verbally aggressive with staff stating Don't do that! Do not repeat to me! I understand! RN reminded the patient of the risks of falling while on a heparin drip. Patient continued to be confrontational. RN stated that if the patient continued to behave this way towards staff security would be called. Patient stated Go ahead. Call them. At the direction of RICH Andujar, patient turned around and sat on bed. Patient allowed Con to provide care. Bed alarm set. Care continues.
[2023-06-23] MEDS: oxyCODONE HCL (*CRX) 5 MG TAB IR PO ×2 (05:35→13:57)
[2023-06-23] MEDS: POTASSIUM CHLORIDE 20 MEQ ER TABLET 40 MEQ PO ×3 (05:35→21:20)
[2023-06-23] MEDS: HEPARIN SOD/D5W 100 UNITS/ML 25,000 UNITS/250 ML BAG 21 UNITS IV CONT (05:37)
[2023-06-23 07:38] LABS: Partial Thromboplastin Time 108.6 SECONDS (22.3-36.8)
[2023-06-23 07:40] LABS: Basophils Absolute Auto 0.1 K/mm3 (0.0-0.1); Basophils Percent Auto 0.5 % (0.2-1.2); Eosinophils Absolute Auto 0.1 K/mm3 (0-0.3); Hematocrit 44.2 % (42.0-52.0); Hemoglobin 13.8 g/dL (14.0-18.0); Immature Granulocyte Absolute 0.05 K/mm3 (0.00-0.031); Immature Granulocyte Percent A 0.4 % (0-0.5); Lymphocytes Absolute Auto 0.97 K/mm3 (0.9-3.2); Lymphocytes Percent Auto 8.6 % (18.3-44.2); Mean Corpuscular HGB Conc 31.2 g/dl (32-36); Mean Corpuscular Hemoglobin 29.2 pg (26-34); Mean Corpuscular Volume 93.6 fl (80-100); Mean Platelet Volume 9.9 fl (7.4-10.4); Monocytes Percent Auto 9.2 % (2.6-8.5); Neutrophils Percent Auto 80.3 % (45.5-73.1); Platelet Count Result 159 k/mm3 (150-375); Red Blood Count 4.72 M/mm3 (4.6-6.20); Red Cell Distribution Width 14.9 % (11.5-14.5); White Blood Count 11.3 K/mm3 (4.5-10.0)
[2023-06-23 07:47] LABS: Alanine Aminotransferase 33 U/L (6-50); Albumin Level 3.9 g/dL (3.5-5.1); Alkaline Phosphatase 112 U/L (38-126); Anion Gap 5 mmol/L (8-16); Aspartate Amino Transferase 86 U/L (17-59); Bilirubin,Total 1.1 mg/dL (0.2-1.3); Blood Urea Nitrogen 15 mg/dL (9-20); Calcium 8.5 mg/dL (8.4-10.2); Carbon Dioxide 32 mmol/L (22-30); Chloride 99 mmol/L (98-107); Estimated CRCL calculation 101 ml/min; Estimated Glomerular Filt Rate > 60; Glucose 190 mg/dL (65-110); Magnesium 2.3 mg/dL (1.6-2.3); Potassium 4.3 mmol/L (3.4-5.0); Sodium 136 mmol/L (137-145)
[2023-06-23 09:01] LABS: Glucose Point of Care 218 mg/dl (65-105)
[2023-06-23] MEDS: METOPROLOL TARTRATE 50 MG TAB 100 MG PO ×2 (09:29→20:51)
--- NOTE | 2023-06-23 09:40 | PM.PNCARD ---
Progress Note: A&P Assessment and Plan (1) Non-ST elevation [place] (NSTEMI): Code(s): I21.4 - Non-ST elevation (NSTEMI) myocardial infarction Status: Acute Assessment and Plan: Cardiac catheterization recommended and discussed with the patient. I discussed the indications for the procedure, procedure details, risks vs benefits, alternative management options of medical therapy only, post procedure care. Patient agreeable to proceed. Will plan for cardiac catheterization today. Patient to remain NPO for procedure. I had a lengthy discussion with the patient's brother, Alton as well. Alton also agrees with cardiac catheterization, but he informs me that John has had issues with intermittent aggressiveness/combativeness event at home. I did discuss with Alton that if we have issues with aggressiveness/combativeness then we may need to cancel cardiac catheterization due to increased risks and complications. Alton expressed understanding. Alton also mentions that he does not think John has been taking his medications and has had issues being compliant with them. I discussed with Alton that if John cannot be compliant with medications, then we would not be able to proceed with PCI if needed due to risks of stent thrombosis due to noncompliance with DAPT therapy. Alton expressed understanding and agreed as well. (2) Atrial fibrillation with RVR: Code(s): I48.91 - Unspecified atrial fibrillation Status: Acute Assessment and Plan: Continue Digoxin (Digoxin level is therapeutic). Continue Metoprolol 100mg BID. Patient's brother Alton reports John has issues with medication compliance, RVR may be contributed from not taking his medications at home. Will continue to monitor on tele for now. If he has issues with RVR, then may need to consider additional therapy. Given reduced LVEF, would consider Amiodarone. (3) H/O: substance abuse: Code(s): F19.11 - Other psychoactive substance abuse, in remission Status: Acute Assessment and Plan: Patient's brother Alton tells me that he is concerned John has been abusing narcotics currently. (4) Coronary artery disease: Onset Date: ~2001 Code(s): I25.10 - Atherosclerotic heart disease of [place] coronary artery without angina pectoris Status: Acute Assessment and Plan: As above, (5) Chronic systolic heart failure: Code(s): I50.22 - Chronic systolic (congestive) heart failure Status: Acute Assessment and Plan: Stable. Continue PO Bumex, Jardiance, Metoprolol, Digoxin. Will need to switch Metoprolol tartrate to succinate prior to discharge. Will stop tartrate tonight and start succinate tomorrow morning. (6) Mixed hyperlipidemia: Code(s): E78.2 - Mixed hyperlipidemia Status: Chronic Assessment and Plan: Continue statin. Subjective Date/time seen: 06/23/23 09:40 Interval history: Reason for visit: Atrial fibrillation with RVR, NSTEMI HPI: John Peters is a 62-year-old male with past medical history of CVA, hearing loss, persistent atrial fibrillation, history of AFib ablation, history of CABG and mitral valve repair about 12 years ago, COPD on home oxygen, hypertension, diabetes, hyperthyroidism, and chronic pain.? He comes to the hospital with a chief complaint of chest pain.? He states that yesterday while he was unloading groceries he developed midsternal chest pain that radiated up to his neck, jaw, and in between his shoulder blades. ? The chest pain has been constant since yesterday with waxing waning intensity.? On evaluation in the emergency department was noted to be in atrial fibrillation with rapid ventricular response.? His workup has also been significant for elevated troponin levels of 0.447, 1.210, and 7.110.? Chest pain has improved with sublingual nitroglycerin but has not completely resolved.? He is currently on a heparin drip.? Prior to yesterday's onset of chest pain he has been feeling
--- NOTE | 2023-06-23 09:44 | PC.NURSE ---
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
--- NOTE | 2023-06-23 11:00 | WPDMODSED ---
Moderate Sedation Note-Pt Data Patient Data Diagnosis: NSTEMI Present Complaint: NSTEMI Procedure to be performed/Plan: Coronary angiography, left heart cath, bypass graft angiography, +/- PCI Allergies Allergy/AdvReac Type Severity Reaction Status Date / Time morphine AdvReac Unknown Increased Verified 06/22/23 12:57 HR Home Medications Medication Instructions Recorded Confirmed Type metformin 500 mg tablet 1,000 mg PO Q12H #360 tabs 04/17/22 06/22/23 Rx blood sugar diagnostic (Accu-Chek #100 ea 06/09/22 06/22/23 Rx Delores Plus test strips) blood-glucose meter (Accu-Chek #1 ea 06/09/22 06/22/23 Rx Delores Plus Meter) lancets (Accu-Chek Softclix #100 ea 06/09/22 06/22/23 Rx Lancets) apixaban 5 mg tablet (Eliquis) 5 mg PO BID #180 tabs 06/11/22 06/22/23 Rx empagliflozin 25 mg tablet 25 mg PO DAILY #90 tabs 07/20/22 06/22/23 Rx (Jardiance) ipratropium 0.5 mg-albuterol 3 mg 3 ml inhalation QID PRN shortness 07/20/22 06/22/23 Rx (2.5 mg base)/3 mL nebulization of breath or wheezing #90 mL soln atorvastatin 40 mg tablet 40 mg PO QHS #90 tabs 09/24/22 06/22/23 Rx metoprolol tartrate 100 mg tablet 100 mg PO BID 10/27/22 06/22/23 History oxycodone 5 mg tablet 5 mg PO Q4H PRN pain #60 tabs 11/12/22 06/22/23 Rx bumetanide 1 mg tablet 2 mg PO BID 30 days #60 tabs 11/20/22 06/22/23 Rx digoxin 250 mcg (0.25 mg) tablet 250 mcg PO QAM 30 days #30 tabs 11/20/22 06/22/23 Rx (Digitek) duloxetine 60 mg capsule,delayed 60 mg PO QAM #30 caps 12/02/22 06/22/23 Rx release artificial tears with lanolin eye 1 applic EACH EYE Q1-4H PRN Dry 01/17/23 06/22/23 History ointment Eyes potassium chloride 20 mEq 40 meq PO TID 01/17/23 06/22/23 History tablet,extended release(part/cryst) trazodone 50 mg tablet 50 mg PO HS 01/17/23 06/22/23 History semaglutide 14 mg tablet (Rybelsus) See Rx Instructions .Route 02/22/23 06/22/23 Rx .COMPLEX #30 tabs diclofenac sodium 1 % topical gel See Rx Instructions .Route .COMPLEX 06/22/23 06/22/23 History Current Medications: Active Medications Albuterol (Albuterol Sulfate Neb 2.5 Mg/3 Ml Inh) 2.5 mg INHALATION QIDRT PRN PRN Reason: shortness of breath or wheezing Atorvastatin Calcium (Atorvastatin 40 Mg Tablet) 40 mg PO QHS [facility] Last Admin: 06/22/23 22:07 Dose: 40 mg Bumetanide (Bumetanide 1 Mg Tablet) 2 mg PO BID [facility] Last Admin: 06/22/23 18:14 Dose: 2 mg Clopidogrel Bisulfate (Clopidogrel Bisulfate 75 Mg Tablet) 75 mg PO [facility] Dextrose (Dextrose 50% 25 Gm/50 Ml Syringe) 12.5 gm IV PUSH PRN PRN; Protocol PRN Reason: Hypoglycemia Diclofenac Sodium (Diclofenac Sodium 1% 100 Gm Gel (*Bkc)) 1 applic TOPICAL [facility] Last Admin: 06/22/23 22:08 Dose: 1 applic Digoxin (Digoxin 250 Mcg Tablet) 250 mcg PO [facility] Last Admin: 06/22/23 13:51 Dose: 250 mcg Duloxetine HCl (Duloxetine Hcl 60 Mg Capsule.Dr) 60 mg PO [facility] Last Admin: 06/22/23 13:51 Dose: 60 mg Empagliflozin (Empagliflozin 25 Mg Tablet) 25 mg PO DAILY [facility] Last Admin: 06/22/23 13:51 Dose: 25 mg Glucagon (Glucagon For Inj 1 Mg Vial) 1 mg IM PRN PRN; Protocol PRN Reason: Hypoglycemia Glucose (Glucose Oral Gel 15 Gm Of Glucse In 37.5 Gm Tube) 15 gm PO PRN PRN; Protocol PRN Reason: Hypoglycemia Heparin Sodium (Porcine) (Heparin Sodium 5,000 Units/Ml Vial) 4,000 units IV PUSH PRN PRN PRN Reason: aPTT less than 55 seconds Last Admin: 06/22/23 17:16 Dose: 4,000 units Heparin Sodium (Porcine) (Heparin Sodium 5,000 Units/Ml Vial) 3,500 units IV PUSH PRN PRN PRN Reason: aPTT 55 - 70 seconds Last Admin: 06/23/23 00:16 Dose: 3,500 units Hydromorphone HCl (Hydromorphone Hcl Inj (*Crx) 1 Mg/Ml Syr) 1 mg IV PUSH Q4H PRN PRN Reason: Pain Rated 7-10 Last Admin: 06/22/23 04:53 Dose: 1 mg Heparin Sodium/Dextrose (Heparin Sodium/D5w 100 Units/Ml) 25,000 units in 250 mls @ 19 mls/hr IV CONT .[id number] [facility]; Protocol Last Titration: 06/23/23 09:29 Dose: 1,900 units/hr, 19 mls/hr Dex
--- NOTE | 2023-06-23 11:01 | WPDCARDPROC ---
Cardiac Cath Procedure Note Date of procedure:: 06/23/23 Performing physician:: CATHETERIZATION LABORATORY REPORT Procedure Date: 06/23/2023 Meatman: Sadi Carvajal M.D., [facility]? Referring Physician: Sadi Carvajal M.D. ? Anesthesia: Versed and Fentanyl were ordered and given in my presence at 10:06, procedure ended at 10:52. Supervision of nurse monitored moderate sedation with Versed and Fentanyl was provided for 46 minutes. Total of Versed 2mg and Fentanyl 75mcg were administered by the Glass Maker RN Mis Walton. Pre-op Diagnosis: Coronary artery disease s/p CABG Post-op Diagnosis: 1. Significant mid LAD disease. FEED MILL TENDER of the proximal LCX. The proximal-mid portion of the RCA has a moderate stenosis. There are well-formed right to left collaterals filling the LCX/OM system. 2. Patent GARSIA to LAD bypass graft 3. Occluded SVG bypass graft 4. No other bypass grafts visualized. 5. Left ventricular end-diastolic pressure of 21mmHg Procedure(s): 1. Moderate sedation 2. Ultrasound-guided access of the right common femoral artery 3. Coronary angiography 4. Bypass graft angiography 5. Left heart cath 6. Angioseal closure of the right common femoral artery Access Site: Right common femoral artery Brief History and Clinical Indications: Patient is a 62 year old male with CAD s/p CABG who is referred for [facility] for NSTEMI. All risks, benefits and alternatives to left heart catheterization with or without percutaneous coronary intervention was discussed at length with the patient. Risk of complications including but not limited to bleeding, infection, arrhythmia, stroke, worsening kidney function, blood loss, groin hematoma, limb loss, emergency coronary artery bypass grafting, and even were discussed with the patient and all questions were answered. The patient understood and wished to proceed. Time out called, patient name, date of , medical record number, allergies, procedure performed, identify Meatman, patient and staff member concurred with accurate data, procedure carried on. Findings: LEFT HEART CATHETERIZATION FINDINGS: 1. Left main: The left main coronary artery is widely patent without any significant obstructive disease. 2. Left anterior descending: The proximal LAD has mild 40-50% stenosis. The mid LAD has a moderate borderline stenosis followed by 90-99% stenoses. Competitive filling is seen in the distal LAD. 3. Left circumflex: The left circumflex artery is FEED MILL TENDER in its proximal portion. There is a small caliber OM branch that is diffusely diseased. 4. Right coronary artery: The RCA is the dominant vessel. The proximal-mid portion has a moderate stenosis. Remainder of the RCA has mild diffuse disease. There are well-formed right to left collaterals filling the LCX/OM system. 5. Left ventricle: A. End-diastolic pressure 21 mmHg. B. LV gram deferred. C. No significant gradient across aortic valve on catheter pullback. 6. Bypass graft angiography A. Patent GARSIA to LAD bypass graft B. Occluded SVG bypass graft C. No other bypass grafts visualized Description of Procedure: Informed consent signed and placed in the chart. Patient transferred to freezer laboratory technician room. Prepped and draped in usual sterile fashion. 2% lidocaine in right groin area. Micropuncture needle used to access right common femoral artery with Seldinger technique under fluoroscopic and ultrasound guidance. J wire advanced, micropuncture cannula placed. Right iliofemoral angiogram performed, access confirmed and micropuncture cannula exchanged for 5-FR sheath. 5F FL 4 diagnostic catheter engaged Left Main Coronary Artery. 5F FR 4 diagnostic catheter engaged Right Coronary Artery. 5F FR 4 diagnostic catheter engaged in the occluded SVG bypass graft. 5F IM diagnostic catheter used to obtain non-selective angios of the GARSIA bypass graft (GARSIA difficult to engage). Multiple orthogonal angiogram obtained and reviewed. 5F [place]
--- NOTE | 2023-06-23 11:58 | PM.IMPN ---
Progress Note: A&P Assessment and Plan (1) Non-ST elevation NM (NSTEMI): Code(s): I21.4 - Non-ST elevation (NSTEMI) myocardial infarction Status: Acute Assessment and Plan: Admit to IMU Patient is on heparin drip Morphine oxygen nitro aspirin-- patient reports itching with morphine and prefers Dilaudid instead Cardiology consult 06/22: Trop increased over 7, Cardiology to take to laborer bituminous paving tomorrow 06/23: laborer bituminous paving today, no intervention (2) Atrial fibrillation with RVR: Code(s): I48.91 - Unspecified atrial fibrillation Status: Acute Assessment and Plan: 06/22: Heparin drip, hold Eliquis until cleared by Cardiology. Diltiazem started but discontinued by Cardiology. 06/23: post cardiac catheterization Dr. Carvajal recommends stop heparin and restart Eliquis tomorrow morning (3) Essential hypertension: Code(s): I10 - Essential (primary) hypertension Status: Acute Assessment and Plan: Restart home meds. Blood pressure reviewed 06/23, borderline low likely due to rate control medications (4) Chronic systolic heart failure: Code(s): I50.22 - Chronic systolic (congestive) heart failure Status: Acute Assessment and Plan: Restart home meds, Monitor daily intake and output, Will obtain echocardiogram in the morning 06/22: Echo ordered 06/23: EF 45-50% with mildly increased ventricular wall thickness, diastolic function indeterminate (5) Cardiomyopathy: Qualifiers: Cardiomyopathy type: unspecified Qualified Code(s): I42.9 - Cardiomyopathy, unspecified Code(s): I42.9 - Cardiomyopathy, unspecified Status: Acute Assessment and Plan: Echocardiogram (6) HERNAN (obstructive sleep apnea): Code(s): G47.33 - Obstructive sleep apnea (adult) (pediatric) Status: Acute Assessment and Plan: Currently on oxygen by nasal cannula (7) Chronic pain syndrome: Code(s): G89.4 - Chronic pain syndrome Status: Chronic Assessment and Plan: Continue home meds, history of substance abuse (8) Respiratory failure with hypoxia: Qualifiers: Chronicity: acute on chronic Qualified Code(s): J96.21 - Acute and chronic respiratory failure with hypoxia Code(s): J96.91 - Respiratory failure, unspecified with hypoxia Status: Acute Assessment and Plan: On supplemental oxygen by nasal cannula, 2 liters/minute at home baseline for COPD (9) H/O: substance abuse: Code(s): F19.11 - Other psychoactive substance abuse, in remission Status: Acute Assessment and Plan: Judicious narcotic monitoring Plan cardiology suspects patient may be able to discharge tomorrow. Time Spent With Patient Time with patient: Greater than 35 minutes Subjective Date/time seen: 06/23/23 11:58 Interval history: H&P 06/21:??This is a 62-year-old male with past medical history significant for coronary artery disease, cardiomyopathy, systolic heart failure, substance abuse, atrial fibrillation, type diabetes mellitus, peripheral diabetic neuropathy, chronic pain syndrome, chronic respiratory failure with hypoxia on home oxygen, obstructive sleep apnea, obesity.? Patient presents to the emergency room due to chest pain while walking in the parking lot localized to the retrosternal area with radiation to the jaw 0 now patient is localized to the back in the interscapular area.? She he is rating his pain a 7/10 in intensity relieved by nitro.? Patient has been in his usual state of health up until this point denies any chest pain prior to today, no lightheadedness, no dizziness, no nausea, no vomiting, no abdominal pain, no syncope or near syncope, no fevers, no rigors, no chills.? Preliminary workup was significant for elevated troponin.? Patient has been admitted for further evaluation management and treatment. Cardiology Consult 06/22:? John Peters is a 62-year-old male with past medical history of CVA, he
[2023-06-23] MEDS: DIGOXIN 250 MCG TABLET PO (13:13)
[2023-06-23] MEDS: SODIUM CHLORIDE 0.9% IV 1,000 ML 125 ML IV CONT (13:14)
[2023-06-23] MEDS: DULoxetine HCL 60 MG CAPSULE.DR PO (13:14)
[2023-06-23] MEDS: EMPAGLIFLOZIN 25 MG TABLET PO (13:14)
[2023-06-23 16:20] LABS: Glucose Point of Care 185 mg/dl (65-105)
[2023-06-23 16:28] LABS: Glucose Point of Care 180 mg/dl (65-105)
[2023-06-23] MEDS: BUMETANIDE 1 MG TABLET 2 MG PO (17:42)
[2023-06-23 20:08] LABS: Glucose Point of Care 192 mg/dl (65-105)
[2023-06-23] MEDS: HYDROmorphone HCL INJ (*CRX) 1 MG/ML SYR IV PUSH (20:49)
[2023-06-23] MEDS: ATORVASTATIN 40 MG TABLET PO (20:51)
[2023-06-23] MEDS: traZODone HCL 50 MG TABLET PO (20:51)
[2023-06-23] MEDS: DICLOFENAC SODIUM 1% 100 GM GEL (*BKC) 1 APPLIC TOPICAL (23:10)
[2023-06-24] VITALS (24 sets, daily range): BP systolic 86–115; BP diastolic 54–82; PULSE 82–101; RESP 14–25; TEMP 36.4–37.4; O2SAT 96–99
[2023-06-24 05:32] LABS: Basophils Absolute Auto 0.1 K/mm3 (0.0-0.1); Basophils Percent Auto 0.6 % (0.2-1.2); Eosinophils Absolute Auto 0.2 K/mm3 (0-0.3); Eosinophils Percent Auto 2.5 % (0-4.4); Hematocrit 41.8 % (42.0-52.0); Hemoglobin 12.8 g/dL (14.0-18.0); Immature Granulocyte Absolute 0.03 K/mm3 (0.00-0.031); Immature Granulocyte Percent A 0.4 % (0-0.5); Lymphocytes Percent Auto 11.8 % (18.3-44.2); Mean Corpuscular HGB Conc 30.6 g/dl (32-36); Mean Corpuscular Volume 94.6 fl (80-100); Mean Platelet Volume 9.7 fl (7.4-10.4); Monocytes Absolute Auto 0.9 K/mm3 (0.1-0.6); Monocytes Percent Auto 10.9 % (2.6-8.5); Neutrophils Absolute Auto 6.3 K/mm3 (1.3-6.7); Neutrophils Percent Auto 73.8 % (45.5-73.1); Platelet Count Result 150 k/mm3 (150-375); Red Blood Count 4.42 M/mm3 (4.6-6.20); Red Cell Distribution Width 14.7 % (11.5-14.5); White Blood Count 8.5 K/mm3 (4.5-10.0)
[2023-06-24 05:49] LABS: Alanine Aminotransferase 40 U/L (6-50); Albumin Level 3.8 g/dL (3.5-5.1); Alkaline Phosphatase 106 U/L (38-126); Anion Gap 6 mmol/L (8-16); Aspartate Amino Transferase 54 U/L (17-59); Bilirubin,Total 1.2 mg/dL (0.2-1.3); Blood Urea Nitrogen 18 mg/dL (9-20); Calcium 8.2 mg/dL (8.4-10.2); Carbon Dioxide 32 mmol/L (22-30); Chloride 97 mmol/L (98-107); Estimated CRCL calculation 75 ml/min; Estimated Glomerular Filt Rate > 60; Glucose 133 mg/dL (65-110); Magnesium 2.3 mg/dL (1.6-2.3); Potassium 4.3 mmol/L (3.4-5.0); Sodium 135 mmol/L (137-145)
[2023-06-24] MEDS: POTASSIUM CHLORIDE 20 MEQ ER TABLET 40 MEQ PO ×3 (06:20→23:00)
[2023-06-24 08:43] LABS: Glucose Point of Care 136 mg/dl (65-105)
[2023-06-24] MEDS: BUMETANIDE 1 MG TABLET 2 MG PO ×2 (10:14→17:30)
[2023-06-24] MEDS: DIGOXIN 250 MCG TABLET PO (10:14)
[2023-06-24] MEDS: METOPROLOL SUCCINATE EXT REL 100 MG TABCR 200 MG PO (10:15)
[2023-06-24] MEDS: APIXABAN 5 MG TABLET PO ×2 (10:15→20:40)
[2023-06-24] MEDS: CLOPIDOGREL BISULFATE 75 MG TABLET PO (10:15)
[2023-06-24] MEDS: EMPAGLIFLOZIN 25 MG TABLET PO (10:15)
[2023-06-24] MEDS: DULoxetine HCL 60 MG CAPSULE.DR PO (10:15)
--- NOTE | 2023-06-24 10:46 | PM.IMPN ---
Progress Note: A&P Assessment and Plan (1) Non-ST elevation MD (NSTEMI): Code(s): I21.4 - Non-ST elevation (NSTEMI) myocardial infarction Status: Acute Assessment and Plan: Admit to IMU Patient is on heparin drip Morphine oxygen nitro aspirin-- patient reports itching with morphine and prefers Dilaudid instead Cardiology consult 06/22: Trop increased over 7, Cardiology to take to operations label clerk tomorrow 06/23: operations label clerk today, no intervention (2) Atrial fibrillation with RVR: Code(s): I48.91 - Unspecified atrial fibrillation Status: Acute Assessment and Plan: 06/22: Heparin drip, hold Eliquis until cleared by Cardiology. Diltiazem started but discontinued by Cardiology. 06/23: post cardiac catheterization Dr. Carvajal recommends stop heparin and restart Eliquis tomorrow morning 06/24: blood pressure is slightly below optimal levels metoprolol XL given this morning Eliquis restarted heart rate ranges from 100 to 140s at times. (3) Essential hypertension: Code(s): I10 - Essential (primary) hypertension Status: Acute Assessment and Plan: Restart home meds. Blood pressure reviewed 06/24, borderline low likely due to rate control medications (4) Chronic systolic heart failure: Code(s): I50.22 - Chronic systolic (congestive) heart failure Status: Acute Assessment and Plan: Restart home meds, Monitor daily intake and output, Will obtain echocardiogram in the morning 06/22: Echo ordered 06/23: EF 45-50% with mildly increased ventricular wall thickness, diastolic function indeterminate 06/24: No signs of acute fluid overload (5) Cardiomyopathy: Qualifiers: Cardiomyopathy type: unspecified Qualified Code(s): I42.9 - Cardiomyopathy, unspecified Code(s): I42.9 - Cardiomyopathy, unspecified Status: Acute Assessment and Plan: Echocardiogram as above (6) HERNAN (obstructive sleep apnea): Code(s): G47.33 - Obstructive sleep apnea (adult) (pediatric) Status: Acute Assessment and Plan: Currently on oxygen by nasal cannula or BiPAP when sleeping (7) Chronic pain syndrome: Code(s): G89.4 - Chronic pain syndrome Status: Chronic Assessment and Plan: Continue home meds, history of substance abuse (8) Respiratory failure with hypoxia: Qualifiers: Chronicity: acute on chronic Qualified Code(s): J96.21 - Acute and chronic respiratory failure with hypoxia Code(s): J96.91 - Respiratory failure, unspecified with hypoxia Status: Acute Assessment and Plan: On supplemental oxygen by nasal cannula, 2 liters/minute at home baseline for COPD (9) H/O: substance abuse: Code(s): F19.11 - Other psychoactive substance abuse, in remission Status: Acute Assessment and Plan: Judicious narcotic monitoring Plan continue IMU status due to lower than preferred blood pressure and occasional tachycardia with afib Time Spent With Patient Time with patient: Greater than 35 minutes Subjective Date/time seen: 06/24/23 10:46 Interval history: H&P 06/21:??This is a 62-year-old male with past medical history significant for coronary artery disease, cardiomyopathy, systolic heart failure, substance abuse, atrial fibrillation, type diabetes mellitus, peripheral diabetic neuropathy, chronic pain syndrome, chronic respiratory failure with hypoxia on home oxygen, obstructive sleep apnea, obesity.? Patient presents to the emergency room due to chest pain while walking in the parking lot localized to the retrosternal area with radiation to the jaw 0 now patient is localized to the back in the interscapular area.? She he is rating his pain a 7/10 in intensity relieved by nitro.? Patient has been in his usual state of health up until this point denies any chest pain prior to today, no lightheadedness, no dizziness, no nausea, no vomiting, no abdominal pain, no syncope or near syncope, no fe
--- NOTE | 2023-06-24 11:15 | PCOTNOTE ---
Called EDWIN Marlow for pt. 8:00 06/24 and received verbal orders to d/c bedrest for activity as tolerated. Communicated this to the RN who states she will update the orders.
[2023-06-24 11:19] LABS: Glucose Point of Care 291 mg/dl (65-105)
[2023-06-24] MEDS: oxyCODONE HCL (*CRX) 5 MG TAB IR PO ×2 (12:33→17:31)
[2023-06-24] MEDS: INSULIN ASPART (*BKC) 100 UNITS/ML SUB-Q ×2 (12:34→20:41)
--- NOTE | 2023-06-24 16:36 | PM.PNCARD ---
Progress Note: A&P Assessment and Plan (1) Non-ST elevation CA (NSTEMI): Code(s): I21.4 - Non-ST elevation (NSTEMI) myocardial infarction Status: Acute Assessment and Plan: Cardiac catheterization shows: 1. Significant mid LAD disease. QA ARCHITECT of the proximal LCX. The proximal-mid portion of the RCA has a moderate stenosis. There are well-formed right to left collaterals filling the LCX/OM system.? 2. Patent GARSIA to LAD bypass graft 3. Occluded SVG bypass graft 4. No other bypass grafts visualized. 5. Left ventricular end-diastolic pressure of 21mmHg Does have significant LAD disease, but the GARSIA bypass graft is patent. His LCX is QA ARCHITECT. There is an occluded SVG bypass graft (which I suspect was probably supplying LCX/OM). However, he does have a well-developed right to left collateral system from the RCA supplying the LCX/OM system. RCA without obstructive disease. Therefore, no coronary intervention needed. Will continue with aggressive medical management. Only on Eliquis at home. Given the significant troponin elevation, will start Plavix on him. To avoid triple therapy, will not start ASA. Will arrange for close outpatient follow up with Dr. Spence. His cardiac cath images have been pushed to [facility]. (2) Atrial fibrillation with RVR: Code(s): I48.91 - Unspecified atrial fibrillation Status: Acute Assessment and Plan: Continue Digoxin. Of note, his Digoxin level may be artificially normal as he was given a dose of Digoxin in the ER and then level was drawn. Will need outpatient follow up. Was on Metoprolol 100mg BID. Patient's brother Alton reports John has issues with medication compliance, RVR may be contributed from not taking his medications at home. I have switched his tartrate to succinate to help with medication compliance. (3) H/O: substance abuse: Code(s): F19.11 - Other psychoactive substance abuse, in remission Status: Acute Assessment and Plan: Patient's brother Alton tells me that he is concerned John has been abusing narcotics currently. (4) Coronary artery disease: Onset Date: ~2001 Code(s): I25.10 - Atherosclerotic heart disease of [place] coronary artery without angina pectoris Status: Acute Assessment and Plan: As above (5) Chronic systolic heart failure: Code(s): I50.22 - Chronic systolic (congestive) heart failure Status: Acute Assessment and Plan: Stable. Continue PO Bumex, Jardiance, Metoprolol, Digoxin. (6) Mixed hyperlipidemia: Code(s): E78.2 - Mixed hyperlipidemia Status: Chronic Assessment and Plan: Continue statin. Subjective Date/time seen: 06/24/23 16:36 Interval history: Reason for visit: Atrial fibrillation with RVR, NSTEMI HPI: John Peters is a 62-year-old male with past medical history of CVA, hearing loss, persistent atrial fibrillation, history of AFib ablation, history of CABG and mitral valve repair about 12 years ago, COPD on home oxygen, hypertension, diabetes, hyperthyroidism, and chronic pain.? He comes to the hospital with a chief complaint of chest pain.? He states that yesterday while he was unloading groceries he developed midsternal chest pain that radiated up to his neck, jaw, and in between his shoulder blades. ? The chest pain has been constant since yesterday with waxing waning intensity.? On evaluation in the emergency department was noted to be in atrial fibrillation with rapid ventricular response.? His workup has also been significant for elevated troponin levels of 0.447, 1.210, and 7.110.? Chest pain has improved with sublingual nitroglycerin but has not completely resolved.? He is currently on a heparin drip.? Prior to yesterday's onset of chest pain he has been feeling very well and has not experienced any angina, shortness of breath above his baseline, palpitations. ? At the time of my evaluation he is sitting comfortably in a chair and does have ongoing
[2023-06-24 16:51] LABS: Glucose Point of Care 145 mg/dl (65-105)
[2023-06-24] MEDS: traZODone HCL 50 MG TABLET PO (20:41)
[2023-06-24] MEDS: ATORVASTATIN 40 MG TABLET PO (20:41)
[2023-06-24] MEDS: DICLOFENAC SODIUM 1% 100 GM GEL (*BKC) 1 APPLIC TOPICAL (20:41)
[2023-06-25] VITALS (11 sets, daily range): BP systolic 94–118; BP diastolic 47–77; PULSE 65–88; RESP 16–20; TEMP 36.3–37.1; O2SAT 99–100
[2023-06-25 00:42] LABS: Glucose Point of Care 253 mg/dl (65-105)
[2023-06-25] MEDS: oxyCODONE HCL (*CRX) 5 MG TAB IR PO ×2 (00:58→09:34)
[2023-06-25 05:27] LABS: Basophils Percent Auto 0.6 % (0.2-1.2); Eosinophils Absolute Auto 0.3 K/mm3 (0-0.3); Eosinophils Percent Auto 3.8 % (0-4.4); Hematocrit 39.8 % (42.0-52.0); Hemoglobin 12.5 g/dL (14.0-18.0); Immature Granulocyte Absolute 0.04 K/mm3 (0.00-0.031); Immature Granulocyte Percent A 0.6 % (0-0.5); Lymphocytes Absolute Auto 0.82 K/mm3 (0.9-3.2); Lymphocytes Percent Auto 11.6 % (18.3-44.2); Mean Corpuscular HGB Conc 31.4 g/dl (32-36); Mean Corpuscular Hemoglobin 29.1 pg (26-34); Mean Corpuscular Volume 92.8 fl (80-100); Mean Platelet Volume 9.6 fl (7.4-10.4); Monocytes Absolute Auto 0.8 K/mm3 (0.1-0.6); Monocytes Percent Auto 10.6 % (2.6-8.5); Neutrophils Absolute Auto 5.2 K/mm3 (1.3-6.7); Neutrophils Percent Auto 72.8 % (45.5-73.1); Platelet Count Result 158 k/mm3 (150-375); Red Blood Count 4.29 M/mm3 (4.6-6.20); Red Cell Distribution Width 14.3 % (11.5-14.5); White Blood Count 7.1 K/mm3 (4.5-10.0)
[2023-06-25 05:42] LABS: Alanine Aminotransferase 55 U/L (6-50); Albumin Level 3.5 g/dL (3.5-5.1); Alkaline Phosphatase 104 U/L (38-126); Anion Gap 3 mmol/L (8-16); Aspartate Amino Transferase 47 U/L (17-59); Bilirubin,Total 0.8 mg/dL (0.2-1.3); Blood Urea Nitrogen 23 mg/dL (9-20); Calcium 8.3 mg/dL (8.4-10.2); Carbon Dioxide 35 mmol/L (22-30); Chloride 96 mmol/L (98-107); Estimated CRCL calculation 81 ml/min; Estimated Glomerular Filt Rate > 60; Glucose 162 mg/dL (65-110); Magnesium 2.1 mg/dL (1.6-2.3); Potassium 3.7 mmol/L (3.4-5.0); Sodium 134 mmol/L (137-145)
[2023-06-25] MEDS: POTASSIUM CHLORIDE 20 MEQ ER TABLET 40 MEQ PO (06:11)
[2023-06-25 07:45] LABS: Glucose Point of Care 209 mg/dl (65-105)
[2023-06-25] MEDS: DULoxetine HCL 60 MG CAPSULE.DR PO (09:34)
[2023-06-25] MEDS: EMPAGLIFLOZIN 25 MG TABLET PO (09:34)
[2023-06-25] MEDS: METOPROLOL SUCCINATE EXT REL 100 MG TABCR 200 MG PO (09:34)
[2023-06-25] MEDS: APIXABAN 5 MG TABLET PO (09:35)
[2023-06-25] MEDS: INSULIN ASPART (*BKC) 100 UNITS/ML SUB-Q (09:35)
[2023-06-25] MEDS: CLOPIDOGREL BISULFATE 75 MG TABLET PO (09:35)
[2023-06-25] MEDS: DIGOXIN 250 MCG TABLET PO (09:35)
[2023-06-25] MEDS: BUMETANIDE 1 MG TABLET 2 MG PO (09:35)
--- NOTE | 2023-06-25 09:39 | PM.DS ---
DS: Admitting Diagnosis Discharge Date 06/25/2023 Admitting Diagnosis NSTEMI, essential hypertension, chronic systolic heart failure, unstable angina, coronary artery disease, cardiomyopathy, atrial fibrillation with RVR, HERNAN, mitral valve disease, chronic pain syndrome, respiratory failure with hypoxia, history of substance abuse DS: Discharge Diagnosis Discharge Diagnosis (1) Non-ST elevation AL (NSTEMI): Code(s): I21.4 - Non-ST elevation (NSTEMI) myocardial infarction Status: Acute (2) Atrial fibrillation with RVR: Code(s): I48.91 - Unspecified atrial fibrillation Status: Acute (3) Essential hypertension: Code(s): I10 - Essential (primary) hypertension Status: Acute (4) Chronic systolic heart failure: Code(s): I50.22 - Chronic systolic (congestive) heart failure Status: Acute (5) Cardiomyopathy: Qualifiers: Cardiomyopathy type: unspecified Qualified Code(s): I42.9 - Cardiomyopathy, unspecified Code(s): I42.9 - Cardiomyopathy, unspecified Status: Acute (6) HERNAN (obstructive sleep apnea): Code(s): G47.33 - Obstructive sleep apnea (adult) (pediatric) Status: Acute (7) Chronic pain syndrome: Code(s): G89.4 - Chronic pain syndrome Status: Chronic (8) Respiratory failure with hypoxia: Qualifiers: Chronicity: acute on chronic Qualified Code(s): J96.21 - Acute and chronic respiratory failure with hypoxia Code(s): J96.91 - Respiratory failure, unspecified with hypoxia Status: Acute (9) H/O: substance abuse: Code(s): F19.11 - Other psychoactive substance abuse, in remission Status: Acute DS: Summary Hospital Course Reason for hospitalization: AFib with RVR and NSTEMI Hospital Course: H&P 06/21:??This is a 62-year-old male with past medical history significant for coronary artery disease, cardiomyopathy, systolic heart failure, substance abuse, atrial fibrillation, type diabetes mellitus, peripheral diabetic neuropathy, chronic pain syndrome, chronic respiratory failure with hypoxia on home oxygen, obstructive sleep apnea, obesity.? Patient presents to the emergency room due to chest pain while walking in the parking lot localized to the retrosternal area with radiation to the jaw 0 now patient is localized to the back in the interscapular area.? She he is rating his pain a 7/10 in intensity relieved by nitro.? Patient has been in his usual state of health up until this point denies any chest pain prior to today, no lightheadedness, no dizziness, no nausea, no vomiting, no abdominal pain, no syncope or near syncope, no fevers, no rigors, no chills.? Preliminary workup was significant for elevated troponin.? Patient has been admitted for further evaluation management and treatment. Cardiology Consult 06/22:? John Peters is a 62-year-old male with past medical history of CVA, hearing loss, persistent atrial fibrillation, history of AFib ablation, history of CABG and mitral valve repair about 12 years ago, COPD on home oxygen, hypertension, diabetes, hyperthyroidism, and chronic pain.? He comes to the hospital with a chief complaint of chest pain.? He states that yesterday while he was unloading groceries he developed midsternal chest pain that radiated up to his neck, jaw, and in between his shoulder blades. ? the chest pain has been constant since yesterday with waxing waning intensity.? On evaluation in the emergency department was noted to be in atrial fibrillation with rapid ventricular response.? His workup has also been significant for elevated troponin levels of 0.447, 1.210, and 7.110.? Chest pain has improved with sublingual nitroglycerin but has not completely resolved.? He is currently on a heparin drip.? Prior to yesterday's onset of chest pain he has been feeling very well and has not experienced any angina, shortness of breath above his baseline, palpitations. ? At the time of my evaluation he is si
[2023-06-25 11:12] LABS: Glucose Point of Care 164 mg/dl (65-105)
--- NOTE | 2023-06-25 13:50 | PCCPR ---
Spoke with Aaron at bedside. Overview of the program given. He was asking questions if he could start with some Cardiac Rehab at home. Explained his dc associate financial planner asked us to evaluate and discuss his options. He expressed needing transportation if he were to come here. Reviewed these options with his nurse as well. He would benefit form Cardiac rehab and CHF teaching.
--- NOTE | 2023-06-25 13:54 | IVDEFINITY ---
Prior to administration of IV Definity the patient was educated on the risks and benefits of the imaging enhancing agent including potential adverse side effects. The patient verbalized understanding. Allergies were verified. No exclusion criteria were identified and at least one of the following inclusion criteria were met: 1) physician request, 2) patient technically difficult to image (per the [place] [employer]ocardi[employer] guidelines of two or more segments not discernable within the apical view), or 3) questionable left ventricular function. ?
== END 2023-06-25 14:12 | disposition home health service (06) | DRG 281 ==
LOC: ANHED 22:39 → ANHIMU 23:46
PROVIDERS: Emergency Medicine; Internal Medicine; Student in an Organized Health Care Education/Training Program; Admitting Provider Internal Medicine; Emergency Provider Physician Assistant; PCP Family Medicine; Visit Provider Nurse Practitioner
PROC: 4A023N7 Measurement of Cardiac Sampling and Pressure, Left Heart, Percutaneous Approach (ICD-10-PCS; CPT 93459; principal; 2023-06-23 10:00)
PROC: 4A023N7 Measurement of Cardiac Sampling and Pressure, Left Heart, Percutaneous Approach (ICD-10-PCS; 2023-06-23 10:00)
DX: I21.4 Non-ST elevation (NSTEMI) myocardial infarction (principal); I42.9 Cardiomyopathy, unspecified; I50.22 Chronic systolic (congestive) heart failure; I48.19 Other persistent atrial fibrillation; I11.0 Hypertensive heart disease with heart failure; G47.33 Obstructive sleep apnea (adult) (pediatric); G89.4 Chronic pain syndrome; E11.42 Type 2 diabetes mellitus with diabetic polyneuropathy; F41.8 Other specified anxiety disorders; J44.9 Chronic obstructive pulmonary disease, unspecified; E78.5 Hyperlipidemia, unspecified; E05.90 Thyrotoxicosis, unspecified without thyrotoxic crisis or storm; I25.110 Atherosclerotic heart disease of native coronary artery with unstable angina pectoris; M19.90 Unspecified osteoarthritis, unspecified site; D64.9 Anemia, unspecified; I69.320 Aphasia following cerebral infarction; Z95.1 Presence of aortocoronary bypass graft; E66.9 Obesity, unspecified; F19.11 Other psychoactive substance abuse, in remission; Z68.37 Body mass index [BMI] 37.0-37.9, adult; Z99.81 Dependence on supplemental oxygen; Z87.891 Personal history of nicotine dependence; Z79.84 Long term (current) use of oral hypoglycemic drugs
CPT/HCPCS: 36415; 70450; 71046; 71275; 72125; 80053; 80162; 82948; 83036; 83690; 83735; 84484; 85025; 85610; 85730; 93005; 93459; 94002; 94003; 96365; 96366; 96372; 96375; 97161; 97165; 99285; A9270; C1760; C1769; C1887; C1894; C8929; C9113; G0269; G0378; J1170; J1644; J1815; J2250; J2270; J3010; J3360; J7030; J7040; Q9957; Q9967

== ENCOUNTER 2023-08-14 23:29 | Inpatient (IN) | payer MEDICARE, MEDICAID, SELFPAY ==
[2023-08-14] VITALS (7 sets, daily range): BP systolic 94–137; BP diastolic 81–106; PULSE 125–133; RESP 19–28; TEMP 36; O2SAT 90–96
--- NOTE | ~2023-08-14 | XR_ITS ---
EXAMINATION: XR chest 1V portable INDICATION: STEMI TECHNIQUE: Portable AP chest at 0012 hours COMPARISON: 06/21/2023 FINDINGS: There is a mild diffuse interstitial pattern. Cardiomegaly is noted. No pleural effusion or pneumothorax. Median sternotomy wires and mediastinal surgical clips are seen, likely from prior cor onary artery bypass grafting. IMPRESSION: 1. Cardiomegaly with mild pulmonary edema. Reviewed, dictated and finalized at location F. TLE ROUTE VEHICLE OPERATOR
--- NOTE | 2023-08-14 23:34 | PC.NURSE ---
BUCKB to Trupti give 150mg amiodorone IVP and start drip at normal rate. 2334 150mg IVP amiodarone given.
--- NOTE | 2023-08-14 23:36 | PC.NURSE ---
2336 Amio drip 360mg/200 started at 1mg per minute, 33.3ml/hr.
--- NOTE | 2023-08-14 23:39 | ECG_ITS ---
Measurements Intervals [place] Rate: 125 P: PA: 0 QRS: 194 QRSD: 122 T: 0 QT: 264 QTc: 381 Interpretive Statements ATRIAL FIBRILLATION WITH RAPID VENTRICULAR RESPONSE POSSIBLE RIGHT VENTRICULAR HYPERTROPHY ST SEGMENT ABNORMALITY, CONSIDER ISCHEMIA Electronically Signed On 08-15-2023 11:38:52 BUSINESS PROCESS ARCHITECT by Samuel Nelson M.D.
--- NOTE | 2023-08-14 23:40 | PC.NURSE ---
VORB to give 4000units of heparin IVP and start drip.
[2023-08-14] MEDS: HEPARIN SODIUM 5,000 UNITS/ML VIAL 4000 UNITS IV PUSH (23:42)
--- NOTE | 2023-08-14 23:42 | PC.NURSE ---
2342 4000units of heparin given IVP.
[2023-08-14] MEDS: HEPARIN SOD/D5W 100 UNITS/ML 25,000 UNITS/250 ML BAG 15.32 UNITS IV CONT (23:45)
--- NOTE | 2023-08-14 23:45 | ECG_ITS ---
Measurements Intervals [place] Rate: 129 P: VT: 0 QRS: 125 QRSD: 105 T: 0 QT: 260 QTc: 382 Interpretive Statements ATRIAL FIBRILLATION WITH RAPID VENTRICULAR RESPONSE PATTERN CONSISTENT WITH PULMONARY DISEASE POSSIBLE RIGHT VENTRICULAR HYPERTROPHY SEPTAL MYOCARDIAL INFARCTION , OF INDETERMINATE AGE MARKED ST DEPRESSION, CONSIDER SUBENDOCARDIAL INJURY Electronically Signed On 08-15-2023 11:37:57 METAL DRESSER by Samuel Nelson M.D.
--- NOTE | 2023-08-14 23:45 | PC.NURSE ---
Heparin drip started at 15mls/hr which is 12 units per hour per ordered protocol by ERP. Unable to scan med in SEP at this time.
[2023-08-14] MEDS: ASPIRIN 81 MG CHEWABLE TABLET 324 MG PO (23:47)
[2023-08-14] MEDS: TICAGRELOR 90 MG TABLET 180 MG PO (23:47)
--- NOTE | 2023-08-14 23:47 | PC.NURSE ---
VORB to give 180mg oaf brilinta and 342mg of chew asa. Patient given meds PO at 2347.
[2023-08-14] MEDS: ONDANSETRON INJ 4 MG/2 ML VIAL IV PUSH (23:48)
--- NOTE | 2023-08-14 23:48 | ED.GENADULT ---
HPI - General Adult General Chief complaint: Chest Pain Stated complaint: STEMI History of Present Illness HPI narrative: Patient is a 63-year-old gentleman who presents emergency department with chief complaint of acute ST-elevation LA. Patient reports this evening he was at a friend's house and an edible and then started having chest pain the patient was picked up by EMS and was found to have acute ST elevations on his EKG the patient then had an episode of unresponsiveness and VFib on the EKG leads the patient was electrically cardioverted 6 different times in the back of the ambulance EN route to the emergency department. The patient was given mg of epinephrine given 150 mg of amiodarone and was transported to the ER. Upon arrival to the emergency department the patient was awake alert and complaining of chest pain and shortness of breath. EKG did show diffuse ST depressions with ST elevations on the EKG. While in the department the patient had a run of VFib and became unresponsive the patient was shocked with 120 joules and then had return of spontaneous circulation and started conversing patient then became unresponsive again and was shocked again case Related Data Home Medications Medication Instructions Recorded Confirmed artificial tears with lanolin eye 1 applic EACH EYE Q1-4H PRN Dry 01/17/23 06/22/23 ointment Eyes potassium chloride 20 mEq 40 meq PO TID 01/17/23 06/22/23 tablet,extended release(part/cryst) trazodone 50 mg tablet 50 mg PO HS 01/17/23 06/22/23 diclofenac sodium 1 % topical gel See Rx Instructions .Route .COMPLEX 06/22/23 06/22/23 Allergies Allergy/AdvReac Type Severity Reaction Status Date / Time morphine AdvReac Unknown Increased Verified 06/22/23 12:57 HR Review of Systems Review of Systems: A 10 system review of systems was completed on the patient and is negative except for what is stated in the HPI. Nursing and ancillary documentation was reviewed. [facility] Past Medical History Medical History Cardiomyopathy Cerebrovascular accident (~05/2018) With global aphasia, much improved with mild expressive aphasia. Chronic anemia Chronic atrial fibrillation With failed cardiac ablation and cardioversion on several occasions. On long-term Coumadin for stroke prophylaxis. Process Stripper is Dr. Vasquez at [facility]. Chronic respiratory failure with hypoxia, on home oxygen therapy 3 L nasal cannula with rest p.r.n. 4 L bleed in at nighttime. Congestive heart failure Echocardiogram on 03/27/2021 showed an enlarged left ventricular chamber with normal LV systolic function and an estimated EF of 55 to 60%, diastolic dysfunction, moderately enlarged right ventricular chamber, reduced RV systolic function, biatrial enlargement, mild regurgitation of annuloplasty ring of a prosthetic mitral valve, and mild pulmonary hypertension with an estimated pulmonary arterial systolic pressure of 44 mmHg. COPD (chronic obstructive pulmonary disease) Coronary artery disease (~2001) Status post three-vessel bypass. Depression with anxiety Essential hypertension H/O: substance abuse Brother reports patient is an addict, previously abused cocaine, alcohol and opiates. Hyperlipidemia Hyperthyroidism MRSA colonization Obstructive sleep apnea Approved for trilogy unit in February 2020. Osteoarthritis Type 2 diabetes mellitus Hemoglobin A1c was 6.4% on 03/26/2021. Type 2 diabetes mellitus without complication, without long-term current use of insulin Valvular heart disease Status post mitral valve repair. Surgical History Surgical History History of coronary artery bypass graft x 3 History of mitral valve repair Family History Family History Father Family history of cardiovascular disease F
[2023-08-15] VITALS (32 sets, daily range): BP systolic 91–115; BP diastolic 53–84; PULSE 90–134; RESP 12–32; TEMP 36.3–37.1; O2SAT 92–100; BMI 40.1
[2023-08-15 00:17] LABS: Basophils Absolute Auto 0.1 K/mm3 (0.0-0.1); Basophils Percent Auto 0.5 % (0.2-1.2); Eosinophils Absolute Auto 0.3 K/mm3 (0-0.3); Eosinophils Percent Auto 1.5 % (0-4.4); Hemoglobin 14.8 g/dL (14.0-18.0); Immature Granulocyte Absolute 0.36 K/mm3 (0.00-0.031); Immature Granulocyte Percent A 1.7 % (0-0.5); Lymphocytes Absolute Auto 3.08 K/mm3 (0.9-3.2); Mean Corpuscular HGB Conc 31.5 g/dl (32-36); Mean Corpuscular Hemoglobin 29.2 pg (26-34); Mean Corpuscular Volume 92.7 fl (80-100); Monocytes Absolute Auto 1.3 K/mm3 (0.1-0.6); Monocytes Percent Auto 6.2 % (2.6-8.5); Neutrophils Absolute Auto 15.5 K/mm3 (1.3-6.7); Neutrophils Percent Auto 75.1 % (45.5-73.1); Platelet Count Result 215 k/mm3 (150-375); Red Blood Count 5.07 M/mm3 (4.6-6.20); Red Cell Distribution Width 14.2 % (11.5-14.5); White Blood Count 20.6 K/mm3 (4.5-10.0)
--- NOTE | 2023-08-15 00:27 | PM.IMCN ---
Assessment and Plan Assessment and plan (1) Atrial fibrillation with rapid ventricular response: Code(s): I48.91 - Unspecified atrial fibrillation Status: Acute (2) Ventricular fibrillation: Code(s): I49.01 - Ventricular fibrillation Status: Acute (3) ACS (acute coronary syndrome): Code(s): I24.9 - Acute ischemic heart disease, unspecified Status: Acute (4) Chronic systolic heart failure: Code(s): I50.22 - Chronic systolic (congestive) heart failure Status: Acute (5) Right-sided congestive heart failure: Qualifiers: Heart failure chronicity: chronic Qualified Code(s): I50.812 - Chronic right heart failure Code(s): I50.810 - Right heart failure, unspecified Status: Acute (6) HERNAN (obstructive sleep apnea): Code(s): G47.33 - Obstructive sleep apnea (adult) (pediatric) Status: Acute Plan Patient has acute coronary syndrome with EMS EKG reportedly consistent with ST-elevation CA however this was not available for my review. Repeat EKG after patient arrived to our facility demonstrated diffuse ST depression. Patient had recent cardiac catheterization her facility which demonstrated disease as discussed in HPI. Cardiology has planned for conservative management but patient been placed in the ICU due to recurrent episodes of VFib arrest. Patient is on amiodarone infusion. Patient currently in AFib RVR. Will defer management to Cardiology Service. Patient is on heparin drip and received a dose of Brilinta as well as aspirin therapy. Troponins are trending upward but this is not unexpected given the patient's preceding events. Patient is on heparin drip and will hold patient's home Eliquis. The patient is her reporting persistent chest pain and back pain. The patient's is report of pain is somewhat distorted due to history of narcotic abuse. Will provide cautious use of p.r.n. pain medications and monitor. Labs demonstrated elevated anion gap and hyperglycemia. Will place patient on high-dose sliding scale insulin with Accu-Cheks q.6 hours while NPO. Patient does have mild acute kidney injury patient's home metformin and Bumex will be held. Will repeat BMP in a.m.. Patient has obstructive sleep apnea. Auto titrating CPAP has been ordered but patient does have a history of passive requiring trilogy. Will monitor closely and consider further adjustments at that time. HPI Date of Consult Consult date: 08/15/23 Requesting Physician: Samuel Nelson MD Primary Care Provider: Azar Mccann, Consult Narrative Narrative: John Peters is a 63 year old male with a past medical history of coronary artery disease, prior coronary bypass graft (2 vessel), chronic atrial fibrillation on Eliquis, obstructive sleep apnea, essential hypertension, ischemic cardiomyopathy as well as right-sided heart failure who presented to the ER due to VFib/V-tach arrest and STEMI called in the field. Patient had been having chest pain earlier in the day. His chest pain was a accompanied by pain between his shoulder blades and diaphoresis as well as some mild nausea. His pain started at 3 took a edible. His initial EKG per EMS demonstrated ST elevations. He then became acutely unresponsive and had VFib arrest on EKG. He was shocked approximately 6 times in the field receive 1 dose of epinephrine as well 150 mg of amiodarone. Once patient arrived to the ER he had another 2 episodes of VFib arrest and received 2 more shocks another dose of amiodarone. Patient's initial troponin in ER was normal. After return of rhythm patient is alert oriented x3 and conversational. The patient is somewhat slow to respond and seems delayed but he does have a history of prior CVA with history of global aphasia in still has some mild expressive aphasia. Patient does report generalized pain and has chronic back pain and is on chronic narcotic therapy. He has obstructive sleep apnea and is p
[2023-08-15 00:29] LABS: INR 1.1; Prothrombin Time 14.8 Seconds (11.1-14.7)
[2023-08-15 00:30] LABS: Cholesterol 139 mg/dL (0-200); HDL Direct 24 mg/dL; Partial Thromboplastin Time 27.6 SECONDS (22.3-36.8); Triglycerides 316 mg/dL (<150)
--- NOTE | 2023-08-15 00:30 | PC.NURSE ---
Branch Employment Coordinator will not take pt down until 08/15 in the morning as pt was just had cath procedure last month. Pt will be admitted to ICU [facility]. community manager released [facility] 0020.
[2023-08-15 00:31] LABS: Alanine Aminotransferase 48 U/L (6-50); Alkaline Phosphatase 128 U/L (38-126); Anion Gap 17 mmol/L (8-16); Aspartate Amino Transferase 84 U/L (17-59); Bilirubin,Total 0.9 mg/dL (0.2-1.3); Blood Urea Nitrogen 20 mg/dL (9-20); Carbon Dioxide 24 mmol/L (22-30); Chloride 94 mmol/L (98-107); Estimated CRCL calculation 62 ml/min; Estimated Glomerular Filt Rate 51; Glucose 365 mg/dL (65-110); Potassium 3.4 mmol/L (3.4-5.0); Sodium 135 mmol/L (137-145)
[2023-08-15 00:40] LABS: LDL Cholesterol Direct 94 mg/dL
[2023-08-15 00:43] LABS: Troponin I 0.015 ng/mL (0.000-0.034)
[2023-08-15] MEDS: AMIODARONE 360 MG/D5W 200 ML 360 MG/200 ML BAG 33.33 MG IV CONT (00:44)
--- NOTE | 2023-08-15 00:50 | PC.NURSE ---
ROLAND Griggs give 1mg IVP dilauded. Given at 0051.
[2023-08-15] MEDS: HYDROmorphone HCL INJ (*CRX) 1 MG/ML SYR (00:51)
--- NOTE | 2023-08-15 01:00 | PC.NURSE ---
This patient, John Peters, was admitted to Intensive Care Unit-3. Patient/family oriented to hospital policies and general routines including ID bracelet, bed and alarms, visiting hours, pain management, procedures, bathroom and other care routines, personal items, smoking policy, room service/diet, and visiting hours. Information on how to activate the Rapid Response Team has been discussed. Patient/Family are encouraged to report perceived risks to care and to ask questions if they do not understand what they are told or what they should do.
--- NOTE | 2023-08-15 02:22 | PC.NURSE ---
Bin of home medications sent home with brother, including 4 tabs of oxycodone left from prescription filled 08/10. Patient's tin of chew tobacco also sent home with brother.
[2023-08-15 04:05] LABS: Troponin I 0.542 ng/mL (0.000-0.034)
[2023-08-15] MEDS: SODIUM CHLORIDE 0.9% IV 1,000 ML 30 ML IV CONT (04:32)
[2023-08-15] MEDS: HYDROmorphone HCL INJ (*CRX) 1 MG/ML SYR 0.5 MG IV PUSH ×7 (04:32→23:41)
[2023-08-15] MEDS: AMIODARONE 360 MG/D5W 200 ML 360 MG/200 ML BAG 16.67 MG IV CONT ×2 (05:00→16:43)
[2023-08-15 06:39] LABS: Basophils Percent Auto 0.3 % (0.2-1.2); Eosinophils Percent Auto 0.1 % (0-4.4); Hematocrit 42.8 % (42.0-52.0); Hemoglobin 13.5 g/dL (14.0-18.0); Immature Granulocyte Absolute 0.06 K/mm3 (0.00-0.031); Immature Granulocyte Percent A 0.5 % (0-0.5); Lymphocytes Absolute Auto 0.92 K/mm3 (0.9-3.2); Lymphocytes Percent Auto 8.2 % (18.3-44.2); Mean Corpuscular HGB Conc 31.5 g/dl (32-36); Mean Corpuscular Volume 91.8 fl (80-100); Mean Platelet Volume 9.5 fl (7.4-10.4); Monocytes Absolute Auto 0.9 K/mm3 (0.1-0.6); Monocytes Percent Auto 7.7 % (2.6-8.5); Neutrophils Absolute Auto 9.3 K/mm3 (1.3-6.7); Neutrophils Percent Auto 83.2 % (45.5-73.1); Platelet Count Result 150 k/mm3 (150-375); Red Blood Count 4.66 M/mm3 (4.6-6.20); Red Cell Distribution Width 14.3 % (11.5-14.5); White Blood Count 11.2 K/mm3 (4.5-10.0)
[2023-08-15 06:53] LABS: Partial Thromboplastin Time 58.8 SECONDS (22.3-36.8)
[2023-08-15] MEDS: HEPARIN SODIUM 5,000 UNITS/ML VIAL 3500 UNITS IV PUSH (06:59)
[2023-08-15] MEDS: HEPARIN SOD/D5W 100 UNITS/ML 25,000 UNITS/250 ML BAG 17 UNITS IV CONT ×2 (07:36→14:05)
[2023-08-15 07:50] LABS: MRSA (PCR) NOT DETECTED (NOT DETECTE)
[2023-08-15] MEDS: BACLOFEN 10 MG TABLET PO ×2 (08:43→16:45)
[2023-08-15] MEDS: DICLOFENAC SODIUM 1% 100 GM GEL (*BKC) 1 APPLIC TOPICAL ×2 (08:43→20:34)
[2023-08-15] MEDS: ASPIRIN 81 MG CHEWABLE TABLET PO (08:43)
[2023-08-15] MEDS: EMPAGLIFLOZIN 25 MG TABLET PO (08:43)
[2023-08-15] MEDS: DIGOXIN 250 MCG TABLET PO (08:43)
[2023-08-15] MEDS: methiMAzole 5 MG TAB 15 MG PO (08:44)
[2023-08-15] MEDS: PREGABALIN (*CRX) 50 MG CAPSULE 100 MG PO ×2 (08:44→16:45)
[2023-08-15] MEDS: POTASSIUM CHLORIDE 20 MEQ ER TABLET 40 MEQ PO (08:44)
--- NOTE | 2023-08-15 09:06 | PM.IMHP ---
H&P: HPI History of Present Illness Date/Time: 08/15/23 09:06 Chief Complaint: Generalized body pain Brought to the hospital after patient had what was reported as before cardiac arrest Narrative: DATE OF EVALUATION: 08/15/2023 CHIEF COMPLAINT: HPI: 63-year-old male with CAD, history of remote CABG and mitral valve repair; persistent atrial fibrillation on anticoagulation with apixaban, hypertension, diabetes mellitus, history of CVA, COPD on home oxygen, chronic pain on outpatient opioids; chewing tobacco abuse. Patient was recently hospitalized in June [address] elevation MS and cardiac catheterization performed on 06/23/2023 reportedly showed significant mid LAD disease with patent GARSIA to LAD, REHAB THERAPY MANAGER of the proximal LCX, moderate stenosis proximal-mid RCA, right to left collaterals filling the LCX/OM system; patent GARSIA, occluded SVG grafts. ?He was managed medically. He presented to [facility] Emergency Room last night after patient was found to have VFib cardiac arrest which required resuscitation and multiple shocks. The case was discussed with the emergency room physician. Initially, cardiac catheterization lab was activated. I gathered more information about the patient's cardiac history including recent cardiac catheterization with the ER physician Sergio. His EKG showed diffuse ST segment segment depression. Case was also discussed with ICU physician. Given patient's recent cardiac catheterization, EKG findings and patient being on anticoagulation with apixaban, emergent cardiac catheterization was not deemed necessary last night. Patient was initiated on amiodarone IV, apixaban was put on hold and patient was initiated on anticoagulation with unfractionated heparin, and was later admitted to ICU for further observation. At the time of evaluation today, patient is alert with complaints of generalized body pain. Information is gathered from the patient, his brother and his friend were present in the patient's room. As per patient's friend, patient was shaky last night followed by episode of unresponsiveness. EMS was called and patient was shocked multiple times for what was reported as Vfib cardiac arrest. EKG at presentation on my personal interpretation showed atrial fibrillation with RVR, diffuse ST segment depression with ST elevation in AVR. Troponins mildly elevated with current peak troponin of 1.4. Chest x-ray shows ?Cardiomegaly with mild pulmonary edema. Recent echocardiogram from 06/22/2023 reportedly showed moderate LVH, LVEF 45-50%, mild RV enlargement, [id number] MR, mildly calcified aortic valve. Since admission to the ICU, patient has been complaining of generalized body pain. He is on opioid treatment as an outpatient. His brother reports that patient may have consumed excessive oxycodone pills as 54 pills were missing the bottle for last couple of days. On telemetry, patient has converted to sinus rhythm with IV amiodarone. Review of Systems Review of Systems: General: Positive for fatigue Psychological: Positive for anxiety, depression Ophthalmic: negative for loss of vision ENT: Negative for epistaxis, headaches Allergy and immunology: Negative for hives, nasal congestion Hematologic and lymphatic: Negative for overt bleeding problems Endocrine: Negative for hot flashes, palpitations Respiratory: Negative for cough, hemoptysis Cardiovascular: Positive for generalized body pain including chest, shoulder and back Gastrointestinal: Negative for abdominal pain, nausea, vomiting, hematochezia Musculoskeletal: Generalized body pains Neurological: Positive for generalized weakness Dermatological: Negative for rash, skin discoloration PMFSH Past Medical History Medical History Cardiomyopathy Cerebrovascular accident (~05/2018) With global aphasia, much improved with mild expressive aphasia. Chronic anemia Chronic atri
--- NOTE | 2023-08-15 09:15 | WPDCNINT ---
Assessment and Plan Assessment and plan (1) Atrial fibrillation with rapid ventricular response: Code(s): I48.91 - Unspecified atrial fibrillation Status: Acute Assessment and Plan: Currently in sinus rhythm Continue amiodarone heparin infusion (2) Ventricular fibrillation: Code(s): I49.01 - Ventricular fibrillation Status: Acute Assessment and Plan: Patient seen by Cardiology. Monitor and replace electrolytes Continue amiodarone and heparin Check echo Check Dig Level. Hold Dig for now Serial troponin (3) ACS (acute coronary syndrome): Code(s): I24.9 - Acute ischemic heart disease, unspecified Status: Acute Assessment and Plan: Patient has history of coronary disease status post CABG. Patient was recently admitted to [facility] with NSTEMI and underwent cardiac catheterization which showed Cardiac catheterization 07/03 Post-op Diagnosis: 1. Significant mid LAD disease. ELECTRONIC INTELLIGENCE OFFICER of the proximal LCX. The proximal-mid portion of the RCA has a moderate stenosis. There are well-formed right to left collaterals filling the LCX/OM system.? 2. Patent GARSIA to LAD bypass graft 3. Occluded SVG bypass graft 4. No other bypass grafts visualized. 5. Left ventricular end-diastolic pressure of 21mmHg His troponins elevated and he had abnormal EKG. Continue heparin infusion Continue statin and Plavix Cardiology has been consulted and will make a decision on further evaluation interventions (4) Coronary artery disease: Onset Date: ~2001 Code(s): I25.10 - Atherosclerotic heart disease of [place] coronary artery without angina pectoris Status: Acute Assessment and Plan: See above (5) HERNAN (obstructive sleep apnea): Code(s): G47.33 - Obstructive sleep apnea (adult) (pediatric) Status: Acute Assessment and Plan: Home CPAP ordered (6) JESUS (acute kidney injury): Code(s): N17.9 - Acute kidney failure, unspecified Status: Acute Assessment and Plan: Creatinine mildly elevated to 1.4 on presentation Repeat labs ordered Will give small amount of IV fluids CK level (7) COPD (chronic obstructive pulmonary disease): Code(s): J44.9 - Chronic obstructive pulmonary disease, unspecified Status: Acute Assessment and Plan: Not in exacerbation Continue bronchodilators (8) Type 2 diabetes mellitus with polyneuropathy: Code(s): E11.42 - Type 2 diabetes mellitus with diabetic polyneuropathy Status: Acute Assessment and Plan: Sliding scale insulin. Check beta hydroxybutyrate Continue Lyrica Plan DVT prophylaxis -heparin drip Nutrition - NPO Code Status - Full Code Discussed with cardiology Total Critical Care Time - 35 minutes Due to a high probability of clinically significant, life threatening deterioration, the patient required my highest level of preparedness to intervene emergently and I personally spent this critical care time directly and personally managing the patient. This critical care time included obtaining a history; examining the patient; pulse oximetry; ordering and review of studies; arranging urgent treatment with development of a management plan; evaluation of patient's response to treatment; frequent reassessment; and discussions with other providers. It was exclusive of separately billable procedures and treating other patients and teaching time. Please see Assessment and Plan section and the rest of the note for further information on patient assessment and treatment Livestock Trader Consult Note Consult date: 08/15/23 Reason for consult: VFib HPI: John Cifuentes Fran is a 63 year old male history of coronary artery disease, prior coronary bypass graft (2 vessel), chronic atrial fibrillation on Eliquis, obstructive sleep apnea, essential hypertension, ischemic cardiomyopathy as well as right-sided heart failure?was admitted with VFib/VT arrest and SC. Patient was recently admitted t
[2023-08-15 09:46] LABS: Anion Gap 9 mmol/L (8-16); Blood Urea Nitrogen 23 mg/dL (9-20); Calcium 8.8 mg/dL (8.4-10.2); Carbon Dioxide 28 mmol/L (22-30); Chloride 98 mmol/L (98-107); Estimated CRCL calculation 65 ml/min; Estimated Glomerular Filt Rate 56; Glucose 267 mg/dL (65-110); Potassium 4.7 mmol/L (3.4-5.0); Sodium 135 mmol/L (137-145)
[2023-08-15 09:48] LABS: Creatine Kinase 136 U/L (55-170)
[2023-08-15 09:50] LABS: Glucose Point of Care 228 mg/dl (65-105)
[2023-08-15 09:53] LABS: Beta-Hydroxybutyrate/Acetoacetate 0.15 mmol/L (0.02-0.27)
[2023-08-15] MEDS: SODIUM CHLORIDE 0.9% IV 500 ML IV CONT (10:04)
[2023-08-15] MEDS: INSULIN GLARGINE (*BKC) 100 UNITS/ML 15 UNITS SUB-Q (10:08)
--- NOTE | 2023-08-15 10:45 | ECG_ITS ---
Measurements Intervals [place] Rate: 93 P: [place]: 0 QRS: 70 QRSD: 98 T: 213 QT: 266 QTc: 332 Interpretive Statements SINUS RHYTHM LOW QRS VOLTAGE IN PRECORDIAL LEADS Electronically Signed On 08-15-2023 11:42:17 QUALITY CONTROL CHEMIST by Samuel Nelson M.D.
[2023-08-15 11:15] LABS: Digoxin 1.7 ng/mL (0.8-2.0)
[2023-08-15] MEDS: INSULIN ASPART (*BKC) 100 UNITS/ML SUB-Q ×3 (11:35→20:49)
[2023-08-15 11:41] LABS: Glucose Point of Care 211 mg/dl (65-105)
[2023-08-15] MEDS: LIDOCAINE 5% PATCH 1 PATCH TRANSDERM (12:37)
[2023-08-15 13:22] LABS: Partial Thromboplastin Time 80.6 SECONDS (22.3-36.8)
[2023-08-15 16:38] LABS: Glucose Point of Care 257 mg/dl (65-105)
[2023-08-15] MEDS: ARTIFICIAL TEARS OPHTH SOLN 15 ML BOTTLE 1 DROP EACH EYE (16:46)
[2023-08-15 19:33] LABS: Partial Thromboplastin Time 28.5 SECONDS (22.3-36.8)
[2023-08-15] MEDS: HEPARIN SODIUM 5,000 UNITS/ML VIAL 4000 UNITS IV PUSH (19:50)
[2023-08-15] MEDS: METOPROLOL TARTRATE 25 MG TABLET PO (20:33)
[2023-08-15] MEDS: ATORVASTATIN 40 MG TABLET PO (20:33)
[2023-08-15] MEDS: traZODone HCL 50 MG TABLET PO (20:34)
[2023-08-15 20:56] LABS: Glucose Point of Care 202 mg/dl (65-105)
[2023-08-16] VITALS (18 sets, daily range): BP systolic 91–129; BP diastolic 60–93; PULSE 80–101; RESP 12–24; TEMP 36.7–37.1; O2SAT 92–100
[2023-08-16 01:53] LABS: Partial Thromboplastin Time 57.9 SECONDS (22.3-36.8)
[2023-08-16] MEDS: HEPARIN SODIUM 5,000 UNITS/ML VIAL 3500 UNITS IV PUSH (03:03)
[2023-08-16] MEDS: HYDROmorphone HCL INJ (*CRX) 1 MG/ML SYR 0.5 MG IV PUSH ×5 (03:06→21:27)
[2023-08-16] MEDS: AMIODARONE 360 MG/D5W 200 ML 360 MG/200 ML BAG 16.67 MG IV CONT ×2 (06:16→19:59)
[2023-08-16 07:38] LABS: Glucose Point of Care 206 mg/dl (65-105)
[2023-08-16 08:02] LABS: Hematocrit 42.1 % (42.0-52.0); Hemoglobin 13.1 g/dL (14.0-18.0); Mean Corpuscular HGB Conc 31.1 g/dl (32-36); Mean Corpuscular Hemoglobin 28.8 pg (26-34); Mean Corpuscular Volume 92.5 fl (80-100); Mean Platelet Volume 9.7 fl (7.4-10.4); Platelet Count Result 148 k/mm3 (150-375); Red Blood Count 4.55 M/mm3 (4.6-6.20); Red Cell Distribution Width 14.8 % (11.5-14.5); White Blood Count 9.6 K/mm3 (4.5-10.0)
[2023-08-16 08:18] LABS: Alanine Aminotransferase 45 U/L (6-50); Albumin Level 3.7 g/dL (3.5-5.1); Alkaline Phosphatase 115 U/L (38-126); Anion Gap 5 mmol/L (8-16); Aspartate Amino Transferase 32 U/L (17-59); Bilirubin,Total 0.7 mg/dL (0.2-1.3); Blood Urea Nitrogen 17 mg/dL (9-20); Calcium 8.4 mg/dL (8.4-10.2); Carbon Dioxide 32 mmol/L (22-30); Chloride 99 mmol/L (98-107); Estimated CRCL calculation 103 ml/min; Estimated Glomerular Filt Rate > 60; Glucose 190 mg/dL (65-110); Magnesium 2.2 mg/dL (1.6-2.3); Potassium 3.6 mmol/L (3.4-5.0); Sodium 136 mmol/L (137-145)
[2023-08-16] MEDS: ASPIRIN 81 MG CHEWABLE TABLET PO (08:27)
[2023-08-16] MEDS: METOPROLOL TARTRATE 25 MG TABLET PO ×2 (08:27→20:00)
[2023-08-16] MEDS: BACLOFEN 10 MG TABLET PO ×2 (08:28→17:15)
[2023-08-16] MEDS: CLOPIDOGREL BISULFATE 75 MG TABLET PO (08:28)
[2023-08-16] MEDS: methiMAzole 5 MG TAB 15 MG PO (08:28)
[2023-08-16] MEDS: PREGABALIN (*CRX) 50 MG CAPSULE 100 MG PO ×2 (08:29→17:15)
[2023-08-16] MEDS: LIDOCAINE 5% PATCH 1 PATCH TRANSDERM (08:29)
[2023-08-16 08:45] LABS: Partial Thromboplastin Time 86.8 SECONDS (22.3-36.8)
--- NOTE | 2023-08-16 09:24 | WPDINTPN ---
Progress Note: A&P Assessment and Plan (1) Atrial fibrillation with rapid ventricular response: Code(s): I48.91 - Unspecified atrial fibrillation Status: Acute Assessment and Plan: Currently in sinus rhythm Continue amiodarone and heparin infusion (2) Ventricular fibrillation: Code(s): I49.01 - Ventricular fibrillation Status: Acute Assessment and Plan: Monitor and replace electrolytes including low potassium Continue amiodarone and heparin Echocardiogram ordered and pending Digoxin level in therapeutic range. Digoxin is on hold for now as per Cardiology Continue aspirin Plavix statin and beta-jose Echo pending Cardiology consulted and following (3) ACS (acute coronary syndrome): Code(s): I24.9 - Acute ischemic heart disease, unspecified Status: Acute Assessment and Plan: Patient has history of coronary disease status post CABG. Patient was recently admitted to [facility] with NSTEMI and underwent cardiac catheterization which showed Cardiac catheterization 07/03 Post-op Diagnosis: 1. Significant mid LAD disease. QUALITY ASSURANCE MANAGER of the proximal LCX. The proximal-mid portion of the RCA has a moderate stenosis. There are well-formed right to left collaterals filling the LCX/OM system.? 2. Patent GARSIA to LAD bypass graft 3. Occluded SVG bypass graft 4. No other bypass grafts visualized. 5. Left ventricular end-diastolic pressure of 21mmHg His troponins elevated and he had abnormal EKG. Continue heparin infusion Continue aspirin, beta-jose statin and Plavix Cardiology has been consulted and will make a decision on further evaluation interventions (4) Coronary artery disease: Onset Date: ~2001 Code(s): I25.10 - Atherosclerotic heart disease of [place] coronary artery without angina pectoris Status: Acute Assessment and Plan: See above (5) HERNAN (obstructive sleep apnea): Code(s): G47.33 - Obstructive sleep apnea (adult) (pediatric) Status: Acute Assessment and Plan: Home CPAP ordered (6) JESUS (acute kidney injury): Code(s): N17.9 - Acute kidney failure, unspecified Status: Acute Assessment and Plan: Creatinine mildly elevated to 1.4 on presentation Patient was given small amount IV fluids and creatinine has normalized CK level Monitor urine output electrolytes and creatinine (7) COPD (chronic obstructive pulmonary disease): Code(s): J44.9 - Chronic obstructive pulmonary disease, unspecified Status: Acute Assessment and Plan: Not in exacerbation Continue bronchodilators (8) Type 2 diabetes mellitus with polyneuropathy: Code(s): E11.42 - Type 2 diabetes mellitus with diabetic polyneuropathy Status: Acute Assessment and Plan: Sliding scale insulin. Normal beta hydroxybutyrate Continue Jardiance Added lantus while inpatient continue Lyrica (9) Chest pain: Code(s): R07.9 - Chest pain, unspecified Status: Acute Assessment and Plan: Current chest pain is musculoskeletal from him receiving CPR and patient is tender on sternum and joints Lidocaine patch ordered Plan DVT prophylaxis -heparin drip Nutrition - NPO Code Status - Full Code Total Critical Care Time - 30 minutes Due to a high probability of clinically significant, life threatening deterioration, the patient required my highest level of preparedness to intervene emergently and I personally spent this critical care time directly and personally managing the patient. This critical care time included obtaining a history; examining the patient; pulse oximetry; ordering and review of studies; arranging urgent treatment with development of a management plan; evaluation of patient's response to treatment; frequent reassessment; and discussions with other providers. It was exclusive of separately billable procedures and treating other patients and teaching time. Please see Assessment and Plan section
--- NOTE | 2023-08-16 09:58 | PM.PNCARD ---
Progress Note: A&P Assessment and Plan (1) Ventricular fibrillation: Code(s): I49.01 - Ventricular fibrillation Status: Acute (2) Cardiomyopathy: Qualifiers: Cardiomyopathy type: unspecified Qualified Code(s): I42.9 - Cardiomyopathy, unspecified Code(s): I42.9 - Cardiomyopathy, unspecified Status: Acute (3) Coronary artery disease: Onset Date: ~2001 Code(s): I25.10 - Atherosclerotic heart disease of [place] coronary artery without angina pectoris Status: Acute Plan This is a 63-year-old man with chronic coronary artery disease at which was evaluated angiographically in mid June by Dr. Carvajal as detailed in the chart. He presents to the hospital after abrupt out of hospital VF arrest. He does have mildly depressed LV systolic function. He is neurologically intact and hemodynamically stable. They ideal recommendation for this is to implant a cardioverter/defibrillator device. [facility]. We will attempt to transfer this gentleman to [facility] to see my partner, Dr. Lynne Henao MD [facility] Subjective Date/time seen: Date of service: 08/16/23 09:58 Interval history: Follow-up visit in this 63-year-old man with chronic ischemic heart disease, mild LV systolic dysfunction, chronic back pain syndrome now with out of hospital VF arrest from which he was resuscitated over the weekend. The patient is neurologically intact stable without any active cardiovascular complaints at this time his principal complaints have to be with being kept NPO as well as chronic back pain. Exam Const: General: comfortable Other: Obese short statured man complaining of chronic back pain otherwise no cardiovascular complaints at this time HENMT: Mouth: Yes moist mucous membranes Eyes: Sclera: sclerae normal Neck: Neck: supple Other: JVD difficult to assess given his body habitus Carotid pulses are intact bilaterally Resp: Effort & Inspection: normal respiratory effort Auscultation: clear to auscultation bilaterally Cardio: Rate: regular rate Rhythm: regular rhythm Other: PMI difficult to palpate no obvious murmur GI: GI Palp: Yes Soft to palpation Auscultation: normal bowel sounds Skin: General skin exam: normal color Neuro: Other: Alert and oriented x3 Extrem: Other: No edema, adequate per Objective Data Vital Signs Vital Signs: Vital Signs - 24 hr 08/15/23 10:00 08/15/23 10:00 08/15/23 12:00 Temperature Pulse Rate 93 93 94 Respiratory Rate 22 H Blood Pressure 105/77 Pulse Oximetry 93 Oxygen Delivery Oxygen Flow Rate Fraction of Inspired Oxygen 08/15/23 12:00 08/15/23 14:24 08/15/23 14:00 Temperature 36.9 C 36.3 C L Pulse Rate 94 94 93 Respiratory Rate 18 17 Blood Pressure 101/74 111/84 Pulse Oximetry 92 93 Oxygen Delivery Oxygen Flow Rate Fraction of Inspired Oxygen 08/15/23 16:39 08/15/23 16:43 08/15/23 16:00 Temperature 36.4 C Pulse Rate 93 95 92 Respiratory Rate 23 H Blood Pressure 108/53 L Pulse Oximetry 96 Oxygen Delivery Oxygen Flow Rate Fraction of Inspired Oxygen 08/15/23 18:00 08/15/23 18:00 08/15/23 20:33 Temperature Pulse Rate 93 93 94 Respiratory Rate 12 Blood Pressure 103/61 Pulse Oximetry 98 Oxygen Delivery Oxygen Flow Rate Fraction of Inspired Oxygen 08/15/23 20:00 08/15/23 20:00 08/15/23 20:00 Temperature Pulse Rate 93 93 Respiratory Rate 16 Blood Pressure 109/65 Pulse Oximetry 96 98 Oxygen Delivery Oxygen Flow Rate 2 Fraction of Inspired Oxygen 08/15/23 22:00 08/15/23 22:00 08/16/23 00:00 Temperature Pulse Rate 93 93 Respiratory Rate 16 Blood Pressure 104/64 Pulse Oximetry 95 95 Oxygen Delivery Oxygen Flow Rate 2 Fraction of Inspired
[2023-08-16 11:57] LABS: Glucose Point of Care 299 mg/dl (65-105)
[2023-08-16] MEDS: HEPARIN SOD/D5W 100 UNITS/ML 25,000 UNITS/250 ML BAG 19 UNITS IV CONT (12:16)
[2023-08-16] MEDS: INSULIN ASPART (*BKC) 100 UNITS/ML SUB-Q ×2 (12:17→17:15)
[2023-08-16 14:37] LABS: Partial Thromboplastin Time 69.8 SECONDS (22.3-36.8)
[2023-08-16 16:40] LABS: Glucose Point of Care 283 mg/dl (65-105)
[2023-08-16] MEDS: ATORVASTATIN 40 MG TABLET PO (19:59)
[2023-08-16] MEDS: DICLOFENAC SODIUM 1% 100 GM GEL (*BKC) 1 APPLIC TOPICAL (20:00)
[2023-08-16] MEDS: traZODone HCL 50 MG TABLET PO (20:00)
[2023-08-16 20:21] LABS: Glucose Point of Care 175 mg/dl (65-105)
[2023-08-17] VITALS (28 sets, daily range): BP systolic 99–134; BP diastolic 64–91; PULSE 75–104; RESP 14–23; TEMP 36.4–36.9; O2SAT 91–100
[2023-08-17] MEDS: HEPARIN SOD/D5W 100 UNITS/ML 25,000 UNITS/250 ML BAG 19 UNITS IV CONT ×2 (01:15→13:47)
[2023-08-17] MEDS: HYDROmorphone HCL INJ (*CRX) 1 MG/ML SYR 0.5 MG IV PUSH ×5 (03:35→20:20)
[2023-08-17 04:59] LABS: Hematocrit 42.5 % (42.0-52.0); Hemoglobin 13.1 g/dL (14.0-18.0); Mean Corpuscular HGB Conc 30.8 g/dl (32-36); Mean Corpuscular Hemoglobin 28.9 pg (26-34); Mean Corpuscular Volume 93.6 fl (80-100); Mean Platelet Volume 9.8 fl (7.4-10.4); Platelet Count Result 144 k/mm3 (150-375); Red Blood Count 4.54 M/mm3 (4.6-6.20); Red Cell Distribution Width 14.6 % (11.5-14.5); White Blood Count 8.4 K/mm3 (4.5-10.0)
[2023-08-17 05:10] LABS: Alanine Aminotransferase 35 U/L (6-50); Albumin Level 3.8 g/dL (3.5-5.1); Alkaline Phosphatase 113 U/L (38-126); Anion Gap 4 mmol/L (8-16); Aspartate Amino Transferase 23 U/L (17-59); Blood Urea Nitrogen 14 mg/dL (9-20); Calcium 8.8 mg/dL (8.4-10.2); Carbon Dioxide 32 mmol/L (22-30); Chloride 98 mmol/L (98-107); Estimated CRCL calculation 103 ml/min; Estimated Glomerular Filt Rate > 60; Glucose 160 mg/dL (65-110); Magnesium 2.3 mg/dL (1.6-2.3); Potassium 3.7 mmol/L (3.4-5.0); Sodium 134 mmol/L (137-145)
[2023-08-17 07:38] LABS: Glucose Point of Care 165 mg/dl (65-105)
[2023-08-17] MEDS: INSULIN GLARGINE (*BKC) 100 UNITS/ML 15 UNITS SUB-Q (08:54)
[2023-08-17] MEDS: methiMAzole 5 MG TAB 15 MG PO (09:03)
[2023-08-17] MEDS: PREGABALIN (*CRX) 50 MG CAPSULE 100 MG PO ×2 (09:03→16:11)
[2023-08-17] MEDS: ASPIRIN 81 MG CHEWABLE TABLET PO (09:03)
[2023-08-17] MEDS: METOPROLOL TARTRATE 25 MG TABLET PO ×2 (09:03→20:19)
[2023-08-17] MEDS: BACLOFEN 10 MG TABLET PO ×2 (09:03→16:11)
[2023-08-17] MEDS: CLOPIDOGREL BISULFATE 75 MG TABLET PO (09:03)
[2023-08-17] MEDS: EMPAGLIFLOZIN 25 MG TABLET PO (09:03)
[2023-08-17] MEDS: LIDOCAINE 5% PATCH 1 PATCH TRANSDERM (09:04)
--- NOTE | 2023-08-17 09:50 | PM.PNCARD ---
Progress Note: A&P Assessment and Plan (1) Ventricular fibrillation: Code(s): I49.01 - Ventricular fibrillation Status: Acute (2) Cardiomyopathy: Qualifiers: Cardiomyopathy type: unspecified Qualified Code(s): I42.9 - Cardiomyopathy, unspecified Code(s): I42.9 - Cardiomyopathy, unspecified Status: Acute (3) Coronary artery disease: Onset Date: ~2001 Code(s): I25.10 - Atherosclerotic heart disease of [place] coronary artery without angina pectoris Status: Acute Plan Patient has been accepted by [facility] for ICD evaluation, awaiting transfer. He remains hemodynamically and electrically stable at this time. Recommend to continue Amiodarone and Heparin drips at this time. Continue PO Metoprolol. Continue close telemetry monitoring. Subjective Date/time seen: 08/17/23 09:50 Interval history: Reason for visit: Out of hospital VFIB cardiac arrest. HPI: 63-year-old male with CAD, history of remote CABG and mitral valve repair; persistent atrial fibrillation on anticoagulation with apixaban, hypertension, diabetes mellitus, history of CVA, COPD on home oxygen, chronic pain on outpatient opioids; chewing tobacco abuse. Patient was recently hospitalized in June [address] elevation [place] and cardiac catheterization performed on 06/23/2023 reportedly showed significant mid LAD disease with patent GARSIA to LAD, HOUSING COORDINATOR of the proximal LCX, moderate stenosis proximal-mid RCA, right to left collaterals filling the LCX/OM system; patent GARSIA, occluded SVG grafts. ?He was managed medically. He presented to [facility] Emergency Room last night after patient was found to have VFib cardiac arrest which required resuscitation and multiple shocks.? The case was discussed with the emergency room physician.? Initially, cardiac catheterization lab was activated.? I gathered more information about the patient's cardiac history including recent cardiac catheterization with the ER physician Sergio.? His EKG showed diffuse ST segment segment depression.? Case was also discussed with ICU physician. Given patient's recent cardiac catheterization, EKG findings and patient being on anticoagulation with apixaban, emergent cardiac catheterization was not deemed necessary last night.? Patient was initiated on amiodarone IV, apixaban was put on hold and patient was initiated on anticoagulation with unfractionated heparin, and was later admitted to ICU for further observation. At the time of evaluation today, patient is alert with complaints of generalized body pain.? Information is gathered from the patient, his brother and his friend were present in the patient's room.? As per patient's friend, patient was shaky last night followed by episode of unresponsiveness.? EMS was called and patient was shocked multiple times for what was reported as Vfib cardiac arrest. EKG at presentation on my personal interpretation showed atrial fibrillation with RVR, diffuse ST segment depression with ST elevation in AVR.? Troponins mildly elevated with current peak troponin of 1.4.? Chest x-ray shows??Cardiomegaly with mild pulmonary edema. Recent echocardiogram from 06/22/2023 reportedly showed moderate LVH, LVEF 45-50%, mild RV enlargement, [id number] MR, mildly calcified aortic valve. Since admission to the ICU, patient has been complaining of generalized body pain.? He is on opioid treatment as an outpatient.? His brother reports that patient may have consumed excessive oxycodone pills as 54 pills were missing the bottle for last couple of days. On telemetry, patient has converted to sinus rhythm with IV amiodarone. Date of service 08/16: Follow-up visit in this 63-year-old man with chronic ischemic heart disease, mild LV systolic dysfunction, chronic back pain syndrome now with out of hospital VF arrest from which he was resuscitated over the weekend.? The patient is neurologically intact stable without any active cardiovascular complaints at
[2023-08-17] MEDS: INSULIN ASPART (*BKC) 100 UNITS/ML SUB-Q ×2 (11:41→20:27)
[2023-08-17 11:47] LABS: Glucose Point of Care 220 mg/dl (65-105)
--- NOTE | 2023-08-17 11:50 | WPDINTPN ---
Progress Note: A&P Assessment and Plan (1) Atrial fibrillation with rapid ventricular response: Code(s): I48.91 - Unspecified atrial fibrillation Status: Acute Assessment and Plan: Remains in AFib, rate controlled Continue amiodarone and heparin infusion (2) Ventricular fibrillation: Code(s): I49.01 - Ventricular fibrillation Status: Acute Assessment and Plan: Monitor and replace electrolytes including low potassium -Continue amiodarone and heparin infusion -will keep potassium > 4.0 and magnesium> 2.0 -Digoxin level in therapeutic range. Digoxin is on hold for now as per Cardiology -Continue aspirin Plavix statin and p.o. metoprolol Appreciate cardiology evaluation recommendations, patient has been accepted at [facility] for an AICD placement, awaiting bed 06/22/2023 Echocardiogram Summary ? 1. Left ventricular chamber dimension is normal. ? 2. Left ventricular systolic function is mildly reduced, estimated at 45-50%. ? 3. There is moderately increased left ventricular wall thickness. ? 4. The left ventricular diastolic function is indeterminate. ? 5. Right ventricular chamber dimension is mildly enlarged. ? 6. Right ventricular systolic function is reduced. ? 7. Left atrial chamber dimension is mildly enlarged. ? 8. There is mild aortic valve calcification. ? 9. There is mild to moderate mitral valve regurgitation. ? 10. There is mild tricuspid valve regurgitation. ? 11. Poor echocardiographic study with limited useful information due to poor windows and his AFib with RVR.? Wall motion abnormalities cannot be excluded. Recommend repeat study when heart rate is better controlled. (3) ACS (acute coronary syndrome): Code(s): I24.9 - Acute ischemic heart disease, unspecified Status: Acute Assessment and Plan: Patient has history of coronary disease status post CABG. Patient was recently admitted to [facility] with NSTEMI and underwent cardiac catheterization as under Cardiac catheterization 07/03 Post-op Diagnosis: 1. Significant mid LAD disease. WATER OPERATOR of the proximal LCX. The proximal-mid portion of the RCA has a moderate stenosis. There are well-formed right to left collaterals filling the LCX/OM system.? 2. Patent GARSIA to LAD bypass graft 3. Occluded SVG bypass graft 4. No other bypass grafts visualized. 5. Left ventricular end-diastolic pressure of 21mmHg His troponins elevated and he had abnormal EKG., no chest pain -Continue heparin infusion -Continue aspirin, beta-jose statin and Plavix -appreciate cardiology evaluation recommendation (4) Coronary artery disease: Onset Date: ~2001 Code(s): I25.10 - Atherosclerotic heart disease of [place] coronary artery without angina pectoris Status: Acute Assessment and Plan: See above (5) HERNAN (obstructive sleep apnea): Code(s): G47.33 - Obstructive sleep apnea (adult) (pediatric) Status: Acute Assessment and Plan: Home CPAP ordered (6) JESUS (acute kidney injury): Code(s): N17.9 - Acute kidney failure, unspecified Status: Acute Assessment and Plan: Creatinine mildly elevated to 1.4 on admission Patient was given small amount IV fluids and creatinine has normalized CK level Monitor urine output electrolytes and creatinine (7) COPD (chronic obstructive pulmonary disease): Code(s): J44.9 - Chronic obstructive pulmonary disease, unspecified Status: Acute Assessment and Plan: Not in exacerbation Continue bronchodilators (8) Type 2 diabetes mellitus with polyneuropathy: Code(s): E11.42 - Type 2 diabetes mellitus with diabetic polyneuropathy Status: Acute Assessment and Plan: Sliding scale insulin. Normal beta hydroxybutyrate Continue Jardiance Continue Lantus continue Lyrica (9) Chest pain: Code(s): R07.9 - Chest pain, unspecified Status: Acute Assessment and Plan: Current chest pain
[2023-08-17] MEDS: POTASSIUM CHLORIDE 20 MEQ ER TABLET 40 MEQ PO (13:25)
[2023-08-17] MEDS: AMIODARONE 360 MG/D5W 200 ML 360 MG/200 ML BAG 16.67 MG IV CONT (13:44)
[2023-08-17 16:28] LABS: Glucose Point of Care 197 mg/dl (65-105)
[2023-08-17] MEDS: DICLOFENAC SODIUM 1% 100 GM GEL (*BKC) 1 APPLIC TOPICAL (20:19)
[2023-08-17] MEDS: ATORVASTATIN 40 MG TABLET PO (20:19)
[2023-08-17] MEDS: traZODone HCL 50 MG TABLET PO (20:19)
[2023-08-17 20:29] LABS: Glucose Point of Care 247 mg/dl (65-105)
[2023-08-18] VITALS (21 sets, daily range): BP systolic 103–154; BP diastolic 67–94; PULSE 72–109; RESP 15–22; TEMP 36.2–36.8; O2SAT 94–98
[2023-08-18] MEDS: AMIODARONE 360 MG/D5W 200 ML 360 MG/200 ML BAG 16.67 MG IV CONT ×2 (01:13→20:32)
[2023-08-18] MEDS: HYDROmorphone HCL INJ (*CRX) 1 MG/ML SYR 0.5 MG IV PUSH ×3 (02:46→20:33)
[2023-08-18] MEDS: HEPARIN SOD/D5W 100 UNITS/ML 25,000 UNITS/250 ML BAG 19 UNITS IV CONT (02:47)
[2023-08-18 04:21] LABS: Hematocrit 43.3 % (42.0-52.0); Hemoglobin 13.5 g/dL (14.0-18.0); Mean Corpuscular HGB Conc 31.2 g/dl (32-36); Mean Corpuscular Hemoglobin 28.7 pg (26-34); Mean Corpuscular Volume 91.9 fl (80-100); Mean Platelet Volume 9.4 fl (7.4-10.4); Platelet Count Result 143 k/mm3 (150-375); Red Blood Count 4.71 M/mm3 (4.6-6.20); Red Cell Distribution Width 14.7 % (11.5-14.5); White Blood Count 8.9 K/mm3 (4.5-10.0)
[2023-08-18 04:32] LABS: Alanine Aminotransferase 30 U/L (6-50); Alkaline Phosphatase 112 U/L (38-126); Anion Gap 5 mmol/L (8-16); Aspartate Amino Transferase 18 U/L (17-59); Bilirubin,Total 0.9 mg/dL (0.2-1.3); Blood Urea Nitrogen 16 mg/dL (9-20); Carbon Dioxide 31 mmol/L (22-30); Chloride 98 mmol/L (98-107); Estimated CRCL calculation 103 ml/min; Estimated Glomerular Filt Rate > 60; Glucose 182 mg/dL (65-110); Magnesium 2.2 mg/dL (1.6-2.3); Potassium 3.8 mmol/L (3.4-5.0); Sodium 134 mmol/L (137-145)
[2023-08-18 04:35] LABS: Partial Thromboplastin Time 66.7 SECONDS (22.3-36.8)
[2023-08-18] MEDS: HEPARIN SODIUM 5,000 UNITS/ML VIAL 3500 UNITS IV PUSH (05:20)
[2023-08-18 07:30] LABS: Glucose Point of Care 173 mg/dl (65-105)
[2023-08-18] MEDS: PREGABALIN (*CRX) 50 MG CAPSULE 100 MG PO ×2 (08:24→17:10)
[2023-08-18] MEDS: methiMAzole 5 MG TAB 15 MG PO (08:25)
[2023-08-18] MEDS: CLOPIDOGREL BISULFATE 75 MG TABLET PO (08:25)
[2023-08-18] MEDS: BACLOFEN 10 MG TABLET PO ×2 (08:25→17:11)
[2023-08-18] MEDS: ASPIRIN 81 MG CHEWABLE TABLET PO (08:25)
[2023-08-18] MEDS: METOPROLOL TARTRATE 25 MG TABLET PO ×2 (08:25→20:33)
[2023-08-18] MEDS: EMPAGLIFLOZIN 25 MG TABLET PO (08:25)
[2023-08-18] MEDS: LIDOCAINE 5% PATCH 1 PATCH TRANSDERM (08:25)
[2023-08-18] MEDS: INSULIN GLARGINE (*BKC) 100 UNITS/ML 15 UNITS SUB-Q (08:26)
[2023-08-18 11:17] LABS: Glucose Point of Care 276 mg/dl (65-105)
[2023-08-18] MEDS: INSULIN ASPART (*BKC) 100 UNITS/ML SUB-Q (11:47)
[2023-08-18 12:14] LABS: Partial Thromboplastin Time 101.5 SECONDS (22.3-36.8)
--- NOTE | 2023-08-18 13:48 | WPDINTPN ---
Progress Note: A&P Assessment and Plan (1) Atrial fibrillation with rapid ventricular response: Code(s): I48.91 - Unspecified atrial fibrillation Status: Acute Assessment and Plan: Remains in AFib, rate controlled Continue amiodarone and heparin infusion (2) Ventricular fibrillation: Code(s): I49.01 - Ventricular fibrillation Status: Acute Assessment and Plan: Monitor and replace electrolytes including low potassium -Continue amiodarone and heparin infusion -will keep potassium > 4.0 and magnesium> 2.0 -Digoxin level in therapeutic range. Digoxin is on hold for now as per Cardiology -Continue aspirin Plavix statin and p.o. metoprolol Appreciate cardiology evaluation recommendations, patient has been accepted at [facility] for an AICD placement, awaiting bed 06/22/2023 Echocardiogram Summary ? 1. Left ventricular chamber dimension is normal. ? 2. Left ventricular systolic function is mildly reduced, estimated at 45-50%. ? 3. There is moderately increased left ventricular wall thickness. ? 4. The left ventricular diastolic function is indeterminate. ? 5. Right ventricular chamber dimension is mildly enlarged. ? 6. Right ventricular systolic function is reduced. ? 7. Left atrial chamber dimension is mildly enlarged. ? 8. There is mild aortic valve calcification. ? 9. There is mild to moderate mitral valve regurgitation. ? 10. There is mild tricuspid valve regurgitation. ? 11. Poor echocardiographic study with limited useful information due to poor windows and his AFib with RVR.? Wall motion abnormalities cannot be excluded. Recommend repeat study when heart rate is better controlled. (3) ACS (acute coronary syndrome): Code(s): I24.9 - Acute ischemic heart disease, unspecified Status: Acute Assessment and Plan: Patient has history of coronary disease status post CABG. Patient was recently admitted to [facility] with NSTEMI and underwent cardiac catheterization as under Cardiac catheterization 07/03 Post-op Diagnosis: 1. Significant mid LAD disease. LOSS PREVENTION SPECIALIST of the proximal LCX. The proximal-mid portion of the RCA has a moderate stenosis. There are well-formed right to left collaterals filling the LCX/OM system.? 2. Patent GARSIA to LAD bypass graft 3. Occluded SVG bypass graft 4. No other bypass grafts visualized. 5. Left ventricular end-diastolic pressure of 21mmHg His troponins elevated and he had abnormal EKG., no chest pain -Continue heparin infusion -Continue aspirin, beta-jose statin and Plavix -appreciate cardiology evaluation recommendation (4) Coronary artery disease: Onset Date: ~2001 Code(s): I25.10 - Atherosclerotic heart disease of [place] coronary artery without angina pectoris Status: Acute Assessment and Plan: See above (5) HERNAN (obstructive sleep apnea): Code(s): G47.33 - Obstructive sleep apnea (adult) (pediatric) Status: Acute Assessment and Plan: Home CPAP ordered (6) JESUS (acute kidney injury): Code(s): N17.9 - Acute kidney failure, unspecified Status: Acute Assessment and Plan: Creatinine mildly elevated to 1.4 on admission Patient was given small amount IV fluids and creatinine has normalized CK level Monitor urine output electrolytes and creatinine (7) COPD (chronic obstructive pulmonary disease): Code(s): J44.9 - Chronic obstructive pulmonary disease, unspecified Status: Acute Assessment and Plan: Not in exacerbation Continue bronchodilators (8) Type 2 diabetes mellitus with polyneuropathy: Code(s): E11.42 - Type 2 diabetes mellitus with diabetic polyneuropathy Status: Acute Assessment and Plan: Sliding scale insulin. Normal beta hydroxybutyrate Continue Jardiance Continue Lantus continue Lyrica (9) Chest pain: Code(s): R07.9 - Chest pain, unspecified Status: Acute Assessment and Plan: Current chest pain
--- NOTE | 2023-08-18 14:15 | PM.PNCARD ---
Progress Note: A&P Assessment and Plan (1) Ventricular fibrillation: Code(s): I49.01 - Ventricular fibrillation Status: Acute (2) Cardiomyopathy: Qualifiers: Cardiomyopathy type: unspecified Qualified Code(s): I42.9 - Cardiomyopathy, unspecified Code(s): I42.9 - Cardiomyopathy, unspecified Status: Acute (3) Coronary artery disease: Onset Date: ~2001 Code(s): I25.10 - Atherosclerotic heart disease of [place] coronary artery without angina pectoris Status: Acute Plan Patient has been accepted by [facility] for [facility] evaluation, awaiting transfer. He remains hemodynamically and electrically stable at this time. Recommend to continue Amiodarone and Heparin drips at this time. Continue PO Metoprolol. Continue close telemetry monitoring. Subjective Date/time seen: 08/18/23 14:15 Interval history: Reason for visit: Out of hospital VFIB cardiac arrest. HPI: 63-year-old male with CAD, history of remote CABG and mitral valve repair; persistent atrial fibrillation on anticoagulation with apixaban, hypertension, diabetes mellitus, history of CVA, COPD on home oxygen, chronic pain on outpatient opioids; chewing tobacco abuse. Patient was recently hospitalized in June [address] elevation [place] and cardiac catheterization performed on 06/23/2023 reportedly showed significant mid LAD disease with patent GARSIA to LAD, SOLID WASTE MANAGEMENT ENGINEER of the proximal LCX, moderate stenosis proximal-mid RCA, right to left collaterals filling the LCX/OM system; patent GARSIA, occluded SVG grafts. ?He was managed medically. He presented to [facility] Emergency Room last night after patient was found to have VFib cardiac arrest which required resuscitation and multiple shocks.? The case was discussed with the emergency room physician.? Initially, cardiac catheterization lab was activated.? I gathered more information about the patient's cardiac history including recent cardiac catheterization with the ER physician Sergio.? His EKG showed diffuse ST segment segment depression.? Case was also discussed with ICU physician. Given patient's recent cardiac catheterization, EKG findings and patient being on anticoagulation with apixaban, emergent cardiac catheterization was not deemed necessary last night.? Patient was initiated on amiodarone IV, apixaban was put on hold and patient was initiated on anticoagulation with unfractionated heparin, and was later admitted to ICU for further observation. At the time of evaluation today, patient is alert with complaints of generalized body pain.? Information is gathered from the patient, his brother and his friend were present in the patient's room.? As per patient's friend, patient was shaky last night followed by episode of unresponsiveness.? EMS was called and patient was shocked multiple times for what was reported as Vfib cardiac arrest. EKG at presentation on my personal interpretation showed atrial fibrillation with RVR, diffuse ST segment depression with ST elevation in AVR.? Troponins mildly elevated with current peak troponin of 1.4.? Chest x-ray shows??Cardiomegaly with mild pulmonary edema. Recent echocardiogram from 06/22/2023 reportedly showed moderate LVH, LVEF 45-50%, mild RV enlargement, [id number] MR, mildly calcified aortic valve. Since admission to the ICU, patient has been complaining of generalized body pain.? He is on opioid treatment as an outpatient.? His brother reports that patient may have consumed excessive oxycodone pills as 54 pills were missing the bottle for last couple of days. On telemetry, patient has converted to sinus rhythm with IV amiodarone. Date of service 08/16: Follow-up visit in this 63-year-old man with chronic ischemic heart disease, mild LV systolic dysfunction, chronic back pain syndrome now with out of hospital VF arrest from which he was resuscitated over the weekend.? The patient is neurologically intact stable without any active cardiovascular complaints at
[2023-08-18 16:35] LABS: Glucose Point of Care 172 mg/dl (65-105)
[2023-08-18] MEDS: HEPARIN SOD/D5W 100 UNITS/ML 25,000 UNITS/250 ML BAG 21 UNITS IV CONT (16:39)
[2023-08-18] MEDS: oxyCODONE HCL (*CRX) 5 MG TAB IR PO (17:11)
--- NOTE | 2023-08-18 17:59 | PC.NURSE ---
This patient, John Peters, was transferred to [facility] on 08/18/23 at 1759. Personal belongings sent with patient. Report given to . Appropriate documentation sent with patient.
[2023-08-18 18:01] LABS: Partial Thromboplastin Time 85.6 SECONDS (22.3-36.8)
[2023-08-18] MEDS: traZODone HCL 50 MG TABLET PO (20:33)
[2023-08-18] MEDS: ATORVASTATIN 40 MG TABLET PO (20:33)
[2023-08-18] MEDS: DICLOFENAC SODIUM 1% 100 GM GEL (*BKC) 1 APPLIC TOPICAL (21:21)
[2023-08-18 21:23] LABS: Glucose Point of Care 191 mg/dl (65-105)
--- NOTE | 2023-08-18 22:07 | PC.NURSE ---
[facility] transfer line called for patient update - they will call on 08/19/23 for further updates or possible bed assignment.
[2023-08-19] VITALS (15 sets, daily range): BP systolic 105–120; BP diastolic 63–75; PULSE 80–125; RESP 15–22; TEMP 36.3–37.1; O2SAT 90–98
[2023-08-19] MEDS: HYDROmorphone HCL INJ (*CRX) 1 MG/ML SYR 0.5 MG IV PUSH ×4 (00:24→21:50)
[2023-08-19] MEDS: HEPARIN SOD/D5W 100 UNITS/ML 25,000 UNITS/250 ML BAG 21 UNITS IV CONT (04:17)
[2023-08-19 05:56] LABS: Hematocrit 40.8 % (42.0-52.0); Hemoglobin 12.6 g/dL (14.0-18.0); Mean Corpuscular HGB Conc 30.9 g/dl (32-36); Mean Corpuscular Hemoglobin 28.6 pg (26-34); Mean Corpuscular Volume 92.5 fl (80-100); Platelet Count Result 168 k/mm3 (150-375); Red Blood Count 4.41 M/mm3 (4.6-6.20); Red Cell Distribution Width 14.8 % (11.5-14.5)
[2023-08-19 06:11] LABS: Alanine Aminotransferase 24 U/L (6-50); Albumin Level 3.9 g/dL (3.5-5.1); Alkaline Phosphatase 110 U/L (38-126); Anion Gap 5 mmol/L (8-16); Aspartate Amino Transferase 17 U/L (17-59); Blood Urea Nitrogen 15 mg/dL (9-20); Calcium 8.8 mg/dL (8.4-10.2); Carbon Dioxide 33 mmol/L (22-30); Chloride 96 mmol/L (98-107); Estimated CRCL calculation 92 ml/min; Estimated Glomerular Filt Rate > 60; Glucose 147 mg/dL (65-110); Magnesium 2.3 mg/dL (1.6-2.3); Potassium 3.5 mmol/L (3.4-5.0); Sodium 134 mmol/L (137-145)
[2023-08-19 07:07] LABS: Partial Thromboplastin Time 45.8 SECONDS (22.3-36.8)
[2023-08-19 08:03] LABS: Glucose Point of Care 154 mg/dl (65-105)
[2023-08-19] MEDS: ASPIRIN 81 MG CHEWABLE TABLET PO (08:18)
[2023-08-19] MEDS: methiMAzole 5 MG TAB 15 MG PO (08:18)
[2023-08-19] MEDS: CLOPIDOGREL BISULFATE 75 MG TABLET PO (08:18)
[2023-08-19] MEDS: BACLOFEN 10 MG TABLET PO ×2 (08:18→16:56)
[2023-08-19] MEDS: EMPAGLIFLOZIN 25 MG TABLET PO (08:19)
[2023-08-19] MEDS: LIDOCAINE 5% PATCH 1 PATCH TRANSDERM (08:19)
[2023-08-19] MEDS: PREGABALIN (*CRX) 50 MG CAPSULE 100 MG PO ×2 (08:19→16:56)
[2023-08-19] MEDS: METOPROLOL TARTRATE 25 MG TABLET PO ×2 (08:19→21:51)
[2023-08-19] MEDS: INSULIN GLARGINE (*BKC) 100 UNITS/ML 15 UNITS SUB-Q (08:19)
[2023-08-19] MEDS: oxyCODONE HCL (*CRX) 5 MG TAB IR PO ×2 (08:19→13:45)
[2023-08-19] MEDS: HEPARIN SODIUM 5,000 UNITS/ML VIAL 4000 UNITS IV PUSH (08:20)
[2023-08-19 11:56] LABS: Glucose Point of Care 172 mg/dl (65-105)
--- NOTE | 2023-08-19 13:05 | PM.PNCARD ---
Progress Note: A&P Assessment and Plan (1) Ventricular fibrillation: Code(s): I49.01 - Ventricular fibrillation Status: Acute (2) Cardiomyopathy: Qualifiers: Cardiomyopathy type: unspecified Qualified Code(s): I42.9 - Cardiomyopathy, unspecified Code(s): I42.9 - Cardiomyopathy, unspecified Status: Acute (3) Coronary artery disease: Onset Date: ~2001 Code(s): I25.10 - Atherosclerotic heart disease of [place] coronary artery without angina pectoris Status: Acute Plan Patient has been accepted by [facility] for [facility] evaluation, awaiting transfer. He remains hemodynamically and electrically stable at this time. Recommend to continue Amiodarone and Heparin drips at this time. Continue PO Metoprolol. Continue close telemetry monitoring. Subjective Date/time seen: 08/19/23 13:05 Interval history: Reason for visit: Out of hospital VFIB cardiac arrest. HPI: 63-year-old male with CAD, history of remote CABG and mitral valve repair; persistent atrial fibrillation on anticoagulation with apixaban, hypertension, diabetes mellitus, history of CVA, COPD on home oxygen, chronic pain on outpatient opioids; chewing tobacco abuse. Patient was recently hospitalized in June [address] elevation [place] and cardiac catheterization performed on 06/23/2023 reportedly showed significant mid LAD disease with patent GARSIA to LAD, SYSTEMS PROGRAM MANAGER of the proximal LCX, moderate stenosis proximal-mid RCA, right to left collaterals filling the LCX/OM system; patent GARSIA, occluded SVG grafts. ?He was managed medically. He presented to [facility] Emergency Room last night after patient was found to have VFib cardiac arrest which required resuscitation and multiple shocks.? The case was discussed with the emergency room physician.? Initially, cardiac catheterization lab was activated.? I gathered more information about the patient's cardiac history including recent cardiac catheterization with the ER physician Sergio.? His EKG showed diffuse ST segment segment depression.? Case was also discussed with ICU physician. Given patient's recent cardiac catheterization, EKG findings and patient being on anticoagulation with apixaban, emergent cardiac catheterization was not deemed necessary last night.? Patient was initiated on amiodarone IV, apixaban was put on hold and patient was initiated on anticoagulation with unfractionated heparin, and was later admitted to ICU for further observation. At the time of evaluation today, patient is alert with complaints of generalized body pain.? Information is gathered from the patient, his brother and his friend were present in the patient's room.? As per patient's friend, patient was shaky last night followed by episode of unresponsiveness.? EMS was called and patient was shocked multiple times for what was reported as Vfib cardiac arrest. EKG at presentation on my personal interpretation showed atrial fibrillation with RVR, diffuse ST segment depression with ST elevation in AVR.? Troponins mildly elevated with current peak troponin of 1.4.? Chest x-ray shows??Cardiomegaly with mild pulmonary edema. Recent echocardiogram from 06/22/2023 reportedly showed moderate LVH, LVEF 45-50%, mild RV enlargement, [id number] MR, mildly calcified aortic valve. Since admission to the ICU, patient has been complaining of generalized body pain.? He is on opioid treatment as an outpatient.? His brother reports that patient may have consumed excessive oxycodone pills as 54 pills were missing the bottle for last couple of days. On telemetry, patient has converted to sinus rhythm with IV amiodarone. Date of service 08/16: Follow-up visit in this 63-year-old man with chronic ischemic heart disease, mild LV systolic dysfunction, chronic back pain syndrome now with out of hospital VF arrest from which he was resuscitated over the weekend.? The patient is neurologically intact stable without any active cardiovascular complaints at
[2023-08-19 15:32] LABS: Partial Thromboplastin Time 101.4 SECONDS (22.3-36.8)
[2023-08-19 16:14] LABS: Glucose Point of Care 226 mg/dl (65-105)
[2023-08-19] MEDS: HEPARIN SOD/D5W 100 UNITS/ML 25,000 UNITS/250 ML BAG 25 UNITS IV CONT (16:56)
[2023-08-19] MEDS: INSULIN ASPART (*BKC) 100 UNITS/ML SUB-Q (16:56)
[2023-08-19] MEDS: AMIODARONE 360 MG/D5W 200 ML 360 MG/200 ML BAG 16.67 MG IV CONT (19:42)
[2023-08-19 20:53] LABS: Glucose Point of Care 199 mg/dl (65-105)
[2023-08-19] MEDS: ATORVASTATIN 40 MG TABLET PO (21:50)
[2023-08-19] MEDS: traZODone HCL 50 MG TABLET PO (21:51)
[2023-08-19] MEDS: DICLOFENAC SODIUM 1% 100 GM GEL (*BKC) 1 APPLIC TOPICAL (21:52)
[2023-08-19 22:03] LABS: Partial Thromboplastin Time 64.1 SECONDS (22.3-36.8)
[2023-08-19] MEDS: HEPARIN SODIUM 5,000 UNITS/ML VIAL 3500 UNITS IV PUSH (23:13)
[2023-08-20] VITALS: BP 117/74; PULSE 100; PULSE 95; RESP 20; TEMP 36.4; O2SAT 97; O2SAT 98
--- NOTE | 2023-08-20 00:26 | PC.NURSE ---
Spoke to brother Alton to let him know pt will transfer to [facility] room [id number]
[2023-08-20] MEDS: HYDROmorphone HCL INJ (*CRX) 1 MG/ML SYR 0.5 MG IV PUSH (01:08)
[2023-08-20 02:00] VITALS: PULSE 97
[2023-08-20 03:02] VITALS: RESP 14; O2SAT 97
[2023-08-20] MEDS: HEPARIN SOD/D5W 100 UNITS/ML 25,000 UNITS/250 ML BAG 27 UNITS IV CONT (03:30)
--- NOTE | 2023-08-20 03:30 | PC.NURSE ---
Called [facility] to check on status of trip at 0313, trip pushed back to 0600 due to 911 calls. Called receiving unit and let them know new ETA.
[2023-08-20 04:00] VITALS: BP 119/79; PULSE 102; PULSE 111; RESP 20; TEMP 36.2; O2SAT 90; O2SAT 97
--- NOTE | 2023-09-20 11:59 | PM.TDS ---
Transfer Discharge Sum: Prov Provider Date of admission: 08/15/23 00:17 Primary care physician: Azar Mccann, MD Admitting clinician: Samuel Nelson MD Attending physician on admission: Samuel Nelson Consults: 08/14/23 23:45 Consult to Physician Routine Comment: Consulting Provider: Samuel Nelson machine designer/MD group to consult: Abrasive Wheel Molder control cabinet assembler Reason for consultation: Stemi Has provider been notified: Yes 08/15/23 Cardiopulmonary Rehabilitation Consult Routine Comment: Consult Plan: Evaluate for Eligibility 08/15/23 00:18 Consult to Physician Routine Comment: Consulting Provider: Dennis Argueta Reason for consultation: ACS Has provider been notified: Yes Attending physician on discharge: Samuel Nelson Discharging clinician: Osman Henao Anticipated date of transfer: 08/19/23 Receiving physician/facility: [place] DS: Admitting Diagnosis Discharge Date 08/20/23 Admitting Diagnosis Ventricular fibrillation. Ischemic cardiomyopathy DS: Discharge Diagnosis Discharge Diagnosis Plan Status post VF arrest Transfer Discharge Sum: Med Medications Active and Home Medications: Home Medications metformin 500 mg tablet 1,000 mg PO Q12H #360 tabs 04/17/22 [Rx Confirmed 08/15/23] apixaban 5 mg tablet (Eliquis) 5 mg PO BID #180 tabs 06/11/22 [Rx Confirmed 08/15/23] empagliflozin 25 mg tablet (Jardiance) 25 mg PO DAILY #90 tabs 07/20/22 [Rx Confirmed 08/15/23] ipratropium 0.5 mg-albuterol 3 mg (2.5 mg base)/3 mL nebulization soln 3 ml inhalation QID PRN shortness of breath or wheezing #90 mL 07/20/22 [Rx Confirmed 08/15/23] atorvastatin 40 mg tablet 40 mg PO QHS #90 tabs 09/24/22 [Rx Confirmed 08/15/23] bumetanide 1 mg tablet 2 mg PO BID 30 days #60 tabs 11/20/22 [Rx Confirmed 08/15/23] digoxin 250 mcg (0.25 mg) tablet (Digitek) 250 mcg PO QAM 30 days #30 tabs 11/20/22 [Rx Confirmed 08/15/23] artificial tears with lanolin eye ointment 1 applic EACH EYE Q1-4H PRN Dry Eyes 01/17/23 [History Confirmed 08/15/23] potassium chloride 20 mEq tablet,extended release(part/cryst) 40 meq PO TID 01/17/23 [History Confirmed 08/15/23] trazodone 50 mg tablet 50 mg PO HS 01/17/23 [History Confirmed 08/15/23] semaglutide 14 mg tablet (Rybelsus) See Rx Instructions .Route .COMPLEX #30 tabs 02/22/23 [Rx Confirmed 08/15/23] diclofenac sodium 1 % topical gel See Rx Instructions .Route .COMPLEX 06/22/23 [History Confirmed 08/15/23] clopidogrel 75 mg tablet 75 mg PO QAM #30 tabs 06/25/23 [Rx Confirmed 08/15/23] metoprolol succinate 100 mg tablet,extended release 24 hr (Toprol XL) 200 mg PO QAM #60 tabs 06/25/23 [Rx Confirmed 08/15/23] nitroglycerin 0.4 mg sublingual tablet (Nitrostat) 0.4 mg sublingual Q5MIN PRN Chest Pain #60 tabs 06/25/23 [Rx Confirmed 08/15/23] baclofen 10 mg tablet 10 mg PO BID 08/15/23 [History Confirmed 08/15/23] methimazole 5 mg tablet 15 mg PO DAILY 08/15/23 [History Confirmed 08/15/23] oxycodone 5 mg tablet 5 mg PO BID PRN pain 08/15/23 [History Confirmed 08/15/23] pregabalin 100 mg capsule 100 mg PO BID 08/15/23 [History Confirmed 08/15/23] Transfer Discharge Sum: Hosp Hospital Course Hospital course: John Peters is a 63 year old male known to have severe multivessel coronary artery disease and left ventricular systolic dysfunction by recent evaluation in the quality lab technician here at this hospital. He presented to the hospital following out of hospital VF arrest and having been resuscitated and admitted to this hospital's ICU. There was initial concern that the patient was possibly having a STEMI and the interventionalist control cabinet assembler was contacted and determine this was not the case. The patient was stabilized in the ICU with intravenous amiodarone and became asymptomatic. Given the underlying substrate with ischemic heart disease and LV systolic dysfunction he was felt to be a candidate for implantation of a defibrillator for further protection against sudden cardiac . He was transferre
== END 2023-08-20 05:01 | disposition short-term general hospital (02) | DRG 309 ==
LOC: ANHED 23:40 → ANHICU 23:53 → ANHIMU 08-23 13:20
PROVIDERS: Internal Medicine; Internal Medicine Cardiovascular Disease; Admitting Provider Internal Medicine Cardiovascular Disease; Emergency Provider Emergency Medicine; PCP Family Medicine; Visit Provider Specialist
DX: I49.01 Ventricular fibrillation (principal); I24.9 Acute ischemic heart disease, unspecified; J96.11 Chronic respiratory failure with hypoxia; N17.9 Acute kidney failure, unspecified; I25.810 Atherosclerosis of coronary artery bypass graft(s) without angina pectoris; I50.22 Chronic systolic (congestive) heart failure; I46.9 Cardiac arrest, cause unspecified; I42.9 Cardiomyopathy, unspecified; I48.19 Other persistent atrial fibrillation; I50.812 Chronic right heart failure; I69.320 Aphasia following cerebral infarction; I11.0 Hypertensive heart disease with heart failure; J44.9 Chronic obstructive pulmonary disease, unspecified; E11.42 Type 2 diabetes mellitus with diabetic polyneuropathy; E78.5 Hyperlipidemia, unspecified; E05.90 Thyrotoxicosis, unspecified without thyrotoxic crisis or storm; G47.33 Obstructive sleep apnea (adult) (pediatric); M19.90 Unspecified osteoarthritis, unspecified site; F10.21 Alcohol dependence, in remission; F41.9 Anxiety disorder, unspecified; F32.A Depression, unspecified; Z79.01 Long term (current) use of anticoagulants; Z99.81 Dependence on supplemental oxygen; Z95.1 Presence of aortocoronary bypass graft; Z79.891 Long term (current) use of opiate analgesic; Z87.891 Personal history of nicotine dependence
CPT/HCPCS: 36415; 71045; 80048; 80053; 80061; 80162; 82010; 82550; 82948; 83735; 84484; 85025; 85027; 85610; 85730; 86850; 86900; 86901; 87641; 93005; 94002; 96374; 96375; 97161; 97530; 99285; A9270; J0282; J1170; J1644; J1815; J2405; J7030; J7040

== ENCOUNTER 2023-09-13 08:46 | Outpatient (CLI) | payer MEDICARE, MEDICAID, SELFPAY ==
[2023-09-13 09:11] LABS: Basophils Absolute Auto 0.1 K/mm3 (0.0-0.1); Basophils Percent Auto 0.9 % (0.2-1.2); Eosinophils Absolute Auto 0.4 K/mm3 (0-0.3); Eosinophils Percent Auto 5.3 % (0-4.4); Hematocrit 43.3 % (42.0-52.0); Hemoglobin 13.2 g/dL (14.0-18.0); Immature Granulocyte Absolute 0.02 K/mm3 (0.00-0.031); Immature Granulocyte Percent A 0.3 % (0-0.5); Lymphocytes Absolute Auto 1.03 K/mm3 (0.9-3.2); Lymphocytes Percent Auto 15.2 % (18.3-44.2); Mean Corpuscular HGB Conc 30.5 g/dl (32-36); Mean Corpuscular Hemoglobin 28.8 pg (26-34); Mean Corpuscular Volume 94.5 fl (80-100); Mean Platelet Volume 9.5 fl (7.4-10.4); Monocytes Absolute Auto 0.6 K/mm3 (0.1-0.6); Monocytes Percent Auto 9.2 % (2.6-8.5); Neutrophils Absolute Auto 4.7 K/mm3 (1.3-6.7); Neutrophils Percent Auto 69.1 % (45.5-73.1); Platelet Count Result 172 k/mm3 (150-375); Red Blood Count 4.58 M/mm3 (4.6-6.20); Red Cell Distribution Width 15.9 % (11.5-14.5); White Blood Count 6.8 K/mm3 (4.5-10.0)
[2023-09-13 09:24] LABS: Alanine Aminotransferase 21 U/L (6-50); Albumin Level 4.1 g/dL (3.5-5.1); Alkaline Phosphatase 145 U/L (38-126); Anion Gap 9 mmol/L (8-16); Aspartate Amino Transferase 21 U/L (17-59); Bilirubin,Total 0.5 mg/dL (0.2-1.3); Blood Urea Nitrogen 30 mg/dL (9-20); Calcium 8.6 mg/dL (8.4-10.2); Carbon Dioxide 28 mmol/L (22-30); Chloride 98 mmol/L (98-107); Cholesterol 147 mg/dL (0-200); Estimated Glomerular Filt Rate > 60; Glucose 167 mg/dL (65-110); HDL Direct 28 mg/dL; Potassium 4.1 mmol/L (3.4-5.0); Sodium 135 mmol/L (137-145); Triglycerides 274 mg/dL (<150)
[2023-09-13 09:28] LABS: Hemoglobin A1C 9.5 % (<5.7)
[2023-09-13 09:35] LABS: LDL Cholesterol Direct 95 mg/dL
[2023-09-13 09:55] LABS: Prostate Specific Antigen 0.5 ng/mL (< OR = 4.0)
[2023-09-13 10:33] LABS: Creatinine Urine 76.6 mg/dL
[2023-09-13 11:31] LABS: MALB Creatinine Ratio < 7.8 mg/g (0-30); Microalbumin Urine Random < 6.0 mg/L (0-16.7)
== END 2023-09-13 08:47 | disposition home or self-care (01) ==
PROVIDERS: PCP Family Medicine; Visit Provider Nurse Practitioner Family
DX: E78.2 Mixed hyperlipidemia (principal); E11.42 Type 2 diabetes mellitus with diabetic polyneuropathy; D64.9 Anemia, unspecified; D72.829 Elevated white blood cell count, unspecified; I10 Essential (primary) hypertension; Z12.5 Encounter for screening for malignant neoplasm of prostate
CPT/HCPCS: 36415; 80053; 80061; 82043; 83036; 84153; 85025; G0103

== ENCOUNTER 2023-09-21 08:05 | Outpatient (RCR) | payer MEDICARE, MEDICAID, SELFPAY ==
[2023-09-21 09:07] VITALS: PULSE 92
== END 2023-11-15 10:16 | disposition home or self-care (01) ==
LOC: ANHCPREHAB 08:05
PROVIDERS: PCP Family Medicine; Visit Provider Internal Medicine Cardiovascular Disease
DX: Z95.5 Presence of coronary angioplasty implant and graft (principal)
CPT/HCPCS: 93798

== ENCOUNTER 2024-01-11 08:29 | Emergency (ER) | payer MEDICARE, MEDICAID, SELFPAY ==
[2024-01-11] VITALS (11 sets, daily range): BP systolic 96–120; BP diastolic 54–90; PULSE 98–140; RESP 18–30; O2SAT 92–98
--- NOTE | ~2024-01-11 | XR_ITS ---
EXAMINATION: XR chest 2V DATE: 01/11/2024 09:33 INDICATION: Chest pain. Shortness of breath. Syncope. TECHNIQUE: Frontal and lateral views of the chest were obtained. COMPARISON: Chest single view 08/15/2023, chest CT 06/21/2023 FINDINGS: There is an interstitial pattern, consistent mild pulmonary edema. There are small pleural effusions. No pneumothorax. Cardiomegaly is noted. Median sternotomy wires are noted. There is mild c hronic anterior wedging of multiple vertebral bodies. IMPRESSION: 1. Mild pulmonary edema. 2. Small pleural effusions. 3. Cardiomegaly. Reviewed, dictated and finalized at location A.
--- NOTE | 2024-01-11 08:40 | ECG_ITS ---
Test Date: 2024-01-11 08:43:04 Measurements Intervals [place] Rate: 137 P: 0 NM: 0 QRS: 97 QRSD: 98 T: 20 QT: 304 QTc: 460 Interpretive Statements ATRIAL FIBRILLATION WITH RAPID VENTRICULAR RESPONSE BORDERLINE ST-T WAVE ABNORMALITY- INFERIOR LEADS BASELINE ARTIFACT- I, II, AVR ABNORMAL ECG No previous ECG available for comparison Electronically Signed On 01-11-2024 09:07:25 CDT by Charli Griffiths D.O.
[2024-01-11] MEDS: IPRATROPIUM 0.5 MG/ALBUTEROL SULFATE 2.5 MG AMPUL.NEB 3 ML 6 ML INHALATION (09:40)
[2024-01-11 09:51] LABS: Basophils Percent Auto 0.4 % (0.2-1.2); Eosinophils Absolute Auto 0.1 K/mm3 (0-0.3); Eosinophils Percent Auto 1.5 % (0-4.4); Hematocrit 37.4 % (42.0-52.0); Hemoglobin 12.3 g/dL (14.0-18.0); Immature Granulocyte Absolute 0.02 K/mm3 (0.00-0.031); Immature Granulocyte Percent A 0.2 % (0-0.5); Lymphocytes Percent Auto 6.1 % (18.3-44.2); Mean Corpuscular HGB Conc 32.9 g/dl (32-36); Mean Corpuscular Hemoglobin 29.1 pg (26-34); Mean Corpuscular Volume 88.6 fl (80-100); Mean Platelet Volume 9.8 fl (7.4-10.4); Monocytes Absolute Auto 0.6 K/mm3 (0.1-0.6); Monocytes Percent Auto 6.7 % (2.6-8.5); Neutrophils Percent Auto 85.1 % (45.5-73.1); Platelet Count Result 140 k/mm3 (150-375); Red Blood Count 4.22 M/mm3 (4.6-6.20); Red Cell Distribution Width 14.2 % (11.5-14.5); White Blood Count 8.2 K/mm3 (4.5-10.0)
[2024-01-11] MEDS: METOPROLOL SUCCINATE EXT REL 100 MG TABCR 200 MG PO (10:01)
[2024-01-11] MEDS: FUROSEMIDE INJ 40 MG/4 ML VIAL IV PUSH (10:01)
[2024-01-11 10:02] LABS: INR 1.1; Partial Thromboplastin Time 23.1 Seconds (22.3-36.8); Prothrombin Time 14.4 Seconds (11.1-14.7)
[2024-01-11 10:06] LABS: Alanine Aminotransferase 19 U/L (6-50); Albumin Level 4.1 g/dL (3.5-5.1); Alkaline Phosphatase 111 U/L (38-126); Anion Gap 7 mmol/L (4-12); Aspartate Amino Transferase 17 U/L (17-59); Blood Urea Nitrogen 13 mg/dL (9-20); Calcium 9.1 mg/dL (8.4-10.2); Carbon Dioxide 27 mmol/L (22-30); Chloride 103 mmol/L (98-107); Estimated CRCL calculation 105 ml/min; Estimated Glomerular Filt Rate > 60; Glucose 152 mg/dL (65-110); Lipase 61 U/L (23-300); Potassium 4.2 mmol/L (3.4-5.0); Sodium 137 mmol/L (137-145)
[2024-01-11 10:16] LABS: Troponin I < 0.012 ng/mL (0.000-0.034)
--- NOTE | 2024-01-11 10:42 | ED.GENADULT ---
HPI - General Adult General Chief complaint: Chest Pain Stated complaint: SOB/CP Time Seen by Provider: 01/11/24 08:34 History of Present Illness HPI narrative: This is a 63-year-old male with multiple medical comorbidities including CHF COPD, refractory AFib with RVR presenting with chest pain difficulty breathing. Patient says he has been having a sharp pain in the center of his chest for the last 2-3 days. It is associated with shortness of breath. Patient denies fevers chills productive cough or lower extremity edema. Patient is due to get a AICD / pacemaker at [facility] today for his refractory atrial fibrillation. EMS brought him to this hospital instead. Related Data Home Medications Medication Instructions Recorded Confirmed trazodone 50 mg tablet 50 mg PO HS 01/17/23 01/11/24 baclofen 10 mg tablet 10 mg PO BID 08/15/23 01/11/24 methimazole 5 mg tablet 20 mg PO DAILY 08/15/23 01/11/24 pregabalin 100 mg capsule 100 mg PO BID 08/15/23 01/11/24 albuterol (refill) 90 90 mcg inhalation Q4-5H 01/11/24 01/11/24 mcg/actuation aerosol inhaler amiodarone 200 mg tablet 200 mg PO DAILY 01/11/24 01/11/24 bumetanide 1 mg tablet 1 mg PO BID 01/11/24 01/11/24 bumetanide 2 mg tablet 2 mg PO BID 01/11/24 01/11/24 metoprolol succinate 100 mg 100 mg PO QAM 01/11/24 01/11/24 tablet,extended release 24 hr (Toprol XL) sacubitril 24 mg-valsartan 26 mg 0.5 tablet PO BID 01/11/24 01/11/24 tablet (Entresto) tirzepatide 2.5 mg/0.5 mL 2.5 mg subcut WEEKLY 01/11/24 01/11/24 subcutaneous pen injector (Mounjaro) Allergies Allergy/AdvReac Type Severity Reaction Status Date / Time morphine AdvReac Unknown Increased Verified 01/11/24 08:50 HR [facility] Past Medical History Medical History Cardiomyopathy Cerebrovascular accident (~05/2018) With global aphasia, much improved with mild expressive aphasia. Chronic anemia Chronic atrial fibrillation With failed cardiac ablation and cardioversion on several occasions. On long-term Coumadin for stroke prophylaxis. Mounter Clarinets is Dr. Vasquez at [facility]. Chronic respiratory failure with hypoxia, on home oxygen therapy 3 L nasal cannula with rest p.r.n. 4 L bleed in at nighttime. Congestive heart failure Echocardiogram on 03/27/2021 showed an enlarged left ventricular chamber with normal LV systolic function and an estimated EF of 55 to 60%, diastolic dysfunction, moderately enlarged right ventricular chamber, reduced RV systolic function, biatrial enlargement, mild regurgitation of annuloplasty ring of a prosthetic mitral valve, and mild pulmonary hypertension with an estimated pulmonary arterial systolic pressure of 44 mmHg. COPD (chronic obstructive pulmonary disease) Coronary artery disease (~2001) Status post three-vessel bypass. Depression with anxiety Essential hypertension H/O: substance abuse Brother reports patient is an addict, previously abused cocaine, alcohol and opiates. Hyperlipidemia Hyperthyroidism MRSA colonization Obstructive sleep apnea Approved for trilogy unit in February 2020. Osteoarthritis Right-sided congestive heart failure Type 2 diabetes mellitus Hemoglobin A1c was 6.4% on 03/26/2021. Type 2 diabetes mellitus without complication, without long-term current use of insulin Valvular heart disease Status post mitral valve repair. Surgical History Surgical History History of coronary artery bypass graft x 3 History of mitral valve repair Family History Family History Father Family history of cardiovascular disease Family history of malignant neoplasm of bone Mother Family history of malignant neoplasm Sibling Family history of cardiovascular disease Social History Social History (Reviewed 08/15/23 @ 09:15 by Dennis Argueta MD
[2024-01-11 11:21] LABS: NT Pro B Type Natriuretic Pept 1030 pg/mL (19.9-100)
--- NOTE | 2024-01-11 11:30 | PC.NURSE ---
pt called out for pain medication. MD notified, no new orders
--- NOTE | 2024-01-11 12:18 | PC.NURSE ---
Eleanor from [facility] transfer center called to get some info on pt and will call back when they have a bed
[2024-01-11 12:44] LABS: Troponin I < 0.012 ng/mL (0.000-0.034)
--- NOTE | 2024-01-11 12:44 | PC.NURSE ---
pt called out for pain medication. MD notified, no new orders
--- NOTE | 2024-01-11 12:55 | ECG_ITS ---
Test Date: 2024-01-11 13:04:12 Measurements Intervals [place] Rate: 102 P: 0 AK: 0 QRS: 92 QRSD: 106 T: 39 QT: 356 QTc: 465 Interpretive Statements ATRIAL FIBRILLATION WITH RAPID VENTRICULAR RESPONSE RIGHT AXIS DEVIATION BASELINE WANDER- V4-V6 ABNORMAL ECG Compared to ECG 01/11/2024 08:43:04 HEART RATE HAS DECREASED Electronically Signed On 01-11-2024 16:40:09 CDT by Charli Griffiths D.O.
[2024-01-11] MEDS: ACETAMINOPHEN 500 MG TABLET 1000 MG PO (12:59)
== END 2024-01-11 14:33 | disposition short-term general hospital (02) ==
PROVIDERS: Emergency Provider Emergency Medicine; PCP Family Medicine
DX: I50.810 Right heart failure, unspecified (principal); J44.9 Chronic obstructive pulmonary disease, unspecified; I48.20 Chronic atrial fibrillation, unspecified; I11.0 Hypertensive heart disease with heart failure; I42.9 Cardiomyopathy, unspecified; I25.10 Atherosclerotic heart disease of native coronary artery without angina pectoris; I38 Endocarditis, valve unspecified; J96.11 Chronic respiratory failure with hypoxia; E11.9 Type 2 diabetes mellitus without complications; E78.5 Hyperlipidemia, unspecified; E05.90 Thyrotoxicosis, unspecified without thyrotoxic crisis or storm; G47.33 Obstructive sleep apnea (adult) (pediatric); D64.9 Anemia, unspecified; M19.90 Unspecified osteoarthritis, unspecified site; F41.8 Other specified anxiety disorders; Z99.81 Dependence on supplemental oxygen; Z95.1 Presence of aortocoronary bypass graft; Z86.14 Personal history of Methicillin resistant Staphylococcus aureus infection; Z79.85 Long-term (current) use of injectable non-insulin antidiabetic drugs; Z79.84 Long term (current) use of oral hypoglycemic drugs; Z79.899 Other long term (current) drug therapy; Z79.01 Long term (current) use of anticoagulants; R94.31 Abnormal electrocardiogram [ECG] [EKG]
CPT/HCPCS: 36415; 71046; 80053; 83690; 83880; 84484; 85025; 85610; 85730; 93005; 94640; 96374; 99285; A9270; J1940

== ENCOUNTER 2024-01-28 11:57 | Emergency (ER) | payer MEDICARE, MEDICAID, SELFPAY ==
[2024-01-28 12:01] VITALS: BP 126/69; PULSE 72; RESP 18; TEMP 36.6; O2SAT 93
--- NOTE | 2024-01-28 12:14 | ECG_ITS ---
Test Date: 2024-01-28 12:35:11 Measurements Intervals [place] Rate: 69 P: 0 [place]: 0 QRS: 155 QRSD: 169 T: -12 QT: 534 QTc: 576 Interpretive Statements ELECTRONIC VENTRICULAR PACEMAKER BASELINE ARTIFACT- I, II, AVR, V1 NO FURTHER INTERPRETATION IS POSSIBLE ATYPICAL ECG Compared to ECG 01/11/2024 13:04:12 ELECTRONIC VENTRICULAR PACEMAKER NOW PRESENT Electronically Signed On 01-29-2024 09:06:48 CDT by Charli Griffiths D.O.
[2024-01-28 12:31] VITALS: BP 137/58; PULSE 70; RESP 20; O2SAT 94
--- NOTE | 2024-01-28 12:46 | ED.GENADULT ---
HPI - General Adult General Chief complaint: Anxiety Stated complaint: anxious Time Seen by Provider: 01/28/24 12:25 History of Present Illness HPI narrative: [age] old male presenting emergency department for evaluation for increased anxiety and shaking. Patient reports he did have an MN back in August but denies any current chest pain or shortness of breath. Patient states he has had increasing anxiety and has ?shaking on the inside?. Patient denies any other complaints but is requesting medication for his anxiety. Patient denies any fevers or recent illness. Related Data Home Medications Medication Instructions Recorded Confirmed trazodone 50 mg tablet 50 mg PO HS 01/17/23 01/11/24 baclofen 10 mg tablet 10 mg PO BID 08/15/23 01/11/24 methimazole 5 mg tablet 20 mg PO DAILY 08/15/23 01/11/24 pregabalin 100 mg capsule 100 mg PO BID 08/15/23 01/11/24 albuterol (refill) 90 90 mcg inhalation Q4-5H 01/11/24 01/11/24 mcg/actuation aerosol inhaler amiodarone 200 mg tablet 200 mg PO DAILY 01/11/24 01/11/24 bumetanide 1 mg tablet 1 mg PO BID 01/11/24 01/11/24 bumetanide 2 mg tablet 2 mg PO BID 01/11/24 01/11/24 metoprolol succinate 100 mg 100 mg PO QAM 01/11/24 01/11/24 tablet,extended release 24 hr (Toprol XL) sacubitril 24 mg-valsartan 26 mg 0.5 tablet PO BID 01/11/24 01/11/24 tablet (Entresto) tirzepatide 2.5 mg/0.5 mL 2.5 mg subcut WEEKLY 01/11/24 01/11/24 subcutaneous pen injector (Mounjaro) Allergies Allergy/AdvReac Type Severity Reaction Status Date / Time morphine AdvReac Unknown Increased Verified 01/11/24 08:50 HR Review of Systems Review of Systems: All systems reviewed & are unremarkable except as noted in HPI and below PMFSH Past Medical History Medical History Cardiomyopathy Cerebrovascular accident (~05/2018) With global aphasia, much improved with mild expressive aphasia. Chronic anemia Chronic atrial fibrillation With failed cardiac ablation and cardioversion on several occasions. On long-term Coumadin for stroke prophylaxis. Through Freight Engineer is Dr. Vasquez at [facility] in [place]. Chronic respiratory failure with hypoxia, on home oxygen therapy 3 L nasal cannula with rest p.r.n. 4 L bleed in at nighttime. Congestive heart failure Echocardiogram on 03/27/2021 showed an enlarged left ventricular chamber with normal LV systolic function and an estimated EF of 55 to 60%, diastolic dysfunction, moderately enlarged right ventricular chamber, reduced RV systolic function, biatrial enlargement, mild regurgitation of annuloplasty ring of a prosthetic mitral valve, and mild pulmonary hypertension with an estimated pulmonary arterial systolic pressure of 44 mmHg. COPD (chronic obstructive pulmonary disease) Coronary artery disease (~2001) Status post three-vessel bypass. Depression with anxiety Essential hypertension H/O: substance abuse Brother reports patient is an addict, previously abused cocaine, alcohol and opiates. Hyperlipidemia Hyperthyroidism MRSA colonization Obstructive sleep apnea Approved for trilogy unit in February 2020. Osteoarthritis Right-sided congestive heart failure Type 2 diabetes mellitus Hemoglobin A1c was 6.4% on 03/26/2021. Type 2 diabetes mellitus without complication, without long-term current use of insulin Valvular heart disease Status post mitral valve repair. Surgical History Surgical History History of coronary artery bypass graft x 3 History of mitral valve repair Family History Family History Father Family history of cardiovascular disease Family history of malignant neoplasm of bone Mother Family history of malignant neoplasm Sibling Family history of cardiovascular disease Social History Social History (Reviewed 08/15/23 @ 09:15 by Dennis
[2024-01-28] MEDS: LORazepam (*CRX) 1 MG TABLET PO (12:51)
[2024-01-28 13:01] VITALS: BP 127/61; PULSE 70; RESP 16; O2SAT 92
[2024-01-28 13:26] LABS: Basophils Absolute Auto 0.1 K/mm3 (0.0-0.1); Basophils Percent Auto 0.4 % (0.2-1.2); Eosinophils Percent Auto 0.1 % (0-4.4); Hematocrit 41.2 % (42.0-52.0); Hemoglobin 13.5 g/dL (14.0-18.0); Immature Granulocyte Absolute 0.05 K/mm3 (0.00-0.031); Immature Granulocyte Percent A 0.3 % (0-0.5); Lymphocytes Absolute Auto 0.52 K/mm3 (0.9-3.2); Lymphocytes Percent Auto 3.5 % (18.3-44.2); Mean Corpuscular HGB Conc 32.8 g/dl (32-36); Mean Corpuscular Hemoglobin 28.4 pg (26-34); Mean Corpuscular Volume 86.7 fl (80-100); Mean Platelet Volume 9.2 fl (7.4-10.4); Monocytes Absolute Auto 0.9 K/mm3 (0.1-0.6); Monocytes Percent Auto 6.4 % (2.6-8.5); Neutrophils Absolute Auto 13.2 K/mm3 (1.3-6.7); Neutrophils Percent Auto 89.3 % (45.5-73.1); Platelet Count Result 164 k/mm3 (150-375); Red Blood Count 4.75 M/mm3 (4.6-6.20); Red Cell Distribution Width 13.7 % (11.5-14.5); White Blood Count 14.8 K/mm3 (4.5-10.0)
[2024-01-28 13:37] LABS: Alanine Aminotransferase 32 U/L (6-50); Albumin Level 4.6 g/dL (3.5-5.1); Alkaline Phosphatase 134 U/L (38-126); Anion Gap 15 mmol/L (4-12); Aspartate Amino Transferase 39 U/L (17-59); Blood Urea Nitrogen 19 mg/dL (9-20); Calcium 9.2 mg/dL (8.4-10.2); Carbon Dioxide 21 mmol/L (22-30); Chloride 94 mmol/L (98-107); Estimated CRCL calculation 78 ml/min; Estimated Glomerular Filt Rate > 60; Glucose 160 mg/dL (65-110); Potassium 3.6 mmol/L (3.4-5.0); Sodium 130 mmol/L (137-145)
[2024-01-28 13:39] VITALS: BP 141/69; PULSE 70; RESP 17; O2SAT 95
[2024-01-28 14:15] VITALS: BP 113/57; PULSE 70; RESP 16; O2SAT 95
== END 2024-01-28 14:15 ==
PROVIDERS: Emergency Provider Emergency Medicine; PCP Family Medicine
DX: F41.9 Anxiety disorder, unspecified (principal); I11.0 Hypertensive heart disease with heart failure; I50.9 Heart failure, unspecified; E11.9 Type 2 diabetes mellitus without complications; E78.5 Hyperlipidemia, unspecified; Z87.891 Personal history of nicotine dependence; Z86.73 Personal history of transient ischemic attack (TIA), and cerebral infarction without residual deficits
CPT/HCPCS: 36415; 80053; 85025; 93005; 99283; A9270

== ENCOUNTER 2024-02-04 01:45 | Emergency (ER) | payer MEDICARE, MEDICAID, SELFPAY ==
[2024-02-04 01:46] VITALS: BP 152/77; PULSE 70; RESP 19; TEMP 36.6; O2SAT 93
--- NOTE | 2024-02-04 01:57 | ECG_ITS ---
Test Date: 2024-02-04 01:59:07 Measurements Intervals [place] Rate: 69 P: 0 [place]: 0 QRS: 269 QRSD: 169 T: 73 QT: 489 QTc: 527 Interpretive Statements ELECTRONIC VENTRICULAR PACEMAKER BASELINE ARTIFACT- I, II, III, AVR, AVL, AVF, V1-V6 NO FURTHER INTERPRETATION IS POSSIBLE ATYPICAL ECG Compared to ECG 01/28/2024 12:35:11 No significant changes Electronically Signed On 02-04-2024 06:22:32 CDT by Charli Griffiths D.O.
[2024-02-04 02:24] LABS: Basophils Absolute Auto 0.1 K/mm3 (0.0-0.1); Basophils Percent Auto 0.8 % (0.2-1.2); Eosinophils Absolute Auto 0.4 K/mm3 (0-0.3); Eosinophils Percent Auto 5.4 % (0-4.4); Hematocrit 41.9 % (42.0-52.0); Hemoglobin 13.8 g/dL (14.0-18.0); Immature Granulocyte Absolute 0.03 K/mm3 (0.00-0.031); Immature Granulocyte Percent A 0.4 % (0-0.5); Lymphocytes Absolute Auto 1.37 K/mm3 (0.9-3.2); Lymphocytes Percent Auto 18.1 % (18.3-44.2); Mean Corpuscular HGB Conc 32.9 g/dl (32-36); Mean Corpuscular Hemoglobin 28.9 pg (26-34); Mean Corpuscular Volume 87.8 fl (80-100); Mean Platelet Volume 9.3 fl (7.4-10.4); Monocytes Absolute Auto 0.9 K/mm3 (0.1-0.6); Monocytes Percent Auto 11.5 % (2.6-8.5); Neutrophils Absolute Auto 4.9 K/mm3 (1.3-6.7); Neutrophils Percent Auto 63.8 % (45.5-73.1); Platelet Count Result 186 k/mm3 (150-375); Red Blood Count 4.77 M/mm3 (4.6-6.20); Red Cell Distribution Width 14.1 % (11.5-14.5); White Blood Count 7.6 K/mm3 (4.5-10.0)
[2024-02-04 02:33] LABS: Ethanol < 10 mg/dL (<10)
[2024-02-04 02:37] LABS: Alanine Aminotransferase 32 U/L (6-50); Albumin Level 4.4 g/dL (3.5-5.1); Alkaline Phosphatase 103 U/L (38-126); Anion Gap 15 mmol/L (4-12); Aspartate Amino Transferase 26 U/L (17-59); Bilirubin,Total 0.5 mg/dL (0.2-1.3); Blood Urea Nitrogen 17 mg/dL (9-20); Calcium 9.1 mg/dL (8.4-10.2); Carbon Dioxide 26 mmol/L (22-30); Chloride 92 mmol/L (98-107); Estimated CRCL calculation 77 ml/min; Estimated Glomerular Filt Rate > 60; Glucose 202 mg/dL (65-110); Potassium 4.1 mmol/L (3.4-5.0); Sodium 133 mmol/L (137-145)
[2024-02-04] MEDS: LORazepam (*CRX) 0.5 MG TABLET PO ×2 (03:06→04:13)
[2024-02-04 03:15] LABS: Thyroid Stimulating Hormone Reflex < 0.015 uIU/mL (0.465-4.68)
[2024-02-04 03:42] LABS: Appearance Urine Clear (Clear); Bilirubin Urine Negative (Negative); Blood Urine Negative (Negative); Color Urine Yellow (Yellow); Glucose Urine UA 2+ mg/dL (Negative); Ketones Urine Negative (Negative); Leukocyte Esterase Ur Negative LEU/UL (Negative); Nitrate Urine Negative (Negative); Protein Urine Negative (Negative); Specific Grav Ur 1.013 (1.001-1.035); Urobilinogen Urine 0.2 mg/dL (<2.0); pH Urine 5.5 (5.0-9.0)
--- NOTE | 2024-02-04 03:46 | ED.PSYCH ---
HPI - Psych General Chief Complaint: Psychiatric Symptoms Stated Complaint: ANXIETY, NEW PACEMAKER Time Seen by Provider: 02/04/24 03:43 Source: patient Limitations: no limitations History of Present Illness HPI Narrative: Patient presents with a lot of health anxiety; endorese SI to nurse, stating he doesn't want to live. Recently underwent Pacemaker placement though [facility] on 01/10/24. Patient states he can't sleep. Part of this is due to pain, particularly neuropathy for which he is on gabapentin. He says he is having a problem with pain and maybe took too many pills. Clarifies that it was his Cordova tablets, believes he took 6-8 tablets, last dose 6 hours ago. He states I'm not safe Thoughts of harming himself. History of CHF; since the pacemarer his pedal edema is better. He is having some nausea. Hx of CVA which left him with some slurred speech. PCP through [facility] is Dr Maldonado (spelling?) whom he saw this week. He was frustrated because he was prescribed antidepressant/antianxiety medications that he says don't work. Relies on his brother a lot. Lost a good friend who recently. Notes history of anxiety and depression. States he doesn't like medications. History of divorce. Feels like he is in a dark hole and can't get out. Patient brings medication list: Albuterol, amiodarone, apixaban, atorvastatin, baclofen, bumetanide, clopidogrel, empagliflozin, fluticasone, Cordova 05-325, insulin, lidocaine patch, metformin, methimazole, metoprolol, Monjuaro, nitroglycerin, pregabalin, Rybelsus, sacubitril-valsartan, spironolactone, trazodone Related Data Home Medications Medication Instructions Recorded Confirmed trazodone 50 mg tablet 50 mg PO HS 01/17/23 01/11/24 baclofen 10 mg tablet 10 mg PO BID 08/15/23 01/11/24 methimazole 5 mg tablet 20 mg PO DAILY 08/15/23 01/11/24 pregabalin 100 mg capsule 100 mg PO BID 08/15/23 01/11/24 albuterol (refill) 90 90 mcg inhalation Q4-5H 01/11/24 01/11/24 mcg/actuation aerosol inhaler amiodarone 200 mg tablet 200 mg PO DAILY 01/11/24 01/11/24 bumetanide 1 mg tablet 1 mg PO BID 01/11/24 01/11/24 bumetanide 2 mg tablet 2 mg PO BID 01/11/24 01/11/24 metoprolol succinate 100 mg 100 mg PO QAM 01/11/24 01/11/24 tablet,extended release 24 hr (Toprol XL) sacubitril 24 mg-valsartan 26 mg 0.5 tablet PO BID 01/11/24 01/11/24 tablet (Entresto) tirzepatide 2.5 mg/0.5 mL 2.5 mg subcut WEEKLY 01/11/24 01/11/24 subcutaneous pen injector (Mounjaro) Allergies Allergy/AdvReac Type Severity Reaction Status Date / Time morphine AdvReac Unknown Increased Verified 01/11/24 08:50 HR [facility] Past Medical History Medical History (Updated 02/06/24 @ 23:00 by Rosie Rangel MD) Cardiomyopathy Cerebrovascular accident (~05/2018) With global aphasia, much improved with mild expressive aphasia. Chronic anemia Chronic atrial fibrillation With failed cardiac ablation and cardioversion on several occasions. On long-term Coumadin for stroke prophylaxis. Telescope Repairer is Dr. Vasquez at [facility]. Chronic respiratory failure with hypoxia, on home oxygen therapy 3 L nasal cannula with rest p.r.n. 4 L bleed in at nighttime. Congestive heart failure Echocardiogram on 03/27/2021 showed an enlarged left ventricular chamber with normal LV systolic function and an estimated EF of 55 to 60%, diastolic dysfunction, moderately enlarged right ventricular chamber, reduced RV systolic function, biatrial enlargement, mild regurgitation of annuloplasty ring of a prosthetic mitral valve, and mild pulmonary hypertension with an estimated pulmonary arterial systolic pressure of 44 mmHg. COPD (chronic obstructive pulmonary disease) Coronary artery disease (~2001) Status post three-vessel bypass. Depression with anxiety Essential hypertension H/O: substance abuse Brother reports patient is an addict, previously abused cocaine, alcohol and opiates. Hyperlipidemia Hyperthyroidism MRSA col
[2024-02-04 03:47] LABS: Add Urine Microscopic? NO
[2024-02-04] MEDS: ONDANSETRON HCL ODT 4 MG TABLET PO (04:13)
--- NOTE | 2024-02-04 04:37 | PC.NURSE ---
This Rn called poison control at 0437 due to pt taking his NORCO more than usual (6-8x today). Pt states this wasn't an intentional overdose attempt. Aneta ZAMBRANO from poison control states they would like us to monitor for couple of hours. Due to pt already being here for 3 hours poison control states to get acetaminophen and salicylates blood work ordered. If all blood work comes back okay and if pt has any symptoms that they subside he is medically cleared.
[2024-02-04 04:48] LABS: Amphetamine Screen Urine Negative (Negative); Barbiturate Screen Urine Negative (Negative); Benzodiazepines Screen Urine Negative (Negative); Cannabinoid Screen Urine Negative (Negative); Cocaine Screen Urine Negative (Negative); Methadone Screen Urine Negative (Negative); Opiate Screen Urine Positive (Negative); Phencyclidine Screen Urine Negative (Negative)
[2024-02-04 04:53] LABS: Acetaminophen < 10 ug/mL (10-30); Salicylate < 1.0 mg/dL (2-20)
[2024-02-04 07:44] VITALS: BP 123/70; PULSE 70; RESP 19; O2SAT 94
[2024-02-09 13:38] LABS: T3 Free 4.5 pg/mL
== END 2024-02-04 07:48 | disposition home or self-care (01) ==
PROVIDERS: Emergency Provider Student in an Organized Health Care Education/Training Program; PCP Family Medicine
DX: T40.2X2A Poisoning by other opioids, intentional self-harm, initial encounter (principal); D64.9 Anemia, unspecified; E11.40 Type 2 diabetes mellitus with diabetic neuropathy, unspecified; E05.90 Thyrotoxicosis, unspecified without thyrotoxic crisis or storm; I42.9 Cardiomyopathy, unspecified; I48.19 Other persistent atrial fibrillation; I50.9 Heart failure, unspecified; I11.0 Hypertensive heart disease with heart failure; I25.10 Atherosclerotic heart disease of native coronary artery without angina pectoris; I38 Endocarditis, valve unspecified; I69.920 Aphasia following unspecified cerebrovascular disease; E78.5 Hyperlipidemia, unspecified; J96.11 Chronic respiratory failure with hypoxia; Z99.81 Dependence on supplemental oxygen; J44.9 Chronic obstructive pulmonary disease, unspecified; G47.33 Obstructive sleep apnea (adult) (pediatric); M19.90 Unspecified osteoarthritis, unspecified site; F41.8 Other specified anxiety disorders; Z95.1 Presence of aortocoronary bypass graft; Z95.0 Presence of cardiac pacemaker; Z86.14 Personal history of Methicillin resistant Staphylococcus aureus infection; Z87.891 Personal history of nicotine dependence; Z79.85 Long-term (current) use of injectable non-insulin antidiabetic drugs; Z79.899 Other long term (current) drug therapy; Z79.84 Long term (current) use of oral hypoglycemic drugs
CPT/HCPCS: 36415; 80053; 80307; 81003; 84439; 84443; 84480; 85025; 93005; 99284; A9270

== ENCOUNTER 2024-04-10 09:42 | Outpatient (CLI) | payer MEDICARE, MEDICAID, SELFPAY ==
--- NOTE | ~2024-04-10 | CT_ITS ---
EXAMINATION: CT thoracic lumbar wo con DATE: 04/10/2024 10:19 INDICATION: Lumbar radicular pain. TECHNIQUE: Computed tomography (CT) of the thoracic and lumbar spine was performed without intravenou s contrast. Automated exposure control and iterative reconstruction technique were employed. The dose -length product was 2075.65 mGy-cm. COMPARISON: None FINDINGS: CT THORACIC SPINE: There is a goiter that extends into the mediastinum. A calcified right lung nodule and calcified bilateral hilar and mediastinal lymph nodes are consistent with old granulomatous dise ase. Alignment is normal. There is chronic anterior wedging of T6, T7, and T8 vertebral bodies. There is mildly decreased disc height at multiple levels. There is moderately decreased disc height at T5- T6 and T6-T7. There is multilevel [id number] facet joint osteoarthritis. On the right, there is severe facet joint osteoarthritis at C7-T1. There is mild neural foraminal stenosis at multiple leve ls on either side. No central canal stenosis. CT LUMBAR SPINE: Bone alignment is normal. Vertebral body heights are normal. There is mildly decreas ed disc height at L4-L5 and severely decreased disc height at L5-S1. The following disc levels are sp ecifically discussed: L1-L2: The disc does not extend beyond the endplate margin. There is mild bilateral facet joint osteo arthritis. There is no neural foraminal stenosis. There is no central canal stenosis. L2-L3: The disc does not extend beyond the endplate margin. There is mild bilateral facet joint osteo arthritis. There is no neural foraminal stenosis. There is no central canal stenosis. L3-L4: The disc is bulging. There is moderate right and mild left facet joint osteoarthritis. There i s mild bilateral neural foraminal stenosis. There is mild central canal stenosis. L4-L5: The disc is bulging. There is moderate bilateral facet joint osteoarthritis. There is mild matthew ateral neural foraminal stenosis. There is mild central canal stenosis. L5-S1: The disc is bulging. There is severe bilateral facet joint osteoarthritis. There is moderate b ilateral neural foraminal stenosis. There is mild central canal stenosis. IMPRESSION: 1. Moderate thoracic spondylosis. 2. Severe lower lumbar spondylosis. Reviewed, dictated and finalized at location A.
== END 2024-04-10 09:43 | disposition home or self-care (01) ==
LOC: ANHIMG 09:43
PROVIDERS: PCP Family Medicine; Visit Provider Physical Medicine & Rehabilitation Pain Medicine
DX: M54.16 Radiculopathy, lumbar region (principal); M54.14 Radiculopathy, thoracic region
CPT/HCPCS: 72128; 72131

== ENCOUNTER 2024-08-25 01:13 | Day surgery (SDC) | payer MEDICARE, MEDICAID, SELFPAY ==
[2024-05-01 14:58] VITALS: BMI 42.6
--- NOTE | 2024-05-02 11:55 | PC.NURSE ---
Reviewed chart and clearances with Dr. Ray and Patt Nickerson RN Dept. public affairs manager, Dr. Ray wants to proceed with procedure with patient holding Eliquis but remaining on Plavix. Patt is in agreement also to proceed. Spoke with _brother Alton as requested by pt. Lopez___ regarding medication Eliquis he verbalizes understanding that the last dose of Eliquis is to be taken on 05/05/2024 and he is not to stop Plavix and the Endoscopist will instruct them when to restart Eliquis after the procedure.
--- NOTE | 2024-05-07 15:09 | P.PNAN_ITS ---
Anes - Eval Pre Procedure Procedure: Operation Date: 05/08/24 08:30 Proposed Procedures p Colonoscopy - Tulio Lawton MD Date/Time: 05/07/24 15:09 Pre Op Diagnosis: Personal hx colon polyps Patient Data Age: 63 Gender: M Height: 1.73 m Weight: 127.2 kg Allergies Allergy/AdvReac Type Severity Reaction Status Date / Time morphine AdvReac Intermediate Itching Verified 05/01/24 15:03 Home Medications Medication Instructions Recorded Confirmed Type metformin 500 mg tablet 1,000 mg PO Q12H #360 tabs 04/17/22 05/01/24 Rx apixaban 5 mg tablet (Eliquis) 5 mg PO BID #180 tabs 06/11/22 05/01/24 Rx empagliflozin 25 mg tablet 25 mg PO DAILY #90 tabs 07/20/22 05/01/24 Rx (Jardiance) atorvastatin 40 mg tablet 40 mg PO QHS #90 tabs 09/24/22 05/01/24 Rx trazodone 50 mg tablet 50 mg PO HS 01/17/23 05/01/24 History clopidogrel 75 mg tablet 75 mg PO QAM #30 tabs 06/25/23 05/01/24 Rx nitroglycerin 0.4 mg sublingual 0.4 mg sublingual Q5MIN PRN Chest 06/25/23 05/01/24 Rx tablet (Nitrostat) Pain #60 tabs baclofen 10 mg tablet 10 mg PO BID 08/15/23 05/01/24 History methimazole 5 mg tablet 20 mg PO DAILY 08/15/23 05/01/24 History pregabalin 100 mg capsule 100 mg PO BID 08/15/23 05/01/24 History amiodarone 200 mg tablet 200 mg PO DAILY 01/11/24 05/01/24 History bumetanide 2 mg tablet 2 mg PO BID 01/11/24 05/01/24 History metoprolol succinate 100 mg 100 mg PO QAM 01/11/24 05/01/24 History tablet,extended release 24 hr (Toprol XL) sacubitril 24 mg-valsartan 26 mg 0.5 tablet PO BID 01/11/24 05/01/24 History tablet (Entresto) tirzepatide 2.5 mg/0.5 mL 2.5 mg subcut WEEKLY 01/11/24 05/01/24 History subcutaneous pen injector (Mounjaro) naloxone 4 mg/actuation nasal 4 mg intranasal Q2M PRN opioid 02/04/24 Rx spray (Narcan) overdose #2 ea albuterol sulfate 90 mcg/actuation 2 puff inhalation Q4H PRN 05/01/24 05/01/24 History aerosol inhaler Shortness Of Breath Or Wheezing fluticasone propionate 50 2 spray intranasal DAILY PRN 05/01/24 05/01/24 History mcg/actuation nasal RHINITIS spray,suspension hydrocodone 5 mg-acetaminophen 325 1 tablet PO BID PRN Pain 05/01/24 05/01/24 History mg tablet insulin glargine 100 unit/mL (3 8 unit subcut HS 05/01/24 05/01/24 History mL) subcutaneous pen (Lantus Solostar U-100 Insulin) lidocaine 5 % topical patch 1 patch topical DIRECTED PRN 05/01/24 05/01/24 History Pain peg 3350-electrolytes 236 240 ml PO Q10M #4,000 mL 05/01/24 Rx gram-22.74 gram-6.74 gram-5.86 gram solution (Golytely) semaglutide 14 mg tablet (Rybelsus) 14 mg PO DAILY 05/01/24 05/01/24 History spironolactone 25 mg tablet 25 mg PO DAILY 05/01/24 05/01/24 History Patient hx anesthesia problems: none Family hx anesthesia problems: none Results Review: All pre-operative results and documents have been reviewed as part of the pre- operative evaluation. [facility] Past Medical History Medical History Cardiomyopathy Cerebrovascular accident (~05/2018) With global aphasia, much improved with mild expressive aphasia. Chronic anemia Chronic atrial fibrillation With failed cardiac ablation and cardioversion on several occasions. On long-term Coumadin for stroke prophylaxis. 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 Vasquez at [facility]. Chronic respiratory failure with hypoxia, on home oxygen therapy 3 L nasal cannula with rest p.r.n. 4 L bleed in at nighttime. Congestive heart failure Echocardiogram on 03/27/2021 showed an enlarged left ventricular chamber with normal LV systolic function and an estimated EF of 55 to 60%, diastolic dysfunction, moderately enlarged right ventricular chamber, reduced RV systolic function, biatrial enlargement, mild regurgitation of annuloplasty ring of a prosthetic mitral valve, and mild pulmonary hypertension with an estimated pulmonary arterial systolic pressure of 44 mmHg. COPD (chronic obstructive pulmonary disease) Coronary artery disease (~2001) Status post three-vessel bypass. Depression with anxiety Essential hypertension H/O: substance abuse Brother reports patient is an addict, previously abused cocaine, alcohol and opiates. Hyperlipidemia Hyperthyroidism MRSA colonization Neuropathy Obstructive sleep apnea Approved for trilogy unit in February 2020. Osteoarthritis Pacemaker 01/10/24; [facility] Right-sided congestive heart failure Type 2 diabetes mellitus Hemoglobin A1c was 6.4% on 03/26/2021. Type 2 diabetes mellitus without complication, without long-term current use of insulin Valvular heart disease Status post mitral valve repair. Surgical History Surgical History History of coronary artery bypass graft x 3 History of mitral valve repair Family History Family History Father Family history of cardiovascular disease Family history of malignant neoplasm of bone Mother Family history of malignant neoplasm Sibling Family history of cardiovascular disease Social History Social History Social History: He lives alone and is retired from [employer] business. Surrogate decision maker: Alton Peters, brother. 3 daughters Code status: Full code. Smoking packs per day: 1.5 Smoking cigarettes per day: 30.0 Years smoked: 30 Smoking pack-years: 45.00 Smoking status: Former smoker Tobacco type: cigarettes Smokeless tobacco user: snuff Second hand tobacco smoke exposure: No Additional smoking assessment comments: currently uses snuff Alcohol intake: former Alcohol use details: recovering alcoholic since 1996, rare occasional single beer Substance use: former Substance use type: crack/cocaine and prescription drug Last use: Former use of cocaine Do You Feel Safe in your Home?: Yes Lack of Transportation: YES Lack of Food: Sometimes True Current Housing: I Have Housing Concerned About Future Housing: No Difficulty Paying Gas/Electric Bills: YES Difficulty Paying for Meds: YES Currently Unemployed: No Education: Grade School Difficulty w/ Childcare or Family Care: No Living arrangements: with family Additional living arrangements comments: Patient lives in his own apartment in [place]. Additional occupation/education comments: On disability. 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 Gender identity (if verbalized by the patient): Male Spiritual care concerns: No Exam Day of Procedure 05/07/24 15:09
--- NOTE | 2024-05-08 07:00 | SUR.PREOP ---
Called and spoke with patient in regards to prep this morning. Patient states he does not feel as though he is cleaned out. He states he threw up most of the prep and has only had 2 bowel movements. Educated patient on the need to have a good prep for results, and patient agrees that he would like to reschedule. Educated patient to resume his blood thinner, and we would reach out to him in regards to rescheduling procedure. Patient understands and will resume BT, patient requests we call his brother Alton Peters to reschedule [phone].
--- NOTE | 2024-05-08 11:42 | SUR.PREOP ---
Called pt's brother Alton at pt's request to reschedule the pt's procedure so it was scheduled for May 10 at 730 am. Called brother back to check on date and time and prep and Alton said his brother wanted a later date for his procedure. Procedure changed to 05/25 at 1400. Instructed Alton to make sure John started back on his blood thinners since he was holding them for the procedure today. Given the patient's heart history and the possibility of the patient needing an antiemetic medicine to tolerate the prep we conferred with Dr. Dixon the Anesthesiologist to make sure it was safe for the patient to take Zofran. Dr. Mandujano reviewed the recent EKG's and said it was ok for the patient to have zofran if needed. Relayed this information to the brother Alton and said we would call John when his procedure was closed to review everything. Alton voiced understanding.
--- NOTE | 2024-05-18 14:38 | PC.NURSE ---
Spoke with _BROTHER CHRISTIAN regarding medication ELIQUIS AND PLAVIX. HE verbalizes understanding that the last dose of _ELIQUIS is to be taken on 05/22/2024 AND HE WILL NOT BE STOPPING PLAVIX and the Endoscopist will instruct them when to restart the Eliquis after the procedure.
[2024-08-18 15:46] VITALS: BMI 42.6
--- NOTE | 2024-08-22 10:03 | PC.NURSE ---
Spoke with _patient and caregiver Jan regarding medication _Plavix and Eliquis. Both verbalized understanding that the last dose is to be taken of Plavix was 08/20/24 and Eliquis 08/22/2024 and the Endoscopist will instruct them when to restart after the procedure.
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
--- OUTSIDE RECORDS SUMMARY | 2024-08-25 01:27 | XMS_ITS | Encounter Summary ---
Author Organization [facility] Facility Care Team Providers Care Public Information Director Name Role Phone Barbara Chen MD Primary Care Provider [phone] Valdo Wu DO Primary Care Provider [phone] Valdo Wu DO Primary Care Provider [phone] Martell Vasquez MD Unavailable [phone] Unknown, Notinfile Primary Care Provider Unavail able Unknown, Notinfile Primary Care Provider Unavail able Unknown, Notinfile Primary Care Provider Unavail able Unknown, Notinfile Primary Care Provider Unavail able Valdo Wu DO Primary Care Provider [phone] Mona Nieves MD Primary Care Provider Braulio Alexandre DO Unavailable [phone] Cedric Spence MD Unavailable [phone] Luz Maria Burns MD Unavailable Osman Pantoja MD Unavailable [phone] Azar Mccann MD Primary Care Provider [phone] Char Molina RN Unavailable [phone] Ruel Villa MD Unavailable [phone] Encounter Details Date Type Department Care Team (Latest Contact Info) Description 04/30/2016 Orders Only [facility] ProviderIbis MD [address] [place] [address] Social History Tobacco Use Types Packs/Day Years Used Date Smoking Tobacco: Never Assessed Sex and Gender Information Value Date Recorded Sex Assigned at Not on file Legal Sex Male 4:10 AM 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 [facility] Provider Final Res ult * CARDIOLOGY REPORT (04/30/2016 12:00 AM CDT) Anatomical Region Laterality Modality Other Narrative 04/30/2016 12:00 AM CDT Ordered by an unspecified provider. [facility] Provider CV CARDIAC SERVICES PROCE DURES Final Result * CARDIOLOGY REPORT (04/30/2016 12:00 AM CDT) Anatomical Region Laterality Modality Other Narrative 04/30/2016 12:00 AM CDT Ordered by an unspecified provider. [facility] Provider CV CARDIAC SERVICES PROCE DURES Final Result * CARDIOLOGY REPORT (04/30/2016 12:00 AM CDT) Anatomical Region Laterality Modality Other Narrative 04/30/2016 12:00 AM CDT Ordered by an unspecified provider. [facility] Provider CV CARDIAC SERVICES PROCE DURES Final Result documented in this encounter Visit Diagnoses Not on filedocumented in this encounter Additional Health Concerns Infection Onset Date Last Indicated Resolved Time COVID: Suspected 02/08/2020 02/09/2020 02/09/2020 9:07 PM CDT Respiratory Infection (GIAN), contact + droplet Comment:IP Review - Patient classified as Low Risk for COVID-19 and has one negative COVID-19 test. Patient meets criteria for COVID-19 isolation discontinuation. Edna Landers, FANCY NEEDLEWORKER 02/10/2020 Automatically added due to negative COVID-19 result. 02/09/2020 02/09/2020 02/10/2020 7:34 AM C DT COVID: Suspected 01/11/2024 01/11/2024 01/11/2024 8:35 PM CDT documented as of this encounter Care Teams Public Information Director Relationship Specialty Start Date End Date Barbara Chen MD PCP - General Family Medicine 07/12/17 10/05/18 Valdo Wu DO PCP - General 10/06/18 12/07/18 Valdo Wu DO PCP - General Internal Medicine 12/08/18 02/07/20 Unknown, Notinfile PCP - General 02/08/20 02/08/20 Unknown, Notinfile PCP - General 02/11/20 02/11/20 Unknown, Notinfile PCP - General 02/12/20 10/06/20 Unknown, Notinfile PCP - General 02/09/20 02/10/20 Valdo Wu DO PCP - General Internal Medicine 10/07/20 12/07/22 Mona Nieves MD PCP - General Family Practice 12/08/22 05/30/23 Azar Mccann MD [address] [place] [address] PCP - General Family Medicine 05/31/23 Martell Vasquez MD [address] [facility] [address] [place] [address] Banjo Repairer Cardiology 05/29/19 05/30/23 Braulio Alexandre DO [address] [place] [address] [address] [facility] [address] [place] [address] Pain Management 03/18/23 Cedric Spence MD [address] [facility] [address] [address] Consulting Physician Interventional Cardiology 03/18/23 [place] [address] [facility] [address] [place] [address] Consulting Physician Endocrinology Diabetes & Metabolism 03/18/23 Osman Pantoja MD [address] [place] [address] Referring Physician Emergency Medicine 04/22/23 Char Molina, RN [address] [facility] [address] [place] [address] SHOP Outpatient Server Developer 08/27/23 08/27/23 Ruel Villa MD [address] [facility] [address], [place] [address] Consulting Physician Clinical Cardiac Electrophysiology 01/15/24 documented as of this encounter
--- OUTSIDE RECORDS SUMMARY | 2024-08-25 01:27 | XMS_ITS | Referral Summary ---
Author Organization [facility] [employer] Address [address] [place] [address] Care Team Providers Care Bilingual Spanish Inbound Sales Name Role Phone Valdo Wu Primary Care Provider [phone] Source Comments [facility] [employer],non-owned Affiliates and Associated Physician Practices is amultiple site organization consisting of ambulatory clinics and hospital sitesin [place], [place] and [place]. This disclosure is being madepursuant to the Care Everywhere program and may not contain all information available regarding this patient. Last updated 18.[facility] [employer] Allergies Active Allergy Reactions Criticality Noted Date Comments Contrast-Iodinated Agents For Ct/Other Nausea and/or Vomiting Low 03/04/2016 States if he is premedicated with Prednisone Morphine Itching Low 09/02/2016 Morphine Urticaria Medium 06/05/2018 Medications * Be aware that medications may not be up to date on this document. Alwaysverify current medications with the patient. Medication Sig Dispensed Refills Start Date End Date Status metFORMIN (GLUCOPHAGE) 500 MG tablet Take 500 mg by mouth 2 times daily with morning and evening meal Active aspirin EC (ECOTRIN) 81 MG tablet Take 81 mg by mouth once daily Active atorvastatin (LIPITOR) 40 MG tablet Take 1 tablet by mouth at bedtime 30 tablet 3 06/09/2018 Active metoprolol succinate XL 24hr (TOPROL XL) 50 MG tablet Take 3 tablets by mouth 2 times daily 60 tablet 3 06/09/2018 Active melatonin 3 MG tablet Take 1 tablet by mouth at bedtime 30 tablet 06/09/2018 Active ALPRAZolam (XANAX) 0.5 MG tablet Take 0.5 mg by mouth 4 times daily Active digoxin (LANOXIN) 0.125 MG tablet Take 0.25 mg by mouth once daily Active potassium chloride (KLOR-CON) 20 MEQ packet Take 20 mEq by mouth once daily Active warfarin (COUMADIN) 5 MG tablet Take 5 mg by mouth daily at 5 PM Active albuterol HFA (PROVENTIL;VENTOL IN;PROAIR) 108 (90 BASE) MCG/ACT inhaler Inhale 2 puffs by mouth every 4 hours as needed for Shortness of Breath Active HYDROcodone-aceta minophen (NORCO) 7.5-325 MG tablet Take 1 tablet by mouth every 6 hours Active insulin lispro (HUMALOG) 100 UNIT/ML vial Inject 0-8 Units subcutaneously 2 times daily BID at 0730 and 1930 Sliding Scale Instructions: 0-150 = 0 units 151-200 = 1 unit 201-250 = 2 units 251-300 = 4 units 301-350 = 6 units 351-400 = 8 units 401+ = contact MD Active escitalopram (LEXAPRO) 5 MG tablet Take 1 tablet by mouth at bedtime 07/04/2018 Active methIMAzole (TAPAZOLE) 10 MG tablet Take 2 tablets by mouth once daily 07/05/2018 Active Active Problems Problem Noted Date Diagnosed Date Hyperthyroidism 07/03/2018 Dysarthria 07/01/2018 Cerebrovascular accident (CVA) 06/05/2018 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 Overview (10/11/2017): S/p 2 vessel bypass surgery in 2006 Atrial septal defect 02/08/2015 Persistent atrial fibrillation 02/08/2015 Atherosclerotic heart diseas e of [place] coronary artery without angina pectoris 01/10/2015 Other specified postprocedural states 09/29/2014 Overview (10/11/2017): Bronchoscopy 09/22/2014: Endotracheal Tube: minimal clear secretions Trachea: minimal clear secretions Right and Left Mainstem: moderate clear secretions Right Upper/Middle Lobes/Right Lower lobes: Airways normal and patent. Moderate clear secretion. Left Upper/Lower Lobes: Moderate clear secretion. Airways appeared normal and patent Acute respiratory failure with hypoxia 5 Acute respiratory failure with hypercapnia 09/29 Poisoning by unspecified claudio cotics, accidental (unintentional), sequela 09/29/2014 meterman current use of anticoagulant 5 Chronic systolic congestive heart failure 2014 Disorder of adrenal gland 09/29/2014 Other specified diseases of liver 09/29/2014 Pneumonitis due to inhalation of food and vomit 09/29/2014 Essential (primary) hypertension 09/27/2014 Altered mental status 09/27/2014 Obstructive sleep apnea 09/27/2014 Acute respiratory distress syndrome 09/22/2014 Chronic obstructive pulmonary disease 09/22/2014 Anxiety disorder 09/22/2014 Social History Tobacco Use Types Packs/Day Years Used Date Smoking Tobacco: Former Cigarettes Q uit: 02/2018 Smokeless Tobacco: Never Tobacco Cessation:Counseling Given: No Alcohol Use Standard Drinks/Week Comments No 0 (1 standard drink = 0.6 oz pur e alcohol) Sex and Gender Information Value Date Recorded Sex Assigned at Not on file Gender Identity Not on file Sexual Orientation Not on file Last Filed Vital Signs Vital Sign Reading Time Taken Comments Blood Pressure 111/65 07/04/2018 11:56 AM [employer] Pulse 96 07/04/2018 11:56 AM [employer] Temperature 37 C (98.6 F) 07/04/2018 11:56 AM [employer] Respiratory Rate 20 07/04/2018 11:56 AM [employer] Oxygen Saturation 93% 07/04/2018 11:56 AM [employer] Inhaled Oxygen Concentration - - Weight 88.5 kg (195 lb) 06/30/2018 4:09 PM [employer] Height 177.8 cm (5' 10 ) 06/30/2018 4:09 PM [employer] Body Mass Index 27.98 06/30/2018 4:09 PM [employer] Functional Status Functional Status Response Date of Assess ment Is person deaf or have serious hearing difficult y? No 07/04/2018 Is person blind or have serious difficulty seein g? No 07/04/2018 Does person have serious dif ficulty walking/climbing stairs? No 07/04/2018 Does person have difficulty dressing/bathing? No 07/04/2018 Does person have difficulty doing errands alone? Yes 07/04/2018 Cognitive Status Response Date of Assessm ent Does person have difficulty concentrating/remembering/making decisions? Yes 07/04/2018 Plan of Treatment Not on file Advance Directives Documents on File Type Date Recorded Patient Acquisition Consultant Expl anation Adv Directive/Living Will/POA 06/13/2018 5:46 AM Advance Directives and Livin g Will 09/22/2014 12:00 AM * Full Code (Latest Code Status on File) Date Activated Date Inactivated Comments 07/01/2018 3:17 AM 07/04/2018 5:56 PM * Full Code Date Activated Date Inactivated Comments 06/06/2018 6:24 PM 06/06/2018 6:26 PM * Full Code Date Activated Date Inactivated Comments 06/05/2018 9:26 PM 06/06/2018 6:24 PM Care Teams Bilingual Spanish Inbound Sales Relationship Specialty Start Date End Date Valdo Wu DO [address] [place] [address] [facility] - General 02/16/22
--- OUTSIDE RECORDS SUMMARY | 2024-08-25 01:27 | XMS_ITS | Referral Summary ---
Author Organization [facility] [place] [facility] [place] [address] [facility] [address] Address [address] [place] [address] Care Team Providers Care [employer] Name Role Phone Braulio Alexandre DO Unavailable [phone] Cedric Spence MD Unavailable [phone] Luz Maria Burns MD Unavailable Osman Pantoja MD Unavailable Azar Mccann MD Primary Care Provider [phone] Ruel iVlla MD Unavailable Encounters Date Type Department Care Team Description 08/21/2024 Telephone [facility] Cardiology [address] [place] [address] Cedric Spence MD 08/17/2024 Telephone [facility] Diabetes and Endocrinology [address] [place] [address] Ricarda Myers NP Med Refill 07/31/2024 10:00 AM POWERHOUSE ATTENDANT Ancillary Procedure [facility] [address] [facility] [address], [place] [address] Presence of biventricular cardiac pacemaker (Primary Dx); Ischemic cardiomyopathy 07/31/2024 9:30 AM POWERHOUSE ATTENDANT Office Visit [facility] Diabetes and Endocrinology [address] [place] [address] Ricarda Myers NP Type 2 diabetes mellitus with hyperglycemia, without long-term current use of insulin (HCC) (Primary Dx); Hypertension associated with type 2 diabetes mellitus (HCC); Hyperlipidemia associated with type 2 diabetes mellitus (HCC); Diabetic polyneuropathy associated with type 2 diabetes mellitus (CMS/HCC) (HCC); Hyperthyroidism 06/22/2024 Telephone [facility] Primary Care at [address] [address] Chelsi Vail MA 06/04/2024 Telephone [facility] at [address] [address] Cynthia Arrington MA from Last 3 Months Allergies Active Allergy Reactions Criticality Noted Date Comments Iodinated Contrast Media Itching Low 03/04/2016 Morphine Itching Low 09/02/2016 Medications albuterol HFA (PROVENTIL HFA,VENTOLIN HFA,PROAIR HFA) 90 mcg/actuation inhaler Inhale 2 puffs every 4 (four) hours as needed for shortness of breath Active atorvastatin (LIPITOR) 80 mg tablet Take 1 tablet (80 mg total) by mouth daily 30 tablet 11 024 2024 Active clopidogreL (PLAVIX) 75 mg tabletIndicatio ns:myocardial infarction prevention,card iovascular disease Take 1 tablet (75 mg total) by mouth daily 90 tablet 11 024 Active baclofen (LIORESAL) 10 mg tablet Take 1 tablet (10 mg total) by mouth 2 (two) times a day 024 Active nitroglycerin (NITROSTAT) 0.[address] 1 tablet (0.4 mg total) under the tongue every 5 (five) minutes as needed for chest pain 023 Active fluticasone propionate (FLONASE) 50 mcg/actuation nasal spray Administer 2 sprays into each nostril daily as needed for rhinitis Active bumetanide (BUMEX) 2 mg tablet Take 1 tablet (2 mg total) by mouth 2 (two) times a day 60 tablet 11 024 2024 Active insulin glargine 100 unit/mL (3 mL) pen for injection Inject 8 Units under the skin nightly 15 mL Active BD Ultra-Fine Short Pen Needle 31 gauge x 5/16 needle USE TO INJECT INSULIN NIGHTLY Active lidocaine (LIDODERM) 5 % PLACE 1 PATCH ON PAINFUL AREA ON THE BACK FOR 12 HOURS PER DAY, REMOVE FOR 12 HOURS. 90 patch 2 Active Additional Information Patient not taking.Reported on 07/31/2024 metoprolol XL (TOPROL-XL) 100 mg 24 hr tabletIndicatio ns:Longstanding persistent atrial fibrillation (CMS/HCC) (HCC) Take 0.5 tablets (50 mg total) by mouth daily Active diclofenac sodium 3 % gel Apply 1 Application topically 2 (two) times a day 100 g 1 Active Additional Information Patient not taking.Reported on 07/31/2024 naloxone (NARCAN) 4 mg/actuation spray,non-aeros ol PLEASE SEE ATTACHED FOR DETAILED DIRECTIONS Active oxyCODONE (ROXICODONE) 5 mg immediate release tablet TAKE 1 TABLET BY MOUTH TWICE A DAY NEEDED FOR PAIN. MUST LAST 30 DAYS Active Eliquis 5 mg tablet TAKE 1 TABLET(5 MG) BY MOUTH EVERY 12 HOURS 60 tablet 10 Active pregabalin (LYRICA) 100 mg capsule Take 1 capsule (100 mg total) by mouth 2 (two) times a day 60 capsule 2 Active bumetanide (BUMEX) 1 mg tabletIndicatio ns:Essential (primary) hypertension TAKE 2 TABLETS BY MOUTH 2 TIMES A DAY. 360 tablet 3 Active sacubitriL-vals rusty (Entresto) 24-26 mg tablet TAKE 0.5 TABLETS BY MOUTH 2 TIMES A DAY. 180 tablet 025 2024 Active metFORMIN (GLUCOPHAGE) 500 mg tabletIndicatio ns:Type 2 diabetes mellitus with hyperglycemia, without long-term current use of insulin (HCC) TAKE 2 TABLETS BY MOUTH TWICE A DAY WITH FOOD 360 tablet 1 Active amiodarone (PACERONE) 200 mg tablet TAKE 2 TABLETS BY MOUTH 2 TIMES A DAY FOR 7 DAYS, THEN 1 TABLET DAILY. 90 tablet 1 Active GaviLyte-G 236-22.74-6.74 -5.86 gram solution 240 ML ORALLY EVERY 10 MINUTES FOLLOW INSTRUCTIONS FROM YOUR PROVIDER Active citalopram (CeleXA) 20 mg tablet Take 1 tablet (20 mg total) by mouth daily Active DULoxetine DR (CYMBALTA) 20 mg capsule Take 1 capsule (20 mg total) by mouth daily Active tirzepatide (MOUNJARO) 7.5 mg/0.5 mL pen injectorIndicat ions:Type 2 diabetes mellitus with hyperglycemia, without long-term current use of insulin ([facility]) Inject 7.5 mg under the skin every 7 days 6 mL 3 025 2025 Active spironolactone (ALDACTONE) 25 mg tablet TAKE 1 TABLET BY MOUTH DAILY 90 tablet Active methIMAzole (TAPAZOLE) 5 mg tabletIndicatio ns:Hyperthyroid ism Take 5 tablets (25 mg total) by mouth daily 150 tablet 025 2024 Active empagliflozin (JARDIANCE) 25 mg tabletIndicatio ns:Type 2 diabetes mellitus with hyperglycemia, without long-term current use of insulin ([facility]) Take 1 tablet (25 mg total) by mouth daily 90 tablet 025 2025 Active empagliflozin (JARDIANCE) 25 mg tablet Take 1 tablet (25 mg total) by mouth daily 2024 Discontinued(Eitan rocha) tirzepatide (Mounjaro) 5 mg/0.5 mL pen injectorIndicat ions:Type 2 diabetes mellitus with hyperglycemia, without long-term current use of insulin ([facility]) Inject 5 mg under the skin every 7 days 6 mL 3 024 2024 Discontinued methIMAzole (TAPAZOLE) 5 mg tabletIndicatio ns:Hyperthyroid ism Take 5 tablets (25 mg total) by mouth daily 150 tablet 3 024 2024 Discontinued spironolactone (ALDACTONE) 25 mg tablet TAKE 1 TABLET (25 MG TOTAL) BY MOUTH DAILY. 100 tablet 024 2024 Discontinued amiodarone (PACERONE) 200 mg tablet TAKE 2 TABLETS BY MOUTH 2 TIMES A DAY FOR 7 DAYS, THEN 1 TABLET DAILY. 88 tablet 024 2024 Discontinued Active Problems Problem Noted Date Diagnosed Date Behavioural, emotional, and social difficulties (BESD) 01/17/2024 Chest wall pain 01/17/2024 Hypertension associated with type 2 diabetes linus litus 11/16/2023 Assessment & Plan (07/31/2024 8:52 AM POWERHOUSE ATTENDANT): Chronic problem. Currently taking Entresto 12-13mg bid, amiodarone 200mg daily, metoprolol XL 100mg daily, bumex 2mg bid, spironolactone 25mg daily Assessment & Plan (03/16/2024 10:21 AM CDT): Chronic problem. Currently taking Entresto 12-13mg bid, amiodarone 200mg daily, metoprolol XL 100mg daily, bumex 2mg bid, spironolactone 25mg daily Assessment & Plan (11/16/2023 3:02 PM CDT): Chronic problem. Currently taking entresto 24-26mg bid, metoprolol XL 100mg daily, bumex 2mg bid, spironolactone 25mg daily Ischemic cardiomyopathy 11/15/2023 Acute mid back pain 09/09/2023 Assessment & Plan (09/09/2023 7:47 AM POWERHOUSE ATTENDANT): Complaining of acute upon chronic back pain. Since he had CPR and pain in mid back is more acute we will get a thoracic spine x-ray. Patient is most concerned about his back pain and chronic pain medications today. He is unhappy with his current pain service. He is looking for a new pain management doctor. Cardiac arrest with ventricular fibrillation (CM S/HCC) 08/20/2023 Assessment & Plan (09/09/2023 7:40 AM POWERHOUSE ATTENDANT): Patient is actually doing well status post cardiac arrest, resuscitation and status post to stent placements. Denies excessive shortness of breath. He already had follow-up with Cardiology and he is to follow-up with electrophysiology in a few weeks for discussion of implantation of pacemaker/defibrillator Hyperlipidemia associated with type 2 diabetes maribell live 04/25/2023 Assessment & Plan (07/31/2024 8:51 AM POWERHOUSE ATTENDANT): Chronic problem. Currently taking Atorvastatin 80mg. Last lipid panel: 01/12/24 LDL=84, TG=65. Assessment & Plan (03/16/2024 10:21 AM CDT): Chronic problem. Currently taking Atorvastatin 80mg. Last lipid panel: 01/12/24 LDL=84, TG=65. Assessment & Plan (11/16/2023 3:03 PM CDT): Chronic problem. Currently taking Atorvastatin 40mg. Last lipid panel: 09/13/23 LDL=95, NC=108. Assessment & Plan (04/26/2023 9:32 AM CDT): Chronic problem. Currently taking Atorvastatin 40mg. Last lipid panel: 11/12/22 LDL=52, TQ=732. Diabetic polyneuropathy asso ciated with type 2 diabetes mellitus ([facility]) 03/19/2023 Assessment & Plan (07/31/2024 10:20 AM POWERHOUSE ATTENDANT): Chronic problem. Currently sees Dr Mejia in [place] for pain. Chronic problem. Currently taking lyrica 100mg bid, duloxetine 40mg every morning & lidocream to his feet. Reviewed foot care; needs to lotion daily. Aware to check feet nightly, not to go barefoot. Assessment & Plan (03/16/2024 10:22 AM CDT): Chronic problem. Currently sees Dr Mejia in [place] for pain. Chronic problem. Currently taking lyrica 100mg bid, duloxetine 60mg every morning & lidocream to his feet. Reviewed foot care; needs to lotion daily. Aware to check feet nightly, not to go barefoot. Assessment & Plan (11/16/2023 3:03 PM CDT): Chronic problem. Currently sees Dr Mejia in [place] for pain. Currently taking lyrica 100mg bid, duloxetine 60mg every morning & lidocream to his feet. Aware to check feet nightly & to not go barefoot. Assessment & Plan (04/26/2023 9:32 AM CDT): Chronic problem. Currently sees Dr Mejia in [place] for pain. Currently taking lyrica 100mg bid, duloxetine 60mg every morning & lidocream to his feet. Aware to check feet nightly & to not go barefoot. Assessment & Plan (03/19/2023 4:39 PM CDT): Chronic. Has a degree of neuropathic pain in his lower extremities. Likely has a component of diabetic neuropathy. Pain management is increasing his Lyrica in attempts to decrease his oxycodone. Defer Lyrica and oxycodone to pain management. In the future could consider Qutensa if he can find it approved provider as this is not something we offer Type 2 diabetes mellitus wit h hyperglycemia, without long-term current use of insulin 01/07/2023 Assessment & Plan (07/31/2024 10:12 AM POWERHOUSE ATTENDANT): Chronic problem. A1c uncontrolled & worsening from 7.8% 03/16/24 to now 8.5%. Reviewed that goal is less than 7.0% Will increase Mounjaro from 5mg to 7.5mg on next refill. He will check at home to see if he has jardiance & is taking it. No recent fills. Current medications: Metformin 1000mg twice daily Mounjaro 7.5 mg weekly Jardiance 25mg daily DM eye exam [facility] less than 1 yr ago. Letter sent to get copy of report. Sedentary lifestyle. Strive for regular exercise (30min most days) and diet (get at least 4-5 servings of fruit and veggies daily, avoid processed foods, increase lean protein intake and decrease carb portions as well as fruit juices, regular soda & desserts). Watch carbs and simple sugars. Check the blood sugar daily. Check the feet daily for skin breakdown and infection. Assessment & Plan (03/16/2024 10:56 AM CDT): Chronic problem. A1c was 7.8% 11/16/23 & remains stable at 7.8% today. Reviewed that goal is less than 7.0%. Will increase mounjaro to 5mg on next refill. Current medications: Metformin 1000mg twice daily Mounjaro 5mg weekly Jardiance 25mg daily DM eye exam 06/2023 [facility]; letter sent to get copy. Reports he was seen at [facility] in [place] in 2023. Will send letter there also. UTD on labs. Sedentary lifestyle. Strive for regular exercise (30min most days) and diet (get at least 4-5 servings of fruit and veggies daily, avoid processed foods, increase lean protein intake and decrease carb portions as well as fruit juices, regular soda & desserts). Watch carbs and simple sugars. Check the blood sugar daily. Check the feet daily for skin breakdown and infection. Assessment & Plan (11/16/2023 3:38 PM CDT): Chronic problem. Near goal. A1c was 9.8% 08/20/23 and now 7.8%. Stop the Rybelsus & start Mounjaro 2.5mg weekly. Current medications: Metformin 1000mg twice daily Mounjaro 2.5mg weekly Jardiance 25mg daily DM eye exam 06/2023 [facility]; letter sent to get copy. Sedentary lifestyle. Strive for regular exercise (30min most days) and diet (get at least 4-5 servings of fruit and veggies daily, avoid processed foods, increase lean protein intake and decrease carb portions as well as fruit juices, regular soda & desserts). Watch carbs and simple sugars. Check the blood sugar daily. Check the feet daily for skin breakdown and infection. Assessment & Plan (09/09/2023 7:45 AM POWERHOUSE ATTENDANT): Patient missed his follow-up with endocrinology while he was hospitalized. Encouraged him to call to reschedule. A1c was 9.8% when checked in hospital. Continue current medications. Encouraged lifestyle changes. Assessment & Plan (04/26/2023 9:30 AM CDT): Chronic problem. Near goal. A1c was 7.8% 12/2022 to now 7.6%. Current medications: Metformin 1000mg twice daily Rybelsus 14mg daily Jardiance 25mg daily Will update labs. Will update labs today. Does not mychart. Verified phone #/address to contact re: results. Letter to [facility] for last years DM eye exam. Has f/u appt 06/21/23. Sedentary lifestyle. Strive for regular exercise (30min most days) and diet (get at least 4-5 servings of fruit and veggies daily, avoid processed foods, increase lean protein intake and decrease carb portions as well as fruit juices, regular soda & desserts). Watch carbs and simple sugars. Check the blood sugar daily. Check the feet daily for skin breakdown and infection. Assessment & Plan (03/19/2023 4:38 PM CDT): Chronic. Suboptimally controlled on last labs. Patient reports they checked his labs during some of the recent hospitalization and that his Rybelsus is now 14 mg daily. Patient does see Endocrinology Assessment & Plan (01/07/2023 4:44 PM CDT): Seems to be well controlled Because of the diarrhea, I have recommended to lower the dose of the metformin , to 1000 mg once a day only Lumbar herniated disc 01/01/2023 Overview (01/01/2023): Disc bulge with probable superimposed left paracentral to left foraminal disc protrusion/extrusion at L5-S1. Associated left lateral recess stenosis with bilateral neural foraminal narrowing as well as possible focal impingement of descending left-sided S1-S2 level nerve root on lumbar MRI 12/29/2022 History of substance abuse (CMS/[facility]) 12/08/2022 Assessment & Plan (03/19/2023 4:35 PM CDT): History of chronic substance abuse. All controlled substances deferred to specialists. He must see pain management for any narcotic pain med. If requiring benzodiazepines her mental health issues of the knee will have to get them from a psychiatrist. Class 3 obesity with alveola r hypoventilation, serious comorbidity, and body mass index (BMI) of 40.0 to 44.9 in adult 04/06/2022 Assessment & Plan (09/09/2023 7:49 AM POWERHOUSE ATTENDANT): Chronic. Suboptimally controlled. Encouraged low carb diet, healthy diet changes Assessment & Plan (03/19/2023 4:36 PM CDT): Chronic. Suboptimally controlled. Needs improvement. Counseled to try to follow a healthy diet and get regular exercise as well as work on weight loss History of mitral valve repair 02/11/2020 Assessment & Plan (03/19/2023 4:35 PM CDT): Chronic. Follows with cardiology Mitral insufficiency 05/30/2019 High risk medication use 10/06/2018 Hyperthyroidism 07/03/2018 Assessment & Plan (07/31/2024 10:20 AM POWERHOUSE ATTENDANT): Chronic problem. Currently taking methimazole 25 mg daily (04/06/24). Has not yet repeated labs. States he has no time today but will come back Wednesday to get them drawn. Will update labs today. Does not mychart. Verified phone #/address to contact re: results. Assessment & Plan (03/16/2024 10:56 AM CDT): Chronic problem. Clinically stable. Currently taking methimazole 20 mg daily (12/20/23). Has not yet repeated labs. States he's too busy today but will come back to get them done. Reminder set to check to see if he's had labs repeated. Will update labs today. Does not mychart. Verified phone #/address to contact re: results. Assessment & Plan (11/16/2023 3:50 PM CDT): Chronic problem. Clinically stable. Currently taking methimazole 15mg daily. Will update labs today. Does not mychart. Verified phone #/address to contact re: results. Assessment & Plan (04/26/2023 9:31 AM CDT): Chronic problem. Clinically stable. Currently taking methimazole 15mg daily. Will update labs today. Does not mychart. Verified phone #/address to contact re: results. Assessment & Plan (03/19/2023 4:36 PM CDT): Chronic. On methimazole. Follows with endocrinology Assessment & Plan (01/07/2023 4:43 PM CDT): Related to a multinodular goiter, as per ultrasound Graves disease is still in the differential I have requested TFTs including TSI and TSH receptor antibodies Will adjust the dose of the Tapazole accordingly to keep the TSH within normal range as well as free T4 Also given another order to repeat TFTs in 2 months. History of stroke 06/05/2018 12/08/2022 Assessment & Plan (03/19/2023 4:35 PM CDT): Chronic. Continue risk factor modification patient no longer on ASA as he is on full-dose anticoagulant Hx of CABG 02/05/2016 Assessment & Plan (03/19/2023 4:36 PM CDT): Chronic. Continue risk factor modification. On high-intensity statin, beta- jose and Jardiance Chronic low back pain 12/31/2015 12/08/2022 Assessment & Plan (03/19/2023 4:33 PM CDT): Chronic. Patient has chronic opioid dependence. Defer medication and care to pain management. Patient is aware that I will not prescribe him narcotics given his history of substance abuse Degeneration of lumbar intervertebral disc 12/3012/08/2022 Assessment & Plan (03/19/2023 4:34 PM CDT): Chronic. Struggles with back pain. Patient has a degree of opioid dependence. He follows with pain management. Defer narcotics and Lyrica to them Spinal stenosis of lumbar region 12/31/2015 12/08/2022 Assessment & Plan (03/19/2023 4:37 PM CDT): Chronic. Patient struggles with back pain. Continue Lyrica and narcotic pain medications per his pain management physician. Patient is aware I will not manage these given his history of substance abuse Longstanding persistent atrial fibrillation ([facility] /HCC) 02/08/2015 Assessment & Plan (09/09/2023 7:47 AM POWERHOUSE ATTENDANT): Continues Eliquis, also on Plavix and aspirin since discharge and placement of 2 new stents. Assessment & Plan (03/19/2023 4:37 PM CDT): Chronic. On digoxin and NOAC. Defer medication and care to his auditing clerk. Needs to keep his hyperthyroidism under control Atrial septal defect 02/08/2015 12/08/2022 Atherosclerotic heart diseas e of [place] coronary artery without angina pectoris 01/10/2015 Overview (12/08/2022): S/p 2 vessel bypass surgery in 2006 Assessment & Plan (03/19/2023 4:32 PM CDT): Chronic. Denies chest pain. Continue medication and care per Cardiology. LDL goal less than 70 Chronic combined systolic an d diastolic congestive heart failure ([facility]/HCC) 09/29/2014 12/08/2022 Assessment & Plan (09/09/2023 7:45 AM POWERHOUSE ATTENDANT): EF 40-50%. Has been started on Entresto. He is on Bumex 2 mg twice daily. He is to continue amiodarone 200 mg once daily. He is confirmed he has picked up all discharge medications. He is to recheck a BMP today Assessment & Plan (03/19/2023 4:33 PM CDT): Chronic. Currently compensated. Patient has had multiple recent admissions. Hopefully cardiology has been able to figure out regimen to decrease risk of recurrent hospitalization. Encouraged compliance with current meds Bilateral adrenal adenomas 09/29/201412/08 Overview (12/08/2022): Noted incidentally on old CT reports in 2013 and 2019 [employer] continuous churn current use of anticoagulant 5 12/08/2022 Assessment & Plan (03/19/2023 4:36 PM CDT): Chronic for AFib. Bleeding precautions recommended Essential (primary) hypertension 09/27/2014 12/08/2022 Assessment & Plan (03/19/2023 4:34 PM CDT): Chronic. Very well controlled. Patient's cardiac measured being use more for his CHF, AFib and CAD Obstructive sleep apnea 09/27/2014 12/09/19 Assessment & Plan (03/19/2023 4:37 PM CDT): Chronic. Uses CPAP/BiPAP type machine nightly. Reports he follows with a counterintelligence/humint specialist. Patient declines referral to [facility] pulmonology/sleep Medicine Generalized anxiety disorder 09/22/2014 Assessment & Plan (03/19/2023 4:35 PM CDT): Chronic. Patient reports fair control. Continue duloxetine at current dose Chronic obstructive pulmonary disease 09/22/2014 12/08/2022 Assessment & Plan (03/19/2023 4:33 PM CDT): Chronic. Fair control. Follows with pulmonology Resolved Problems Problem Noted Date Diagnosed Date Resolved Date Atrial fibrillation ([facility]/HCC) 01/11/2024 01/11/2024 Encounter for Medicare annual wellness exam 06/02/2023 11/15/2023 Assessment & Plan (06/02/2023 3:18 PM POWERHOUSE ATTENDANT): A(n) yearly Medicare Annual Wellness Visit has been performed today. John Bauer Fran is not up to date on screening tests. He is in need of Prostate screening, Lung cancer screening, hepatitis C screening, Colon cancer screening, and Cholesterol screening. He is not up to date on needed preventative vaccinations; He is in need of Influenza, Pneumonia (Prevnar-13 or Pneumovax-23), and Covid-19 (booster). We discussed healthy lifestyle habits, educational material has been given. Medications reviewed, changes documented as per the medical record and discussed with patient along with risks vs benefits. Return in 6 months Encounter for monitoring digoxin therapy 12/14/2022 09/09/2023 Body mass index 40.0-44.9, adult ([facility]) 04/06/2022 12/08/2022 Mixed hyperlipidemia 10/08/2020 024 Assessment & Plan (03/19/2023 4:36 PM CDT): Chronic. On atorvastatin. Tolerates Old [place] (myocardial infarction) 05/30/2019 12/08/2022 Congestive heart failure ([facility]) 10/06/2018 03/19/2023 GARCIA (dyspnea on exertion) 10/06/2018 Dysarthria 07/01/2018 12/08/2022 12/08/2022 DJD (degenerative joint disease) 04/14/2016 12/09/19 23 12/08/2022 Gastric ulcer 04/14/2016 12/08/2022 12/08/2022 Pneumonia 04/14/2016 12/08/2022 12/08/2022 ST elevation (STEMI) myocardial infarction 02/05/2016 12/08/2022 MR (mitral regurgitation) 02/05/2016 GI bleed 02/05/2016 12/08/2022 12/08/2022 Other specified diseases of liver 09/29/2014 023 12/08/2022 Pneumonitis due to inhalatio n of food and vomit ([facility]) 09/29/2014 12/08/2022 12/08/2022 Poisoning by unspecified claudio cotics, accidental (unintentional), sequela 09/29/2014 12/08/2022 05/ Altered mental status 09/27/2014 12/08/20222022 Acute respiratory failure wi th hypercapnia ([facility]) 09/22/2014 12/08/2022 Immunizations Name Administration Dates Next Due Influenza, Quadrivalent, Hig h Dose, Preservative Free, Intrr 05/31/2023 Influenza, Unspecified 07/12/2022(Deferred: Nancy ent Refused) Pfizer SARS-CoV-2 Monovalent Vaccination (12+ Yrs) PURPLE 10/01/2020,09/10/2020 Pneumococcal Conjugate Pcv20 05/31/2023 Social History Tobacco Use Types Packs/Day Years Used Date Smoking Tobacco: Former Cigarettes 1 30 0 10/08/1987 - 10/07/2017 Passive Smoke Exposure: Past Smokeless Tobacco: Current Chew [facility] Utilities Answer Date Recorded In the past 12 months has [facility], gas, oil, or water company threatened to [...] often do you attend chur ch or evangelical services? More than 4 times per year 01/17/2024 Do you belong to any clubs o r organizations such as taoism groups, unions, fraternal or athletic groups, or [...] the money to buy more. Never true 07/08/20 24 Within the past 12 months, t he [...] mortgage or rent on time? Patient declined 08/27/19 In the last 12 months, how many places have you lived? 0 08/27/2023 In the last 12 months, was t here a time when you did not have a steady place to sleep or slept in a [facility] (including now)? Patient declined 08/27/2023 Housing Stability [...] any time in the past 12 m [facility], were you homeless or living in a m[facility] (including now)? No 01/17/2024 Personal Safety Answer Date Recorded Have you ever been in or are you currently in a harmful physical or emotional relationship or is someone making you feel afraid or unsafe? Yes 01/17/2024 Sex and Gender Information Value Date Recorded Sex Assigned at Not on file Legal Sex Male 4:10 AM POWERHOUSE ATTENDANT Gender Identity Male 10/12/2023 1:45 PM CDT Sexual Orientation Not on file Last Filed Vital Signs Vital Sign Reading Time Taken Comments Blood Pressure 126/72 07/31/2024 9:04 AM POWERHOUSE ATTENDANT Pulse 75 07/31/2024 9:04 AM POWERHOUSE ATTENDANT Temperature 36.8 C (98.3 F) 02/02/2024 1:18 PM CDT Respiratory Rate 18 07/31/2024 9:04 AM POWERHOUSE ATTENDANT Oxygen Saturation 95% 05/22/2024 1:23 PM POWERHOUSE ATTENDANT Inhaled Oxygen Concentration - - Weight 130.6 kg (288 lb) 07/31/2024 9:04 AM POWERHOUSE ATTENDANT Height 172.7 cm (5' 7.99 ) 07/31/2024 9:04 AM CS T Body Mass Index 43.8 07/31/2024 9:04 AM POWERHOUSE ATTENDANT Plan of Treatment Not on file Medical Devices Implanted Type Area Equipment Validation Engineer Device Identifier Shelf Expiration Date Model / Serial / Lot Womai Caryl Angio-Seal Vip 6fr Closere Device [id number] - [id number] - [id number] Implanted:Qty : 1 on 08/24/2023 by Dane Gould MD at [facility] Collagen Right: Common Femoral Artery Womai Caryl 12/17/2023 [id number] / [id number] / [id number] [employer] Vascade Mvp 6-12fr Venous Closure [id number]-[id number] - [id number] - [id number] Implanted:Qty : 1 on 01/14/2024 by Ruel Villa MD at [facility] Collagen [employer] Inc 10/12/2025 [id number] / [id number] / [id number] Grewal Vascular Active Fixation Steroid Eluting Latex Free Sterile Right Atrium Ventricle Ultipace 58cm Fds9929/58 - [id number] - [id number] Implanted:Qty : 1 on 01/14/2024 by Ruel Villa MD at [facility] Lead Grew[employer] Vascular [id number] 11/08/2026 [id number]/ [id number] / [id number] / [employer] Quartet 4.7fr 86cm Quadripolar Is-4 Llll Connector 8 Curve Low 1456q/86 - [id number] - [id number] Implanted:Qty : 1 on 01/14/2024 by Ruel Villa MD at [facility] Lead [employer] [id number] 11/08/2026 1456Q/86 / [id number] / Grewal Vascular Pacemaker Dual Chamber Alligator Trapper P Mri Compatible Quadra Allure Mp [id number] - [id number] - [id number] Implanted:Qty : 1 on 01/14/2024 by Ruel Villa MD at [facility] Pacemaker [employer] [id number] 03/11/2025 [id number] / [id number] / [employer] Stent Coronary De Rx Cocr Ors Msn 2.5x40mm [id number] - [id number] - [id number] Implanted:Qty : 1 on 08/24/2023 by Dane Gould MD at [facility] Stent Left: Anterior Descending Cornary Artery [employer] Inc 04/13/2025 [id number] / [id number] / [id number] [employer] Inc Stent Coronary De Rx Cocr Ors Msn 4.0x13mm [id number] - [id number] - [id number] Implanted:Qty : 1 on 08/24/2023 by Dane Gould MD at [facility] Stent Left: Anterior Descending Cornary Artery [employer] 01/25/2025 [id number] / [id number] / [id number] Procedures Procedure Name Priority Date/Time Associated Diagnosis Comments DEVICE CHECK - REMOTE Routine 07/31/2024 10:18 AM POWERHOUSE ATTENDANT Ischemic cardiomyopathy POCT GLUCOSE Routine 07/31/2024 9:19 AM POWERHOUSE ATTENDANT Type 2 diabetes mellitus with hyperglycemia, without long-term current use of insulin (HCC) POCT HEMOGLOBIN A1C Routine 07/31/2024 9 :19 AM POWERHOUSE ATTENDANT Type 2 diabetes mellitus with hyperglycemia, without long-term current use of insulin (HCC) EGFR STAT 01/16/2024 10:43 PM CDT LIPID PANEL Routine 01/12/2024 5:02 AM CDT HEPATITIS C ANTIBODY Routine 08/20/2023 8:41 PM POWERHOUSE ATTENDANT ALBUMIN CREATININE RATIO, URINE Routine 04/26/2023 9:46 AM CDT Type 2 diabetes mellitus with hyperglycemia, without long-term current use of insulin (CMS/HCC) (HCC) from Last 3 Months or Most Recently Relevant to Health Maintenance Results * DEVICE CHECK - REMOTE (07/31/2024 10:18 AM POWERHOUSE ATTENDANT) Anatomical Region Laterality Modality Other Narrative 07/31/2024 11:53 AM POWERHOUSE ATTENDANT Table formatting from the original result was not included. BiV PACEMAKER CHECK remote Patient ID: John Peters is a 63 y.o. male. This patient received a Grewal BiV Pacemaker. They had a routine in office device interrogation on 07/31/24. Device implant indications: Ischemic cardiomyopathy Interrogation of the patient's device demonstrates the following: Presenting EGM: Bi V paced @ 70 bpm Original Device Settings Right Ventricle Left Ventricle Sensitivity (mV) 4.0 mV N/A mV Pacemaker Outputs 2.0 V @ 0.4 ms 2.5 V @ 0.4 ms Testing Measurements Right Ventricle Left Ventricle Sensitivity (mV) Greater than 12 mV Not done mV Impedence (Ohms) 460 ohms 650 ohms Pace Threshold 1.0 V @ 0.4 ms 1.25 V @ 0.4 ms Pacing % 100 % 100 % Battery Status: 8.1 years to JORGE LUIS Episodes last 90 days/Comments: There were 2 high ventricular rate episodes both lasting 2 seconds. NORMAL DEVICE FUNCTION PROGRAMMED MEDICATIONS: Anti-coagulant(s): Eliquis 5 mg twice daily, Plavix 75 mg daily Anti-arrhythmic(s): Amiodarone 400 mg twice daily, Toprol-XL 50 mg daily PLAN: 1) Grewal BiV Pacemaker evaluation 2) Grewal remote transmission scheduled in 3 months. 3) Programming appropriate for device settings Eduardo Gonzalez, RN us Ruel Villa MD [facility] PROC EDURES Final Result * (ABNORMAL) POCT hemoglobin A1c (07/31/2024 9:19 AM POWERHOUSE ATTENDANT) Hemoglobin A1C, POC 8.5 4.0 - 5.6 % Blood 07/31/2024 9:19 AM POWERHOUSE ATTENDANT us Ricarda Myers NP POINT OF CARE TEST ORDERA BLES Final Result * (ABNORMAL) POCT glucose (07/31/2024 9:19 AM POWERHOUSE ATTENDANT) Glucose Blood, POC 150 mg/dL Blood 07/31/2024 9:19 AM POWERHOUSE ATTENDANT us Ricarda Myers NP POINT OF CARE TEST ORDERA BLES Final Result * eGFR (01/16/2024 10:43 PM CDT) eGFR >90 >=60 mL/min/1. 73 m2 Comment: Interpretive Data Reference Interval Normal >/= 90 mL/min/1.73m2 Mildly decreased* 60 - 89 mL/min/1.73m2 Mildly to moderately decreased 45 - 59 mL/min/1.73m2 Moderately to severely decreased 30 - 44 mL/min/1.73m2 Severely decreased 15 - 29 mL/min/1.73m2 Kidney Failure < 15 mL/min/1.73m2 *Relative to young adult level Estimated glomerular filtration rate is determined by the 2020 CKD-EPI equation recommended by the National Kidney Foundation (A Unifying Approach to GFR Estimation: Recommendations of the NKF-ASK Task Force on Reassessing the Inclusion of Race in Diagnosing Kidney Disease, JASN 2020). The CKD-EPI equation should not be used for patients with unstable renal function and has not been validated in children and those over 70. Current interpretive data was last reviewed 2021. Blood 01/16/2024 10:4 3 PM CDT 01/16/2024 11:31 PM CDT us Roman Garcia MD PhD LAB BLOOD ORDERABLES Fi nal Result [facility] [address] Department [place] [address] * (ABNORMAL) Lipid panel (01/12/2024 5:02 AM CDT) Cholesterol 135 30 - 199 mg/dL Comment: Interpretive Data Ages < or = 19 years Acceptable: <170 mg/dL Borderline high: 170-199 mg/dL High: >or= 200 mg/dL Ages > or = 20 years Desirable: <200 mg/dL Borderline high: 200-239 mg/dL High: >or= 240 mg/dL Literature References: 1. Expert Panel on Integrated Guidelines for Cardiovascular Health and Risk Reduction in Children and Adolescents. Pediatrics 2011;128:S213 2. NCEP Expert Panel. Circulation 2004;110:227 Current Interpretive Data was last revised on 2018. Triglycerides 65 <=149 mg/dL [facility] Comment: Interpretive Data Ages < or = 9 years Acceptable: <75 mg/dL Borderline high: 75-99 mg/dL High: >or= 100 mg/dL Ages 10 to 20 years Acceptable: <90 mg/dL Borderline high: 90-129 mg/dL High: >or= 130 mg/dL Ages > or = 20 years Desirable: <150 mg/dL Borderline high: 150-199 mg/dL High: 200-499 mg/dL Very high: >or= 499 mg/dL Literature References: 1. Expert Panel on Integrated Guidelines for Cardiovascular Health and Risk Reduction in Children and Adolescents. Pediatrics 2011;128:S213 2. NCEP Expert Panel. Circulation 2004;110:227 Current Interpretive Data was last revised on 2018. HDL 38(L) >=40 mg/dL [facility] Comment: Interpretive Data Ages < or = 19 years Acceptable: >45 mg/dL Borderline low: 40-45 mg/dL Low: <40 mg/dL Ages > or = 20 years Desirable: >or= 60 mg/dL Low: <40 mg/dL Literature References: 1. Expert Panel on Integrated Guidelines for Cardiovascular Health and Risk Reduction in Children and Adolescents. Pediatrics 2011;128:S213 2. NCEP Expert Panel. Circulation 2004;110:227 Current Interpretive Data was last revised on 2018. LDL, calculated 84 <=129 mg/dL [facility] Comment: Interpretive Data Ages < or = 19 years Acceptable: <110 mg/dL Borderline high: 110-129 mg/dL High: >or= 130 mg/dL Ages > or = 20 years Optimal: <100 mg/dL Near optimal: 100-129 mg/dL Borderline high: 130-159 mg/dL High: >160 mg/dL Literature References: 1. Expert Panel on Integrated Guidelines for Cardiovascular Health and Risk Reduction in Children and Adolescents. Pediatrics 2011;128:S213 2. NCEP Expert Panel. Circulation 2004;110:227 Current Interpretive Data was last revised on 2018. Non-HDL Cholesterol 97 mg/dL [facility] Comment: Interpretive Data Ages < or = 19 years Acceptable: <120 mg/dL Borderline high: 120-144 mg/dL High: >145 mg/dL Ages > or = 20 years When triglycerides are >200 mg/dL, Non-HDL cholesterol is a secondary target of therapy with treatment goals that are 30 mg/dL greater than the LDL cholesterol target. Literature References: 1. Expert Panel on Integrated Guidelines for Cardiovascular Health and Risk Reduction in Children and Adolescents. Pediatrics 2011;128:S213 2. NCEP Expert Panel. Circulation 2004;110:227 Current Interpretive Data was last revised on 2018. Chol/HDL ratio 4 [facility] Blood 01/12/2024 5:02 AM CDT 01/12/2024 5:38 AM CDT us Karen Lopez MD LAB BLOOD ORDERABLES F inal Result [facility] [address] Department [place] [address] * Hepatitis C antibody Blood (08/20/2023 8:41 PM POWERHOUSE ATTENDANT) Hep C Ab Nonreactive Nonreactive [facility] Comment:Antibodies to HCV no t detected. Does NOT exclude the possibility of recent exposure to HCV. Current interpretive data was last revised on 22 Blood 08/20/2023 8:41 PM POWERHOUSE ATTENDANT 08/20/2023 9:26 PM POWERHOUSE ATTENDANT Johnnie Bonilla MD LAB MICROBIOLOGY - GENERAL O RDERABLES Final Result [facility] [address] [facility] Department [place] [address] * Albumin Creatinine Ratio, Urine (04/26/2023 9:46 AM CDT) Albumin Ur <12.0 mg/L Comment: Interpretive Data No reference range established. Current interpretive data was last revised 2018. Creatinine Ur 45.7 mg/dL [facility] Comment: Interpretive Data No reference range established. Current interpretive data was last revised 2018. Albumin Creatinine Ratio, Ur <26 1 - 29 mg/g [facility] Urine 04/26/2023 9:46 AM CDT 04/26/2023 6:20 PM CDT us Ricarda Myers NP LAB URINE ORDERABLES Lindsey molina Result [facility] [address] Department [place] [address] from Last 3 Months or Most Recently Relevant to Health Maintenance Insurance [facility] MEDICARE [place] [address] [place] [address] MEDICARE HMO IDPA Advance Directives For more information, please contact: [phone] Documents on File Type Date Recorded Patient Information Systems Director Expl anation ADVANCE DIRECTIVE 11/02/2017 12:00 AM RICHI R OF [employer] LABORATORY MANAGER FINANCIAL/MEDICAL * Full Code (Latest Code Status on File) Date Activated Date Inactivated Comments 01/17/2024 4:14 AM 01/17/2024 8:25 PM * Full Code Date Activated Date Inactivated Comments 01/14/2024 6:34 PM 01/15/2024 9:41 PM * Full Code Date Activated Date Inactivated Comments 01/11/2024 3:56 PM 01/14/2024 6:34 PM * Full Code Date Activated Date Inactivated Comments 08/20/2023 6:02 AM 08/26/2023 9:32 PM * LIMITED - No CPR Date Activated Date Inactivated Comments 02/09/2020 12:32 AM 02/12/2020 9:26 PM Question Answer Comments Provide aggressive medical m anagement before a full cardiopulmonary arrest occurs. Use antibiotics, IV Fluids, and medical treatment unless specifically selected below: No intubationNo cardioversion Care Teams Oil Gas And Pipe Tester Relationship Specialty Start Date End Date Azar Mccann MD [address] [place] [address] PCP - General Family Medicine 05/31/23 Braulio Alexandre DO [address] [place], [place] [id number] Pain Management 03/18/23 Cedric Spence MD [address], [place] [id number] Consulting Physician Interventional Cardiology 03/18/23 [place] [address] [place] [address] Consulting Physician Endocrinology Diabetes & Metabolism 03/18/23 Osman Pantoja MD [address] [place] [address] Referring Physician Emergency Medicine 04/22/23 Ruel Villa MD [address] [place] [address] Consulting Physician Clinical Cardiac Electrophysiology 01/15/24
--- OUTSIDE RECORDS SUMMARY | 2024-08-25 01:27 | XMS_ITS | Clinical Summary ---
Author Organization [facility] Address [address] [place] [address] Care Team Providers Care Loader Unloader Name Role Phone Valdo Wu Primary Care Provider [phone] Source Comments [facility],non-owned Affiliates and Associated Physician Practices is amultiple site organization consisting of ambulatory clinics and hospital sitesin [place], [place], [place] and [place]. This disclosure is being madepursuant to the Care Everywhere program and may not contain all information available regarding this patient. 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 Other specified diseases of liver 09/29/2014 Pneumonitis due to inhalation of food and vomit 09/29/2014 Essential (primary) hypertension 09/27/2014 Altered mental status 09/27/2014 Obstructive sleep apnea 09/27/2014 Acute respiratory distress syndrome 09/22/2014 Chronic obstructive pulmonary disease 09/22/2014 Anxiety disorder 09/22/2014 Family History Medical History Relation Name Comments Heart Disease Brother 1 Status: Alive Diabetes Brother 2 Status: Alive Cancer Father Status: Alive Heart Disease Father Relation Name Status Comments Brother 1 Brother 2 Father Social History Tobacco Use Types Packs/Day Years [...] Comments Blood Pressure 111/65 07/04/2018 11:56 AM CONSUMER ANALYST Pulse 96 07/04/2018 11:56 AM CONSUMER ANALYST Temperature 37 C (98.6 F) 07/04/2018 11:56 AM CONSUMER ANALYST Respiratory Rate 20 07/04/2018 11:56 AM CONSUMER ANALYST Oxygen Saturation 93% 07/04/2018 11:56 AM CONSUMER ANALYST Inhaled Oxygen Concentration - - Weight 88.5 kg (195 lb) 06/30/2018 4:09 PM CONSUMER ANALYST Height 177.8 cm (5' 10 ) 06/30/2018 4:09 PM CONSUMER ANALYST Body Mass Index 27.98 06/30/2018 4:09 PM CONSUMER ANALYST Plan of Treatment Health Maintenance Due Date Last Done Comments COLOGUARD (AGES 45-75) - COL ON CA SCREENING 1959 COLON MONITORING 1959 COLONOSCOPY - COLON CA SCREENING 1959 CT COLONOGRAPHY - COLON CA SCREENING 1959 Colorectal Cancer Screening 1959 FIT - COLON CA SCREENING 1959 FLEX SIG - COLON CA SCREENING 1959 MEDICARE AWV 12 MONTHS 1959 HIV SCREENING 1974 HEPATITIS C SCREENING 08/05/1977 DTAP/TDAP/TD VACCINES (1 - Tdap) 1978 PNEUMOCOCCAL VACCINE 50+ (1 of 2 - PCV) 1978 PNEUMOCOCCAL VACCINE (1 of 2 - PCV) 1978 ZOSTER VACCINE (1 of 2) 2009 Respiratory Syncytial Virus (RSV) Vaccine Pt: or over 60 yrs (1 - Risk 60-74 years 1-dose series) 2019 COVID-19 VACCINE (2023-2 5 season) 2024 INFLUENZA VACCINE (#1) 2024 DEPRESSION SCREENING 07/12/2024 AAA SCREENING 2024 HEPATITIS B VACCINE Aged Out No longe r eligible based on patient's age to complete this topic HIB VACCINE Aged Out No longer eligi ble based on patient's age to complete this topic HPV VACCINE Aged Out No longer eligi ble based on patient's age to complete this topic MENINGOCOCCAL (Group B) VACCINE Aged Out No longer eligible based on patient's age to complete this topic MENINGOCOCCAL VACCINE Aged Out No shantel isabel eligible based on patient's age to complete this topic Advance Directives Documents on File Type Date Recorded Patient Contour Band Saw Operator Vertical Expl anation Adv Directive/Living Will/POA 06/13/2018 5:46 [...] 9:26 PM 06/06/2018 6:24 PM Care Teams Loader Unloader Relationship Specialty Start Date End Date Valdo Wu DO [address] [place] [address] PCP - General 02/16/22
--- OUTSIDE RECORDS SUMMARY | 2024-08-25 01:27 | XMS_ITS | Patient Health Summary ---
Author Organization [facility] [place] Address [address] [place] [address] Care Team Providers Care Learning Support Teacher Name Role Phone Valdo Wu Primary Care Provider [phone] Note from [facility],non-owned Affiliates and Associated Physician Practices is amultiple site organization consisting of ambulatory clinics and hospital sitesin [place], [place], [place] and [place]. This disclosure is being madepursuant to the Care Everywhere program and may not contain all information available regarding this patient. Last updated 18.[facility] Allergies * Contrast-Iodinated Agents For Ct/Other(Nausea and/or Vomiting) -Low Criticality * Morphine(Itching) -Low Criticality * Morphine(Urticaria) -Medium Criticality Medications * Be aware that medications may not be up to date on this document. Alwaysverify current medications with the patient. * metFORMIN (GLUCOPHAGE) 500 MG tablet Take 500 mg by mouth 2 times daily with morning and evening meal * aspirin EC (ECOTRIN) 81 MG tablet Take 81 mg by mouth once daily * atorvastatin (LIPITOR) 40 MG tablet(Started 06/09/2018) Take 1 tablet by mouth at bedtime 3 refills remaining * metoprolol succinate XL 24hr (TOPROL XL) 50 MG tablet(Started 06/09/2018) Take 3 tablets by mouth 2 times daily 3 refills remaining * melatonin 3 MG tablet(Started 06/09/2018) Take 1 tablet by mouth at bedtime * ALPRAZolam (XANAX) 0.5 MG tablet Take 0.5 mg by mouth 4 times daily * digoxin (LANOXIN) 0.125 MG tablet Take 0.25 mg by mouth once daily * potassium chloride (KLOR-CON) 20 MEQ packet Take 20 mEq by mouth once daily * warfarin (COUMADIN) 5 MG tablet Take 5 mg by mouth daily at 5 PM * albuterol HFA (PROVENTIL;VENTOLIN;PROAIR) 108 (90 BASE) MCG/ACT inhaler Inhale 2 puffs by mouth every 4 hours as needed for Shortness of Breath * HYDROcodone-acetaminophen (NORCO) 7.5-325 MG tablet Take 1 tablet by mouth every 6 hours * insulin lispro (HUMALOG) 100 UNIT/ML vial Inject 0-8 Units subcutaneously 2 times daily BID at 0730 and 1930 Sliding Scale Instructions: 0-150 = 0 units 151-200 = 1 unit 201-250 = 2 units 251-300 = 4 units 301-350 = 6 units 351-400 = 8 units 401+ = contact MD * escitalopram (LEXAPRO) 5 MG tablet(Started 07/04/2018) Take 1 tablet by mouth at bedtime * methIMAzole (TAPAZOLE) 10 MG tablet(Started 07/05/2018) Take 2 tablets by mouth once daily Active Problems Problem Noted Date Diagnosed Date Hyperthyroidism 07/03/2018 Dysarthria 07/01/2018 Cerebrovascular accident (CVA) 06/05/2018 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 Atrial septal defect 02/08/2015 Persistent atrial fibrillation 02/08/2015 Atherosclerotic heart diseas e of [place] coronary artery without angina pectoris 01/10/2015 Other specified postprocedural states 09/29/2014 Acute respiratory failure with hypoxia 5 Acute respiratory failure with hypercapnia 09/29 Poisoning by unspecified claudio cotics, accidental (unintentional), sequela 09/29/2014 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 5 Chronic systolic [...] Comments Blood Pressure 111/65 07/04/2018 11:56 AM STORE RECEIVING SPECIALIST Pulse 96 07/04/2018 11:56 AM STORE RECEIVING SPECIALIST Temperature 37 C (98.6 F) 07/04/2018 11:56 AM STORE RECEIVING SPECIALIST Respiratory Rate 20 07/04/2018 11:56 AM STORE RECEIVING SPECIALIST Oxygen Saturation 93% 07/04/2018 11:56 AM STORE RECEIVING SPECIALIST Inhaled Oxygen Concentration - - Weight 88.5 kg (195 lb) 06/30/2018 4:09 PM STORE RECEIVING SPECIALIST Height 177.8 cm (5' 10 ) 06/30/2018 4:09 PM STORE RECEIVING SPECIALIST Body Mass Index 27.98 06/30/2018 4:09 PM STORE RECEIVING SPECIALIST Procedures * CARDIAC EKG ORDER(Performed 07/21/2018) * CARDIAC EKG ORDER(Performed 07/20/2018) * GLUCOSE - POINT OF CARE(Performed 07/04/2018) * GLUCOSE - POINT OF CARE(Performed 07/04/2018) * GLUCOSE - POINT OF CARE(Performed 07/04/2018) * PT-INR [facility](Performed 07/04/2018) Performed for Persistent atrial fibrillation (HCC) * RENAL FUNCTION PANEL(Performed 07/04/2018) Performed for Persistent atrial fibrillation (HCC) * CBC W/O DIFFERENTIAL(Performed 07/04/2018) Performed for Persistent atrial fibrillation (HCC) * GLUCOSE - POINT OF CARE(Performed 07/03/2018) * GLUCOSE - POINT OF CARE(Performed 07/03/2018) * GLUCOSE - POINT OF CARE(Performed 07/03/2018) * GLUCOSE - POINT OF CARE(Performed 07/03/2018) * MAGNESIUM BLOOD(Performed 07/03/2018) Performed for Chronic atrial fibrillation (HCC) * PT-INR [facility](Performed 07/03/2018) Performed for Chronic atrial fibrillation (HCC) * RENAL FUNCTION PANEL(Performed 07/03/2018) Performed for Dysarthria * GLUCOSE - POINT OF CARE(Performed 07/03/2018) * GLUCOSE - POINT OF CARE(Performed 07/02/2018) * GLUCOSE - POINT OF CARE(Performed 07/02/2018) * T3 FREE(Performed 07/02/2018) Performed for Chronic atrial fibrillation (HCC) * MAGNESIUM BLOOD(Performed 07/02/2018) Performed for Chronic atrial fibrillation (HCC) * RENAL FUNCTION PANEL(Performed 07/02/2018) Performed for Chronic atrial fibrillation (HCC) * PT-INR [facility](Performed 07/02/2018) Performed for Chronic atrial fibrillation (HCC) * PT EVAL AND TREAT(Performed 07/02/2018) * OT EVAL AND TREAT(Performed 07/02/2018) * GLUCOSE - POINT OF CARE(Performed 07/02/2018) * GLUCOSE - POINT OF CARE(Performed 07/02/2018) * T4 FREE(Performed 07/02/2018) Performed for Dysarthria * LACTIC ACID BLOOD(Performed 07/02/2018) Performed for Dysarthria * TSH(Performed 07/02/2018) Performed for Dysarthria * THYROID STIMULATING IMMUNOGLOBULIN (TSI)(Performed 07/02/2018) Performed for Hyperthyroidism * GLUCOSE - POINT OF CARE(Performed 07/01/2018) * GLUCOSE - POINT OF CARE(Performed 07/01/2018) * GLUCOSE - POINT OF CARE(Performed 07/01/2018) * T4 FREE(Performed 07/01/2018) Performed for Dysarthria * GLUCOSE - POINT OF CARE(Performed 07/01/2018) * URINALYSIS W/MICROSCOPIC NO CULTURE(Performed 07/01/2018) * CT HEAD WO CONTRAST(Performed 07/01/2018) Performed for Dysarthria * PT-INR [facility](Performed 06/30/2018) * URINE DRUG SCREEN IMMUNOASSAY(Performed 06/30/2018) * ALCOHOL ETHYL BLOOD(Performed 06/30/2018) * COMPREHENSIVE METABOLIC PANEL(Performed 06/30/2018) * CBC W AUTO DIFFERENTIAL(Performed 06/30/2018) * T3 FREE(Performed 06/09/2018) * T4 FREE(Performed 06/09/2018) * TSH(Performed 06/09/2018) * PT-INR [facility](Performed 06/09/2018) * CBC W/O DIFFERENTIAL(Performed 06/09/2018) * BASIC METABOLIC PANEL (CALCIUM TOTAL)(Performed 06/09/2018) * PT-INR [facility](Performed 06/08/2018) * PHOSPHORUS BLOOD(Performed 06/08/2018) * MAGNESIUM BLOOD(Performed 06/08/2018) * CBC W/O DIFFERENTIAL(Performed 06/08/2018) * BASIC METABOLIC PANEL (CALCIUM TOTAL)(Performed 06/08/2018) * EKG 12-LEAD(Performed 06/07/2018) Performed for Persistent atrial fibrillation (HCC) * GLUCOSE - POINT OF CARE(Performed 06/07/2018) * PT-INR [facility](Performed 06/07/2018) * GLUCOSE - POINT OF CARE(Performed 06/07/2018) * GLUCOSE - POINT OF CARE(Performed 06/07/2018) * MRI BRAIN WO CONTRAST(Performed 06/07/2018) Performed for Cerebrovascular accident (CVA), unspecified mechanism (HCC) * PT-INR [facility](Performed 06/07/2018) * PHOSPHORUS BLOOD(Performed 06/07/2018) * MAGNESIUM BLOOD(Performed 06/07/2018) * CBC W/O DIFFERENTIAL(Performed 06/07/2018) * BASIC METABOLIC PANEL (CALCIUM TOTAL)(Performed 06/07/2018) * TROPONIN I(Performed 06/06/2018) * ECHO COMPLETE W BUBBLE STUDY(Performed 06/06/2018) Performed for Cerebrovascular accident (CVA), unspecified mechanism (HCC) * TROPONIN I(Performed 06/06/2018) * HEMOGLOBIN A1C(Performed 06/06/2018) * PT-INR [facility](Performed 06/06/2018) * PHOSPHORUS BLOOD(Performed 06/06/2018) * MAGNESIUM BLOOD(Performed 06/06/2018) * CBC W/O DIFFERENTIAL(Performed 06/06/2018) * BASIC METABOLIC PANEL (CALCIUM TOTAL)(Performed 06/06/2018) * EKG 12-LEAD(Performed 06/06/2018) Performed for Cerebrovascular accident (CVA), unspecified mechanism (HCC) * TROPONIN I(Performed 06/06/2018) * PT EVAL AND TREAT(Performed 06/05/2018) * OT EVAL AND TREAT(Performed 06/05/2018) * URINALYSIS REFLEX TO MICROSCOPIC NO CULTURE(Performed 06/05/2018) * URINE DRUG SCREEN IMMUNOASSAY(Performed 06/05/2018) * XR CHEST 1VW PORTABLE(Performed 06/05/2018) Performed for Cerebrovascular accident (CVA), unspecified mechanism (HCC) * TYPE + SCREEN PANEL(Performed 06/05/2018) * BILIRUBIN DIRECT(Performed 06/05/2018) * LIPID PROFILE(Performed 06/05/2018) * ALCOHOL ETHYL BLOOD(Performed 06/05/2018) * TROPONIN I(Performed 06/05/2018) * PT-INR [facility](Performed 06/05/2018) * COMPREHENSIVE METABOLIC PANEL(Performed 06/05/2018) * CBC W AUTO DIFFERENTIAL(Performed 06/05/2018) * GLUCOSE - POINT OF CARE(Performed 06/05/2018) * EKG 12-LEAD(Performed 06/05/2018) Performed for Cerebrovascular accident (CVA), unspecified mechanism (HCC) * CT ANGIO BRAIN NECK STROKE(Performed 06/05/2018) Performed for Cerebrovascular accident (CVA), unspecified mechanism (HCC) * CREATININE BLOOD - POCT (IP) [facility](Performed 06/05/2018) Performed for Cerebrovascular accident (CVA), unspecified mechanism (HCC) * CT BRAIN STROKE(Performed 06/05/2018) Performed for Cerebrovascular accident (CVA), unspecified mechanism (HCC) * PULSE OXIMETRY, CONTINUOUS(Performed 06/05/2018) * MRI ABDOMEN WWO CONTRAST(Performed 09/02/2016) * CREATININE BLOOD - POCT (IP) [facility](Performed 09/02/2016) * MRI ABDOMEN WWO CONTRAST(Performed 04/16/2016) * CREATININE BLOOD - POCT (IP) [facility](Performed 04/16/2016) * CANCER ANTIGEN (CA) 19-9(Performed 03/04/2016) * COMPREHENSIVE METABOLIC PANEL(Performed 03/04/2016) * CBC W AUTO DIFFERENTIAL(Performed 03/04/2016) * ALPHA FETOPROTEIN BLOOD TUMOR MARKER(Performed 03/04/2016) * CBC W AUTO DIFFERENTIAL(Performed 03/04/2016) * CEA BLOOD(Performed 03/04/2016) * EKG 12-LEAD(Performed 02/08/2015) * EKG 12-LEAD(Performed 01/10/2015) * BASIC METABOLIC PANEL (CALCIUM TOTAL)(Performed 12/28/2014) * PT-INR [facility](Performed 12/28/2014) * CBC W AUTO DIFFERENTIAL(Performed 12/28/2014) * CBC W AUTO DIFFERENTIAL(Performed 12/28/2014) * TROPONIN I(Performed 12/28/2014) * CK + CKMB PANEL(Performed 12/28/2014) * ECHO MECHE W CARDIOVERSION(Performed 12/28/2014) * PT-INR [facility](Performed 12/27/2014) * XR CHEST 2VW(Performed 12/27/2014) * B-TYPE NATRIURETIC PEPTIDE(Performed 12/27/2014) * DIGOXIN LEVEL(Performed 12/27/2014) * COMPREHENSIVE METABOLIC PANEL(Performed 12/27/2014) * TROPONIN I(Performed 12/27/2014) * CK + CKMB PANEL(Performed 12/27/2014) * CBC W AUTO DIFFERENTIAL(Performed 12/27/2014) * CBC W AUTO DIFFERENTIAL(Performed 12/27/2014) * DIGOXIN LEVEL(Performed 10/02/2014) * PHOSPHORUS BLOOD(Performed 10/02/2014) * MAGNESIUM BLOOD(Performed 10/02/2014) * COMPREHENSIVE METABOLIC PANEL(Performed 10/02/2014) * PT-INR [facility](Performed 10/02/2014) * CBC W AUTO DIFFERENTIAL(Performed 10/02/2014) * CBC W AUTO DIFFERENTIAL(Performed 10/02/2014) * ECHO MECHE W CARDIOVERSION(Performed 10/02/2014) * COMPREHENSIVE METABOLIC PANEL(Performed 10/01/2014) * PHOSPHORUS BLOOD(Performed 10/01/2014) * MAGNESIUM BLOOD(Performed 10/01/2014) * PT-INR [facility](Performed 10/01/2014) * CBC W AUTO DIFFERENTIAL(Performed 10/01/2014) * CBC W AUTO DIFFERENTIAL(Performed 10/01/2014) * PHOSPHORUS BLOOD(Performed 09/30/2014) * MAGNESIUM BLOOD(Performed 09/30/2014) * COMPREHENSIVE METABOLIC PANEL(Performed 09/30/2014) * PT-INR [facility](Performed 09/30/2014) * CBC W AUTO DIFFERENTIAL(Performed 09/30/2014) * CBC W AUTO DIFFERENTIAL(Performed 09/30/2014) * BASIC METABOLIC PANEL (CALCIUM TOTAL)(Performed 09/29/2014) * PHOSPHORUS BLOOD(Performed 09/29/2014) * MAGNESIUM BLOOD(Performed 09/29/2014) * COMPREHENSIVE METABOLIC PANEL(Performed 09/29/2014) * PT-INR [facility](Performed 09/29/2014) * CBC W AUTO DIFFERENTIAL(Performed 09/29/2014) * CBC W AUTO DIFFERENTIAL(Performed 09/29/2014) * EKG 12-LEAD(Performed 09/29/2014) * VAS BILATERAL VENOUS DUPLEX LE(Performed 09/28/2014) * PHOSPHORUS BLOOD(Performed 09/28/2014) * MAGNESIUM BLOOD(Performed 09/28/2014) * COMPREHENSIVE METABOLIC PANEL(Performed 09/28/2014) * PT-INR [facility](Performed 09/28/2014) * CBC W AUTO DIFFERENTIAL(Performed 09/28/2014) * CBC W AUTO DIFFERENTIAL(Performed 09/28/2014) * VANCOMYCIN LEVEL TROUGH(Performed 09/27/2014) * COMPREHENSIVE METABOLIC PANEL(Performed 09/27/2014) * PHOSPHORUS BLOOD(Performed 09/27/2014) * MAGNESIUM BLOOD(Performed 09/27/2014) * PT-INR [facility](Performed 09/27/2014) * CBC W AUTO DIFFERENTIAL(Performed 09/27/2014) * CBC W AUTO DIFFERENTIAL(Performed 09/27/2014) * DIGOXIN LEVEL(Performed 09/26/2014) * VANCOMYCIN LEVEL TROUGH(Performed 09/26/2014) * BLOOD GASES ARTERIAL(Performed 09/26/2014) * GLUCOSE ACCUCHECK(Performed 09/26/2014) * COMPREHENSIVE METABOLIC PANEL(Performed 09/26/2014) * GLUCOSE ACCUCHECK(Performed 09/26/2014) * MAGNESIUM BLOOD(Performed 09/26/2014) * PHOSPHORUS BLOOD(Performed 09/26/2014) * PT-INR [facility](Performed 09/26/2014) * CBC W AUTO DIFFERENTIAL(Performed 09/26/2014) * CBC W AUTO DIFFERENTIAL(Performed 09/26/2014) * GLUCOSE ACCUCHECK(Performed 09/25/2014) * GLUCOSE ACCUCHECK(Performed 09/25/2014) * BLOOD GASES ARTERIAL(Performed 09/25/2014) * GLUCOSE ACCUCHECK(Performed 09/25/2014) * PHOSPHORUS BLOOD(Performed 09/25/2014) * MAGNESIUM BLOOD(Performed 09/25/2014) * BASIC METABOLIC PANEL (CALCIUM TOTAL)(Performed 09/25/2014) * PT-INR [facility](Performed 09/25/2014) * CBC W AUTO DIFFERENTIAL(Performed 09/25/2014) * CBC W AUTO DIFFERENTIAL(Performed 09/25/2014) * BLOOD GASES ARTERIAL(Performed 09/25/2014) * BLOOD GASES ARTERIAL(Performed 09/24/2014) * GLUCOSE ACCUCHECK(Performed 09/24/2014) * BASIC METABOLIC PANEL (CALCIUM TOTAL)(Performed 09/24/2014) * BLOOD GASES ARTERIAL(Performed 09/24/2014) * CBC W/O DIFFERENTIAL(Performed 09/24/2014) * LACTIC ACID BLOOD(Performed 09/24/2014) * BASIC METABOLIC PANEL (CALCIUM TOTAL)(Performed 09/24/2014) * HEMOGLOBIN(Performed 09/24/2014) * BLOOD GASES ARTERIAL(Performed 09/24/2014) * GLUCOSE ACCUCHECK(Performed 09/24/2014) * XR CHEST 1VW PORTABLE(Performed 09/24/2014) * URINALYSIS W/MICROSCOPIC NO CULTURE(Performed 09/24/2014) * BLOOD GASES ARTERIAL(Performed 09/24/2014) * MAGNESIUM BLOOD(Performed 09/24/2014) * PT-INR [facility](Performed 09/24/2014) * BASIC METABOLIC PANEL (CALCIUM TOTAL)(Performed 09/24/2014) * PHOSPHORUS BLOOD(Performed 09/24/2014) * CBC W AUTO DIFFERENTIAL(Performed 09/24/2014) * CBC W AUTO DIFFERENTIAL(Performed 09/24/2014) * BLOOD GASES ARTERIAL(Performed 09/24/2014) * GLUCOSE ACCUCHECK(Performed 09/24/2014) * BLOOD GASES ARTERIAL(Performed 09/23/2014) * GLUCOSE ACCUCHECK(Performed 09/23/2014) * BASIC METABOLIC PANEL (CALCIUM TOTAL)(Performed 09/23/2014) * BLOOD GASES ARTERIAL(Performed 09/23/2014) * XR CHEST 1VW PORTABLE(Performed 09/23/2014) * BLOOD GASES ARTERIAL(Performed 09/23/2014) * GLUCOSE ACCUCHECK(Performed 09/23/2014) * FIBRIN MONOMER(Performed 09/23/2014) * D-DIMER(Performed 09/23/2014) * FIBRINOGEN ACTIVITY(Performed 09/23/2014) * PTT [facility](Performed 09/23/2014) * HAPTOGLOBIN(Performed 09/23/2014) * LDH BLOOD(Performed 09/23/2014) * XR ABDOMEN KUB PORTABLE(Performed 09/23/2014) * CULTURE BLOOD(Performed 09/23/2014) * CULTURE BLOOD(Performed 09/23/2014) * GLUCOSE ACCUCHECK(Performed 09/23/2014) * CBC W AUTO DIFFERENTIAL(Performed 09/23/2014) * DIFFERENTIAL MANUAL(Performed 09/23/2014) * CBC W AUTO DIFFERENTIAL(Performed 09/23/2014) * PHOSPHORUS BLOOD(Performed 09/23/2014) * MAGNESIUM BLOOD(Performed 09/23/2014) * BASIC METABOLIC PANEL (CALCIUM TOTAL)(Performed 09/23/2014) * PT-INR [facility](Performed 09/23/2014) * BLOOD GASES ARTERIAL(Performed 09/23/2014) * ECHO COMPLETE(Performed 09/23/2014) * EKG 12-LEAD(Performed 09/23/2014) * EKG 12-LEAD(Performed 09/23/2014) * TROPONIN I(Performed 09/22/2014) * CK + CKMB PANEL(Performed 09/22/2014) * B-TYPE NATRIURETIC PEPTIDE(Performed 09/22/2014) * BASIC METABOLIC PANEL (CALCIUM TOTAL)(Performed 09/22/2014) * LEGIONELLA ANTIGEN URINE(Performed 09/22/2014) * STREP PNEUMONIAE ANTIGEN BLOOD/CSF(Performed 09/22/2014) * CULTURE SPUTUM+GRAM STAIN(Performed 09/22/2014) * XR CHEST 1VW PORTABLE(Performed 09/22/2014) * TYPE + SCREEN PANEL(Performed 09/22/2014) * T4 FREE(Performed 09/22/2014) * BLOOD GASES ARTERIAL(Performed 09/22/2014) * TSH(Performed 09/22/2014) * DIGOXIN LEVEL(Performed 09/22/2014) * TROPONIN I(Performed 09/22/2014) * CK + CKMB PANEL(Performed 09/22/2014) * ALCOHOL ETHYL BLOOD(Performed 09/22/2014) * COMPREHENSIVE METABOLIC PANEL(Performed 09/22/2014) * CULTURE BLOOD(Performed 09/22/2014) * CT HEAD WO CONTRAST(Performed 09/22/2014) * CT ANGIO CHEST PULM EMBOLISM(Performed 09/22/2014) * CREATININE BLOOD - POCT (IP) [facility](Performed 09/22/2014) * XR CHEST 1VW PORTABLE(Performed 09/22/2014) * LACTIC ACID WHOLE BLOOD(Performed 09/22/2014) * GLUCOSE ACCUCHECK(Performed 09/22/2014) * CULTURE BLOOD(Performed 09/22/2014) * GLUCOSE - POINT OF CARE (AMB) [facility](Performed 09/22/2014) * GLUCOSE - POINT OF CARE (AMB) [facility](Performed 09/22/2014) * PHOSPHORUS BLOOD(Performed 09/22/2014) * MAGNESIUM BLOOD(Performed 09/22/2014) * SALICYLATE LEVEL BLOOD(Performed 09/22/2014) * ACETAMINOPHEN LEVEL(Performed 09/22/2014) * DRUG ABUSE PANEL 10-20+ETHANOL URINE NO CONFIRM(Performed 09/22/2014) * PT-INR [facility](Performed 09/22/2014) * PTT [facility](Performed 09/22/2014) * BLOOD GASES ARTERIAL(Performed 09/22/2014) * URINALYSIS W/MICROSCOPIC NO CULTURE(Performed 09/22/2014) * CBC W/O DIFFERENTIAL(Performed 09/22/2014) * CULTURE URINE(Performed 09/22/2014) * EKG 12-LEAD(Performed 09/22/2014) * EKG 12-LEAD(Performed 09/22/2014) Results * CARDIAC EKG ORDER (07/21/2018 3:43 PM STORE RECEIVING SPECIALIST) Only the most recent of2 resultswithin the time period is included. Narrative 07/21/2018 3:43 PM STORE RECEIVING SPECIALIST Ordered by an unspecified provider. Scanned Document CARDIAC SERVICES ORD ERABLES * GLUCOSE - POINT OF CARE (07/04/2018 12:06 PM STORE RECEIVING SPECIALIST) Only the most recent of20 resultswithin the time period is included. Glucose WB/POC 112 70 - 115 mg/dL 07/04/2018 12:11 PM [facility] Specimen Type Arterial/C apillary 07/04/2018 12:11 PM [facility] Blood BLOOD SPECIMEN / Unknown 07/04/2018 12:06 PM STORE RECEIVING SPECIALIST 07/04/2018 12:11 PM STORE RECEIVING SPECIALIST Narrative [facility] - 07/04/2018 12:11 PM STORE RECEIVING SPECIALIST Allopathic Doctor: ESTIVEN KENT Bee Rose MD LAB - POINT OF CARE ORDERABLES [address] [phone] * (ABNORMAL) PT-INR [facility] (07/04/2018 4:17 AM STORE RECEIVING SPECIALIST) Only the most recent of23 resultswithin the time period is included. PT 19.1(H) 12.1 - 14.8 Seconds 07/04/2018 4:40 AM [facility] INR 1.7 See Comment 07/04/2018 4:40 AM [facility] Comment: The suggested therapeutic range for standard coumadin (warfarin) therapy is an INR of 2.0-3.0. For high-risk patients (Mechanical Mitral Valve Prosthesis, etc.), the suggested prophylactic therapeutic range is an INR of 2.5-3.5. Blood BLOOD SPECIMEN / Unknown Lab Venipuncture / Unknown 07/04/2018 4:17 AM STORE RECEIVING SPECIALIST 07/04/2018 4:22 AM STORE RECEIVING SPECIALIST Bee Rose MD LAB - COAGULATION OR DERABLES [facility] [address] [phone] * (ABNORMAL) CBC W/O DIFFERENTIAL (07/04/2018 4:17 AM STORE RECEIVING SPECIALIST) Only the most recent of7 resultswithin the time period is included. WBC 7.6 3.5 - 10.5 10 3/uL 07/04/2018 4:26 AM [facility] RBC 3.84(L) 4.30 - 5.70 10 6/uL 07/04/2018 4:26 AM [facility] Hemoglobin 10.7(L) 13.5 - 17.5 g/dL 07/04/2018 4:26 AM [facility] Hematocrit 33.9(L) 39.0 - 50.0 % 07/04/2018 4:26 AM [facility] MCV 88.3 81.0 - 97.0 fL 07/04/2018 4:26 AM [facility] MCH 27.9(L) 28.0 - 34.0 pg 07/04/2018 4:26 AM [facility] MCHC 31.6(L) 32.0 - 36.0 g/dL 07/04/2018 4:26 AM [facility] Platelet Count 160 150 - 400 10 3/uL 07/04/2018 4:26 AM [facility] RDW-SD 45.3 36.0 - 50.0 fL 07/04/2018 4:26 AM [facility] RDW-CV 14.1 11.2 - 14.8 % 07/04/2018 4:26 AM [facility] MPV 10.1 9.3 - 12.8 fL 07/04/2018 4:26 AM [facility] nRBC Absolute 0.00 0 10 3/uL 07/04/2018 4:26 AM [facility] nRBC Auto 0.0 0 /100 WBC 07/04/2018 4:26 AM [facility] Blood BLOOD SPECIMEN / Unknown Lab Venipuncture / Unknown 07/04/2018 4:17 AM STORE RECEIVING SPECIALIST 07/04/2018 4:22 AM STORE RECEIVING SPECIALIST Bee Rose MD LAB - HEMATOLOGY ORD ERABLES [facility] [address] [phone] * (ABNORMAL) RENAL FUNCTION PANEL (07/04/2018 4:17 AM STORE RECEIVING SPECIALIST) Only the most recent of3 resultswithin the time period is included. BUN 12 7 - 26 mg/dL 07/04/2018 4:51 AM [facility] Creatinine 0.7 0.6 - 1.2 mg/dL 07/04/2018 4:51 AM [facility] Sodium 138 136 - 145 mmol/L 07/04/2018 4:51 AM [facility] Potassium 4.2 3.5 - 4.5 mmol/L 07/04/2018 4:51 AM [facility] Chloride 105 98 - 107 mmol/L 07/04/2018 4:51 AM [facility] CO2 26 22 - 29 mmol/L 07/04/2018 4:51 AM [facility] Glucose 101 70 - 115 mg/dL 07/04/2018 4:51 AM [facility] Albumin 2.8(L) 3.4 - 5.0 g/dL 07/04/2018 4:51 AM [facility] Calcium 9.1 8.4 - 10.2 mg/dL 07/04/2018 4:51 AM [facility] Phosphorus 3.6 2.3 - 4.7 mg/dL 07/04/2018 4:51 AM [facility] Anion Gap 11 8 - 18 07/04/2018 4:51 AM [facility] BUN/Creatinine Ratio 17 7 - 23 07/04/2018 4:51 AM [facility] Osmolality Calculated 286 270 - 300 mOsm/kg 07/04/2018 4:51 AM STORE RECEIVING SPECIALIST [facility] eGFR >60 >60 mL/min/1.7 3 m2 07/04/2018 4:51 AM [facility] Blood BLOOD SPECIMEN / Unknown Lab Venipuncture / Unknown 07/04/2018 4:17 AM STORE RECEIVING SPECIALIST 07/04/2018 4:22 AM STORE RECEIVING SPECIALIST Bee Rose MD LAB - CHEMISTRY [facility]ONTANE[facility] [address] [phone] * MAGNESIUM BLOOD (07/03/2018 4:53 AM STORE RECEIVING SPECIALIST) Only the most recent of16 resultswithin the time period is included. Magnesium 1.7 1.6 - 2.6 mg/dL 07/03/2018 5:57 AM [facility] Blood BLOOD SPECIMEN / Unknown Lab Venipuncture / Unknown 07/03/2018 4:53 AM STORE RECEIVING SPECIALIST 07/03/2018 5:27 AM STORE RECEIVING SPECIALIST Bee Rose MD LAB - CHEMISTRY [facility]AL[facility] FONTANEZ Performing Organization Address [facility]/ZIP Co de Phone Number [address] [phone] * (ABNORMAL) T3 FREE (07/02/2018 2:23 PM STORE RECEIVING SPECIALIST) Only the most recent of2 resultswithin the time period is included. T3 Free 7.6(H) 1.7 - 3.7 pg/mL 07/02/2018 3:06 PM STORE RECEIVING SPECIALIST [facility] Blood BLOOD SPECIMEN / Unknown Lab Venipuncture / Unknown 07/02/2018 2:23 PM STORE RECEIVING SPECIALIST 07/02/2018 2:23 PM STORE RECEIVING SPECIALIST Bee Rose MD LAB - CHEMISTRY [facility]AL[facility] FONTANEZ Performing Organization Address City/[facility]/ZIP Co de Phone Number [address] [phone] * (ABNORMAL) THYROID STIMULATING IMMUNOGLOBULIN (TSI) (07/02/2018 3:18 AM STORE RECEIVING SPECIALIST) [facility] [address] Thyroid Stimulating Immunoglobulin 12.30(H) 0.00 - 0.55 IU/L 07/05/2018 7:05 PM [facility] ([facility]) Blood BLOOD SPECIMEN / Unknown Lab Venipuncture / Unknown 07/02/2018 3:18 AM STORE RECEIVING SPECIALIST 07/02/2018 3:24 AM STORE RECEIVING SPECIALIST Narrative [facility] ([facility]) - 07/05/2018 7:05 PM STORE RECEIVING SPECIALIST Performed at: 01 - [address] [id number] Strategic Planning Analyst: Jesus Kruger MD, Phone: [phone] Michael Garrido MD LAB - CHEMISTRY [facility]AL[facility] FONTANEZ [facility] ([facility]) [address] [place] [address] * LACTIC ACID BLOOD (07/02/2018 3:18 AM STORE RECEIVING SPECIALIST) Only the most recent of2 resultswithin the time period is included. [facility] [address] Lactic Acid-Stat 1.5 0.5 - 2.2 mmol/L 07/02/2018 3:37 AM [facility] Blood BLOOD SPECIMEN / Unknown Lab Venipuncture / Unknown 07/02/2018 3:18 AM STORE RECEIVING SPECIALIST 07/02/2018 3:24 AM STORE RECEIVING SPECIALIST Bee Rose MD LAB - CHEMISTRY [facility]AL[facility] FONTANEZ [address] [phone] * (ABNORMAL) TSH (07/02/2018 3:18 AM STORE RECEIVING SPECIALIST) Only the most recent of3 resultswithin the time period is included. [facility] [address] TSH <0.004(L) 0.350 - 4.940 uIU/mL 07/02/2018 4:02 AM STORE RECEIVING SPECIALIST [facility] Blood BLOOD SPECIMEN / Unknown Lab Venipuncture / Unknown 07/02/2018 3:18 AM STORE RECEIVING SPECIALIST 07/02/2018 3:24 AM STORE RECEIVING SPECIALIST Bee Rose MD LAB - CHEMISTRY ZELALEM FONTANEZ Performing Organization Address [facility]/ZIP Co de Phone Number [address] [phone] * (ABNORMAL) T4 FREE (07/02/2018 3:18 AM STORE RECEIVING SPECIALIST) Only the most recent of4 resultswithin the time period is included. Pathologist [facility] T4 Free 1.8(H) 0.7 - 1.5 ng/dL 07/02/2018 5:15 AM [facility] Blood BLOOD SPECIMEN / Unknown Lab Venipuncture / Unknown 07/02/2018 3:18 AM STORE RECEIVING SPECIALIST 07/02/2018 3:24 AM STORE RECEIVING SPECIALIST Bee Rose MD LAB - CHEMISTRY ZELALEM FONTANEZ Performing Organization Address [facility] Co de Phone Number [address] [phone] * (ABNORMAL) URINALYSIS W/MICROSCOPIC NO CULTURE (07/01/2018 2:54 AM STORE RECEIVING SPECIALIST) Only the most recent of3 resultswithin the time period is included. Color UA Yellow Straw, Yellow, Colorless 07/01/2018 3:21 AM [facility] Clarity UA Clear Clear, Slt Cloudy 07/01/2018 3:21 AM [facility] Specific [place] UA 1.003(L) 1.005 - 1.030 07/01/2018 3:21 AM [facility] pH UA 8.0 5.0 - 8.0 pH 07/01/2018 3:21 AM [facility] Protein UA Negative Negative mg/dL 07/01/2018 3:21 AM [facility] Glucose UA 1+(A) Negative mg/dL 07/01/2018 3:21 AM [facility] Ketone UA Negative Negative mg/dL 07/01/2018 3:21 AM [facility] Bilirubin UA Negative Negative mg/dL 07/01/2018 3:21 AM [facility] Blood UA Negative Negative 07/01/2018 3:21 AM [facility] Nitrite UA Negative Negative 07/01/2018 3:21 AM [facility] Leukocyte Esterase Negative Negative 07/01/2018 3:21 AM [facility] Urobilinogen UA <2.0 mg/dL 8 3:21 AM [facility] WBC UA <1 /HPF 07/01/2018 3:21 AM [facility] Bacteria UA Trace None, Trace /HPF 07/01/2018 3:21 AM [facility] Urine URINE SPECIMEN OBTAINED BY CLEAN CATCH PROCEDURE / Unknown Collection / Unknown 07/01/2018 2:54 AM STORE RECEIVING SPECIALIST 07/01/2018 2:54 AM STORE RECEIVING SPECIALIST Austin Garduno MD LAB - URINALYSIS ORD ERABLES [address] [phone] * CT HEAD WO CONTRAST (07/01/2018 1:24 AM STORE RECEIVING SPECIALIST) Only the most recent of2 resultswithin the time period is included. Anatomical Region Laterality Modality Head Computed Tomogra phy 07/01/2018 7:02 AM STORE RECEIVING SPECIALIST Impressions 07/01/2018 11:44 AM STORE RECEIVING SPECIALIST IMPRESSION: 1.No acute intracranial hemorrhage, mass effect, or midline shift. 2.Minimal residual patchy hypoattenuation in the subcortical white matter of the left parietal lobe likely representing the sequela of previously documented left MCA infarction. Subtle cortical hyperattenuation and underlying volume loss involving the posterior left temporal lobe likely representing subtle cortical laminar necrosis. 3.Unchanged left middle cranial fossa arachnoid cyst. Dictated by Travis Lamar M.D. (residential coordinator). This report was approved by Travis Lamar on 07/01/2018 9:35 AM . I, Dr. SANAZ ANGULO have personally reviewed and interpreted this examination/study. This report was electronically signed by SANAZ ANGULO on 07/01/2018 11:44 AM . Narrative 07/01/2018 11:44 AM STORE RECEIVING SPECIALIST EXAMINATION: COMPUTED TOMOGRAPHY (CT) OF THE HEAD WITHOUT CONTRAST HISTORY: Dysarthria COMPARISON: Comparison is made with a study from CT brain performed 06/05/2018. TECHNIQUE: CT of the head was performed without contrast according to standard protocol. FINDINGS: There is no acute hemorrhage. There are small patchy areas of hypoattenuation in the subcortical white matter of the left parietal lobe. There is mild volume loss in the left posterior temporal lobe. These changes correspond to evolving previously documented left MCA infarction. There is a redemonstrated left middle cranial fossa arachnoid cyst, unchanged from the prior exam. There is a small amount of mass effect on the left temporal lobe from the arachnoid cyst. There is mild cerebral volume loss with associated ex vacuo ventricular dilatation. The basilar cisterns are patent. No mass effect or midline shift is seen. The orbital contents are unremarkable. There is mild paranasal sinus disease with a mucous retention cyst in the left sphenoid sinus and right maxillary sinus. The mastoid air cells are clear. There is no calvarial fracture. There is mild degenerative changes of the right TMJ. Procedure Note Sanaz Angulo MD - 07/01/2018 EXAMINATION: COMPUTED TOMOGRAPHY (CT) OF THE HEAD WITHOUT CONTRAST HISTORY: Dysarthria COMPARISON: Comparison is made with a study from CT brain performed 06/05/2018. TECHNIQUE: CT of the head was performed without contrast according to standard protocol. FINDINGS: There is no acute hemorrhage. There are small patchy areas of hypoattenuation in the subcortical white matter of the left parietallobe. There is mild volume loss in the left posterior temporal lobe. These changes correspond to evolving previously documented left MCAinfarction. There is a redemonstrated left middle cranial fossa arachnoid cyst, unchanged from the prior exam. There is a small amount of mass effect on the left temporal lobe from the arachnoid cyst. There is mild cerebral volume loss with associated ex vacuo ventricular dilatation. The basilar cisterns are patent. No mass effect or midline shift is seen. The orbital contents are unremarkable. There is mild paranasal sinus disease with a mucous retention cyst in the left sphenoid sinus andright maxillary sinus. The mastoid air cells are clear. There is no calvarial fracture. There is mild degenerative changes of the right TMJ. IMPRESSION: 1.No acute intracranial hemorrhage, mass effect, or midline shift. 2.Minimal residual patchy hypoattenuation in the subcortical whitematter of the left parietal lobe likely representing the sequela of previously documented left MCA infarction. Subtle cortical hyperattenuation and underlying volume loss involving the posterior left temporal lobe likely representing subtle cortical laminar necrosis. 3.Unchanged left middle cranial fossa arachnoid cyst. Dictated by Travis Lamar M.D. (residential coordinator). This report was approved by Travis Lamar on 07/01/2018 9:35 AM . I, Dr. SANAZ ANGULO have personally reviewed and interpreted this examination/study. This report was electronically signed by SANAZ ANGULO on 07/01/2018 11:44 AM . Phong Romero MD CT ORDERABLES * (ABNORMAL) DRUG SCREEN TOX URINE PANEL (06/30/2018 5:44 PM STORE RECEIVING SPECIALIST) Only the most recent of2 resultswithin the time period is included. Pathologist [facility] Amphetamines Screen Urine Negative Negative : < 1000 ng/mL 06/30/2018 6:03 PM [facility] Barbiturates Screen Urine Negative Negative : < 200 ng/mL 06/30/2018 6:03 PM [facility] Benzodiazepine Screen Urine Positive(A) Negative : < 200 ng/mL 06/30/2018 6:03 PM [facility] Comment: Positive urine benzodiazepine screening results should be confirmed by another generally accepted non-immunological method such as gas chromatography or mass spectrometry. Opiates Urine Positive(A) Negative : < 300 ng/mL 06/30/2018 6:03 PM [facility] Comment: Positive urine opiate screening results should be confirmed by another generally accepted non-immunological method such as gas chromatography or mass spectrometry. Cocaine Metabolites Urine Negative Negative : < 300 ng/mL 06/30/2018 6:03 PM [facility] Phencyclidine Screen Urine Negative Negative : < 25 ng/ml 06/30/2018 6:03 PM [facility] Cannabinoids Screen Urine Negative Negative : <50 ng/mL 06/30/2018 6:03 PM [facility] Methadone Screen Urine Negative Negative : < 300 ng/mL 06/30/2018 6:03 PM [facility] Urine URINE / Unknown Collection / Unknown 06/30/2018 5:44 PM STORE RECEIVING SPECIALIST 06/30/2018 5:44 PM [facility] - 06/30/2018 6:03 PM STORE RECEIVING SPECIALIST The Urine Toxicology Screening Panel does not screen for Propoxyphene, Meprobamate, Carisoprodol, Trazodone, [id number] medications and/or volatiles (Acetone, Isopropanol, Methanol or Ethylene Glycol). Ethanol, Salicylate, Acetaminophen, Tricyclic Antidepressants and several therapeutic drugs may be individually assayed in serum or plasma specimen. Toxicology testing by the [facility] is an aid to medical diagnosis and treatment of patients. No documented chain of custody was maintained. Results are intended to be used for clinical purposes only. Debby Potter DO LAB - URINE CHEMISTR Y ORDERABLES [facility] [address] [place] [address] * (ABNORMAL) CBC W AUTO DIFFERENTIAL (06/30/2018 4:38 PM STORE RECEIVING SPECIALIST) Only the most recent of28 resultswithin the time period is included. WBC 8.5 3.5 - 10.5 10 3/uL 06/30/2018 4:45 PM [facility] RBC 4.30 4.30 - 5.70 10 6/uL 06/30/2018 4:45 PM [facility] Hemoglobin 11.9(L) 13.5 - 17.5 g/dL 06/30/2018 4:45 PM [facility] Hematocrit 37.5(L) 39.0 - 50.0 % 06/30/2018 4:45 PM [facility] MCV 87.2 81.0 - 97.0 fL 06/30/2018 4:45 PM [facility] MCH 27.7(L) 28.0 - 34.0 pg 06/30/2018 4:45 PM [facility] MCHC 31.7(L) 32.0 - 36.0 g/dL 06/30/2018 4:45 PM [facility] Platelet Count 186 150 - 400 10 3/uL 06/30/2018 4:45 PM [facility] RDW-SD 45.4 36.0 - 50.0 fL 06/30/2018 4:45 PM [facility] RDW-CV 14.2 11.2 - 14.8 % 06/30/2018 4:45 PM [facility] MPV 9.8 9.3 - 12.8 fL 06/30/2018 4:45 PM [facility] nRBC Absolute 0.00 0 10 3/uL 06/30/2018 4:45 PM [facility] nRBC Auto 0.0 0 /100 WBC 06/30/2018 4:45 PM [facility] Neutrophils % 70.0 35.0 - 70.0 % 06/30/2018 4:45 PM [facility] Lymphocytes % 14.2(L) 19.7 - 55.1 % 06/30/2018 4:45 PM [facility] Monocytes % 11.3 3.0 - 15.0 % 06/30/2018 4:45 PM [facility] Eosinophils % 3.9 0.0 - 6.0 % 06/30/2018 4:45 PM [facility] Basophil % 0.4 0.0 - 1.5 % 06/30/2018 4:45 PM [facility] Neutrophils Absolute 6.0 1.6 - 7.0 10 3/uL 06/30/2018 4:45 PM [facility] Lymphocyte Absolute 1.2 0.8 - 2.9 10 3/uL 06/30/2018 4:45 PM [facility] Monocytes Absolute 0.96(H) 0.14 - 0.66 10 3/uL 06/30/2018 4:45 PM [facility] Eosinophils Absolute 0.33 0.00 - 0.45 10 3/uL 06/30/2018 4:45 PM [facility] Basophils Absolute 0.03 0.00 - 0.06 10 3/uL 06/30/2018 4:45 PM [facility] Immature Granulocytes % 0.2 0.0 - 1.0 % 06/30/2018 4:45 PM [facility] Blood BLOOD SPECIMEN / Unknown Venipuncture / Unknown 06/30/2018 4:38 PM STORE RECEIVING SPECIALIST 06/30/2018 4:38 PM STORE RECEIVING SPECIALIST Debby Potter DO LAB - HEMATOLOGY ORD ERABLES [facility] [address] [phone] * (ABNORMAL) COMPREHENSIVE METABOLIC PANEL (06/30/2018 4:38 PM STORE RECEIVING SPECIALIST) Only the most recent of12 resultswithin the time period is included. BUN 13 7 - 26 mg/dL 06/30/2018 4:57 PM [facility] Creatinine 0.8 0.6 - 1.2 mg/dL 06/30/2018 4:57 PM [facility] Sodium 134(L) 136 - 145 mmol/L 06/30/2018 4:57 PM [facility] Potassium 4.4 3.5 - 4.5 mmol/L 06/30/2018 4:57 PM [facility] Chloride 98 98 - 107 mmol/L 06/30/2018 4:57 PM [facility] CO2 25 22 - 29 mmol/L 06/30/2018 4:57 PM [facility] Glucose 128(H) 70 - 115 mg/dL 06/30/2018 4:57 PM [facility] Calcium 9.5 8.4 - 10.2 mg/dL 06/30/2018 4:57 PM [facility] Protein Total 7.3 6.0 - 8.3 g/dL 06/30/2018 4:57 PM [facility] Albumin 3.2(L) 3.4 - 5.0 g/dL 06/30/2018 4:57 PM [facility] Bilirubin Total 0.4 0.2 - 1.2 mg/dL 06/30/2018 4:57 PM [facility] Alkaline Phosphatase 125 40 - 150 Units/L 06/30/2018 4:57 PM [facility] ALT 19 0 - 55 Units/L 06/30/2018 4:57 PM [facility] AST 21 5 - 34 Units/L 06/30/2018 4:57 PM [facility] Anion Gap 15 8 - 18 06/30/2018 4:57 PM [facility] BUN/Creatinine Ratio 16 7 - 23 06/30/2018 4:57 PM [facility] Osmolality Calculated 280 270 - 300 mOsm/kg 06/30/2018 4:57 PM [facility] Albumin/Globulin Ratio 0.8(L) 1.1 - 2.3 06/30/2018 4:57 PM [facility] eGFR >60 >60 mL/min/1.7 3 m2 06/30/2018 4:57 PM [facility] Blood BLOOD SPECIMEN / Unknown Venipuncture / Unknown 06/30/2018 4:38 PM STORE RECEIVING SPECIALIST 06/30/2018 4:38 PM STORE RECEIVING SPECIALIST Debby Potter LAB - CHEMISTRY [place] [facility] Performing Organization Address City/[facility]/ZIP Co de Phone Number [address] [phone] * ALCOHOL ETHYL BLOOD (06/30/2018 4:38 PM STORE RECEIVING SPECIALIST) Only the most recent of3 resultswithin the time period is included. Pathologist [facility] Interpretation Ethanol None Detected None Detected mg/dL 06/30/2018 4:57 PM [facility] Comment: Ethanol levels less than 10 mg/dL are resulted as None detected . Blood BLOOD SPECIMEN / Unknown Venipuncture / Unknown 06/30/2018 4:38 PM STORE RECEIVING SPECIALIST 06/30/2018 4:38 PM STORE RECEIVING SPECIALIST Debby Barrigall LAB - CHEMISTRY [place] [facility] Performing Organization Address [facility] Co de Phone Number [address] [phone] * (ABNORMAL) BASIC METABOLIC PANEL (CALCIUM TOTAL) (06/09/2018 4:26 AM STORE RECEIVING SPECIALIST) Only the most recent of13 resultswithin the time period is included. BUN 26 7 - 26 mg/dL 06/09/2018 5:38 AM [facility] Creatinine 1.1 0.6 - 1.2 mg/dL 06/09/2018 5:38 AM [facility] Sodium 133(L) 136 - 145 mmol/L 06/09/2018 5:38 AM [facility] Potassium 3.6 3.5 - 4.5 mmol/L 06/09/2018 5:38 AM [facility] Chloride 97(L) 98 - 107 mmol/L 06/09/2018 5:38 AM [facility] CO2 22 22 - 29 mmol/L 06/09/2018 5:38 AM [facility] Glucose 178(H) 70 - 115 mg/dL 06/09/2018 5:38 AM [facility] Calcium 9.1 8.4 - 10.2 mg/dL 06/09/2018 5:38 AM [facility] Anion Gap 18 8 - 18 06/09/2018 5:38 AM [facility] BUN/Creatinine Ratio 24(H) 7 - 23 06/09/2018 5:38 AM [facility] Osmolality Calculated 285 270 - 300 mOsm/kg 06/09/2018 5:38 AM [facility] eGFR >60 >60 mL/min/1.7 3 m2 06/09/2018 5:38 AM [facility] Blood BLOOD SPECIMEN / Unknown Lab Venipuncture / Unknown 06/09/2018 4:26 AM STORE RECEIVING SPECIALIST 06/09/2018 5:04 AM STORE RECEIVING SPECIALIST Mk Clark MD LAB - CHEMISTRY [place]ELALEM FONTANEZ [address] [phone] * PHOSPHORUS BLOOD (06/08/2018 3:49 AM STORE RECEIVING SPECIALIST) Only the most recent of14 resultswithin the time period is included. Phosphorus 3.1 2.3 - 4.7 mg/dL 06/08/2018 4:52 AM [facility] Blood BLOOD SPECIMEN / Unknown Lab Venipuncture / Unknown 06/08/2018 3:49 AM STORE RECEIVING SPECIALIST 06/08/2018 4:15 AM STORE RECEIVING SPECIALIST Mk Clark MD LAB - CHEMISTRY ZELALEM FONTANEZ [address] [phone] * EKG 12-LEAD (06/07/2018 10:51 PM STORE RECEIVING SPECIALIST) Only the most recent of10 resultswithin the time period is included. Ventricular Rate 121 BPM [facility] Atrial Rate 127 BPM [facility] QRS Duration ms 82 ms [facility] Q-T Interval ms 296 ms [facility] QTC Calculation (Bezet) 420 ms [facility] MUSE Calculated R Milam 84 degrees [facility] MUSE Calculated T Milam -73 degrees [facility] Interpretation EKG ATRIAL FIBRILLATION WITH RAPID VENTRICULAR RESPONSE ST & T wave abnormality ABNORMAL ECG WHEN COMPARED WITH ECG OF 06-JUN-2018 01:18, NO SIGNIFICANT CHANGE WAS FOUND Confirmed by Dionna KIMBLE, DOMI ([id number]), editorial project manager Elmira Ramos ([id number]) on 07/09/2018 1:19:11 PM [facility] 06/07/2018 10:5 1 PM STORE RECEIVING SPECIALIST 07/09/2018 1:19 PM STORE RECEIVING SPECIALIST Pastor Barry MD ECG ORDERABLES [facility] * MRI BRAIN NON CONTRAST (06/07/2018 7:58 AM STORE RECEIVING SPECIALIST) Anatomical Region Laterality Modality Head Magnetic Resonan ce 06/07/2018 10:2 8 AM STORE RECEIVING SPECIALIST Impressions 06/07/2018 11:02 AM STORE RECEIVING SPECIALIST IMPRESSION: Moderate-sized acute infarction in the left middle cerebral artery territory. No evidence of hemorrhagic conversion. I, Dr. JEWELS ABDI have personally reviewed and interpreted this examination/study. This report was electronically signed by JEWELS ABDI on 06/07/2018 11:02 AM . Narrative 06/07/2018 11:02 AM STORE RECEIVING SPECIALIST EXAMINATION: Magnetic resonance imaging (MRI) of the brain without contrast HISTORY: Aphasia TECHNIQUE: MRI of the brain was performed without contrast according to standard protocol. FINDINGS: Comparison is made to a head CT from 06/05/2018 There is a moderate-sized area of cortical and subcortical diffusion restriction in the left temporal and left parietal lobes as well as posterior left insula with associated FLAIR hyperintensity, representing acute infarction in the left middle cerebral artery territory. There are scattered punctate microhemorrhages in the bilateral cerebral hemispheres. There is mild cerebral volume loss with associated ex vacuo ventricular dilatation. An arachnoid cyst in the left middle cranial fossa is unchanged, with mild local mass effect on the left temporal lobe. There is no midline shift. Mild periventricular white matter FLAIR hyperintensities likely represent sequelae of chronic small vessel ischemic disease. The corpus callosum and sella appear normal. The posterior fossa, brainstem, and craniocervical junction appear normal. The visualized portions of the orbits, paranasal sinuses, and mastoids appear normal. Normal flow voids are demonstrated in the carotid arteries and basilar artery. The calvarium and visualized cervical spine appear normal. Procedure Note Jewels Abdi MD - 06/07/2018 EXAMINATION: Magnetic resonance imaging (MRI) of the brain withoutcontrast HISTORY: Aphasia TECHNIQUE: MRI of the brain was performed without contrast according to standard protocol. FINDINGS: Comparison is made to a head CT from 06/05/2018 There is a moderate-sized area of cortical and subcortical diffusion restriction in the left temporal and left parietal lobes as well as posterior left insula with associated FLAIR hyperintensity, representing acute infarction in the left middle cerebral artery territory. There are scattered punctate microhemorrhages in the bilateral cerebral hemispheres. There is mild cerebral volume loss with associated ex vacuo ventricular dilatation. An arachnoid cyst in the left middle cranialfossa is unchanged, with mild local mass effect on the left temporal lobe.There is no midline shift. Mild periventricular white matter FLAIR hyperintensities likely represent sequelae of chronic small vessel ischemic disease. The corpus callosum and sella appear normal. The posterior fossa, brainstem, and craniocervical junction appear normal. The visualized portions of the orbits, paranasal sinuses, and mastoids appear normal. Normal flow voids are demonstrated in the carotidarteries and basilar artery. The calvarium and visualized cervical spine appear normal. IMPRESSION: Moderate-sized acute infarction in the left middle cerebral artery territory. No evidence of hemorrhagic conversion. I, Dr. JEWELS ABDI have personally reviewed and interpreted this examination/study. This report was electronically signed by JEWELS ABDI on 06/07/201811:02 AM . Elizabet Terrell MR ORDERABLES * (ABNORMAL) TROPONIN I (06/06/2018 4:56 PM STORE RECEIVING SPECIALIST) Only the most recent of8 resultswithin the time period is included. Troponin I 0.033(H) <0.032 ng/mL 06/06/2018 5:25 PM STORE RECEIVING SPECIALIST [facility] Blood BLOOD SPECIMEN / Unknown Venipuncture / Unknown 06/06/2018 4:56 PM STORE RECEIVING SPECIALIST 06/06/2018 5:00 PM STORE RECEIVING SPECIALIST Mk Clark MD LAB - CHEMISTRY [place] FONTANE[place] [facility] [address] [place] [address], [facility] [phone] * ECHO COMPLETE W BUBBLE STUDY (06/06/2018 12:25 PM STORE RECEIVING SPECIALIST) Anatomical Region Laterality Modality Color Flow Doppl er 06/06/2018 11:0 5 AM STORE RECEIVING SPECIALIST Narrative Procedure Note Lexii Arauz MD - 06/06/2018 Mk Clark MD ECHOCARDIOGRAPHY RAD IANT * (ABNORMAL) HEMOGLOBIN A1C (06/06/2018 3:33 AM STORE RECEIVING SPECIALIST) Hemoglobin A1c 6.9(H) 4.4 - 6.3 % 06/06/2018 8:01 AM STORE RECEIVING SPECIALIST [facility] Estimated Average Glucose 151 mg/dL 06/06/2018 8:01 AM [facility] Comment: HbA1c Interpretation: Treatment target values recommended by ADA and other clinical organizations should be used to evaluate metabolic control in patients. Treatment Target Values: Normal : < 5.7% Pre-diabetes: 5.7-6.4% Diabetes: Equal to or greater than 6.5% Reference: [place] Diabetes Association Standards of Care in Diabetes -2014 In patients 70 years and older consider HbA1c target range of 7.0-7.5% Reference: Diabetes Mellitus in Older People: Position Statement on behalf of the International Association of Gerontology and Geriatrics (IAGG), the Diabetes Working Democrat for Older People (EDWPOP), and the International Task Force of Experts in Diabetes. Sebastian Lim, et al. J [employer]. 2012 Test results diagnostic of diabetes should be repeated for confirmation. The Tosoh G8 assay for the measurement of HbA1c is a National Glycohemoglobin Standardization Program (NGSP)certified method. Results for patients with HbE disease should be interpreted with caution as this hemoglobinopathy has been shown to interfere with the Tosoh G8 assay. Blood BLOOD SPECIMEN / Unknown Venipuncture / Unknown 06/06/2018 3:33 AM STORE RECEIVING SPECIALIST 06/06/2018 3:33 AM STORE RECEIVING SPECIALIST Mk Clark MD LAB - CHEMISTRY ZELALEM FONTANEZ [facility] [address] [place] [address] * (ABNORMAL) URINALYSIS REFLEX TO MICROSCOPIC NO CULTURE (06/05/2018 9:18 PM STORE RECEIVING SPECIALIST) Color UA Yellow Straw, Yellow, Colorless, Light Yellow 06/05/2018 11:13 PM [facility] Clarity UA Clear Clear 06/05/2018 11:13 PM [facility] Specific [place] UA 1.004 1.001 - 1.030 06/05/2018 11:13 PM [facility] pH UA 6.0 5.0 - 8.0 06/05/2018 11:13 PM [facility] Protein UA Negative <=20 mg/dL 06/05/2018 11:13 PM [facility] Glucose UA Negative Negative mg/dL 06/05/2018 11:13 PM [facility] Ketone UA Negative Negative mg/dL 06/05/2018 11:13 PM [facility] Bilirubin UA Negative Negative mg/dL 06/05/2018 11:13 PM [facility] Blood UA Negative Negative 06/05/2018 11:13 PM [facility] Nitrite UA Negative Negative 06/05/2018 11:13 PM [facility] Leukocyte Esterase Negative Negative 06/05/2018 11:13 PM [facility] Urobilinogen UA <2.0 <2.0 mg/dL 8 11:13 PM [facility] RBC UA <1 0 - 8 /HPF 06/05/2018 11:13 PM [facility] WBC UA <1 0 - 2 /HPF 06/05/2018 11:13 PM [facility] Mucus UA Rare(A) None /LPF 06/05/2018 11:13 PM [facility] Urine URINE SPECIMEN OBTAINED BY CLEAN CATCH PROCEDURE / Unknown Collection / Unknown 06/05/2018 9:18 PM STORE RECEIVING SPECIALIST 06/05/2018 10:59 PM STORE RECEIVING SPECIALIST Mk Clark MD LAB - URINALYSIS ORD ERABLES [address] [phone] * XR CHEST 1VW PORTABLE (06/05/2018 9:17 PM STORE RECEIVING SPECIALIST) Only the most recent of5 resultswithin the time period is included. Anatomical Region Laterality Modality Chest Radiographic Felicitas ging 06/06/2018 7:02 AM STORE RECEIVING SPECIALIST Impressions 06/06/2018 7:17 AM STORE RECEIVING SPECIALIST FINDINGS/IMPRESSION: Median sternotomy wires are intact and well aligned. There is no focal consolidation, pleural effusion, or pneumothorax. The heart size is normal. The visible bony thorax is intact. Dictated by Lexie Tello MD (residential coordinator). Dr. MELISSA Jarvis have personally reviewed and interpreted this examination/study. This report was electronically signed by MELISSA PARTIDA on 06/06/2018 7:17 AM . Narrative 06/06/2018 7:17 AM STORE RECEIVING SPECIALIST EXAMINATION: XR CHEST 1VW PORTABLE HISTORY: Code stroke COMPARISON: No prior study is available for comparison. Procedure Note Melissa Partida, DO - 06/06/2018 EXAMINATION: XR CHEST 1VW PORTABLE HISTORY: Code stroke COMPARISON: No prior study is available for comparison. FINDINGS/IMPRESSION: Median sternotomy wires are intact and well aligned. There is no focal consolidation, pleural effusion, or pneumothorax. The heart size is normal. The visible bony thorax is intact. Dictated by Lexie Tello MD (residential coordinator). Dr. MELISSA Jarvis have personally reviewed and interpreted this examination/study. This report was electronically signed by MELISSA PARTIDA on 06/06/2018 7:17 AM . Amado Hinojosa MD DIAGNOSTIC IMAGING O RDERABLES * TYPE + SCREEN PANEL (06/05/2018 9:17 PM STORE RECEIVING SPECIALIST) Only the most recent of2 resultswithin the time period is included. Antibody Screen NEG 8 10:37 PM [facility] ABO Rh O POS 06/05/2018 10:37 PM [facility] Blood Bank BLOOD SPECIMEN / Unknown Venipuncture / Unknown 06/05/2018 9:17 PM STORE RECEIVING SPECIALIST 06/05/2018 9:43 PM STORE RECEIVING SPECIALIST Vamshi Murry MD LAB - BLOOD BANK ORD DONNA Performing Organization Address [facility]/ZIP Co de Phone Number [facility] [address] [place] [address] * BILIRUBIN DIRECT (06/05/2018 9:17 PM STORE RECEIVING SPECIALIST) Bilirubin Conjugated 0.2 0.0 - 0.5 mg/dL 06/05/2018 11:12 PM [facility] Bilirubin Unconjugated 0.6 Unconjugated Bilirubin is a calculated value: Reference ranges have not been established. mg/dL 06/05/2018 11:12 PM [facility] Blood BLOOD SPECIMEN / Unknown Venipuncture / Unknown 06/05/2018 9:17 PM STORE RECEIVING SPECIALIST 06/05/2018 10:58 PM STORE RECEIVING SPECIALIST Carmen Barr MD LAB - CHEMISTRY ZELALEM FONTANEZ Performing Organization Address [facility] Co de Phone Number [address] [phone] * (ABNORMAL) LIPID PROFILE (06/05/2018 9:17 PM STORE RECEIVING SPECIALIST) Cholesterol Total 131 <200 mg/dL 06/05/2018 11:12 PM [facility] HDL 19(L) >40 mg/dL 06/05/2018 11:12 PM [facility] Comment: ATP III Classification of HDL Cholesterol: <40 mg/dL: Considered a major risk factor. >60 mg/dL: Considered a negative risk factor. LDL Calculated 79 <100 mg/dL 06/05/2018 11:12 PM [facility] Comment: ATP III Classification of LDL Cholesterol: <100 mg/dL: Optimal 100 - 129 mg/dL: Near Optimal/Above Optimal 130 - 159 mg/dL: Borderline High 160 - 189 mg/dL: High >190 mg/dL: Very High Triglycerides 164(H) <150 mg/dL 06/05/2018 11:12 PM STORE RECEIVING SPECIALIST [facility] Comment: ATP III Classification of Triglycerides: <150 mg/dL: Normal 150 - 199 mg/dL: Borderline High 200 - 400 mg/dL: High >500 mg/dL: Very High Blood BLOOD SPECIMEN / Unknown Venipuncture / Unknown 06/05/2018 9:17 PM STORE RECEIVING SPECIALIST 06/05/2018 10:58 PM STORE RECEIVING SPECIALIST Mk Clark MD LAB - CHEMISTRY ZELALEM FONTANEZ [facility] [address] [place] [address] * CT ANGIO BRAIN NECK STROKE (06/05/2018 8:58 PM STORE RECEIVING SPECIALIST) Anatomical Region Laterality Modality Head Computed Tomogra phy 06/06/2018 7:47 AM STORE RECEIVING SPECIALIST Impressions 06/06/2018 8:06 AM STORE RECEIVING SPECIALIST IMPRESSION: Focal filling defect in the left M2 segment, representing thromboembolism versus severe stenosis. No other abnormality of intracranial circulation. No significant stenosis of the cervical carotid or vertebral arteries. These findings were discussed with Dr. Terrell at 7:50 a.m. This report was electronically signed by JEWELS ABDI on 06/06/2018 8:06 AM . Narrative 06/06/2018 8:06 AM STORE RECEIVING SPECIALIST EXAMINATION: CT angiography of the brain CT angiography of the neck HISTORY: Code Stroke TECHNIQUE: CT angiography of the head and neck was obtained after the uneventful administration of 75 mL Isovue 370 intravenous contrast. Three dimensional postprocessing was performed by the technologist and sent to the workstation for review. COMPARISON: None FINDINGS: The common and internal carotid arteries are patent bilaterally without hemodynamically significant stenosis. Scattered calcification is seen at the carotid bifurcations bilaterally. Wall calcification of the internal carotid arteries are seen. There is a focal (3 mm) filling defect in the left M2 segment (inferior division) in the proximal sylvian fissure (series 6 image 179). The distal vessels are patent. The left M1 is unremarkable. The anterior and right middle cerebral arteries are within normal limits. There is a normal anterior communicating artery. The vertebral arteries are normal in intracranial and extracranial course. The basilar artery is normal. The posterior cerebral arteries are within normal limits. Both posterior communicating arteries are not visualized. Neck soft tissue findings: Several calcified mediastinal lymph nodes are seen. Right upper lobe subpleural calcified granuloma is present. Procedure Note Jewels Abdi MD - 06/06/2018 EXAMINATION: CT angiography of the brain CT angiography of the neck HISTORY: Code Stroke TECHNIQUE: CT angiography of the head and neck was obtained after the uneventful administration of 75 mL Isovue 370 intravenous contrast.Three dimensional postprocessing was performed by the technologist and sent to the workstation for review. COMPARISON: None FINDINGS: The common and internal carotid arteries are patent bilaterally without hemodynamically significant stenosis. Scattered calcification is seen at the carotid bifurcations bilaterally. Wall calcification of the internal carotid arteries are seen. There is a focal (3 mm) filling defect in the left M2 segment (inferior division) in the proximal sylvian fissure (series 6 image 179). The distal vessels are patent. The left M1 is unremarkable. The anterior and right middle cerebral arteries are within normal limits. There is a normal anterior communicating artery. The vertebral arteries are normal in intracranial and extracranialcourse. The basilar artery is normal. The posterior cerebral arteries arewithin normal limits. Both posterior communicating arteries are notvisualized. Neck soft tissue findings: Several calcified mediastinal lymph nodes are seen. Right upper lobe subpleural calcified granuloma is present. IMPRESSION: Focal filling defect in the left M2 segment, representingthromboembolism versus severe stenosis. No other abnormality of intracranialcirculation. No significant stenosis of the cervical carotid or vertebral arteries. These findings were discussed with Dr. Terrell at 7:50 a.m. This report was electronically signed by JEWELS ABDI on 06/06/2018 8:06 AM . Vamshi Murry MD CT ORDERABLES * (ABNORMAL) CREATININE BLOOD - POCT (IP) [facility] (06/05/2018 8:52 PM STORE RECEIVING SPECIALIST) Only the most recent of4 resultswithin the time period is included. Creatinine POCT 1.5(A) 0.3 - 1.3 mg/dL [facility] eGFR POCT 51(A) 60 ml/min [facility] Blood BLOOD SPECIMEN / Unknown 06/05/2018 8:52 PM STORE RECEIVING SPECIALIST Phong Romero MD LAB - POINT OF CARE ORDERABLES [facility] [address] [phone] * CT BRAIN STROKE PROTOCOL (06/05/2018 8:39 PM STORE RECEIVING SPECIALIST) Anatomical Region Laterality Modality Head Computed Tomogra phy 06/06/2018 7:43 AM STORE RECEIVING SPECIALIST Addenda Addendum by Jewels Abdi MD on 06/06/2018 8:10 AM STORE RECEIVING SPECIALIST ORIGINAL REPORT EXAMINATION: Computed tomography (CT) of the head without contrast HISTORY: Code Stroke TECHNIQUE: CT of the head was performed without contrast according to standard protocol. COMPARISON: CT head from 09/22/2014 and 06/05/2018 (from outside institution) were reviewed. FINDINGS: There is no CT evidence of acute infarct. There is no acute hemorrhage. There is no hydrocephalus. An arachnoid cyst is seen in the left middle cranial fossa measuring 2.3 x 3.3 x 3.1 cm. There is mild mass effect on the subjacent temporal lobe. There is mild age-appropriate cerebral volume loss. Scattered arterial calcifications are noted intracranially. The tympanomastoid cavities and paranasal sinuses are grossly aerated. There is no significant osseous abnormality. The orbits are unremarkable. IMPRESSION: No acute intracranial abnormality. These findings were preliminarily discussed with Dr. Nelson at 8:53 PM on 06/05/2018. This report was electronically signed by JEWELS ABDI on 06/06/2018 7:47 AM . ADDENDUM #1 Upon further review, there is subtle loss of dover-white matter differentiation and partial effacement of sulci in the left posterior temporal lobe which may represent acute infarct. This report was electronically signed by JEWELS ABDI on 06/06/2018 8:07 AM . Impressions 06/06/2018 7:47 AM STORE RECEIVING SPECIALIST IMPRESSION: No acute intracranial abnormality. These findings were preliminarily discussed with Dr. Nelson at 8:53 PM on 06/05/2018. This report was electronically signed by JEWELS ABDI on 06/06/2018 7:47 AM . Narrative 06/06/2018 7:47 AM STORE RECEIVING SPECIALIST EXAMINATION: Computed tomography (CT) of the head without contrast HISTORY: Code Stroke TECHNIQUE: CT of the head was performed without contrast according to standard protocol. COMPARISON: CT head from 09/22/2014 and 06/05/2018 (from outside institution) were reviewed. FINDINGS: There is no CT evidence of acute infarct. There is no acute hemorrhage. There is no hydrocephalus. An arachnoid cyst is seen in the left middle cranial fossa measuring 2.3 x 3.3 x 3.1 cm. There is mild mass effect on the subjacent temporal lobe. There is mild age-appropriate cerebral volume loss. Scattered arterial calcifications are noted intracranially. The tympanomastoid cavities and paranasal sinuses are grossly aerated. There is no significant osseous abnormality. The orbits are unremarkable. Procedure Note Jewels Abdi MD - 06/06/2018 EXAMINATION: Computed tomography (CT) of the head without contrast HISTORY: Code Stroke TECHNIQUE: CT of the head was performed without contrast according to standard protocol. COMPARISON: CT head from 09/22/2014 and 06/05/2018 (from outside institution) were reviewed. FINDINGS: There is no CT evidence of acute infarct. There is no acute hemorrhage. There is no hydrocephalus. An arachnoid cyst is seen in the left middle cranial fossa measuring 2.3 x 3.3 x 3.1 cm. There is mild mass effect on the subjacent temporal lobe. There is mild age-appropriate cerebralvolume loss. Scattered arterial calcifications are noted intracranially. The tympanomastoid cavities and paranasal sinuses are grossly aerated. There is no significant osseous abnormality. The orbits areunremarkable. IMPRESSION: No acute intracranial abnormality. These findings were preliminarily discussed with Dr. Nelson at 8:53 PM on 06/05/2018. This report was electronically signed by JEWELS ABDI on 06/06/2018 7:47 AM . Vamshi Murry MD CT ORDERABLES * MRI ABDOMEN WWO CONTRAST (09/02/2016 12:24 PM STORE RECEIVING SPECIALIST) Only the most recent of2 resultswithin the time period is included. Anatomical Region Laterality Modality Abdomen Other Impressions 09/02/2016 3:21 PM STORE RECEIVING SPECIALIST IMPRESSION: 1. Slightly decreased size of a hepatic segment 5/8 lesion consistent with an atypical hemangioma. Two smaller hemangiomas in hepatic segment 6. 2. Unchanged 2.2 cm left adrenal adenoma. Dictated by Leo Velez MD (residential coordinator). This report was approved by Leo Velez on 09/02/2016 3:21 PM . I, Dr. YESSENIA WOLF M.D. have personally reviewed and interpreted this examination/study. This report was electronically signed by YESSENIA WOLF M.D. on 09/02/2016 3:21 PM . Narrative 09/02/2016 3:21 PM STORE RECEIVING SPECIALIST EXAMINATION: Magnetic resonance imaging (MRI) of the abdomen without and with contrast HISTORY: Liver mass, prior history of alcohol abuse TECHNIQUE: MRI of the abdomen and pelvis was performed prior to and following the uneventful administration of 10 mL of Eovist intravenous gadolinium contrast according to standard protocol. COMPARISON: Comparison is made with a study from 04/16/2016. FINDINGS: Abdomen: The visible lung bases are clear. There is mild diffuse hepatic steatosis without evidence of cirrhosis. A T2 hyperintense, arterially enhancing lesion in the periphery of hepatic segment 5/8 measuring 2.4 x 1.4 cm in axial dimension (series 16, image 16) with mild surrounding parenchymal enhancement is slightly decreased in size, previously measuring 3.4 x 2.5 cm, and likely represents an atypical hemangioma. An additional 7 mm T2 hyperintense, enhancing lesion in the periphery of hepatic segment 7 is grossly unchanged and most likely represents a hemangioma (series 15, image 11). A 5 mm T2 hyperintense, enhancing lesion in hepatic segment 6 (series 16, image 22) also likely represents a hemangioma. An 8 mm cyst is seen in hepatic segment 6 (series 16, image 25). No arterially enhancing lesion suspicious for hepatocellular carcinoma is identified. The intrahepatic and extrahepatic bile ducts are nondilated. The hepatic arterial anatomy is conventional. The portal vein and its major branches are patent. The hepatic veins are patent. Multiple bilateral subcentimeter renal cysts are again seen. A hemorrhagic cyst in the interpole of the right kidney is unchanged. A 2.2 cm left adrenal nodule is unchanged and consistent with an adrenal adenoma. The right adrenal gland is normal. The gallbladder, spleen, and visible bowel loops are normal. There is mild fatty atrophy of the pancreas. No free intraperitoneal fluid is identified. There is moderate L5-S1 degenerative disc disease. Procedure Note Provider, MD Ibis - 10/08/2017 EXAMINATION: Magnetic resonance imaging (MRI) of the abdomen without andwith contrast HISTORY: Liver mass, prior history of alcohol abuse TECHNIQUE: MRI of the abdomen and pelvis was performed prior to andfollowing the uneventful administration of 10 mL of Eovist intravenousgadolinium contrast according to standard protocol. COMPARISON: Comparison is made with a study from 04/16/2016. FINDINGS: Abdomen: The visible lung bases are clear. There is mild diffuse hepatic steatosis without evidence of cirrhosis. AT2 hyperintense, arterially enhancing lesion in the periphery of hepaticsegment 5/8 measuring 2.4 x 1.4 cm in axial dimension (series 16, image16) with mild surrounding parenchymal enhancement is slightly decreased in size, previouslymeasuring 3.4 x 2.5 cm, and likely represents an atypical hemangioma. Anadditional 7 mm T2 hyperintense, enhancing lesion in the periphery ofhepatic segment 7 is grossly unchanged and most likely represents a hemangioma (series 15, image 11). A 5 mm [id number], enhancing lesion in hepatic segment 6 (series 16, image 22)also likely represents a hemangioma. An 8 mm cyst is seen in hepaticsegment 6 (series 16, image 25). No arterially enhancing lesion suspicious for hepatocellular carcinoma isidentified. The intrahepatic and extrahepatic bile ducts are nondilated. The hepaticarterial anatomy is conventional. The portal vein and its major branchesare patent. The hepatic veins are patent. Multiple bilateral subcentimeter renal cysts are again seen. A hemorrhagiccyst in the interpole of the right kidney is unchanged. A 2.2 cm leftadrenal nodule is unchanged and consistent with an adrenal adenoma. Theright adrenal gland is normal. The gallbladder, spleen, and visible bowel loops are normal. There is mildfatty atrophy of the pancreas. No free intraperitoneal fluid isidentified. There is moderate L5-S1 degenerative disc disease. IMPRESSION IMPRESSION: 1. Slightly decreased size of a hepatic segment 5/8 lesion consistent withan atypical hemangioma. Two smaller hemangiomas in hepatic segment 6. 2. Unchanged 2.2 cm left adrenal adenoma. Dictated by Leo Velez MD (residential coordinator). This report was approved by Leo Velez on 09/02/2016 3:21 PM . I, Dr. YESSENIA WOLF M.D. have personally reviewed and interpreted thisexamination/study. This report was electronically signed by YESSENIA WOLF M.D. on 09/02/20163:21 PM . Toy Velasquez MD MR ORDERABLES * CANCER ANTIGEN (CA) 19-9 (03/04/2016 11:54 AM CDT) CA 19-9 24 0 - 35 U/mL [facility] Comment:Miller ECLIA methodol ogy Blood specimen (specimen) BLOOD SPECIMEN / Unknown 03/04/2016 11:54 AM CDT 03/04/2016 12:25 PM CDT Narrative [facility] ([facility]) - 03/05/2016 8:32 AM CDT Performed at: [address] [place] [address] Strategic Planning Analyst: Alvaro Jimenez PhD, Phone: [phone] Savanah Shah MD LAB - CHEMISTRY ZELALEM FONTANEZ [facility] Organization Address City/State/ZIP Co de Phone Number [facility] * ALPHA FETOPROTEIN BLOOD TUMOR (03/04/2016 11:54 AM CDT) Alpha-Fetoprotei n Tumor Marker 1.5 0.0 - 8.3 ng/mL [facility] ([facility]) Comment:Miller ECLIA methodol ogy Blood specimen (specimen) BLOOD SPECIMEN / Unknown 03/04/2016 11:54 AM CDT 03/04/2016 2:57 PM CDT Narrative [facility] ([facility]) - 03/05/2016 6:13 AM CDT Performed at: [address] [place] [id number] Strategic Planning Analyst: Alvaro Jimenez PhD, Phone: [phone] Savanah Shah MD LAB - CHEMISTRY ZELALEM FONTANEZ Performing Organization Address City/[facility]/ZIP Co de Phone Number [facility] ([facility]) * CEA BLOOD (03/04/2016 11:13 AM CDT) CEA 1.7 <=5.0 ng/mL [facility] Blood specimen (specimen) BLOOD SPECIMEN / Unknown 03/04/2016 11:13 AM CDT 03/04/2016 12:25 PM CDT Savanah Shah MD LAB - CHEMISTRY ZELALEM FONTANEZ Performing Organization Address [facility] Co de Phone Number [address] [phone] * CK + CKMB PANEL (12/28/2014 12:44 AM CDT) Only the most recent of4 resultswithin the time period is included. CK Total 49 30 - 200 Units/L [facility] CK-MB 1.2 0.0 - 6.6 ng/mL [facility] Blood specimen (specimen) BLOOD SPECIMEN / Unknown 12/28/2014 12:44 AM CDT 12/28/2014 12:58 AM CDT Lexii Arauz MD LAB - CHEMISTRY ZELALEM FONTANEZ Performing Organization Address [facility] Co de Phone Number [address] [phone] * ECHO MECHE W POSS CARDIOVERSION (12/28/2014 12:00 AM CDT) Only the most recent of2 resultswithin the time period is included. Anatomical Region Laterality Modality Other 12/28/2014 Romeo Elder MD ECHOCARDIOGRAPHY RAD IANT * XR CHEST 2VW (12/27/2014 5:50 PM CDT) Anatomical Region Laterality Modality Chest Other Impressions 12/28/2014 11:37 AM CDT Impression: Diffuse interstitial opacities, likely representing pulmonary edema and/or infection in the acute setting. Mild cardiomegaly, unchanged. This report has been dictated by Daija Chong M.D. (Resident). This report was approved by Daija Chong on 12/28/2014 10:12 AM . IDr. STEPHANIE M.D. have personally reviewed and interpreted this examination/study. This report was electronically signed by STEPHANIE ROLLINS M.D. on 12/28/2014 11:37 AM . Narrative 12/28/2014 11:37 AM CDT Exam: Chest, PA and lateral views Date: 12/27/2014 History: 54-year-old male with chest pain and palpitations. Comparison: Portable chest radiograph dated 09/24/14 at 4:40 AM. Findings: The endotracheal tube, enteric tube, and right internal jugular venous catheter have been removed since the prior study. Median sternotomy wires are intact and well aligned. Diffuse bilateral interstitial opacities likely represent pulmonary edema and/or infection in the acute setting. There is no pleural effusion or pneumothorax. The heart is mildly enlarged, unchanged. The superior mediastinal contours are within normal limits. The visible bony thorax is intact. Degenerative changes are most pronounced in the lower thoracic spine. Procedure Note Stephanie Rollins MD - 10/09/2017 Exam: Chest, PA and lateral views Date: 12/27/2014 History: 54-year-old male with chest pain and palpitations. Comparison: Portable chest radiograph dated 09/24/14 at 4:40 AM. Findings: The endotracheal tube, enteric tube, and right internal jugular venouscatheter have been removed since the prior study. Median sternotomy wiresare intact and well aligned. Diffuse bilateral interstitial opacities likely represent pulmonary edemaand/or infection in the acute setting. There is no pleural effusion orpneumothorax. The heart is mildly enlarged, unchanged. The superiormediastinal contours are within normal limits. The visible bony thorax is intact. Degenerative changes are mostpronounced in the lower thoracic spine. IMPRESSION Impression: Diffuse interstitial opacities, likely representing pulmonary edema and/orinfection in the acute setting. Mild cardiomegaly, unchanged. This report has been dictated by Daija Chong M.D. (Resident). This report was approved by Daija Chong on 12/28/2014 10:12 AM . I, Dr. STEPHANIE ROLLINS M.D. have personally reviewed and interpreted thisexamination/study. This report was electronically signed by STEPHANIE ROLLINS M.D. on 12/28/201411:37 AM . Adelaide Knight MD DIAGNOSTIC IMAGING O RDERABLES * (ABNORMAL) B-TYPE NATRIURETIC PEPTIDE (12/27/2014 5:42 PM CDT) Only the most recent of2 resultswithin the time period is included. BNP 186(H) See Comment pg/mL [facility] Comment: A decision threshold of 100 pg/mL has been demonstrated to provide the maximal combination of sensitivity, specificity and predictive value for the diagnosis of congestive heart failure (CHF). Virtually all patients with no evidence of CHF have BNP values less than 100 pg/mL. A BNP value greater than 100 pg/mL is consistent with the diagnosis of CHF in the appropriate clinical setting. In a study of 693 patients (male and female) with diagnosed CHF, the following values were determined based on the NYHA functional classification system: NYHA Functional Class Mean Valule (pg/mL) % >100 pg/mL I 320 58.1 II 432 73.0 III 656 79.0 IV 1635 98.3 Blood specimen (specimen) BLOOD SPECIMEN / Unknown 12/27/2014 5:42 PM CDT 12/27/2014 5:49 PM CDT Adelaide Knight MD LAB - CHEMISTRY ZEL[facility] Organization Address City/State/ZIP Co de Phone Number [address] [phone] * (ABNORMAL) DIGOXIN LEVEL (12/27/2014 5:42 PM CDT) Only the most recent of4 resultswithin the time period is included. Digoxin <0.3(L) 0.8 - 2.0 ng/mL [facility] Comment: The dressing machine operator of Digoxin Immune Jani has stated that no immunoassay technique is suitable for quantitating digoxin in plasma/serum from patients on antibody fragment therapy. Blood specimen (specimen) BLOOD SPECIMEN / Unknown 12/27/2014 5:42 PM CDT 12/27/2014 5:50 PM CDT Narrative [facility] - 12/27/2014 6:36 PM CDT Order if patient is taking Digoxin Adelaide Knight MD LAB - CHEMISTRY ZELALEM FONTANEZ Performing Organization Address City/[facility]/ZIP Co de Phone Number [address] [phone] * VAS BILATERAL VENOUS DUPLEX LE (09/28/2014 4:38 PM CDT) Anatomical Region Laterality Modality Other Petr Arrington MD VASCULAR LAB ORDERAB LES * VANCOMYCIN LEVEL TROUGH (09/27/2014 5:40 PM CDT) Only the most recent of2 resultswithin the time period is included. Vancomycin Trough 14.5 10.0 - 20.0 mcg/mL [facility] Blood specimen (specimen) BLOOD SPECIMEN / Unknown 09/27/2014 5:40 PM CDT 09/27/2014 5:42 PM CDT Petr Arrington MD LAB - CHEMISTRY ZELALEM FONTANEZ [address] [phone] * (ABNORMAL) BLOOD GASES ART (09/26/2014 7:36 AM CDT) Only the most recent of14 resultswithin the time period is included. pH Arterial 7.41 7.35 - 7.45 [facility] pCO2 Arterial 44 35 - 45 mmHg [facility] pO2 Arterial 84 77 - 101 mmHg [facility] HCO3 Arterial 27.5(H) 22.0 - 26.0 mmol/L [facility] TCO2 Arterial 28.8 25.0 - 29.0 mmol/L [facility] Base Excess Arterial 2.4(H) -2.0 - 2.0 mmol/L [facility] Hemoglobin Arterial 12.6(L) 13.5 - 17.5 g/dL [facility] Oxyhemoglobin Arterial 94.5(L) 95.0 - 100.0 % [facility] Carboxyhemoglobin 0.8 0.0 - 3.0 % [facility] Methemoglobin 0.3 0.0 - 2.0 % [facility] FI O2 Arterial 50.0 % [facility] Blood specimen (specimen) BLOOD SPECIMEN / Unknown 09/26/2014 7:36 AM CDT 09/26/2014 7:44 AM CDT Narrative [facility] - 09/26/2014 7:48 AM CDT FIO2->50 Petr Arrington MD LAB - BLOOD GASES OR DERABLES Performing Organization Address [facility] Co de Phone Number [address] [phone] * (ABNORMAL) GLUCOSE ACCUCHECK (09/26/2014 6:00 AM CDT) Only the most recent of12 resultswithin the time period is included. Glucose, Fingerstick 133(H) 70-115mg/d L mg/dL [facility] SHERI) Comment:Allopathic Doctor: SURJIT Lim 09/26/2014 6:00 AM CDT Petr Arrington MD LAB - CHEMISTRY ORDE RABLES Performing Organization Address [facility] Co de Phone Number [facility] * (ABNORMAL) HEMOGLOBIN (09/24/2014 7:49 AM CDT) Hemoglobin 11.8(L) 13.5 - 17.5 g/dL [facility] Blood specimen (specimen) BLOOD SPECIMEN / Unknown 09/24/2014 7:49 AM CDT 09/24/2014 8:01 AM CDT Petr Arrington MD LAB - HEMATOLOGY ORD ERABLES Performing Organization Address [facility] Co de Phone Number [address] [phone] * (ABNORMAL) PTT [facility] (09/23/2014 4:02 AM CDT) Only the most recent of2 resultswithin the time period is included. APTT 55.1(H) 23.0 - 38.4 Seconds [facility] Comment:Suggested therapeuti c range for full dose I.V. heparin therapy for venous thromboembolism is 66.0-91.0 seconds. Blood specimen (specimen) BLOOD SPECIMEN / Unknown 09/23/2014 4:02 AM CDT 09/23/2014 4:08 AM CDT Narrative [facility] - 09/23/2014 4:50 AM CDT Is patient on Heparin, Argatroban or Dabigatran?->N Petr Arrington MD LAB - COAGULATION OR DERABLES [facility] [address] [place] [address] * FIBRIN MONOMER (09/23/2014 4:02 AM CDT) Pathologist [facility] Fibrin Monomer Negative Negative [facility] Comment: Decreased Prolonged Decreased Increased Increased Platelets PT Fibrinogen Fibrin D-Dimer Monomer Acute DIC + + +/- + + Subacute DIC + + +/- - + DVT, PE, Surgery -/+ -/+ - -/+ + Vitamin K Deficiency - + - - - Liver Disease +/- + -/+ -/+ +/- COMMENT: DIC is a possible complication of a number of clinical conditions. The classic laboratory features of combined thrombocytopenia, coagulopathy (due to consumption of labile coagulation factors) and increased levels of soluble fibrin and fibrinogen/fibrin degradation products are generally seen only in severe, acute DIC. Some of the laboratory abnormalities seen in DIC may be observed with extensive, localized thrombosis and severe liver disease (see table). Blood specimen (specimen) BLOOD SPECIMEN / Unknown 09/23/2014 4:02 AM CDT 09/23/2014 4:08 AM CDT Petr Arrington MD LAB - COAGULATION OR DERABLES Performing Organization Address [facility] Co de Phone Number [address] [phone] * D-DIMER (09/23/2014 4:02 AM CDT) D-Dimer Quantitative <0.22 <=0.50 mcg/mL FEU [facility] Comment: In the absence of clinical symptoms, a value less than or equal to 0.5 FEU significantly decreases the probability of PE/DVT (negative predictive value >95%). 1 mcg/mL FEU = 1 Fibrinogen Equivalent Unit (approximates 0.5 mcg/ml of D- Dimer). Blood specimen (specimen) BLOOD SPECIMEN / Unknown 09/23/2014 4:02 AM CDT 09/23/2014 4:08 AM CDT Petr Arrington MD LAB - COAGULATION OR DERABLES Performing Organization Address [facility] de Phone Number [address] [phone] * (ABNORMAL) FIBRINOGEN ACTIVITY (09/23/2014 4:02 AM CDT) Pathologist [facility] Fibrinogen Clauss 573(H) 170 - 400 mg/dL [facility] Blood specimen (specimen) BLOOD SPECIMEN / Unknown 09/23/2014 4:02 AM CDT 09/23/2014 4:08 AM CDT Petr Arrington MD LAB - COAGULATION OR DERABLES Performing Organization Address [facility] Co de Phone Number [address] [phone] * LDH BLOOD (09/23/2014 4:02 AM CDT) Pathologist [facility] LDH Total 225 125 - 243 Units/L [facility] Blood specimen (specimen) BLOOD SPECIMEN / Unknown 09/23/2014 4:02 AM CDT 09/23/2014 4:08 AM CDT Petr Arrington MD LAB - CHEMISTRY ZELALEM FONTANEZ Performing Organization Address City/[facility]/ZIP Co de Phone Number [address] [phone] * HAPTOGLOBIN (09/23/2014 4:02 AM CDT) Haptoglobin 149 14 - 258 mg/dL [facility] Blood specimen (specimen) BLOOD SPECIMEN / Unknown 09/23/2014 4:02 AM CDT 09/23/2014 4:08 AM CDT Petr Arrington MD LAB - CHEMISTRY ZELALEM FONTANEZ Performing Organization Address [facility] Co de Phone Number [address] [phone] * XR ABDOMEN KUB PORTABLE (09/23/2014 2:07 AM CDT) Anatomical Region Laterality Modality Other Impressions 09/23/2014 2:28 PM CDT Impression: The enteric tube terminates in the gastric body. This report has been dictated by Ashlee Rutherford MD. (Child Care Specialist). Dr. RADHA Jarvis M.D. have personally reviewed and interpreted this examination/study. This report was electronically signed by RADHA GERMAN M.D. on 09/23/2014 2:28 PM . Narrative 09/23/2014 2:28 PM CDT Exam: PX ABDOMEN 1 VW Date: 09/23/2014 clinical 2:07 AM History: tube placement Procedure Note Radha German MD - 10/09/2017 Exam: PX ABDOMEN 1 VW Date: 09/23/2014 clinical 2:07 AM History: tube placement IMPRESSION Impression: The enteric tube terminates in the gastric body. This report has been dictated by Ashlee Rutherford MD. (RadiologyResident). I, Dr. RADHA GERMAN M.D. have personally reviewed and interpreted thisexamination/study. This report was electronically signed by RADHA GERMAN M.D. on 09/23/20142:28 PM . Petr Arrington MD DIAGNOSTIC IMAGING O RDERABLES * CULTURE BLOOD (09/23/2014 1:15 AM CDT) Only the most recent of4 resultswithin the time period is included. Culture Blood No Growth at 5 days [facility] Blood specimen (specimen) BLOOD SPECIMEN / Unknown 09/23/2014 1:15 AM CDT 09/23/2014 1:22 AM CDT Narrative [facility] - 09/28/2014 1:30 AM CDT Specimen Type->Blood Petr Arrington MD LAB - MICROBIOLOGY O RDERABLES [address] [phone] * (ABNORMAL) DIFFERENTIAL MANUAL (09/23/2014 12:19 AM CDT) WBC (corrected for NRBC) 10.9 10 3/uL [facility] Total Cell Count 100 [facility] Neutrophils Absolute Manual 9.16(H) 1.60 - 7.00 10 3/uL [facility] Comment:(BANDS+SEGS) x WBC = NEUT # (ANC) Lymphocyte Absolute Manual 1.09 0.80 - 2.90 10 3/uL [facility] Monocytes Absolute Manual 0.65 0.14 - 0.66 10 3/uL [facility] Band % Manual 2 0 - 10 % [facility] Neutrophil % Manual 82(H) 30 - 60 % [facility] Lymphocyte % Manual 10(L) 20 - 45 % [facility] Monocytes % Manual 6 2 - 10 % [facility] Platelet Estimate Adequate Adequate [facility] Anisocytosis 1+(A) None [facility] Blood specimen (specimen) BLOOD SPECIMEN / Unknown 09/23/2014 12:19 AM CDT 09/23/2014 2:45 AM CDT Petr Arrington MD LAB - HEMATOLOGY ORD ERABLES [facility] [address] [phone] * ECHO W DOPPLER AND COLOR FLOW (09/23/2014 12:00 AM CDT) Anatomical Region Laterality Modality Other 09/23/2014 Petr Arrington MD ECHOCARDIOGRAPHY RAD IANT * LEGIONELLA ANTIGEN URINE (09/22/2014 4:12 PM CDT) Legionella pneumophila Antigen Urine Negative Negative [facility] ([facility]) Comment: A negative result does not rule out the possibility of Legionella infection due to other serogroups or species of Legionella. INTERPRETIVE INFORMATION: Legionella pneumophila Antigen, Urine This assay detects Legionella pneumophila serogroup one (1) antigen. Urine specimen (specimen) 09/22/2014 4:12 PM CDT 09/22/2014 4:28 PM CDT Petr Arrington MD LAB - MICROBIOLOGY O RDDONNA Performing Organization Address City/[facility] Co de Phone Number [facility] ([facility]) * STREP PNEUMONIAE ANTIGEN BLOOD/CSF (09/22/2014 3:59 PM CDT) Streptococcus pneumoniae Antigen Negative Negative [facility]) Other (qualifier value) URINE / Unknown 09/22/2014 3:59 PM CDT 09/22/2014 4:06 PM CDT Narrative [facility] - 09/26/2014 1:21 PM CDT Performed at: [address] [place] [address] [id number] Strategic Planning Analyst: Miguelito Poe MD, Phone: [phone] Petr Arrington MD LAB - MICROBIOLOGY O RDERAARLINE [facility]) * CULTURE SPUTUM+GRAM STAIN (09/22/2014 3:58 PM CDT) Culture Sputum Growth of respiratory lucas. [facility] Gram Stain Moderate Epithelial Cells [facility] Gram Stain Few Polymorphonuclear Cells [facility] Gram Stain Many Gram Negative bacilli [facility] Gram Stain Many Gram Positive bacilli [facility] Gram Stain Many Gram Positive cocci in pairs, chains, and clusters [facility] Sputum specimen (specimen) SPUTUM / Unknown 09/22/2014 3:58 PM CDT 09/22/2014 4:06 PM CDT Narrative [facility] - 09/24/2014 12:27 PM CDT ETT aspirate Specimen Type->Sputum Gram Stains are routinely screened for the presence of Polymorphonuclear Cells. Petr Arrington MD LAB - MICROBIOLOGY O RDERABLES Performing Organization Address City/State/[facility] Co de Phone Number [address] [phone] * CT ANGIO CHEST PULM EMBOLISM (09/22/2014 11:59 AM CDT) Anatomical Region Laterality Modality Chest Other Impressions 09/23/2014 1:40 PM CDT Impression: 1. No evidence of pulmonary embolus. 2. Right mainstem intubation. 3. Extensive bilateral upper and lower lobe consolidation with adjacent areas of scattered groundglass opacity. These findings most likely represent an infectious/inflammatory process. Volume loss of the right upper lobe. Decreased perfusion of the left upper lobe of uncertain etiology. No cavitation. 4. Indeterminate 2.8 cm focus of arterial enhancement in hepatic segment 8. Further evaluation with three-phase MRI of the liver is recommended. 5. Indeterminate 1.8 cm left adrenal gland nodule. 6. Small left pleural effusion. 7. Enlarged pulmonary artery suggesting pulmonary hypertension. Dr. Clement discussed these findings with Dr. Lemus on 09/22/2014 12:48 PM. Dictated by Payam Clement M.D. I, Dr. RADHA GERMAN M.D. have personally reviewed and interpreted this examination/study. This report was electronically signed by RADHA GERMAN M.D. on 09/23/2014 1:40 PM . Narrative 09/23/2014 1:[address] Chest with contrast History: 54-year-old male with altered metal status. Technique: Multislice helical PE protocol Contrast: Intravenous Omnipaque-350, 100 cc Findings: An endotracheal tube terminates at the origin of the right mainstem bronchus. An enteric tube terminates in the proximal stomach. No filling defects are present in the pulmonary arteries to suggest emboli. There are bilateral upper lobe consolidations, left greater than right, as well as extensive left and mild right lower lobe consolidations. There are also scattered groundglass opacities in the left upper and bilateral lower lobes. No pneumothorax or pleural effusion is present. The heart size is normal. There is no pericardial effusion. The left-sided aortic arch is normal. There is an enlarged right paratracheal lymph node measuring 1.4 cm in greatest short axis dimension. Calcified mediastinal and left hilar lymph nodes likely represents sequela of prior granulomatous disease. There is an indeterminate 1.8 cm left adrenal gland nodule. There is a 2.8 cm focus of arterial enhancement with central hypoattenuation in hepatic segment 8 (series 5, image 257). The remainder of the upper abdomen is unremarkable. Median sternotomy wires are intact and well aligned. There is anterior wedging of the T6 vertebral body with approximately 40% height loss anteriorly likely representing a compression deformity of unknown age. Procedure Note Radha German MD - 10/09/2017 CT Chest with contrast History: 54-year-old male with altered metal status. Technique: Multislice helical PE protocol Contrast: Intravenous Omnipaque-350, 100 cc Findings: An endotracheal tube terminates at the origin of the right mainstembronchus. An enteric tube terminates in the proximal stomach. No filling defects are present in the pulmonary arteries to suggestemboli. There are bilateral upper lobe consolidations, left greater thanright, as well as extensive left and mild right lower lobe consolidations.There are also scattered groundglass opacities in the left upper and bilateral lower lobes. No pneumothorax orpleural effusion is present. The heart size is normal. There is no pericardial effusion. Theleft-sided aortic arch is normal. There is an enlarged right paratracheallymph node measuring 1.4 cm in greatest short axis dimension. Calcifiedmediastinal and left hilar lymph nodes likely represents sequela of prior granulomatous disease. There is an indeterminate 1.8 cm left adrenal gland nodule. There is a 2.8cm focus of arterial enhancement with central hypoattenuation in hepaticsegment 8 (series 5, image 257). The remainder of the upper abdomen isunremarkable. Median sternotomy wires are intact and well aligned. There is anterior wedging of the T6 vertebral body with approximately 40%height loss anteriorly likely representing a compression deformity ofunknown age. IMPRESSION Impression: 1. No evidence of pulmonary embolus. 2. Right mainstem intubation. 3. Extensive bilateral upper and lower lobe consolidation with adjacentareas of scattered groundglass opacity. These findings most likelyrepresent an infectious/inflammatory process. Volume loss of the rightupper lobe. Decreased perfusion of the left upper lobe of uncertain etiology. No cavitation. 4. Indeterminate 2.8 cm focus of arterial enhancement in hepatic segment8. Further evaluation with three-phase MRI of the liver is recommended. 5. Indeterminate 1.8 cm left adrenal gland nodule. 6. Small left pleural effusion. 7. Enlarged pulmonary artery suggesting pulmonary hypertension. Dr. Clement discussed these findings with Dr. Lemus on 09/22/2014 12:48PM. Dictated by Payam Clement M.D. I, Dr. RADHA GERMAN M.D. have personally reviewed and interpreted thisexamination/study. This report was electronically signed by RADHA GERMAN M.D. on 09/23/20141:40 PM . Phong Bhatti MD CT ORDERABLES * (ABNORMAL) LACTIC ACID WHOLE BLOOD (09/22/2014 11:39 AM CDT) Lactic Acid Whole Blood 4.3(HH) 0.5 - 3.4 mmol/L [facility] Blood specimen (specimen) BLOOD SPECIMEN / Unknown 09/22/2014 11:39 AM CDT 09/22/2014 11:39 AM CDT Phong Bhatti MD LAB - CHEMISTRY ZELALEM FONTANEZ [facility] Organization Address City/State/ZIP Co de Phone Number [address] [phone] * GLUCOSE - POINT OF CARE (AMB) [facility] (09/22/2014 11:30 AM CDT) Only the most recent of2 resultswithin the time period is included. Phong Bhatti MD LAB - POINT OF CARE ORDERABLES Performing Organization Address City/State/[facility] Co de Phone Number [facility] * (ABNORMAL) DRUG ABUSE PANEL 10-20+ETHANOL URINE NO CONFIRM (09/22/2014 11:13 AM CDT) Amphetamines Screen Urine Negative Negative : < 1000 ng/mL [facility] Barbiturates Screen Urine Negative Negative : < 200 ng/mL [facility] Benzodiazepine Screen Urine Positive(A) Negative : < 200 ng/mL [facility] Comment: Positive urine benzodiazepine screening results should be confirmed by another generally accepted non-immunological method such as gas chromatography or mass spectrometry. Opiates Urine Positive(A) Negative : < 300 ng/mL [facility] Comment: Positive urine opiate screening results should be confirmed by another generally accepted non-immunological method such as gas chromatography or mass spectrometry. Cocaine Metabolites Urine Negative Negative : < 300 ng/mL [facility] Phencyclidine Screen Urine Negative Negative : < 25 ng/ml [facility] Cannabinoids Screen Urine Negative Negative : <50 ng/mL [facility] Methadone Screen Urine Negative Negative : < 300 ng/mL [facility] Urine specimen (specimen) URINE / Unknown 09/22/2014 11:13 AM CDT 09/22/2014 11:22 AM CDT Narrative [facility] - 09/22/2014 11:50 AM CDT The Urine Toxicology Screening Panel does not screen for Propoxyphene, Meprobamate, Carisoprodol, Trazodone, [id number] medications and/or volatiles (Acetone, Isopropanol, Methanol or Ethylene Glycol). Ethanol, Salicylate, Acetaminophen, Tricyclic Antidepressants and several therapeutic drugs may be individually assayed in serum or plasma specimen. Toxicology testing by the [facility] is an aid to medical diagnosis and treatment of patients. No documented chain of custody was maintained. Results are intended to be used for clinical purposes only. Phong Bhatti MD LAB - URINE CHEMISTR Y ORDERABLES [address] [phone] * CULTURE URINE (09/22/2014 11:13 AM CDT) Culture Urine No Growth of >=100 CFU/ml after 48 Hours [facility] Urine specimen (specimen) URINE / Unknown 09/22/2014 11:13 AM CDT 09/22/2014 11:22 AM CDT Narrative [facility] - 09/24/2014 1:04 PM CDT Specimen Type->Urine Phong Bhatti MD LAB - MICROBIOLOGY O RDERABLES Performing Organization Address [facility] Co de Phone Number [address] [phone] * (ABNORMAL) SALICYLATE LEVEL BLOOD (09/22/2014 11:13 AM CDT) Salicylate <5(L) 15 - 30 mg/dL [facility] Blood specimen (specimen) BLOOD SPECIMEN / Unknown 09/22/2014 11:13 AM CDT 09/22/2014 11:22 AM CDT Phong Bhatti MD LAB - CHEMISTRY ZELALEM FONTANEZ Performing Organization Address [facility] Co de Phone Number [address] [phone] * (ABNORMAL) ACETAMINOPHEN LEVEL (09/22/2014 11:13 AM CDT) Acetaminophen 3.0(L) 10.0 - 30.0 mcg/mL [facility] Blood specimen (specimen) BLOOD SPECIMEN / Unknown 09/22/2014 11:13 AM CDT 09/22/2014 11:22 AM CDT Phong Bhatti MD LAB - CHEMISTRY ZELALEM FONTANEZ Performing Organization Address [facility]/ZIP Co de Phone Number [address] [phone] Care Teams Learning Support Teacher Relationship Specialty Start Date End Date Valdo Wu DO [address] [place] [id number] PCP - General 02/16/22
--- OUTSIDE RECORDS SUMMARY | 2024-08-25 01:27 | XMS_ITS | Continuity of Care Document ---
Author Organization [facility] Address [address] [place] [address] Phone Care Team Providers Care Control Engineer Name Role Phone Osman Chauhan MD Unavailable Unavailable Medications Medication Instructions Dosage Effective Dates (start - stop) Status Comments [place] 10 mg-325 mg tablet take 1 tablet by oral route every 8 hours as needed for pain 1 tablet - Active Procedures Procedure Date OFFICE/OUTPATIENT VISIT, EST Advance Directives Directive Yes / No Effective Date File Name No Information Encounters Encounter Description Practice Location Reason(s) For Visit Diagnoses Date Provider Providers Copied on Encounter [facility], [address] [place] [address], [facility], tel:[phone] [facility] No Information 8 Tien Brewer. [address] [place], [place], [facility], . [phone] OFFICE/OUTPA TIENT VISIT, EST [facility], [address] [place] [address], [facility], tel:[phone] *[facility] chronic conditions (chief complaint)W [facility] Inpatient Stay (chief complaint) DDD (degenerative disc disease), lumbarSpinal stenosis of lumbar regionChronic bilateral low back pain without sciaticaDietary counseling and surveillanceAtri al fibrillation 6 Bambi Pandey. [address] [place], [place], [facility], . [phone] Family History Family Member Type Diagnosis Age At Onset No Information Payers Payer name Insurance type Covered democrat ID Authoriza tion(s) No Information Social History Type Description Quantity Date Captured Comments Sex Male Smoking Status No Information Chief Complaint And Reason For Visit No Information Reason For Referral Reason For Referral No Information Plan Of Treatment Date Type Action Status Goal Dietary management education , guidance, and counseling completed Referral Referred To: [facility] Ordered: Referrals: Pain Medicine. [facility]. Location: [facility]. Evaluate and treat ordered Referral Ordered: Referrals: Pain Medicine. Evaluate and treat ordered History Of Present Illness Encounter Date Complaint History Of Prese nt Illness [facility] Inpatient Stay Patient is h ere to follow up from recent [facility] Hospital Stay for Atrial Fib. chronic conditions 1) DDD (degen erative disc disease), lumbar (Chronic.) 2) Spinal stenosis of lumbar region (Chronic.) 3) Chronic bilateral low back pain without sciatica (Chronic.) Patient is here for check up and requesting pain medication be increased since he is having to take them frequently. Functional Status Date Functional Assessmen t No Information Instructions Date Instruction Additional Infor mation Patient has improved and is to continue present treatment. Related to Atrial fibrillation Patient was counsele d on diet and handout availability. Related to Dietary counseling and surveillance Patient was given pr escription for [place] and increased strength to 10/325 but he will be referred to Pain Management for further treatment. Pharmacy called stating patient just filled a [place] script for #120 on 12/18/2015 so the script given today was cancelled and he will have to wait for his pain management appointment for further treatment. He is to return for next visit in 2 months. Related to DDD (degenerative disc disease), lumbar See plan for DDD. Related to Spi nal stenosis of lumbar region See plan for DDD. Related to Chr onic bilateral low back pain without sciatica Dietary management e ducation, guidance, and counseling Related to Dietary counseling and surveillance Assessments Type Assessment Date No Information Patient Care Teams Name Effective Dates (start - stop) Status Members No Information
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
--- OUTSIDE RECORDS SUMMARY | 2024-08-25 01:27 | XMS_ITS | Encounter Summary ---
Author Organization [facility] Facility Care Team Providers Care Tailing Hand Name Role Phone Barbara Chen MD Primary Care Provider [phone] Valdo Wu DO Primary Care Provider [phone] Valdo Wu DO Primary Care Provider [phone] Martell Vasquez MD Unavailable [phone] Unknown, Notinfile Primary Care Provider Unavail able Unknown, Notinfile Primary Care Provider Unavail able Unknown, Notinfile Primary Care Provider Unavail able Unknown, Notinfile Primary Care Provider Unavail able Valdo Wu DO Primary Care Provider [phone] Mona Nieves MD Primary Care Provider Braulio Alexandre DO Unavailable +[phone] Cedric Spence MD Unavailable +- [phone] Luz Maria Burns MD Unavailable Osman Pantoja MD Unavailable [phone] Azar Mccann MD Primary Care Provider [phone] Char Molina RN Unavailable [phone] Ruel Villa MD Unavailable [phone] Encounter Details Date Type Department Care Team (Latest Contact Info) Description 10/25/2017 Orders Only [facility] CLINCONV ProviderIbis MD [address] [place] [address] Social History Tobacco Use Types Packs/Day Years Used Date Smoking Tobacco: Never Assessed Sex and Gender Information Value Date Recorded Sex Assigned at Not on file Legal Sex Male 4:10 AM INDEPENDENT DRIVER Gender Identity Male 10/12/2023 1:45 PM CDT Sexual Orientation Not on file documented as of this encounter Plan of Treatment Not on file documented as of this encounter Procedures Procedure Name Priority Date/Time Associated Diagnosis Comments SCAN - LABS 10/25/2017 12:00 AM CDT documented in this encounter Results * SCAN - LABS (10/25/2017 12:00 AM CDT) Narrative 10/25/2017 12:00 AM CDT Ordered by an unspecified provider. us Historical Provider Final Res ult documented in this encounter Visit Diagnoses Not on filedocumented in this encounter Additional Health Concerns Infection Onset Date Last Indicated Resolved Time COVID: Suspected 02/08/2020 02/09/2020 02/09/2020 9:07 PM CDT Respiratory Infection (GIAN), contact + droplet Comment:IP Review - Patient classified as Low Risk for COVID-19 and has one negative COVID-19 test. Patient meets criteria for COVID-19 isolation discontinuation. Edna Landers, PERCUSSION TEACHER 02/10/2020 Automatically added due to negative COVID-19 result. 02/09/2020 02/09/2020 02/10/2020 7:34 AM C DT COVID: Suspected 01/11/2024 01/11/2024 01/11/2024 8:35 PM CDT documented as of this encounter Care Teams Tailing Hand Relationship Specialty Start Date End Date Barbara [...] Practice 12/08/22 05/30/23 Azar Mccann MD [address] [facility] [address] [place] [address] PCP - General Family Medicine 05/31/23 Martell Vasquez MD [address] [facility] [address] Gas Pipe Layer Cardiology 05/29/19 05/30/23 Braulio Alexandre DO [address] [facility] [address] TRAVIS Lim [facility] [address] [place] [address] Pain Management 03/18/23 Cedric Spence MD [address] [facility] [address], [place] [address] Consulting Physician Interventional Cardiology 03/18/23 [place] [address] [address] [facility] [address] [place] [address] Consulting Physician Endocrinology Diabetes & Metabolism 03/18/23 Osman Pantoja MD [address] [place] [address] Referring Physician Emergency Medicine 04/22/23 Char Molina, KENYA [address] [facility] [address] [place] [address] SHOP Outpatient Furrier Apprentice 08/27/23 08/27/23 Ruel Villa MD [address] [facility] [address] [place] [address] Consulting Physician Clinical Cardiac Electrophysiology 01/15/24 documented as of this encounter
--- OUTSIDE RECORDS SUMMARY | 2024-08-25 01:27 | XMS_ITS | Encounter Summary ---
Author Organization [facility] Facility Care Team Providers Care Mortgage Loan Closer Name Role Phone Barbara Chen MD Primary Care Provider [phone] Valdo Wu DO Primary Care Provider [phone] Valdo Wu DO Primary Care Provider [phone] Martell Vasquez MD Unavailable [phone] Unknown, Notinfile Primary Care Provider Unavail able Unknown, Notinfile Primary Care Provider Unavail able Unknown, Notinfile Primary Care Provider Unavail able Unknown, Notinfile Primary Care Provider Unavail able Valdo Wu DO Primary Care Provider [phone] Mona Nieves MD Primary Care Provider Braulio Alexandre DO Unavailable [phone] Cedric Spence MD Unavailable +- [phone] Luz Maria Burns MD Unavailable Osman Pantoja MD Unavailable [phone] Azar Mccann MD Primary Care Provider [phone] Char Molina RN Unavailable [phone] Ruel Villa MD Unavailable [phone] Encounter Details Date Type Department Care Team (Latest Contact Info) Description 06/02/2016 Orders Only [facility] CLINCONV ProviderIbis MD [address] [place] [address] Social History Tobacco Use Types Packs/Day Years Used Date Smoking Tobacco: Never Assessed Sex and Gender Information Value Date Recorded Sex Assigned at Not on file Legal Sex Male 4:10 AM BINGO CLERK Gender Identity Male 10/12/2023 1:45 PM CDT Sexual Orientation Not on file documented as of this encounter Plan of Treatment Not on file documented as of this encounter Procedures Procedure Name Priority Date/Time Associated Diagnosis Comments CARDIOLOGY REPORT 06/11/2016 12: 00 AM BINGO CLERK CARDIOLOGY REPORT 06/11/2016 12: 00 AM BINGO CLERK CARDIOLOGY REPORT 06/11/2016 12: 00 AM BINGO CLERK documented in this encounter Results * CARDIOLOGY REPORT (06/11/2016 12:00 AM BINGO CLERK) Anatomical Region Laterality Modality Other Narrative 06/11/2016 12:00 AM BINGO CLERK Ordered by an unspecified provider. Historical Provider CV CARDIAC SERVICES PROCE DURES Final Result * CARDIOLOGY REPORT (06/11/2016 12:00 AM BINGO CLERK) Anatomical Region Laterality Modality Other Narrative 06/11/2016 12:00 AM BINGO CLERK Ordered by an unspecified provider. [facility] Provider CV CARDIAC SERVICES PROCE DURES Final Result * CARDIOLOGY REPORT (06/11/2016 12:00 AM BINGO CLERK) Anatomical Region Laterality Modality Other Narrative 06/11/2016 12:00 AM BINGO CLERK Ordered by an unspecified provider. [facility] Provider CV CARDIAC SERVICES PROCE DURES Final [...] criteria for COVID-19 isolation discontinuation. Edna Landers, CHAINSAW MECHANIC 02/10/2020 Automatically added due to negative COVID-19 result. 02/09/2020 02/09/2020 02/10/2020 7:34 AM C DT COVID: Suspected 01/11/2024 01/11/2024 01/11/2024 8:35 PM CDT documented as of this encounter Care Teams Mortgage Loan Closer Relationship Specialty Start Date End Date Barbara [...] Practice 12/08/22 05/30/23 Azar Mccann MD [address] [address] PCP - General Family Medicine 05/31/23 Martell Vasquez MD [address] [facility] [address] V[address] [address] Nozzle Worker Cardiology 05/29/19 05/30/23 Braulio Alexandre DO [address] [facility] [address] ROBLES A CHRISTINA [address] [place] [address] Pain Management 03/18/23 Cedric Spence MD [address] [facility] [address] [place], [place] [address] Consulting Physician Interventional Cardiology 03/18/23 [place] [address] [address] [facility] [address] [place] [address] Consulting Physician Endocrinology Diabetes & Metabolism 03/18/23 Osman Pantoja MD [address] [place] [address] Referring Physician Emergency Medicine 04/22/23 Char Molina, RN [address] [facility] [address] [place], [place] [address] SHOP Outpatient Receptionist 08/27/23 08/27/23 Ruel Villa MD [address] [facility] [address] [place] [address] Consulting Physician Clinical Cardiac Electrophysiology 01/15/24 documented as of this encounter
--- OUTSIDE RECORDS SUMMARY | 2024-08-25 01:27 | XMS_ITS | Encounter Summary ---
Author Organization [facility] Facility Care Team Providers Care Bell Hole Digger Name Role Phone Barbara Chen MD Primary Care Provider [phone] Valdo Wu DO Primary Care Provider [phone] Valdo Wu DO Primary Care Provider [phone] Martell Vasquez MD Unavailable [phone] Unknown, Notinfile Primary Care Provider Unavail able Unknown, Notinfile Primary Care Provider Unavail able Unknown, Notinfile Primary Care Provider Unavail able Unknown, Notinfile Primary Care Provider Unavail able Valdo Wu DO Primary Care Provider [phone] Mona Nieves MD Primary Care Provider Braulio Alexandre DO Unavailable [phone] Cedric Spence MD Unavailable [phone]- [phone] Luz Maria Burns MD Unavailable Osman Pantoja MD Unavailable [phone] Azar Mccann MD Primary Care Provider [phone] Char Molina RN Unavailable [phone] Ruel Villa MD Unavailable [phone] Encounter Details Date Type Department Care Team (Latest Contact Info) Description 06/01/2016 Orders Only [facility] CLINCONV ProviderIbis MD [address] [place] [address] Social History Tobacco Use Types Packs/Day Years Used Date Smoking Tobacco: Never Assessed Sex and Gender Information Value Date Recorded Sex Assigned at Not on file Legal Sex Male 4:10 AM OUTSIDE SALES REPRESENTATIVE Gender Identity Male 10/12/2023 1:45 PM CDT Sexual Orientation Not on file documented as of this encounter Plan of Treatment Not on file documented as of this encounter Procedures Procedure Name Priority Date/Time Associated Diagnosis Comments CARDIOLOGY REPORT 06/11/2016 12: 00 AM OUTSIDE SALES REPRESENTATIVE documented in this encounter Results * CARDIOLOGY REPORT (06/11/2016 12:00 AM OUTSIDE SALES REPRESENTATIVE) Anatomical Region Laterality Modality Other Narrative 06/11/2016 12:00 AM OUTSIDE SALES REPRESENTATIVE Ordered by an unspecified provider. us Historical Provider CV CARDIAC SERVICES RENATO REGAN Final Result documented in this encounter Visit Diagnoses Not on filedocumented in this encounter Additional Health Concerns Infection Onset Date Last Indicated Resolved Time COVID: Suspected 02/08/2020 02/09/2020 02/09/2020 9:07 PM CDT Respiratory Infection (GIAN), contact + droplet Comment:IP Review - Patient classified as Low Risk for COVID-19 and has one negative COVID-19 test. Patient meets criteria for COVID-19 isolation discontinuation. Edna Landers, MANAGER COMBINATION 02/10/2020 Automatically added due to negative COVID-19 result. 02/09/2020 02/09/2020 02/10/2020 7:34 AM C DT COVID: Suspected 01/11/2024 01/11/2024 01/11/2024 8:35 PM CDT documented as of this encounter Care Teams Bell Hole Digger Relationship Specialty Start Date End Date Barbara [...] 05/30/23 Azar Mccann MD [address] [facility] [address] [place] [address] PCP - General Family Medicine 05/31/23 Martell Vasquez MD [address] [facility] [address] V[address] [address] Information Support Project Manager Cardiology 05/29/19 05/30/23 Braulio Alexandre DO [address] [facility] [address] TRAVIS Lim [address] [address] Pain Management 03/18/23 Cedric Spence MD [address] [facility] [address], [place] [address] Consulting Physician Interventional Cardiology 03/18/23 [place] [address] [address] [facility] [address] [place] [address] Consulting Physician Endocrinology Diabetes & Metabolism 03/18/23 Osman Pantoja MD [address] [place] [address] Referring Physician Emergency Medicine 04/22/23 Char Molina, KENYA [address] [facility] [address] [place] [address] SHOP Outpatient Technical Customer Support Specialist 08/27/23 08/27/23 Ruel Villa MD [address] [facility] [address] [place] [address] Consulting Physician Clinical Cardiac Electrophysiology 01/15/24 documented as of this encounter
--- OUTSIDE RECORDS SUMMARY | 2024-08-25 01:27 | XMS_ITS | Encounter Summary ---
Author Organization [facility] Healthcare Address [address] [place] [address] Care Team Providers Care Stave Cutter Name Role Phone Braulio Alexandre DO Unavailable [phone] Cedric Spence MD Unavailable [phone]- [phone] Luz Maria Burns MD Unavailable Osman Pantoja MD Unavailable Azar Mccann MD Primary Care Provider [phone] Char Molina RN Unavailable [phone] Ruel Villa MD Unavailable [phone] Encounter Details Date Type Department Care Team (Late st Contact Info) Description 08/26/2023 Telephone [facility] Medical Group Primary Care at [address] [address] Azar Mccann MD [address] [place] [address] Social History Tobacco Use Types Packs/Day Years Used Date Smoking Tobacco: Former Cigarettes 1 30 0 10/08/1987 - 10/07/2017 Smokeless Tobacco: Current Chew [facility] Utilities Answer Date Recorded In the past 12 months has [employer] electric, gas, oil, or water company threatened to shut off services in your home? Patient declined 08/27/2023 Social Connection and Isolation Panel [NHANES] A nswer Date Recorded In a typical week, how many times do you talk on the phone with family, friends, or neighbors? Patient declined 08/27/2023 How often do you get togethe r with friends or relatives? Patient declined 08/27/2023 How often do you attend mosque or uatsdin serv ices? Patient declined 08/27/2023 Do you belong to any clubs o r organizations such as mosque groups, unions, fraternal or athletic groups, or school groups? Patient declined 08/27/2023 How often do you attend meet ings of the clubs or organizations you belong to? Patient declined 08/27/2023 Are you , , di vorced, , never , or living with a partner? Patient declined 08/27/2023 AUDIT-C Answer Date Recorded Q1: How often [...] like food, housing, medical care, and heating? Patient declined 08/27/2023 PHQ-2 Answer Date Recorded PHQ-2 Total Score (If total score is 3 or more points, staff should administer the PHQ-9) 2 05/31/2023 Hunger Vital Sign Answer Date Recorded Within the past 12 months, y ou worried that your food would run out before you got the money to buy more. Patient declined Within the past 12 months, t he food you bought just didn't last and you didn't have money to get more. Patient declined PRAPARE - Transportation Answer Date Re corded In the past 12 months, has l ack of transportation kept you from medical appointments or from getting medications? Patient declined 08/27/2023 In the past 12 months, has l ack of transportation kept you from meetings, work, or from getting things needed for daily living? Patient declined 08/27/2023 Housing Stability Vital Sign [...] place to sleep or slept in a nursing home (including now)? Patient declined 08/27/2023 Personal Safety Answer Date Recorded Have you ever been in or are you currently in a harmful physical or emotional relationship or is someone making you feel afraid or unsafe? Denies 08/22/2023 Sex and Gender Information Value Date Recorded Sex Assigned at Not on file Legal Sex Male 4:10 AM FLEET MANAGER Gender Identity Male 10/12/2023 1:45 PM CDT Sexual Orientation Not on file documented as of this encounter Plan of Treatment Not on file documented as of this encounter Visit Diagnoses Not on filedocumented in this encounter Additional Health Concerns Infection Onset Date Last Indicated Resolved Time COVID: Suspected 01/11/2024 01/11/2024 01/11/2024 8:35 PM CDT documented as of this encounter Care Teams Stave Cutter Relationship Specialty Start Date End Date Azar Mccann MD [address] [facility] [address] [place], [place] [id number] PCP - General Family Medicine 05/31/23 Braulio Alexandre DO [address] [facility] [address] Lim [facility] [address] [place] [address] Pain Management 03/18/23 Cedric Spence MD [address] [facility] [address], [place] [address] Consulting Physician Interventional Cardiology 03/18/23 [place] [address] [address] [facility] [address] [place] [address] Consulting Physician Endocrinology Diabetes & Metabolism 03/18/23 Osman Pantoja MD [address] [place] [address] Referring Physician Emergency Medicine 04/22/23 Char Molina, KENYA [address] [facility] [address] [place] [address] SHOP Outpatient Sidewalk Inspector 08/27/23 08/27/23 Ruel Villa MD [address] [facility] [address] [address] Consulting Physician Clinical Cardiac Electrophysiology 01/15/24 documented as of this encounter
--- OUTSIDE RECORDS SUMMARY | 2024-08-25 01:27 | XMS_ITS | Encounter Summary ---
Author Organization [facility] Facility Care Team Providers Care Palliative Care Physician Name Role Phone Barbara Chen MD Primary Care Provider [phone] Valdo Wu DO Primary Care Provider [phone] Valdo Wu DO Primary Care Provider [phone] Martell Vasquez MD Unavailable [phone] Unknown, Notinfile Primary Care Provider Unavail able Unknown, Notinfile Primary Care Provider Unavail able Unknown, Notinfile Primary Care Provider Unavail able Unknown, Notinfile Primary Care Provider Unavail able Valdo Wu DO Primary Care Provider [phone] Mona Nieves MD Primary Care Provider Braulio Alexandre DO Unavailable [phone] Cedric Spence MD Unavailable [phone] Luz Maria Burns MD Unavailable Osman Pantoja MD Unavailable [phone] Azar Mccann MD Primary Care Provider [phone] Char Molina RN Unavailable [phone] Ruel Villa MD Unavailable [phone] Encounter Details Date Type Department Care Team (Latest Contact Info) Description 06/05/2016 Orders Only [facility] CLINCONV ProviderIbis MD [address] [place] [address] Social History Tobacco Use Types Packs/Day Years Used Date Smoking Tobacco: Never Assessed Sex and Gender Information Value Date Recorded Sex Assigned at Not on file Legal Sex Male 4:10 AM BRIM BUSTER Gender Identity Male 10/12/2023 1:45 PM CDT Sexual Orientation Not on file documented as of this encounter Plan of Treatment Not on file documented as of this encounter Procedures Procedure Name Priority Date/Time Associated Diagnosis Comments CARDIOLOGY REPORT 06/11/2016 12: 00 AM BRIM BUSTER documented in this encounter Results * CARDIOLOGY REPORT (06/11/2016 12:00 AM BRIM BUSTER) Anatomical Region Laterality Modality Other Narrative 06/11/2016 12:00 AM BRIM BUSTER Ordered by an unspecified provider. us Historical [...] criteria for COVID-19 isolation discontinuation. Edna Landers, MONUMENT SETTER 02/10/2020 Automatically added due to negative COVID-19 result. 02/09/2020 02/09/2020 02/10/2020 7:34 AM C DT COVID: Suspected 01/11/2024 01/11/2024 01/11/2024 8:35 PM CDT documented as of this encounter Care Teams Palliative Care Physician Relationship Specialty Start Date End Date Barbara [...] 05/30/23 Azar Mccann MD [address] [facility] [address] [place] [address] PCP - General Family Medicine 05/31/23 Martell Vasquez MD [address] [facility] [address] [address] Emery Wheel Worker Cardiology 05/29/19 05/30/23 Braulio Alexandre DO [address] [facility] [address] TRA[address] Lim [address] [address] Pain Management 03/18/23 Cedric Spence MD [address] [facility] [address], [place] [address] Consulting Physician Interventional Cardiology 03/18/23 [place] [address] [address] [facility] [address] [place] [address] Consulting Physician Endocrinology Diabetes & Metabolism 03/18/23 Osman Pantoja MD [address] [place] [address] Referring Physician Emergency Medicine 04/22/23 Char Molina, KENYA 45[address] [facility] [address] [place] [address] SHOP Outpatient Trainmaster 08/27/23 08/27/23 Ruel Villa MD [address] [facility] [address] [place] [address] Consulting Physician Clinical Cardiac Electrophysiology 01/15/24 documented as of this encounter
[2024-08-25 08:35] VITALS: BP 110/61; PULSE 70; RESP 18; TEMP 35.6; O2SAT 95; BMI 42.5
--- NOTE | 2024-08-25 08:59 | P.HP_ITS ---
History of Present Illness History of Present Illness Consent: Risks, benefits, and alternatives have been discussed and questions answered. Patient agrees to proceed with procedure. Chief complaint: Personal hx colon polyps Narrative: John Peters is a 64 year old male with colon polyp in 2021 but also suboptimal prep Review of Systems Review of Systems: All systems reviewed & are unremarkable except as noted in HPI and below PMFSH Past Medical History Medical History (Updated 08/25/24 @ 08:59 by Tulio Lawton MD) Colon polyp Pacemaker 01/10/24; [facility] Right-sided congestive heart failure H/O: substance abuse Brother reports patient is an addict, previously abused cocaine, alcohol and opiates. Cardiomyopathy Neuropathy COPD (chronic obstructive pulmonary disease) Osteoarthritis Congestive heart failure Echocardiogram on 03/27/2021 showed an enlarged left ventricular chamber with normal LV systolic function and an estimated EF of 55 to 60%, diastolic dysfunction, moderately enlarged right ventricular chamber, reduced RV systolic function, biatrial enlargement, mild regurgitation of annuloplasty ring of a prosthetic mitral valve, and mild pulmonary hypertension with an estimated pulmonary arterial systolic pressure of 44 mmHg. MRSA colonization Chronic anemia Depression with anxiety Hyperthyroidism Type 2 diabetes mellitus Hemoglobin A1c was 6.4% on 03/26/2021. Chronic respiratory failure with hypoxia, on home oxygen therapy 3 L nasal cannula with rest p.r.n. 4 L bleed in at nighttime. Obstructive sleep apnea Approved for trilogy unit in February 2020. Coronary artery disease (~2001) Status post three-vessel bypass. Valvular heart disease Status post mitral valve repair. Hyperlipidemia Essential hypertension Chronic atrial fibrillation With failed cardiac ablation and cardioversion on several occasions. On long-term Coumadin for stroke prophylaxis. Pharmacy Resident is Dr. Vasquez at [facility]. Cerebrovascular accident (~05/2018) With global aphasia, much improved with mild expressive aphasia. Type 2 diabetes mellitus without complication, without long-term current use of insulin Surgical History Surgical History History of coronary artery bypass graft x 3 History of mitral valve repair Family History Family History Father Family history of cardiovascular disease Family history of malignant neoplasm of bone Mother Family history of malignant neoplasm Sibling Family history of cardiovascular disease Social History Social History Social History: He lives alone and is retired from [employer] business. Surrogate decision maker: Alton Peters, brother. 3 daughters Code status: Full code. Smoking packs per day: 1.5 Smoking cigarettes per day: 30.0 Years smoked: 30 Smoking pack-years: 45.00 Smoking status: Former smoker Tobacco type: cigarettes Smokeless tobacco user: snuff Second hand tobacco smoke exposure: No Additional smoking assessment comments: currently uses snuff Alcohol intake: former Alcohol use details: recovering alcoholic since 1996, rare occasional single beer Substance use: former Substance use type: crack/cocaine and prescription drug Last use: Former use of cocaine Do You Feel Safe in your Home?: Yes Lack of Transportation: YES Lack of Food: Sometimes True Current Housing: I Have Housing Concerned About Future Housing: No Difficulty Paying Gas/Electric Bills: YES Difficulty Paying for Meds: YES Currently Unemployed: No Education: Grade School Difficulty w/ Childcare or Family Care: No Living arrangements: with family Additional living arrangements comments: Patient lives in his own apartment in [place]. Additional occupation/education comments: On disability. 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 Gender identity (if verbalized by the patient): Male Spiritual care concerns: No Meds Home Medications and Allergies Home Medications ?Medication ?Instructions ?Recorded ?Confirmed ?Type metformin 500 mg tablet 1,000 mg (2 x 500 mg) PO Q12H #360 04/17/22 08/25/24 Rx tabs apixaban 5 mg tablet (Eliquis) 5 mg PO BID #180 tabs 06/11/22 08/25/24 Rx empagliflozin 25 mg tablet 25 mg PO DAILY #90 tabs 07/20/22 08/25/24 Rx (Jardiance) atorvastatin 40 mg tablet 40 mg PO QHS #90 tabs 09/24/22 08/25/24 Rx trazodone 50 mg tablet 50 mg PO HS 01/17/23 08/25/24 History clopidogrel 75 mg tablet 75 mg PO QAM #30 tabs 06/25/23 08/25/24 Rx nitroglycerin 0.4 mg sublingual 0.4 mg sublingual Q5MIN PRN Chest 06/25/23 05/01/24 Rx tablet (Nitrostat) Pain #60 tabs baclofen 10 mg tablet 10 mg PO BID 08/15/23 08/25/24 History methimazole 5 mg tablet 20 mg PO DAILY 08/15/23 08/25/24 History pregabalin 100 mg capsule 100 mg PO BID 08/15/23 08/25/24 History amiodarone 200 mg tablet 200 mg PO DAILY 01/11/24 08/25/24 History bumetanide 2 mg tablet 2 mg PO BID 01/11/24 08/25/24 History metoprolol succinate 100 mg 100 mg PO QAM 01/11/24 08/25/24 History tablet,extended release 24 hr (Toprol XL) sacubitril 24 mg-valsartan 26 mg 0.5 tablet PO BID 01/11/24 08/25/24 History tablet (Entresto) tirzepatide 2.5 mg/0.5 mL 2.5 mg subcut WEEKLY 01/11/24 08/18/24 History subcutaneous pen injector (Mounjaro) naloxone 4 mg/actuation nasal 4 mg intranasal Q2M PRN opioid 02/04/24 Rx spray (Narcan) overdose #2 ea albuterol sulfate 90 mcg/actuation 2 puff inhalation Q4H PRN 05/01/24 05/01/24 History aerosol inhaler Shortness Of Breath Or Wheezing fluticasone propionate 50 2 spray intranasal DAILY PRN 05/01/24 05/01/24 History mcg/actuation nasal RHINITIS spray,suspension hydrocodone 5 mg-acetaminophen 325 1 tablet PO BID PRN Pain 05/01/24 05/01/24 History mg tablet insulin glargine 100 unit/mL (3 8 unit subcut HS 05/01/24 08/25/24 History mL) subcutaneous pen (Lantus Solostar U-100 Insulin) lidocaine 5 % topical patch 1 patch topical DIRECTED PRN 05/01/24 05/01/24 History Pain peg 3350-electrolytes 236 240 ml PO Q10M #4,000 mL 05/01/24 Rx gram-22.74 gram-6.74 gram-5.86 gram solution (Golytely) semaglutide 14 mg tablet (Rybelsus) 14 mg PO DAILY 05/01/24 08/25/24 History spironolactone 25 mg tablet 25 mg PO DAILY 05/01/24 08/25/24 History ondansetron HCl 4 mg tablet 4 mg PO Q6H PRN Nausea And 05/08/24 Rx Vomiting #4 tabs atorvastatin 80 mg tablet 80 mg PO QPM 08/18/24 08/25/24 History tirzepatide (weight loss) 7.5 7.5 mg subcut WEEKLY 08/18/24 08/25/24 History mg/0.5 mL subcutaneous pen injector (Zepbound) Allergies Allergy/AdvReac Type Severity Reaction Status Date / Time morphine AdvReac Intermediate Itching Verified 08/25/24 08:44 Vital Signs Vital Signs - 24 hr 08/25/24 08:35 Temperature 96.0 F L Pulse Rate 70 Respiratory Rate 18 Blood Pressure 110/61 Pulse Oximetry 95 Oxygen Delivery Room Air Exam Const: General: comfortable and no acute distress HENMT: Face/Nose/Sinus: Normal nares present Eyes: General: appearance normal, both eyes and all related structures Neck: Neck: no JVD Resp: Auscultation: clear to auscultation bilaterally Cardio: Rate: regular rate Rhythm: regular rhythm GI: Inspection: non-distended GI Palp: Yes Soft to palpation Skin: General skin exam: normal color Neuro: Speech: normal speech Extrem: General: normal to inspection Psych: Mental Status: mental status grossly normal Assessment and Plan Assessment and plan (1) Colon polyp: Code(s): K63.5 - Polyp of colon Status: Acute Assessment and Plan: colonoscopy
[2024-08-25] MEDS: LACTATED RINGERS 1,000 ML 150 ML IV CONT (09:04)
[2024-08-25 09:07] LABS: Glucose Point of Care 133 mg/dl (65-105)
--- NOTE | 2024-08-25 09:08 | P.PNAN_ITS ---
Anes - Initial Pre Proc Eval Procedure: Operation Date: 08/25/24 10:00 Proposed Procedures p Colonoscopy - Tulio Lawton MD Date/Time: 08/25/24 09:08 Surgeon: Tulio Lawton MD Pre Op Diagnosis: Personal hx colon polyps Patient Data Age: 64 Gender: M Height: 1.73 m Weight: 127 kg Last Vital Signs Temp 35.6 C L 08/25/24 08:35 Pulse 70 08/25/24 08:35 Resp 18 08/25/24 08:35 BP 110/61 08/25/24 08:35 Pulse Ox 95 08/25/24 08:35 O2 Del Method Room Air 08/25/24 08:35 Allergies Allergy/AdvReac Type Severity Reaction Status Date / Time morphine AdvReac Intermediate Itching Verified 08/25/24 08:44 Home Medications ?Medication ?Instructions ?Recorded ?Confirmed ?Type metformin 500 mg tablet 1,000 mg (2 x 500 mg) PO Q12H #360 04/17/22 08/25/24 Rx tabs apixaban 5 mg tablet (Eliquis) 5 mg PO BID #180 tabs 06/11/22 08/25/24 Rx empagliflozin 25 mg tablet 25 mg PO DAILY #90 tabs 07/20/22 08/25/24 Rx (Jardiance) atorvastatin 40 mg tablet 40 mg PO QHS #90 tabs 09/24/22 08/25/24 Rx trazodone 50 mg tablet 50 mg PO HS 01/17/23 08/25/24 History clopidogrel 75 mg tablet 75 mg PO QAM #30 tabs 06/25/23 08/25/24 Rx nitroglycerin 0.4 mg sublingual 0.4 mg sublingual Q5MIN PRN Chest 06/25/23 05/01/24 Rx tablet (Nitrostat) Pain #60 tabs baclofen 10 mg tablet 10 mg PO BID 08/15/23 08/25/24 History methimazole 5 mg tablet 20 mg PO DAILY 08/15/23 08/25/24 History pregabalin 100 mg capsule 100 mg PO BID 08/15/23 08/25/24 History amiodarone 200 mg tablet 200 mg PO DAILY 01/11/24 08/25/24 History bumetanide 2 mg tablet 2 mg PO BID 01/11/24 08/25/24 History metoprolol succinate 100 mg 100 mg PO QAM 01/11/24 08/25/24 History tablet,extended release 24 hr (Toprol XL) sacubitril 24 mg-valsartan 26 mg 0.5 tablet PO BID 01/11/24 08/25/24 History tablet (Entresto) tirzepatide 2.5 mg/0.5 mL 2.5 mg subcut WEEKLY 01/11/24 08/18/24 History subcutaneous pen injector (Mounjaro) naloxone 4 mg/actuation nasal 4 mg intranasal Q2M PRN opioid 02/04/24 Rx spray (Narcan) overdose #2 ea albuterol sulfate 90 mcg/actuation 2 puff inhalation Q4H PRN 05/01/24 05/01/24 History aerosol inhaler Shortness Of Breath Or Wheezing fluticasone propionate 50 2 spray intranasal DAILY PRN 05/01/24 05/01/24 History mcg/actuation nasal RHINITIS spray,suspension hydrocodone 5 mg-acetaminophen 325 1 tablet PO BID PRN Pain 05/01/24 05/01/24 History mg tablet insulin glargine 100 unit/mL (3 8 unit subcut HS 05/01/24 08/25/24 History mL) subcutaneous pen (Lantus Solostar U-100 Insulin) lidocaine 5 % topical patch 1 patch topical DIRECTED PRN 05/01/24 05/01/24 History Pain peg 3350-electrolytes 236 240 ml PO Q10M #4,000 mL 05/01/24 Rx gram-22.74 gram-6.74 gram-5.86 gram solution (Golytely) semaglutide 14 mg tablet (Rybelsus) 14 mg PO DAILY 05/01/24 08/25/24 History spironolactone 25 mg tablet 25 mg PO DAILY 05/01/24 08/25/24 History ondansetron HCl 4 mg tablet 4 mg PO Q6H PRN Nausea And 05/08/24 Rx Vomiting #4 tabs atorvastatin 80 mg tablet 80 mg PO QPM 08/18/24 08/25/24 History tirzepatide (weight loss) 7.5 7.5 mg subcut WEEKLY 08/18/24 08/25/24 History mg/0.5 mL subcutaneous pen injector (Zepbound) Laboratory Tests 08/25/24 08:53 POC Capillary Glucose 133 H mg/dl (65-105) Patient hx anesthesia problems: none Family hx anesthesia problems: none Results Review: All pre-operative results and documents have been reviewed as part of the pre- operative evaluation. [facility] Past Medical History Medical History Colon polyp Pacemaker 01/10/24; [facility] Right-sided congestive heart failure H/O: substance abuse Brother reports patient is an addict, previously abused cocaine, alcohol and opiates. Cardiomyopathy Neuropathy COPD (chronic obstructive pulmonary disease) Osteoarthritis Congestive heart failure Echocardiogram on 03/27/2021 showed an enlarged left ventricular chamber with normal LV systolic function and an estimated EF of 55 to 60%, diastolic dysfunction, moderately enlarged right ventricular chamber, reduced RV systol ic function, biatrial enlargement, mild regurgitation of annuloplasty ring of a prosthetic mitral valve, and mild pulmonary hypertension with an estimated pulmonary arterial systolic pressure of 44 mmHg. MRSA colonization Chronic anemia Depression with anxiety Hyperthyroidism Type 2 diabetes mellitus Hemoglobin A1c was 6.4% on 03/26/2021. Chronic respiratory failure with hypoxia, on home oxygen therapy 3 L nasal cannula with rest p.r.n. 4 L bleed in at nighttime. Obstructive sleep apnea Approved for trilogy unit in February 2020. Coronary artery disease (~2001) Status post three-vessel bypass. Valvular heart disease Status post mitral valve repair. Hyperlipidemia Essential hypertension Chronic atrial fibrillation With failed cardiac ablation and cardioversion on several occasions. On long-term Coumadin for stroke prophylaxis. 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 Cerebrovascular accident (~05/2018) With global aphasia, much improved with mild expressive aphasia. Type 2 diabetes mellitus without complication, without long-term current use of insulin Surgical History Surgical History History of coronary artery bypass graft x 3 History of mitral valve repair Family History Family History Father Family history of cardiovascular disease Family history of malignant neoplasm of bone Mother Family history of malignant neoplasm Sibling Family history of cardiovascular disease Social History Social History Social History: He lives alone and is retired from [employer] business. Surrogate decision maker: Alton Peters, brother. 3 daughters Code status: Full code. Smoking packs per day: 1.5 Smoking cigarettes per day: 30.0 Years smoked: 30 Smoking pack-years: 45.00 Smoking status: Former smoker Tobacco type: cigarettes Smokeless tobacco user: snuff Second hand tobacco smoke exposure: No Additional smoking assessment comments: currently uses snuff Alcohol intake: former Alcohol use details: recovering alcoholic since 1996, rare occasional single beer Substance use: former Substance use type: crack/cocaine and prescription drug Last use: Former use of cocaine Do You Feel Safe in your Home?: Yes Lack of Transportation: YES Lack of Food: Sometimes True Current Housing: I Have Housing Concerned About Future Housing: No Difficulty Paying Gas/Electric Bills: YES Difficulty Paying for Meds: YES Currently Unemployed: No Education: Grade School Difficulty w/ Childcare or Family Care: No Living arrangements: with family Additional living arrangements comments: Patient lives in his own apartment in [place]. Additional occupation/education comments: On disability. 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 Gender identity (if verbalized by the patient): Male Spiritual care concerns: No Anes - Eval Final PreProcedure Day of Procedure 08/25/24 09:08 Patient weight: morbidly obese Heart: regular rate and rhythm (paced) Lungs: decreased breath sounds Airway: Mallampati scale class IV and special considerations large neck, large tongue, poor opening and poor extension Neurological: alert and oriented Last oral intake: >/= 8 hours ASA classification: IV Emergent: no Anesthetic plan: proceed Anesthesia type and monitoring: monitored anesthesia care Results Review: All pre-operative results and documents have been reviewed as part of the pre- operative evaluation. Informed Consent: The patient's anesthetic plan of minimal sedation and its attendant risks including and benefits were discussed with the patient/family/POA. Questions were solicited and answers provided to the satisfaction of the patient/family/POA.
[2024-08-25 09:24] VITALS: BP 85/48; PULSE 71; RESP 16; O2SAT 97
[2024-08-25 09:34] VITALS: BP 84/41; PULSE 70; RESP 14; O2SAT 97
[2024-08-25 09:37] LABS: Glucose Point of Care 135 mg/dl (65-105)
[2024-08-25 09:44] VITALS: BP 112/59; PULSE 72; RESP 12; O2SAT 97
== END 2024-08-25 10:20 | disposition home or self-care (01) ==
PROVIDERS: PCP Family Medicine; Visit Provider Internal Medicine Gastroenterology
PROC: 0DJD8ZZ Inspection of Lower Intestinal Tract, Via Natural or Artificial Opening Endoscopic (ICD-10-PCS; CPT 45378; principal; 2024-08-25 10:00)
DX: Z12.11 Encounter for screening for malignant neoplasm of colon (principal); D12.2 Benign neoplasm of ascending colon; D12.4 Benign neoplasm of descending colon; D12.0 Benign neoplasm of cecum; D12.8 Benign neoplasm of rectum; E11.9 Type 2 diabetes mellitus without complications; Z87.891 Personal history of nicotine dependence; E66.01 Morbid (severe) obesity due to excess calories; Z68.41 Body mass index [BMI] 40.0-44.9, adult
CPT/HCPCS: 45385; 82948; 88305; J2704; J7120

== ENCOUNTER 2024-10-13 02:32 | Observation (INO) | payer MEDICARE, MEDICAID, SELFPAY ==
[2024-10-13] VITALS (11 sets, daily range): BP systolic 99–143; BP diastolic 57–85; PULSE 69–70; RESP 12–22; TEMP 36.4–36.9; O2SAT 91–97; BMI 41.5
--- NOTE | ~2024-10-13 | XR_ITS ---
Portable chest x-ray Comparison: 01/11/2024 Clinical History: Chest pain Findings: Lungs are clear, without focal consolidation or pleural effusion. Cardiomediastinal silho uette is stable, with pacemaker device. Bones and soft tissues are unremarkable. Impression: Clear lungs. Reviewed, dictated and finalized at location . Impression: Clear lungs.
--- NOTE | 2024-10-13 02:39 | ECG_ITS ---
Test Date: 2024-10-13 02:53:58 Measurements Intervals Sully Rate: 69 P: 136 NC: 77 QRS: -86 QRSD: 138 T: 70 QT: 487 QTc: 525 Interpretive Statements ELECTRONIC VENTRICULAR PACEMAKER BASELINE ARTIFACT- I, II, III, AVR, AVL, AVF, V1-V6 NO FURTHER INTERPRETATION IS POSSIBLE ATYPICAL ECG Compared to ECG 02/04/2024 01:59:07 No significant changes Electronically Signed On 10-13-2024 06:20:50 CDT by Charli Griffiths D.O.
[2024-10-13 03:04] LABS: Basophils Absolute Auto 0.1 K/mm3 (0.0-0.1); Basophils Percent Auto 0.9 % (0.2-1.2); Eosinophils Absolute Auto 0.4 K/mm3 (0-0.3); Eosinophils Percent Auto 5.6 % (0-4.4); Hematocrit 47.5 % (42.0-52.0); Hemoglobin 14.9 g/dL (14.0-18.0); Immature Granulocyte Absolute 0.03 K/mm3 (0.00-0.031); Immature Granulocyte Percent A 0.4 % (0-0.5); Lymphocytes Absolute Auto 1.38 K/mm3 (0.9-3.2); Lymphocytes Percent Auto 17.7 % (18.3-44.2); Mean Corpuscular HGB Conc 31.4 g/dl (32-36); Mean Corpuscular Hemoglobin 29.3 pg (26-34); Mean Corpuscular Volume 93.3 fl (80-100); Mean Platelet Volume 9.7 fl (7.4-10.4); Monocytes Absolute Auto 0.7 K/mm3 (0.1-0.6); Monocytes Percent Auto 9.5 % (2.6-8.5); Neutrophils Absolute Auto 5.1 K/mm3 (1.3-6.7); Neutrophils Percent Auto 65.9 % (45.5-73.1); Platelet Count Result 184 k/mm3 (150-375); Red Blood Count 5.09 M/mm3 (4.6-6.20); Red Cell Distribution Width 15.1 % (11.5-14.5); White Blood Count 7.8 K/mm3 (4.5-10.0)
--- NOTE | 2024-10-13 03:05 | ED_ITS ---
HPI - Chest Pain General Chief Complaint: Chest Pain Stated Complaint: chest discomfort/panic attack Time Seen by Provider: 10/13/24 02:32 History of Present Illness HPI narrative: 64-year-old male with a past medical history including CHF, atrial fibrillation status post ablation with resultant pacemaker, history of prior stroke. He is chronically anticoagulated with Xarelto. He also has a history of generalized anxiety that he takes Xanax for. Patient presents to the emergency room with chief complaint of feeling a panic attack. Patient states he has had recurrent panic attacks for several months and feels very similar. States he feels chest pain but no chest pressure. No difficulty breathing, abdominal pain, nausea, vomiting, neck pain. Patient denies any injury trauma. EMS bringing the patient informs me in provides collateral formation that patient has called numerous times for panic and anxiety attacks and usually does not get transported after their initial evaluation but today he wanted to go the ER. Related Data Home Medications ?Medication ?Instructions ?Recorded ?Confirmed ?Last Taken ?Type trazodone 50 mg tablet 50 mg PO HS 01/17/23 08/25/24 08/24/24 History baclofen 10 mg tablet 10 mg PO BID 08/15/23 08/25/24 08/24/24 History methimazole 5 mg tablet 20 mg PO DAILY 08/15/23 08/25/24 08/24/24 History pregabalin 100 mg capsule 100 mg PO BID 08/15/23 08/25/24 08/24/24 History amiodarone 200 mg tablet 200 mg PO DAILY 01/11/24 08/25/24 08/24/24 History bumetanide 2 mg tablet 2 mg PO BID 01/11/24 08/25/24 08/24/24 History metoprolol succinate 100 mg 100 mg PO QAM 01/11/24 08/25/24 08/24/24 History tablet,extended release 24 hr (Toprol XL) sacubitril 24 mg-valsartan 26 mg 0.5 tablet PO BID 01/11/24 08/25/24 08/24/24 History tablet (Entresto) tirzepatide 2.5 mg/0.5 mL 2.5 mg subcut WEEKLY 01/11/24 08/18/24 Unknown History subcutaneous pen injector (Kevin) albuterol sulfate 90 mcg/actuation 2 puff inhalation Q4H PRN 05/01/24 05/01/24 Unknown History aerosol inhaler Shortness Of Breath Or Wheezing fluticasone propionate 50 2 spray intranasal DAILY PRN 05/01/24 05/01/24 Unknown History mcg/actuation nasal RHINITIS spray,suspension hydrocodone 5 mg-acetaminophen 325 1 tablet PO BID PRN Pain 05/01/24 05/01/24 Unknown History mg tablet insulin glargine 100 unit/mL (3 8 unit subcut HS 05/01/24 08/25/24 08/24/24 History mL) subcutaneous pen (Lantus Solostar U-100 Insulin) lidocaine 5 % topical patch 1 patch topical DIRECTED PRN 05/01/24 05/01/24 Unknown History Pain semaglutide 14 mg tablet (Rybelsus) 14 mg PO DAILY 05/01/24 08/25/24 08/24/24 History spironolactone 25 mg tablet 25 mg PO DAILY 05/01/24 08/25/24 08/24/24 History atorvastatin 80 mg tablet 80 mg PO QPM 08/18/24 08/25/24 08/24/24 History tirzepatide (weight loss) 7.5 7.5 mg subcut WEEKLY 08/18/24 08/25/24 08/21/24 History mg/0.5 mL subcutaneous pen injector (Zepbound) Allergies Allergy/AdvReac Type Severity Reaction Status Date / Time morphine AdvReac Intermediate Itching Verified 08/25/24 08:44 Review of Systems 2 Review of Systems: As reviewed above in [facility] Past Medical History Medical History Colon polyp Pacemaker 01/10/24; [facility] Right-sided congestive heart failure H/O: substance abuse Brother reports patient is an addict, previously abused cocaine, alcohol and opiates. Cardiomyopathy Neuropathy COPD (chronic obstructive pulmonary disease) Osteoarthritis Congestive heart failure Echocardiogram on 03/27/2021 showed an enlarged left ventricular chamber with normal LV systolic function and an estimated EF of 55 to 60%, diastolic dysfunction, moderately enlarged right ventricular chamber, reduced RV systolic function, biatrial enlargement, mild regurgitation of annuloplasty ring of a prosthetic mitral valve, and mild pulmonary hypertension with an estimated pulmonary arterial systolic pressure of 44 mmHg. MRSA colonization Chronic anemia Depression with anxiety Hyperthyroidism Type 2 diabetes mellitus Hemoglobin A1c was 6.4% on 03/26/2021. Chronic respiratory failure with hypoxia, on home oxygen therapy 3 L nasal cannula with rest p.r.n. 4 L bleed in at nighttime. Obstructive sleep apnea Approved for trilogy unit in February 2020. Coronary artery disease (~2001) Status post three-vessel bypass. Valvular heart disease Status post mitral valve repair. Hyperlipidemia Essential hypertension Chronic atrial fibrillation With failed cardiac ablation and cardioversion on several occasions. On long-term Coumadin for stroke prophylaxis. Personnel Manager is Dr. Vasquez at [facility]. Cerebrovascular accident (~05/2018) With global aphasia, much improved with mild expressive aphasia. Type 2 diabetes mellitus without complication, without long-term current use of insulin Surgical History Surgical History History of coronary artery bypass graft x 3 History of mitral valve repair Family History Family History Father Family history of cardiovascular disease Family history of malignant neoplasm of bone Mother Family history of malignant neoplasm Sibling Family history of cardiovascular disease Social History Social History Social History: He lives alone and is retired from [employer] business. Surrogate decision maker: Alton Peters, brother. 3 daughters Code status: Full code. Smoking packs per day: 1.5 Smoking cigarettes per day: 30.0 Years smoked: 30 Smoking pack-years: 45.00 Smoking status: Former smoker Tobacco type: cigarettes Smokeless tobacco user: snuff Second hand tobacco smoke exposure: No Additional smoking assessment comments: currently uses snuff Alcohol intake: former Alcohol use details: recovering alcoholic since 1996, rare occasional single beer Substance use: former Substance use type: crack/cocaine and prescription drug Last use: Former use of cocaine Do You Feel Safe in your Home?: Yes Lack of Transportation: YES Lack of Food: Sometimes True Current Housing: I Have Housing Concerned About Future Housing: No Difficulty Paying Gas/Electric Bills: YES Difficulty Paying for Meds: YES Currently Unemployed: No Education: Grade School Difficulty w/ Childcare or Family Care: No Living arrangements: with family Additional living arrangements comments: Patient lives in his own apartment in [place]. Additional occupation/education comments: On disability. 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 Gender identity (if verbalized by the patient): Male Spiritual care concerns: No Exam 2 Narrative: GENERAL: Obese but overall well-appearing and not in any acute distress. Anxious when talking to him. HEAD: [Normocephalic, atraumatic.] EYES: [PERRLA and EOMI.] ENT: Nares clear, no rhinorrhea or epistaxis. Mucous membranes moist. NECK: Supple. CHEST: [Clear to auscultation. No respiratory distress.] HEART: [Regular rate and rhythm]. No murmur heard. [Normal peripheral pulses.] ABDOMEN: [Soft, nondistended], [nontender], [No rigidity or guarding] EXTREMITIES: Normal range of motion. [No edema.] SKIN: Warm, dry, no rash. NEURO: [No focal deficits]. Alert and oriented [x3.] PSYCH: Anxious individual but otherwise normal affect Course Vital Signs Vital signs: Vital Signs Temperature 36.9 C 10/13/24 02:32 Pulse Rate 70 10/13/24 02:32 Respiratory Rate 12 10/13/24 02:32 Blood Pressure 143/85 H 10/13/24 02:32 Pulse Oximetry 97 10/13/24 02:32 Oxygen Delivery Room Air 10/13/24 02:32 Temperature 36.9 C 10/13/24 02:32 Pulse Rate 70 10/13/24 05:33 Respiratory Rate 18 10/13/24 05:33 Blood Pressure 116/84 10/13/24 05:33 Pulse Oximetry 94 10/13/24 05:33 Oxygen Delivery Room Air 10/13/24 02:32 MDM - Chest Pain MDM Narrative Medical decision making narrative: 64-year-old male with past medical history including congestive heart failure, atrial fibrillation on apixaban status post ablation with resultant pacemaker. History of CVA. Patient presents to the emergency depart with chief complaint of feeling a panic attack. Patient states that he feels like he is going through a normal panic attack for him. Endorses chest pain but no chest pressure, nausea, vomiting, abdominal pain, shortness a breath, fever, chills. No injuries. Did not take his Xanax or oxycodone at home. Patient denies any other symptoms. Vital signs are reassuring in triage with no significant blood pressure elevations, no tachycardia, fever, hypoxia. He has strong symmetric pulses with a paced rhythm on the monitor. Given his cardiac history a workup was ordered including serial troponin, EKG, chest x-ray and laboratory evaluation. Patient was provide oxycodone and Xanax for symptom control. Patient re-evaluated frequently. Patient was comfortable going home if he has unremarkable workup here in the emergency department as he feels like this is his usual panic attack from panic disorder. Patient's laboratory studies showed no leukocytosis or anemia. Negative initial troponin however his delta troponin had a greater than 20% delta which is concerning. Patient is on his home anticoagulation of apixaban. Remaining laboratory studies show normal electrolytes, normal renal and hepatic function. No significant glucose elevations. Patient was given doses of medications including Ativan and Haldol but he still feels anxious. He is given a dose of Toradol for pain. EKG shows electronic pacemaker rhythm, no signs of acute ischemic event, no interval change compared to prior EKG. Spoke to the hospitalist and relayed patient's positive delta troponin and presentation findings. Patient was accepted to an IMU bed for observation admission. I spoke to the family members and the patient at bedside were comfortable with this plan and had improvement in symptom control after initial doses of medication. Medical Records Data Attestation: I reviewed the patient's medical records. Lab Data Attestation: I reviewed the patient's lab results. 10/13/24 02:57 10/13/24 02:57 Labs: Lab Results 10/13/24 10/13/24 Range/Units 02:57 05:33 WBC 7.8 (4.5-10.0) K/mm3 RBC 5.09 (4.6-6.20) M/mm3 Hgb 14.9 (14.0-18.0) g/dL Hct 47.5 (42.0-52.0) % MCV 93.3 (80-100) fl MCH 29.3 (26-34) pg MCHC 31.4 L (32-36) g/dl RDW 15.1 H (11.5-14.5) % Plt Count 184 (150-375) k/mm3 MPV 9.7 (7.4-10.4) fl Immature Gran % (Auto) 0.4 (0-0.5) % Neut % (Auto) 65.9 (45.5-73.1) % Lymph % (Auto) 17.7 L (18.3-44.2) % Schleicher % (Auto) 9.5 H (2.6-8.5) % Eos % (Auto) 5.6 H (0-4.4) % Baso % (Auto) 0.9 (0.2-1.2) % Lymph # (Auto) 1.38 (0.9-3.2) K/mm3 Schleicher # (Auto) 0.7 H (0.1-0.6) K/mm3 Eos # (Auto) 0.4 H (0-0.3) K/mm3 Baso # (Auto) 0.1 (0.0-0.1) K/mm3 Abs Immat Gran (auto) 0.03 (0.00-0.031) K/mm3 Absolute Neuts (auto) 5.1 (1.3-6.7) K/mm3 Absolute Nucleated RBC 0.000 (0.0-0.012) K/mm3 Nucleated RBC % 0.0 (0.0-0.2) % PT 13.7 (11.1-14.7) Seconds INR 1.0 APTT 31.5 (22.3-36.8) Seconds Sodium 137 (137-145) mmol/L Potassium 3.9 (3.4-5.0) mmol/L Chloride 97 L (98-107) mmol/L Carbon Dioxide 28 (22-30) mmol/L Anion Gap 12 (4-12) mmol/L BUN 16 (9-20) mg/dL Creatinine 1.15 (0.7-1.3) mg/dL Estim Creat Clear Calc Not Reportable Estimated GFR > 60 (59 - ) Glucose 175 H (65-110) mg/dL Calcium 8.7 (8.4-10.2) mg/dL Total Bilirubin 0.9 (0.2-1.3) mg/dL AST 36 (17-59) U/L ALT 46 (6-50) U/L Alkaline Phosphatase 124 (38-126) U/L Troponin I < 0.012 0.024 D (0.000-0.034) ng/mL Total Protein 8.0 (6.3-8.2) g/dL Albumin 4.4 (3.5-5.1) g/dL Lipase 119 (23-300) U/L Imaging Data Attestation: I personally reviewed and interpreted this imaging study as follows: My impression: Impressions Chest X-Ray 10/13/24 06:12 Impression: Clear lungs. Discharge Plan Discharge Clinical Impression: Chest pain, Anxiety Patient Disposition: Still a Patient Condition: Stable Patient Language: Swedish Prescriptions: No Action Jardiance 25 mg tablet 25 mg PO DAILY Qty: 90 0RF Patient Comments: WAITING TO BE ORDERED AGAIN trazodone 50 mg tablet 50 mg PO HS bumetanide 2 mg tablet 2 mg PO BID amiodarone 200 mg tablet 200 mg PO DAILY sacubitril-valsartan [Entresto] 24-26 mg tablet 0.5 tablet PO BID Mounjaro 2.5 mg/0.5 mL pen injector 2.5 mg SUBCUT WEEKLY metoprolol succinate [Toprol XL] 100 mg tablet extended release 24 hr 100 mg PO QAM naloxone [Narcan] 4 mg/actuation spray,non-aerosol 4 mg intranasal Q2M PRN (Reason: opioid overdose) Qty: 2 0RF Rx Instructions: spray 1 dose into ONE nostril; alternate nostrils w each dose until help arrives clopidogrel 75 mg Tablet 75 mg PO QAM Qty: 30 0RF nitroglycerin [Nitrostat] 0.4 mg Tablet, Sublingual 0.4 mg sublingual Q5MIN PRN (Reason: Chest Pain) Qty: 60 0RF baclofen 10 mg tablet 10 mg PO BID methimazole 5 mg tablet 20 mg PO DAILY pregabalin 100 mg capsule 100 mg PO BID hydrocodone-acetaminophen 5-325 mg tablet 1 tablet PO BID PRN (Reason: Pain) spironolactone 25 mg tablet 25 mg PO DAILY lidocaine 5 % adhesive patch,medicated 1 patch topical DIRECTED PRN (Reason: Pain) albuterol sulfate [Proventil HFA] 90 mcg/actuation Hfa Aerosol Inhaler 2 puff INHALATION Q4H PRN (Reason: Shortness Of Breath Or Wheezing) fluticasone propionate 50 mcg/actuation spray,suspension 2 spray INTRANASAL DAILY PRN (Reason: RHINITIS) insulin glargine [Lantus Solostar U-100 Insulin] 100 unit/mL (3 mL) insulin pen 8 unit SUBCUT HS Rybelsus 14 mg tablet 14 mg PO DAILY peg 3350-electrolytes [Golytely] 236-22.74-6.74 -5.86 gram Recon Soln 240 ml PO Q10M Qty: 4000 0RF Rx Instructions: FOLLOW INSTRUCTIONS FROM YOUR PROVIDER ondansetron HCl 4 mg Tablet 4 mg PO Q6H PRN (Reason: Nausea And Vomiting) Qty: 4 0RF Rx Instructions: Take first table 30 minutes prior to starting prep. and may take every 6 hours for nausea Zepbound 7.5 mg/0.5 mL pen injector 7.5 mg subcut WEEKLY atorvastatin 80 mg tablet 80 mg PO QPM metformin 500 mg tablet 1,000 mg PO Q12H Qty: 360 1RF Eliquis 5 mg tablet 5 mg PO BID Qty: 180 1RF atorvastatin 40 mg tablet 40 mg PO QHS Qty: 90 1RF Follow-up/Referrals: Ramy,Azar Lim MD [Primary Care Provider] - Time of Disposition: 07:22
--- OUTSIDE RECORDS SUMMARY | 2024-10-13 03:05 | XMS_ITS | Continuity of Care Document ---
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 Name Role Phone Osman Chauhan MD Unavailable Unavailable Medications Medication Instructions Dosage Effective Dates (start - stop) Status Comments [place] 10 mg-325 mg tablet take 1 tablet by oral route every 8 hours as needed for pain 1 tablet - Active Procedures Procedure Date OFFICE/OUTPATIENT VISIT, EST Advance Directives Directive Yes / No Effective Date File Name No Information Encounters Encounter Description Practice Location Reason(s) For Visit Diagnoses Date Provider Providers Copied on Encounter [facility], [address] [place] [address], [facility], tel:[phone] [facility] No Information 8 Tien Brewer. [address], [place], [facility], . [phone] OFFICE/OUTPA TIENT VISIT, EST [facility], [address] [place] [address], [facility], tel:[phone] *[facility] chronic conditions (chief complaint)W [facility] Inpatient Stay (chief complaint) DDD (degenerative disc disease), lumbarSpinal stenosis of lumbar regionChronic bilateral low back pain without sciaticaDietary counseling and surveillanceAtri al fibrillation 6 Bambi Pandey. [address] [place], [place], [facility], . [phone] Family History Family Member Type Diagnosis Age At Onset No Information Payers Payer name Insurance type Covered republican ID Authoriza tion(s) No Information Social History [...] Referrals: Pain Medicine. [facility]. Location: [facility]. Evaluate and treat ordered Referral Ordered: Referrals: Pain Medicine. Evaluate and treat ordered History Of Present Illness Encounter Date Complaint History Of Prese nt Illness chronic conditions 1) DDD (degen erative disc disease), lumbar (Chronic.) 2) Spinal stenosis of lumbar region (Chronic.) 3) Chronic bilateral low back pain without sciatica (Chronic.) Patient is here for check up and requesting pain medication be increased since he is having to take them frequently. [facility] Inpatient Stay Patient is h ere to follow up from recent [facility] Hospital Stay for Atrial Fib. Functional Status Date Functional Assessmen t No Information Instructions Date Instruction Additional Infor mation Patient has improved and is to continue present treatment. Related to Atrial fibrillation Patient was counsele d on diet and handout availability. Related to Dietary counseling and surveillance Patient was given pr escription for [place] and increased strength to 10/325 but he will be referred to Pain Management for further treatment. Pharmacy called stating patient just filled a [place] script for #120 on 12/18/2015 so the [...]
--- OUTSIDE RECORDS SUMMARY | 2024-10-13 03:05 | XMS_ITS | Clinical Summary ---
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 or = [...] on 2018. LDL, calculated 84 <=129 mg/dL [facility] Comment: Interpretive Data Ages < or = [...] Pediatrics 2011;128:S213 2. NCEP Expert Panel. Circulation 2003;110:227 Current Interpretive Data was last revised on 2018. Non-HDL Cholesterol 97 mg/dL [facility] Comment: Interpretive Data Ages < or = [...] last revised on 2018. Chol/HDL ratio 4 [facility] Blood 01/12/2024 5:02 AM CDT 01/12/2024 5:38 AM CDT us Karen Lopez MD LAB BLOOD ORDERABLES F inal Result [facility] [address] [place] [address] * Hepatitis C antibody Blood (08/20/2023 8:41 PM WASHCOAT WIPER) Hep C Ab Nonreactive Nonreactive [facility] Comment:Antibodies to HCV no t detected. Does NOT exclude the possibility of recent exposure to HCV. Current interpretive data was last revised on 22 Blood 08/20/2023 8:41 PM WASHCOAT WIPER 08/20/2023 9:26 PM WASHCOAT WIPER Johnnie Bonilla MD LAB MICROBIOLOGY - GENERAL O RDERABLES Final Result [facility] [place] [address] * DIABETES EYE EXAM (07/26/2023 9:09 AM WASHCOAT WIPER) [facility] Cassie [facility] Final Result * Albumin Creatinine Ratio, Urine (04/26/2023 9:46 AM CDT) Albumin Ur <12.0 mg/L Comment: Interpretive Data No reference range established. Current interpretive data was last revised 2018. Creatinine Ur 45.7 mg/dL [facility] Comment: Interpretive Data No reference range established. Current interpretive data was last revised 2018. Albumin Creatinine Ratio, Ur <26 1 - 29 mg/g MARIYA Urine 04/26/2023 9:46 AM CDT 04/26/2023 6:20 PM CDT Ricarda Myers CLINICAL PSYCHOLOGIST LAB URINE ORDERABLES Lindsey l Result [facility] [address] Department [place] [address] from Last 3 Months or Most Recently Relevant to Health Maintenance Insurance [employer] MEDICARE HMO IDPA [facility] MEDICARE O IDPA Advance Directives For more information, please contact: [phone] Documents on File Type Date Recorded Patient Food Vendor Expl anation ADVANCE DIRECTIVE 11/02/2017 12:00 AM RICHI R OF OVEN HEATER FINANCIAL/MEDICAL * Full Code (Latest Code Status [...] selected below: No intubationNo cardioversion Care Teams Professor Of German Relationship Specialty Start Date End Date Azar Mccann MD [address] [facility] [address] [place] [address] PCP - General Family Medicine 05/31/23 Braulio Alexandre DO [address] [facility] [address] A [facility] [address] [place] [address] Pain Management 03/18/23 Cedric Spence MD [address], [place] [address] Consulting Physician Interventional Cardiology 03/18/23 [place] [address] [place] [address] Consulting Physician Endocrinology Diabetes & Metabolism 03/18/23 Osman Pantoja MD [address] [facility] [facility] [address] Referring Physician Emergency Medicine 04/22/23 Ruel Villa MD [address] [address] Consulting Physician Clinical Cardiac Electrophysiology 01/15/24
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
--- OUTSIDE RECORDS SUMMARY | 2024-10-13 03:06 | XMS_ITS | Encounter Summary ---
Author Organization [facility] Facility Care Team Providers Care Quality Cloth Tester Name Role Phone Barbara Chen MD Primary Care Provider [phone] Valdo Wu DO Primary Care Provider [phone] Valdo Wu DO Primary Care Provider [phone] Martell Vasquez MD Unavailable [phone] Unknown, Notinfile Primary Care Provider Unavail able Unknown, Notinfile Primary Care Provider Unavail able Unknown, Notinfile Primary Care Provider Unavail able Unknown, Notinfile Primary Care Provider Unavail able Valdo Wu DO Primary Care Provider [phone] Mona Nieves MD Primary Care Provider Braulio Alexandre DO Unavailable [phone] Cedric Spence MD Unavailable [phone]- [phone] Luz Maria Burns MD Unavailable Osman Pantoja MD Unavailable [phone] Azar Mccann MD Primary Care Provider [phone] Char Molina RN Unavailable [phone] Ruel Villa MD Unavailable [phone] Encounter Details Date Type Department Care Team (Latest Contact Info) Description 04/30/2016 Orders Only [facility] CLINCONV ProviderIbis MD [address] [place] [address] Social History Tobacco Use Types Packs/Day Years Used Date Smoking Tobacco: Never Assessed Sex and Gender Information Value Date Recorded Sex Assigned at Not on file Legal Sex Male 4:10 AM HEALTH CARE MARKETING SPECIALIST Gender Identity Male 10/12/2023 1:45 PM CDT [...] AM CDT Ordered by an unspecified provider. [facility] Provider Final Res ult * CARDIOLOGY REPORT (04/30/2016 12:00 AM CDT) Anatomical Region Laterality Modality Other Narrative 04/30/2016 12:00 AM CDT Ordered by an unspecified provider. [facility] Provider CV CARDIAC SERVICES PROCE DURES Final Result * CARDIOLOGY REPORT (04/30/2016 12:00 AM CDT) Anatomical Region Laterality Modality Other Narrative 04/30/2016 12:00 AM CDT Ordered by an unspecified provider. [facility] Provider CV CARDIAC SERVICES PROCE DURES Final Result * CARDIOLOGY REPORT (04/30/2016 12:00 AM CDT) Anatomical Region Laterality Modality Other Narrative 04/30/2016 12:00 AM CDT Ordered by an unspecified provider. [facility] Provider CV CARDIAC SERVICES PROCE DURES Final [...] criteria for COVID-19 isolation discontinuation. Edna Landers, LOAN AND CREDIT MANAGER 02/10/2020 Automatically added due to negative COVID-19 result. 02/09/2020 02/09/2020 02/10/2020 7:34 AM C DT COVID: Suspected 01/11/2024 01/11/2024 01/11/2024 8:35 PM CDT documented as of this encounter Care Teams Quality Cloth Tester Relationship Specialty Start Date End Date Barbara [...] Practice 12/08/22 05/30/23 Azar Mccann MD [address] [place] [address] PCP - General Family Medicine 05/31/23 Martell Vasquez MD [address] [facility] [address] [place] [address] Mechanical Engineering Draftsperson Cardiology 05/29/19 05/30/23 Braulio Alexandre DO [address] [place] [address] [address] A [facility] [address] [place] [address] Pain Management 03/18/23 Cedric Spence MD [address] [facility] [address], [place] [address] Consulting Physician Interventional Cardiology 03/18/23 [place] [address] [address] [facility] [address] [place] [address] Consulting Physician Endocrinology Diabetes & Metabolism 03/18/23 Osman Pantoja MD [address] [place] [address] Referring Physician Emergency Medicine 04/22/23 Char Molina, RN [address] [facility] [address] [place] [address] SHOP Outpatient Chair Post Machine Operator 08/27/23 08/27/23 Ruel Villa MD [address] [facility] [address] [address] Consulting Physician Clinical Cardiac Electrophysiology 01/15/24 documented as of this encounter
--- OUTSIDE RECORDS SUMMARY | 2024-10-13 03:06 | XMS_ITS | Encounter Summary ---
Author Organization [facility] Facility Care Team Providers Care Sign Fabricator Name Role Phone Barbara Chen MD Primary Care Provider [phone] Valdo Wu DO Primary Care Provider [phone] Valdo Wu DO Primary Care Provider [phone] Martell Vasquez MD Unavailable [phone] Unknown, Notinfile Primary Care Provider Unavail able Unknown, Notinfile Primary Care Provider Unavail able Unknown, Notinfile Primary Care Provider Unavail able Unknown, Notinfile Primary Care Provider Unavail able Valdo Wu DO Primary Care Provider [phone] Mona Nieves MD Primary Care Provider Braulio Alexandre DO Unavailable [phone] Cedric Spence MD Unavailable [phone]- [phone] Luz Maria Burns MD Unavailable Osman Pantoja MD Unavailable [phone] Azar Mccann MD Primary Care Provider [phone] Char Molina RN Unavailable [phone] Ruel Villa MD Unavailable [phone] Encounter Details Date Type Department Care Team (Latest Contact Info) Description 06/02/2016 Orders Only [facility] CLINCONV ProviderIbis MD [address] [place] [address] Social History Tobacco Use Types Packs/Day Years Used Date Smoking Tobacco: Never Assessed Sex and Gender Information Value Date Recorded Sex Assigned at Not on file Legal Sex Male 4:10 AM EAR NOSE THROAT SURGEON Gender Identity Male 10/12/2023 1:45 PM CDT Sexual Orientation Not on file documented as of this encounter Plan of Treatment Not on file documented as of this encounter Procedures Procedure Name Priority Date/Time Associated Diagnosis Comments CARDIOLOGY REPORT 06/11/2016 12: 00 AM EAR NOSE THROAT SURGEON CARDIOLOGY REPORT 06/11/2016 12: 00 AM EAR NOSE THROAT SURGEON CARDIOLOGY REPORT 06/11/2016 12: 00 AM EAR NOSE THROAT SURGEON documented in this encounter Results * CARDIOLOGY REPORT (06/11/2016 12:00 AM EAR NOSE THROAT SURGEON) Anatomical Region Laterality Modality Other Narrative 06/11/2016 12:00 AM EAR NOSE THROAT SURGEON Ordered by an unspecified provider. Historical Provider CV CARDIAC SERVICES PROCE DURES Final Result * CARDIOLOGY REPORT (06/11/2016 12:00 AM EAR NOSE THROAT SURGEON) Anatomical Region Laterality Modality Other Narrative 06/11/2016 12:00 AM EAR NOSE THROAT SURGEON Ordered by an unspecified provider. [facility] Provider CV CARDIAC SERVICES PROCE DURES Final Result * CARDIOLOGY REPORT (06/11/2016 12:00 AM EAR NOSE THROAT SURGEON) Anatomical Region Laterality Modality Other Narrative 06/11/2016 12:00 AM EAR NOSE THROAT SURGEON Ordered by an unspecified provider. [facility] Provider CV CARDIAC SERVICES PROCE DURES [...] criteria for COVID-19 isolation discontinuation. Edna Landers, HUMAN PERFORMANCE PROFESSOR 02/10/2020 Automatically added due to negative COVID-19 result. 02/09/2020 02/09/2020 02/10/2020 7:34 AM C DT COVID: Suspected 01/11/2024 01/11/2024 01/11/2024 8:35 PM CDT documented as of this encounter Care Teams Sign Fabricator Relationship Specialty Start Date End Date Barbara [...] Practice 12/08/22 05/30/23 Azar Mccann MD [address] [address] PCP - General Family Medicine 05/31/23 Martell Vasquez MD [address] [facility] [address] [address] Sealant Mixer Cardiology 05/29/19 05/30/23 Braulio Alexandre DO [address] [facility] [address] [place] [place] [address] Pain Management 03/18/23 Cedric Spence MD [address] [facility] [address] [place], [place] [address] Consulting Physician Interventional Cardiology 03/18/23 [place] [address] [address] [facility] [address] [place] [address] Consulting Physician Endocrinology Diabetes & Metabolism 03/18/23 Osman Pantoja MD [address] [place] [address] Referring Physician Emergency Medicine 04/22/23 Char Molina, RN [address] [facility] [address] [place], [place] [id number] SHOP Outpatient Harness Puller 08/27/23 08/27/23 Ruel Villa MD [address] [facility] [address] [place] [address] Consulting Physician Clinical Cardiac Electrophysiology 01/15/24 documented as of this encounter
--- OUTSIDE RECORDS SUMMARY | 2024-10-13 03:06 | XMS_ITS | Encounter Summary ---
Author Organization [facility] Facility Care Team Providers Care Associate Professor Of Biostatistics Name Role Phone Barbara Chen MD Primary Care Provider [phone] Valdo Wu DO Primary Care Provider [phone] Valdo Wu DO Primary Care Provider [phone] Martell Vasquez MD Unavailable [phone] Unknown, Notinfile Primary Care Provider Unavail able Unknown, Notinfile Primary Care Provider Unavail able Unknown, Notinfile Primary Care Provider Unavail able Unknown, Notinfile Primary Care Provider Unavail able Valdo Wu DO Primary Care Provider [phone] Mona Nieves MD Primary Care Provider Braulio Alexandre DO Unavailable [phone] Cedric Spence MD Unavailable [phone]- [phone] Luz Maria Burns MD Unavailable Osman Pantoja MD Unavailable [phone] Azar Mccann MD Primary Care Provider [phone] Char Molina RN Unavailable [phone] Ruel Villa MD Unavailable [phone] Encounter Details Date Type Department Care Team (Latest Contact Info) Description 10/25/2017 Orders Only [facility] CLINCONV ProviderIbis MD [address] [place] [address] Social History Tobacco Use Types Packs/Day Years Used Date Smoking Tobacco: Never Assessed Sex and Gender Information Value Date Recorded Sex Assigned at Not on file Legal 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 Edna Landers, BUILDING CONTRACTOR 02/10/2020 Automatically added due to negative COVID-19 result. 02/09/2020 02/09/2020 02/10/2020 7:34 AM C DT COVID: Suspected 01/11/2024 01/11/2024 01/11/2024 8:35 PM CDT documented as of this encounter Care Teams Associate Professor Of Biostatistics Relationship Specialty Start Date End Date Barbara [...] 05/30/23 Azar Mccann MD [address] [facility] [address] [place] [address] PCP - General Family Medicine 05/31/23 Martell Vasquez MD [address] [facility] [address] [address] Technical Writer And Editor Cardiology 05/29/19 05/30/23 Braulio Alexandre DO [address] [facility] [address] [facility] [address] [place] [address] Pain Management 03/18/23 Cedric Spence MD [address] [facility] [address], [place] [address] Consulting Physician Interventional Cardiology 03/18/23 [place] [address] [address] [facility] [address] [place] [address] Consulting Physician Endocrinology Diabetes & Metabolism 03/18/23 Omsan Pantoja MD [address] [place] [address] Referring Physician Emergency Medicine 04/22/23 Char Molina, KENYA [address] [facility] [address] [place] [address] SHOP Outpatient Continuous Yarn Dyeing Machine Operator 08/27/23 08/27/23 Ruel Villa MD [address] [facility] [address] [place] [address] Consulting Physician Clinical Cardiac Electrophysiology 01/15/24 documented as of this encounter
--- OUTSIDE RECORDS SUMMARY | 2024-10-13 03:06 | XMS_ITS | Clinical Summary ---
Author Organization [facility] Address [address] [facility] [place] [address] Care Team Providers Care Plating Tank Operator Apprentice Name Role Phone Valdo Wu DO Primary Care Provider [phone] Source Comments [facility],non-owned Affiliates and Associated Physician Practices is amultiple site organization consisting of ambulatory clinics and hospital sitesin [place], [place], [place] and [place]. This disclosure is being madepursuant to the Care Everywhere program and may not contain all information available regarding this patient. 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 Other [...] unspecified claudio cotics, accidental (unintentional), sequela 09/29/2014 technician terminal and repeater current use of anticoagulant 5 Chronic systolic [...] Comments Blood Pressure 111/65 07/04/2018 11:56 AM GASOLINE ENGINE INSPECTOR Pulse 96 07/04/2018 11:56 AM GASOLINE ENGINE INSPECTOR Temperature 37 C (98.6 F) 07/04/2018 11:56 AM GASOLINE ENGINE INSPECTOR Respiratory Rate 20 07/04/2018 11:56 AM GASOLINE ENGINE INSPECTOR Oxygen Saturation 93% 07/04/2018 11:56 AM GASOLINE ENGINE INSPECTOR Inhaled Oxygen Concentration - - Weight 88.5 kg (195 lb) 06/30/2018 4:09 PM GASOLINE ENGINE INSPECTOR Height 177.8 cm (5' 10 ) 06/30/2018 4:09 PM GASOLINE ENGINE INSPECTOR Body Mass Index 27.98 06/30/2018 4:09 PM GASOLINE ENGINE INSPECTOR Plan of Treatment Health Maintenance Due Date [...] 50+ (1 of 2 - PCV) 1978 ZOSTER VACCINE (1 of 2) 2009 Respiratory Syncytial Virus (RSV) Vaccine Pt: or over 60 yrs (1 - Risk 60-74 years 1-dose series) 2019 COVID-19 VACCINE (1 - 2023-2 5 season) 2024 DEPRESSION SCREENING 07/12/2024 MEDICARE AWV CALENDAR YEAR 2024 AAA SCREENING 2024 INFLUENZA VACCINE (Season Ended) 2025 HEPATITIS B VACCINE Aged Out No longe r eligible based on patient's age to complete this topic HIB VACCINE Aged Out No longer eligi ble based on patient's age to complete this topic HPV VACCINE Aged Out No longer eligi ble based on patient's age to complete this topic MENINGOCOCCAL (Group B) VACC INE SHARED DECISION-MAKING Aged Out No longer eligibl e based on patient's age to complete this topic MENINGOCOCCAL GROUPS A/C/Y/W VACCINE Aged Out No longer eligible b ased on patient's age to complete this topic Advance Directives Documents on File Type Date Recorded Patient Medical Billing Specialist Expl anation Adv Directive/Living Will/POA 06/13/2018 5:46 [...] 9:26 PM 06/06/2018 6:24 PM Care Teams Plating Tank Operator Apprentice Relationship Specialty Start Date End Date Valdo Wu DO [address] [place] [address] PCP - General 02/16/22
--- OUTSIDE RECORDS SUMMARY | 2024-10-13 03:06 | XMS_ITS | Encounter Summary ---
Author Organization [facility] Facility Care Team Providers Care Commercial Installer Name Role Phone Barbara Chen MD Primary Care Provider [phone] Valdo Wu DO Primary Care Provider [phone] Valdo Wu DO Primary Care Provider [phone] Martell Vasquez MD Unavailable [phone] Unknown, Notinfile Primary Care Provider Unavail able Unknown, Notinfile Primary Care Provider Unavail able Unknown, Notinfile Primary Care Provider Unavail able Unknown, Notinfile Primary Care Provider Unavail able Valdo Wu DO Primary Care Provider [phone] Mona Nieves MD Primary Care Provider Braulio Alexandre DO Unavailable [phone] Cedric Spence MD Unavailable [phone]- [phone] Luz Maria Burns MD Unavailable Osman Pantoja MD Unavailable [phone] Azar Mccann MD Primary Care Provider [phone] Char Molina RN Unavailable [phone] Ruel Villa MD Unavailable [phone] Encounter Details Date Type Department Care Team (Latest Contact Info) Description 06/01/2016 Orders Only [facility] CLINCONV ProviderIbis MD [address] [place] [address] Social History Tobacco Use Types Packs/Day Years Used Date Smoking Tobacco: Never Assessed Sex and Gender Information Value Date Recorded Sex Assigned at Not on file Legal Sex Male 4:10 AM DIRECTOR OF TEENAGE ACTIVITIES Gender Identity Male 10/12/2023 1:45 PM CDT Sexual Orientation Not on file documented as of this encounter Plan of Treatment Not on file documented as of this encounter Procedures Procedure Name Priority Date/Time Associated Diagnosis Comments CARDIOLOGY REPORT 06/11/2016 12: 00 AM DIRECTOR OF TEENAGE ACTIVITIES documented in this encounter Results * CARDIOLOGY REPORT (06/11/2016 12:00 AM DIRECTOR OF TEENAGE ACTIVITIES) Anatomical Region Laterality Modality Other Narrative 06/11/2016 12:00 AM DIRECTOR OF TEENAGE ACTIVITIES Ordered by an unspecified provider. us Historical [...] criteria for COVID-19 isolation discontinuation. Edna Landers, FIBER ANALYST 02/10/2020 Automatically added due to negative COVID-19 result. 02/09/2020 02/09/2020 02/10/2020 7:34 AM C DT COVID: Suspected 01/11/2024 01/11/2024 01/11/2024 8:35 PM CDT documented as of this encounter Care Teams Commercial Installer Relationship Specialty Start Date End Date Barbara [...] 05/30/23 Azar Mccann MD [address] [facility] [address] [place] [address] PCP - General Family Medicine 05/31/23 Martell Vasquez MD [address] [facility] [address] [address] Fabrication Department Supervisor Cardiology 05/29/19 05/30/23 Braulio Alexandre DO [address] [facility] [address] [address] Pain Management 03/18/23 Cedric Spence MD [address] [facility] [address], [place] [address] Consulting Physician Interventional Cardiology 03/18/23 [place] [address] [address] [facility] [address] [place] [address] Consulting Physician Endocrinology Diabetes & Metabolism 03/18/23 Osman Pantoja MD [address] [place] [address] Referring Physician Emergency Medicine 04/22/23 Char Molina, KENYA 4590 [facility] [address] [place] [address] SHOP Outpatient Construction Person 08/27/23 08/27/23 Ruel Villa MD [address] [facility] [address] [place] [address] Consulting Physician Clinical Cardiac Electrophysiology 01/15/24 documented as of this encounter
--- OUTSIDE RECORDS SUMMARY | 2024-10-13 03:06 | XMS_ITS | Encounter Summary ---
Author Organization [facility] Facility Care Team Providers Care Shrimp Packer Name Role Phone Barbara Chen MD Primary Care Provider [phone] Valdo Wu DO Primary Care Provider [phone] Valdo Wu DO Primary Care Provider [phone] Martell Vasquez MD Unavailable [phone] Unknown, Notinfile Primary Care Provider Unavail able Unknown, Notinfile Primary Care Provider Unavail able Unknown, Notinfile Primary Care Provider Unavail able Unknown, Notinfile Primary Care Provider Unavail able Valdo Wu DO Primary Care Provider [phone] Mona Nieves MD Primary Care Provider Braulio Alexandre DO Unavailable [phone] Cedric Spence MD Unavailable [phone] Luz Maria Burns MD Unavailable Osman Pantoja MD Unavailable [phone] Azar Mccann MD Primary Care Provider [phone] Char Molina RN Unavailable [phone] Ruel Villa MD Unavailable [phone] Encounter Details Date Type Department Care Team (Latest Contact Info) Description 06/05/2016 Orders Only [facility]G CLINCONV ProviderIbis MD [address] [place] [address] Social History Tobacco Use Types Packs/Day Years Used Date Smoking Tobacco: Never Assessed Sex and Gender Information Value Date Recorded Sex Assigned at Not on file Legal Sex Male 4:10 AM CHANGE OF ADDRESS CLERK Gender Identity Male 10/12/2023 1:45 PM CDT Sexual Orientation Not on file documented as of this encounter Plan of Treatment Not on file documented as of this encounter Procedures Procedure Name Priority Date/Time Associated Diagnosis Comments CARDIOLOGY REPORT 06/11/2016 12: 00 AM CHANGE OF ADDRESS CLERK documented in this encounter Results * CARDIOLOGY REPORT (06/11/2016 12:00 AM CHANGE OF ADDRESS CLERK) Anatomical Region Laterality Modality Other Narrative 06/11/2016 12:00 AM CHANGE OF ADDRESS CLERK Ordered by an unspecified provider. us Historical [...] criteria for COVID-19 isolation discontinuation. Edna Landers, FAMILY PHYSICIAN 02/10/2020 Automatically added due to negative COVID-19 result. 02/09/2020 02/09/2020 02/10/2020 7:34 AM C DT COVID: Suspected 01/11/2024 01/11/2024 01/11/2024 8:35 PM CDT documented as of this encounter Care Teams Shrimp Packer Relationship Specialty Start Date End Date Barbara [...] - General Internal Medicine 10/07/20 12/07/22 Mona Nieevs MD PCP - General Family Practice 12/08/22 05/30/23 Azar Mccann MD [address] [facility] [address] [place] [address] PCP - General Family Medicine 05/31/23 Martell Vasquez MD [address] [facility] [address] [address] Human Factors Ergonomist Cardiology 05/29/19 05/30/23 Braulio Alexandre DO [address] [facility] [address] [address] Pain Management 03/18/23 Cedric Spence MD [address] [facility] [address], [place] [address] Consulting Physician Interventional Cardiology 03/18/23 [place] [address] [address] [facility] [address] [place] [address] Consulting Physician Endocrinology Diabetes & Metabolism 03/18/23 Osman Pantoja MD [address] [place] [address] Referring Physician Emergency Medicine 04/22/23 Char Molina, KENYA [address] [facility] [address] [place] [address] SHOP Outpatient Business Office Associate 08/27/23 08/27/23 Ruel Villa MD [address] [facility] [address] [place] [address] Consulting Physician Clinical Cardiac Electrophysiology 01/15/24 documented as of this encounter
[2024-10-13] MEDS: oxyCODONE HCL (*CRX) 5 MG TAB IR PO ×2 (03:15→11:40)
[2024-10-13] MEDS: ALPRAZolam (*CRX) 0.5 MG TABLET PO (03:16)
[2024-10-13 03:17] LABS: Prothrombin Time 13.7 Seconds (11.1-14.7)
[2024-10-13] MEDS: ASPIRIN 81 MG CHEWABLE TABLET 324 MG PO (03:17)
[2024-10-13 03:18] LABS: Partial Thromboplastin Time 31.5 Seconds (22.3-36.8)
[2024-10-13 03:19] LABS: Alanine Aminotransferase 46 U/L (6-50); Albumin Level 4.4 g/dL (3.5-5.1); Alkaline Phosphatase 124 U/L (38-126); Anion Gap 12 mmol/L (4-12); Aspartate Amino Transferase 36 U/L (17-59); Bilirubin,Total 0.9 mg/dL (0.2-1.3); Blood Urea Nitrogen 16 mg/dL (9-20); Calcium 8.7 mg/dL (8.4-10.2); Carbon Dioxide 28 mmol/L (22-30); Chloride 97 mmol/L (98-107); Estimated Glomerular Filt Rate > 60; Glucose 175 mg/dL (65-110); Lipase 119 U/L (23-300); Potassium 3.9 mmol/L (3.4-5.0); Sodium 137 mmol/L (137-145)
[2024-10-13 03:26] LABS: Troponin I < 0.012 ng/mL (0.000-0.034)
[2024-10-13] MEDS: HALOPERIDOL LACTATE 5 MG/ML VIAL 2.5 MG IV PUSH (04:44)
[2024-10-13 06:10] LABS: Troponin I 0.024 ng/mL (0.000-0.034)
[2024-10-13] MEDS: KETOROLAC 15 MG/ML VIAL (*BKC) IV PUSH (06:50)
[2024-10-13] MEDS: LORazepam INJ (*CRX) 2 MG/ML VIAL 1 MG IV PUSH (06:50)
--- NOTE | 2024-10-13 09:26 | PC.NURSE ---
PAtient arrived to IMU. Patient placed on tele. Admission and med rec completed.
--- NOTE | 2024-10-13 11:03 | PM.IMHP ---
H&P: HPI History of Present Illness Date/Time: 10/13/24 11:03 Chief Complaint: Shortness of breath/anxiety Narrative: Patient with history of CAD, CHF, atrial fibrillation status post ablation, prior stroke, anxiety, panic attack presents with shortness of her breath and feeling panic attack. Patient notes his symptoms started yesterday and is similar to previous panic attack attack. Patient denies any abdominal pain, nausea vomiting. EMS brought patient to ER because he called several times for panic/anxiety attack. Ultrasound was unremarkable. Chest x-ray, EKG unremarkable. Troponin 0.012 on repeat was 0.024. Patient was admitted for further management. At time of my exam patient feeling better. His symptoms improving. He thinks he had a panic attack last night. Discussed with patient will monitor for troponin level. Review of Systems Review of Systems: All systems reviewed & are unremarkable except as noted in HPI and below [facility] Past Medical History Medical History Colon polyp Pacemaker 01/10/24; [facility] Right-sided congestive heart failure H/O: substance abuse Brother reports patient is an addict, previously abused cocaine, alcohol and opiates. Cardiomyopathy Neuropathy COPD (chronic obstructive pulmonary disease) Osteoarthritis Congestive heart failure Echocardiogram on 03/27/2021 showed an enlarged left ventricular chamber with normal LV systolic function and an estimated EF of 55 to 60%, diastolic dysfunction, moderately enlarged right ventricular chamber, reduced RV systolic function, biatrial enlargement, mild regurgitation of annuloplasty ring of a prosthetic mitral valve, and mild pulmonary hypertension with an estimated pulmonary arterial systolic pressure of 44 mmHg. MRSA colonization Chronic anemia Depression with anxiety Hyperthyroidism Type 2 diabetes mellitus Hemoglobin A1c was 6.4% on 03/26/2021. Chronic respiratory failure with hypoxia, on home oxygen therapy 3 L nasal cannula with rest p.r.n. 4 L bleed in at nighttime. Obstructive sleep apnea Approved for trilogy unit in February 2020. Coronary artery disease (~2001) Status post three-vessel bypass. Valvular heart disease Status post mitral valve repair. Hyperlipidemia Essential hypertension Chronic atrial fibrillation With failed cardiac ablation and cardioversion on several occasions. On long-term Coumadin for stroke prophylaxis. Wellness Program Manager is Dr. Vasquez at [facility] (formerly [facility]). Cerebrovascular accident (~05/2018) With global aphasia, much improved with mild expressive aphasia. Type 2 diabetes mellitus without complication, without long-term current use of insulin Surgical History Surgical History History of coronary artery bypass graft x 3 History of mitral valve repair Family History Family History Father Family history of cardiovascular disease Family history of malignant neoplasm of bone Mother Family history of malignant neoplasm Sibling Family history of cardiovascular disease Social History Social History Social History: He lives alone and is retired from [employer] business. Surrogate decision maker: Alton Peters, brother. 3 daughters Code status: Full code. Smoking packs per day: 1.5 Smoking cigarettes per day: 30.0 Years smoked: 30 Smoking pack-years: 45.00 Smoking status: Former smoker Tobacco type: cigarettes Smokeless tobacco user: snuff Second hand tobacco smoke exposure: No Additional smoking assessment comments: Has not smoked for 10-15 years Alcohol intake: former Alcohol use details: recovering alcoholic since 1996, rare occasional single beer Substance use: never Substance use type: does not use Last use: Has not drank etoh [id number] per patient Do You Feel Safe in your Home?: Yes Lack of Transportation: No Lack of Food: Never True Current Housing: I Have Housing Concerned About Future Housing: No Difficulty Paying Gas/Electric Bills: No Difficulty Paying for Meds: No Currently Unemployed: No Education: Trade/Vocational Certificate Difficulty w/ Childcare or Family Care: No Living arrangements: with family Additional living arrangements comments: Patient lives in his own apartment in [place]. Additional occupation/education comments: On disability. 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 Gender identity (if verbalized by the patient): Male Spiritual care concerns: No Meds Home Medications and Allergies Home Medications ?Medication ?Instructions ?Recorded ?Confirmed ?Type metformin 500 mg tablet 1,000 mg (2 x 500 mg) PO Q12H #360 04/17/22 10/13/24 Rx tabs apixaban 5 mg tablet (Eliquis) 5 mg PO BID #180 tabs 06/11/22 10/13/24 Rx empagliflozin 25 mg tablet 25 mg PO DAILY #90 tabs 07/20/22 10/13/24 Rx (Jardiance) clopidogrel 75 mg tablet 75 mg PO QAM #30 tabs 06/25/23 10/13/24 Rx baclofen 10 mg tablet 10 mg PO BID 08/15/23 10/13/24 History pregabalin 100 mg capsule 100 mg PO BID 08/15/23 10/13/24 History amiodarone 200 mg tablet 200 mg PO DAILY 01/11/24 10/13/24 History bumetanide 2 mg tablet 2 mg PO BID 01/11/24 10/13/24 History sacubitril 24 mg-valsartan 26 mg 0.5 tablet PO BID 01/11/24 10/13/24 History tablet (Entresto) naloxone 4 mg/actuation nasal 4 mg intranasal Q2M PRN opioid 02/04/24 10/13/24 Rx spray (Narcan) overdose #2 ea albuterol sulfate 90 mcg/actuation 2 puff inhalation Q4H PRN 05/01/24 10/13/24 History aerosol inhaler Shortness Of Breath Or Wheezing fluticasone propionate 50 2 spray intranasal DAILY PRN 05/01/24 10/13/24 History mcg/actuation nasal RHINITIS spray,suspension lidocaine 5 % topical patch 1 patch topical DIRECTED PRN 05/01/24 10/13/24 History Pain spironolactone 25 mg tablet 25 mg PO DAILY 05/01/24 10/13/24 History atorvastatin 80 mg tablet 80 mg PO QPM 08/18/24 10/13/24 History cyclobenzaprine 10 mg tablet 10 mg PO HS PRN as needed 10/13/24 10/13/24 History oxycodone 5 mg tablet 5 mg PO BID PRN pain 10/13/24 10/13/24 History tirzepatide 5 mg/0.5 mL 5 mg subcut WEEKLY 10/13/24 10/13/24 History subcutaneous pen injector (Kevin) venlafaxine 37.5 mg 37.5 mg PO QPM 10/13/24 10/13/24 History capsule,extended release 24 hr Allergies Allergy/AdvReac Type Severity Reaction Status Date / Time No Known Allergies Allergy Verified 10/13/24 09:23 Vital Signs Vital Signs - 24 hr 10/13/24 02:32 10/13/24 02:32 10/13/24 02:32 Temperature 98.4 F Pulse Rate 70 70 Respiratory Rate 12 Blood Pressure 143/85 H Pulse Oximetry 97 97 Oxygen Delivery Room Air Room Air 10/13/24 03:46 10/13/24 05:33 10/13/24 07:00 Temperature 97.9 F Pulse Rate 70 70 70 Respiratory Rate 14 18 16 Blood Pressure 107/65 116/84 130/82 Pulse Oximetry 97 94 97 Oxygen Delivery 10/13/24 08:00 10/13/24 08:50 10/13/24 09:21 Temperature 97.9 F 97.6 F Pulse Rate 70 70 Respiratory Rate 16 22 H Blood Pressure 134/80 100/58 L Pulse Oximetry 95 91 93 Oxygen Delivery Room Air Exam Narrative: GENERAL: Obese but overall well-appearing and not in any acute distress. HEAD: [Normocephalic, atraumatic.] EYES: [PERRLA and EOMI.] ENT: Nares clear, no rhinorrhea or epistaxis. Mucous membranes moist. NECK: Supple. CHEST: [Clear to auscultation. No respiratory distress.] HEART: [Regular rate and rhythm]. No murmur heard. [Normal peripheral pulses.] ABDOMEN: [Soft, nondistended], [nontender], [No rigidity or guarding] EXTREMITIES: Normal range of motion. [No edema.] SKIN: Warm, dry, no rash. NEURO: [No focal deficits]. Alert and oriented [x3.] PSYCH: Anxious individual but otherwise normal affect H&P: Results Labs Labs: Short CBC 10/13/24 Range/Units 02:57 WBC 7.8 (4.5-10.0) K/mm3 Hgb 14.9 (14.0-18.0) g/dL Hct 47.5 (42.0-52.0) % Plt Count 184 (150-375) k/mm3 BMP 10/13/24 02:57 Sodium 137 Potassium 3.9 Chloride 97 L Carbon Dioxide 28 BUN 16 Creatinine 1.15 Glucose 175 H Calcium 8.7 Cardiac Enzymes 10/13/24 10/13/24 Range/Units 02:57 05:33 Troponin I < 0.012 0.024 D (0.000-0.034) ng/mL Liver Function 04/04/25 Range/Units 02:57 Total Bilirubin 0.9 (0.2-1.3) mg/dL AST 36 (17-59) U/L ALT 46 (6-50) U/L Alkaline Phosphatase 124 (38-126) U/L Albumin 4.4 (3.5-5.1) g/dL Assessment and Plan Assessment and plan (1) Anxiety: Code(s): F41.9 - Anxiety disorder, unspecified Status: Acute (2) ACS (acute coronary syndrome): Code(s): I24.9 - Acute ischemic heart disease, unspecified Status: Acute (3) Atrial fibrillation: Qualifiers: Atrial fibrillation type: unspecified Qualified Code(s): I48.91 - Unspecified atrial fibrillation Code(s): I48.91 - Unspecified atrial fibrillation Status: Acute (4) Essential hypertension: Code(s): I10 - Essential (primary) hypertension Status: Acute (5) Coronary artery disease: Onset Date: ~2001 Code(s): I25.10 - Atherosclerotic heart disease of [place] coronary artery without angina pectoris Status: Acute (6) Cardiomyopathy: Qualifiers: Cardiomyopathy type: unspecified Qualified Code(s): I42.9 - Cardiomyopathy, unspecified Code(s): I42.9 - Cardiomyopathy, unspecified Status: Acute (7) Status post aorto-coronary artery bypass graft: Code(s): Z95.1 - Presence of aortocoronary bypass graft Status: Acute (8) Mixed hyperlipidemia: Code(s): E78.2 - Mixed hyperlipidemia Status: Chronic (9) Depression with anxiety: Code(s): F41.8 - Other specified anxiety disorders Status: Chronic (10) Chronic obstructive pulmonary disease, unspecified: Qualifiers: COPD type: unspecified COPD Qualified Code(s): J44.9 - Chronic obstructive pulmonary disease, unspecified Code(s): J44.9 - Chronic obstructive pulmonary disease, unspecified Status: Chronic Plan Shortness of breath, anxiety Secondary to panic attack Symptoms improved Follow troponin level PT meds Continue monitor Hyperthyroid Next month or Chronic AFib On amiodarone, Eliquis Diastolic CHF/CAD Status post bypass in 2001 EF 55-60% bumex, metoprolol, Entresto, statin, spironolactone COPD Home inhaler DM 2 If an echo check Chronic respiratory failure with hypoxia 3 lit at rest, 4l night time Home inhalers
[2024-10-13] MEDS: BACLOFEN 10 MG TABLET PO (11:39)
[2024-10-13] MEDS: PREGABALIN (*CRX) 50 MG CAPSULE 100 MG PO (11:40)
[2024-10-13] MEDS: SPIRONOLACTONE 25 MG TABLET PO (11:40)
[2024-10-13] MEDS: APIXABAN 5 MG TABLET PO (11:40)
[2024-10-13] MEDS: CLOPIDOGREL BISULFATE 75 MG TABLET PO (11:40)
[2024-10-13] MEDS: EMPAGLIFLOZIN 25 MG TABLET PO (11:40)
[2024-10-13] MEDS: AMIODARONE HCL 200 MG TABLET PO (11:40)
[2024-10-13] MEDS: BUMETANIDE 1 MG TABLET 2 MG PO (11:40)
[2024-10-13] MEDS: VENLAFAXINE HCL XR 37.5 MG CAP PO (11:43)
[2024-10-13] MEDS: SACUBITRIL/VALSARTAN 12-13 MG TABLET 1 TAB PO (11:43)
[2024-10-13 13:13] LABS: Troponin I < 0.012 ng/mL (0.000-0.034)
--- NOTE | 2024-10-13 13:38 | P.DS_ITS ---
DS: Admitting Diagnosis Discharge Date 10/13/24 Admitting Diagnosis panic attack Shortness of breath/anxiety Narrative: Patient with history of CAD, CHF, atrial fibrillation status post ablation, prior stroke, anxiety, panic attack presents with shortness of her breath and feeling panic attack. Patient notes his symptoms started yesterday and is similar to previous panic attack attack. Patient denies any abdominal pain, nausea vomiting. EMS brought patient to ER because he called several times for panic/anxiety attack. Ultrasound was unremarkable. Chest x-ray, EKG unremarkable. Troponin 0.012 on repeat was 0.024. Patient was admitted for further management. At time of my exam patient feeling better. His symptoms improving. He thinks he had a panic attack last night. Discussed with patient . Troponin levels negative. Will discharge patient DS: Discharge Diagnosis Discharge Diagnosis (1) Anxiety: Code(s): F41.9 - Anxiety disorder, unspecified Status: Acute (2) ACS (acute coronary syndrome): Code(s): I24.9 - Acute ischemic heart disease, unspecified Status: Acute (3) Atrial fibrillation: Qualifiers: Atrial fibrillation type: unspecified Qualified Code(s): I48.91 - Unspecified atrial fibrillation Code(s): I48.91 - Unspecified atrial fibrillation Status: Acute (4) Essential hypertension: Code(s): I10 - Essential (primary) hypertension Status: Acute (5) Coronary artery disease: Onset Date: ~2001 Code(s): I25.10 - Atherosclerotic heart disease of [place] coronary artery without angina pectoris Status: Acute (6) Cardiomyopathy: Qualifiers: Cardiomyopathy type: unspecified Qualified Code(s): I42.9 - Cardiomyopathy, unspecified Code(s): I42.9 - Cardiomyopathy, unspecified Status: Acute (7) Status post aorto-coronary artery bypass graft: Code(s): Z95.1 - Presence of aortocoronary bypass graft Status: Acute (8) Mixed hyperlipidemia: Code(s): E78.2 - Mixed hyperlipidemia Status: Chronic (9) Depression with anxiety: Code(s): F41.8 - Other specified anxiety disorders Status: Chronic (10) Chronic obstructive pulmonary disease, unspecified: Qualifiers: COPD type: unspecified COPD Qualified Code(s): J44.9 - Chronic obstructive pulmonary disease, unspecified Code(s): J44.9 - Chronic obstructive pulmonary disease, unspecified Status: Chronic Plan Shortness of breath, anxiety Secondary to panic attack Symptoms improved troponin neg PT meds Continue monitor 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 Patient notes his symptoms started yesterday and is similar to previous panic attack attack. Patient denies any abdominal pain, nausea vomiting. EMS brought patient to ER because he called several times for panic/anxiety attack. Ultrasound was unremarkable. Chest x-ray, EKG unremarkable. Troponin 0.012 on repeat was 0.024. Patient was admitted for further management. At time of my exam patient feeling better. His symptoms improving. He thinks he had a panic attack last night. Discussed with patient . Troponin levels negative. Will discharge patient Status at Discharge Cognitive/behavioral status at discharge: improved Time Spent with Patient Time attestation: Total time spent providing and/or coordinating discharge services: Time spent: Greater than 30 minutes Exam Narrative: GENERAL: Obese but overall well-appearing and not in any acute distress. HEAD: [Normocephalic, atraumatic.] EYES: [PERRLA and EOMI.] ENT: Nares clear, no rhinorrhea or epistaxis. Mucous membranes moist. NECK: Supple. CHEST: [Clear to auscultation. No respiratory distress.] HEART: [Regular rate and rhythm]. No murmur heard. [Normal peripheral pulses.] ABDOMEN: [Soft, nondistended], [nontender], [No rigidity or guarding] EXTREMITIES: Normal range of motion. [No edema.] SKIN: Warm, dry, no rash. NEURO: [No focal deficits]. Alert and oriented [x3.] PSYCH: Anxious individual but otherwise normal affect DS: Data Data Completed and Pending Labs on day of discharge: Labs from last 24 hours 10/13/24 10/13/24 10/13/24 12:30 12:29 05:33 WBC RBC Hgb Hct MCV MCH MCHC RDW Plt Count MPV Immature Gran % (Auto) Neut % (Auto) Lymph % (Auto) [place] % (Auto) Eos % (Auto) Baso % (Auto) Lymph # (Auto) [place] # (Auto) Eos # (Auto) Baso # (Auto) Abs Immat Gran (auto) Absolute Neuts (auto) Absolute Nucleated RBC Nucleated RBC % PT INR APTT Sodium Potassium Chloride Carbon Dioxide Anion Gap BUN Creatinine Estim Creat Clear Calc Estimated GFR Glucose Hemoglobin A1c Pending Calcium Total Bilirubin AST ALT Alkaline Phosphatase Troponin I < 0.012 D 0.024 D Total Protein Albumin Lipase 10/13/24 02:57 WBC 7.8 RBC 5.09 Hgb 14.9 Hct 47.5 MCV 93.3 MCH 29.3 MCHC 31.4 L RDW 15.1 H Plt Count 184 MPV 9.7 Immature Gran % (Auto) 0.4 Neut % (Auto) 65.9 Lymph % (Auto) 17.7 L [place] % (Auto) 9.5 H Eos % (Auto) 5.6 H Baso % (Auto) 0.9 Lymph # (Auto) 1.38 [place] # (Auto) 0.7 H Eos # (Auto) 0.4 H Baso # (Auto) 0.1 Abs Immat Gran (auto) 0.03 Absolute Neuts (auto) 5.1 Absolute Nucleated RBC 0.000 Nucleated RBC % 0.0 PT 13.7 INR 1.0 APTT 31.5 Sodium 137 Potassium 3.9 Chloride 97 L Carbon Dioxide 28 Anion Gap 12 BUN 16 Creatinine 1.15 Estim Creat Clear Calc Not Reportable Estimated GFR > 60 Glucose 175 H Hemoglobin A1c Calcium 8.7 Total Bilirubin 0.9 AST 36 ALT 46 Alkaline Phosphatase 124 Troponin I < 0.012 Total Protein 8.0 Albumin 4.4 Lipase 119 Discharge Plan Discharge Attending physician on discharge: Rustam Ambrocio Discharging Clinician: Rustam Ambrocio Activity: as tolerated Diet: heart healthy Patient Instructions: Clopidogrel (By mouth), Heart Failure (GEN), Suicide Prevention (DC), Depression Management for Older Adults (DC) Patient Language: Latvian Discharge Medications: No Action Jardiance 25 mg tablet 25 mg PO DAILY Qty: 90 0RF bumetanide 2 mg tablet 2 mg PO BID amiodarone 200 mg tablet 200 mg PO DAILY Entresto 24-26 mg tablet 0.5 tablet PO BID naloxone [Narcan] 4 mg/actuation spray,non-aerosol 4 mg intranasal Q2M PRN (Reason: opioid overdose) Qty: 2 0RF Rx Instructions: spray 1 dose into ONE nostril; alternate nostrils w each dose until help arrives cyclobenzaprine 10 mg tablet 10 mg PO HS PRN (Reason: as needed) Patient Comments: Patient takes daily venlafaxine 37.5 mg capsule,extended release 24hr 37.5 mg PO QPM oxycodone 5 mg tablet 5 mg PO BID PRN (Reason: pain) Patient Comments: Pain in back and feet. Patient ran out before refill available. Mounjaro 5 mg/0.5 mL pen injector 5 mg SUBCUT WEEKLY clopidogrel 75 mg Tablet 75 mg PO QAM Qty: 30 0RF baclofen 10 mg tablet 10 mg PO BID pregabalin 100 mg capsule 100 mg PO BID spironolactone 25 mg tablet 25 mg PO DAILY lidocaine 5 % adhesive patch,medicated 1 patch topical DIRECTED PRN (Reason: Pain) Patient Comments: lower back albuterol sulfate [Proventil HFA] 90 mcg/actuation Hfa Aerosol Inhaler 2 puff INHALATION Q4H PRN (Reason: Shortness Of Breath Or Wheezing) fluticasone propionate 50 mcg/actuation spray,suspension 2 spray INTRANASAL DAILY PRN (Reason: RHINITIS) atorvastatin 80 mg tablet 80 mg PO QPM metformin 500 mg tablet 1,000 mg PO Q12H Qty: 360 1RF Eliquis 5 mg tablet 5 mg PO BID Qty: 180 1RF Date of admission: 10/13/24 08:00 Primary Care Provider: RamyAzar Admitting Provider: Francisca Thomas Attending physician on admission: Francisca Thomas Condition: Stable
[2024-10-13 13:57] LABS: Hemoglobin A1C 7.4 % (<5.7)
--- OUTSIDE RECORDS SUMMARY | 2024-10-16 10:03 | XMS_ITS | Clinical Summary ---
Author Organization [facility] [employer] Address [address] [place] [address] Care Team Providers Care Wreath Machine Operator Name Role Phone Valdo Wu DO Primary Care Provider [phone] Source Comments [facility] [employer],non-owned Affiliates and Associated Physician Practices is amultiple site organization consisting of ambulatory clinics and hospital sitesin [place], [place], [place] and [place]. This disclosure is being madepursuant to the Care Everywhere program and may not contain all information available regarding this patient. 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 5 Chronic systolic [...] Comments Blood Pressure 111/65 07/04/2018 11:56 AM ARTIFICIAL STONE APPLICATOR Pulse 96 07/04/2018 11:56 AM ARTIFICIAL STONE APPLICATOR Temperature 37 C (98.6 F) 07/04/2018 11:56 AM ARTIFICIAL STONE APPLICATOR Respiratory Rate 20 07/04/2018 11:56 AM ARTIFICIAL STONE APPLICATOR Oxygen Saturation 93% 07/04/2018 11:56 AM ARTIFICIAL STONE APPLICATOR Inhaled Oxygen Concentration - - Weight 88.5 kg (195 lb) 06/30/2018 4:09 PM ARTIFICIAL STONE APPLICATOR Height 177.8 cm (5' 10 ) 06/30/2018 4:09 PM ARTIFICIAL STONE APPLICATOR Body Mass Index 27.98 06/30/2018 4:09 PM ARTIFICIAL STONE APPLICATOR Plan of Treatment Health Maintenance Due Date [...] Documents on File Type Date Recorded Patient Chairman Expl anation Adv Directive/Living Will/POA 06/13/2018 5:46 [...] 9:26 PM 06/06/2018 6:24 PM Care Teams Wreath Machine Operator Relationship Specialty Start Date End Date Valdo Wu DO [address] [place] [address] PCP - General 02/16/22
--- OUTSIDE RECORDS SUMMARY | 2024-10-16 10:03 | XMS_ITS | Encounter Summary ---
Author Organization [facility] Facility Care Team Providers Care Cake Cutter Machine Name Role Phone Barbara Chen MD Primary Care Provider [phone] Valdo Wu DO Primary Care Provider [phone] Valdo Wu DO Primary Care Provider [phone] Martell Vasquez MD Unavailable [phone] Unknown, Notinfile Primary Care Provider Unavail able Unknown, Notinfile Primary Care Provider Unavail able Unknown, Notinfile Primary Care Provider Unavail able Unknown, Notinfile Primary Care Provider Unavail able Valdo Wu DO Primary Care Provider [phone] Mona Nieves MD Primary Care Provider Braulio Alexandre DO Unavailable [phone] Cedric Spence MD Unavailable [phone] Luz Maria Burns MD Unavailable Osman Pantoja MD Unavailable [phone] Azar Mccann MD Primary Care Provider [phone] Char Molina RN Unavailable [phone] Ruel Villa MD Unavailable [phone] Encounter Details Date Type Department Care Team (Latest Contact Info) Description 06/02/2016 Orders Only [facility]INCON[facility] ProviderIbis MD [address] [place] [address] Social History Tobacco Use Types Packs/Day Years Used Date Smoking Tobacco: Never Assessed Sex and Gender Information Value Date Recorded Sex Assigned at Not on file Legal 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 Gender Identity Male 10/12/2023 1:45 PM CDT Sexual Orientation Not on file documented as of this encounter Plan of Treatment Not on file documented as of this encounter Procedures Procedure Name Priority Date/Time Associated Diagnosis Comments CARDIOLOGY REPORT 06/11/2016 12: 00 AM VINYL FLOORING INSTALLER CARDIOLOGY REPORT 06/11/2016 12: 00 AM VINYL FLOORING INSTALLER CARDIOLOGY REPORT 06/11/2016 12: 00 AM VINYL FLOORING INSTALLER documented in this encounter Results * CARDIOLOGY REPORT (06/11/2016 12:00 AM VINYL FLOORING INSTALLER) Anatomical Region Laterality Modality Other Narrative 06/11/2016 12:00 AM VINYL FLOORING INSTALLER Ordered by an unspecified provider. Historical Provider CV CARDIAC SERVICES PROCE DURES Final Result * CARDIOLOGY REPORT (06/11/2016 12:00 AM VINYL FLOORING INSTALLER) Anatomical Region Laterality Modality Other Narrative 06/11/2016 12:00 AM VINYL FLOORING INSTALLER Ordered by an unspecified provider. [facility] Provider CV CARDIAC SERVICES PROCE DURES Final Result * CARDIOLOGY REPORT (06/11/2016 12:00 AM VINYL FLOORING INSTALLER) Anatomical Region Laterality Modality Other Narrative 06/11/2016 12:00 AM VINYL FLOORING INSTALLER Ordered by an unspecified provider. [facility] Provider CV CARDIAC SERVICES PROCE DURES [...] criteria for COVID-19 isolation discontinuation. Edna Landers, CALCULATING MACHINE MECHANIC 02/10/2020 Automatically added due to negative COVID-19 result. 02/09/2020 02/09/2020 02/10/2020 7:34 AM C DT COVID: Suspected 01/11/2024 01/11/2024 01/11/2024 8:35 PM CDT documented as of this encounter Care Teams Cake Cutter Machine Relationship Specialty Start Date End Date Barbara [...] Practice 12/08/22 05/30/23 Azar Mccann MD [address] [address] PCP - General Family Medicine 05/31/23 Martell Vasquez MD [address] [facility] [address] [address] Special Library Librarian Cardiology 05/29/19 05/30/23 Braulio Alexandre DO [address] [facility] [address] [place] [address] Pain Management 03/18/23 Cedric Spence MD [address] [facility] [address] [place], [place] [id number] Consulting Physician Interventional Cardiology 03/18/23 [place] [address] [address] [facility] [address] [place] [address] Consulting Physician Endocrinology Diabetes & Metabolism 03/18/23 Osman Pantoja MD [address] [place] [address] Referring Physician Emergency Medicine 04/22/23 Char Molina, RN [address] [facility] [address] [place], [place] [id number] SHOP Outpatient Ampoule Filler 08/27/23 08/27/23 Ruel Villa MD [address] [facility] [address] [place] [address] Consulting Physician Clinical Cardiac Electrophysiology 01/15/24 documented as of this encounter
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
--- OUTSIDE RECORDS SUMMARY | 2024-10-16 10:03 | XMS_ITS | Encounter Summary ---
Author Organization [facility] Facility Care Team Providers Care Electrologist Name Role Phone Barbara Chen MD Primary Care Provider [phone] Valdo Wu DO Primary Care Provider [phone] Valdo Wu DO Primary Care Provider [phone] Martell Vasquez MD Unavailable [phone] Unknown, Notinfile Primary Care Provider Unavail able Unknown, Notinfile Primary Care Provider Unavail able Unknown, Notinfile Primary Care Provider Unavail able Unknown, Notinfile Primary Care Provider Unavail able Valdo Wu DO Primary Care Provider [phone] Mona Nieves MD Primary Care Provider Braulio Alexandre DO Unavailable [phone] Cedric Spence MD Unavailable [phone]- [phone] Luz Maria Burns MD Unavailable Osman Pantoja MD Unavailable [phone] Azar Mccann MD Primary Care Provider [phone] Char Molina RN Unavailable [phone] Ruel Villa MD Unavailable [phone] Encounter Details Date Type Department Care Team (Latest Contact Info) Description 04/30/2016 Orders Only [facility] CLINCONV ProviderIbis MD [address] [place] [id number] Social History Tobacco Use Types Packs/Day Years Used Date Smoking Tobacco: Never Assessed Sex and Gender Information Value Date Recorded Sex Assigned at Not on file Legal Sex Male 4:10 AM SENIOR BACKUP ADMINISTRATOR Gender Identity Male 10/12/2023 1:45 PM CDT [...] AM CDT Ordered by an unspecified provider. [facility] Provider Final Res ult * CARDIOLOGY REPORT (04/30/2016 12:00 AM CDT) Anatomical Region Laterality Modality Other Narrative 04/30/2016 12:00 AM CDT Ordered by an unspecified provider. [facility] Provider CV CARDIAC SERVICES PROCE DURES Final Result * CARDIOLOGY REPORT (04/30/2016 12:00 AM CDT) Anatomical Region Laterality Modality Other Narrative 04/30/2016 12:00 AM CDT Ordered by an unspecified provider. [facility] Provider CV CARDIAC SERVICES PROCE DURES Final Result * CARDIOLOGY REPORT (04/30/2016 12:00 AM CDT) Anatomical Region Laterality Modality Other Narrative 04/30/2016 12:00 AM CDT Ordered by an unspecified provider. [facility] Provider CV CARDIAC SERVICES PROCE DURES [...] criteria for COVID-19 isolation discontinuation. Edna Landers, BALE BREAKER OPERATOR 02/10/2020 Automatically added due to negative COVID-19 result. 02/09/2020 02/09/2020 02/10/2020 7:34 AM C DT COVID: Suspected 01/11/2024 01/11/2024 01/11/2024 8:35 PM CDT documented as of this encounter Care Teams Electrologist Relationship Specialty Start Date End Date Barbara [...] Practice 12/08/22 05/30/23 Azar Mccann MD [address] [place] [address] PCP - General Family Medicine 05/31/23 Martell Vasquez MD [address] [facility] [address] [place] [address] Purchasing Engineer Cardiology 05/29/19 05/30/23 Braulio Alexandre DO [address] [place] [address] [address] [facility] [address] [place] [address] Pain Management 03/18/23 Cedric Spence MD [address] [facility] [address], [place] [address] Consulting Physician Interventional Cardiology 03/18/23 [place] [address] [address] [facility] [address] [place] [address] Consulting Physician Endocrinology Diabetes & Metabolism 03/18/23 Osman Pantoja MD [address] [place] [address] Referring Physician Emergency Medicine 04/22/23 Char Molina, RN [address] [facility] [address] [place] [address] [facility] Outpatient Interior Design Professional 08/27/23 08/27/23 Ruel Villa MD [address] [facility] [address], [place] [address] Consulting Physician Clinical Cardiac Electrophysiology 01/15/24 documented as of this encounter
--- OUTSIDE RECORDS SUMMARY | 2024-10-16 10:03 | XMS_ITS | Encounter Summary ---
Author Organization [facility] Facility Care Team Providers Care Bpo Specialist Name Role Phone Barbara Chen MD Primary Care Provider [phone] Valdo Wu DO Primary Care Provider [phone] Valdo Wu DO Primary Care Provider [phone] Martell Vasquez MD Unavailable [phone] Unknown, Notinfile Primary Care Provider Unavail able Unknown, Notinfile Primary Care Provider Unavail able Unknown, Notinfile Primary Care Provider Unavail able Unknown, Notinfile Primary Care Provider Unavail able Valdo Wu DO Primary Care Provider [phone] Mona Nieves MD Primary Care Provider Braulio Alexandre DO Unavailable [phone] Cedric Spence MD Unavailable [phone]- [phone] Luz Maria Burns MD Unavailable Osman Pantoja MD Unavailable [phone] Azar Mccann MD Primary Care Provider [phone] Char Molina RN Unavailable [phone] Ruel Villa MD Unavailable [phone] Encounter Details Date Type Department Care Team (Latest Contact Info) Description 06/05/2016 Orders Only [facility] CLINCONV ProviderIbis MD [address] [place] [address] Social History Tobacco Use Types Packs/Day Years Used Date Smoking Tobacco: Never Assessed Sex and Gender Information Value Date Recorded Sex Assigned at Not on file Legal Sex Male 4:10 AM CLERICAL RECEPTIONIST Gender Identity Male 10/12/2023 1:45 PM CDT Sexual Orientation Not on file documented as of this encounter Plan of Treatment Not on file documented as of this encounter Procedures Procedure Name Priority Date/Time Associated Diagnosis Comments CARDIOLOGY REPORT 06/11/2016 12: 00 AM CLERICAL RECEPTIONIST documented in this encounter Results * CARDIOLOGY REPORT (06/11/2016 12:00 AM CLERICAL RECEPTIONIST) Anatomical Region Laterality Modality Other Narrative 06/11/2016 12:00 AM CLERICAL RECEPTIONIST Ordered by an unspecified provider. us Historical [...] criteria for COVID-19 isolation discontinuation. Edna Landers, ORACLE TECHNICAL DEVELOPER 02/10/2020 Automatically added due to negative COVID-19 result. 02/09/2020 02/09/2020 02/10/2020 7:34 AM C DT COVID: Suspected 01/11/2024 01/11/2024 01/11/2024 8:35 PM CDT documented as of this encounter Care Teams Bpo Specialist Relationship Specialty Start Date End Date Barbara [...] 05/30/23 Azar Mccann MD [address] [facility] [address] [place] [address] PCP - General Family Medicine 05/31/23 Martell Vasquez MD [address] [facility] [address] [address] Outboard Motor Mechanic Cardiology 05/29/19 05/30/23 Braulio Alexandre DO [address] [facility] [facility] [address] TRA[place] Lim [address] [address] Pain Management 03/18/23 Cedric Spence MD [address] [facility] [address], [place] [address] Consulting Physician Interventional Cardiology 03/18/23 [place] [address] [address] [facility] [address] [place] [address] Consulting Physician Endocrinology Diabetes & Metabolism 03/18/23 Osman Pantoja MD [address] [place] [address] Referring Physician Emergency Medicine 04/22/23 Char Molina, KENYA [address] [facility] [address] [place] [address] [employer] Outpatient Forestry Fire Aid 08/27/23 08/27/23 Ruel Villa MD [address] [facility] [address] [place] [address] Consulting Physician Clinical Cardiac Electrophysiology 01/15/24 documented as of this encounter
--- OUTSIDE RECORDS SUMMARY | 2024-10-16 10:03 | XMS_ITS | Referral Summary ---
Author Organization [facility] [address] Address [address] [place] [address] Care Team Providers Care Animal Husbandman Name Role Phone Braulio Alexandre DO Unavailable [phone] Cedric Spence MD Unavailable + [phone] Luz Maria Burns MD Unavailable Osman Pantoja MD Unavailable [phone] Azar Mccann MD Primary Care Provider [phone] Ruel Villa MD Unavailable [phone] Encounters Date Type Department Care Team Description 10/16/2024 ACO Quality [facility] Accountable Care Organization [address] [place] [address] Taylor Hanna 09/26/2024 11:00 AM CDT Office Visit [facility] Primary Care at [address] [phone] Lacy Durham NP Annual physical exam (Primary Dx); Generalized anxiety disorder; Class 3 obesity with alveolar hypoventilation, serious comorbidity, and body mass index (BMI) of 40.0 to 44.9 in adult (HCC); Centrilobular emphysema (HCC); Longstanding persistent atrial fibrillation (HCC); 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; Essential (primary) hypertension; Screening PSA (prostate specific antigen); Hypertension associated with type 2 diabetes mellitus (HCC); Hyperlipidemia associated with type 2 diabetes mellitus (HCC); Obstructive sleep apnea; Type 2 diabetes mellitus with hyperglycemia, without long-term current use of insulin (HCC); Chronic combined systolic and diastolic congestive heart failure (HCC); Cardiac arrest with ventricular fibrillation (HCC) 09/21/2024 Telephone [facility] Medical [facility] Cardiology [address] [facility] [address] [place] [phone] Cedric Spence MD 08/29/2024 Orders Only [facility] Diabetes and Endocrinology [address] [place] [phone] ProviderIbis MD 08/21/2024 Telephone [facility] Cardiology [address] [place] [phone] Cedric Spence MD 08/17/2024 Telephone [facility] Diabetes and Endocrinology [address] [place] [phone] Ricarda Myers NP Med Refill 07/31/2024 10:00 AM VETERINARY ANATOMIST Ancillary Procedure [facility] [address] [facility] [address] [place] [phone] Presence of biventricular cardiac pacemaker (Primary Dx); Ischemic cardiomyopathy 07/31/2024 9:30 AM VETERINARY ANATOMIST Office Visit [facility] Diabetes and Endocrinology [address] [place] [phone] Ricarda Myers NP Type 2 diabetes mellitus [...] THEN 1 TABLET DAILY. 90 tablet 1 025 Active GaviLyte-G 236-22.74-6.74 -5.86 gram solution 240 ML ORALLY EVERY 10 MINUTES FOLLOW INSTRUCTIONS FROM YOUR PROVIDER 024 Active tirzepatide (MOUNJARO) 7.5 mg/0.5 mL pen injectorIndicat ions:Type 2 diabetes mellitus with hyperglycemia, without long-term current use of insulin ([facility]) Inject 7.5 mg under the skin every 7 days 6 mL 3 025 2025 Active Additional Information Patient not taking.Reported on 09/26/2024 spironolactone (ALDACTONE) 25 mg tablet TAKE 1 TABLET BY MOUTH DAILY 90 tablet 025 Active pregabalin (LYRICA) 100 mg capsule TAKE 1 CAPSULE BY MOUTH TWICE A DAY 60 capsule 2 Active empagliflozin (Jardiance) 25 mg tabletIndicatio ns:Type 2 diabetes mellitus with hyperglycemia, without long-term current use of insulin ([facility]) TAKE 1 TABLET (25 MG TOTAL) BY MOUTH DAILY. 90 tablet 1 Active Additional Information Patient not taking.Reported on 09/26/2024 methIMAzole (TAPAZOLE) 5 mg tabletIndicatio ns:Hyperthyroid ism Take 4 tablets (20 mg total) by mouth daily for 14 days 56 tablet 025 Active clopidogreL (PLAVIX) 75 mg tabletIndicatio ns:myocardial infarction prevention,card iovascular disease Take 1 tablet (75 mg total) by mouth daily 90 tablet 025 Active Eliquis 5 mg tablet Take 1 tablet (5 mg total) by mouth 2 (two) times a day 180 tablet 025 Active venlafaxine XR (EFFEXOR-XR) 37.5 mg 24 [...] 11/16/2023 Assessment & Plan (07/31/2024 8:52 AM VETERINARY ANATOMIST): Chronic problem. Currently taking Entresto 12-13mg bid, [...] 09/09/2023 Assessment & Plan (09/09/2023 7:47 AM VETERINARY ANATOMIST): Complaining of acute upon chronic back pain. [...] 08/2023. Assessment & Plan (09/09/2023 7:40 AM VETERINARY ANATOMIST): Patient is actually doing well status post [...] needed Assessment & Plan (06/02/2023 3:18 PM VETERINARY ANATOMIST): A(n) yearly Medicare Annual Wellness Visit has [...] 04/25/2023 Assessment & Plan (07/31/2024 8:51 AM VETERINARY ANATOMIST): Chronic problem. Currently taking Atorvastatin 80mg. Last lipid panel: 01/12/24 LDL=84, TG=65. Assessment & Plan (03/16/2024 10:21 AM CDT): Chronic problem. Currently taking Atorvastatin 80mg. Last lipid panel: 01/12/24 LDL=84, TG=65. Assessment & Plan (11/16/2023 3:03 PM CDT): Chronic problem. Currently taking Atorvastatin 40mg. Last lipid panel: 09/13/23 LDL=95, TR=780. Assessment & Plan (04/26/2023 9:32 AM CDT): Chronic problem. Currently taking Atorvastatin 40mg. Last lipid panel: 11/12/22 LDL=52, AO=713. Diabetic polyneuropathy asso ciated with type 2 diabetes mellitus 03/19/2023 Assessment & Plan (07/31/2024 10:20 AM VETERINARY ANATOMIST): Chronic problem. Currently sees Dr Mejia in [place] for pain. Chronic problem. Currently taking lyrica 100mg bid, duloxetine 40mg every morning & lidocream to his feet. Reviewed foot care; needs to lotion daily. Aware to check feet nightly, not to go barefoot. Assessment & Plan (03/16/2024 10:22 AM CDT): Chronic problem. Currently sees Dr Mejia in [place] for pain. Chronic problem. Currently taking lyrica 100mg bid, duloxetine 60mg every morning & lidocream to his feet. Reviewed foot care; needs to lotion daily. Aware to check feet nightly, not to go barefoot. Assessment & Plan (11/16/2023 3:03 PM CDT): Chronic problem. Currently sees Dr Mejia in [place] for pain. Currently taking lyrica 100mg bid, duloxetine 60mg every morning & lidocream to his feet. Aware to check feet nightly & to not go barefoot. Assessment & Plan (04/26/2023 9:32 AM CDT): Chronic problem. Currently sees Dr Mejia in [place] for pain. Currently taking lyrica 100mg bid, [...] endocrinology. Assessment & Plan (07/31/2024 10:12 AM VETERINARY ANATOMIST): Chronic problem. A1c uncontrolled & worsening from 7.8% 03/16/24 to now 8.5%. Reviewed that goal is less than 7.0% Will increase Mounjaro from 5mg to 7.5mg on next refill. He will check at home to see if he has jardiance & is taking it. No recent fills. Current medications: Metformin 1000mg twice daily Mounjaro 7.5 mg weekly Jardiance 25mg daily DM eye exam [facility] less than 1 yr ago. Letter [...] Jardiance 25mg daily DM eye exam 06/2023 [facility]; letter sent to get copy. Reports he was seen at [facility] in [place] in 2023. Will send letter there also. [...] Chronic problem. Near goal. A1c was 9.8% 2/9/24 and now 7.8%. Stop the Rybelsus & start Mounjaro 2.5mg weekly. Current medications: Metformin 1000mg twice daily Mounjaro 2.5mg weekly Jardiance 25mg daily DM eye exam 06/2023 [facility]; letter sent to get copy. [...] infection. Assessment & Plan (09/09/2023 7:45 AM VETERINARY ANATOMIST): Patient missed his follow-up with endocrinology while [...] #/address to contact re: results. Letter to [facility] for last years DM eye exam. Has [...] provided. Assessment & Plan (09/09/2023 7:49 AM VETERINARY ANATOMIST): Chronic. Suboptimally controlled. Encouraged low carb diet, [...] 07/03/2018 Assessment & Plan (07/31/2024 10:20 AM VETERINARY ANATOMIST): Chronic problem. Currently taking methimazole 25 mg [...] defibrillator. Assessment & Plan (09/09/2023 7:47 AM VETERINARY ANATOMIST): Continues Eliquis, also on Plavix and aspirin since discharge and placement of 2 new stents. Assessment & Plan (03/19/2023 4:37 PM CDT): Chronic. On digoxin and NOAC. Defer medication and care to his hogshead roller. Needs to keep his hyperthyroidism under control Atrial septal defect 02/08/2015 12/08/2022 Atherosclerotic heart diseas e of [place] coronary artery without angina pectoris 01/10/2015 Overview [...] icd Assessment & Plan (09/09/2023 7:45 AM VETERINARY ANATOMIST): EF 40-50%. Has been started on Entresto. [...] old CT reports in 2013 and 2019 [facility] current use of anticoagulant 5 12/08/2022 Assessment & Plan (03/19/2023 4:36 PM CDT): Chronic for AFib. Bleeding precautions recommended Essential (primary) hypertension 09/27/2014 12/08/2022 Assessment & Plan (03/19/2023 4:34 PM CDT): Chronic. Very well controlled. Patient's cardiac measured being use more for his CHF, AFib and CAD Obstructive sleep apnea 09/27/2014 12/09/19 23 Assessment & Plan (09/26/2024 11:20 AM CDT): Has cpap - uses nightly. Gets supplies through previous sleep doctor. And med supplier- IV & Respiratory Assessment & Plan (03/19/2023 4:37 PM CDT): Chronic. Uses CPAP/BiPAP type machine nightly. Reports he follows with a folding machine feeder. Patient declines referral to [facility] pulmonology/sleep Medicine Generalized anxiety disorder 09/22/2014 [...] 12/14/2022 09/09/2023 Body mass index 40.0-44.9, adult (CMS/HCC) 04/06/2022 12/08/2022 Mixed hyperlipidemia 10/08/2020 024 Assessment & Plan (03/19/2023 4:36 PM CDT): Chronic. On atorvastatin. Tolerates Mitral insufficiency 05/30/2019 025 Old [place] (myocardial infarction) 05/30/2019 12/08/2022 Congestive heart failure [...] 12/08/20222022 Acute respiratory failure wi th hypercapnia ([facility]/HCC) 09/22/2014 12/08/2022 Immunizations Immunization Administration Dates Next Due Influenza, Quadrivalent, Hig h Dose, Preservative Free, Intrr 05/31/2023 Influenza, Unspecified 07/12/2022(Deferred: Nancy ent Refused) Pfizer SARS-CoV-2 Monovalent Vaccination (12+ Yrs) PURPLE 10/01/2020,09/10/2020 Pneumococcal Conjugate Pcv20 05/31/2023 Social History Tobacco Use Types Packs/Day Years Used Date Smoking Tobacco: Former Cigarettes 1 30 0 10/08/1987 - 10/07/2017 Passive Smoke Exposure: Past Smokeless Tobacco: Current Chew [facility] Utilities Answer Date Recorded In the past [...] often do you attend chur ch or uatsdin services? More than 4 times per year 01/17/2024 Do you belong to any clubs o r organizations such as zoroastrianism groups, unions, fraternal or athletic groups, or [...] place to sleep or slept in a group home (including now)? Patient declined 08/27/2023 PHQ-9 Answer [...] any time in the past 12 m [facility], were you homeless or living in a group home (including now)? No 01/17/2024 Personal Safety Answer Date Recorded Have you ever been in or are you currently in a harmful physical or emotional relationship or is someone making you feel afraid or unsafe? Yes 01/17/2024 Sex and Gender Information Value Date Recorded Sex Assigned at Not on file Legal Sex Male 4:10 AM VETERINARY ANATOMIST Gender Identity Male 10/12/2023 1:45 PM CDT [...] on file Medical Devices Implanted Type Area Forestry Contractor Device Identifier Shelf Expiration Date Model / Serial / Lot TerTiempo Caryl Angio-Seal Vip 6fr Closere Device [id number] - [id number] - [id number] Implanted:Qty : 1 on 08/24/2023 by Dane Gould MD at [facility] Collagen Right: Common Femoral Artery [employer] Caryl 12/17/2023 [id number] / [id number] / [id number] CardiProtoShare Medical Inc Vascade Mvp 6-12fr Venous Closure [id number] - [id number] - [id number] Implanted:Qty : 1 on 01/14/2024 by Ruel Villa MD at [facility] Collagen Cardiva Medical Inc 10/12/2025 [id number] / [id number] / [id number] Grewal Vascular Active Fixation Steroid Eluting Latex Free Sterile Right Atrium Ventricle Ultipace 58cm Hif3547/58 - [id number] - [id number] Implanted:Qty : 1 on 01/14/2024 by Ruel Villa MD at [facility] Lead Grewal Vascular [id number] 11/08/2026 [id number]/ [id number] / [id number] / [employer] Ric[employer] Inc Quartet 4.7fr 86cm Quadripolar Is-4 Llll Connector 8 Curve Low 1456q/86 - [id number] - [id number] Implanted:Qty : 1 on 01/14/2024 by Ruel Villa MD at [facility] Lead [employer] Ric[employer] Inc [id number] 11/08/2026 1456Q/86 / [id number] / Grewal Vascular Pacemaker Dual Chamber Machine Operator Helper P Mri Compatible Quadra Allure Mp [id number] - [id number] - [id number] Implanted:Qty : 1 on 01/14/2024 by Ruel Villa MD at [facility] Pacemaker [employer] [id number] 03/11/2025 [id number] / [id number] / Biotronik Inc Stent Coronary De Rx Cocr Ors Msn 2.5x40mm 234857 - [id number] - [id number] Implanted:Qty : 1 on 08/24/2023 by Dane Gould MD at [facility] Stent Left: Anterior Descending Cornary Artery Biotronik Inc 04/13/2025 [id number] / [id number] / [id number] Biotronik Inc Stent Coronary De Rx Cocr Ors Msn 4.0x13mm 150245 - [id number] - [id number] Implanted:Qty : 1 on 08/24/2023 by Dane Gould MD at [facility] Stent Left: Anterior Descending Cornary Artery [employer] Inc 01/25/2025 [id number] / [id number] / [id number] Procedures Procedure Name Priority Date/Time Associated Diagnosis Comments COLONOSCOPY Routine 08/25/2024 8:30 AM VETERINARY ANATOMIST DEVICE CHECK - REMOTE Routine 07/31/2024 10:18 AM VETERINARY ANATOMIST Ischemic cardiomyopathy POCT GLUCOSE Routine 07/31/2024 9:19 AM VETERINARY ANATOMIST Type 2 diabetes mellitus with hyperglycemia, without long-term current use of insulin (HCC) POCT HEMOGLOBIN A1C Routine 07/31/2024 9 :19 AM VETERINARY ANATOMIST Type 2 diabetes mellitus with hyperglycemia, without long-term current use of insulin (HCC) EGFR STAT 01/16/2024 10:43 PM CDT LIPID PANEL Routine 01/12/2024 5:02 AM CDT HEPATITIS C ANTIBODY Routine 08/20/2023 8:41 PM VETERINARY ANATOMIST DIABETES EYE EXAM Routine 07/26/2023 9:09 AM VETERINARY ANATOMIST ALBUMIN CREATININE RATIO, URINE Routine 04/26/2023 9:46 AM CDT Type 2 diabetes mellitus with hyperglycemia, without long-term current use of insulin (HCC) from Last 3 Months or Most Recently Relevant to Health Maintenance Results * (ABNORMAL) COLONOSCOPY (08/25/2024 8:30 AM VETERINARY ANATOMIST) Scribed Colonoscopy Abnormal Historical Provider HEALTH MAINTENANCE Final Result * DEVICE CHECK - REMOTE (07/31/2024 10:18 AM VETERINARY ANATOMIST) Anatomical Region Laterality Modality Other Narrative 07/31/2024 11:53 AM VETERINARY ANATOMIST Table formatting from the original result was [...] (ABNORMAL) POCT hemoglobin A1c (07/31/2024 9:19 AM VETERINARY ANATOMIST) Hemoglobin A1C, POC 8.5 4.0 - 5.6 % Blood 07/31/2024 9:19 AM VETERINARY ANATOMIST us Ricarda Myers NP POINT OF CARE TEST ORDERA BLES Final Result * (ABNORMAL) POCT glucose (07/31/2024 9:19 AM VETERINARY ANATOMIST) Glucose Blood, POC 150 mg/dL Blood 07/31/2024 9:19 AM VETERINARY ANATOMIST us Ricarda Myers FINGERNAIL SCULPTOR POINT OF CARE TEST ORDERA BLES Final [...] LAB BLOOD ORDERABLES Fi nal Result [facility] [address] Department [place] [address] * (ABNORMAL) Lipid panel (01/12/2024 5:02 AM [...] on 2018. Triglycerides 65 <=149 mg/dL [facility] Comment: Interpretive Data Ages < [...] on 2018. HDL 38(L) >=40 mg/dL [facility] Comment: Interpretive Data Ages < [...] 2018. LDL, calculated 84 <=129 mg/dL [facility] Comment: Interpretive Data Ages < [...] on 2018. Non-HDL Cholesterol 97 mg/dL [facility] Comment: Interpretive Data Ages < [...] revised on 2018. Chol/HDL ratio 4 [facility] Blood 01/12/2024 5:02 AM CDT 01/12/2024 5:38 AM CDT us Karen Lopez MD LAB BLOOD ORDERABLES F inal Result [facility] [address] Department [place] [address] * Hepatitis C antibody Blood (08/20/2023 8:41 PM VETERINARY ANATOMIST) Hep C Ab Nonreactive Nonreactive [facility] Comment:Antibodies to HCV no t detected. Does NOT exclude the possibility of recent exposure to HCV. Current interpretive data was last revised on 22 Blood 08/20/2023 8:41 PM VETERINARY ANATOMIST 08/20/2023 9:26 PM VETERINARY ANATOMIST us Johnnie Bonilla MD LAB MICROBIOLOGY - GENERAL O RDERABLES Final Result MARIYA JEREZH [facility] [place] [address] * DIABETES EYE EXAM (07/26/2023 9:09 AM VETERINARY ANATOMIST) us Historical Provider HEALTH MAINTENANCE Final Result * [...] ORDERABLES Lindsey l Result Performing Organization Address City/[facility] Co de Phone Number MARIYA [address] [facility] Department [place] [address] from Last 3 Months or Most Recently Relevant to Health Maintenance Insurance [facility] MEDICARE HMO IDPA [employer] MEDICARE HMO IDPA Advance Directives For more information, please contact: [phone] Documents on File Type Date Recorded Patient Sheet Tester Expl anation ADVANCE DIRECTIVE 11/02/2017 12:00 AM RICHI R OF [employer]/MEDICAL * Full Code (Latest Code Status [...] selected below: No intubationNo cardioversion Care Teams Animal Husbandman Relationship Specialty Start Date End Date Azar Mccann MD [address] [place], [place] [phone] PCP - General Family Medicine 05/31/23 Braulio Alexandre DO [address] [facility] [address] [place] [address] Pain Management 03/18/23 Cedric Spence MD [address], [place] [phone] Consulting Physician Interventional Cardiology 03/18/23 [place] [address] [address] [place] [address] Consulting Physician Endocrinology Diabetes & Metabolism 03/18/23 Osman Pantoja MD [address] [place] [address] Referring Physician Emergency Medicine 04/22/23 Ruel Villa MD [address] [facility] [address], [place] [address] Consulting Physician Clinical Cardiac Electrophysiology 01/15/24
--- OUTSIDE RECORDS SUMMARY | 2024-10-16 10:03 | XMS_ITS | Encounter Summary ---
Author Organization [facility] Healthcare Address [address] [place] [address] Care Team Providers Care Train System Operator Name Role Phone Braulio Alexandre DO Unavailable [phone] Cedric Spence MD Unavailable [phone] Luz Maria Burns MD Unavailable Osman Pantoja MD Unavailable [phone] Azar Mccann MD Primary Care Provider [phone] Ruel Villa MD Unavailable [phone] Reason for Visit * Reason Comments Chart Review [employer] dm eye exam Encounter Details Date Type Department Care Team (Late st Contact Info) Description 10/16/2024 ACO Quality [facility] Accountable Care Organization [address] [place] [address] Taylor Hanna [address] [place] [address] [address] [place] [address] Social History Tobacco Use Types Packs/Day Years Used Date Smoking Tobacco: Former Cigarettes 1 30 0 10/08/1987 - 10/07/2017 Passive Smoke Exposure: Past Smokeless Tobacco: Current Chew [facility] Utilities Answer Date Recorded In the past 12 months has [employer] electric, gas, oil, or water company threatened [...] often do you attend chur ch or jehovah's witness services? More than 4 times per year 01/17/2024 Do you belong to any clubs o r organizations such as mandaen groups, unions, fraternal or athletic groups, or [...] place to sleep or slept in a senior living (including now)? Patient declined 08/27/2023 PHQ-9 Answer [...] any time in the past 12 m [facility], were you homeless or living in a senior living (including now)? No 01/17/2024 Personal Safety Answer Date Recorded Have you ever been in or are you currently in a harmful physical or emotional relationship or is someone making you feel afraid or unsafe? 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 documented in this encounter Plan of Treatment Not on file documented as of this encounter Visit Diagnoses Not on filedocumented in this encounter Care Teams Train System Operator Relationship Specialty Start Date End Date Azar Mccann MD [address] [place] [address] PCP - General Family Medicine 05/31/23 Braulio Alexandre DO [address] [facility] [address] [place] [address] Pain Management 03/18/23 Cedric Spence MD [address] [facility] [address] [place] [address] Consulting Physician Interventional Cardiology 03/18/23 [place] [address] [address] [facility] [address] [place] [address] Consulting Physician Endocrinology Diabetes & Metabolism 03/18/23 Osman Pantoja MD [address] [place] [address] Referring Physician Emergency Medicine 04/22/23 Ruel Villa MD [address] [facility] [address] [place] [address] Consulting Physician Clinical Cardiac Electrophysiology 01/15/24 documented as of this encounter
--- OUTSIDE RECORDS SUMMARY | 2024-10-16 10:03 | XMS_ITS | Continuity of Care Document ---
Author Organization [facility] Address [address] [place] [address] Phone Care Team Providers Care Farmworker Pullet Farm Name Role Phone Osman Chauhan MD Unavailable Unavailable Medications Medication Instructions Dosage Effective Dates (start - stop) Status Comments Neptune 10 mg-325 mg tablet take 1 tablet by oral route every 8 hours as needed for pain 1 tablet - Active Procedures Procedure Date OFFICE/OUTPATIENT VISIT, EST Advance Directives Directive Yes / No Effective Date File Name No Information Encounters Encounter Description Practice Location Reason(s) For Visit Diagnoses Date Provider Providers Copied on Encounter [facility], [address] [place] [address], [facility], tel:[phone] [facility] No Information 8 Tien Brewer. [address] [place], [place], [facility], . [phone] OFFICE/OUTPA TIENT VISIT, EST [facility], [address] [place] [address], [facility], tel:[phone] *[facility] Primary Care chronic conditions (chief complaint)[facility] Inpatient Stay (chief complaint) DDD (degenerative disc disease), lumbarSpinal stenosis of lumbar regionChronic bilateral low back pain without sciaticaDietary counseling and surveillanceAtri al fibrillation 6 Bambi Pandey. [address] [place], [place], [facility], . [phone] Family History Family Member Type Diagnosis Age At Onset No Information Payers Payer name Insurance type Covered constitution party ID Authoriza tion(s) No Information Social History [...] Referrals: Pain Medicine. [employer] [facility]. Location: [facility]. Evaluate and treat ordered Referral Ordered: Referrals: [...] he is having to take them frequently. [facility] Inpatient Stay Patient is h ere to follow up from recent [facility] Hospital Stay for Atrial Fib. Functional Status Date Functional Assessmen t No Information Instructions Date Instruction Additional Infor mation Patient has improved and is to continue present treatment. Related to Atrial fibrillation Patient was counsele d on diet and handout availability. Related to Dietary counseling and surveillance Patient was given pr escription for Neptune and increased strength to 10/325 but he will be referred to Pain Management for further treatment. Pharmacy called stating patient just filled a Neptune script for #[phone] on 12/18/2015 so the [...]
--- OUTSIDE RECORDS SUMMARY | 2024-10-16 10:03 | XMS_ITS | Encounter Summary ---
Author Organization [facility] Facility Care Team Providers Care Hris Administrator Name Role Phone aBrbara Chen MD Primary Care Provider [phone] Valdo Wu DO Primary Care Provider [phone] Valdo Wu DO Primary Care Provider [phone] Martell Vasquez MD Unavailable [phone] Unknown, Notinfile Primary Care Provider Unavail able Unknown, Notinfile Primary Care Provider Unavail able Unknown, Notinfile Primary Care Provider Unavail able Unknown, Notinfile Primary Care Provider Unavail able Valdo Wu DO Primary Care Provider [phone] Mona Nieves MD Primary Care Provider Braulio Alexandre DO Unavailable [phone] Cedric Spence MD Unavailable [phone]- [phone] Luz Maria Burns MD Unavailable Osman Pantoja MD Unavailable [phone] Azar Mccann MD Primary Care Provider [phone] Char Molina RN Unavailable [phone] Ruel Villa MD Unavailable [phone] Encounter Details Date Type Department Care Team (Latest Contact Info) Description 10/25/2017 Orders Only [facility] ProviderIbis MD [address] [place] [id number] Social History Tobacco Use Types Packs/Day Years Used Date Smoking Tobacco: Never Assessed Sex and Gender Information Value Date Recorded Sex Assigned at Not on file 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 Edna Landers, CENTRAL STORES ATTENDANT 02/10/2020 Automatically added due to negative COVID-19 result. 02/09/2020 02/09/2020 02/10/2020 7:34 AM C DT COVID: Suspected 01/11/2024 01/11/2024 01/11/2024 8:35 PM CDT documented as of this encounter Care Teams Hris Administrator Relationship Specialty Start Date End Date Barbara [...] 05/30/23 Azar Mccann MD [address] [facility] [address] [place] [address] PCP - General Family Medicine 05/31/23 Martell Vasquez MD [address] [facility] [address] [address] Gang Head Saw Operator Cardiology 05/29/19 05/30/23 Braulio Alexandre DO [address] [facility] [address] [facility] [address] [place] [address] Pain Management 03/18/23 Cedric Spence MD [address] [facility] [address], [place] [address] Consulting Physician Interventional Cardiology 03/18/23 [place] [address] [facility] [address] [place] [address] Consulting Physician Endocrinology Diabetes & Metabolism 03/18/23 Osman Pantoja MD [address] [place] [address] Referring Physician Emergency Medicine 04/22/23 Char Molina, KENYA [address] [facility] [address] [place] [address] SHOP Outpatient Bi Analyst 08/27/23 08/27/23 Ruel Villa MD [address] [facility] [address] [place] [address] Consulting Physician Clinical Cardiac Electrophysiology 01/15/24 documented as of this encounter
--- OUTSIDE RECORDS SUMMARY | 2024-10-16 10:03 | XMS_ITS | Encounter Summary ---
Author Organization [facility] Facility Care Team Providers Care Oil Well Service Operator Helper Name Role Phone Barbara Chen MD Primary Care Provider [phone] Valdo Wu DO Primary Care Provider [phone] Valdo Wu DO Primary Care Provider [phone] Martell Vasquez MD Unavailable [phone] Unknown, Notinfile Primary Care Provider Unavail able Unknown, Notinfile Primary Care Provider Unavail able Unknown, Notinfile Primary Care Provider Unavail able Unknown, Notinfile Primary Care Provider Unavail able Valdo Wu DO Primary Care Provider [phone] Mona Nieves MD Primary Care Provider Braulio Alexandre DO Unavailable [phone] Cedric Spence MD Unavailable [phone] Luz Maria Burns MD Unavailable Osman Pantoja MD Unavailable [phone] Azar Mccann MD Primary Care Provider [phone] Char Molina RN Unavailable [phone] Ruel Villa MD Unavailable [phone] Encounter Details Date Type Department Care Team (Latest Contact Info) Description 06/01/2016 Orders Only [facility]INCON[facility] ProviderIbis MD [address] [place] [address] Social History Tobacco Use Types Packs/Day Years Used Date Smoking Tobacco: Never Assessed Sex and Gender Information Value Date Recorded Sex Assigned at Not on file Legal 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 us Historical [...] criteria for COVID-19 isolation discontinuation. Edna Landers, DOCUMENT RESTORER 02/10/2020 Automatically added due to negative COVID-19 result. 02/09/2020 02/09/2020 02/10/2020 7:34 AM C DT COVID: Suspected 01/11/2024 01/11/2024 01/11/2024 8:35 PM CDT documented as of this encounter Care Teams Oil Well Service Operator Helper Relationship Specialty Start Date End Date Barbara [...] 05/30/23 Azar Mccann MD [address] [facility] [address] [place] [address] PCP - General Family Medicine 05/31/23 Martell Vasquez MD [address] [facility] [address] [address] Slab Lifting Engineer Cardiology 05/29/19 05/30/23 Braulio Alexandre DO [address] [facility] [address] [place] Lim [address] [address] Pain Management 03/18/23 Cedric Spence MD [address] [facility] [address] [address] Consulting Physician Interventional Cardiology 03/18/23 [place] [address] [address] [facility] [address] [place] [address] Consulting Physician Endocrinology Diabetes & Metabolism 03/18/23 Osman Pantoja MD [address] [place] [address] Referring Physician Emergency Medicine 04/22/23 Char Molina, KENYA [address] [facility] [address] [place] [address] SHOP Outpatient Boat Hop 08/27/23 08/27/23 Ruel Villa MD [address] [facility] [address] [place] [address] Consulting Physician Clinical Cardiac Electrophysiology 01/15/24 documented as of this encounter
== END 2024-10-13 14:51 | disposition home or self-care (01) ==
LOC: ANHED 07:22 → ANHIMU 12:21
PROVIDERS: Admitting Provider General Practice; Emergency Provider Student in an Organized Health Care Education/Training Program; PCP Family Medicine; Visit Provider Internal Medicine
DX: F41.8 Other specified anxiety disorders (principal); F41.0 Panic disorder [episodic paroxysmal anxiety]; I24.9 Acute ischemic heart disease, unspecified; I48.20 Chronic atrial fibrillation, unspecified; I11.0 Hypertensive heart disease with heart failure; I50.30 Unspecified diastolic (congestive) heart failure; I25.10 Atherosclerotic heart disease of native coronary artery without angina pectoris; I42.9 Cardiomyopathy, unspecified; E78.2 Mixed hyperlipidemia; J44.9 Chronic obstructive pulmonary disease, unspecified; J96.11 Chronic respiratory failure with hypoxia; G47.33 Obstructive sleep apnea (adult) (pediatric); E11.40 Type 2 diabetes mellitus with diabetic neuropathy, unspecified; E05.90 Thyrotoxicosis, unspecified without thyrotoxic crisis or storm; Z95.0 Presence of cardiac pacemaker; Z99.81 Dependence on supplemental oxygen; Z79.4 Long term (current) use of insulin; Z79.51 Long term (current) use of inhaled steroids; Z79.84 Long term (current) use of oral hypoglycemic drugs; Z79.899 Other long term (current) drug therapy; Z87.891 Personal history of nicotine dependence; Z95.1 Presence of aortocoronary bypass graft; Z86.73 Personal history of transient ischemic attack (TIA), and cerebral infarction without residual deficits
CPT/HCPCS: 36415; 71045; 80053; 83036; 83690; 84484; 85025; 85610; 85730; 93005; 96374; 96375; 99285; A9270; G0378; J1630; J1885; J2060